=== PATIENT | male | born 1960 | race African-American/Black ===

== ENCOUNTER → 2016-12-25 | Outpatient (CLI) | payer MEDICARE ==
[~2016-12-25] MED LIST: ADVAIR; ASA; ASP81CT PO; ASP81TEC PO; ASPI-266 PO; ASPI-999 PO; ATOR20TA66 PO; ATOR40TA PO; ATOR80TA; ATOR80TA PO; CEPH500T PO; CIPR-225 PO; CLOP75TA PO; CLPD75T; FLUT1DIS26 IH; FLX20C; FRSM20T; FURO40TA4 PO; HYDR-2890 PO; HYDR-34; HYDR-3720 PO; HYDR-3816 PO; HYDR-3820 PO; HYDR1TAB PO; Hydrocodone/APAP; KCL10CCR PO; LIPITOR; LISI10TA PO; LISI10TA2 PO; LISINOPRIL; LOSA25TA15 PO; LSNP20T; MNTL10T PO; MTP25TSR; Metoprolol Succinate PO; NITR0.4T3 SL; NITR0.6T5 SL; OXYC-12 PO; OXYC10TA8 PO; PLAVIX; PRD20T PO; SINGULAIR; SPIRIVA; TIOT18CA IH; TRAM50TA2 PO; TRZ50T; [UNRECOGNIZED DRUG - CODE]
--- NOTE | 2016-12-25 13:55 | Diagnostic Imaging Report ---
EXAMINATION: Multiple views of the cervical spine. INDICATION: Neck pain. FINDINGS: There is straightening of the cervical spine curvature. The vertebral body heights are preserved. There is mild disc height loss at C4/5 and C5/6 levels. Mild anterior osteophytes at these two levels seen without significant posterior osteophytes. Lateral masses of C1 and C2 have normal alignment based on the open-mouth odontoid view. The prevertebral soft tissues appear grossly unremarkable with a suggestion of vascular calcifications in the carotid arteries, however. Sternotomy wires and cardiac pacemaker are seen. IMPRESSION: Mild mid to lower cervical spine disc degenerative changes. Dictated by: Dictated on workstation # [id number]
== END ==
LOC: RAD 08:09
PROVIDERS: ATTEND Family Medicine
DX: M50.321 Other cervical disc degeneration at C4-C5 level (principal)
CPT/HCPCS: 72040

== ENCOUNTER → 2016-12-25 | Outpatient (CLI) | payer MEDICARE ==
[~2016-12-25] MED LIST changes: +CATHETER FLUSH 10 ML SYR IV PRN; +REGADENOSON 0.4 MG/5 ML SYR (LEXISCAN) IV ONE
[2016-12-25 09:52] VITALS: BP 188/113
[2016-12-25 09:59] VITALS: BP 195/112
--- NOTE | 2016-12-26 08:53 | STRESS TEST ---
PROCEDURE PHYSICIAN: ALFREDO GOMES DATE OF PROCEDURE: 12/25/2016 RESTING AND POST REGADENOSON TECHNETIUM 99M TETROFOSMIN SPECT CT IMAGING: ORDERING PHYSICIAN: Rupali Barnes APRN. PRIMARY PHYSICIAN: Dr. Ryan OTHER PHYSICIAN: Dr. Gomes. CLINICAL DIAGNOSES: 1. Coronary artery disease. 2. Ischemic cardiomyopathy. Baseline images were carried out after injection of 10.64 mCi technetium 99m tetrofosmin. This was followed by 0.4 mg of regadenoson and 31.2 mCi technetium 99m tetrofosmin for stress imaging. The electrocardiogram showed sinus rhythm with incomplete left bundle branch block pattern. This did not change with regadenoson infusion. The patient noted mild shortness of breath and headache following regadenoson infusion, which resolved in a few minutes. Review of images at rest and following stress, indicates a relatively large apical perfusion defect that is fixed. Gated images show apical akinesis. Left ventricular ejection fraction is calculated to be 30%. Left ventricular end-diastolic volume is 165 mL. TID is absent (1.08). CONCLUSION: 1. Large apical infarction without significant ischemia. 2. Apical akinesis. 3. Cardiomegaly. 4. Impairment of global left ventricular systolic function with a calculated ejection fraction of 30%. 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
== END ==
LOC: CARD 08:04
PROVIDERS: ATTEND Internal Medicine Cardiovascular Disease
DX: I25.10 Atherosclerotic heart disease of native coronary artery without angina pectoris (principal); I25.5 Ischemic cardiomyopathy; I65.23 Occlusion and stenosis of bilateral carotid arteries; J43.8 Other emphysema; G89.4 Chronic pain syndrome; E78.4 Other hyperlipidemia; G47.33 Obstructive sleep apnea (adult) (pediatric); E66.09 Other obesity due to excess calories; Z72.0 Tobacco use
CPT/HCPCS: 78452; 93017

== ENCOUNTER 2017-01-22 09:10 | Day surgery (SDC) | payer MEDICARE ==
[2017-01-22] VITALS (12 sets, daily range): BP systolic 120–166; BP diastolic 60–105
[~2017-01-22] VITALS: Ht 170.2 cm; Wt 126.1 kg
[~2017-01-22 09:10] MED LIST changes: -CATHETER FLUSH 10 ML SYR IV PRN; -REGADENOSON 0.4 MG/5 ML SYR (LEXISCAN) IV ONE
[2017-01-22] MEDS ORDERED: NS IV 1000 ML 1,000 ML ONE (09:34)
[2017-01-22] MEDS ORDERED: LIDOCAINE 1% INJ 20 ML (XYLOCAINE) VIAL ONE (09:34)
[2017-01-22] MEDS ORDERED: HEParin (CATH LAB) 2,000 ML IV ONE (09:34)
[2017-01-22] MEDS ORDERED: NS IV 1000 ML 1,000 ML IV SCH ×2 (09:43→10:00)
[2017-01-22 10:06] LABS: RED BLOOD COUNT 4.64 10^6/uL (4.35-5.85); RED CELL DISTRIBUTION WIDTH 13.3 % (10.0-14.5); WHITE BLOOD COUNT 6.2 10^3/uL (4.3-11.0)
[2017-01-22 10:16] LABS: INR 0.9 (0.8-1.4); PROTHROMBIN TIME PATIENT 11.9 SEC (12.2-14.7)
[2017-01-22 10:24] LABS: ALANINE AMINOTRANSFERASE 23 U/L (0-55); ALBUMIN 4.1 G/DL (3.2-4.5); ANION GAP 7 MMOL/L (5-14); ASPARTATE AMINO TRANSFERASE 20 U/L (5-34); BILIRUBIN,TOTAL 0.4 MG/DL (0.1-1.0); BLOOD UREA NITROGEN 11 MG/DL (7-18); BUN/CREATININE RATIO 13; CALCIUM 9.3 MG/DL (8.5-10.1); CARBON DIOXIDE 26 MMOL/L (21-32); CHLORIDE 106 MMOL/L (98-107); CHOLESTEROL 242 MG/DL (< 200); CREATININE SERUM 0.82 MG/DL (0.60-1.30); DIRECT LDL 148 MG/DL (1-129); GFR ESTIMATED > 60; GLUCOSE 100 MG/DL (70-105); POTASSIUM 4.5 MMOL/L (3.6-5.0); SODIUM 139 MMOL/L (135-145); TOTAL PROTEIN 7.1 G/DL (6.4-8.2); TRIGLYCERIDES 242 MG/DL (<150); VLDL CHOLESTEROL 48 MG/DL (5-40)
[2017-01-22] MEDS ORDERED: ASPI-983 PO (11:15)
[2017-01-22] MEDS ORDERED: GABA-488 PO (11:15)
[2017-01-22] MEDS ORDERED: fentaNYL INJECTION 100 MCG/2 ML AMP ONE ×2 (11:30→12:48)
[2017-01-22] MEDS ORDERED: MIDAZOLAM 5 MG/5 ML (VERSED) VIAL ONE ×2 (11:30→12:48)
[2017-01-22] MEDS ORDERED: diphenhydrAMINE 50 MG/ML INJ (BENADRYL) ONE (11:31)
--- NOTE | 2017-01-22 11:51 | Cardiac Procedure Note-CS/ASA ---
Pre-Procedure Note Pre-Op Procedure Note H&P Reviewed The H&P was reviewed, patient examined and no changes noted. Date H&P Reviewed: January 22, 2017 Time H&P Reviewed: 11:51 Conscious Sedation Pre-Proced Time Reviewed: 11:51 ASA Class: 3 Airway Mallampati Classification: (port gamble appropriate class) I. II. III, IV Lungs Heart ASA score ASA 1: a normal healthy patient ASA 2: a patient with a mild systemic disease (mid diabetes, controlled hypertension, obesity ASA 3: a patient with a severe systemic disease that limits activity (angina , COPD, prior Myocardial infarction) ASA 4: a patient with an incapacitating disease that is a constant threat to life (CHF, renal failure) ASA 5: a moribund patient not expected to survive 24 hrs. (ruptured aneurysm) ASA 6: a declared brain patient whose organs are being harvested. For emergent operations, add the letter E after the classification Grade 3 Sedation Plan: Analgesia, Amnesia, Plan communicated to team members, Discussed options with patient/fam, Discussed risks with patient/fam Note The patient is an appropriate candidate to undergo the planned procedure, sedation, and anesthesia. The patient immediately re-assessed prior to indication. ALFREDO WANG MD FACP FAC CCDS January 22, 2017 11:51
[2017-01-22] MEDS ORDERED: HEParin 1000 UNIT/ML (10ML VIAL) FOR BOLUS ONE (12:22)
[2017-01-22] MEDS ORDERED: NITROGLYCERIN DRIP 25 MG/D5W 0 ML IV ONE (12:22)
[2017-01-22] MEDS ORDERED: EPTIFIBATIDE BOLUS 20 ML IV ONE (12:22)
[2017-01-22] MEDS ORDERED: ASPIRIN 81 MG CHEW (CHILDREN'S ASA) PO NR (14:00)
[2017-01-22] MEDS ORDERED: PATIENT MAY USE OWN MEDS, ALL PO SCH (14:00)
[2017-01-22] MEDS ORDERED: NITROGLYCERIN SUBLINGUAL 0.4 MG TAB (NITROSTAT) SL PRN (14:00)
[2017-01-22] MEDS ORDERED: FUROSEMIDE 40 MG (LASIX) TAB PO SCH (14:00)
[2017-01-22] MEDS ORDERED: CLOPIDOGREL 75 MG (PLAVIX) TABLET PO NR (14:00)
[2017-01-22] MEDS: NS IV 1000 ML 1,000 ML IV SCH ×2 (14:31→21:28)
[2017-01-22] MEDS: HYDROcodone/APAP 10 MG/325 MG (LORTAB) TAB PO PRN ×2 (15:06→21:27)
[2017-01-22] MEDS: RT-ADVAIR HFA 115/21 MCG PER PUFF IH SCH (18:08)
[2017-01-22] MEDS ORDERED: SALMETEROL IH SCH (21:00)
[2017-01-22] MEDS ORDERED: FLUTICASONE IH SCH (21:00)
[2017-01-22] MEDS ORDERED: GABAPENTIN 300 MG (NEURONTIN) CAP PO SCH (21:00)
[2017-01-22] MEDS ORDERED: [UNRECOGNIZED DRUG - OTHER] IH SCH (21:00)
[2017-01-23] VITALS: BP_SYST 107; BP_SYST 132; BP_DIAS 70; BP_DIAS 79
[2017-01-23 04:00] VITALS: BP 135/77
[2017-01-23 04:46] LABS: MEAN PLATELET VOLUME 10.5 FL (7.4-10.4); RED BLOOD COUNT 4.14 10^6/uL (4.35-5.85); RED CELL DISTRIBUTION WIDTH 13.2 % (10.0-14.5); WHITE BLOOD COUNT 5.7 10^3/uL (4.3-11.0)
[2017-01-23 05:07] LABS: ANION GAP 11 MMOL/L (5-14); BLOOD UREA NITROGEN 13 MG/DL (7-18); BUN/CREATININE RATIO 16; CALCIUM 8.7 MG/DL (8.5-10.1); CARBON DIOXIDE 21 MMOL/L (21-32); CHLORIDE 105 MMOL/L (98-107); CREATININE SERUM 0.82 MG/DL (0.60-1.30); GFR ESTIMATED > 60; GLUCOSE 140 MG/DL (70-105); POTASSIUM 3.9 MMOL/L (3.6-5.0); SODIUM 137 MMOL/L (135-145)
[2017-01-23] MEDS: RT-ADVAIR HFA 115/21 MCG PER PUFF IH SCH (06:42)
[2017-01-23 08:00] VITALS: BP 138/76
[2017-01-23] MEDS ORDERED: KCL 10 MEQ TAB (MICRO K) PO SCH (08:00)
--- NOTE | 2017-01-23 08:03 | Progress Note-Cardiology ---
Cardiology SOAP Progress Note Subjective: Generally feels better after yesterday's cor intervention. Denies cp. Has chronic JARQUIN. Denies palp or syncope or groin discomfort Objective: I&O/Vital Signs Vital Sign - Last 12Hours 01/22/17 01/22/17 01/23/17 01/23/17 20:00 21:00 00:00 01:00 Temp 97.7 Pulse 86 74 59 Resp 26 16 B/P (MAP) 166/90 107/70 Pulse Ox 96 96 O2 Flow Rate 2.00 2.00 2.00 01/23/17 01/23/17 04:00 06:43 Temp 97.8 Pulse 78 Resp 20 B/P (MAP) 135/77 Pulse Ox 98 95 O2 Flow Rate 2.00 2.00 Intake and Output 01/23/17 00:00 Intake Total 1000 ml Balance 1000 ml Weight (Pounds): 278 Weight (Ounces): 0.0 Weight (Calculated Kilograms): [phone] Groin site without hematoma: Yes Condition: DP/PT pulses palpable Bruising: mild bruising Constitutional: AAO x 3, well-developed, well-nourished Respiratory: No accessory muscle use, other (fair to good air entry; somewhat prolonged exp phase) Cardiovascular: regular rate-rhythm, S1 and S2, systolic murmur (faint SAM at card base) Gastrointestional: No tender, soft, No guarding, No rebound, audible bowel sounds Extremities: No clubbing, No cyanosis, No significant edema Neurologic/Psychiatric: grossly intact, power is 5/5 both on sides Skin: No rash on exposed areas, No ulcerations on exposed areas Results/Procedures: Labs Laboratory Tests 01/22/17 10:00: White Blood Count 6.2, Red Blood Count 4.64, Hemoglobin 14.0, Hematocrit 41, Mean Corpuscular Volume 89, Mean Corpuscular Hemoglobin 30, Mean Corpuscular Hemoglobin Concent 34, Red Cell Distribution Width 13.3, Platelet Count 192, Mean Platelet Volume 11.0H, Prothrombin Time 11.9L, INR Comment 0.9, Activated Partial Thromboplast Time 25, Sodium Level 139, Potassium Level 4.5, Chloride Level 106, Carbon Dioxide Level 26, Anion Gap 7, Blood Urea Nitrogen 11, Creatinine 0.82, Estimat Glomerular Filtration Rate > 60, BUN/Creatinine Ratio 13, Glucose Level 100, Calcium Level 9.3, Total Bilirubin 0.4, Aspartate Amino Transf (AST/SGOT) 20, Alanine Aminotransferase (ALT/SGPT) 23, Alkaline Phosphatase 55, Total Protein 7.1, Albumin 4.1, Triglycerides Level 242H, Cholesterol Level 242H, LDL Cholesterol Direct 148H, VLDL Cholesterol 48H, HDL Cholesterol 37L 01/23/17 04:05: White Blood Count 5.7, Red Blood Count 4.14L, Hemoglobin 12.4L, Hematocrit 38L, Mean Corpuscular Volume 91, Mean Corpuscular Hemoglobin 30, Mean Corpuscular Hemoglobin Concent 33, Red Cell Distribution Width 13.2, Platelet Count 180, Mean Platelet Volume 10.5H, Sodium Level 137, Potassium Level 3.9, Chloride Level 105, Carbon Dioxide Level 21, Anion Gap 11, Blood Urea Nitrogen 13, Creatinine 0.82, Estimat Glomerular Filtration Rate > 60, BUN/Creatinine Ratio 16, Glucose Level 140H, Calcium Level 8.7 Laboratory Tests 01/22/17 10:00 01/23/17 04:05 A/P: Assessment: Unstable angina, now resolved following cor interventions of 01/22/17 Coronary artery disease with a history of stenting of the left anterior descending artery several years ago. In 2006 he underwent bare-metal stenting of the left circumflex artery. In January 2010, he underwent left internal mammary artery graft to the left anterior descending Dr. Poole at [facility] in [place], [place]. Cardiac cath of 05-01-16 he underwent successful balloon angioplasty of the RI and L Cx arteries. At last card cath of 01/22/17, he underwent repeat PTCA to these vessels for stent restenoses. RI stents are overlapping Promus 2.5 x 38 and 2.5 x 12. L Cx stent is 4 x 24 Promus stent that extends from distal LMCA and jails the RI. These were placed in November 2014. There is another patent stent in the mid L CX. Chronic midvessel stenosis of the LAD, protected by a widely patent BANEGAS. There is severe ostial disease of a jailed LAD and proximal to mid-vessel occlusion of LAD; distal LAD is protected by an intact BANEGAS. Small, nondominant RCA with severe disease in its mid portion where it of too small a caliber for intervention. Mild to mod elevation of LVEDP; LVEF 35% MPI of December 2016 showed large apical infarction without significant ischemia; apical akinesis; cardiomegaly; LVEF 30% Impairment of global left ventricular systolic function with an ejection fraction of 37% on MPI of November 2014 and 45% on subsequent cardiac cath of . Abnormal ECG: ECG of 12/10/16 showed NSR with repol abn in anterolat leads On echo of 06/18/14 LVEF was 30-35%, distal septal and anterapical hypo/ akinesis and PASP 25 mmHg Status post defibrillator placement [place] [address] Reynaga at [facility]. Device was repolaced on 07/26/15 after it had reached RODRIGUEZ. It is fucntioning normally on interrogation of Aug 2016 Chronic obstructive pulmonary disease. Reactive airway disease. Chronic tobaccoism. Diastolic dysfunction of the left ventricle. Chronic joint and back discomfort. Sleep apnea for which he's on CPAP therapy. History of mild intermittent liver enzyme elevation, likely related to alcohol use, no elevation on lab work of Jun 2014. This is followed by Dr Ryan H/o intermittent noncompliance with medications and medical instructions. Hyperlipidemia - PCP managing Plan: * Complex management due to multiple comorbidities * I discussed his cor findings and interventions undertaken in detail with him * I discussed the pros and cons of his meds and importance of compliance and f/u * I have advised close outpatient f/u for now * I have again advised immediate and complete smoking cessation ALFREDO WANG MD [facility] CCDS January 23, 2017 08:03
[2017-01-23] MEDS ORDERED: ASPI-999 PO (08:13)
[2017-01-23] MEDS ORDERED: VALS40TA8 PO (08:13)
--- NOTE | 2017-01-23 08:14 | Discharge Inst-Post CATH ---
Discharge Inst-CATH Post Cardiac Cath D/C Inst Follow Up/Plan F/u with Dr Gomes in 1-2 weeks CARDIAC CATH DISCHARGE INSTRUCTIONS *Hold Metformin for 48 hours post heart cath. ACTIVITY * Go Home directly and rest. * Limit activity of the leg (or wrist if it was used) for 7 days including aerobics, swimming, jogging, bicycling, etc. * Restrict stair-climbing for 7 days if possible, if not, climb up with your non -cath leg, then bring together on the same step. * Avoid lifting, pushing, pulling or excessive movement of the affected extremity for 7 days. * Customary sexual activity may be resumed after 2 days-use caution not to use a position that strains or causes pain to the affected extremity. * No driving for 24 hours. * NO SMOKING. * Avoid straining for bowel movements for 7 days. * Gentle walking on level ground is allowed. * Returning to work will depend on the type of procedure and the results. Your doctor will discuss this with you. CALL YOUR DOCTOR FOR ANY OF THE FOLLOWING: *If bleeding from the puncture site occurs- Apply gentle pressure to site with clean cloth and call your doctor or EMS. * If a knot or lump forms under the skin, increases in size, or causes pain. * If bruising appears to be worsening or moving further down your leg instead of disappearing. * Temperature above 101 F. CARE OF YOUR GROIN INCISION; * Bruising or purple discoloration of the skin near the puncture site is common. * You may shower only, no bathtub bathing for 5 days. Be careful to avoid slipping as your leg may feel stiff. * If a closure device was used on your femoral artery, please see the attached guide regarding care of the device and your leg. * REMOVE the dressing from your groin the next day after your procedure in the shower. CARE OF YOUR WRIST INCISION; * Bruising or purple discoloration of the skin near the puncture site is common. * You may shower. * DO NOT submerge wrist. * Remove dressing in 24 hours. ALFREDO GOMES MD [facility] CCDS January 23, 2017 08:14
--- NOTE | 2017-01-23 08:14 | Discharge Inst-Cardiology ---
Discharge Inst-Cardiac Discharge Medications New Medications: Valsartan (Valsartan) 40 Mg Tablet 40 MG PO DAILY, #90 TAB 3 Refills Aspirin (Aspirin) 81 Mg Tab.chew 81 MG PO DAILY for 90 Days, #90 TAB 3 Refills Continued Medications: Atorvastatin Calcium (Atorvastatin Calcium) 20 Mg Tablet 20 MG PO DAILY, TAB Clopidogrel Bisulfate (Plavix 75 Mg) 75 Mg Tablet 75 MG PO DAILY, TAB Fluticasone/Salmeterol (Advair 250 Mcg/50 Mcg 60's) 1 Disk Inhp 1 PUFF IH BID, INHALER LAST FILLED 07-13-16 FOR 3 MONTH SUPPLY Furosemide (Furosemide) 40 Mg Tablet 40 MG PO Q48H, TAB LAST FILLED IN AUGUST 2016 FOR #30 Gabapentin (Gabapentin) 300 Mg Capsule 300 MG PO HS, CAP Hydrocodone Bit/Acetaminophen (Hydrocodon-Acetaminophn 10-325) 1 Each Tablet 1 TAB PO TID PRN for PAIN-MODERATE, TAB Nitroglycerin (Nitroglycerin) 0.4 Mg Tab.subl 0.4 MG SL UD PRN for CHEST PAIN, TAB 1 TABLET EVERY 5 MINUTES X 3 DOSES Potassium Chloride (Klor-Con 10) 10 Meq Tablet.sa 10 MEQ PO DAILY, TAB Tiotropium [place] (Spiriva) 1 Inh Aerp 1 CAP IH DAILY, EA LAST FILLED 07-13-16 FOR 3 MONTH SUPPLY Discontinued Medications: Aspirin (Aspirin EC) 81 Mg Tablet.dr 81 MG PO DAILY, TAB Patient Instructions Patient Instructions: No smoking ALFREDO WANG MD FACP FAC CCDS January 23, 2017 08:14
--- NOTE | 2017-01-23 08:21 | Cardiology Discharge Summary ---
Diagnosis/Chief Complaint Date of Admission 01/22/17 Date of Discharge 01/23/17 Admission Diagnosis Unstable angina Final/Discharge Diagnosis Unstable angina, now resolved following cor interventions of 01/22/17 Coronary artery disease with a history of stenting of the left anterior descending artery several years ago. In 2006 he underwent bare-metal stenting of the left circumflex artery. In January 2010, he underwent left internal mammary artery graft to the left anterior descending Dr. Poole at [facility] in [place], [place]. Cardiac cath of 05-01-16 he underwent successful balloon angioplasty of the RI and L Cx arteries. At last card cath of 01/22/17, he underwent repeat PTCA to these vessels for stent restenoses. RI stents are overlapping Promus 2.5 x 38 and 2.5 x 12. L Cx stent is 4 x 24 Promus stent that extends from distal LMCA and jails the RI. These were placed in November 2014. There is another patent stent in the mid L CX. Chronic midvessel stenosis of the LAD, protected by a widely patent BANEGAS. There is severe ostial disease of a jailed LAD and proximal to mid-vessel occlusion of LAD; distal LAD is protected by an intact BANEGAS. Small, nondominant RCA with severe disease in its mid portion where it of too small a caliber for intervention. Mild to mod elevation of LVEDP; LVEF 35% MPI of December 2016 showed large apical infarction without significant ischemia; apical akinesis; cardiomegaly; LVEF 30% Impairment of global left ventricular systolic function with an ejection fraction of 37% on MPI of November 2014 and 45% on subsequent cardiac cath of . Abnormal ECG: ECG of 12/10/16 showed NSR with repol abn in anterolat leads On echo of 06/18/14 LVEF was 30-35%, distal septal and anterapical hypo/ akinesis and PASP 25 mmHg Status post defibrillator placement [place] [address] Reynaga at [facility]. Device was repolaced on 07/26/15 after it had reached RODRIGUEZ. It is fucntioning normally on interrogation of Aug 2016 Chronic obstructive pulmonary disease. Reactive airway disease. Chronic tobaccoism. Diastolic dysfunction of the left ventricle. Chronic joint and back discomfort. Sleep apnea for which he's on CPAP therapy. History of mild intermittent liver enzyme elevation, likely related to alcohol use, no elevation on lab work of Jun 2014. This is followed by Dr Ryan H/o intermittent noncompliance with medications and medical instructions. Hyperlipidemia - PCP managing Chief Complaint/HPI Chief Complaint/HPI Please refer to H&P for details of admission Please refer to card cath report of 01/22/17 and progress note of 01/23/17 for hosp course and condition at discharge Time spent with patient in interview, exam, explanation of findings and interventions, discussion of CV issues and pros an cons of meds, discussion of risk factor modification, writing of notes, and prep of discharge: 7:43 am to 8: 21 am Discharge Summary Procedures Card cath and cor interventions on 01/22/17 Hospital Course Pending Labs Laboratory Tests 01/23/17 04:05: White Blood Count 5.7, Red Blood Count 4.14, Hemoglobin 12.4, Hematocrit 38, Mean Corpuscular Volume 91, Mean Corpuscular Hemoglobin 30, Mean Corpuscular Hemoglobin Concent 33, Red Cell Distribution Width 13.2, Platelet Count 180, Mean Platelet Volume 10.5, Sodium Level 137, Potassium Level 3.9, Chloride Level 105, Carbon Dioxide Level 21, Anion Gap 11, Blood Urea Nitrogen 13, Creatinine 0.82, Estimat Glomerular Filtration Rate > 60, BUN/Creatinine Ratio 16, Glucose Level 140, Calcium Level 8.7 Discussion & Recommendations Home Medications Reviewed patient Home Medication Reconciliation Form Discharge Home Medications: Reviewed and agree with Discharge Medication list on patient's Discharge Instruction sheet Instructions to patient/family F/u with Dr Gomes in 1-2 weeks ALFREDO GOMES MD [facility] CCDS January 23, 2017 08:21
[2017-01-23] MEDS ORDERED: ASPIRIN 81 MG CHEW (CHILDREN'S ASA) PO SCH (09:00)
[2017-01-23] MEDS ORDERED: CLOPIDOGREL 75 MG (PLAVIX) TABLET PO SCH (09:00)
[2017-01-23] MEDS ORDERED: ATORVASTATIN 20 MG (LIPITOR) TABLET PO SCH (09:00)
[2017-01-23] MEDS: HYDROcodone/APAP 10 MG/325 MG (LORTAB) TAB PO PRN (09:08)
--- NOTE | 2017-01-24 01:48 | CARDIAC CATHETERIZATION ---
DATE OF SERVICE: 01/22/2017 PROCEDURES: CARDIAC CATHETERIZATION AND CORONARY INTERVENTION REPORT. PROCEDURE: Cardiac catheterization and coronary intervention report. HISTORY: The patient is a 56-year-old man with coronary artery disease and a history of coronary artery bypass surgery and multiple percutaneous coronary interventions. He has been experiencing increasing exertional chest discomfort, suggestive of crescendo angina. Cardiac catheterization was carried out today after having obtained an informed consent. Informed consent was obtained for cardiac cath and ad hoc coronary intervention, if needed. DESCRIPTION OF PROCEDURE: He was brought to the cardiac catheterization laboratory in the fasting state. Right groin was prepared and draped in the usual sterile fashion. Then, 1% lidocaine for local anesthesia. Modified Seldinger technique was used to advance a 5-Bangladeshi sheath in the right femoral artery. A 5-Bangladeshi JL4 catheter used for left coronary angiography, a 5-Bangladeshi JR4 catheter was used for right coronary angiography. A 5-Bangladeshi pigtail catheter was used for left heart catheterization and left ventricular angiography. HEMODYNAMICS: Left ventricular end-diastolic pressure following coronary angiography was 19 mmHg. There was no significant pressure gradient on pullback across the aortic valve. Ascending aortic pressure was 135/71 with a mean of 95 mmHg. PERCUTANEOUS INTERVENTION OF THE LEFT CIRCUMFLEX ARTERY AND PERCUTANEOUS INTERVENTION TO THE RAMUS INTERMEDIUS ARTERY: Following completion of the diagnostic procedure, we carried out percutaneous intervention of the left circumflex, which had 80% in-stent restenosis within its proximal portion and also to the ramus intermedius artery, which had 90-95% stenosis in proximal stent and also at its ostium. We exchanged the sheath over a wire for a 7-Bangladeshi sheath. We gave 8000 units of intravenous heparin and a double bolus of Integrilin during the procedure. We used a 7-Bangladeshi JL4 guide catheter to engage the left coronary artery. We advanced a ChoICE extra support wire across the lesion in the left circumflex artery and the tip was placed in the distal vessel. We advanced a BMW wire across the lesions in the ramus intermedius artery and the tip was placed in the distal vessel. We carried out Cutting balloon angioplasty of the in-stent restenosis of the circumflex artery with a 3.5 x 10 mm balloon. This balloon was removed. We then advanced an Emerge 4.0 x 20 mm balloon to the left circumflex artery. For the ramus intermedius artery, we advanced an Emerge 2.5 x 30 mm balloon over the BMW wire. Both of these balloons were inflated simultaneously in a kissing balloon fashion. This inflation was performed twice in the left circumflex artery, balloon inflation was performed up to 14 atmospheres. In the ramus intermedius artery, balloon inflation was performed up to 20 atmospheres. Subsequently, angiography was repeated, after balloon deflation. It showed that the stenosis had improved significantly. In the left circumflex artery, following balloon angioplasty, there is less than 30% residual stenosis in the proximal coronary stent. In the ramus intermedius artery, there is less than 50% stenosis in the body of the proximal stent and in the ostium of the ramus intermedius artery. Flow throughout the vessels is normal. Angioplasty equipment was removed. Angiography of the right femoral artery was carried out through the sheath. Mynx was used to achieve hemostasis. He tolerated the procedure well. ACT at the conclusion of the procedure was 240 seconds. LEFT VENTRICULAR ANGIOGRAPHY: Left ventricular angiography was carried out in the right anterior oblique projection. There is moderate global hypokinesis in the left ventricle. Left ventricular ejection fraction is 35%. There does not appear to be significant mitral regurgitation. CORONARY ANGIOGRAPHY: Left main coronary artery has atherosclerotic plaque. Left anterior descending artery has 90% ostial stenosis. A stent extends from the left circumflex artery into the distal left main coronary artery. The portion of the stent within the left circumflex artery exhibited 80% stenosis to which successful Cutting balloon and balloon angioplasty was carried out for the reduction of stenosis to less than 30%. In the ramus intermedius, there was 95% ostial stenosis and up to 90% in-stent restenosis in the proximal stent. Following balloon angioplasty of the previous lesions, the residual stenosis was less than 50%. The left anterior descending artery has 90% ostial stenosis and is occluded in its mid portion. The distal left anterior descending artery is subserved by a patent left internal mammary artery graft. The right coronary artery is smaller and nondominant. Following the origin of the right ventricular branch, it is extremely small caliber and has up to 80-90% stenosis, but the vessel is of too small a caliber for intervention. LEFT INTERNAL MAMMARY ARTERY ANGIOGRAPHY: Left internal mammary artery angiography was performed with a left internal mammary artery catheter and this was prior to the coronary interventional procedure. It showed patent left internal mammary artery graft to left anterior descending artery with good distal runoff. CONCLUSIONS: 1. Coronary artery disease consisting of 90% ostial stenosis at left anterior descending and mid vessel occlusions of the left anterior descending, but the distal left anterior descending is subserved by a patent left internal mammary artery graft that does not exhibit significant disease. 2. The circumflex artery had 80% stenosis in its proximal portion within a previously placed stent that extends from the left circumflex artery into the left main coronary artery. To this lesion, successful balloon angioplasty was carried out for the reduction of stenosis to less than 30%. 3. The ramus intermedius artery had 95% ostial and up to 90% in-stent restenosis (in the proximal ramus intermedius artery stent). To this successful balloon angioplasty was carried out for the reduction of stenosis to less than 50% residual. 4. The right coronary artery is small and nondominant and had 80-90% stenosis at parts where it is of too small caliber for any intervention. 5. Elevated left ventricular end-diastolic pressures. 6. Moderate global hypokinesis of the left ventricle with left ventricular ejection fraction of 35%. DISCUSSION AND RECOMMENDATIONS: He is being hospitalized after today's intervention. Medications will be adjusted as tolerated. Further recommendations will be based on the hospital course. Job ID: [id number] DocumentID: [id number] Dictated Date: 01/22/2017 13:40:50 Machine Sizer Date: 01/23/2017 11:04:25 Dictated By: ALFREDO WANG MD, MA, FACP, FACC, MTDD
== END 2017-01-23 11:00 | disposition home or self-care (01) ==
LOC: CATH 09:10 → ICU 13:50 → CATH 01-23 11:00
PROVIDERS: ATTEND Internal Medicine Cardiovascular Disease
DX: I25.110 Atherosclerotic heart disease of native coronary artery with unstable angina pectoris (principal); T82.857A Stenosis of other cardiac prosthetic devices, implants and grafts, initial encounter; J44.9 Chronic obstructive pulmonary disease, unspecified; G47.30 Sleep apnea, unspecified; E78.5 Hyperlipidemia, unspecified; Z91.19 Patient's noncompliance with other medical treatment and regimen; Z72.0 Tobacco use; Z79.899 Other long term (current) drug therapy; Z95.810 Presence of automatic (implantable) cardiac defibrillator; Z95.1 Presence of aortocoronary bypass graft
CPT/HCPCS: 36415; 80048; 80053; 80061; 85027; 85347; 85610; 85730; 87081; 92920; 93005; 93459; 94640

== ENCOUNTER 2017-12-10 08:14 | Day surgery (SDC) | payer MEDICARE ==
[~2017-12-10] VITALS: Ht 172.7 cm; Wt 122.5 kg
[2017-12-10] VITALS (12 sets, daily range): BP systolic 131–155; BP diastolic 72–92
[~2017-12-10 08:14] MED LIST changes: +ASPI-983 PO; +GABA-488 PO; +HEParin (CATH LAB) 2,000 ML IV ONE; +HYDR-34 PO; -HYDR-3816 PO; -NITR0.4T3 SL; +NITR0.4T42 SL; +NS IV 1000 ML 1,000 ML ONE; +VALS40TA8 PO
--- OUTSIDE RECORDS SUMMARY | 2017-12-10 08:21 | XMS REPORT | Continuity of Care Document ---
Author Author On License Of [facility] Address Unknown Phone Unavailable Allergies Active Description Code Type Severity Reaction Onset Reported/Identified Relationship to Patient Clinical Status Yes Penicillins [id number] Drug Allergy Unknown N/A 01/14/2006 Yes Penicillins Drug Allergy 10/11/2008 Yes Penicillins Drug Allergy N/A N/A 10/11/2008 Yes ketorolac [id number] Drug Allergy Unknown N/A 03/30/2010 Yes Oxycodone Drug Allergy N/A N/A 03/24/2014 Medications There is no data. Problems Date Dx Coded Attending Type Code Diagnosis Diagnosed By 08/04/2008 KEE MAYERS APRN 719.46 Pain In Joint Involving Lower Leg 08/04/2008 KEE MAYERS APRN S 719.46 Pain In Joint Involving Lower Leg 08/04/2008 KEE MAYERS APRN S 719.46 Pain In Joint Involving Lower Leg 08/04/2008 719.46 Pain In Joint Involving Lower Leg 08/04/2008 ZAFAR AVALOS MD 719.46 Pain In Joint Involving Lower Leg 08/04/2008 ANDIE HERNÁNDEZ DO 719.46 Pain In Joint Involving Lower Leg 08/04/2008 KEE MAYERS APRN S 719.46 Pain In Joint Involving Lower Leg 08/04/2008 KEE MAYERS APRN S 719.46 Pain In Joint Involving Lower Leg 08/04/2008 KEE MAYERS APRN S 719.46 Pain In Joint Involving Lower Leg 08/31/2008 KEE MAYERS APRN S 786.3 HEMOPTYSIS 08/31/2008 KEE MAYERS APRN S 786.3 HEMOPTYSIS 08/31/2008 KEE MAYERS APRN S 786.3 HEMOPTYSIS 08/31/2008 786.3 HEMOPTYSIS 08/31/2008 ZAFAR AVALOS MD 786.3 HEMOPTYSIS 08/31/2008 ANDIE HERNÁNDEZ DO K 786.3 HEMOPTYSIS 08/31/2008 AMINA MAYERS APRNNDA S 786.3 HEMOPTYSIS 08/31/2008 RIANA GERARD KEE S 786.3 HEMOPTYSIS 08/31/2008 RIANA GERARD KEE S 786.3 HEMOPTYSIS 09/18/2008 AMINA MAYERS APRNNDA S 728.82 Foreign Body Granuloma Of Muscle 09/18/2008 RIANA GERARD KEE S 728.82 Foreign Body Granuloma Of Muscle 09/18/2008 RIANA GERARD KEE S 728.82 Foreign Body Granuloma Of Muscle 09/18/2008 728.82 Foreign Body Granuloma Of Muscle 09/18/2008 ZAFAR AVALOS MD 728.82 Foreign Body Granuloma Of Muscle 09/18/2008 LUDWIN HERNÁNDEZ DOA K 728.82 Foreign Body Granuloma Of Muscle 09/18/2008 RIANA GERARD KEE S 728.82 Foreign Body Granuloma Of Muscle 09/18/2008 RIANA GERARD KEE S 728.82 Foreign Body Granuloma Of Muscle 09/18/2008 RIANA SUPPLIER DIVERSITY DIRECTOR, KEE S 728.82 Foreign Body Granuloma Of Muscle 09/20/2008 RIANA GERARD KEE S 272.4 HYPERLIPIDEMIA 09/20/2008 RIANA GERARD KEE S 728.85 Spasm Of Muscle 09/20/2008 RIANA GERARD KEE S 272.4 HYPERLIPIDEMIA 09/20/2008 RIANA GERARD KEE S 728.85 Spasm Of Muscle 09/20/2008 RIANA GERARD KEE S 272.4 HYPERLIPIDEMIA 09/20/2008 RIANA GERARD, KEE S 728.85 Spasm Of Muscle 09/20/2008 272.4 HYPERLIPIDEMIA 09/20/2008 728.85 Spasm Of Muscle 09/20/2008 ZAFAR AVALOS MD 272.4 HYPERLIPIDEMIA 09/20/2008 ZAFAR AVALOS MD 728.85 Spasm Of Muscle 09/20/2008 LUDWIN HERNÁNDEZ DOA K 272.4 HYPERLIPIDEMIA 09/20/2008 HERNÁNDEZ DO ANDIE K 728.85 Spasm Of Muscle 09/20/2008 RIANA SUPPLIER DIVERSITY DIRECTOR, KEE S 272.4 HYPERLIPIDEMIA 09/20/2008 RIANA SUPPLIER DIVERSITY DIRECTOR, KEE S 728.85 Spasm Of Muscle 09/20/2008 RIANA SUPPLIER DIVERSITY DIRECTOR, KEE S 272.4 HYPERLIPIDEMIA 09/20/2008 RIANA SUPPLIER DIVERSITY DIRECTOR, KEE S 728.85 Spasm Of Muscle 09/20/2008 RIANA SUPPLIER DIVERSITY DIRECTOR, KEE S 272.4 HYPERLIPIDEMIA 09/20/2008 RIANA SUPPLIER DIVERSITY DIRECTOR, KEE S 728.85 Spasm Of Muscle 09/23/2008 RIANA SUPPLIER DIVERSITY DIRECTOR, KEE S 270.7 HYPERGLYCEMIA 09/23/2008 RIANA SUPPLIER DIVERSITY DIRECTOR, KEE S 715.90 Osteoarthrosis Unspecified Whether Generalized Or Localized Involving Unspecified Site 09/23/2008 RIANA SUPPLIER DIVERSITY DIRECTOR, KEE S 270.7 HYPERGLYCEMIA 09/23/2008 RIANA LIN, KEE S 715.90 Osteoarthrosis Unspecified Whether Generalized Or Localized Involving Unspecified Site 09/23/2008 RIANA LIN, KEE S 270.7 HYPERGLYCEMIA 09/23/2008 RIANA LIN, KEE S 715.90 Osteoarthrosis Unspecified Whether Generalized Or Localized Involving Unspecified Site 09/23/2008 270.7 HYPERGLYCEMIA 09/23/2008 715.90 Osteoarthrosis Unspecified Whether Generalized Or Localized Involving Unspecified Site 09/23/2008 ZAFAR AVALOS MD 270.7 HYPERGLYCEMIA 09/23/2008 ZAFAR AVALOS MD 715.90 Osteoarthrosis Unspecified Whether Generalized Or Localized Involving Unspecified Site 09/23/2008 ANDIE HERNÁNDEZ DO K 270.7 HYPERGLYCEMIA 09/23/2008 ANDIE HERNÁNDEZ DO K 715.90 Osteoarthrosis Unspecified Whether Generalized Or Localized Involving Unspecified Site 09/23/2008 RIANA LIN, KEE S 270.7 HYPERGLYCEMIA 09/23/2008 RIANA LIN, KEE S 715.90 Osteoarthrosis Unspecified Whether Generalized Or Localized Involving Unspecified Site 09/23/2008 RIANA SUPPLIER DIVERSITY DIRECTOR, KEE S 270.7 HYPERGLYCEMIA 09/23/2008 RIANA LIN, KEE S 715.90 Osteoarthrosis Unspecified Whether Generalized Or Localized Involving Unspecified Site 09/23/2008 RIANA SUPPLIER DIVERSITY DIRECTOR, KEE S 270.7 HYPERGLYCEMIA 09/23/2008 RIANA SUPPLIER DIVERSITY DIRECTOR, KEE S 715.90 Osteoarthrosis Unspecified Whether Generalized Or Localized Involving Unspecified Site 10/11/2008 RIANA SUPPLIER DIVERSITY DIRECTOR, KEE S 251.1 Other Specified Hypoglycemia 10/11/2008 RIANA SUPPLIER DIVERSITY DIRECTOR, KEE S 272.0 Pure Hypercholesterolemia 10/11/2008 RIANA SUPPLIER DIVERSITY DIRECTOR, KEE S 729.5 Pain In Limb 10/11/2008 RIANA SUPPLIER DIVERSITY DIRECTOR, KEE S 251.1 Other Specified Hypoglycemia 10/11/2008 RIANA SUPPLIER DIVERSITY DIRECTOR, KEE S 272.0 Pure Hypercholesterolemia 10/11/2008 RIANA SUPPLIER DIVERSITY DIRECTOR, KEE S 729.5 Pain In Limb 10/11/2008 RIANA SUPPLIER DIVERSITY DIRECTOR, KEE S 251.1 Other Specified Hypoglycemia 10/11/2008 RIANA SUPPLIER DIVERSITY DIRECTOR, KEE S 272.0 Pure Hypercholesterolemia 10/11/2008 RIANA SUPPLIER DIVERSITY DIRECTOR, KEE S 729.5 Pain In Limb 10/11/2008 251.1 Other Specified Hypoglycemia 10/11/2008 272.0 Pure Hypercholesterolemia 10/11/2008 729.5 Pain In Limb 10/11/2008 ZAFAR AVALOS MD 251.1 Other Specified Hypoglycemia 10/11/2008 ZAFAR AVALOS MD 272.0 Pure Hypercholesterolemia 10/11/2008 ZAFAR AVALOS MD 729.5 Pain In Limb 10/11/2008 HERNÁNDEZ DO, ANDIE K 251.1 Other Specified Hypoglycemia 10/11/2008 HERNÁNDEZ DO, ANDIE K 272.0 Pure Hypercholesterolemia 10/11/2008 HERNÁNDEZ DO, ANDIE K 729.5 Pain In Limb 10/11/2008 RIANA SUPPLIER DIVERSITY DIRECTOR, KEE S 251.1 Other Specified Hypoglycemia 10/11/2008 RIANA SUPPLIER DIVERSITY DIRECTOR, KEE S 272.0 Pure Hypercholesterolemia 10/11/2008 RIANA SUPPLIER DIVERSITY DIRECTOR, KEE S 729.5 Pain In Limb 10/11/2008 RIAAN SUPPLIER DIVERSITY DIRECTOR, KEE S 251.1 Other Specified Hypoglycemia 10/11/2008 RIANA SUPPLIER DIVERSITY DIRECTOR, KEE S 272.0 Pure Hypercholesterolemia 10/11/2008 RIANA SUPPLIER DIVERSITY DIRECTOR, KEE S 729.5 Pain In Limb 10/11/2008 RIANA SUPPLIER DIVERSITY DIRECTOR, KEE S 251.1 Other Specified Hypoglycemia 10/11/2008 RIANA SUPPLIER DIVERSITY DIRECTOR, KEE S 272.0 Pure Hypercholesterolemia 10/11/2008 AMINA MAYERS APRNNDA S 729.5 Pain In Limb 01/10/2009 RIANA GERARD, KEE S 401.1 ESSENTIAL HYPERTENSION BENIGN 01/10/2009 RIANA GERARD, KEE S 401.1 ESSENTIAL HYPERTENSION BENIGN 01/10/2009 AMINA MAYERS APRNNDA S 401.1 ESSENTIAL HYPERTENSION BENIGN 01/10/2009 401.1 ESSENTIAL HYPERTENSION BENIGN 01/10/2009 ZAFAR AVALOS MD 401.1 ESSENTIAL HYPERTENSION BENIGN 01/10/2009 ANDIE HERNÁNDEZ DO 401.1 ESSENTIAL HYPERTENSION BENIGN 01/10/2009 AMINA MAYERS APRNNDA S 401.1 ESSENTIAL HYPERTENSION BENIGN 01/10/2009 AMINA MAYERS APRNNDA S 401.1 ESSENTIAL HYPERTENSION BENIGN 01/10/2009 ALTON MAYERS APRNA S 401.1 ESSENTIAL HYPERTENSION BENIGN 03/04/2009 AMINA MAYERS APRNNDA S 715.09 Djd-generalized 03/04/2009 AMINA MAYERS APRNNDA S 715.09 Djd-generalized 03/04/2009 RIANA GERARD, KEE S 715.09 Djd-generalized 03/04/2009 715.09 Djd- generalized 03/04/2009 ZAFAR AVALOS MD 715.09 Djd-generalized 03/04/2009 ANDIE HERNÁNDEZ DO 715.09 Djd-generalized 03/04/2009 RIANA GERARD EKE S 715.09 Djd-generalized 03/04/2009 RIANA GERARD KEE S 715.09 Djd-generalized 03/04/2009 RIANA GERARD KEE S 715.09 Djd-generalized 04/20/2009 AMINA MAYERS APRNNDA S NODX No Diagnosis 04/20/2009 AMINA MAYERS APRNNDA S NODX No Diagnosis 04/20/2009 AMINA MAYERS APRNNDA S NODX No Diagnosis 04/20/2009 NODX No Diagnosis 04/20/2009 ZAFAR AVALOS MD NODX No Diagnosis 04/20/2009 HERNÁNDEZ DO, ANDIE K NODX No Diagnosis 04/20/2009 RIANA SUPPLIER DIVERSITY DIRECTOR, KEE S NODX No Diagnosis 04/20/2009 RIANA SUPPLIER DIVERSITY DIRECTOR, KEE S NODX No Diagnosis 04/20/2009 RIANA SUPPLIER DIVERSITY DIRECTOR, KEE S NODX No Diagnosis 06/22/2009 RIANA SUPPLIER DIVERSITY DIRECTOR, KEE S 558.9 Gastroenteritis Noninfectious 06/22/2009 RIANA SUPPLIER DIVERSITY DIRECTOR, KEE S 558.9 Gastroenteritis Noninfectious 06/22/2009 RIANA SUPPLIER DIVERSITY DIRECTOR, KEE S 558.9 Gastroenteritis Noninfectious 06/22/2009 558.9 Gastroenteritis Noninfectious 06/22/2009 ZAFAR AVALOS MD 558.9 Gastroenteritis Noninfectious 06/22/2009 ANDIE HERNÁNDEZ DO K 558.9 Gastroenteritis Noninfectious 06/22/2009 RIANA SUPPLIER DIVERSITY DIRECTOR, KEE S 558.9 Gastroenteritis Noninfectious 06/22/2009 RIANA SUPPLIER DIVERSITY DIRECTOR, KEE S 558.9 Gastroenteritis Noninfectious 06/22/2009 RIANA SUPPLIER DIVERSITY DIRECTOR, KEE S 558.9 Gastroenteritis Noninfectious 02/13/2010 RIANA SUPPLIER DIVERSITY DIRECTOR, KEE S 414.01 Coronary Artery Stenosis Multi-vessel 02/13/2010 RIANA GERARD, KEE S 414.01 Coronary Artery Stenosis Multi-vessel 02/13/2010 RIANA SUPPLIER DIVERSITY DIRECTOR, KEE S 414.01 Coronary Artery Stenosis Multi-vessel 02/13/2010 414.01 Coronary Artery Stenosis Multi-vessel 02/13/2010 ZAFAR AVALOS MD 414.01 Coronary Artery Stenosis Multi-vessel 02/13/2010 BETTY SANCHEZ, ANDIE K 414.01 Coronary Artery Stenosis Multi-vessel 02/13/2010 RIANA SUPPLIER DIVERSITY DIRECTOR, KEE S 414.01 Coronary Artery Stenosis Multi-vessel 02/13/2010 RIANA LIN, KEE S 414.01 Coronary Artery Stenosis Multi-vessel 02/13/2010 RIANA SUPPLIER DIVERSITY DIRECTOR, KEE S 414.01 Coronary Artery Stenosis Multi-vessel 04/17/2010 RIANA SUPPLIER DIVERSITY DIRECTOR, KEE S 305.1 NICOTINE DEPENDENCE 04/17/2010 RIANA GERARD KEE S 733.6 Costochondritis (tietze's Syndrome) 04/17/2010 RIANA SUPPLIER DIVERSITY DIRECTOR, KEE S 305.1 NICOTINE DEPENDENCE 04/17/2010 RIANA SUPPLIER DIVERSITY DIRECTOR, KEE S 733.6 Costochondritis (tietze's Syndrome) 04/17/2010 RIANA SUPPLIER DIVERSITY DIRECTOR, KEE S 305.1 NICOTINE DEPENDENCE 04/17/2010 RIANA SUPPLIER DIVERSITY DIRECTOR, KEE S 733.6 Costochondritis (tietze's Syndrome) 04/17/2010 305.1 NICOTINE DEPENDENCE 04/17/2010 733.6 Costochondritis (tietze's Syndrome) 04/17/2010 ZAFAR AVALOS MD 305.1 NICOTINE DEPENDENCE 04/17/2010 ZAFAR AVALOS MD 733.6 Costochondritis (tietze's Syndrome) 04/17/2010 HERNÁNDEZ DO, ANDIE K 305.1 NICOTINE DEPENDENCE 04/17/2010 HERNÁNDEZ DO, ANDIE K 733.6 Costochondritis (tietze's Syndrome) 04/17/2010 RIANA SUPPLIER DIVERSITY DIRECTOR, KEE S 305.1 NICOTINE DEPENDENCE 04/17/2010 RIANA SUPPLIER DIVERSITY DIRECTOR, KEE S 733.6 Costochondritis (tietze's Syndrome) 04/17/2010 RIANA SUPPLIER DIVERSITY DIRECTOR, KEE S 305.1 NICOTINE DEPENDENCE 04/17/2010 RIANA SUPPLIER DIVERSITY DIRECTOR, KEE S 733.6 Costochondritis (tietze's Syndrome) 04/17/2010 RIANA SUPPLIER DIVERSITY DIRECTOR, KEE S 305.1 NICOTINE DEPENDENCE 04/17/2010 RIANA SUPPLIER DIVERSITY DIRECTOR, KEE S 733.6 Costochondritis (tietze's Syndrome) 11/01/2010 RIANA SUPPLIER DIVERSITY DIRECTOR, KEE S 786.50 Chest Pain 11/01/2010 RIANA SUPPLIER DIVERSITY DIRECTOR, KEE S 786.50 Chest Pain 11/01/2010 RIANA SUPPLIER DIVERSITY DIRECTOR, KEE S 786.50 Chest Pain 11/01/2010 786.50 Chest Pain 11/01/2010 ZAFAR AVALOS MD 786.50 Chest Pain 11/01/2010 HERNÁNDEZ DO, ANDIE K 786.50 Chest Pain 11/01/2010 RIANA SUPPLIER DIVERSITY DIRECTOR, KEE S 786.50 Chest Pain 11/01/2010 RIANA SUPPLIER DIVERSITY DIRECTOR, KEE S 786.50 Chest Pain 11/01/2010 RIANA SUPPLIER DIVERSITY DIRECTOR, KEE S 786.50 Chest Pain 12/12/2010 RIANA SUPPLIER DIVERSITY DIRECTOR, KEE S 724.2 lower back pain 12/12/2010 RIANA SUPPLIER DIVERSITY DIRECTOR, KEE S 724.2 lower back pain 12/12/2010 RIANA SUPPLIER DIVERSITY DIRECTOR, KEE S 724.2 lower back pain 12/12/2010 724.2 lower back pain 12/12/2010 ZAFAR AVALOS MD 724.2 lower back pain 12/12/2010 HERNÁNDEZ DO, ANDIE K 724.2 lower back pain 12/12/2010 RIANA SUPPLIER DIVERSITY DIRECTOR, KEE S 724.2 lower back pain 12/12/2010 RIANA SUPPLIER DIVERSITY DIRECTOR, KEE S 724.2 lower back pain 12/12/2010 RIANA SUPPLIER DIVERSITY DIRECTOR, KEE S 724.2 lower back pain 05/29/2011 RIANA SUPPLIER DIVERSITY DIRECTOR, KEE S 493.00 ASTHMA EXTRINSIC 05/29/2011 RIANA SUPPLIER DIVERSITY DIRECTOR, KEE S 493.00 ASTHMA EXTRINSIC 05/29/2011 RIANA SUPPLIER DIVERSITY DIRECTOR, KEE S 493.00 ASTHMA EXTRINSIC 05/29/2011 493.00 ASTHMA EXTRINSIC 05/29/2011 ZAFAR AVALOS MD 493.00 ASTHMA EXTRINSIC 05/29/2011 HERNÁNDEZ DO, ANDIE K 493.00 ASTHMA EXTRINSIC 05/29/2011 RIANA SUPPLIER DIVERSITY DIRECTOR, KEE S 493.00 ASTHMA EXTRINSIC 05/29/2011 RIANA SUPPLIER DIVERSITY DIRECTOR, KEE S 493.00 ASTHMA EXTRINSIC 05/29/2011 RIANA SUPPLIER DIVERSITY DIRECTOR, KEE S 493.00 ASTHMA EXTRINSIC 07/30/2011 RIANA SUPPLIER DIVERSITY DIRECTOR, KEE S 780.57 UNSPECIFIED SLEEP APNEA 07/30/2011 RIANA SUPPLIER DIVERSITY DIRECTOR, KEE S 780.57 UNSPECIFIED SLEEP APNEA 07/30/2011 RIANA SUPPLIER DIVERSITY DIRECTOR, KEE S 780.57 UNSPECIFIED SLEEP APNEA 07/30/2011 780.57 UNSPECIFIED SLEEP APNEA 07/30/2011 ZAFAR AVALOS MD 780.57 UNSPECIFIED SLEEP APNEA 07/30/2011 HERNÁNDEZ DO, ANDIE K 780.57 UNSPECIFIED SLEEP APNEA 07/30/2011 RIANA SUPPLIER DIVERSITY DIRECTOR, KEE S 780.57 UNSPECIFIED SLEEP APNEA 07/30/2011 RIANA SUPPLIER DIVERSITY DIRECTOR, KEE S 780.57 UNSPECIFIED SLEEP APNEA 07/30/2011 RIANA SUPPLIER DIVERSITY DIRECTOR, KEE S 780.57 UNSPECIFIED SLEEP APNEA 05/08/2012 RIANA SUPPLIER DIVERSITY DIRECTOR, KEE S 338.29 CHRONIC PAIN 05/08/2012 RIANA SUPPLIER DIVERSITY DIRECTOR, KEE S 414.00 CAD 05/08/2012 RIANA SUPPLIER DIVERSITY DIRECTOR, KEE S V18.0 FAMILY HISTORY OF DIABETES MELLITUS 05/08/2012 RIANA SUPPLIER DIVERSITY DIRECTOR, KEE S 338.29 CHRONIC PAIN 05/08/2012 RIANA LIN, KEE S 414.00 CAD 05/08/2012 AMINA MAYERS APRNNDA S V18.0 FAMILY HISTORY OF DIABETES MELLITUS 05/08/2012 RIANA GERARD KEE S 338.29 CHRONIC PAIN 05/08/2012 AMINA MAYERS APRNNDA S 414.00 CAD 05/08/2012 AMINA MAYERS APRNNDA S V18.0 FAMILY HISTORY OF DIABETES MELLITUS 05/08/2012 338.29 CHRONIC PAIN 05/08/2012 414.00 CAD 05/08/2012 V18.0 FAMILY HISTORY OF DIABETES MELLITUS 05/08/2012 ZAFAR AVALOS MD 338.29 CHRONIC PAIN 05/08/2012 ZAFAR AVALOS MD 414.00 CAD 05/08/2012 ZAFAR AVALOS MD V18.0 FAMILY HISTORY OF DIABETES MELLITUS 05/08/2012 BETTY DOLUDWINA K 338.29 CHRONIC PAIN 05/08/2012 LUDWIN HERNÁNDEZ DOA K 414.00 CAD 05/08/2012 HERNÁNDEZ LUDWIN SANCHEZA K V18.0 FAMILY HISTORY OF DIABETES MELLITUS 05/08/2012 AMINA MAYERS APRNNDA S 338.29 CHRONIC PAIN 05/08/2012 AMINA MAYERS APRNNDA S 414.00 CAD 05/08/2012 AMINA MAYERS APRNNDA S V18.0 FAMILY HISTORY OF DIABETES MELLITUS 05/08/2012 RIANA GERARD KEE S 338.29 CHRONIC PAIN 05/08/2012 RIANA GERARD KEE S 414.00 CAD 05/08/2012 AMINA MAYERS APRNNDA S V18.0 FAMILY HISTORY OF DIABETES MELLITUS 05/08/2012 RIANA SUPPLIER DIVERSITY DIRECTOR, KEE S 338.29 CHRONIC PAIN 05/08/2012 RIANA SUPPLIER DIVERSITY DIRECTOR, KEE S 414.00 CAD 05/08/2012 RIANA SUPPLIER DIVERSITY DIRECTOR, KEE S V18.0 FAMILY HISTORY OF DIABETES MELLITUS 06/24/2012 RIANA SUPPLIER DIVERSITY DIRECTOR, KEE S V04.81 FLU DX (MEDICARE ONLY) 06/24/2012 RIANA SUPPLIER DIVERSITY DIRECTOR, KEE S V04.81 FLU DX (MEDICARE ONLY) 06/24/2012 RIANA SUPPLIER DIVERSITY DIRECTOR, KEE S V04.81 FLU DX (MEDICARE ONLY) 06/24/2012 V04.81 FLU DX ( MEDICARE ONLY) 06/24/2012 ZAFAR AVALOS MD V04.81 FLU DX (MEDICARE ONLY) 06/24/2012 ANDIE HERNÁNDEZ DO V04.81 FLU DX (MEDICARE ONLY) 06/24/2012 RIANA SUPPLIER DIVERSITY DIRECTOR, KEE S V04.81 FLU DX (MEDICARE ONLY) 06/24/2012 RIANA LIN, KEE S V04.81 FLU DX (MEDICARE ONLY) 06/24/2012 RIANA SUPPLIER DIVERSITY DIRECTOR, KEE S V04.81 FLU DX (MEDICARE ONLY) 10/22/2012 RIANA LIN, KEE S 354.0 CARPAL TUNNEL SYNDROME 10/22/2012 354.0 CARPAL TUNNEL SYNDROME 10/22/2012 ZAFAR AVALOS MD 354.0 CARPAL TUNNEL SYNDROME 10/22/2012 ANDIE HERNÁNDEZ DO 354.0 CARPAL TUNNEL SYNDROME 10/22/2012 RIANA SUPPLIER DIVERSITY DIRECTOR, KEE S 354.0 CARPAL TUNNEL SYNDROME 10/22/2012 RIANA SUPPLIER DIVERSITY DIRECTOR, KEE S 354.0 CARPAL TUNNEL SYNDROME 10/22/2012 RIANA SUPPLIER DIVERSITY DIRECTOR, KEE S 354.0 CARPAL TUNNEL SYNDROME 04/13/2013 780.2 SYNCOPE 04/13/2013 ZAFAR AVALOS MD 780.2 SYNCOPE 04/13/2013 ANDIE HERNÁNDEZ DO 780.2 SYNCOPE 04/13/2013 RIANA SUPPLIER DIVERSITY DIRECTOR, KEE S 780.2 SYNCOPE 04/13/2013 RIANA SUPPLIER DIVERSITY DIRECTOR, KEE S 780.2 SYNCOPE 04/13/2013 RIANA LIN, KEE S 780.2 SYNCOPE 04/17/2013 493.90 ASTHMA UNSPECIFIED 04/17/2013 ZAFAR AVALOS MD 493.90 ASTHMA UNSPECIFIED 04/17/2013 ANDIE HERNÁNDEZ DO 493.90 ASTHMA UNSPECIFIED 04/17/2013 RIANA SUPPLIER DIVERSITY DIRECTOR, KEE S 493.90 ASTHMA UNSPECIFIED 04/17/2013 RIANA SUPPLIER DIVERSITY DIRECTOR, KEE S 493.90 ASTHMA UNSPECIFIED 04/17/2013 RIANA SUPPLIER DIVERSITY DIRECTOR, KEE S 493.90 ASTHMA UNSPECIFIED 04/27/2013 ZAFAR AVALOS MD 327.23 sleep apnea 04/27/2013 ANDIE HERNÁNDEZ DO 327.23 sleep apnea 04/27/2013 RIANA SUPPLIER DIVERSITY DIRECTOR, KEE S 327.23 sleep apnea 04/27/2013 RIANA SUPPLIER DIVERSITY DIRECTOR, KEE S 327.23 sleep apnea 04/27/2013 RIANA SUPPLIER DIVERSITY DIRECTOR, KEE S 327.23 sleep apnea 11/10/2013 RIANA SUPPLIER DIVERSITY DIRECTOR, KEE S 698.9 PRURITUS NOS 11/10/2013 RIANA SUPPLIER DIVERSITY DIRECTOR, KEE S 698.9 PRURITUS NOS 11/10/2013 RIANA SUPPLIER DIVERSITY DIRECTOR, KEE S 698.9 PRURITUS NOS 01/13/2014 TIMO SEYMOUR MD Ot 845.00 SPRAIN OF ANKLE NOS 01/13/2014 TIMO SEYMOUR MD Ot 959.7 LOWER LEG INJURY NOS 01/13/2014 TIMO SEYMOUR MD Ot E000.8 OTHER EXTERNAL CAUSE STATUS 01/13/2014 TIMO SEYMOUR MD Ot E849.0 ACCIDENT IN HOME 01/13/2014 TIMO SEYMOUR MD Ot E888.9 FALL NOS 11/23/2014 GELLENDER DOLAZARO Ot 272.0 11/23/2014 GELLENDER DO, LAZARO Olson Ot 278.01 11/23/2014 GELLENDER DOLAZARO Ot 305.1 11/23/2014 GELLENDER DOLAZARO Ot 327.23 11/23/2014 GELLENDER DOLAZARO Ot 338.29 11/23/2014 GELLENDER DOLAZARO Ot 401.9 11/23/2014 GELLENDER DOLAZARO Ot 411.1 11/23/2014 GELLENDER DOLAZARO Ot 412 11/23/2014 GELLENDER DO, LAZARO Olson Ot 414.00 11/23/2014 [facility] DO, LAZARO Olson Ot 414.2 11/23/2014 [facility] DO, LAZARO Olson Ot 414.8 11/23/2014 [facility], LAZARO Olson Ot 493.20 11/23/2014 [facility], LAZARO Olson Ot 715.90 11/23/2014 [facility] DO, LAZARO Olson Ot 724.5 11/23/2014 [facility] DO, LAZARO Olson Ot V12.54 11/23/[facility] Ot V15.81 11/23/[facility] Olson Ot V45.02 11/23/[facility] Olson Ot V45.81 11/23/[facility] Ot V45.82 11/23/2014 [facility] DO, LAZARO Olson Ot V85.41 11/26/2014 [facility], LAZARO Olson Ot 272.0 PURE HYPERCHOLESTEROLEM 11/26/2014 [facility], LAZARO Olson Ot 278.01 MORBID OBESITY 11/26/2014 [facility], LAZARO Olson Ot 305.1 TOBACCO USE DISORDER 11/26/2014 [facility], LAZARO Olson Ot 327.23 OBSTRUCTIVE SLEEP APNEA (ADULT) (PEDIATR 11/26/2014 [facility], LAZARO Olson Ot 338.29 OTHER CHRONIC PAIN 11/26/2014 [facility], LAZARO Olson Ot 401.9 HYPERTENSION NOS 11/26/2014 [facility], LAZARO Olson Ot 411.1 INTERMED CORONARY SYND 11/26/2014 [facility], LAZARO Olson Ot 412 OLD MYOCARDIAL INFARCT 11/26/2014 [facility], LAZARO Olson Ot 414.00 CORON ATHEROSCLER NOS TYPE VESSEL, NATIV 11/26/2014 [facility], LAZARO Olson Ot 414.2 CHRONIC TOTAL OCCLUSION OF CORONARY SOFYA 11/26/2014 [facility], LAZARO Olson Ot 414.8 CHR ISCHEMIC HRT DIS NEC 11/26/2014 [facility], LAZARO Olson Ot 493.20 CHRONIC OBSTRUCTIVE ASTHMA, NOS 11/26/2014 [facility], LAZARO Olson Ot 715.90 OSTEOARTHROS NOS-UNSPEC 11/26/2014 [facility], LAZARO Olson Ot 724.5 BACKACHE NOS 11/26/2014 [facility], LAZARO Olson Ot V12.54 PERSONAL HX OF TIA, CEREBRAL INFARCTION 11/26/2014 GELLENDER DO, LAZARO Olson Ot V15.81 HX OF PAST NONCOMPLIANCE 11/26/2014 GELLENDER DO, LAZARO Olson Ot V45.02 AUTO IMPLANTABLE CARDIAC DEFIBRILLATOR I 11/26/2014 GELLENDER DO, LAZARO Olson Ot V45.81 AORTOCORONARY BYPASS 11/26/2014 GELLENDER DO, LAZARO Olson Ot V45.82 PERCUTANEOUS TRANSLUM CORON ANGIOPLASTY 11/26/2014 GELLENDER DO, LAZARO Olson Ot V85.41 BODY MASS INDEX 40.0-44.9, ADULT 11/30/2014 GELLENDER DO, LAZARO Olson Ot 272.0 11/30/2014 GELLENDER DO, LAZARO Olson Ot 278.01 11/30/2014 GELLENDER DO, LAZARO Olson Ot 305.1 11/30/2014 GELLENDER DO, LAZARO Olson Ot 327.23 11/30/2014 GELLENDER DO, LAZARO Olson Ot 338.29 11/30/2014 GELLENDER DO, LAZARO Olson Ot 401.9 11/30/2014 GELLENDER DO, LAZARO Olson Ot 411.1 11/30/2014 GELLENDER DO, LAZARO Olson Ot 412 11/30/2014 GELLENDER DO, LAZARO Olson Ot 414.00 11/30/2014 GELLENDER DO, LAZARO Olson Ot 414.2 11/30/2014 GELLENDER DO, LAZARO Olson Ot 414.8 11/30/2014 GELLENDER DO, LAZARO Olson Ot 493.20 11/30/2014 GELLENDER DO, LAZARO Olson Ot 715.90 11/30/2014 GELLENDER DO, LAZARO Olson Ot 724.5 11/30/2014 GELLENDER DO, LAZARO Olson Ot V12.54 11/30/2014 GELLENDER DO, LAZARO Olson Ot V15.81 11/30/2014 GELLENDER DO, LAZARO Olson Ot V45.02 11/30/2014 GELLENDER DO, LAZARO Olson Ot V45.81 11/30/2014 GELLENDER DO, LAZARO Olson Ot V45.82 11/30/2014 GELLENDER DO, LAZARO Olson Ot V85.41 06/14/2015 BRIGIDA SWANSON, COLETTE Li Ot K02.9 DENTAL CARIES, UNSPECIFIED 06/14/2015 BRIGIDA SWANSON, COLETTE Li Ot K08.8 OTHER SPECIFIED DISORDERS OF TEETH AND S 06/14/2015 JOS DIAS DAY PORTER Ot 401.9 06/14/2015 JOS DIAS DAY PORTER Ot 414.00 06/14/2015 JOS DIAS DAY PORTER Ot 429.9 06/14/2015 JOS DIAS DAY PORTER Ot V45.02 07/26/2015 KATHLEEN SWANSON FACC, ALI FACP CCDS Ot E66.01 MORBID (SEVERE) OBESITY DUE TO EXCESS CA 07/26/2015 KATHLEEN SWANSON FACC, ALI FACP CCDS Ot E78.5 HYPERLIPIDEMIA, UNSPECIFIED 07/26/2015 KATHLEEN SWANSON FACC, ALI FACP CCDS Ot F17.200 NICOTINE DEPENDENCE, UNSPECIFIED, UNCOMP 07/26/2015 KATHLEEN SWANSON FACC, ALFREDO FACP CCDS Ot I25.10 ATHSCL HEART DISEASE OF [place] CORONARY 07/26/2015 KATHLEEN SWANSON FACC, ALI FACP CCDS Ot I25.5 ISCHEMIC CARDIOMYOPATHY 07/26/2015 KATHLEEN SWANSON FACC, ALFREDO FACP CCDS Ot J44.9 CHRONIC OBSTRUCTIVE PULMONARY DISEASE, U 07/26/2015 KATHLEEN SWANSON FACC, ALI FACP CCDS Ot Z45.02 ENCNTR FOR ADJUST AND MGMT OF AUTOMATIC 07/26/2015 KATHLEEN SWANSON FACC, ALI FACP CCDS Ot Z68.41 BODY MASS INDEX (BMI) 40.0-44.9, ADULT 07/26/2015 KATHLEEN SWANSON FACC, ALI FACP CCDS Ot Z79.899 OTHER ROLL TABLE OPERATOR (CURRENT) DRUG THERAPY 07/26/2015 KATHLEEN SWANSON FACC, ALI FACP CCDS Ot Z91.19 PATIENT'S NONCOMPLIANCE W [facility] 07/26/2015 KATHLEEN SWANSON FACC, ALI FACP CCDS Ot Z98.61 CORONARY ANGIOPLASTY STATUS 11/04/2015 ALFREDO WANG MD, FACC FACP CCDS Ot 272.4 11/04/2015 ALFREDO WANG MD, FACC FACP CCDS Ot 278.01 11/04/2015 KATHLEEN SWANSON FACC ALI FACP CCDS Ot 327.23 11/04/2015 KATHLEEN SWANSON FACC ALI FACP CCDS Ot 414.00 11/04/2015 KATHLEEN SWANSON FACC, ALI FACP CCDS Ot 429.9 11/04/2015 KATHLEEN SWANSON FACC ALI FACP CCDS Ot 496 11/04/2015 KATHLEEN SWANSON FACC, ALFREDO PATTERSONP CCDS Ot V85.41 12/30/2015 KATHLEEN SWANSON FACC, ALFREDO FACP CCDS Ot 272.4 HYPERLIPIDEMIA NEC/NOS 12/30/2015 KATHLEEN SWANSON FACC, ALI FACP CCDS Ot 278.01 MORBID OBESITY 12/30/2015 KATHLEEN SWANSON FACC, ALI FACP CCDS Ot 327.23 OBSTRUCTIVE SLEEP APNEA (ADULT) (PEDIATR 12/30/2015 KATHLEEN SWANSON FACC, ALI FACP CCDS Ot 414.00 CORON ATHEROSCLER NOS TYPE VESSEL, NATIV 12/30/2015 KATHLEEN SWANSON FACC, ALI FACP CCDS Ot 429.9 HEART DISEASE NOS 12/30/2015 KATHLEEN SWANSON FACC, ALFREDO FACP CCDS Ot 496 CHR AIRWAY OBSTRUCT NEC 12/30/2015 KATHLEEN SWANSON FACC, ALI FACP CCDS Ot V85.41 BODY MASS INDEX 40.0-44.9, ADULT 03/22/2016 ARUN, JOS L DAY PORTER Ot R07.9 CHEST PAIN, UNSPECIFIED 04/19/2016 BAIMA, JOS L DAY PORTER Ot E78.4 OTHER HYPERLIPIDEMIA 04/19/2016 BAIMA, JOS L DAY PORTER Ot G47.33 OBSTRUCTIVE SLEEP APNEA (ADULT) (PEDIATR 04/19/2016 BAIMA, JOS L DAY PORTER Ot I25.10 ATHSCL HEART DISEASE OF [place] CORONARY 04/19/2016 BAIMA, JOS L DAY PORTER Ot I25.5 ISCHEMIC CARDIOMYOPATHY 04/19/2016 BAIMA, JOS L DAY PORTER Ot I65.23 OCCLUSION AND STENOSIS OF BILATERAL FISCHER 04/19/2016 IRINEOMA, JOS L DAY PORTER Ot J43.8 OTHER EMPHYSEMA 04/19/2016 BAIMA, JOS L DAY PORTER Ot R07.9 CHEST PAIN, UNSPECIFIED 04/19/2016 BAIMA, JOS L DAY PORTER Ot Z72.0 TOBACCO USE 05/01/2016 BAIMA, JOS L DAY PORTER Ot 401.9 HYPERTENSION NOS 05/01/2016 BAIMA, JOS L DAY PORTER Ot 414.00 CORON ATHEROSCLER NOS TYPE VESSEL, NATIV 05/01/2016 BAIMA, JOS L DAY PORTER Ot 429.9 HEART DISEASE NOS 05/01/2016 BAIMA, JOS L DAY PORTER Ot V45.02 AUTO IMPLANTABLE CARDIAC DEFIBRILLATOR I 05/01/2016 BAIMA, JOS L DAY PORTER Ot E78.4 OTHER HYPERLIPIDEMIA 05/01/2016 IRINOEJOS LIN DAY PORTER Ot G47.33 OBSTRUCTIVE SLEEP APNEA (ADULT) (PEDIATR 05/01/2016 JOS DIAS DAY PORTER Ot I25.10 ATHSCL HEART DISEASE OF [place] CORONARY 05/01/2016 IRINEOJOS LIN DAY PORTER Ot I25.5 ISCHEMIC CARDIOMYOPATHY 05/01/2016 IRINEOJOS LIN DAY PORTER Ot I65.23 OCCLUSION AND STENOSIS OF BILATERAL FISCHER 05/01/2016 IRINEODELIA JOS Rudd DAY PORTER Ot J43.8 OTHER EMPHYSEMA 05/01/2016 IRINEOJOS LIN DAY PORTER Ot R07.9 CHEST PAIN, UNSPECIFIED 05/01/2016 IRINEOJOS LIN DAY PORTER Ot Z72.0 TOBACCO USE 05/02/2016 KATHLEEN SWANSON FACC, ALI FACP CCDS Ot E78.5 HYPERLIPIDEMIA, UNSPECIFIED 05/02/2016 KATHLEEN SWANSON FACC, ALI FACP CCDS Ot G47.30 SLEEP APNEA, UNSPECIFIED 05/02/2016 KATHLEEN SWANSON FACC, ALI FACP CCDS Ot I25.119 ATHSCL HEART DISEASE OF [place] COR ART W 05/02/2016 KATHLEEN SWANSON FACC, ALI FACP CCDS Ot 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 05/02/2016 KATHLEEN SWANSON FACC, ALI FACP CCDS Ot I50.32 CHRONIC DIASTOLIC (CONGESTIVE) HEART JUD 05/02/2016 KATHLEEN SWANSON FACC, ALI FACP CCDS Ot J44.9 CHRONIC OBSTRUCTIVE PULMONARY DISEASE, U 05/02/2016 KATHLEEN SWANSON FACC, ALI FACP CCDS Ot T82.857A STENOSIS OF CARDIAC PROSTH DEV/GRFT, INI 05/02/2016 KATHLEEN SWANSON FACC, ALI FACP CCDS Ot Z72.0 TOBACCO USE 05/02/2016 KATHLEEN SWANSON FACC, ALI FACP CCDS Ot Z79.899 OTHER PENITENTIARY (CURRENT) DRUG THERAPY 05/02/2016 KATHLEEN SWANSON FACC, ALI FACP CCDS Ot Z91.19 PATIENT'S NONCOMPLIANCE W [facility] 05/02/2016 KATHLEEN SWANSON FACC, ALI FACP CCDS Ot Z95.810 PRESENCE OF AUTOMATIC (IMPLANTABLE) CARD 05/08/2016 JOS DIAS DAY PORTER Ot 401.9 HYPERTENSION NOS 05/08/2016 JOS DIAS DAY PORTER Ot 414.00 CORON ATHEROSCLER NOS TYPE VESSEL, NATIV 05/08/2016 JOS DIAS L DAY PORTER Ot 429.9 HEART DISEASE NOS 05/08/2016 JOS DIAS DAY PORTER Ot V45.02 AUTO IMPLANTABLE CARDIAC DEFIBRILLATOR I 05/08/2016 JOS DIAS DAY PORTER Ot E78.4 OTHER HYPERLIPIDEMIA 05/08/2016 BAIJOS LIN L DAY PORTER Ot G47.33 OBSTRUCTIVE SLEEP APNEA (ADULT) (PEDIATR 05/08/2016 JOS DIAS DAY PORTER Ot I25.10 ATHSCL HEART DISEASE OF [place] CORONARY 05/08/2016 BAIJOS LIN L DAY PORTER Ot I25.5 ISCHEMIC CARDIOMYOPATHY 05/08/2016 JOS DIAS DAY PORTER Ot I65.23 OCCLUSION AND STENOSIS OF BILATERAL [place]ER 05/08/2016 JOS DIAS DAY PORTER Ot J43.8 OTHER EMPHYSEMA 05/08/2016 JOS DIAS DAY PORTER Ot R07.9 CHEST PAIN, UNSPECIFIED 05/08/2016 IRINEOJOS LIN L DAY PORTER Ot Z72.0 TOBACCO USE 05/08/2016 VELMA LAZARO Wesley Ot M54.32 SCIATICA, LEFT SIDE 05/08/2016 KATHLEEN SWANSON FACC, ALI FACP CCDS Ot E78.5 HYPERLIPIDEMIA, UNSPECIFIED 05/08/2016 KATHLEEN SWANSON FACC, ALI FACP CCDS Ot G47.30 SLEEP APNEA, UNSPECIFIED 05/08/2016 KATHLEEN SWANSON FACC, ALI FACP CCDS Ot I25.119 ATHSCL HEART DISEASE OF [place] COR ART W 05/08/2016 KATHLEEN SWANSON FACC, ALI FACP CCDS Ot 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 05/08/2016 KATHLEEN SWANSON FACC, ALFREDO FACP CCDS Ot I50.32 CHRONIC DIASTOLIC (CONGESTIVE) HEART JUD 05/08/2016 KATHLEEN SWANSON FACC, ALI FACP CCDS Ot J44.9 CHRONIC OBSTRUCTIVE PULMONARY DISEASE, U 05/08/2016 KATHLEEN SWANSON FACC, ALI FACP CCDS Ot T82.857A STENOSIS OF CARDIAC PROSTH DEV/GRFT, INI 05/08/2016 KATHLEEN SWANSON FACC, ALI FACP CCDS Ot Z72.0 TOBACCO USE 05/08/2016 KATHLEEN SWANSON FACC, ALI FACP CCDS Ot Z79.899 OTHER ROLL TABLE OPERATOR (CURRENT) DRUG THERAPY 05/08/2016 KATHLEEN SWANSON FACC, ALI FACP CCDS Ot Z91.19 PATIENT'S NONCOMPLIANCE W [facility] 05/08/2016 KATHLEEN SWANSON FACC, ALI FACP CCDS Ot Z95.810 PRESENCE OF AUTOMATIC (IMPLANTABLE) CARD 05/10/2016 KATHLEEN SWANSON FACC ALI FACP CCDS Ot E78.5 HYPERLIPIDEMIA, UNSPECIFIED 05/10/2016 KATHLEEN SWANSON FACC, ALI FACP CCDS Ot G47.30 SLEEP APNEA, UNSPECIFIED 05/10/2016 KATHLEEN SWANSON FACC, ALI FACP CCDS Ot I25.119 ATHSCL HEART DISEASE OF [place] COR ART W 05/10/2016 KATHLEEN SWANSON FACC ALI FACP CCDS Ot 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 05/10/2016 KATHLEEN SWANSON FACC, ALI FACP CCDS Ot I50.32 CHRONIC DIASTOLIC (CONGESTIVE) HEART JUD 05/10/2016 KATHLEEN SWANSON FACC, ALFREDO FACP CCDS Ot J44.9 CHRONIC OBSTRUCTIVE PULMONARY DISEASE, U 05/10/2016 KATHLEEN SWANSON FACC, ALI FACP CCDS Ot T82.857A STENOSIS OF CARDIAC PROSTH DEV/GRFT, INI 05/10/2016 KATHLEEN SWANSON FACC, ALI FACP CCDS Ot Z72.0 TOBACCO USE 05/10/2016 KATHLEEN SWANSON FACC, ALI FACP CCDS Ot Z79.899 OTHER ROLL TABLE OPERATOR (CURRENT) DRUG THERAPY 05/10/2016 KATHLEEN SWANSON FACC, ALI FACP CCDS Ot Z91.19 PATIENT'S NONCOMPLIANCE W [facility] 05/10/2016 KATHLEEN SWANSON FACC, ALI FACP CCDS Ot Z95.810 PRESENCE OF AUTOMATIC (IMPLANTABLE) CARD 05/11/2016 ALFREDO WANG MD, FACC FACP CCDS Ot E78.5 HYPERLIPIDEMIA, UNSPECIFIED 05/11/2016 KATHLEEN SWANSON FACC, ALI FACP CCDS Ot G47.30 SLEEP APNEA, UNSPECIFIED 05/11/2016 KATHLEEN SWANSON FACC, ALI FACP CCDS Ot I25.119 ATHSCL HEART DISEASE OF [place] COR ART W 05/11/2016 KATHLEEN SWANSON FACC, ALI FACP CCDS Ot 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 05/11/2016 KATHLEEN SWANSON FACC, ALFREDO PATTERSONP CCDS Ot I50.32 CHRONIC DIASTOLIC (CONGESTIVE) HEART JUD 05/11/2016 KATHLEEN SWANSON FACC, ALFREDO FACP CCDS Ot J44.9 CHRONIC OBSTRUCTIVE PULMONARY DISEASE, U 05/11/2016 KATHLEEN SWANSON FACC, ALFREDO FACP CCDS Ot T82.857A STENOSIS OF CARDIAC PROSTH DEV/GRFT, INI 05/11/2016 KATHLEEN SWANSON FACC, ALFREDO FACP CCDS Ot Z72.0 TOBACCO USE 05/11/2016 KATHLEEN SWANSON FACC, ALFREDO FACP CCDS Ot Z79.899 OTHER ROLL TABLE OPERATOR (CURRENT) DRUG THERAPY 05/11/2016 KATHLEEN SWANSON FACC, ALFREDO PATTERSONP CCDS Ot Z91.19 PATIENT'S NONCOMPLIANCE W [facility] 05/11/2016 ALFREDO WANG MD, FACC FACP CCDS Ot Z95.810 PRESENCE OF AUTOMATIC (IMPLANTABLE) CARD 05/25/2016 VELMA SANCHEZ, LAZARO Olson Ot M54.32 SCIATICA, LEFT SIDE 06/14/2016 VELMA SANCHEZ LAZARO A Ot M54.32 SCIATICA, LEFT SIDE 07/04/2016 GELLENDER DO, LAZARO A Ot M54.32 SCIATICA, LEFT SIDE 07/14/2016 ALLYN BIRDP Ot I10 ESSENTIAL (PRIMARY) HYPERTENSION 07/14/2016 ALLYN BIRD DAY PORTER Ot I25.10 ATHSCL HEART DISEASE OF [place] CORONARY 07/14/2016 ALLYN BIRD DAY PORTER Ot J44.9 CHRONIC OBSTRUCTIVE PULMONARY DISEASE, U 07/14/2016 ALLYN BIRD DAY PORTER Ot M47.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, DIONTE 07/14/2016 ALLYN BIRD DAY PORTER Ot M48.06 SPINAL STENOSIS, LUMBAR REGION 07/14/2016 ALLYN BIRD DAY PORTER Ot M54.41 LUMBAGO WITH SCIATICA, RIGHT SIDE 07/14/2016 ALLYN BIRD DAY PORTER Ot Z79.02 PENITENTIARY (CURRENT) USE OF ANTITHROMBOTI 07/14/2016 ALLYN BIRDP Ot Z79.82 PENITENTIARY (CURRENT) USE OF ASPIRIN 07/14/2016 ALLYN BIRDP Ot Z79.899 OTHER ROLL TABLE OPERATOR (CURRENT) DRUG THERAPY 07/14/2016 MARGE, ALLYN DAY PORTER Ot Z95.0 PRESENCE OF CARDIAC PACEMAKER 07/14/2016 MARGE, ALLYN DAY PORTER Ot Z95.5 PRESENCE OF CORONARY ANGIOPLASTY IMPLANT 07/16/2016 MARGE, ALLYN DAY PORTER Ot I10 ESSENTIAL (PRIMARY) HYPERTENSION 07/16/2016 MARGE, ALLYN DAY PORTER Ot I25.10 ATHSCL HEART DISEASE OF [place] CORONARY 07/16/2016 MARGE, ALLYN DAY PORTER Ot J44.9 CHRONIC OBSTRUCTIVE PULMONARY DISEASE, U 07/16/2016 MARGE ALLYN DAY PORTER Ot M47.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, DIONTE 07/16/2016 MARGE, ALLYN DAY PORTER Ot M48.06 SPINAL STENOSIS, LUMBAR REGION 07/16/2016 MARGE, ALLYN DAY PORTER Ot M54.41 LUMBAGO WITH SCIATICA, RIGHT SIDE 07/16/2016 MARGE ALLYN DAY PORTER Ot Z79.02 PENITENTIARY (CURRENT) USE OF ANTITHROMBOTI 07/16/2016 MARGE, ALLYN DAY PORTER Ot Z79.82 PENITENTIARY (CURRENT) USE OF ASPIRIN 07/16/2016 MARGE, ALLYN DAY PORTER Ot Z79.899 OTHER ROLL TABLE OPERATOR (CURRENT) DRUG THERAPY 07/16/2016 MARGE ALLYN DAY PORTER Ot Z95.0 PRESENCE OF CARDIAC PACEMAKER 07/16/2016 MARGE, ALLYN DAY PORTER Ot Z95.5 PRESENCE OF CORONARY ANGIOPLASTY IMPLANT 07/21/2016 MARGE ALLYN DAY PORTER Ot I10 ESSENTIAL (PRIMARY) HYPERTENSION 07/21/2016 MARGE ALLYN DAY PORTER Ot I25.10 ATHSCL HEART DISEASE OF [place] CORONARY 07/21/2016 MARGE ALLYN DAY PORTER Ot J44.9 CHRONIC OBSTRUCTIVE PULMONARY DISEASE, U 07/21/2016 MARGE ALLYN DAY PORTER Ot M47.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, DIONTE 07/21/2016 MARGE ALLYN DAY PORTER Ot M48.06 SPINAL STENOSIS, LUMBAR REGION 07/21/2016 MARGE, ALLYN DAY PORTER Ot M54.41 LUMBAGO WITH SCIATICA, RIGHT SIDE 07/21/2016 MARGE, ALLYN DAY PORTER Ot Z79.02 ROLL TABLE OPERATOR (CURRENT) USE OF ANTITHROMBOTI 07/21/2016 MARGE, ALLYN DAY PORTER Ot Z79.82 PENITENTIARY (CURRENT) USE OF ASPIRIN 07/21/2016 MARGE, ALLYN DAY PORTER Ot Z79.899 OTHER ROLL TABLE OPERATOR (CURRENT) DRUG THERAPY 07/21/2016 ALLYN BIRD DAY PORTER Ot Z95.0 PRESENCE OF CARDIAC PACEMAKER 07/21/2016 MARGEALLYN Powell DAY PORTER Ot Z95.5 PRESENCE OF CORONARY ANGIOPLASTY IMPLANT 12/25/2016 KATHLEEN SWANSON FACC, ALI FACP CCDS Ot I25.10 ATHSCL HEART DISEASE OF [place] CORONARY 12/26/2016 KATHLEEN SWANSON FACC, ALI FACP CCDS Ot E66.09 OTHER OBESITY DUE TO EXCESS CALORIES 12/26/2016 KATHLEEN SWANSON FACC, ALI FACP CCDS Ot E78.4 OTHER HYPERLIPIDEMIA 12/26/2016 KATHLEEN SWANSON FACC, ALI FACP CCDS Ot G47.33 OBSTRUCTIVE SLEEP APNEA (ADULT) (PEDIATR 12/26/2016 KATHLEEN SWANSON FACC, ALI FACP CCDS Ot G89.4 CHRONIC PAIN SYNDROME 12/26/2016 KATHLEEN PATTERSONC, ALI FACP CCDS Ot I25.10 ATHSCL HEART DISEASE OF [place] CORONARY 12/26/2016 KATHLEEN SWANSON FACC, ALI FACP CCDS Ot I25.5 ISCHEMIC CARDIOMYOPATHY 12/26/2016 KATHLEEN SWANSON FACC, ALI FACP CCDS Ot I65.23 OCCLUSION AND STENOSIS OF BILATERAL [place] 12/26/2016 KATHLEEN SWANSON FACC, ALI FACP CCDS Ot J43.8 OTHER EMPHYSEMA 12/26/2016 KATHLEEN SWANSON FACC, ALI FACP CCDS Ot Z72.0 TOBACCO USE 01/21/2017 KATHLEEN SWANSON FACC, ALI FACP CCDS Ot E66.09 OTHER OBESITY DUE TO EXCESS CALORIES 01/21/2017 KATHLEEN SWANSON FACC, ALI FACP CCDS Ot E78.4 OTHER HYPERLIPIDEMIA 01/21/2017 KATHLEEN SWANSON FACC, ALI FACP CCDS Ot G47.33 OBSTRUCTIVE SLEEP APNEA (ADULT) (PEDIATR 01/21/2017 KATHLEEN SWANSON FACC, ALI FACP CCDS Ot G89.4 CHRONIC PAIN SYNDROME 01/21/2017 KATHLEEN SWANSON FACC, ALI FACP CCDS Ot I25.10 ATHSCL HEART DISEASE OF [place] CORONARY 01/21/2017 KATHLEEN PATTERSONC, ALI FACP CCDS Ot I25.5 ISCHEMIC CARDIOMYOPATHY 01/21/2017 KATHLEEN PATTERSONC, ALI FACP CCDS Ot I65.23 OCCLUSION AND STENOSIS OF BILATERAL [place]CH[place] 01/21/2017 KATHLEEN SWANSON FACC, ALI FACP CCDS Ot J43.8 OTHER EMPHYSEMA 01/21/2017 KATHLEEN SWANSON FACC, ALI FACP CCDS Ot Z72.0 TOBACCO USE 01/21/2017 LAZARO CARREON DO Ot M50.321 OTHER CERVICAL DISC DEGENERATION AT C4-C 01/23/2017 KATHLEEN SWANSON FACC, ALI FACP CCDS Ot E78.5 HYPERLIPIDEMIA, UNSPECIFIED 01/23/2017 KATHLEEN SWANSON FACC, ALI FACP CCDS Ot G47.30 SLEEP APNEA, UNSPECIFIED 01/23/2017 KATHLEEN SWANSON FACC, ALI FACP CCDS Ot I25.110 ATHSCL HEART DISEASE OF [place] COR ART W 01/23/2017 KATHLEEN SWANSON FACC, ALI FACP CCDS Ot J44.9 CHRONIC OBSTRUCTIVE PULMONARY DISEASE, U 01/23/2017 KATHLEEN SWANSON FACC, ALI FACP CCDS Ot T82.857A STENOSIS OF OTHER CARDIAC PROSTH DEV/GRF 01/23/2017 KATHLEEN SWANSON FACC, ALI FACP CCDS Ot Z72.0 TOBACCO USE 01/23/2017 KATHLEEN SWANSON FACC, ALI FACP CCDS Ot Z79.899 OTHER ROLL TABLE OPERATOR (CURRENT) DRUG THERAPY 01/23/2017 KATHLEEN SWANSON FACC ALI FACP CCDS Ot Z91.19 PATIENT'S NONCOMPLIANCE W [facility] 01/23/2017 KATHLEEN SWANSON FACC ALI FACP CCDS Ot Z95.1 PRESENCE OF AORTOCORONARY BYPASS GRAFT 01/23/2017 KATHLEEN SWANSON FACC, ALI FACP CCDS Ot Z95.810 PRESENCE OF AUTOMATIC (IMPLANTABLE) CARD Procedures Code Description Performed By Performed On G0008 FLU ADMINISTRATION ( MEDICARE ONLY) 06/24/2012 Q2038 FLUZONE (MEDICARE OFFICE VISIT ONLY) 06/24/2012 15709 EKG, TRACING (IN-HOUSE) 06/27/2012 86786 OXIMETRY - OVERNIGHT 04/15/2013 44144 PULMONARY FUNCTION TEST (IN- HOUSE) 04/17/2013 98754 RESPIRATORY FLOW VOLUME LOOP 04/17/2013 03795 PULMONARY EDUCATION 04/17/2013 G0437 TOBACCO-USE CLOUD AUTOMATION TESTER>10MIN 04/17/2013 49219 OXIMETRY - OVERNIGHT 04/29/2013 87089 SLEEP STUDY 04/29/2013 46329 OXIMETRY - OVERNIGHT 07/01/2013 24485 URINE DRUG SCREEN (IN-HOUSE ) 11/10/2013 54668 GLUCOSE FINGER STICK 11/10/2013 60509 A1C (IN-HOUSE) 11/10/2013 91428 AMERITOX 03/22/2014 00.47 11/25/2014 00.66 11/25/2014 36.07 11/25/2014 37.22 11/25/2014 88.49 11/25/2014 88.53 11/25/2014 88.56 11/25/2014 Results Test Result Range Automated blood complete blood count (hemogram) panel - 05/01/16 07:42 Blood leukocytes automated count (number/volume) 6.7 10*3/uL 4.3-11.0 Blood erythrocytes automated count (number/volume) 4.40 10*6/uL 4.35-5.85 Venous blood hemoglobin measurement (mass/volume) 13.7 g/dL 13.3-17.7 Blood hematocrit (volume fraction) 39 % 40-54 Automated erythrocyte mean corpuscular volume 89 [foz_us] 80-99 Automated erythrocyte mean corpuscular hemoglobin (mass per erythrocyte) 31 pg 25-34 Automated erythrocyte mean corpuscular hemoglobin concentration measurement ( mass/volume) 35 g/dL 32-36 Automated erythrocyte distribution width ratio 12.6 % 10.0-14.5 Automated blood platelet count (count/volume) 213 10*3/uL 130-400 Automated blood platelet mean volume measurement 11.0 [foz_us] 7.4-10.4 PT panel in platelet poor plasma by coagulation assay - 05/01/16 07:42 Prothrombin time (PT) in platelet poor plasma by coagulation assay 12.6 s 12.2-14.7 INR in platelet poor plasma or blood by coagulation assay 1.0 0.8-1.4 Activated partial thromboplastin time (aPTT) in platelet poor plasma bycoagulation assay - 05/01/16 07:42 Activated partial thromboplastin time (aPTT) in platelet poor plasma bycoagulation assay 29 s 24-35 Comprehensive metabolic panel - 05/01/16 07:42 Serum or plasma sodium measurement (moles/volume) 136 mmol/L 135-145 Serum or plasma potassium measurement (moles/volume) 4.1 mmol/L 3.6-5.0 Serum or plasma chloride measurement (moles/volume) 102 mmol/L 98-107 Carbon dioxide 23 mmol/L 21-32 Serum or plasma anion gap determination (moles/volume) 11 mmol/L 5-14 Serum or plasma urea nitrogen measurement (mass/volume) 11 mg/dL 7-18 Serum or plasma creatinine measurement (mass/volume) 0.78 mg/dL 0.60-1.30 Serum or plasma urea nitrogen/creatinine mass ratio 14 NRG Serum or plasma creatinine measurement with calculation of estimated glomerular filtration rate > NRG Serum or plasma glucose measurement (mass/volume) 112 mg/dL 70-105 Serum or plasma calcium measurement (mass/volume) 9.3 mg/dL 8.5-10.1 Serum or plasma total bilirubin measurement (mass/volume) 0.3 mg/dL 0.1-1.0 Serum or plasma alkaline phosphatase measurement (enzymatic activity/volume) 66 U/L 40-136 Serum or plasma aspartate aminotransferase measurement (enzymatic activity/ volume) 24 U/L 5-34 Serum or plasma alanine aminotransferase measurement (enzymatic activity/volume ) 24 U/L 0-55 Serum or plasma protein measurement (mass/volume) 6.9 g/dL 6.4-8.2 Serum or plasma albumin measurement (mass/volume) 4.1 g/dL 3.2-4.5 Lipid 1996 panel - 05/01/16 07:42 Serum or plasma triglyceride measurement (mass/volume) 384 mg/dL <150 Serum or plasma cholesterol measurement (mass/volume) 200 mg/dL < 200 Serum or plasma cholesterol in HDL measurement (mass/volume) 25 mg/ dL 40-60 Cholesterol in LDL [mass/volume] in serum or plasma by direct assay 116 mg/dL 1-129 Serum or plasma cholesterol in VLDL measurement (mass/volume) 77 mg/ dL 5-40 Methicillin resistant Staphylococcus aureus (MRSA) screening culture - 07:42 Methicillin resistant Staphylococcus aureus (MRSA) screening culture NEG NRG Automated blood complete blood count (hemogram) panel - 05/02/16 04:55 Blood leukocytes automated count (number/volume) 7.3 10*3/uL 4.3-11.0 Blood erythrocytes automated count (number/volume) 4.31 10*6/uL 4.35-5.85 Venous blood hemoglobin measurement (mass/volume) 13.1 g/dL 13.3-17.7 Blood hematocrit (volume fraction) 38 % 40-54 Automated erythrocyte mean corpuscular volume 89 [foz_us] 80-99 Automated erythrocyte mean corpuscular hemoglobin (mass per erythrocyte) 30 pg 25-34 Automated erythrocyte mean corpuscular hemoglobin concentration measurement ( mass/volume) 34 g/dL 32-36 Automated erythrocyte distribution width ratio 12.6 % 10.0-14.5 Automated blood platelet count (count/volume) 205 10*3/uL 130-400 Automated blood platelet mean volume measurement 11.0 [foz_us] 7.4-10.4 Whole blood basic metabolic panel - 05/02/16 04:55 Serum or plasma sodium measurement (moles/volume) 135 mmol/L 135-145 Serum or plasma potassium measurement (moles/volume) 4.4 mmol/L 3.6-5.0 Serum or plasma chloride measurement (moles/volume) 102 mmol/L 98-107 Carbon dioxide 22 mmol/L 21-32 Serum or plasma anion gap determination (moles/volume) 11 mmol/L 5-14 Serum or plasma urea nitrogen measurement (mass/volume) 11 mg/dL 7-18 Serum or plasma creatinine measurement (mass/volume) 0.81 mg/dL 0.60-1.30 Serum or plasma urea nitrogen/creatinine mass ratio 14 NRG Serum or plasma creatinine measurement with calculation of estimated glomerular filtration rate > NRG Serum or plasma glucose measurement (mass/volume) 114 mg/dL 70-105 Serum or plasma calcium measurement (mass/volume) 8.9 mg/dL 8.5-10.1 Complete urinalysis with reflex to culture - 07/14/16 15:20 Urine color determination YELLOW NRG Urine clarity determination CLEAR NRG Urine pH measurement by test strip 6.5 5-9 Specific gravity of urine by test strip 1.005 1.016- 1.022 Urine protein assay by test strip, semi-quantitative NEGATIVE NEGATIVE Urine glucose detection by automated test strip NEGATIVE NEGATIVE Erythrocytes detection in urine sediment by light microscopy NEGATIVE NEGATIVE Urine ketones detection by automated test strip NEGATIVE NEGATIVE Urine nitrite detection by test strip NEGATIVE NEGATIVE Urine total bilirubin detection by test strip NEGATIVE NEGATIVE Urine urobilinogen measurement by automated test strip (mass/volume) NORMAL NORMAL Urine leukocyte esterase detection by dipstick NEGATIVE NEGATIVE Automated urine sediment erythrocyte count by microscopy (number/high power field) RARE NRG Automated urine sediment leukocyte count by microscopy (number/high power field ) NONE NRG Bacteria detection in urine sediment by light microscopy NEGATIVE NRG Squamous epithelial cells detection in urine sediment by light microscopy NONE NRG Crystals detection in urine sediment by light microscopy NONE NRG Casts detection in urine sediment by light microscopy NONE NRG Mucus detection in urine sediment by light microscopy NEGATIVE NRG Complete urinalysis with reflex to culture NO NRG Automated blood complete blood count (hemogram) panel - 01/22/17 10:00 Blood leukocytes automated count (number/volume) 6.2 10*3/uL 4.3-11.0 Blood erythrocytes automated count (number/volume) 4.64 10*6/uL 4.35-5.85 Venous blood hemoglobin measurement (mass/volume) 14.0 g/dL 13.3-17.7 Blood hematocrit (volume fraction) 41 % 40-54 Automated erythrocyte mean corpuscular volume 89 [foz_us] 80-99 Automated erythrocyte mean corpuscular hemoglobin (mass per erythrocyte) 30 pg 25-34 Automated erythrocyte mean corpuscular hemoglobin concentration measurement ( mass/volume) 34 g/dL 32-36 Automated erythrocyte distribution width ratio 13.3 % 10.0-14.5 Automated blood platelet count (count/volume) 192 10*3/uL 130-400 Automated blood platelet mean volume measurement 11.0 [foz_us] 7.4-10.4 Comprehensive metabolic panel - 01/22/17 10:00 Serum or plasma sodium measurement (moles/volume) 139 mmol/L 135-145 Serum or plasma potassium measurement (moles/volume) 4.5 mmol/L 3.6-5.0 Serum or plasma chloride measurement (moles/volume) 106 mmol/L 98-107 Carbon dioxide 26 mmol/L 21-32 Serum or plasma anion gap determination (moles/volume) 7 mmol/L 5-14 Serum or plasma urea nitrogen measurement (mass/volume) 11 mg/dL 7-18 Serum or plasma creatinine measurement (mass/volume) 0.82 mg/dL 0.60-1.30 Serum or plasma urea nitrogen/creatinine mass ratio 13 NRG Serum or plasma creatinine measurement with calculation of estimated glomerular filtration rate > NRG Serum or plasma glucose measurement (mass/volume) 100 mg/dL 70-105 Serum or plasma calcium measurement (mass/volume) 9.3 mg/dL 8.5-10.1 Serum or plasma total bilirubin measurement (mass/volume) 0.4 mg/dL 0.1-1.0 Serum or plasma alkaline phosphatase measurement (enzymatic activity/volume) 55 U/L 40-136 Serum or plasma aspartate aminotransferase measurement (enzymatic activity/ volume) 20 U/L 5-34 Serum or plasma alanine aminotransferase measurement (enzymatic activity/volume ) 23 U/L 0-55 Serum or plasma protein measurement (mass/volume) 7.1 g/dL 6.4-8.2 Serum or plasma albumin measurement (mass/volume) 4.1 g/dL 3.2-4.5 Lipid 1996 panel - 01/22/17 10:00 Serum or plasma triglyceride measurement (mass/volume) 242 mg/dL <150 Serum or plasma cholesterol measurement (mass/volume) 242 mg/dL < 200 Serum or plasma cholesterol in HDL measurement (mass/volume) 37 mg/ dL 40-60 Cholesterol in LDL [mass/volume] in serum or plasma by direct assay 148 mg/dL 1-129 Serum or plasma cholesterol in VLDL measurement (mass/volume) 48 mg/ dL 5-40 PT panel in platelet poor plasma by coagulation assay - 01/22/17 10:00 Prothrombin time (PT) in platelet poor plasma by coagulation assay 11.9 s 12.2-14.7 INR in platelet poor plasma or blood by coagulation assay 0.9 0.8-1.4 Activated partial thromboplastin time (aPTT) in platelet poor plasma bycoagulation assay - 01/22/17 10:00 Activated partial thromboplastin time (aPTT) in platelet poor plasma bycoagulation assay 25 s 24-35 Methicillin resistant Staphylococcus aureus (MRSA) screening culture - 10:00 Methicillin resistant Staphylococcus aureus (MRSA) screening culture NEG [facility] Automated blood complete blood count (hemogram) panel - 01/23/17 04:05 Blood leukocytes automated count (number/volume) 5.7 10*3/uL 4.3-11.0 Blood erythrocytes automated count (number/volume) 4.14 10*6/uL 4.35-5.85 Venous blood hemoglobin measurement (mass/volume) 12.4 g/dL 13.3-17.7 Blood hematocrit (volume fraction) 38 % 40-54 Automated erythrocyte mean corpuscular volume 91 [foz_us] 80-99 Automated erythrocyte mean corpuscular hemoglobin (mass per erythrocyte) 30 pg 25-34 Automated erythrocyte mean corpuscular hemoglobin concentration measurement ( mass/volume) 33 g/dL 32-36 Automated erythrocyte distribution width ratio 13.2 % 10.0-14.5 Automated blood platelet count (count/volume) 180 10*3/uL 130-400 Automated blood platelet mean volume measurement 10.5 [foz_us] 7.4-10.4 Whole blood basic metabolic panel - 01/23/17 04:05 Serum or plasma sodium measurement (moles/volume) 137 mmol/L 135-145 Serum or plasma potassium measurement (moles/volume) 3.9 mmol/L 3.6-5.0 Serum or plasma chloride measurement (moles/volume) 105 mmol/L 98-107 Carbon dioxide 21 mmol/L 21-32 Serum or plasma anion gap determination (moles/volume) 11 mmol/L 5-14 Serum or plasma urea nitrogen measurement (mass/volume) 13 mg/dL 7-18 Serum or plasma creatinine measurement (mass/volume) 0.82 mg/dL 0.60-1.30 Serum or plasma urea nitrogen/creatinine mass ratio 16 NRG Serum or plasma creatinine measurement with calculation of estimated glomerular filtration rate > NRG Serum or plasma glucose measurement (mass/volume) 140 mg/dL 70-105 Serum or plasma calcium measurement (mass/volume) 8.7 mg/dL 8.5-10.1 Encounters ACCT No. Visit Date/Time Discharge Status Pt. Type Provider Facility Loc./Unit Complaint [id number] 03/18/2014 10:46:00 03/18/2014 23:59:59 CLS Outpatient KEE MAYERS APRN [id number] 11/10/2013 13:57:00 11/10/2013 23:59:59 CLS Outpatient KEE MAYERS APRN [id number] 11/10/2013 13:57:00 11/10/2013 23:59:59 CLS Outpatient KEE MAYERS APRN [id number] 07/20/2013 10:46:00 07/20/2013 23:59:59 CLS Outpatient ANDIE HERNÁNDEZ DO [id number] 04/27/2013 08:29:00 04/27/2013 23:59:59 CLS Outpatient ZAFAR AVALOS MD [id number] 10/22/2012 12:29:00 10/22/2012 23:59:59 CLS Outpatient KEE MAYERS APRN [id number] 06/24/2012 12:56:00 06/24/2012 23:59:59 CLS Outpatient KEE MAYERS APRN [id number] 06/24/2012 12:56:00 06/24/2012 23:59:59 CLS Outpatient KEE MAYERS APRN [id number] 04/17/2013 14:07:00 Document Registration [id number] 06/14/2015 10:54:41 ACT Document Registration [id number] 01/22/2017 09:10:00 01/23/2017 11:00:00 DIS Outpatient KATHLEEN SWANSON FACC, ALFREDO HERNANDEZ CCDS [facility] CATH CHEST PAIN, CAD,ISCHEMIC CM,CARMEN [id number] 12/25/2016 08:09:00 12/25/2016 23:59:59 CLS Outpatient LAZARO CARREON DO [facility] RAD NECK PAIN RT SIDE [id number] 12/25/2016 08:04:00 12/25/2016 23:59:59 CLS Outpatient ALFREDO WANG MD, FACC, FACP CCDS [facility] CARD CAD,HLP [id number] 07/14/2016 14:02:00 07/14/2016 16:16:00 DIS Emergency ALLYN BIRD [facility] ER R LEG NUMBNESS [id number] 06/13/2016 12:05:00 06/13/2016 23:59:59 CLS Outpatient LAZARO CARREON DO [facility] RAD SCIATICA GETTING WORSE LT LEG [id number] 05/03/2016 10:04:00 05/03/2016 23:59:59 CLS Outpatient LAZARO CARREON DO [facility] RAD SCIATICA,NUMBNESS LEFT THIGH TINGLING [id number] 05/01/2016 07:12:00 05/02/2016 09:35:00 DIS Outpatient ALFREDO WANG MD, FACC, FACP CCDS [facility] CATH CHEST PAIN, CAD [id number] 03/22/2016 07:55:00 03/22/2016 23:59:59 CLS Outpatient JOS DIAS [facility] CARD CHEST PAIN, CAD [place] , COPD, CARDIOMYOPATHY [id number] 07/26/2015 12:22:00 07/26/2015 19:08:00 DIS Outpatient ALFREDO WANG MD, FACC, FACP CCDS [facility] ICD RODRIGUEZ, MYOPATHY [id number] 06/14/2015 00:32:00 06/14/2015 01:44:00 DIS Emergency COLETTE ALLRED MD [facility] ER DENTAL PAIN [id number] 11/23/2014 19:00:00 11/26/2014 11:30:00 DIS Outpatient LAZARO CARREON DO [facility] CATH CHEST PAIN; HTN; COPD [id number] 06/18/2014 09:27:00 06/18/2014 23:59:59 CLS Outpatient OJS DIAS [facility] CARD CAD,HLP,HX PACEMAKER [id number] 01/13/2014 10:08:00 01/13/2014 12:37:00 DIS Emergency TIMO SEYMOUR MD [facility] ER [id number] 12/31/2013 07:40:00 12/31/2013 23:59:59 CLS Outpatient ALFREDO WANG MD, FACC, FACP CCDS [facility] CARD [id number] 11/13/2013 07:37:00 11/13/2013 23:59:59 CLS Outpatient [id number] 06/26/2013 07:46:00 06/26/2013 23:59:59 CLS Outpatient [id number] 06/09/2013 20:44:00 06/10/2013 06:15:00 DIS Outpatient [id number] 2013 08:40:00 2013 10:07:00 DIS Emergency [id number] 04/22/2013 07:47:00 04/22/2013 23:59:59 CLS Outpatient
[2017-12-10 08:56] LABS: HEMOGLOBIN 13.1 G/DL (13.3-17.7); MEAN PLATELET VOLUME 10.6 FL (7.4-10.4); RED BLOOD COUNT 4.19 10^6/uL (4.35-5.85); RED CELL DISTRIBUTION WIDTH 13.5 % (10.0-14.5); WHITE BLOOD COUNT 5.9 10^3/uL (4.3-11.0)
[2017-12-10] MEDS ORDERED: NS IV 1000 ML 1,000 ML IV SCH ×2 (09:00→13:56)
[2017-12-10] MEDS ORDERED: RECEIVED CONTRAST (Hold Metformin) IV SCH (09:00)
[2017-12-10 09:06] LABS: PROTHROMBIN TIME PATIENT 12.8 SEC (12.2-14.7)
[2017-12-10] MEDS ORDERED: FURO40TA4 PO (09:10)
[2017-12-10] MEDS ORDERED: ATOR20TA66 PO (09:10)
[2017-12-10] MEDS ORDERED: CLOP75TA69 PO (09:10)
[2017-12-10] MEDS ORDERED: FLUT1DIS26 IH (09:10)
[2017-12-10] MEDS ORDERED: NF-VAL40T PO (09:10)
[2017-12-10] MEDS ORDERED: TRAM50TA2 PO (09:10)
[2017-12-10] MEDS ORDERED: ASPI-999 PO (09:10)
[2017-12-10] MEDS ORDERED: POTA10TA36 PO (09:12)
[2017-12-10 09:14] LABS: ALANINE AMINOTRANSFERASE 19 U/L (0-55); ALKALINE PHOSPHATASE 59 U/L (40-136); BILIRUBIN,TOTAL 0.4 MG/DL (0.1-1.0); BUN/CREATININE RATIO 14; CALCIUM 8.9 MG/DL (8.5-10.1); CARBON DIOXIDE 23 MMOL/L (21-32); CHLORIDE 105 MMOL/L (98-107); CHOLESTEROL 250 MG/DL (< 200); GFR ESTIMATED > 60; GLUCOSE 108 MG/DL (70-105); HDL CHOLESTEROL 39 MG/DL (40-60); POTASSIUM 4.3 MMOL/L (3.6-5.0); SODIUM 138 MMOL/L (135-145); TOTAL PROTEIN 6.6 GM/DL (6.4-8.2); TRIGLYCERIDES 181 MG/DL (<150); VLDL CHOLESTEROL 36 MG/DL (5-40)
[2017-12-10] MEDS ORDERED: BACL10TA PO (09:15)
[2017-12-10] MEDS ORDERED: GABA600T2 PO (09:15)
[2017-12-10] MEDS ORDERED: TIOT4MIS2 IH (09:16)
[2017-12-10] MEDS ORDERED: fentaNYL INJECTION 100 MCG/2 ML AMP ONE (09:31)
[2017-12-10] MEDS ORDERED: MIDAZOLAM 5 MG/5 ML (VERSED) VIAL ONE (09:31)
[2017-12-10] MEDS ORDERED: diphenhydrAMINE 50 MG/ML INJ (BENADRYL) ONE (09:31)
[2017-12-10] MEDS ORDERED: LIDOCAINE 1% INJ 50 ML (XYLOCAINE) VIAL ONE (09:35)
--- NOTE | 2017-12-10 09:35 | Cardiac Procedure Note-CS/ASA ---
Pre-Procedure Note Pre-Op Procedure Note H&P Reviewed The H&P was reviewed, patient examined and no changes noted. Date H&P Reviewed: Dec 10, 2017 Time H&P Reviewed: 09:35 Conscious Sedation Pre-Proced Time Reviewed: 09:35 ASA Class: 3 Airway Mallampati Classification: ([place] appropriate class) I. II. III, IV Lungs Heart ASA score ASA 1: a normal healthy patient ASA 2: a patient with a mild systemic disease (mid diabetes, controlled hypertension, obesity ASA 3: a patient with a severe systemic disease that limits activity (angina , COPD, prior Myocardial infarction) ASA 4: a patient with an incapacitating disease that is a constant threat to life (CHF, renal failure) ASA 5: a moribund patient not expected to survive 24 hrs. (ruptured aneurysm) ASA 6: a declared brain patient whose organs are being harvested. For emergent operations, add the letter E after the classification Grade 3 Sedation Plan: Analgesia, Amnesia, Plan communicated to team members, Discussed options with patient/fam, Discussed risks with patient/fam Note The patient is an appropriate candidate to undergo the planned procedure, sedation, and anesthesia. The patient immediately re-assessed prior to indication. ALFREDO WANG MD FACP FAC CCDS Dec 10, 2017 09:35
[2017-12-10] MEDS ORDERED: HEParin 1000 UNIT/ML (10ML VIAL) FOR BOLUS ONE (10:19)
[2017-12-10] MEDS ORDERED: NITRO DRIP 25000 MCG/D5W 250 ML IV ONE (10:19)
[2017-12-10] MEDS ORDERED: EPTIFIBATIDE BOLUS 20 ML IV ONE (10:26)
[2017-12-10] MEDS ORDERED: EPTIFIBATIDE BOLUS 10 ML IV ONE (10:30)
[2017-12-10] MEDS ORDERED: MIDAZOLAM 2 MG/2 ML (VERSED) VIAL ONE (10:48)
--- NOTE | 2017-12-10 12:15 | CARDIAC CATHETERIZATION ---
DATE OF SERVICE: 12/10/2017 CARDIAC CATHETERIZATION AND CORONARY INTERVENTION REPORT INDICATIONS FOR PROCEDURE: The patient is a 57-year-old man with known coronary artery disease, who has had multiple percutaneous coronary interventions and also has a history of left internal mammary artery graft to left anterior descending artery. He has lately been experiencing crescendo angina. Cardiac catheterization was carried out today after having obtained informed consent for cardiac catheterization and possible ad hoc coronary intervention. PROCEDURE: He was brought to the cardiac catheterization laboratory in a fasting state. Right groin was prepared and draped in the usual sterile fashion. A 1% lidocaine was used for local anesthesia. Modified Seldinger technique was used to advance a 5-[place]egalese sheath to the right femoral artery, 5-[place] JL4 catheter to the left coronary angiography, 5-[place] JR4 catheter for right coronary angiography, 5-[place]egalese pigtail catheter for left heart catheterization, left ventricular angiography. A 5-[place] PEPPER catheter was used for angiography of the left internal mammary artery graft and left anterior descending artery. PERCUTANEOUS INTERVENTION TO THE RAMUS INTERMEDIUS ARTERY AND TO THE LEFT CIRCUMFLEX ARTERY: Following completion of the diagnostic procedure, we carried out percutaneous intervention to the ramus intermedius artery, which had up to 95% in-stent and ostial stenosis. The left circumflex artery had approximately 70% in-stent restenosis. We exchanged the sheath over a wire for a 7-[place] sheath. We gave 7000 units of intravenous heparin. A double bolus of Integrilin was given. We advanced a choice extra support wire into the left circumflex artery. We advanced a BMW wire into the ramus intermedius artery. We advanced an Emerge 3.0 x 30 mm balloon to the ramus intermedius artery. We advanced an Emerge 4.0 x 20 mm balloon to the left circumflex artery. Kissing balloon angioplasty was carried out. This reduced the stenosis in both arteries to approximately 30%. The distal ramus intermedius artery has approximately 70% stenosis, but is of a small caliber at that site and not amenable to intervention. The patient tolerated the procedure well. Angioplasty equipment was removed. Angiography of the right femoral artery had been carried out through the sheath at the beginning of the procedure. At the end of the procedure, Mynx was used to achieve hemostasis. HEMODYNAMICS: Left ventricular end-diastolic pressure following coronary angiography was 19 mmHg. There is no significant pressure gradient on pullback across the aortic valve. Ascending aortic pressure was 150/73 with a mean of 98 mmHg. LEFT VENTRICULAR ANGIOGRAPHY: Left ventricular angiography was carried out in the right anterior oblique projection. Global left ventricular systolic function is mildly impaired. There is anterolateral and apical hypokinesis with left ventricular ejection fraction of 45% to 50%. There does not appear to be significant mitral regurgitation. CORONARY ANGIOGRAPHY: Coronary calcification is seen. Left main coronary artery does not exhibit significant obstructive disease. A stent is seen in the proximal and mid portion of the left anterior descending artery following which the left anterior descending artery is occluded. The left anterior descending artery has approximately 80% stenosis in its proximal portion. A ramus intermedius artery is jailed by a stent within the proximal left circumflex artery. The ramus intermedius artery itself is distended in its proximal and mid portions and there is also a 90% in-stent restenosis in the mid portion of the stented portion of the ramus intermedius. The left circumflex artery has approximately 70% in-stent restenosis. To these stenoses, kissing balloon angioplasty was carried out, which reduced the stenosis to approximately 30%. The distal ramus intermedius has 70% stenosis, but the vessel is of small caliber and not amenable to intervention. The right coronary artery is small and nondominant and has diffuse moderately severe disease. ANGIOGRAPHY OF THE LEFT INTERNAL RAMAMMARY ARTERY GRAFT: The left internal mammary artery graft to distal left anterior descending artery is widely patent. It has a good distal flow. The distal left anterior descending artery has up to 60% stenoses. CONCLUSIONS: 1. Coronary artery disease is consisting of 80% proximal stenosis of the left anterior descending artery and mid vessel occlusion of the left anterior descending artery. The distal left anterior descending artery is protected by a patent left internal mammary artery graft to the distal left anterior descending artery. A ramus intermedius artery is known to have overlapping stents (Promus 2.5 x 38 and 2.5 x 12) that was exhibiting up to 90% stenosis. The ostial ramus intermedius had 95% stenosis. The left circumflex artery is known to have a 4.0 x 24 mm stent, which was exhibiting 70% stenosis. To these stenoses in the ramus intermedius and in the left circumflex, kissing balloon angioplasty was carried out, which reduced the stenosis to approximately 30%. The distal ramus intermedius artery has 70% stenosis where the vessel is of a small caliber and not amenable to intervention. The right coronary artery is a small, nondominant and has diffuse moderately severe disease. 2. Moderately elevated left ventricular end-diastolic pressure. 3. Anterolateral and apical hypokinesis. 4. Mild impairment of global left ventricular systolic function with ejection fraction 45% to 50%. DISCUSSION AND RECOMMENDATIONS: He is being hospitalized for observation following today's procedure. Current regimen is being continued, including dual antiplatelet therapy. This risk factor modification has been advised. He has again been advised immediate and complete cessation of smoking. Job ID: [id number] DocumentID: [id number] Dictated Date: 12/10/2017 11:23:05 Community Relations Liaison Date: 12/10/2017 12:14:55 Dictated By: ALFREDO WANG MD, MA, FACP, FACC, MTDD
[2017-12-10] MEDS ORDERED: NITROGLYCERIN 0.4 MG SL TABS BTL 25'S SL PRN (14:00)
[2017-12-10] MEDS ORDERED: PATIENT MAY USE OWN MEDS, ALL PO SCH (14:00)
[2017-12-10] MEDS ORDERED: RX-TRAMADOL 50 MG (ULTRAM) TAB PPK#4 PO PRN (14:00)
[2017-12-10] MEDS ORDERED: BACLOFEN 10 MG (LIORESAL) TAB PO PRN (14:00)
[2017-12-10] MEDS ORDERED: FUROSEMIDE 40 MG (LASIX) TAB PO PRN (14:00)
[2017-12-10] MEDS ORDERED: NON-FORMULARY MEDICATION 1 EA EA (Potassium Chloride 10 MEQ) PO PRN (14:00)
[2017-12-10] MEDS ORDERED: KCL 10 MEQ TAB (MICRO K) PO PRN (14:15)
[2017-12-10] MEDS ORDERED: RT-ADVAIR HFA 115/21 MCG PER PUFF IH SCH (20:00)
[2017-12-10] MEDS ORDERED: GABAPENTIN 600 MG (NEURONTIN) TAB PO SCH (21:00)
[2017-12-10] MEDS ORDERED: NON-FORMULARY MEDICATION 1 EA EA (Fluticasone/Salmeterol (Advair 250-50 Diskus) 1 PUFF) IH SCH (21:00)
[2017-12-11] VITALS: BP 131/69
[2017-12-11 03:27] LABS: HEMOGLOBIN 12.8 G/DL (13.3-17.7); MEAN PLATELET VOLUME 10.4 FL (7.4-10.4); RED BLOOD COUNT 4.17 10^6/uL (4.35-5.85); RED CELL DISTRIBUTION WIDTH 13.7 % (10.0-14.5); WHITE BLOOD COUNT 5.9 10^3/uL (4.3-11.0)
[2017-12-11 03:45] LABS: BUN/CREATININE RATIO 16; CALCIUM 8.6 MG/DL (8.5-10.1); CARBON DIOXIDE 26 MMOL/L (21-32); CHLORIDE 106 MMOL/L (98-107); CREATININE SERUM 0.77 MG/DL (0.60-1.30); GFR ESTIMATED > 60; GLUCOSE 111 MG/DL (70-105); POTASSIUM 4.6 MMOL/L (3.6-5.0); SODIUM 139 MMOL/L (135-145)
[2017-12-11 04:00] VITALS: BP 128/79
--- NOTE | 2017-12-11 08:01 | Progress Note-Cardiology ---
Cardiology SOAP Progress Note Subjective: Up ambulating in the room. C/O some right groin tenderness. No c/o CP, palpitations, syncope or near syncope. Chronic shortness of breath which he feels is at its usual baseline. States he feels better. Objective: I&O/Vital Signs Vital Sign - Last 12Hours 12/11/17 12/11/17 12/11/17 12/11/17 00:00 01:00 04:00 07:00 Temp 98.0 98.5 Pulse 71 66 71 60 Resp 14 16 B/P (MAP) 131/69 (89) 128/79 (95) Pulse Ox 98 97 O2 Delivery Room Air Room Air 12/11/17 12/11/17 08:00 08:08 Temp 97.4 Pulse 75 Resp 11 B/P (MAP) 126/68 (87) Pulse Ox 95 95 O2 Delivery Room Air Room Air Intake and Output 12/11/17 00:00 Intake Total 400 ml Output Total 825 ml Balance -425 ml Weight (Pounds): 270 Weight (Ounces): 0.0 Weight (Calculated Kilograms): 122.268060 Side: right Groin site without hematoma: Yes Condition: DP/PT pulses palpable Constitutional: AAO x 3 Respiratory: chest expansion is symmetric, chest is bilaterally symmetric, rhonchi (exp), other (prolonged exp phase) Cardiovascular: regular rate-rhythm, No JVD, S1 and S2 Gastrointestional: No tender, audible bowel sounds Extremities: no lower extremity edema bilateral Neurologic/Psychiatric: grossly intact Skin: No rash, No ulcerations Results/Procedures: Labs Laboratory Tests 12/11/17 03:10: White Blood Count 5.9, Red Blood Count 4.17L, Hemoglobin 12.8L, Hematocrit 38L, Mean Corpuscular Volume 92, Mean Corpuscular Hemoglobin 31, Mean Corpuscular Hemoglobin Concent 34, Red Cell Distribution Width 13.7, Platelet Count 210, Mean Platelet Volume 10.4, Sodium Level 139, Potassium Level 4.6, Chloride Level 106, Carbon Dioxide Level 26, Anion Gap 7, Blood Urea Nitrogen 12, Creatinine 0.77, Estimat Glomerular Filtration Rate > 60, BUN/Creatinine Ratio 16, Glucose Level 111H, Calcium Level 8.6 Procedures S/P cardiac cath with successful intervention on 12-10-17 A/P: Assessment: CAD. Cardiac cath of December 10, 2017: Coronary artery disease is consisting of 80 % proximal stenosis of the left anterior descending artery and mid vessel occlusion of the left anterior descending artery. The distal left anterior descending artery is protected by a patent left internal mammary artery graft to the distal left anterior descending artery. A ramus intermedius artery is known to have overlapping stents (Promus 2.5 x 38 and 2.5 x 12) that were exhibiting up to 90% stenosis. The ostial ramus intermedius had 95% stenosis. The left circumflex artery is known to have a 4.0 x 24 mm stent, which was exhibiting 70% stenosis. To these stenoses in the ramus intermedius and in the left circumflex, kissing balloon angioplasty was carried out, which reduced the stenosis to approximately 30%. The distal ramus intermedius artery has 70% stenosis where the vessel is of a small caliber and not amenable to intervention. The right coronary artery is a small, nondominant and has diffuse moderately severe disease. Moderately elevated left ventricular end- diastolic pressure. Anterolateral and apical hypokinesis. Mild impairment of global left ventricular systolic function with ejection fraction 45% to 50%. MPI of December 2016 showed large apical infarction without significant ischemia; apical akinesis; cardiomegaly; LVEF 30% Impairment of global left ventricular systolic function with an ejection fraction of 37% on MPI of November 2014 and 45% on subsequent cardiac cath of . Abnormal ECG: ECG of 12/10/16 showed NSR with repol abn in anterolat leads, essentially unchanged on 12/04/17 On echo of 06/18/14 LVEF was 30-35%, distal septal and anterapical hypo/ akinesis and PASP 25 mmHg Status post defibrillator placement [place] [address] Reynaga at [facility]. Device was replaced on 07/26/15 after it had reached RODRIGUEZ. It is fucntioning normally on interrogation of Aug 2016 Chronic obstructive pulmonary disease. Reactive airway disease. Chronic tobaccoism. Diastolic dysfunction of the left ventricle. Chronic joint and back discomfort. Sleep apnea for which he's on CPAP therapy. History of mild intermittent liver enzyme elevation, likely related to alcohol use, no elevation on lab work of Jun 2014. This is followed by Dr Ryan Noncompliance with medications. Hyperlipidemia - PCP managing Mild carotid arterial disease on carotid u/s of 09/07/16 Plan: S/P cardiac cath with successful intervention Continue current medication regimen Risk factor modification reviewed Advised immediate and complete smoking cessation F/U in 2 weeks Physician Assessment Physician Assessment He states he feels much better. Denies cp or palp or syncope. Exertional shortness of breath at usual baseline Cor: reg Lungs: fair to good air entry Ext: no c/c/e. Mild to mod bruising at sites of access A&R * As documented in our note that I updated at the time of this exam (italics) and as noted below * I had a conversation with him and explained the finding of angio and interventions undertaken * I advised and discussed risk factor mod, including smoking cessation * I advised med compliance after discussing the rationale and pros and cons of meds * Outpt f/u is advised JOS DIAS MEMBERSHIP SECRETARY Dec 11, 2017 08:01 ALFREDO WANG MD FACP FAC CCDS Dec 11, 2017 09:09
[2017-12-11 08:08] VITALS: BP 126/68
--- NOTE | 2017-12-11 08:42 | Discharge Inst-Cardiology ---
Discharge Inst-Cardiac Discharge Medications Continued Medications: Aspirin (Aspirin) 81 Mg Tab.chew 81 MG PO DAILY, TAB Atorvastatin Calcium (Atorvastatin Calcium) 20 Mg Tablet 20 MG PO DAILY, TAB LAST FILLED #90 01-09-17 Baclofen (Baclofen) 10 Mg Tablet 10 MG PO TID PRN for MUSCLE SPASMS, TAB Clopidogrel Bisulfate (Plavix) 75 Mg Tablet 75 MG PO DAILY, TAB LAST FILLED #90 01-09-17 Fluticasone/Salmeterol (Advair 250-50 Diskus) 1 Each Blst.w.dev 1 PUFF IH BID Furosemide (Furosemide) 40 Mg Tablet 40 MG PO DAILY PRN for SWELLING, TAB LAST FILLED #90 02-12-17 Gabapentin (Gabapentin) 600 Mg Tablet 600 MG PO TID, TAB Nitroglycerin (Nitroglycerin) 0.4 Mg Tab.subl 0.4 MG SL UD PRN for CHEST PAIN, TAB 1 TABLET EVERY 5 MINUTES X 3 DOSES Potassium Chloride (Potassium Chloride) 10 Meq Tab.er.prt 10 MEQ PO DAILY PRN for WHEN TAKING FUROSEMIDE Tiotropium [place] (Spiriva Respimat 2.5MCG/ACTUATION) 4 Gm Mist.inhal 2 PUFF IH DAILY, INH LAST FILLED #8GM 08-30-17 Tramadol HCl (Tramadol HCl) 50 Mg Tablet 50 MG PO TID PRN for PAIN-MILD, TAB Valsartan (Diovan) 40 Mg Tab 40 MG PO DAILY, TAB LAST FILLED #90 01-25-17 Patient Instructions Patient Instructions: Please schedule follow up appt to see Dr. Gomes in 2 weeks JOS DIAS Dec 11, 2017 08:42
[2017-12-11] MEDS ORDERED: VALSARTAN 80 MG (DIOVAN) TAB PO SCH (09:00)
[2017-12-11] MEDS ORDERED: CLOPIDOGREL 75 MG (PLAVIX) TABLET PO SCH (09:00)
[2017-12-11] MEDS ORDERED: NON-FORMULARY MEDICATION 1 EA EA (Tiotropium Bromide (Spiriva Respimat 2.5MCG/ACTUATION) 2 IH SCH (09:00)
[2017-12-11] MEDS ORDERED: ASPIRIN 81 MG CHEW (CHILDREN'S ASA) PO SCH (09:00)
[2017-12-11] MEDS ORDERED: VALSARTAN 40 MG PO SCH (09:00)
[2017-12-11] MEDS ORDERED: ATORVASTATIN 20 MG (LIPITOR) TABLET PO SCH (09:00)
[2017-12-11 09:04] VITALS: BP 126/68
== END 2017-12-11 09:04 | disposition home or self-care (01) ==
LOC: CATH 08:14 → ICU 11:30 → CATH 12-11 09:04
PROVIDERS: ATTEND Internal Medicine Cardiovascular Disease
DX: I25.10 Atherosclerotic heart disease of native coronary artery without angina pectoris (principal); I25.5 Ischemic cardiomyopathy; F17.210 Nicotine dependence, cigarettes, uncomplicated; J45.909 Unspecified asthma, uncomplicated; J44.9 Chronic obstructive pulmonary disease, unspecified; E78.5 Hyperlipidemia, unspecified; G47.33 Obstructive sleep apnea (adult) (pediatric); R56.9 Unspecified convulsions; E66.01 Morbid (severe) obesity due to excess calories; Z68.41 Body mass index [BMI] 40.0-44.9, adult; Z79.02 Long term (current) use of antithrombotics/antiplatelets; Z79.82 Long term (current) use of aspirin; Z79.899 Other long term (current) drug therapy; Z95.5 Presence of coronary angioplasty implant and graft; Z95.810 Presence of automatic (implantable) cardiac defibrillator; Z91.14 Patient's other noncompliance with medication regimen
CPT/HCPCS: 36415; 80048; 80053; 80061; 85027; 85610; 85730; 87081; 93005; 93459

== ENCOUNTER 2018-03-19 12:17 | Emergency (ER) | payer MEDICARE ==
[~2018-03-19] VITALS: Ht 172.7 cm; Wt 122.5 kg
[~2018-03-19 12:17] MED LIST changes: +BACL10TA PO; +CLOP75TA69 PO; +GABA600T2 PO; -HEParin (CATH LAB) 2,000 ML IV ONE; +NF-VAL40T PO; -NS IV 1000 ML 1,000 ML ONE; +POTA10TA36 PO; +TIOT4MIS2 IH; -VALS40TA8 PO; +VALS40TA9 PO
[2018-03-19] MEDS ORDERED: methylPREDNISolone 125 MG (Solu-MEDROL) VIAL IVP ONE (14:00)
[2018-03-19] MEDS ORDERED: cefTRIAXone INJECTION 1,000 MG in NS (IVPB) 50 ML IV ONE (14:00)
[2018-03-19 14:01] LABS: BASOPHILS % (AUTO) 0 % (0-10); EOSINOPHILS # (AUTO) 0.3 10^3/uL (0.0-0.3); EOSINOPHILS % (AUTO) 3 % (0-10); HEMATOCRIT 41 % (40-54); HEMOGLOBIN 13.9 G/DL (13.3-17.7); LYMPHOCYTES # (AUTO) 1.8 X 10^3 (1.0-4.0); LYMPHOCYTES % (AUTO) 24 % (12-44); MEAN CORPUSCULAR HEMOGLOBIN 31 PG (25-34); MEAN CORPUSCULAR HGB CONC 34 G/DL (32-36); MEAN CORPUSCULAR VOLUME 90 FL (80-99); MEAN PLATELET VOLUME 10.5 FL (7.4-10.4); MONOCYTES # (AUTO) 0.5 X 10^3 (0.0-1.0); MONOCYTES % (AUTO) 7 % (0-12); NEUTROPHILS # (AUTO) 4.9 X 10^3 (1.8-7.8); NEUTROPHILS % (AUTO) 65 % (42-75); PLATELET COUNT 214 10^3/uL (130-400); RED CELL DISTRIBUTION WIDTH 13.2 % (10.0-14.5); WHITE BLOOD COUNT 7.5 10^3/uL (4.3-11.0)
[2018-03-19 14:29] LABS: ALANINE AMINOTRANSFERASE 30 U/L (0-55); ALBUMIN 4.4 GM/DL (3.2-4.5); ALKALINE PHOSPHATASE 72 U/L (40-136); AMYLASE 43 U/L (25-125); BILIRUBIN,TOTAL 0.6 MG/DL (0.1-1.0); BUN/CREATININE RATIO 8; CARBON DIOXIDE 23 MMOL/L (21-32); CHLORIDE 102 MMOL/L (98-107); CREATININE SERUM 0.84 MG/DL (0.60-1.30); GFR ESTIMATED > 60; GLUCOSE 104 MG/DL (70-105); POTASSIUM 4.4 MMOL/L (3.6-5.0); SODIUM 135 MMOL/L (135-145); TOTAL PROTEIN 7.5 GM/DL (6.4-8.2)
[2018-03-19] MEDS ORDERED: NS 100 ML (IVPB) BAG IV ONE (15:00)
[2018-03-19] MEDS ORDERED: IOHEXOL 350 MG/ML 100 ML (OMNIPAQUE 350) VIAL IV ONE (15:00)
--- NOTE | 2018-03-19 15:34 | Diagnostic Imaging Report ---
PROCEDURE: CT maxillofacial with contrast. TECHNIQUE: After intravenous administration of contrast, axial images were obtained through the face and reformatted into coronal and sagittal planes. INDICATION: Left-sided dental pain. FINDINGS: There is complete opacification of the left maxillary sinus. There is a large mucus retention cyst in the right maxillary sinus. There is very slight nasal septal bowing and deviation towards the right. The septum appears nonacute and the nasal bones are intact. The orbits are unremarkable. The anterior and posterior plascencia of the frontal sinus are intact. The left frontal sinus reveals slight 2 mm membrane thickening. There is mild membrane thickening involving the bilateral ethmoid air cells. There is trace membrane disease dependently in the sphenoid sinuses on the right. The mastoid air cells and middle ear cavities are clear. With IV contrast, no abnormal or suspicious enhancement is apparent. No cervical abscess. The parotid and submandibular glands appear unremarkable. The nasopharynx, oropharynx, and visualized hypopharynx appear nonacute. No bony destruction. No findings suggestive of CT evidence for acute osteomyelitis. IMPRESSION: There is no evidence for abscess or other fluid collection. No acute osseous pathology. Paranasal sinus disease distributed as described. Dictated by: Dictated on workstation # [id number]
[2018-03-19] MEDS ORDERED: LIDO15SO2 MM (15:53)
[2018-03-19] MEDS ORDERED: PRD20T PO (15:53)
--- NOTE | 2018-03-19 15:53 | ED EENT ---
History of Present Illness General Chief Complaint: Dental Problems/Pain Stated Complaint: ABCESS TOOTH Nursing Triage Note: ARRIVED VIA AMB TO ROOM 08 WITH COMPLAINTS OF DENTAL ABSCESS LEFT LOWER SIDE. STATES HE WENT TO DENTIST YESTERDAY WHO PUT HIM ON CLINDAMYCIN. Source: patient History of Present Illness Date Seen by Provider: Mar 19, 2018 Time Seen by Provider: 13:35 Initial Comments C/O DENTAL ABSCESS FOR A COUPLE OF DAYS STATES HE HAS HISTORY OF SAME STATES A FILLING FELL OUT A COUPLE OF MONTHS AGO--LEFT LOWER FIRST MOLAR WAS AT [facility] YESTERDAY FOR THIS PROBLEM. WAS GIVEN RX FOR CLINDAMYCIN AND A SHOT OF LIDOCAINE IN MOUTH. NO RX FOR PAIN MEDICATION STATES HE HAS HAD INCREASED PAIN AND SWELLING STATES HE HAS HAD SUBJECTIVE FEVER AND SWEATS TOOK 2 TRAMADOL TODAY WITHOUT RELIEF ( TAKES FOR CHRONIC BACK PAIN ) PCP: DR. CARREON DENTAL: [facility] TRANSITION ASSISTANT: DR. WANG Allergies and Home Medications Allergies Coded Allergies: Penicillins (Verified Allergy, Unknown, 01/14/06) ketorolac (Unverified Adverse Reaction, Unknown, 03/30/10) Home Medications Aspirin 81 Mg Tab.chew, 81 MG PO DAILY, (Reported) Atorvastatin Calcium 20 Mg Tablet, 20 MG PO DAILY, (Reported) LAST FILLED #90 5-3-17 Baclofen 10 Mg Tablet, 10 MG PO TID PRN for MUSCLE SPASMS, (Reported) Clopidogrel Bisulfate 75 Mg Tablet, 75 MG PO DAILY, (Reported) LAST FILLED #90 5-3-17 Fluticasone Propionate 9.9 Ml [place].susp, 2 SPRAYS NS DAILY Prescribed by: DESHAWN DING on 03/19/18 1555 Fluticasone/Salmeterol 1 Each Blst.w.dev, 1 PUFF IH BID, (Reported) Furosemide 40 Mg Tablet, 40 MG PO DAILY PRN for SWELLING, (Reported) LAST FILLED #90 6-6-17 Gabapentin 600 Mg Tablet, 600 MG PO TID, (Reported) Lactobacillus Acidophilus 1 Each Capsule, 2 EACH PO QID Prescribed by: DESHAWN DING on 03/19/18 1554 Lidocaine HCl 15 Ml Solution, 15 ML MM Q 1-2 HOURS Prescribed by: DESHAWN DING on 03/19/18 1553 Nitroglycerin 0.4 Mg Tab.subl, 0.4 MG SL UD PRN for CHEST PAIN, (Reported) 1 TABLET EVERY 5 MINUTES X 3 DOSES Potassium Chloride 10 Meq Tab.er.prt, 10 MEQ PO DAILY PRN for WHEN TAKING FUROSEMIDE, (Reported) Prednisone 20 Mg Tab, 40 MG PO DAILY Prescribed by: DESHAWN DING on 03/19/18 1553 Tiotropium [employer] 4 Gm Mist.inhal, 2 PUFF IH DAILY, (Reported) LAST FILLED #8GM 08-30-17 Tramadol HCl 50 Mg Tablet, 50 MG PO TID PRN for PAIN-MILD, (Reported) Valsartan 40 Mg Tab, 40 MG PO DAILY, (Reported) LAST FILLED #90 01-25-17 Patient Home Medication List Home Medication List Reviewed: Yes Review of Systems Constitutional: see HPI, diaphoresis, fever Eyes: No Symptoms Reported Ears: No Symptoms Reported Nose: no symptoms reported Mouth: see HPI, pain, swelling Throat: no symptoms reported Respiratory: no symptoms reported Cardiovascular: no symptoms reported Gastrointestinal: no symptoms reported Musculoskeletal: no symptoms reported Skin: no symptoms reported Neurological: No Symptoms Reported Hematologic/Lymphatic: No Symptoms Reported Immunological/Allergic: no symptoms reported Past Vcsbjfy-Sescgd-Dcbali Hx Patient Social History Alcohol Use: Occasionally Uses Alcohol Beverage of Choice: Beer Recreational Drug Use: No Smoking Status: Current Everyday Smoker Type Used: Cigars Recent Foreign Travel: No Contact w/Someone Who Travel: No Recent Infectious Disease Expo: No Recent Hopitalizations: No Immunizations Up To Date Tetanus Booster (TDap): Less than 5yrs Date of Pneumonia Vaccine: May 10, 2017 Date of Influenza Vaccine: Jun 25, 2015 Seasonal Allergies Seasonal Allergies: No Past Medical History Surgeries: Yes (CABG-1 VESSEL; STATES HE HAS TOO MANY STENTS TO COUNT; PACEMAKER/DEFIBRILLATOR; WISDOM TEETH REMOVED) Adenoidectomy, Cardiac, CABG, Coronary Stent, Defibrillator, Orthopedic, Pacemaker, Tonsillectomy Respiratory: Yes Asthma, COPD Cardiac: Yes (MULTIPLE TN'S; 1 VESSEL CABG. "TOO MANY STENTS TO COUNT" PER PT; PACEMAKER/DEFIBRILLATOR) Coronary Artery Disease, Heart Attack, High Cholesterol, Hypertension Neurological: Yes ("Minor stroke") Stroke Reproductive Disorders: No Gastrointestinal: No Musculoskeletal: Yes (CHRONIC KNEE PAIN) Arthritis, Chronic Back Pain Endocrine: No HEENT: Yes (WISDOM TEETH REMOVED; DENTAL ABSCESSES) Cancer: No Psychosocial: No Integumentary: No Blood Disorders: No Family Medical History Patient reports no known family medical history. No Pertinent Family Hx Physical Exam Vital Signs Height, Weight, BMI Height: 5'8.00" Weight: 270lbs.0.0oz.122.902632fb; 41.1 BMI Method:Stated General Appearance: no apparent distress Eyes: bilateral eye normal inspection, bilateral eye PERRL, bilateral eye EOMI Ears: bilateral ear auricle normal, bilateral ear canal normal, bilateral ear TM normal Nose: normal inspection Mouth/Throat: dental tenderness, mandibular swelling (ONLEFT), maxillary swelling (ON LEFT), trismus; No uvula swelling, No voice changes Neck: non-tender, full range of motion, supple, normal inspection Cardiovascular: regular rate, rhythm, no murmur Respiratory: normal breath sounds, no respiratory distress, no accessory muscle use Neurologic/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: 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, no motor/sensory deficits, alert, normal mood/affect, oriented x 3 Skin: normal color, warm/dry Progress/Results/Core Measures Results/Orders Lab Results My Orders Medications Given in ED Vital Signs/I&O Blood Pressure Mean: 139 Progress Progress Note : Progress Note DECREASED SWELLING AND DECREASED PAIN AT DISMISSAL Diagnostic Imaging Comments CT MAXILLOFACIALS--NO ABSCESS; LEFT MAXILLARY SINUS OPACIFIED, RIGHT MAXILLARY SINUS MUCOUS RETENTION CYST, CHRONIC SINUS DISEASE--PER RADIOLOGIST REPORT @ 1543 Reviewed: Reviewed by Me Departure Impression Primary Impression: Dental infection Additional Impression: Sinusitis Disposition: 01 HOME, SELF-CARE Condition: Stable Departure-Patient Inst. Referrals: LAZARO CARREON DO (PCP/Family) Primary Care Physician Patient Instructions: Dental Pain (DC), Tooth Abscess (DC) Add. Discharge Instructions: FOLLOW UP WITH DENTIST IN 3-4 DAYS FOR FURTHER CARE FREQUENT SALT WATER SWISHES TAKE CLINDAMYCIN 300 MG 4 TIMES A DAY FOR INFECTION CONTINUE TRAMADOL EVERY 4 HOURS NEEDED FOR PAIN All discharge instructions reviewed with patient and/or family. Voiced understanding. Scripts Fluticasone Propionate (Flonase Allergy Relief) 9.9 Ml [place].susp 2 SPRAYS NS DAILY, #1 SPRAY Prov: DESHAWN DING DO 03/19/18 Lactobacillus Acidophilus (Acidophilus) 1 Each Capsule 2 EACH PO QID, #80 CAP Prov: DESHAWN DING DO 03/19/18 Prednisone (Prednisone) 20 Mg Tab 40 MG PO DAILY, #6 TAB Prov: DESHAWN DING DO 03/19/18 Lidocaine HCl (Lidocaine HCl Viscous) 15 Ml Solution 15 ML MM Q 1-2 HOURS for Pain, #100 ML Prov: DESHAWN DING DO 03/19/18 DESHAWN DING DO Mar 19, 2018 15:53
[2018-03-19] MEDS ORDERED: LACT1CAP8 PO (15:54)
[2018-03-19] MEDS ORDERED: FLUT9.9S NS (15:55)
[2018-03-19 16:37] VITALS: BP 148/97
== END 2018-03-19 16:37 | disposition home or self-care (01) ==
LOC: EDUNIT# 12:17 → ER 12:19
DX: K04.7 Periapical abscess without sinus (principal); J32.9 Chronic sinusitis, unspecified; F17.290 Nicotine dependence, other tobacco product, uncomplicated; J44.9 Chronic obstructive pulmonary disease, unspecified; I25.10 Atherosclerotic heart disease of native coronary artery without angina pectoris; I25.2 Old myocardial infarction; E78.00 Pure hypercholesterolemia, unspecified; I10 Essential (primary) hypertension; Z86.73 Personal history of transient ischemic attack (TIA), and cerebral infarction without residual deficits; Z95.1 Presence of aortocoronary bypass graft; Z95.810 Presence of automatic (implantable) cardiac defibrillator; Z90.89 Acquired absence of other organs; Z88.0 Allergy status to penicillin; Z88.6 Allergy status to analgesic agent; Z79.82 Long term (current) use of aspirin
CPT/HCPCS: 36415; 70487; 80053; 82150; 83605; 85025; 87040; 96365; 96375

== ENCOUNTER → 2018-05-26 | Outpatient (CLI) | payer MEDICARE ==
[~2018-05-26] MED LIST changes: +FLUT9.9S NS; +LACT1CAP8 PO; +LIDO15SO2 MM
--- NOTE | 2018-05-26 12:39 | Diagnostic Imaging Report ---
INDICATION: Hemoptysis. COMPARISON: 11/23/2014. FINDINGS: Frontal and lateral views of the chest demonstrate mild cardiomegaly. Pulmonary vasculature is within normal limits. Left-sided AICD and sternotomy wires are noted. The lungs are clear. There are no signs of infiltrate, pleural effusions or pneumothoraces. The visualized osseous structures show no acute abnormalities. IMPRESSION: 1. Mild cardiomegaly, but no evidence of failure or focal infiltrate. Dictated by: Dictated on workstation # [id number]
== END ==
LOC: RAD 09:33
PROVIDERS: ATTEND Family Medicine
DX: R04.2 Hemoptysis (principal); I51.7 Cardiomegaly
CPT/HCPCS: 71046

== ENCOUNTER → 2018-07-10 | Outpatient (CLI) | payer MEDICARE ==
[~2018-07-10] MED LIST changes: +IOHEXOL 350 MG/ML 100 ML (OMNIPAQUE 350) VIAL IV ONE; +NS 250 ML (IVPB) BAG IV ONE
--- NOTE | 2018-07-10 08:47 | Diagnostic Imaging Report ---
PROCEDURE: CT chest with contrast only. TECHNIQUE: Multiple contiguous axial images were obtained through the chest after administration of intravenous contrast. INDICATION: Hemoptysis. COPD. Coronary artery disease. COMPARISON: Chest radiographs 05/26/2018. FINDINGS: No pulmonary nodule or mass. No endobronchial lesions. No pleural effusion or pneumothorax. Calcified right hilar lymph nodes. No mediastinal, hilar or axillary lymphadenopathy. Normal heart size. No pericardial effusion. Sternotomy with CABG. Cardiac pacer. Qgvh-[id number] atherosclerotic calcifications including coronary and aortic. Normal caliber thoracic aorta and main pulmonary arteries. The visualized upper abdominal contents are unremarkable. Chronic anterior right fifth and sixth rib fractures. No acute osseous findings. IMPRESSION: No acute CT findings in the chest. Chronic findings as above. Dictated by: Dictated on workstation # [id number]
== END ==
LOC: RAD 07:45
PROVIDERS: ATTEND Family Medicine
DX: J44.9 Chronic obstructive pulmonary disease, unspecified (principal); I25.10 Atherosclerotic heart disease of native coronary artery without angina pectoris; R04.2 Hemoptysis; F17.200 Nicotine dependence, unspecified, uncomplicated
CPT/HCPCS: 71260

== ENCOUNTER 2018-08-28 19:37 | Emergency (ER) | payer MEDICARE ==
[~2018-08-28] VITALS: Ht 172.7 cm; Wt 120.2 kg
[~2018-08-28 19:37] MED LIST changes: -IOHEXOL 350 MG/ML 100 ML (OMNIPAQUE 350) VIAL IV ONE; -NS 250 ML (IVPB) BAG IV ONE
--- OUTSIDE RECORDS SUMMARY | 2018-08-28 19:41 | XMS REPORT | Clinical Summary ---
Author Author [facility] Organization [facility] Address Unknown Phone Unavailable Care Team Providers Care Correctional Officer Captain Name Role Phone PCP Unavailable Allergies Not on File Current Medications Not on file Active Problems Not on file Social History Tobacco Use Types Packs/Day Years Used Date Never Assessed Sex Assigned at Date Recorded Not on file Last Filed Vital Signs Not on file Plan of Treatment Not on file Results Not on filefrom Last 3 Months
--- OUTSIDE RECORDS SUMMARY | 2018-08-28 19:42 | XMS REPORT ---
Author Author HANNA MCKEON [facility] Address Unknown Care Team Providers Care Recreation Instructor Name Role Phone HANNA MCKEON Unavailable PROBLEMS Type Condition ICD9-CM Code YNR33-BT Code Onset Dates Condition Status SNOMED Code Problem Family history of diabetes mellitus V18.0 Active 217330089 Problem Syncope and collapse 780.2 Active 981256470 Problem Need for prophylactic vaccination and inoculation, Influenza V04.81 Active 907658706 Problem Obstructive sleep apnea (adult) (pediatric) 327.23 Active 76615968 Problem Other chronic pain 338.29 Active 41683959 Problem Asthma, unspecified, unspecified status 493.90 Active 51491133 Problem Unspecified pruritic disorder 698.9 Active 605727866 Problem Carpal tunnel syndrome 354.0 Active 34288053 Problem Coronary atherosclerosis of unspecified type of vessel, [place] or graft 414.00 Active 077198154 ALLERGIES No Information ENCOUNTERS Encounter Location Date Diagnosis [facility] [address] [id number] Mar, [facility] [address] [id number] Mar, Dental examination Z01.20 [facility] [address] [address] January, [facility] [id number] [place] [id number] Aug, Dental caries K02.9 [facility] [address] [id number] Aug, [facility] [address] [id number] Aug, [facility] [address] [id number] Aug, [facility] [address] [id number] [place] [id number] Aug, Dental examination Z01.20 [facility] [place] [facility] [address] [id number] [place] [address] 14 Dec, 2014 [facility] [place] [facility] [address] [id number] [place] [address] Dec, [facility] [place] [facility] [address] [id number] [place] [address] May, [facility] [place] [facility] [address] [id number] [place] [address] May, [facility] [place] [facility] [address] [id number] [place] [address] Apr, [facility] [place] [facility] [address] [id number] [place] [address] Apr, [facility] [place] [facility] [address] [id number] [place] [address] Apr, [facility] [place] [facility] [address] [id number] [place] [address] Apr, [facility] [place] [facility] [address] [id number] [place] [address] Apr, [facility] [place] [facility] [address] [id number] [place] [address] Mar, [facility] [place] [facility] [address] [id number], [place] [address] Mar, [facility] [place] [facility] [address] [id number] [place] [address] Mar, [facility] [place] [facility] [address] [id number], [place] [address] Mar, [facility] [place] [facility] [address] [id number] [place] [address] 14 Mar, 2014 [facility] [place] [facility] [address] [id number] [place] [address] 14 Mar, 2014 [facility] [place] [facility] [address] [id number] [place] [address] 10 Mar, 2014 [facility] [place] [facility] [address] [id number] [place] [address] Mar, [facility] [place] [facility] [address] [id number] [place] [address] Feb, [facility] [place] [facility] [address] [id number] [place] [address] Feb, [facility] [place] [facility] [address] [id number] [place] [address] January, [facility] [place] [facility] [address] [id number] [place] [address] January, [facility] [place] [facility] [address] [id number] [place] [address] Dec, [facility] [place] [facility] [address] [id number] [place] [address] Dec, [facility] [place] [facility] [address] [id number] [place] [address] Dec, [facility] [place] [facility] [address] [id number] [place] [address] Dec, [facility] [place] [facility] [address] [id number] [place] [address] Dec, [facility] [place] [facility] [address] [id number] [place] [address] Dec, [facility] [place] [facility] [address] [id number] [place] [address] Nov, [facility] [place] [facility] [address] [id number] [place] [address] Nov, [facility] [place] [facility] [address] [id number] [place] [address] Nov, [facility] [place] [facility] [address] [id number] [place] [address] Nov, [facility] [place] [facility] [address] [id number] [place] [address] Nov, [facility] [place] [facility] [address] [id number] [place] [address] Nov, [facility] [place] [facility] [address] [id number] [place] [address] Nov, [facility] [place] [facility] [address] [id number] [place] [address] Nov, [facility] [place] [facility] [address] [id number] [place] [address] Nov, [facility] [place] [facility] [address] [id number] [place] [address] Oct, [facility] [place] [facility] [address] [id number] [place] [address] Oct, [facility] [place] [facility] [address] [id number] [place] [address] Sep, [facility] [place] [facility] [address] [id number] [place] [address] Sep, [facility] [place] [facility] [address] [id number] [place] [address] Sep, [facility] [place] [facility] [address] [id number] [place] [address] Sep, [facility] [place] [facility] [address] [id number] [place] [address] Aug, [facility] [place] [facility] [address] [id number] [place] [address] Aug, [facility] [place] [facility] [address] [id number] [place] [address] Aug, [facility] [place] [facility] [address] [id number] [place] [address] Jul, [facility] [place] [facility] [address] [id number] [place] [address] Jul, [facility] [place] [facility] [address] [id number] [place] [address] Jul, [facility] [place] [facility] [address] [id number] [place] [address] Jul, [facility] [place] [facility] [address] [id number], [place] [address] Jul, [facility] [place] [facility] [address] [id number] [place] [address] Jun, [facility] [place] [facility] [address] [id number] [place] [address]- [address] Jun, [facility] [place] [facility] [address] [id number], [place] [address] Jun, [facility] [place] [facility] [address] [id number], [place] [address] Jun, [facility] [place] [facility] [address] [id number], [place] [address] Jun, [facility] [place] [facility] [address] [id number], [place] [address] Jun, [facility] [place] [facility] [address] [id number], [place] [address] Jun, [facility] [place] [facility] [address] [id number], [place] [address] Jun, [facility] [place] [facility] [address] [id number], [place] [address] Jun, [facility] [place] [facility] [address] [id number], [place] [address]- [address] Jun, [facility] [place] [facility] [address] [id number], [place] [address] Jun, [facility] [place] [facility] [address] [id number] [place] [address] Jun, [facility] [address] [id number] [place] [address] Jun, [facility] [address] [id number] [place] [address] May, [facility] [address] [id number] [place] [address]- [address] 15 May, 2013 [facility] [address] [id number] [place] [address]- [address] May, [facility] [address] [id number] [place] [address]- [address] May, [facility] [address] [id number] [place] [address] Apr, [facility] [address] [id number] [place] [address]- 8[address] Apr, [facility] [address] [id number] [place] [address] Apr, [facility] [address] [id number] [place] [address] Mar, [facility] [address] [id number] [place] [address] January, [facility] [address] [id number] [place] [address]- [address]46 January, [facility] [address] [id number] [place] [address]- [address] January, [facility] [address] [id number] [place] [address]- [address] Dec, [facility] [address] [id number] [place] [address]- [address] Dec, [facility] [address] [id number] [place] [address]- [address] Nov, [facility] [address] [id number] [place] [address]- [address] 05 Nov, 2012 [facility] [place] [facility] [address] [id number] [place] [address]- [address] Oct, [facility] [place] [facility] [address] [id number] [place] [address]- [address] 05 Oct, 2012 [facility] [place] [facility] [address] [id number] [place] [address]- [address] Aug, [facility] [place] [facility] [address] [id number] [place] [address]- [address] Aug, [facility] [place] [facility] [address] [id number] [place] [address] Aug, [facility] [place] [facility] [address] [facility] [id number] [place] [address]- [address] Aug, [facility] [place] [facility] [address] [id number] [place] [address]- [address] Aug, [facility] [place] [facility] [address] [id number] [place] [address]- 9[address] Aug, [facility] [place] [facility] [address] [facility] [id number], [place] [address]- [address] Jun, [facility] [place] [facility] [address] [id number], [place] [address]- [address] Jun, [facility] [place] [facility] [address] [id number], [place] [address]- 8567 May, [facility] [place] [facility] [address] [id number] [place] [address]- [address] May, [facility] [place] [facility] [address] [id number], [place] [address]- [address] Apr, [facility] [place] [facility] [address] [id number] [place] [address]- 9364 Apr, [facility] [place] [facility] [address] [id number] [place] [address]- 6010 13 Apr, 2012 [facility] [address] [id number] [place] [address]- [address] 13 Mar, 2012 [facility] [place] [facility] [address] [id number] [place] [address]- [address] 14 Feb, 2012 [facility] [address] [id number] [place] [address]- 75[address] January, [facility] [place] [facility] [address] [id number] [place] [address]- [address]30 Dec, [facility] [address] [id number] [place] [address]- [address] Nov, [facility] [address] [id number] [id number] Oct, [facility] [address] [id number] [place] [address] Sep, [facility] [address] [id number] [place] [address]- [address] Jul, [facility] [address] [id number] [place] [address]- 8566 Jul, [facility] [place] [facility] [address] [id number] [place] [address]- 4422 Jul, [facility] [address] [id number], [place] [address] 17 Jul, 2011 [facility] [place] [facility] [address] [id number] [place] [address] 8[address] Jun, [facility] [place] [facility] [address] [id number] [place] [address]- 5132 24 Jul, 2010 [facility] [place] [facility] [address] [id number] [place] [address]- 6[address] 15 Jul, 2010 [facility] [place] [facility] [address] [id number] [place] [address] 9143 08 Jul, 2010 [facility] [place] [facility] [address] [id number], [place] [address] 14 Aug, 2009 [facility] [address] [id number], [place] [address] Jul, [facility] [id number], [place] [address] Jun, [facility] [address] [id number], [place] [address] Jun, [facility] [address]65[address], [place] [address] Aug, [facility] [address] [id number] [address] Aug, [facility] [id number], [place] [address] Jul, IMMUNIZATIONS No Known Immunizations SOCIAL HISTORY Never Assessed REASON FOR VISIT Requests return call PLAN OF CARE VITAL SIGNS MEDICATIONS Unknown Medications RESULTS No Results PROCEDURES No Known procedures INSTRUCTIONS MEDICATIONS ADMINISTERED No Known Medications MEDICAL (GENERAL) HISTORY Type Description Date Medical History Heart Disease Medical History Heart Attack Medical History Stroke Medical History Pace maker Medical History COPD Medical History Per Dr. Gomes patient is not to stop plavix for dental treatment. Surgical History Heart Bypass 2013 Surgical History Stints 2017 Surgical History Pacemaker 2017 Surgical History ACL Hospitalization History Surgery related Hospitalization History Heart attack X 5
--- OUTSIDE RECORDS SUMMARY | 2018-08-28 19:42 | XMS REPORT ---
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 Name Role Phone HANNA MCKEON Unavailable PROBLEMS Type Condition ICD9-CM Code RMR00-UY Code Onset Dates Condition Status SNOMED Code Problem Family history of diabetes mellitus V18.0 Active 184807501 Problem Syncope and collapse 780.2 Active 551437237 Problem Need for prophylactic vaccination and inoculation, Influenza V04.81 Active 874088228 Problem Obstructive sleep apnea (adult) (pediatric) 327.23 Active 12894707 Problem Other chronic pain 338.29 Active 62524757 Problem Asthma, unspecified, unspecified status 493.90 Active 19876501 Problem Unspecified pruritic disorder 698.9 Active 526466321 Problem Carpal tunnel syndrome 354.0 Active 70737616 Problem Coronary atherosclerosis of unspecified type of vessel, seminole or graft 414.00 Active 972407003 ALLERGIES Substance Reaction Event Type Date Status Penicillin V Potassium Unknown Drug Allergy Mar, Active Oxycodone NARC ALERT pt broke pain contract Drug Allergy Mar, Active ENCOUNTERS Encounter Location Date Diagnosis [facility] [id number] [place] [id number] Mar, [facility] [id number] [place] [address] [id number] Mar, Dental examination Z01.20 [facility] [id number] [place] [address] [id number] January, [facility] [address] [id number] Aug, Dental caries K02.9 [facility] [id number] [place] [address] [id number] Aug, [facility] [id number] [place] [address] [id number] Aug, [facility] [address] [id number] [id number] Aug, [facility] [address] [id number][place] [id number] Aug, Dental examination Z01.20 [facility] [place] [facility] [address] [id number] [place] [address] 14 Dec, 2014 [facility] [place] [facility] [address] [id number], [place] [address] 6930 Dec, [facility] [place] [facility] [address] [id number] [place] [address] 5183 May, [facility] [place] [facility] [address] [id number], [place] [address] 4[address] May, [facility] [place] [facility] [address] [id number] [place] [address]- 1479 Apr, [facility] [place] [facility] [address] [id number], [place] [address] 5542 Apr, [facility] [place] [facility] [address] [id number], [place] [address]- 8773 Apr, [facility] [place] [facility] [address] [id number], [place] [address] Apr, [facility] [place] [facility] [address] [id number], [place] [address] Apr, [facility] [place] [facility] [address] [id number], [place] [address] 3120 Mar, [facility] [place] [facility] [address] [id number], [place] [address] 2849 Mar, [facility] [place] [facility] [address] [id number]- 1045 Mar, [facility] [place] [facility] [address] [id number] [address] Mar, [facility] [place] [facility] [address] [id number] [place] [address]- 9833 14 Mar, 2014 [facility] [place] [facility] [address] [id number] [place] [address] 9301 14 Mar, 2014 [facility] [place] [facility] [address] [id number] [place] [address]- 3896 Mar, [facility] [place] [facility] [address] [id number] [place] [address] 2071 Mar, [facility] [place] [facility] [address] [id number] [place] [address] 4070 Feb, [facility] [place] [facility] [address] [id number] [place] [address]- 4906 Feb, [facility] [place] [facility] [address] [id number] [place] [address] 2610 January, [facility] [place] [facility] [address] [id number] [place] [address]- 7014 January, [facility] [place] [facility] [address] [id number] [place] [address] 7347 Dec, [facility] [place] [facility] [address] [id number] [place] [address]- 8696 Dec, [facility] [place] [facility] [address] [id number] [place] [address]- 5081 Dec, [facility] [place] [facility] [address] [id number] [place] [address]- 4796 Dec, [facility] [place] [facility] [address] [id number] [place] [address]- 1082 Dec, [facility] [place] [facility] [address] [id number] [place] [address]- 8828 Dec, [facility] [place] [facility] [address] [id number] [place] [address]- 8124 Nov, [facility] [place] [facility] [address] [id number] [place] [address]- 2664 Nov, [facility] [place] [facility] [address] [id number] [place] [address]- 0533 Nov, [facility] [place] [facility] [address] [id number] [place] [address]- 3446 Nov, [facility] [place] [facility] [address] [id number] [place] [address]- 3400 Nov, [facility] [place] [facility] [address] [id number] [place] [address]- 5936 Nov, [facility] [place] [facility] [address] [id number] [place] [address]- 7836 Nov, [facility] [place] [facility] [address] [id number] [place] [address]- 1123 Nov, [facility] [place] [facility] [address] [id number] [place] [address]- 6915 Nov, [facility] [place] [facility] [address] [id number] [place] [address]- 1615 Oct, [facility] [place] [facility] [address] [id number] [place] [address]- 0329 Oct, [facility] [place] [facility] [address] [id number] [place] [address]- 9213 Sep, [facility] [place] [facility] [address] [id number] [place] [address]- 7270 Sep, [facility] [place] [facility] [address] [id number] [place] [address]- 9921 Sep, [facility] [place] [facility] [address] [id number] [place] [address]- 1024 Sep, [facility] [place] [facility] [address] [id number] [place] [address]- 4934 Aug, [facility] [place] [facility] [address] [id number] [place] [address]- 2806 Aug, [facility] [place] [facility] [address] [id number], [place] [address] 4210 Aug, [facility] [place] [facility] [address] [id number] [place] [address]- 1440 Jul, [facility] [place] [facility] [address] [id number], [place] [address]- 4[address] Jul, [facility] [place] [facility] [address] [id number] [place] [address]- 5665 Jul, [facility] [place] [facility] [address] [id number], [place] [address] 1559 Jul, [facility] [place] [facility] [address] [id number] [place] [address]- 0406 Jul, [facility] [place] [facility] [address] [id number] [place] [address]- 3844 Jun, [facility] [place] [facility] [address] [id number], [place] [address]- 0184 Jun, [facility] [place] [facility] [address] [id number], [place] [address]- 5317 Jun, [facility] [place] [facility] [address] [id number], [place] [address]- 1218 Jun, [facility] [place] [facility] [address] [id number], [place] [address]- 6544 Jun, [facility] [place] [facility] [address] [id number], [place] [address]- 6948 Jun, [facility] [place] [facility] [address] [id number], [place] [address]- 3674 Jun, [facility] [place] [facility] [address] [id number], [place] [address]- 1563 Jun, [facility] [place] [facility] [address] [id number], [place] [address]- 2339 Jun, [facility] [place] [facility] [address] [id number], [place] [address]- 6111 Jun, [facility] [place] [facility] [address] [id number] [place] [address]- 2546 Jun, [facility] [address] [id number] [place] [address]- 2471 Jun, [facility] [address] [id number] [place] [address]- 2546 Jun, [facility] [address] [id number] [place] [address]- 6006 May, [facility] [address] [id number] [place] [address]- 9973 15 May, 2013 [facility] [address] [id number] [place] [address]- 1536 May, [facility] [address] [id number] [place] [address]- 3458 May, [facility] [address] [id number] [place] [address]- 3195 Apr, [facility] [address] [id number] [place] [address]- 4398 Apr, [facility] [address] [id number] [place] [address]- 7557 Apr, [facility] [address] [id number] [place] [address]- 6603 Mar, [facility] [address] [id number] [place] [address]- 7760 January, [facility] [address] [id number] [place] [address]- 7624 January, [facility] [place] [facility] [address] [id number] [place] [address]- 6436 January, [facility] [address] [id number] [place] [address]- 2546 Dec, [facility] [address] [id number] [place] [address]- 0373 Dec, [facility] [address] [id number] [place] [address]- 4857 Nov, [facility] [place] [facility] [address] [id number] [place] [address]- 8441 Nov, [facility] [place] [facility] [address] [id number] [place] [address]- 3780 Oct, [facility] [place] [facility] [address] [id number] [place] [address]- 6072 Oct, [facility] [address] [id number] [place] [address]- 9582 Aug, [facility] [place] [facility] [address] [id number] [place] [address]- 8020 Aug, [facility] [place] [facility] [address] [facility] [id number] [place] [address]- 1500 Aug, [facility] [place] [facility] [address] [id number], [place] [address]- 1904 Aug, [facility] [place] [facility] [address] [facility] [id number] [place] [address]- 6518 Aug, [facility] [place] [facility] [address] [facility] [id number] [place] [address]- 2798 Aug, [facility] [place] [facility] [address] [facility] [id number], [place] [address]- 5007 Jun, [facility] [place] [facility] [address] [id number], [place] [address]- 7630 Jun, [facility] [place] [facility] [address] [facility] [id number] [place] [address]- 6446 May, [facility] [place] [facility] [address] [id number], [place] [address]- 9119 May, [facility] [place] [facility] [address] [facility] [id number] [place] [address]- 8672 Apr, [facility] [place] [facility] [address] [id number] [place] [address]- 4836 30 Apr, 2012 [facility] [place] [facility] [address] [id number] [place] [address]- 0960 Apr, [facility] [place] [facility] [address] [id number] [place] [address]- 1105 13 Mar, 2012 [facility] [place] [facility] [address] [id number] [place] [address]- 5481 14 Feb, 2012 [facility] [place] [facility] [address] [facility] [id number] [place] [address]- 4037 January, [facility] [place] [facility] [address] [id number] [place] [address]- 0939 Dec, [facility] [place] [facility] [id number] [place] [address]- 9443 Nov, [facility] [id number] [id number] Oct, [facility] [place] [facility] [id number] [place] [address]- 3935 Sep, [facility] [place] [facility] [id number] [place] [address]- 2632 Jul, [facility] [place] [facility] [address] [id number] [place] [place] [address]- 0054 Jul, [facility] [place] [facility] [address] [id number], [place] [address]- 0105 Jul, [facility] [place] [facility] [address] [id number], [place] [address]- 9457 17 Jul, 2011 [facility] [place] [facility] [address] [id number] [place] [address]- 3469 28 Jun, 2011 [facility] [place] [facility] [address] [facility] [id number] [place] [address]- 1758 24 Jul, 2010 [facility] [place] [facility] [address] [id number] [place] [address]- 3172 15 Jul, 2010 [facility] [place] [facility] [address] [id number]- 5932 08 Jul, 2010 [facility] [address] [address]- 3969 14 Aug, 2009 [facility] [address], [place] [address]- 9579 16 Jul, 2009 [facility] [id number] 4080 Jun, [facility] [address], [place] [address]- 8450 Jun, [facility] [id number] [place] [address] 787406- 6723 Aug, [facility] [address], [place] [address] Aug, [facility] [address], [place] [address]- 7167 Jul, IMMUNIZATIONS No Known Immunizations SOCIAL HISTORY Never Assessed REASON FOR VISIT SHAD PLAN OF CARE Activity Details Follow Up prn Reason:#20-te VITAL SIGNS Height 68 in 2018-03-18 Blood pressure systolic 144 mmHg 2018-03-18 Blood pressure diastolic 84 mmHg 2018-03-18 MEDICATIONS Medication Instructions Dosage Frequency Start Date End Date Duration Status Plavix Active Lipitor Active Tramadol HCl Active Spiriva 18 mcg inhale 1 capsule (18 mcg) by inhalation route once daily Apr, Active Advair Diskus 250 mcg-50 mcg 1 puffs by Inhalation route 2 times per day Nov, Active Trosper 5-325 MG Orally every 6 hrs 1 tablet as needed 6h 4 days Not- Taking Clindamycin HCl 150 MG Orally every 6 hrs 2 capsules 6h 7 days Active RESULTS No Results PROCEDURES Procedure Date Ordered Result Body Site LTD ORAL EVALUATION - PROBLEM FOCUS March 18, 2018 INTRAORL-PERIAPICAL 1 FILM 41697 March 18, 2018 BITEWING - SINGLE FILM March 18, 2018 INSTRUCTIONS MEDICATIONS ADMINISTERED No Known Medications MEDICAL (GENERAL) HISTORY Type Description Date Medical History Heart Disease Medical History Heart Attack Medical History Stroke Medical History Pace maker Medical History COPD Medical History Per Dr. Eliseo patient is not to stop plavix for dental treatment. Surgical History Heart Bypass 2013 Surgical History Stints 2017 Surgical History Pacemaker 2017 Surgical History ACL Hospitalization History Surgery related Hospitalization History Heart attack X 5
--- OUTSIDE RECORDS SUMMARY | 2018-08-28 19:46 | XMS REPORT | Continuity of Care Document ---
Author Author [facility] Address Unknown Phone Unavailable Allergies Active Description Code Type Severity Reaction Onset Reported/Identified Relationship to Patient Clinical Status Yes Penicillins [id number] Drug Allergy Unknown N/A 01/14/2006 Yes Penicillins Drug Allergy 10/11/2008 Yes Penicillins Drug Allergy N/A N/A 10/11/2008 Yes ketorolac [id number] Drug Allergy Unknown N/A 03/30/2010 Yes Oxycodone [...] Foreign Body Granuloma Of Muscle 09/18/2008 RIANA RIG BUILDER, KEE S 728.82 Foreign Body Granuloma Of Muscle 09/20/2008 RIANA GERARD KEE S 272.4 HYPERLIPIDEMIA 09/20/2008 RIANA GERARD KEE S 728.85 Spasm Of Muscle 09/20/2008 RIANA GERARD KEE S 272.4 HYPERLIPIDEMIA 09/20/2008 RIANA EGRARD KEE S 728.85 Spasm Of Muscle 09/20/2008 RIANA GERARD KEE S 272.4 HYPERLIPIDEMIA 09/20/2008 RIANA GERARD, KEE S 728.85 Spasm Of Muscle 09/20/2008 272.4 HYPERLIPIDEMIA 09/20/2008 728.85 Spasm Of Muscle 09/20/2008 ZAFAR AVALOS MD 272.4 HYPERLIPIDEMIA 09/20/2008 ZAFAR AVALOS MD 728.85 Spasm Of Muscle 09/20/2008 LUDWIN HERNÁNDEZ DOA K 272.4 HYPERLIPIDEMIA 09/20/2008 HERNÁNDEZ DO ANDIE K 728.85 Spasm Of Muscle 09/20/2008 RIANA RIG BUILDER, KEE S 272.4 HYPERLIPIDEMIA 09/20/2008 RIANA RIG BUILDER, KEE S 728.85 Spasm Of Muscle 09/20/2008 RIANA RIG BUILDER, KEE S 272.4 HYPERLIPIDEMIA 09/20/2008 RIANA RIG BUILDER, KEE S 728.85 Spasm Of Muscle 09/20/2008 RIANA RIG BUILDER, KEE S 272.4 HYPERLIPIDEMIA 09/20/2008 RIANA RIG BUILDER, KEE S 728.85 Spasm Of Muscle 09/23/2008 RIANA RIG BUILDER, KEE S 270.7 HYPERGLYCEMIA 09/23/2008 RIANA RIG BUILDER, KEE S 715.90 Osteoarthrosis Unspecified Whether Generalized Or Localized Involving Unspecified Site 09/23/2008 RIANA RIG BUILDER, KEE S 270.7 HYPERGLYCEMIA 09/23/2008 RIANA LIN, KEE S 715.90 Osteoarthrosis Unspecified Whether Generalized Or Localized Involving Unspecified Site 09/23/2008 RIANA LIN, KEE S 270.7 HYPERGLYCEMIA 09/23/2008 RIANA LIN, KEE S 715.90 Osteoarthrosis Unspecified Whether Generalized Or Localized Involving Unspecified Site 09/23/2008 270.7 HYPERGLYCEMIA 09/23/2008 715.90 Osteoarthrosis Unspecified Whether Generalized Or Localized Involving Unspecified Site 09/23/2008 ZAAFR AVALOS MD 270.7 HYPERGLYCEMIA 09/23/2008 ZAFAR AVALOS [...] Or Localized Involving Unspecified Site 09/23/2008 RIANA RIG BUILDER, KEE S 270.7 HYPERGLYCEMIA 09/23/2008 RIANA LIN, KEE S 715.90 Osteoarthrosis Unspecified Whether Generalized Or Localized Involving Unspecified Site 09/23/2008 RIANA RIG BUILDER, KEE S 270.7 HYPERGLYCEMIA 09/23/2008 RIANA RIG BUILDER, KEE S 715.90 Osteoarthrosis Unspecified Whether Generalized Or Localized Involving Unspecified Site 10/11/2008 RIANA RIG BUILDER, KEE S 251.1 Other Specified Hypoglycemia 10/11/2008 RIANA RIG BUILDER, KEE S 272.0 Pure Hypercholesterolemia 10/11/2008 RIANA RIG BUILDER, KEE S 729.5 Pain In Limb 10/11/2008 RIANA RIG BUILDER, KEE S 251.1 Other Specified Hypoglycemia 10/11/2008 RIANA RIG BUILDER, KEE S 272.0 Pure Hypercholesterolemia 10/11/2008 RIANA RIG BUILDER, KEE S 729.5 Pain In Limb 10/11/2008 RIANA RIG BUILDER, KEE S 251.1 Other Specified Hypoglycemia 10/11/2008 RIANA RIG BUILDER, KEE S 272.0 Pure Hypercholesterolemia 10/11/2008 RIANA RIG BUILDER, KEE S 729.5 Pain In Limb 10/11/2008 [...] K 729.5 Pain In Limb 10/11/2008 RIANA RIG BUILDER, KEE S 251.1 Other Specified Hypoglycemia 10/11/2008 RIANA RIG BUILDER, KEE S 272.0 Pure Hypercholesterolemia 10/11/2008 RIANA RIG BUILDER, KEE S 729.5 Pain In Limb 10/11/2008 RIANA RIG BUILDER, KEE S 251.1 Other Specified Hypoglycemia 10/11/2008 RIANA RIG BUILDER, KEE S 272.0 Pure Hypercholesterolemia 10/11/2008 RIANA RIG BUILDER, KEE S 729.5 Pain In Limb 10/11/2008 RIANA RIG BUILDER, KEE S 251.1 Other Specified Hypoglycemia 10/11/2008 RIANA RIG BUILDER, KEE S 272.0 Pure Hypercholesterolemia 10/11/2008 AMINA [...] HERNÁNDEZ DO 715.09 Djd-generalized 03/04/2009 RIANA GERARD KEE S [...] ANDIE K NODX No Diagnosis 04/20/2009 RIANA RIG BUILDER, KEE S NODX No Diagnosis 04/20/2009 RIANA RIG BUILDER, KEE S NODX No Diagnosis 04/20/2009 RIANA RIG BUILDER, KEE S NODX No Diagnosis 06/22/2009 RIANA RIG BUILDER, KEE S 558.9 Gastroenteritis Noninfectious 06/22/2009 RIANA RIG BUILDER, KEE S 558.9 Gastroenteritis Noninfectious 06/22/2009 RIANA RIG BUILDER, KEE S 558.9 Gastroenteritis Noninfectious 06/22/2009 558.9 Gastroenteritis Noninfectious 06/22/2009 ZAFAR AVALOS MD 558.9 Gastroenteritis Noninfectious 06/22/2009 ANDIE HERNÁNDEZ DO K 558.9 Gastroenteritis Noninfectious 06/22/2009 RIANA RIG BUILDER, KEE S 558.9 Gastroenteritis Noninfectious 06/22/2009 RIANA RIG BUILDER, KEE S 558.9 Gastroenteritis Noninfectious 06/22/2009 RIANA RIG BUILDER, KEE S 558.9 Gastroenteritis Noninfectious 02/13/2010 RIANA RIG BUILDER, KEE S 414.01 Coronary Artery Stenosis Multi-vessel 02/13/2010 RIANA GERRAD, KEE S 414.01 Coronary Artery Stenosis Multi-vessel 02/13/2010 RIANA RIG BUILDER, KEE S 414.01 Coronary Artery Stenosis Multi-vessel 02/13/2010 414.01 Coronary Artery Stenosis Multi-vessel 02/13/2010 ZAFAR AVALOS MD 414.01 Coronary Artery Stenosis Multi-vessel 02/13/2010 BETTY SANCHEZ, ANDIE K 414.01 Coronary Artery Stenosis Multi-vessel 02/13/2010 RIANA RIG BUILDER, KEE S 414.01 Coronary Artery Stenosis Multi-vessel 02/13/2010 RIANA LIN, KEE S 414.01 Coronary Artery Stenosis Multi-vessel 02/13/2010 RIANA RIG BUILDER, KEE S 414.01 Coronary Artery Stenosis Multi-vessel 04/17/2010 RIANA RIG BUILDER, KEE S 305.1 NICOTINE DEPENDENCE 04/17/2010 RIANA GERARD KEE S 733.6 Costochondritis (tietze's Syndrome) 04/17/2010 RIANA RIG BUILDER, KEE S 305.1 NICOTINE DEPENDENCE 04/17/2010 RIANA RIG BUILDER, KEE S 733.6 Costochondritis (tietze's Syndrome) 04/17/2010 RIANA RIG BUILDER, KEE S 305.1 NICOTINE DEPENDENCE 04/17/2010 RIANA RIG BUILDER, KEE S 733.6 Costochondritis (tietze's Syndrome) 04/17/2010 305.1 NICOTINE DEPENDENCE 04/17/2010 733.6 Costochondritis (tietze's Syndrome) 04/17/2010 ZAFAR AVALOS MD 305.1 NICOTINE DEPENDENCE 04/17/2010 ZAFAR AVALOS MD 733.6 Costochondritis (tietze's Syndrome) 04/17/2010 HERNÁNDEZ DO, ANDIE K 305.1 NICOTINE DEPENDENCE 04/17/2010 HERNÁNDEZ DO, ANDIE K 733.6 Costochondritis (tietze's Syndrome) 04/17/2010 RIANA RIG BUILDER, KEE S 305.1 NICOTINE DEPENDENCE 04/17/2010 RIANA RIG BUILDER, KEE S 733.6 Costochondritis (tietze's Syndrome) 04/17/2010 RIANA RIG BUILDER, KEE S 305.1 NICOTINE DEPENDENCE 04/17/2010 RIANA RIG BUILDER, KEE S 733.6 Costochondritis (tietze's Syndrome) 04/17/2010 RIANA RIG BUILDER, KEE S 305.1 NICOTINE DEPENDENCE 04/17/2010 RIANA RIG BUILDER, KEE S 733.6 Costochondritis (tietze's Syndrome) 11/01/2010 RIANA RIG BUILDER, KEE S 786.50 Chest Pain 11/01/2010 RIANA RIG BUILDER, KEE S 786.50 Chest Pain 11/01/2010 RIANA RIG BUILDER, KEE S 786.50 Chest Pain 11/01/2010 786.50 Chest Pain 11/01/2010 ZAFAR AVALOS MD 786.50 Chest Pain 11/01/2010 HERNÁNDEZ DO, ANDIE K 786.50 Chest Pain 11/01/2010 RIANA RIG BUILDER, KEE S 786.50 Chest Pain 11/01/2010 RIANA RIG BUILDER, KEE S 786.50 Chest Pain 11/01/2010 RIANA RIG BUILDER, KEE S 786.50 Chest Pain 12/12/2010 RIANA RIG BUILDER, KEE S 724.2 lower back pain 12/12/2010 RIANA RIG BUILDER, KEE S 724.2 lower back pain 12/12/2010 RIANA RIG BUILDER, KEE S 724.2 lower back pain 12/12/2010 724.2 lower back pain 12/12/2010 ZAFAR AVALOS MD 724.2 lower back pain 12/12/2010 HERNÁNDEZ DO, ANDIE K 724.2 lower back pain 12/12/2010 RIANA RIG BUILDER, KEE S 724.2 lower back pain 12/12/2010 RIANA RIG BUILDER, KEE S 724.2 lower back pain 12/12/2010 RIANA RIG BUILDER, KEE S 724.2 lower back pain 05/29/2011 RIANA RIG BUILDER, KEE S 493.00 ASTHMA EXTRINSIC 05/29/2011 RIANA RIG BUILDER, KEE S 493.00 ASTHMA EXTRINSIC 05/29/2011 RIANA RIG BUILDER, KEE S 493.00 ASTHMA EXTRINSIC 05/29/2011 493.00 ASTHMA EXTRINSIC 05/29/2011 ZAFAR AVALOS MD 493.00 ASTHMA EXTRINSIC 05/29/2011 HERNÁNDEZ DO, ANDIE K 493.00 ASTHMA EXTRINSIC 05/29/2011 RIANA RIG BUILDER, KEE S 493.00 ASTHMA EXTRINSIC 05/29/2011 RIANA RIG BUILDER, KEE S 493.00 ASTHMA EXTRINSIC 05/29/2011 RIANA RIG BUILDER, KEE S 493.00 ASTHMA EXTRINSIC 07/30/2011 RIANA RIG BUILDER, KEE S 780.57 UNSPECIFIED SLEEP APNEA 07/30/2011 RIANA RIG BUILDER, KEE S 780.57 UNSPECIFIED SLEEP APNEA 07/30/2011 RIANA RIG BUILDER, KEE S 780.57 UNSPECIFIED SLEEP APNEA 07/30/2011 780.57 UNSPECIFIED SLEEP APNEA 07/30/2011 ZAFAR AVALOS MD 780.57 UNSPECIFIED SLEEP APNEA 07/30/2011 HERNÁNDEZ DO, ANDIE K 780.57 UNSPECIFIED SLEEP APNEA 07/30/2011 RIANA RIG BUILDER, KEE S 780.57 UNSPECIFIED SLEEP APNEA 07/30/2011 RIANA RIG BUILDER, KEE S 780.57 UNSPECIFIED SLEEP APNEA 07/30/2011 RIANA RIG BUILDER, KEE S 780.57 UNSPECIFIED SLEEP APNEA 05/08/2012 RIANA RIG BUILDER, KEE S 338.29 CHRONIC PAIN 05/08/2012 RIANA RIG BUILDER, KEE S 414.00 CAD 05/08/2012 RIANA RIG BUILDER, KEE S V18.0 FAMILY HISTORY OF DIABETES MELLITUS 05/08/2012 RIANA RIG BUILDER, KEE S 338.29 CHRONIC PAIN 05/08/2012 RIANA [...] FAMILY HISTORY OF DIABETES MELLITUS 05/08/2012 RIANA RIG BUILDER, KEE S 338.29 CHRONIC PAIN 05/08/2012 RIANA RIG BUILDER, KEE S 414.00 CAD 05/08/2012 IRANA RIG BUILDER, KEE S V18.0 FAMILY HISTORY OF DIABETES MELLITUS 06/24/2012 RIANA RIG BUILDER, KEE S V04.81 FLU DX (MEDICARE ONLY) 06/24/2012 RIANA RIG BUILDER, KEE S V04.81 FLU DX (MEDICARE ONLY) 06/24/2012 RIANA RIG BUILDER, KEE S V04.81 FLU DX (MEDICARE ONLY) 06/24/2012 V04.81 FLU DX ( MEDICARE ONLY) 06/24/2012 ZAFAR AVALOS MD V04.81 FLU DX (MEDICARE ONLY) 06/24/2012 ANDIE HERNÁNDEZ DO V04.81 FLU DX (MEDICARE ONLY) 06/24/2012 RIANA RIG BUILDER, KEE S V04.81 FLU DX (MEDICARE ONLY) 06/24/2012 RIANA LIN, KEE S V04.81 FLU DX (MEDICARE ONLY) 06/24/2012 RIANA RIG BUILDER, KEE S V04.81 FLU DX (MEDICARE ONLY) 10/22/2012 RIANA LIN, KEE S 354.0 CARPAL TUNNEL SYNDROME 10/22/2012 354.0 CARPAL TUNNEL SYNDROME 10/22/2012 ZAFAR AVALOS MD 354.0 CARPAL TUNNEL SYNDROME 10/22/2012 ANDIE HERNÁNDEZ DO 354.0 CARPAL TUNNEL SYNDROME 10/22/2012 RIANA RIG BUILDER, KEE S 354.0 CARPAL TUNNEL SYNDROME 10/22/2012 RIANA RIG BUILDER, KEE S 354.0 CARPAL TUNNEL SYNDROME 10/22/2012 RIANA RIG BUILDER, KEE S 354.0 CARPAL TUNNEL SYNDROME 04/13/2013 780.2 SYNCOPE 04/13/2013 ZAFAR AVALOS MD 780.2 SYNCOPE 04/13/2013 ANDIE HERNÁNDEZ DO 780.2 SYNCOPE 04/13/2013 RIANA RIG BUILDER, KEE S 780.2 SYNCOPE 04/13/2013 RIANA RIG BUILDER, KEE S 780.2 SYNCOPE 04/13/2013 RIANA LIN, KEE S 780.2 SYNCOPE 04/17/2013 493.90 ASTHMA UNSPECIFIED 04/17/2013 ZAFAR AVALOS MD 493.90 ASTHMA UNSPECIFIED 04/17/2013 ANDIE HERNÁNDEZ DO 493.90 ASTHMA UNSPECIFIED 04/17/2013 RIANA RIG BUILDER, KEE S 493.90 ASTHMA UNSPECIFIED 04/17/2013 RIANA RIG BUILDER, KEE S 493.90 ASTHMA UNSPECIFIED 04/17/2013 RIANA RIG BUILDER, KEE S 493.90 ASTHMA UNSPECIFIED 04/27/2013 ZAFAR AVALOS MD 327.23 sleep apnea 04/27/2013 ANDIE HERNÁNDEZ DO 327.23 sleep apnea 04/27/2013 RIANA RIG BUILDER, KEE S 327.23 sleep apnea 04/27/2013 RIANA RIG BUILDER, KEE S 327.23 sleep apnea 04/27/2013 RIANA RIG BUILDER, KEE S 327.23 sleep apnea 11/10/2013 RIANA RIG BUILDER, KEE S 698.9 PRURITUS NOS 11/10/2013 RIANA RIG BUILDER, KEE S 698.9 PRURITUS NOS 11/10/2013 RIANA RIG BUILDER, KEE S 698.9 PRURITUS NOS 01/13/2014 ITMO SEYMOUR MD Ot 845.00 SPRAIN OF ANKLE [...] GELLENDER DO, LAZARO Olson Ot 414.00 11/23/2014 [facility] DO, LAZARO Olson Ot 414.2 11/23/2014 [facility] DO, LAZARO Olson Ot 414.8 11/23/2014 [facility], LAZARO Olson Ot 493.20 11/23/2014 [facility], LAZARO Olson Ot 715.90 11/23/2014 [facility] DO, LAZARO Olson Ot 724.5 11/23/2014 [facility] DO, LAZARO Olson Ot V12.54 11/23/2014 [facility] Ot V15.81 11/23/2014 [facility] LAZARO Olson Ot V45.02 11/23/2014 [facility] LAZARO Olson Ot V45.81 11/23/2014 [facility], LAZARO Olson Ot V45.82 11/23/2014 [facility] DO, LAZARO Olson Ot V85.41 11/26/2014 [facility], LAZARO Olson Ot 272.0 PURE HYPERCHOLESTEROLEM 11/26/2014 [facility], LAZARO Olson Ot 278.01 MORBID OBESITY 11/26/2014 [facility], LAZARO Olson Ot 305.1 TOBACCO USE DISORDER 11/26/2014 [facility], LAZARO Olson Ot 327.23 OBSTRUCTIVE SLEEP APNEA (ADULT) (PEDIATR 11/26/2014 [facility], LAZARO Olson Ot 338.29 OTHER CHRONIC PAIN 11/26/2014 [facility], LAZARO Olson Ot 401.9 HYPERTENSION NOS 11/26/2014 [facility], LAZARO Olson Ot 411.1 INTERMED CORONARY SYND 11/26/2014 [facility], LAZARO Olson Ot 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 MYOCARDIAL INFARCT 11/26/2014 [facility], LAZARO Olson Ot 414.00 CORON ATHEROSCLER NOS TYPE VESSEL, NATIV 11/26/2014 [facility], LAZARO Olson Ot 414.2 CHRONIC TOTAL OCCLUSION OF CORONARY SOFYA 11/26/2014 [facility], LAZARO Olson Ot 414.8 CHR ISCHEMIC HRT DIS NEC 11/26/2014 [facility], LAZARO Olsno Ot 493.20 CHRONIC OBSTRUCTIVE ASTHMA, NOS 11/26/2014 [facility], LAZARO Olson Ot 715.90 OSTEOARTHROS NOS-UNSPEC 11/26/2014 [facility], LAZARO Olson Ot 724.5 BACKACHE NOS 11/26/2014 [facility], LAZARO Olson Ot V12.54 PERSONAL HX OF [...] INDEX 40.0-44.9, ADULT 11/30/2014 GELLENDER DO, LAZARO Oslon Ot 272.0 11/30/2014 GELLENDER DO, LAZARO Olson [...] OF TEETH AND S 06/14/2015 JOS DIAS HEEL PRICKER Ot 401.9 06/14/2015 JOS DIAS HEEL PRICKER Ot 414.00 06/14/2015 JOS DIAS HEEL PRICKER Ot 429.9 06/14/2015 JOS DIAS HEEL PRICKER Ot V45.02 07/26/2015 KATHLEEN SWANSON FACC, ALI FACP CCDS Ot E66.01 MORBID (SEVERE) OBESITY DUE TO EXCESS CA 07/26/2015 KATHLEEN SWANSON FACC, ALI FACP CCDS Ot E78.5 HYPERLIPIDEMIA, UNSPECIFIED 07/26/2015 KATHLEEN SWANSON FACC, ALI FACP CCDS Ot F17.200 NICOTINE DEPENDENCE, UNSPECIFIED, UNCOMP 07/26/2015 KATHLEEN SWANSON FACC, ALFREDO FACP CCDS Ot I25.10 ATHSCL HEART DISEASE OF [place] CORONARY 07/26/2015 KATHLEEN SWANSON FACC, ALI FACP [...] FACC, ALI FACP CCDS Ot Z79.899 OTHER SHIP RIGGER (CURRENT) DRUG THERAPY 07/26/2015 KATHLEEN SWANSON FACC, ALI FACP CCDS Ot Z91.19 PATIENT'S NONCOMPLIANCE W [facility] TR 07/26/2015 KATHLEEN SWANSON FACC, ALI [...] INDEX 40.0-44.9, ADULT 03/22/2016 ARUN, JOS L HEEL PRICKER Ot R07.9 CHEST PAIN, UNSPECIFIED 04/19/2016 BAIMA, JOS L HEEL PRICKER Ot E78.4 OTHER HYPERLIPIDEMIA 04/19/2016 BAIMA, JOS L HEEL PRICKER Ot G47.33 OBSTRUCTIVE SLEEP APNEA (ADULT) (PEDIATR 04/19/2016 BAIMA, JOS L HEEL PRICKER Ot I25.10 ATHSCL HEART DISEASE OF [place] CORONARY 04/19/2016 BAIMA, JOS L HEEL PRICKER Ot I25.5 ISCHEMIC CARDIOMYOPATHY 04/19/2016 BAIMA, JOS L HEEL PRICKER Ot I65.23 OCCLUSION AND STENOSIS OF BILATERAL FISCHER 04/19/2016 IRINEOMA, JOS L HEEL PRICKER Ot J43.8 OTHER EMPHYSEMA 04/19/2016 BAIMA, JOS L HEEL PRICKER Ot R07.9 CHEST PAIN, UNSPECIFIED 04/19/2016 BAIMA, JOS L HEEL PRICKER Ot Z72.0 TOBACCO USE 05/01/2016 BAIMA, JOS L HEEL PRICKER Ot 401.9 HYPERTENSION NOS 05/01/2016 BAIMA, JOS L HEEL PRICKER Ot 414.00 CORON ATHEROSCLER NOS TYPE VESSEL, NATIV 05/01/2016 BAIMA, JOS L HEEL PRICKER Ot 429.9 HEART DISEASE NOS 05/01/2016 BAIMA, JOS L HEEL PRICKER Ot V45.02 AUTO IMPLANTABLE CARDIAC DEFIBRILLATOR I 05/01/2016 BAIMA, JOS L HEEL PRICKER Ot E78.4 OTHER HYPERLIPIDEMIA 05/01/2016 IRINEOJOS LIN HEEL PRICKER Ot G47.33 OBSTRUCTIVE SLEEP APNEA (ADULT) (PEDIATR 05/01/2016 JOS DIAS HEEL PRICKER Ot I25.10 ATHSCL HEART DISEASE OF [place] CORONARY 05/01/2016 IRINEOJOS LIN HEEL PRICKER Ot I25.5 ISCHEMIC CARDIOMYOPATHY 05/01/2016 IRINEOJOS LIN HEEL PRICKER Ot I65.23 OCCLUSION AND STENOSIS OF BILATERAL FISCHER 05/01/2016 IRINEODELIA JOS Rudd HEEL PRICKER Ot J43.8 OTHER EMPHYSEMA 05/01/2016 IRINEOJOS LIN HEEL PRICKER Ot R07.9 CHEST PAIN, UNSPECIFIED 05/01/2016 IRINEOJOS LIN HEEL PRICKER Ot Z72.0 TOBACCO USE 05/02/2016 KATHLEEN SWANSON FACC, ALI FACP CCDS Ot E78.5 HYPERLIPIDEMIA, UNSPECIFIED 05/02/2016 KATHLEEN SWANSON FACC, ALI FACP CCDS Ot G47.30 SLEEP APNEA, UNSPECIFIED 05/02/2016 KATHLEEN SWANSON FACC, ALI FACP CCDS Ot I25.119 ATHSCL HEART DISEASE OF [place] COR ART W 05/02/2016 KATHLEEN SWANSON FACC, [...] FACC, ALI FACP CCDS Ot Z79.899 OTHER RETIREMENT (CURRENT) DRUG THERAPY 05/02/2016 KATHLEEN SWANSON FACC, ALI FACP CCDS Ot Z91.19 PATIENT'S NONCOMPLIANCE W [facility] 05/02/2016 KATHLEEN SWANSON FACC, ALI FACP CCDS Ot Z95.810 PRESENCE OF AUTOMATIC (IMPLANTABLE) CARD 05/08/2016 JOS DIAS HEEL PRICKER Ot 401.9 HYPERTENSION NOS 05/08/2016 JOS DIAS HEEL PRICKER Ot 414.00 CORON ATHEROSCLER NOS TYPE VESSEL, NATIV 05/08/2016 JOS DIAS L HEEL PRICKER Ot 429.9 HEART DISEASE NOS 05/08/2016 JOS DIAS HEEL PRICKER Ot V45.02 AUTO IMPLANTABLE CARDIAC DEFIBRILLATOR I 05/08/2016 JOS DIAS HEEL PRICKER Ot E78.4 OTHER HYPERLIPIDEMIA 05/08/2016 BAIJOS LIN L HEEL PRICKER Ot G47.33 OBSTRUCTIVE SLEEP APNEA (ADULT) (PEDIATR 05/08/2016 JOS DIAS HEEL PRICKER Ot I25.10 ATHSCL HEART DISEASE OF [place] CORONARY 05/08/2016 BAIJOS LIN L HEEL PRICKER Ot I25.5 ISCHEMIC CARDIOMYOPATHY 05/08/2016 JOS DIAS HEEL PRICKER Ot I65.23 OCCLUSION AND STENOSIS OF BILATERAL FISCHER 05/08/2016 JOS DIAS HEEL PRICKER Ot J43.8 OTHER EMPHYSEMA 05/08/2016 JOS DIAS HEEL PRICKER Ot R07.9 CHEST PAIN, UNSPECIFIED 05/08/2016 IRINEOJOS LIN L HEEL PRICKER Ot Z72.0 TOBACCO USE 05/08/2016 VELMA LAZARO Wesley Ot M54.32 SCIATICA, LEFT SIDE 05/08/2016 KATHLEEN SWANSON FACC, ALI FACP CCDS Ot E78.5 HYPERLIPIDEMIA, UNSPECIFIED 05/08/2016 KATHLEEN SWANSON FACC, ALI FACP CCDS Ot G47.30 SLEEP APNEA, UNSPECIFIED 05/08/2016 KATHLEEN SWANSON FACC, ALI FACP CCDS Ot I25.119 ATHSCL HEART DISEASE OF [place] COR ART W 05/08/2016 KATHLEEN SWANSON FACC, [...] FACC, ALI FACP CCDS Ot Z79.899 OTHER SHIP RIGGER (CURRENT) DRUG THERAPY 05/08/2016 KATHLEEN SWANSON FACC, ALI FACP CCDS Ot Z91.19 PATIENT'S NONCOMPLIANCE W [facility] TR 05/08/2016 KATHLEEN SWANOSN FACC, ALI FACP CCDS Ot Z95.810 PRESENCE OF AUTOMATIC (IMPLANTABLE) CARD 05/10/2016 KATHLEEN SWANSON FACC ALI FACP CCDS Ot E78.5 HYPERLIPIDEMIA, UNSPECIFIED 05/10/2016 KATHLEEN SWANSON FACC, ALI FACP CCDS Ot G47.30 SLEEP APNEA, UNSPECIFIED 05/10/2016 KATHLEEN SWANSON FACC, ALI FACP CCDS Ot I25.119 ATHSCL HEART DISEASE OF [place] COR ART W 05/10/2016 KATHLEEN SWANSON FACC [...] FACC, ALI FACP CCDS Ot Z79.899 OTHER SHIP RIGGER (CURRENT) DRUG THERAPY 05/10/2016 KATHLEEN SWANSON FACC, ALI FACP CCDS Ot Z91.19 PATIENT'S NONCOMPLIANCE W [facility] TR 05/10/2016 KATHLEEN SWANSON FACC, ALI FACP CCDS Ot Z95.810 PRESENCE OF AUTOMATIC (IMPLANTABLE) CARD 05/11/2016 ALFREDO WANG MD, FACC FACP CCDS Ot E78.5 HYPERLIPIDEMIA, UNSPECIFIED 05/11/2016 KATHLEEN SWANSON FACC, ALI FACP CCDS Ot G47.30 SLEEP APNEA, UNSPECIFIED 05/11/2016 KATHLEEN SWANSON FACC, ALI FACP CCDS Ot I25.119 ATHSCL HEART DISEASE OF [place] COR ART W 05/11/2016 KATHLEEN SWANSON FACC, [...] FACC, ALFREDO FACP CCDS Ot Z79.899 OTHER SHIP RIGGER (CURRENT) DRUG THERAPY 05/11/2016 KATHLEEN SWANSON FACC, ALFREDO PATTERSONP CCDS Ot Z91.19 PATIENT'S NONCOMPLIANCE W [facility] TR 05/11/2016 ALFREDO WANG MD, FACC FACP CCDS Ot Z95.810 PRESENCE OF AUTOMATIC (IMPLANTABLE) CARD 05/25/2016 VELMA SANCHEZ, LAZARO Olson Ot M54.32 SCIATICA, LEFT SIDE 06/14/2016 VLEMA SANCHEZ LAZARO A Ot M54.32 SCIATICA, LEFT SIDE 07/04/2016 GELLENDER DO, LAZARO A Ot M54.32 SCIATICA, LEFT SIDE 07/14/2016 ALLYN BIRDP Ot I10 ESSENTIAL (PRIMARY) HYPERTENSION 07/14/2016 ALLYN BIRD HEEL PRICKER Ot I25.10 ATHSCL HEART DISEASE OF [place] CORONARY 07/14/2016 ALLYN BIRD HEEL PRICKER Ot J44.9 CHRONIC OBSTRUCTIVE PULMONARY DISEASE, U 07/14/2016 ALLYN BIRD HEEL PRICKER Ot M47.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, DIONTE 07/14/2016 ALLYN BIRD HEEL PRICKER Ot M48.06 SPINAL STENOSIS, LUMBAR REGION 07/14/2016 ALLYN BIRD HEEL PRICKER Ot M54.41 LUMBAGO WITH SCIATICA, RIGHT SIDE 07/14/2016 ALLYN BIRD HEEL PRICKER Ot Z79.02 RETIREMENT (CURRENT) USE OF ANTITHROMBOTI 07/14/2016 ALLYN BIRDP Ot Z79.82 RETIREMENT (CURRENT) USE OF ASPIRIN 07/14/2016 ALLYN BIRDP Ot Z79.899 OTHER SHIP RIGGER (CURRENT) DRUG THERAPY 07/14/2016 MARGE, ALLYN HEEL PRICKER Ot Z95.0 PRESENCE OF CARDIAC PACEMAKER 07/14/2016 MARGE, ALLYN HEEL PRICKER Ot Z95.5 PRESENCE OF CORONARY ANGIOPLASTY IMPLANT 07/16/2016 MARGE, ALLYN HEEL PRICKER Ot I10 ESSENTIAL (PRIMARY) HYPERTENSION 07/16/2016 MARGE, ALLYN HEEL PRICKER Ot I25.10 ATHSCL HEART DISEASE OF [place] CORONARY 07/16/2016 MARGE, ALLYN HEEL PRICKER Ot J44.9 CHRONIC OBSTRUCTIVE PULMONARY DISEASE, U 07/16/2016 MARGE ALLYN HEEL PRICKER Ot M47.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, DIONTE 07/16/2016 MARGE, ALLYN HEEL PRICKER Ot M48.06 SPINAL STENOSIS, LUMBAR REGION 07/16/2016 MARGE, ALLYN HEEL PRICKER Ot M54.41 LUMBAGO WITH SCIATICA, RIGHT SIDE 07/16/2016 MARGE ALLYN HEEL PRICKER Ot Z79.02 RETIREMENT (CURRENT) USE OF ANTITHROMBOTI 07/16/2016 MARGE, ALLYN HEEL PRICKER Ot Z79.82 RETIREMENT (CURRENT) USE OF ASPIRIN 07/16/2016 MARGE, ALLYN HEEL PRICKER Ot Z79.899 OTHER SHIP RIGGER (CURRENT) DRUG THERAPY 07/16/2016 MARGE ALLYN HEEL PRICKER Ot Z95.0 PRESENCE OF CARDIAC PACEMAKER 07/16/2016 MARGE, ALLYN HEEL PRICKER Ot Z95.5 PRESENCE OF CORONARY ANGIOPLASTY IMPLANT 07/21/2016 MARGE ALLYN HEEL PRICKER Ot I10 ESSENTIAL (PRIMARY) HYPERTENSION 07/21/2016 MARGE ALLYN HEEL PRICKER Ot I25.10 ATHSCL HEART DISEASE OF [place] CORONARY 07/21/2016 MARGE ALLYN HEEL PRICKER Ot J44.9 CHRONIC OBSTRUCTIVE PULMONARY DISEASE, U 07/21/2016 MARGE ALLYN HEEL PRICKER Ot M47.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, DIONTE 07/21/2016 MARGE ALLYN HEEL PRICKER Ot M48.06 SPINAL STENOSIS, LUMBAR REGION 07/21/2016 MARGE, ALLYN HEEL PRICKER Ot M54.41 LUMBAGO WITH SCIATICA, RIGHT SIDE 07/21/2016 MARGE, ALLYN HEEL PRICKER Ot Z79.02 SHIP RIGGER (CURRENT) USE OF ANTITHROMBOTI 07/21/2016 MARGE, ALLNY HEEL PRICKER Ot Z79.82 RETIREMENT (CURRENT) USE OF ASPIRIN 07/21/2016 MARGE, ALLYN HEEL PRICKER Ot Z79.899 OTHER SHIP RIGGER (CURRENT) DRUG THERAPY 07/21/2016 ALLYN BIRD HEEL PRICKER Ot Z95.0 PRESENCE OF CARDIAC PACEMAKER 07/21/2016 MARGEALLYN Powell HEEL PRICKER Ot Z95.5 PRESENCE OF CORONARY ANGIOPLASTY IMPLANT 12/25/2016 KATHLEEN SWANSON FACC, ALI FACP CCDS Ot I25.10 ATHSCL HEART DISEASE OF [place] CORONARY 12/26/2016 KATHLEEN SWANSON FACC, ALI FACP [...] CCDS Ot I25.10 ATHSCL HEART DISEASE OF [place] CORONARY 12/26/2016 KATHLEEN SWANSON FACC, ALI FACP [...] CCDS Ot I25.10 ATHSCL HEART DISEASE OF [place] CORONARY 01/21/2017 KATHLEEN PATTERSONC, ALI FACP CCDS Ot I25.5 ISCHEMIC CARDIOMYOPATHY 01/21/2017 KATHLEEN PATTERSONC, ALI FACP CCDS Ot I65.23 OCCLUSION AND STENOSIS OF BILATERAL FISCHER 01/21/2017 KATHLEEN SWANSON FACC, ALI FACP CCDS Ot J43.8 OTHER EMPHYSEMA 01/21/2017 KATHLEEN SWANSON FACC, ALI FACP CCDS Ot Z72.0 TOBACCO USE 01/21/2017 VELMA SANHCEZ LAZARO Wesley Ot M50.321 OTHER CERVICAL DISC DEGENERATION AT C4-C 01/23/2017 KATHLEEN SWANSON FACC, ALI FACP CCDS Ot E78.5 HYPERLIPIDEMIA, UNSPECIFIED 01/23/2017 KATHLEEN SWANSON FACC, ALI FACP CCDS Ot G47.30 SLEEP APNEA, UNSPECIFIED 01/23/2017 KATHLEEN SWANSON FACC, ALI FACP CCDS Ot I25.110 ATHSCL HEART DISEASE OF [place] COR ART W 01/23/2017 KATHLEEN SWANSON FACC, ALI FACP CCDS Ot J44.9 CHRONIC OBSTRUCTIVE PULMONARY DISEASE, U 01/23/2017 KATHLEEN SWANSON FACC, ALI FACP CCDS Ot T82.857A STENOSIS OF OTHER CARDIAC PROSTH DEV/GRF 01/23/2017 KATHLEEN SWANSON FACC, ALI FACP CCDS Ot Z72.0 TOBACCO USE 01/23/2017 KATHLEEN SWANSON FACC, ALI FACP CCDS Ot Z79.899 OTHER SHIP RIGGER (CURRENT) DRUG THERAPY 01/23/2017 KATHLEEN SWANSON FACC, ALI FACP CCDS Ot Z91.19 PATIENT'S NONCOMPLIANCE W [facility] MED[facility] TR 01/23/2017 KATHLEEN SWANSON FACC, ALI FACP CCDS Ot Z95.1 PRESENCE OF AORTOCORONARY BYPASS GRAFT 01/23/2017 KATHLEEN SWANSON FACC, ALI FACP CCDS Ot Z95.810 PRESENCE OF AUTOMATIC (IMPLANTABLE) CARD 12/10/2017 JOS DIAS HEEL PRICKER Ot 401.9 HYPERTENSION NOS 12/10/2017 JOS DIAS HEEL PRICKER Ot 414.00 CORON ATHEROSCLER NOS TYPE VESSEL, NATIV 12/10/2017 JOS DIAS L HEEL PRICKER Ot 429.9 HEART DISEASE NOS 12/10/2017 JOS DIAS HEEL PRICKER Ot V45.02 AUTO IMPLANTABLE CARDIAC DEFIBRILLATOR I 12/10/2017 JOS DIAS HEEL PRICKER Ot E78.4 OTHER HYPERLIPIDEMIA 12/10/2017 JOS DIAS L HEEL PRICKER Ot G47.33 OBSTRUCTIVE SLEEP APNEA (ADULT) (PEDIATR 12/10/2017 JOS DIAS L HEEL PRICKER Ot I25.10 ATHSCL HEART DISEASE OF [place] CORONARY 12/10/2017 JOS DIAS L HEEL PRICKER Ot I25.5 ISCHEMIC CARDIOMYOPATHY 12/10/2017 JOS DIAS HEEL PRICKER Ot I65.23 OCCLUSION AND STENOSIS OF BILATERAL FISCHER 12/10/2017 JOS DIAS HEEL PRICKER Ot J43.8 OTHER EMPHYSEMA 12/10/2017 JOS DIAS HEEL PRICKER Ot R07.9 CHEST PAIN, UNSPECIFIED 12/10/2017 JOS DIAS HEEL PRICKER Ot Z72.0 TOBACCO USE 12/10/2017 LAZARO CARREON DO A Ot M54.32 SCIATICA, LEFT SIDE 12/10/2017 [facility] DO, LAZARO A Ot M54.32 SCIATICA, LEFT SIDE 12/10/2017 KATHLEEN SWANSON FACC, ALI FACP CCDS Ot E66.09 OTHER OBESITY DUE TO EXCESS CALORIES 12/10/2017 KATHLEEN SWANSON FACC, ALI FACP CCDS Ot E78.4 OTHER HYPERLIPIDEMIA 12/10/2017 KATHLEEN SWANSON FACC, ALI FACP CCDS Ot G47.33 OBSTRUCTIVE SLEEP APNEA (ADULT) (PEDIATR 12/10/2017 KATHLEEN SWANSON FACC, ALI FACP CCDS Ot G89.4 CHRONIC PAIN SYNDROME 12/10/2017 KATHLEEN SWANSON FACC, ALI FACP CCDS Ot I25.10 ATHSCL HEART DISEASE OF [place] CORONARY 12/10/2017 KATHLEEN SWANSON FACC, ALI FACP CCDS Ot I25.5 ISCHEMIC CARDIOMYOPATHY 12/10/2017 KATHLEEN SWANSON FACC, ALI FACP CCDS Ot I65.23 OCCLUSION AND STENOSIS OF BILATERAL FISCHER 12/10/2017 KATHLEEN SWANSON FACC, ALI FACP CCDS Ot J43.8 OTHER EMPHYSEMA 12/10/2017 KATHLEEN SWANSON FACC, ALI FACP CCDS Ot Z72.0 TOBACCO USE 12/10/2017 LAZARO CARREON DO Ot M50.321 OTHER CERVICAL DISC DEGENERATION AT C4-C 12/11/2017 KATHLEEN SWANSON FACC, ALI FACP CCDS Ot E66.01 MORBID (SEVERE) OBESITY DUE TO EXCESS CA 12/11/2017 KATHLEEN SWANSON FACC, ALI FACP CCDS Ot E78.5 HYPERLIPIDEMIA, UNSPECIFIED 12/11/2017 KATHLEEN SWANSON FACC, ALI FACP CCDS Ot F17.210 NICOTINE DEPENDENCE, CIGARETTES, UNCOMPL 12/11/2017 KATHLEEN SWANSON FACC, ALI FACP CCDS Ot G47.33 OBSTRUCTIVE SLEEP APNEA (ADULT) (PEDIATR 12/11/2017 KATHLEEN SWANSON FACC, ALFREDO FACP CCDS Ot I25.10 ATHSCL HEART DISEASE OF [place] CORONARY 12/11/2017 KATHLEEN SWANSON FACC, ALFREDO FACP CCDS Ot I25.5 ISCHEMIC CARDIOMYOPATHY 12/11/2017 KATHLEEN SWANSON FACC, ALI FACP CCDS Ot J44.9 CHRONIC OBSTRUCTIVE PULMONARY DISEASE, U 12/11/2017 KATHLEEN SWANSON FACC, ALI FACP CCDS Ot J45.909 UNSPECIFIED ASTHMA, UNCOMPLICATED 12/11/2017 KATHLEEN SWANSON FACC, ALI FACP CCDS Ot R56.9 UNSPECIFIED CONVULSIONS 12/11/2017 KATHLEEN SWANSON FACC, ALI FACP CCDS Ot Z68.41 BODY MASS INDEX (BMI) 40.0-44.9, ADULT 12/11/2017 KATHLEEN SWANSON FACC, ALI FACP CCDS Ot Z79.02 RETIREMENT (CURRENT) USE OF ANTITHROMBOTI 12/11/2017 ALFREDO WANG MD, FACC FACP CCDS Ot Z79.82 RETIREMENT (CURRENT) USE OF ASPIRIN 12/11/2017 KATHLEEN SWANSON FACC, ALFREDO FACP CCDS Ot Z79.899 OTHER SHIP RIGGER (CURRENT) DRUG THERAPY 12/11/2017 KATHLEEN SWANSON FACC, ALFREDO FACP CCDS Ot Z91.14 PATIENT'S OTHER NONCOMPLIANCE WITH MEDIC 12/11/2017 ALFREDO WANG MD, FACC FACP CCDS Ot Z95.0 PRESENCE OF CARDIAC PACEMAKER 12/11/2017 KATHLEEN SWANSON FACC, ALFREDO FACP CCDS Ot Z95.5 PRESENCE OF CORONARY ANGIOPLASTY IMPLANT 12/11/2017 KATHLEEN SWANSON FACC, ALFREDO FACP CCDS Ot Z95.810 PRESENCE OF AUTOMATIC (IMPLANTABLE) CARD 12/12/2017 ALFREDO WANG MD, FACC FACP CCDS Ot E66.01 MORBID (SEVERE) OBESITY DUE TO EXCESS CA 12/12/2017 KATHLEEN SWANSON FACC, ALFREDO FACP CCDS Ot E78.5 HYPERLIPIDEMIA, UNSPECIFIED 12/12/2017 KATHLEEN SWANSON FACC, ALI FACP CCDS Ot F17.210 NICOTINE DEPENDENCE, CIGARETTES, UNCOMPL 12/12/2017 KATHLEEN SWANSON FACC, ALI FACP CCDS Ot G47.33 OBSTRUCTIVE SLEEP APNEA (ADULT) (PEDIATR 12/12/2017 KATHLEEN SWANSON FACC, ALI FACP CCDS Ot I25.10 ATHSCL HEART DISEASE OF [place] CORONARY 12/12/2017 KATHLEEN SWANSON FACC, ALFREDO FACP CCDS Ot I25.5 ISCHEMIC CARDIOMYOPATHY 12/12/2017 KATHLEEN SWANSON FACC, ALFREDO FACP CCDS Ot J44.9 CHRONIC OBSTRUCTIVE PULMONARY DISEASE, U 12/12/2017 KATHLEEN SWANSON FACC, ALI FACP CCDS Ot J45.909 UNSPECIFIED ASTHMA, UNCOMPLICATED 12/12/2017 KATHLEEN SWANSON FACC, ALFREDO FACP CCDS Ot R56.9 UNSPECIFIED CONVULSIONS 12/12/2017 KATHLEEN SWANSON FACC, ALFREDO FACP CCDS Ot Z68.41 BODY MASS INDEX (BMI) 40.0-44.9, ADULT 12/12/2017 ALFREDO WANG MD, FACC FACP CCDS Ot Z79.02 SHIP RIGGER (CURRENT) USE OF ANTITHROMBOTI 12/12/2017 ALFREDO WANG MD, FACC FACP CCDS Ot Z79.82 RETIREMENT (CURRENT) USE OF ASPIRIN 12/12/2017 ALFREDO WANG MD, FACC FACP CCDS Ot Z79.899 OTHER RETIREMENT (CURRENT) DRUG THERAPY 12/12/2017 ALFREDO WANG MD, FACC FACP CCDS Ot Z91.14 PATIENT'S OTHER NONCOMPLIANCE WITH MEDIC 12/12/2017 ALFREDO WANG MD, FACC FACP CCDS Ot Z95.5 PRESENCE OF CORONARY ANGIOPLASTY IMPLANT 12/12/2017 ALFREDO WANG MD, FACC FACP CCDS Ot Z95.810 PRESENCE OF AUTOMATIC (IMPLANTABLE) CARD 03/19/2018 DESHAWN DING DO Ot E78.00 PURE HYPERCHOLESTEROLEMIA, UNSPECIFIED 03/19/2018 FREDERICK DING DOA K Ot F17.290 NICOTINE DEPENDENCE, OTHER TOBACCO PRODU 03/19/2018 TOÑA SANCHEZ DESHAWN K Ot I10 ESSENTIAL (PRIMARY) HYPERTENSION 03/19/2018 FREDERICK DING DOA K Ot I25.10 ATHSCL HEART DISEASE OF [place] CORONARY 03/19/2018 FREDERICK DING DOA K Ot I25.2 OLD MYOCARDIAL INFARCTION 03/19/2018 FREDERICK DING DOA K Ot J32.9 CHRONIC SINUSITIS, UNSPECIFIED 03/19/2018 FREDERICK DING DOA K Ot J44.9 CHRONIC OBSTRUCTIVE PULMONARY DISEASE, U 03/19/2018 FREDERICK DING DOA K Ot K04.7 PERIAPICAL ABSCESS WITHOUT SINUS 03/19/2018 TOÑA DESHAWN Miguel Ot K05.219 AGGRESSIVE PERIODONTITIS, LOCALIZED, UNS 03/19/2018 TOÑA DESHAWN K Ot Z79.82 RETIREMENT (CURRENT) USE OF ASPIRIN 03/19/2018 TOÑA DESHAWN Miguel Ot Z86.73 PRSNL HX OF TIA (TIA), AND CEREB INFRC W 03/19/2018 TOÑA DESHAWN K Ot Z88.0 ALLERGY STATUS TO PENICILLIN 03/19/2018 TOÑA FREDERICKA Miguel Ot Z88.6 ALLERGY STATUS TO ANALGESIC AGENT STATUS 03/19/2018 TOÑA SANCHEZDESHAWN Ot Z90.89 ACQUIRED ABSENCE OF OTHER ORGANS 03/19/2018 TOÑA DESHAWN Ot Z95.1 PRESENCE OF AORTOCORONARY BYPASS GRAFT 03/19/2018 TOÑA DESHAWN Ot Z95.810 PRESENCE OF AUTOMATIC (IMPLANTABLE) CARD 03/21/2018 TOÑA DESHAWN Ot E78.00 PURE HYPERCHOLESTEROLEMIA, UNSPECIFIED 03/21/2018 TOÑA DODESHAWN Ot F17.290 NICOTINE DEPENDENCE, OTHER TOBACCO PRODU 03/21/2018 TOÑA DO DESHAWN K Ot I10 ESSENTIAL (PRIMARY) HYPERTENSION 03/21/2018 TOÑA DESHAWN Miguel Ot I25.10 ATHSCL HEART DISEASE OF [place] CORONARY 03/21/2018 TOÑA SANCHEZ DESHAWN Miguel Ot I25.2 OLD MYOCARDIAL INFARCTION 03/21/2018 DESHAWN DING DO Ot J32.9 CHRONIC SINUSITIS, UNSPECIFIED 03/21/2018 TOÑA DESHAWN Ot J44.9 CHRONIC OBSTRUCTIVE PULMONARY DISEASE, U 03/21/2018 TOÑA DESHAWN K Ot K04.7 PERIAPICAL ABSCESS WITHOUT SINUS 03/21/2018 TOÑA SANCHEZ DESHAWN Miguel Ot K05.219 AGGRESSIVE PERIODONTITIS, LOCALIZED, UNS 03/21/2018 TOÑA DESHAWN K Ot Z79.82 RETIREMENT (CURRENT) USE OF ASPIRIN 03/21/2018 DESHAWN DING DO Ot Z86.73 PRSNL HX OF TIA (TIA), AND CEREB INFRC W 03/21/2018 TOÑA DESHAWN Ot Z88.0 ALLERGY STATUS TO PENICILLIN 03/21/2018 FREDERICK DING DOA Miguel Ot Z88.6 ALLERGY STATUS TO ANALGESIC AGENT STATUS 03/21/2018 DESHAWN DING DO Ot Z90.89 ACQUIRED ABSENCE OF OTHER ORGANS 03/21/2018 DESHAWN DING DO Ot Z95.1 PRESENCE OF AORTOCORONARY BYPASS GRAFT 03/21/2018 DESHAWN DING DO Ot Z95.810 PRESENCE OF AUTOMATIC (IMPLANTABLE) CARD 05/26/2018 BAIMA, JOS L HEEL PRICKER Ot 401.9 HYPERTENSION NOS 05/26/2018 BAIMA, JOS L HEEL PRICKER Ot 414.00 CORON ATHEROSCLER NOS TYPE VESSEL, NATIV 05/26/2018 BAIMA, JOS L HEEL PRICKER Ot 429.9 HEART DISEASE NOS 05/26/2018 BAIMA, JOS L HEEL PRICKER Ot V45.02 AUTO IMPLANTABLE CARDIAC DEFIBRILLATOR I 05/26/2018 BAIMA, JOS L HEEL PRICKER Ot E78.4 OTHER HYPERLIPIDEMIA 05/26/2018 BAIMA, JOS L HEEL PRICKER Ot G47.33 OBSTRUCTIVE SLEEP APNEA (ADULT) (PEDIATR 05/26/2018 BAIMA, JOS L HEEL PRICKER Ot I25.10 ATHSCL HEART DISEASE OF [place] CORONARY 05/26/2018 BAIMA, JOS L HEEL PRICKER Ot I25.5 ISCHEMIC CARDIOMYOPATHY 05/26/2018 BAIMA, JOS L HEEL PRICKER Ot I65.23 OCCLUSION AND STENOSIS OF BILATERAL FISCHER 05/26/2018 BAIMA, JOS L HEEL PRICKER Ot J43.8 OTHER EMPHYSEMA 05/26/2018 BAIMA, JOS L HEEL PRICKER Ot R07.9 CHEST PAIN, UNSPECIFIED 05/26/2018 IRINEOMA, JOS L HEEL PRICKER Ot Z72.0 TOBACCO USE 05/26/2018 LAZARO CARREON DO Ot M54.32 SCIATICA, LEFT SIDE 05/26/2018 LAZARO CARREON DO Ot M54.32 SCIATICA, LEFT SIDE 05/26/2018 KATHLEEN SWANSON FACC, ALI FACP CCDS Ot E66.09 OTHER OBESITY DUE TO EXCESS CALORIES 05/26/2018 KATHLEEN SWANSON FACC, ALFREDO FACP CCDS Ot E78.4 OTHER HYPERLIPIDEMIA 05/26/2018 KATHLEEN SWANSON FACC, ALFREDO FACP CCDS Ot G47.33 OBSTRUCTIVE SLEEP APNEA (ADULT) (PEDIATR 05/26/2018 KATHLEEN SWANSON FACC, ALFREDO FACP CCDS Ot G89.4 CHRONIC PAIN SYNDROME 05/26/2018 KATHLEEN SWANSON FACC, [facility] CCDS Ot I25.10 ATHSCL HEART DISEASE OF [place] CORONARY 05/26/2018 KATHLEEN SWANOSN FACC, ALI FACP CCDS Ot I25.5 ISCHEMIC CARDIOMYOPATHY 05/26/2018 KATHLEEN SWANSON FACC, ALI FACP CCDS Ot I65.23 OCCLUSION AND STENOSIS OF BILATERAL [place]CHER 05/26/2018 KATHLEEN PATTERSON, ALI FACP CCDS Ot J43.8 OTHER EMPHYSEMA 05/26/2018 KATHLEEN PATTERSON, ALI FACP CCDS Ot Z72.0 TOBACCO USE 05/26/2018 GELLENDER DO, LAZARO Olson Ot M50.321 OTHER CERVICAL DISC DEGENERATION AT C4-C 05/27/2018 GELLENDER DO, LAZARO Olson Ot I51.7 CARDIOMEGALY 05/27/2018 GELLENDER DO, LAZARO Olson Ot R04.2 HEMOPTYSIS 06/18/2018 GELLENDER DO, LAZARO Olson Ot I51.7 CARDIOMEGALY 06/18/2018 GELLENDER DO, LAZARO Olson Ot R04.2 HEMOPTYSIS 07/11/2018 GELLENDER DO, LAZARO Olson Ot F17.200 NICOTINE DEPENDENCE, UNSPECIFIED, UNCOMP 07/11/2018 GELLENDER DO, LAZARO Olson Ot I25.10 ATHSCL HEART DISEASE OF [place] CORONARY 07/11/2018 GELLENDER DO, LAZARO Olson Ot J44.9 CHRONIC OBSTRUCTIVE PULMONARY DISEASE, U 07/11/2018 GELLENDER DO, LAZARO Olson Ot R04.2 HEMOPTYSIS 07/16/2018 GELLENDER DO, LAZARO Olson Ot F17.200 NICOTINE DEPENDENCE, UNSPECIFIED, UNCOMP 07/16/2018 GELLENDER DO, LAZARO Olson Ot I25.10 ATHSCL HEART DISEASE OF [place] CORONARY 07/16/2018 GELLENDER DO, LAZARO Olson Ot J44.9 CHRONIC OBSTRUCTIVE PULMONARY DISEASE, U 07/16/2018 GELLENDER DO, LAZARO Olson Ot R04.2 HEMOPTYSIS 08/04/2018 GELLENDER DO, LAZARO Olson Ot F17.200 NICOTINE DEPENDENCE, UNSPECIFIED, UNCOMP 08/04/2018 GELLENDER DO, LAZARO Olson Ot I25.10 ATHSCL HEART DISEASE OF [place] CORONARY 08/04/2018 GELLENDER DO, LAZARO Olson Ot J44.9 CHRONIC OBSTRUCTIVE PULMONARY DISEASE, U 08/04/2018 GELLENDER DO, LAZARO A Ot R04.2 HEMOPTYSIS 08/11/2018 KATHLEEN SWANSON FACC, ALFREDO FACP CCDS Ot 272.4 HYPERLIPIDEMIA NEC/NOS 08/11/2018 KATHLEEN SWANSON FACC, ALFREDO FACP CCDS Ot 278.01 MORBID OBESITY 08/11/2018 KATHLEEN SWANSON FACC, ALI FACP CCDS Ot 327.23 OBSTRUCTIVE SLEEP APNEA (ADULT) (PEDIATR 08/11/2018 KATHLEEN SWANSON FACC, ALFREDO FACP CCDS Ot 414.00 CORON ATHEROSCLER NOS TYPE VESSEL, NATIV 08/11/2018 KATHLEEN SWANSON FACC, ALFREDO FACP CCDS Ot 429.9 HEART DISEASE NOS 08/11/2018 KATHLEEN SWANSON FACC, ALFREDO FACP CCDS Ot 496 CHR AIRWAY OBSTRUCT NEC 08/11/2018 KATHLEEN SWANSON FACC, ALFREDO FACP CCDS Ot V85.41 BODY MASS INDEX 40.0-44.9, ADULT Procedures Code Description Performed By Performed On G0008 FLU ADMINISTRATION ( MEDICARE ONLY) 06/24/2012 Q2038 FLUZONE (MEDICARE OFFICE VISIT ONLY) 06/24/2012 32032 EKG, TRACING (IN-HOUSE) 06/27/2012 00826 OXIMETRY - OVERNIGHT 04/15/2013 16021 PULMONARY FUNCTION TEST (IN- HOUSE) 04/17/2013 54663 RESPIRATORY FLOW VOLUME LOOP 04/17/2013 52764 PULMONARY EDUCATION 04/17/2013 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 04/17/2013 23966 OXIMETRY - OVERNIGHT 04/29/2013 99845 SLEEP STUDY 04/29/2013 62649 OXIMETRY - OVERNIGHT 07/01/2013 65949 URINE DRUG SCREEN (IN-HOUSE ) 11/10/2013 18051 GLUCOSE FINGER STICK 11/10/2013 54969 A1C (IN-HOUSE) 11/10/2013 60766 AMERITOX 03/22/2014 00.47 INSERTION OF THREE VASCULAR STENTS 11/25/2014 00.66 PERCUTANEOUS TRANSLUMINAL CORONARY ANGIO 11/25/2014 36.07 INSRT OF DRUG-ELUTING CORON ARTERY STENT 11/25/2014 37.22 LEFT HEART CARDIAC CATH 11/25/2014 88.49 CONTRAST ARTERIOGRAM NEC 11/25/2014 88.53 LT HEART ANGIOCARDIOGRAM 11/25/2014 88.56 CORONAR ARTERIOGR-2 CATH 11/25/2014 Results Test Result Range Automated blood [...] plasma calcium measurement (mass/volume) 8.7 mg/dL 8.5-10.1 Automated blood complete blood count (hemogram) panel - 12/10/17 08:45 Blood leukocytes automated count (number/volume) 5.9 10*3/uL 4.3-11.0 Blood erythrocytes automated count (number/volume) 4.19 10*6/uL 4.35-5.85 Venous blood hemoglobin measurement (mass/volume) 13.1 g/dL 13.3-17.7 Blood hematocrit (volume fraction) 38 % 40-54 Automated erythrocyte mean corpuscular volume 91 [foz_us] 80-99 Automated erythrocyte mean corpuscular hemoglobin (mass per erythrocyte) 31 pg 25-34 Automated erythrocyte mean corpuscular hemoglobin concentration measurement ( mass/volume) 35 g/dL 32-36 Automated erythrocyte distribution width ratio 13.5 % 10.0-14.5 Automated blood platelet count (count/volume) 202 10*3/uL 130-400 Automated blood platelet mean volume measurement 10.6 [foz_us] 7.4-10.4 PT panel in platelet poor plasma by coagulation assay - 12/10/17 08:45 Prothrombin time (PT) in platelet poor plasma by coagulation assay 12.8 s 12.2-14.7 INR in platelet poor plasma or blood by coagulation assay 1.0 0.8-1.4 Activated partial thromboplastin time (aPTT) in platelet poor plasma bycoagulation assay - 12/10/17 08:45 Activated partial thromboplastin time (aPTT) in platelet poor plasma bycoagulation assay 28 s 24-35 Comprehensive metabolic panel - 12/10/17 08:45 Serum or plasma sodium measurement (moles/volume) 138 mmol/L 135-145 Serum or plasma potassium measurement (moles/volume) 4.3 mmol/L 3.6-5.0 Serum or plasma chloride measurement (moles/volume) 105 mmol/L 98-107 Carbon dioxide 23 mmol/L 21-32 Serum or plasma anion gap determination (moles/volume) 10 mmol/L 5-14 Serum or plasma urea nitrogen measurement (mass/volume) 13 mg/dL 7-18 Serum or plasma creatinine measurement (mass/volume) 0.90 mg/dL 0.60-1.30 Serum or plasma urea nitrogen/creatinine mass ratio 14 NRG Serum or plasma creatinine measurement with calculation of estimated glomerular filtration rate > NRG Serum or plasma glucose measurement (mass/volume) 108 mg/dL 70-105 Serum or plasma calcium measurement (mass/volume) 8.9 mg/dL 8.5-10.1 Serum or plasma total bilirubin measurement (mass/volume) 0.4 mg/dL 0.1-1.0 Serum or plasma alkaline phosphatase measurement (enzymatic activity/volume) 59 U/L 40-136 Serum or plasma aspartate aminotransferase measurement (enzymatic activity/ volume) 21 U/L 5-34 Serum or plasma alanine aminotransferase measurement (enzymatic activity/volume ) 19 U/L 0-55 Serum or plasma protein measurement (mass/volume) 6.6 g/dL 6.4-8.2 Serum or plasma albumin measurement (mass/volume) 4.0 g/dL 3.2-4.5 Lipid 1996 panel - 12/10/17 08:45 Serum or plasma triglyceride measurement (mass/volume) 181 mg/dL <150 Serum or plasma cholesterol measurement (mass/volume) 250 mg/dL < 200 Serum or plasma cholesterol in HDL measurement (mass/volume) 39 mg/ dL 40-60 Cholesterol in LDL [mass/volume] in serum or plasma by direct assay 161 mg/dL 1-129 Serum or plasma cholesterol in VLDL measurement (mass/volume) 36 mg/ dL 5-40 Methicillin resistant Staphylococcus aureus (MRSA) screening culture - 08:45 Methicillin resistant Staphylococcus aureus (MRSA) screening culture NEG NRG Automated blood complete blood count (hemogram) panel - 12/11/17 03:10 Blood leukocytes automated count (number/volume) 5.9 10*3/uL 4.3-11.0 Blood erythrocytes automated count (number/volume) 4.17 10*6/uL 4.35-5.85 Venous blood hemoglobin measurement (mass/volume) 12.8 g/dL 13.3-17.7 Blood hematocrit (volume fraction) 38 % 40-54 Automated erythrocyte mean corpuscular volume 92 [foz_us] 80-99 Automated erythrocyte mean corpuscular hemoglobin (mass per erythrocyte) 31 pg 25-34 Automated erythrocyte mean corpuscular hemoglobin concentration measurement ( mass/volume) 34 g/dL 32-36 Automated erythrocyte distribution width ratio 13.7 % 10.0-14.5 Automated blood platelet count (count/volume) 210 10*3/uL 130-400 Automated blood platelet mean volume measurement 10.4 [foz_us] 7.4-10.4 Whole blood basic metabolic panel - 12/11/17 03:10 Serum or plasma sodium measurement (moles/volume) 139 mmol/L 135-145 Serum or plasma potassium measurement (moles/volume) 4.6 mmol/L 3.6-5.0 Serum or plasma chloride measurement (moles/volume) 106 mmol/L 98-107 Carbon dioxide 26 mmol/L 21-32 Serum or plasma anion gap determination (moles/volume) 7 mmol/L 5-14 Serum or plasma urea nitrogen measurement (mass/volume) 12 mg/dL 7-18 Serum or plasma creatinine measurement (mass/volume) 0.77 mg/dL 0.60-1.30 Serum or plasma urea nitrogen/creatinine mass ratio 16 NRG Serum or plasma creatinine measurement with calculation of estimated glomerular filtration rate > NRG Serum or plasma glucose measurement (mass/volume) 111 mg/dL 70-105 Serum or plasma calcium measurement (mass/volume) 8.6 mg/dL 8.5-10.1 Complete blood count (CBC) with automated white blood cell (WBC) differential - 03/19/18 13:50 Blood leukocytes automated count (number/volume) 7.5 10*3/uL 4.3-11.0 Blood erythrocytes automated count (number/volume) 4.50 10*6/uL 4.35-5.85 Venous blood hemoglobin measurement (mass/volume) 13.9 g/dL 13.3-17.7 Blood hematocrit (volume fraction) 41 % 40-54 Automated erythrocyte mean corpuscular volume 90 [foz_us] 80-99 Automated erythrocyte mean corpuscular hemoglobin (mass per erythrocyte) 31 pg 25-34 Automated erythrocyte mean corpuscular hemoglobin concentration measurement ( mass/volume) 34 g/dL 32-36 Automated erythrocyte distribution width ratio 13.2 % 10.0-14.5 Automated blood platelet count (count/volume) 214 10*3/uL 130-400 Automated blood platelet mean volume measurement 10.5 [foz_us] 7.4-10.4 Automated blood neutrophils/100 leukocytes 65 % 42-75 Automated blood lymphocytes/100 leukocytes 24 % 12-44 Blood monocytes/100 leukocytes 7 % 0-12 Automated blood eosinophils/100 leukocytes 3 % 0-10 Automated blood basophils/100 leukocytes 0 % 0-10 Blood neutrophils automated count (number/volume) 4.9 10*3 1.8-7.8 Blood lymphocytes automated count (number/volume) 1.8 10*3 1.0-4.0 Blood monocytes automated count (number/volume) 0.5 10*3 0.0-1.0 Automated eosinophil count 0.3 10*3/uL 0.0-0.3 Automated blood basophil count (count/volume) 0.0 10*3/uL 0.0-0.1 Comprehensive metabolic panel - 03/19/18 13:50 Serum or plasma sodium measurement (moles/volume) 135 mmol/L 135-145 Serum or plasma potassium measurement (moles/volume) 4.4 mmol/L 3.6-5.0 Serum or plasma chloride measurement (moles/volume) 102 mmol/L 98-107 Carbon dioxide 23 mmol/L 21-32 Serum or plasma anion gap determination (moles/volume) 10 mmol/L 5-14 Serum or plasma urea nitrogen measurement (mass/volume) 7 mg/dL 7-18 Serum or plasma creatinine measurement (mass/volume) 0.84 mg/dL 0.60-1.30 Serum or plasma urea nitrogen/creatinine mass ratio 8 NRG Serum or plasma creatinine measurement with calculation of estimated glomerular filtration rate > NRG Serum or plasma glucose measurement (mass/volume) 104 mg/dL 70-105 Serum or plasma calcium measurement (mass/volume) 9.0 mg/dL 8.5-10.1 Serum or plasma total bilirubin measurement (mass/volume) 0.6 mg/dL 0.1-1.0 Serum or plasma alkaline phosphatase measurement (enzymatic activity/volume) 72 U/L 40-136 Serum or plasma aspartate aminotransferase measurement (enzymatic activity/ volume) 30 U/L 5-34 Serum or plasma alanine aminotransferase measurement (enzymatic activity/volume ) 30 U/L 0-55 Serum or plasma protein measurement (mass/volume) 7.5 g/dL 6.4-8.2 Serum or plasma albumin measurement (mass/volume) 4.4 g/dL 3.2-4.5 Serum or plasma amylase measurement (enzymatic activity/volume) - 03/19/18 13: 50 Serum or plasma amylase measurement (enzymatic activity/volume) 43 U /L 25-125 Blood lactic acid measurement (moles/volume) - 03/19/18 14:00 Blood lactic acid measurement (moles/volume) 1.08 mmol/L 0.50-2.00 Bacterial blood culture - 03/19/18 14:00 Bacterial blood culture NG NRG Bacterial blood culture - 03/19/18 14:19 Bacterial blood culture NG NRG Encounters ACCT No. Visit Date/Time Discharge Status Pt. Type Provider Facility Loc./Unit Complaint [id number] 03/18/2014 10:46:00 03/18/2014 23:59:59 CLS Outpatient KEE MAYERS APRN [id number] 11/10/2013 13:57:00 11/10/2013 23:59:59 CLS Outpatient KEE MAYERS APRN [id number] 11/10/2013 13:57:00 11/10/2013 23:59:59 CLS Outpatient KEE MAYERS APRN [id number] 07/20/2013 10:46:00 07/20/2013 23:59:59 CLS Outpatient ANDIE HERNÁNDEZ DO [id number] 04/27/2013 08:29:00 04/27/2013 23:59:59 CLS Outpatient ZAFAR AVALOS MD [id number] 10/22/2012 12:29:00 10/22/2012 23:59:59 CLS Outpatient KEE MAYERS APRN [id number] 06/24/2012 12:56:00 06/24/2012 23:59:59 CLS Outpatient KEE MAYERS APRN [id number] 06/24/2012 12:56:00 06/24/2012 23:59:59 CLS Outpatient RIANA GERARDKEE [id number] 04/17/2013 14:07:00 Document Registration [id number] 06/14/2015 10:54:41 ACT Document Registration [id number] 03/18/2018 13:15:00 03/18/2018 23:59:59 CLS Outpatient RIANA GERARDKEE [facility] [id number] 07/10/2018 07:45:00 07/10/2018 23:59:59 CLS Outpatient LAZARO CARREON DO [facility] RAD HAEMOPTYSIS, SMOKING , COPD [id number] 05/26/2018 09:33:00 05/26/2018 23:59:59 CLS Outpatient LAZARO CARREON DO [facility] RAD HEMOPLYSIS [id number] 03/19/2018 12:19:00 03/19/2018 16:37:00 DIS Emergency TOÑA DO DESHAWN Miguel [facility] ER ABCESS TOOTH [id number] 12/10/2017 08:14:00 12/11/2017 09:04:00 DIS Outpatient ALFREDO WANG MD, FACC, FACP CCDS [facility] CATH LEFT HEART CATH [id number] 01/22/2017 09:10:00 01/23/2017 11:00:00 DIS Outpatient KATHLEEN SWANSON FACC, ALFREDO HERNANDEZ CCDS [facility] CATH CHEST PAIN, CAD,ISCHEMIC CM,CARMEN [id number] 12/25/2016 08:09:00 12/25/2016 23:59:59 CLS Outpatient LAZARO CARREON DO [facility] RAD NECK PAIN RT SIDE [id number] 12/25/2016 08:04:00 12/25/2016 23:59:59 CLS Outpatient ALFREDO WANG MD, FACC, FACP CCDS [facility] CARD CAD,HLP [id number] 07/14/2016 14:02:00 07/14/2016 16:16:00 DIS Emergency ALLYN BIRD [facility] ER R LEG NUMBNESS [id number] 06/13/2016 12:05:00 06/13/2016 23:59:59 CLS Outpatient LAZARO CARREON DO A [facility] RAD SCIATICA GETTING WORSE LT LEG [id number] 05/03/2016 10:04:00 05/03/2016 23:59:59 CLS Outpatient VELMA SANCHEZ LAZARO Olson [facility] RAD SCIATICA,NUMBNESS LEFT THIGH TINGLING [id number] 05/01/2016 07:12:00 05/02/2016 09:35:00 DIS Outpatient KATHLEEN SWANSON FACC, ALFREDO HERNANDEZ CCDS [facility] CATH CHEST PAIN, CAD [id number] 03/22/2016 07:55:00 03/22/2016 23:59:59 CLS Outpatient JOS DIAS [facility] CARD CHEST PAIN, CAD [place] , COPD, CARDIOMYOPATHY [id number] 07/26/2015 12:22:00 07/26/2015 19:08:00 DIS Outpatient KATHLEEN SWANSON FACC, ALFREDO HERNANDEZ CCDS [facility] CATH ICD RODRIGUEZ, MYOPATHY [id number] 06/14/2015 00:32:00 06/14/2015 01:44:00 DIS Emergency BRIGIDA SWANSON, COLETTE Li [facility] ER DENTAL PAIN [id number] 11/23/2014 19:00:00 11/26/2014 11:30:00 DIS Outpatient VELMA SANCHEZ LAZARO Wesley [facility] CATH CHEST PAIN; HTN; COPD [id number] 06/18/2014 09:27:00 06/18/2014 23:59:59 CLS Outpatient JOS DIAS [facility] CARD CAD,HLP,HX PACEMAKER [id number] 01/13/2014 10:08:00 01/13/2014 12:37:00 DIS Emergency DAWN SWANSON, TIMO Rivera [facility] ER FALL/LEFT ANKLE INJURY [id number] 12/31/2013 07:40:00 12/31/2013 23:59:59 CLS Outpatient KATHLEEN SWANSON FACC, ALFREDO HERNANDEZ CCDS [facility] CARD HLP,CAD, [id number] 11/13/2013 07:37:00 11/13/2013 23:59:59 CLS Outpatient [id number] 06/26/2013 07:46:00 06/26/2013 23:59:59 CLS Outpatient [id number] 06/09/2013 20:44:00 06/10/2013 06:15:00 DIS Outpatient [id number] 2013 08:40:00 2013 10:07:00 DIS Emergency [id number] 04/22/2013 07:47:00 04/22/2013 23:59:59 CLS Outpatient [id number] 08/28/2018 19:37:00 ACT Emergency DESHAWN DING DO [facility] ER COUGHING UP BLOOD, SOB
--- NOTE | 2018-08-28 20:32 | Diagnostic Imaging Report ---
Clinical indication: Patient coughing up blood today. Exam: Chest x-ray PA and lateral views. Comparisons: Chest x-ray dated 05/26/2018. Findings: Lungs/pleura: Lungs are clear. There is no pneumothorax. There is no pleural effusion. Mediastinum: Unremarkable. Pulmonary vasculature: Unremarkable. Heart: Stable heart size which is within normal limits. Stable cardiac pacemaker/AICD seen overlying the left chest. Stable postop changes to the chest with sternotomy wires. Bones/extrathoracic soft tissue: Unremarkable. Impression: Stable chest x-ray exam with no interval radiographic evidence of acute cardiopulmonary process. Dictated by: Dictated on workstation # [id number]
[2018-08-28 20:33] LABS: BASOPHILS % (AUTO) 0 % (0-10); EOSINOPHILS # (AUTO) 0.2 10^3/uL (0.0-0.3); EOSINOPHILS % (AUTO) 3 % (0-10); HEMATOCRIT 39 % (40-54); HEMOGLOBIN 13.4 G/DL (13.3-17.7); LYMPHOCYTES # (AUTO) 2.2 X 10^3 (1.0-4.0); LYMPHOCYTES % (AUTO) 29 % (12-44); MEAN CORPUSCULAR HEMOGLOBIN 31 PG (25-34); MEAN CORPUSCULAR HGB CONC 34 G/DL (32-36); MEAN CORPUSCULAR VOLUME 91 FL (80-99); MEAN PLATELET VOLUME 11.1 FL (7.4-10.4); MONOCYTES # (AUTO) 0.5 X 10^3 (0.0-1.0); MONOCYTES % (AUTO) 7 % (0-12); NEUTROPHILS # (AUTO) 4.6 X 10^3 (1.8-7.8); NEUTROPHILS % (AUTO) 61 % (42-75); PLATELET COUNT 238 10^3/uL (130-400); RED CELL DISTRIBUTION WIDTH 13.6 % (10.0-14.5); WHITE BLOOD COUNT 7.5 10^3/uL (4.3-11.0)
[2018-08-28 20:39] LABS: PROTHROMBIN TIME PATIENT 13.2 SEC (12.2-14.7)
--- NOTE | 2018-08-28 20:41 | ED Cough/URI ---
General Chief Complaint: Coughing up blood Stated Complaint: COUGHING UP BLOOD, SOB Source: patient, old records History of Present Illness Date Seen by Provider: Aug 28, 2018 Time Seen by Provider: 20:05 Initial Comments PT ARRIVES VIA POV FROM HOME C/O COUGHING UP BLOOD STATES IT STARTED 2 WEEKS AGO, AND WENT AWAY, THEN STARTED AGAIN TODAY AND IS COUGHING UP BLOOD CLOTS TODAY COUGH IS NOT SEVERE ALSO C/O SHORTNESS OF BREATH NO CHEST PAIN NO SWELLING IN LEGS/FEET OR PAIN IN CALVES NO FEVER NO SWEATS NO HISTORY OF SIMILAR NO EXCESSIVE BLEEDING ANYWHERE ELSE---NO BLEEDING FROM GUMS, NO HEMATEMESIS, NO BLACK/BLOODY/TARRY STOOLS, NO HEMATURIA, NO EXCESSIVE BRUISING PT HAS HISTORY OF COPD AND ASTHMA--USES SPIRIVA, ADVAIR AND VENTOLIN INHALERS-- USED ALL THIS AM PT ALSO HAS HISTORY OF SIGNIFICANT CAD--HAS HAD STENTS X 11, WITH BALLOON ANGIOPLASTIES--LAST ONE 12/10/17; AND 1 VESSEL CABG PT CONTINUES TO SMOKE [address] CARREON 2 WEEKS AGO WHEN SYMPTOMS BEGAN AND HAD CXR DONE, AND WAS REPORTEDLY NORMAL. AND GIVEN RX FOR UNKNOWN ANTIBIOTIC--ONLY TOOK FOR 3-4 DAYS. STATES SYMPTOMS RESOLVED SO HE QUIT TAKING THEM PCP: DR. CARREON NURSERY NURSE: DR. WANG Allergies and Home Medications Allergies Coded Allergies: Penicillins (Verified Allergy, Unknown, 01/14/06) ketorolac (Unverified Adverse Reaction, Unknown, 03/30/10) Home Medications Aspirin 81 Mg Tab.chew, 81 MG PO DAILY, (Reported) Atorvastatin Calcium 20 Mg Tablet, 20 MG PO DAILY, (Reported) LAST FILLED #90 5-3-17 Baclofen 10 Mg Tablet, 10 MG PO TID PRN for MUSCLE SPASMS, (Reported) Clopidogrel Bisulfate 75 Mg Tablet, 75 MG PO DAILY, (Reported) LAST FILLED #90 5-3-17 Doxycycline Monohydrate 100 Mg Capsule, 100 MG PO BID Prescribed by: DESHAWN DING on 08/28/18 2238 Fluticasone Propionate 9.9 Ml Harlan.susp, 2 SPRAYS NS DAILY Prescribed by: DESHAWN DING on 03/19/18 1555 Fluticasone/Salmeterol 1 Each Blst.w.dev, 1 PUFF IH BID, (Reported) Furosemide 40 Mg Tablet, 40 MG PO DAILY PRN for SWELLING, (Reported) LAST FILLED #90 02-12-17 Gabapentin 600 Mg Tablet, 600 MG PO TID, (Reported) Lactobacillus Acidophilus 1 Each Capsule, 2 EACH PO QID Prescribed by: DESHAWN DING on 03/19/18 155 Lidocaine HCl 15 Ml Solution, 15 ML MM Q 1-2 HOURS Prescribed by: DESHAWN DING on 03/19/18 155 Methylprednisolone 4 Mg Tab.ds.pk, 4 MG PO UD Prescribed by: DESHAWN DING on 08/28/182237 Nitroglycerin 0.4 Mg Tab.subl, 0.4 MG SL UD PRN for CHEST PAIN, (Reported) 1 TABLET EVERY 5 MINUTES X 3 DOSES Potassium Chloride 10 Meq Tab.er.prt, 10 MEQ PO DAILY PRN for WHEN TAKING FUROSEMIDE, (Reported) Prednisone 20 Mg Tab, 40 MG PO DAILY Prescribed by: DESHAWN DING on 03/19/18 155 Tiotropium [place] 4 Gm Mist.inhal, 2 PUFF IH DAILY, (Reported) LAST FILLED #8GM 08-30-17 Tramadol HCl 50 Mg Tablet, 50 MG PO TID PRN for PAIN-MILD, (Reported) Valsartan 40 Mg Tab, 40 MG PO DAILY, (Reported) LAST FILLED #90 01-25-17 Patient Home Medication List Home Medication List Reviewed: Yes Review of Systems Review of Systems Constitutional: no symptoms reported; No chills, No diaphoresis, No fever EENTM: no symptoms reported Respiratory: see HPI, hemoptysis, short of breath; No wheezing Cardiovascular: no symptoms reported; No chest pain, No edema; Hx of Intervention; No palpitations, No syncope; vascular heart diseas Gastrointestinal: no symptoms reported; No abdominal pain, No nausea, No vomiting Genitourinary: no symptoms reported Musculoskeletal: no symptoms reported Skin: no symptoms reported Psychiatric/Neurological: No Symptoms Reported Hematologic/Lymphatic: No Symptoms Reported Immunological/Allergic: no symptoms reported Past Zsursqu-Nnmxwb-Utfeus Hx Patient Social History Alcohol Use: Regular Use (BEER + WHISKEY 3-4 TIMES A WEEK) Alcohol Beverage of Choice: Beer, Whiskey Recreational Drug Use: Yes ("ALL KINDS" WHEN IN 20'S) Drug of Choice: "ALL KINDS" WHEN IN 20'S Smoking Status: Current Everyday Smoker (1 PPD) Type Used: Cigars, Cigarettes Recent Foreign Travel: No Contact w/Someone Who Travel: No Recent Hopitalizations: No Immunizations Up To Date Tetanus Booster (TDap): Less than 5yrs Date of Pneumonia Vaccine: May 10, 2017 Date of Influenza Vaccine: Jun 25, 2015 Seasonal Allergies Seasonal Allergies: No Past Medical History Surgeries: Yes (MULTIPLE CARDIAC CATHS--STENTS X 11; BALLOON ANGIOPLASTIES; 1 VESSEL CABG; PACEMAKER//DEFIBRILLATOR; WISDOM TEETH REMOVED; KNEE SCOPES) Adenoidectomy, Cardiac, CABG, Coronary Stent, Defibrillator, Open Heart Surgery , Orthopedic, Pacemaker, Tonsillectomy Respiratory: Yes (CONTINUES TO SMOKE) Asthma, COPD Currently Using CPAP: Yes (WEARS OCCASIONALLY) Cardiac: Yes (1 VESSEL CABG; STENTS X 11; BALLOON ANGIOPLASTIES; LAST CATH 11/24--BALLOON ANGIOPLASTY; PT STATES MN X 7; CAROTID ARTERY DISEASE; PACEMAKER/ DEFIBRILLATOR) Cardiomyopathy, Coronary Artery Disease, Heart Attack, High Cholesterol, Hypertension Neurological: Yes ("Minor stroke") Stroke Reproductive Disorders: No Genitourinary: No Gastrointestinal: No Musculoskeletal: Yes (CHRONIC KNEE PAIN) Degenerate Disk Disease, Arthritis, Chronic Back Pain Endocrine: No HEENT: Yes (WISDOM TEETH REMOVED; DENTAL ABSCESSES) Cancer: No Psychosocial: No Integumentary: No Blood Disorders: No Family Medical History Patient reports no known family medical history. No Pertinent Family Hx Physical Exam Vital Signs - First Documented 08/28/18 19:46 Temp 97.7 Pulse 87 Resp 20 B/P (MAP) 102/63 (76) Pulse Ox 96 O2 Delivery Room Air Capillary Refill : Height: 5'8.00" Weight: 270lbs. 0.0oz. [id number]; 41.1 BMI Method:Stated General Appearance: no apparent distress, obese Neck: non-tender, full range of motion, supple, normal inspection Respiratory: normal breath sounds, no respiratory distress, no accessory muscle use Cardiovascular: regular rate, rhythm, no edema, no JVD, no murmur Gastrointestinal: normal bowel sounds, non tender, soft Extremities: normal inspection, no pedal edema, no calf tenderness, normal capillary refill Neurologic/Psychiatric: mechanical assembly II-XII nml as tested, no motor/sensory deficits, alert, normal mood/affect, oriented x 3 Skin: normal color (PT IS BLACK), warm/dry Progress/Results/Core Measures Suspected Sepsis SIRS Temperature: Pulse: Respiratory Rate: Laboratory Tests 08/28/18 19:58: White Blood Count 7.5 Blood Pressure / Mean: Laboratory Tests 08/28/18 19:58: Creatinine 1.06, INR Comment 1.0, Platelet Count 238, Total Bilirubin 0.3 Results/Orders Lab Results Laboratory Tests Test 08/28/18 19:58 Range/Units White Blood Count 7.5 4.3-11.0 10^3/uL Red Blood Count 4.30 L 4.35-5.85 10^6/uL Hemoglobin 13.4 13.3-17.7 G/DL Hematocrit 39 L 40-54 % Mean Corpuscular Volume 91 80-99 FL Mean Corpuscular Hemoglobin 31 25-34 PG Mean Corpuscular Hemoglobin Concent 34 32-36 G/DL Red Cell Distribution Width 13.6 10.0-14.5 % Platelet Count 238 130-400 10^3/uL Mean Platelet Volume 11.1 H 7.4-10.4 FL Neutrophils (%) (Auto) 61 42-75 % Lymphocytes (%) (Auto) 29 12-44 % Monocytes (%) (Auto) 7 0-12 % Eosinophils (%) (Auto) 3 0-10 % Basophils (%) (Auto) 0 0-10 % Neutrophils # (Auto) 4.6 1.8-7.8 X 10^3 Lymphocytes # (Auto) 2.2 1.0-4.0 X 10^3 Monocytes # (Auto) 0.5 0.0-1.0 X 10^3 Eosinophils # (Auto) 0.2 0.0-0.3 10^3/uL Basophils # (Auto) 0.0 0.0-0.1 10^3/uL Prothrombin Time 13.2 12.2-14.7 SEC INR Comment 1.0 0.8-1.4 Activated Partial Thromboplast Time 29 24-35 SEC Sodium Level 138 135-145 MMOL/L Potassium Level 3.2 L 3.6-5.0 MMOL/L Chloride Level 103 98-107 MMOL/L Carbon Dioxide Level 17 L 21-32 MMOL/L Anion Gap 18 H 5-14 MMOL/L Blood Urea Nitrogen 9 7-18 MG/DL Creatinine 1.06 0.60-1.30 MG/DL Estimat Glomerular Filtration Rate > 60 BUN/Creatinine Ratio 8 Glucose Level 103 70-105 MG/DL Calcium Level 8.9 8.5-10.1 MG/DL Corrected Calcium 8.7 8.5-10.1 MG/DL Magnesium Level 2.4 1.8-2.4 MG/DL Total Bilirubin 0.3 0.1-1.0 MG/DL Aspartate Amino Transf (AST/SGOT) 51 H 5-34 U/L Alanine Aminotransferase (ALT/SGPT) 49 0-55 U/L Alkaline Phosphatase 65 40-136 U/L Troponin I < 0.30 <0.30 NG/ML B-Type Natriuretic Peptide 48.1 <100.0 PG/ML Total Protein 7.2 6.4-8.2 GM/DL Albumin 4.2 3.2-4.5 GM/DL My Orders Orders - DESHAWN DING DO Monitor-Rhythm Ecg Trace Only (08/28/18 20:03) Chest Pa/Lat (2 View) (08/28/18 20:03) Saline Lock/Iv-Start (08/28/18 20:26) Cbc With Automated Diff (08/28/18 20:26) Comprehensive Metabolic Panel (08/28/18 20:26) Protime With Inr (08/28/18 20:26) Partial Thromboplastin Time (08/28/18 20:26) Scopolamine Patch (Transderm-Scop Patch) (08/28/18 20:30) Meclizine Tablet (Antivert Tablet) (08/28/18 20:30) Ekg Tracing (08/28/18 20:30) O2 (08/28/18 20:30) Ct Angio Chest W (08/28/18 20:47) Potassium Chloride (Tablet) (Klor Con Ta (08/28/18 21:00) BNP (08/28/18 20:48) Magnesium (08/28/18 20:48) Troponin I (08/28/18 20:48) Potassium Chloride (Tablet) (Klor Con Ta (08/28/18 21:02) Iohexol Injection (Omnipaque 350 Mg/Ml 1 (08/28/18 21:45) Contrast Received (Contrast Received) (08/28/18 21:45) Ns (Ivpb) (Sodium Chloride 0.9% Ivpb Bag (08/28/18 21:45) Ceftriaxone For Iv Use (Rocephin For I (08/28/18 22:30) Methylprednisolone Sod Succ (Solu-Medrol (08/28/18 22:29) Ceftriaxone For Iv Use (Rocephin For I (08/28/18 22:32) Ns (Ivpb) (Sodium Chloride 0.9% Ivpb Bag (08/28/18 22:32) Methylprednisolone Sod Succ (Solu-Medrol (08/28/18 22:33) Medications Given in ED Current Medications Medications Dose Ordered Sig/[place] Route Start Time Stop Time Status Last Admin Dose Admin Ceftriaxone Sodium 1000 mg/ Sodium Chloride 60 ml @ 100 mls/hr ONCE ONCE IV 08/28/18 22:30 08/28/18 23:05 DC 08/28/18 22:42 100 MLS/HR Iohexol 150 ml ONCE ONCE IV 08/28/18 21:45 08/28/18 21:46 DC 08/28/18 21:42 125 ML Meclizine HCl 50 mg ONCE ONCE PO 08/28/18 20:30 08/28/18 20:32 DC 08/28/18 20:44 50 MG Potassium Chloride 20 meq ONCE ONCE PO 08/28/18 21:00 08/28/18 21:34 DC 08/28/18 21:07 20 MEQ Scopolamine 1.5 mg ONCE ONCE TD 08/28/18 20:30 08/28/18 20:32 DC 08/28/18 20:44 1.5 MG Sodium Chloride 100 ml ONCE ONCE IV 08/28/18 21:45 08/28/18 21:46 DC 08/28/18 21:42 80 ML Vital Signs/I&O 08/28/18 08/28/18 08/28/18 19:46 20:15 23:01 Temp 97.7 98.3 Pulse 87 80 Resp 20 18 B/P (MAP) 102/63 (76) 107/70 (82) Pulse Ox 96 95 O2 Delivery Room Air Room Air Room Air 08/29/18 00:00 Intake Total 50 ml Balance 50 ml Capillary Refill : Progress Note : Progress Note 2030--ON RETURN FROM CXR--C/O DIZZINESS WITH SPINNING SENSATION--ANTIVERT + SCOPOLAMINE PATCH ORDERED. ADDITIONAL TESTS ORDERED VITALS STABLE, NSR, O2 SAT 100% ON ROOM AIR. NO COUGH OR HEMOPTYSIS DURING ER STAY DIZZINESS IMPROVED AT DISMISSAL ECG Initial ECG Impression Date: Aug 28, 2018 Initial ECG Impression Time: 20:32 Initial ECG Rate: 83 Initial ECG Rhythm: Normal Sinus Initial ECG Comparisson: Unchanged (CHRONIC ST DEPRESSION/TWAVE INVERSION AND Q WAVES) Diagnostic Imaging Comments CXR--NO ACUTE PROCESS, PER RADIOLOGIST REPORT @ 2040 CT ANGIOGRAM OF CHEST--NO ACUTE PROCESS, NO P.E., MILD NON-SPECIFIC LYMPH NODES , SOME CALCIFIED--PER RADIOLOGIST REPORT @ 2224 Reviewed: Reviewed by Me Departure Communication (Admissions) 2224--SPOKE WITH DR. CARREON, WILL SEE PT IN OFFICE TOMORROW AT 10:30, ADVISES TO HAVE CBC DONE TOMORROW MORNING Impression Primary Impression: REPORTED HEMOTYSIS Additional Impressions: COPD (chronic obstructive pulmonary disease) PLAVIX + ASPIRIN THERAPY Disposition: HOME, SELF-CARE Condition: Stable Departure-Patient Inst. Referrals: LAZARO CARREON DO (PCP/Family) Primary Care Physician Patient Instructions: Coughing up Blood Add. Discharge Instructions: CONTINUE YOUR REGULAR MEDICATIONS PRESCRIBED GET YOUR LAB DRAWN TOMORROW MORNING FOLLOW UP WITH DR. CARREON TOMORROW AT 10:30 AM All discharge instructions reviewed with patient and/or family. Voiced understanding. Scripts Doxycycline Monohydrate (Doxycycline Monohydrate) 100 Mg Capsule 100 MG PO BID, #20 CAP Prov: DESHAWN DING DO 08/28/18 Methylprednisolone (Medrol) 4 Mg Tab.ds.pk 4 MG PO UD, #1 PKG Prov: DESHAWN DING DO 08/28/18 DESHAWN DING DO Aug 28, 2018 20:41
[2018-08-28] MEDS: SCOPOLAMINE 1.5 MG (TRANSDERM-SCOP) PATCH TD ONE (20:44)
[2018-08-28] MEDS: MECLIZINE 25 MG (ANTIVERT) TAB PO ONE (20:44)
[2018-08-28 20:47] LABS: ALANINE AMINOTRANSFERASE 49 U/L (0-55); ALBUMIN 4.2 GM/DL (3.2-4.5); ALKALINE PHOSPHATASE 65 U/L (40-136); BILIRUBIN,TOTAL 0.3 MG/DL (0.1-1.0); BUN/CREATININE RATIO 8; CALCIUM 8.9 MG/DL (8.5-10.1); CARBON DIOXIDE 17 MMOL/L (21-32); CHLORIDE 103 MMOL/L (98-107); CREATININE SERUM 1.06 MG/DL (0.60-1.30); GFR ESTIMATED > 60; GLUCOSE 103 MG/DL (70-105); POTASSIUM 3.2 MMOL/L (3.6-5.0); SODIUM 138 MMOL/L (135-145); TOTAL PROTEIN 7.2 GM/DL (6.4-8.2)
[2018-08-28 21:03] LABS: MAGNESIUM 2.4 MG/DL (1.8-2.4)
[2018-08-28] MEDS: KCL 10 MEQ TAB (MICRO K) PO ONE ×2 (21:07)
[2018-08-28] MEDS: IOHEXOL 350 MG/ML 150 ML (OMNIPAQUE 350) VIAL IV ONE (21:42)
[2018-08-28] MEDS: NS 100 ML (IVPB) BAG IV ONE (21:42)
[2018-08-28] MEDS ORDERED: RECEIVED CONTRAST (Hold Metformin) IV SCH (21:45)
--- NOTE | 2018-08-28 22:18 | Diagnostic Imaging Report ---
Clinical indication: Patient coughing up blood today. Exam: CT angiogram of the chest performed with 125 cc Omnipaque 350 IV contrast. Coronal and oblique MIP images of the vasculature were created to better evaluate anatomy. Comparison: Chest x-ray dated 08/28/2018. Findings: Lungs are clear. There is no pleural effusion or pneumothorax. There are partially calcified lymph nodes in the right inferior perihilar region. There are mildly prominent lymph nodes in the bilateral perihilar and mediastinal regions. Larger lymph node in the subcarinal region measuring 1.3 cm x 2.0 cm. There is a small partially calcified lymph node in the mediastinum seen. There is a 3 mm nodule in the left thyroid gland. Remainder of the mediastinal structures show no significant abnormality. Prominent slender lymph node with fatty hilum seen involving the bilateral axillary regions. There is small soft tissue in the regions of the nipple suspected to represent gynecomastia. There are sternotomy wires seen. The thoracic aorta is nonaneurysmal with no evidence of dissection. There is no evidence of pulmonary embolism. Coronary artery calcifications are seen. The visualized upper abdominal structures show no acute finding. There are degenerative spurs involving the thoracic spine. IMPRESSION: 1: There is no evidence of pulmonary embolism or thoracic aortic aneurysm or dissection. 2: Lungs are clear. There is no pleural effusion or pneumothorax. 3: There is nonspecific mild mediastinal and hilar lymphadenopathy. Some of the lymph nodes in the mediastinal and right hilar regions are partially calcified. 4: Coronary artery calcifications are seen. Dictated by: Dictated on workstation # [id number]
[2018-08-28] MEDS ORDERED: METH4TAB PO (22:38)
[2018-08-28] MEDS: methylPREDNISolone 125 MG (Solu-MEDROL) VIAL IV STA (22:38)
[2018-08-28] MEDS: methylPREDNISolone 125 MG (Solu-MEDROL) VIAL ONE (22:38)
[2018-08-28] MEDS ORDERED: DOXY100C42 PO (22:38)
[2018-08-28] MEDS: NS (IVPB) 50 ML ONE (22:42)
[2018-08-28] MEDS: cefTRIAXone 1 GM/10 ML for IV (ROCEPHIN) ONE (22:42)
[2018-08-28] MEDS: cefTRIAXone FOR IV USE 1,000 MG in NS (IVPB) 50 ML IV ONE (22:42)
[2018-08-28 23:01] VITALS: BP 107/70
== END 2018-08-28 23:01 | disposition home or self-care (01) ==
LOC: ER 19:37 → EDUNIT# 19:37 → ER 23:01
DX: J44.9 Chronic obstructive pulmonary disease, unspecified (principal); R04.2 Hemoptysis; I25.10 Atherosclerotic heart disease of native coronary artery without angina pectoris; I25.2 Old myocardial infarction; E78.00 Pure hypercholesterolemia, unspecified; I11.0 Hypertensive heart disease with heart failure; F17.210 Nicotine dependence, cigarettes, uncomplicated; Z86.73 Personal history of transient ischemic attack (TIA), and cerebral infarction without residual deficits; Z79.51 Long term (current) use of inhaled steroids; Z95.0 Presence of cardiac pacemaker; Z90.89 Acquired absence of other organs; Z88.0 Allergy status to penicillin; Z88.5 Allergy status to narcotic agent; Z95.1 Presence of aortocoronary bypass graft; Z79.02 Long term (current) use of antithrombotics/antiplatelets; Z79.82 Long term (current) use of aspirin
CPT/HCPCS: 36415; 71046; 71275; 80053; 83735; 83880; 84484; 85025; 85610; 85730; 93041; 96365; 96375

== ENCOUNTER → 2018-08-29 | Outpatient (CLI) | payer MEDICARE ==
[~2018-08-29] MED LIST changes: +DOXY100C42 PO; +METH4TAB PO
[2018-08-29 08:39] LABS: BASOPHILS % (AUTO) 0 % (0-10); EOSINOPHILS % (AUTO) 0 % (0-10); HEMATOCRIT 42 % (40-54); HEMOGLOBIN 14.3 G/DL (13.3-17.7); LYMPHOCYTES # (AUTO) 0.8 X 10^3 (1.0-4.0); LYMPHOCYTES % (AUTO) 10 % (12-44); MEAN CORPUSCULAR HEMOGLOBIN 31 PG (25-34); MEAN CORPUSCULAR HGB CONC 34 G/DL (32-36); MEAN CORPUSCULAR VOLUME 91 FL (80-99); MEAN PLATELET VOLUME 10.5 FL (7.4-10.4); MONOCYTES # (AUTO) 0.1 X 10^3 (0.0-1.0); MONOCYTES % (AUTO) 1 % (0-12); NEUTROPHILS # (AUTO) 6.4 X 10^3 (1.8-7.8); NEUTROPHILS % (AUTO) 88 % (42-75); PLATELET COUNT 224 10^3/uL (130-400); RED BLOOD COUNT 4.62 10^6/uL (4.35-5.85); RED CELL DISTRIBUTION WIDTH 13.3 % (10.0-14.5); WHITE BLOOD COUNT 7.3 10^3/uL (4.3-11.0)
[2018-08-29 09:30] LABS: BASOPHILS % (MANUAL) 1 %; LYMPHOCYTES % (MANUAL) 4 %; MONOCYTES % (MANUAL) 4 %; NEUTROPHILS % (MANUAL) 86 %; RBC MORPH NORMAL; REACTIVE LYMPHOCYTES 5 %
== END ==
LOC: LAB 08:25
PROVIDERS: ATTEND Emergency Medicine
DX: R04.2 Hemoptysis (principal)
CPT/HCPCS: 36415; 85007; 85027

== ENCOUNTER 2018-10-21 12:25 | Observation (INO) | payer MEDICARE ==
[~2018-10-21] VITALS: Ht 172.7 cm; Wt 124.0 kg
[~2018-10-21 12:25] MED LIST changes: -ALBU18HF2 INH; -ATOR40TA70 PO; -CLOP75TA28 PO; -FLUT16SP22 NS; -METO-370 PO; -SPIR25TA5 PO; -VALS80TA PO
[2018-10-21] MEDS ORDERED: ASPIRIN 81 MG CHEW (CHILDREN'S ASA) ONE (12:35)
[2018-10-21 12:56] LABS: BASOPHILS % (AUTO) 0 % (0-10); EOSINOPHILS # (AUTO) 0.2 10^3/uL (0.0-0.3); EOSINOPHILS % (AUTO) 3 % (0-10); HEMATOCRIT 40 % (40-54); HEMOGLOBIN 13.3 G/DL (13.3-17.7); LYMPHOCYTES # (AUTO) 1.9 X 10^3 (1.0-4.0); LYMPHOCYTES % (AUTO) 28 % (12-44); MEAN CORPUSCULAR HEMOGLOBIN 31 PG (25-34); MEAN CORPUSCULAR HGB CONC 33 G/DL (32-36); MEAN CORPUSCULAR VOLUME 93 FL (80-99); MEAN PLATELET VOLUME 10.2 FL (7.4-10.4); MONOCYTES # (AUTO) 0.3 X 10^3 (0.0-1.0); MONOCYTES % (AUTO) 5 % (0-12); NEUTROPHILS # (AUTO) 4.4 X 10^3 (1.8-7.8); NEUTROPHILS % (AUTO) 64 % (42-75); PLATELET COUNT 218 10^3/uL (130-400); RED CELL DISTRIBUTION WIDTH 13.6 % (10.0-14.5); WHITE BLOOD COUNT 6.9 10^3/uL (4.3-11.0)
[2018-10-21] MEDS ORDERED: ASPIRIN 81 MG CHEW (CHILDREN'S ASA) PO ONE (13:00)
[2018-10-21 13:06] LABS: PROTHROMBIN TIME PATIENT 12.9 SEC (12.2-14.7)
[2018-10-21 13:23] LABS: MYOGLOBIN SERUM 45.6 NG/ML (10.0-92.0)
[2018-10-21 13:26] LABS: ALANINE AMINOTRANSFERASE 32 U/L (0-55); ALBUMIN 4.1 GM/DL (3.2-4.5); ALKALINE PHOSPHATASE 67 U/L (40-136); BILIRUBIN,TOTAL 0.4 MG/DL (0.1-1.0); BUN/CREATININE RATIO 8; CALCIUM 9.2 MG/DL (8.5-10.1); CARBON DIOXIDE 24 MMOL/L (21-32); CHLORIDE 102 MMOL/L (98-107); CREATININE SERUM 0.98 MG/DL (0.60-1.30); GFR ESTIMATED > 60; GLUCOSE 127 MG/DL (70-105); MAGNESIUM 2.4 MG/DL (1.8-2.4); POTASSIUM 3.9 MMOL/L (3.6-5.0); SODIUM 138 MMOL/L (135-145); TOTAL PROTEIN 7.2 GM/DL (6.4-8.2)
--- NOTE | 2018-10-21 13:27 | Diagnostic Imaging Report ---
INDICATION: Chest pain and tightness for one week. TIME OF EXAM: 1:14 p.m. COMPARISON: Correlation is made with prior study from 08/28/2018. FINDINGS: The heart appears mildly enlarged. There are changes of median sternotomy. Cardiac defibrillator is in place. No infiltrate or failure is detected. No effusion or pneumothorax is seen. IMPRESSION: No acute cardiopulmonary process is detected. Dictated by: Dictated on workstation # [id number]
--- NOTE | 2018-10-21 13:51 | ED Chest Pain ---
General Chief Complaint: Chest Pain Stated Complaint: CHEST PAINS Nursing Triage Note: pt presents to ed with complaints of intermittent l sided cp starting x 1 week. reports he went to see his doctor today and had labs drawn after. pt reports he was called after and told his triponen was high and to come to the ED. Nursing Sepsis Screen: No Definite Risk Source: patient Exam Limitations: no limitations History of Present Illness Date Seen by Provider: Oct 21, 2018 Time Seen by Provider: 12:46 Initial Comments Here with one-week of chest pain but worse last night and today. Does have significant cardiac history including bypass and multiple stents. States the pain is left-sided and worse with a deep breath. Reports as pressure and sharp and deep breathing. Denies nausea or vomiting. Denies breathing problems or sweating. Timing/Duration: 1 week, changing over time Severity/Quality: moderate Location: central (left sided) Radiation: no radiation Prior CP/Workup: cardiac cath, echocardiography, heart attack, stress test Modifying Factors: improves with rest ASA po SLIP MIXER: No NTG SL SLIP MIXER: No Associated Symptoms: No abdominal pain, No back pain, No diaphoresis, No fever/ chills, No nausea/vomiting, No shortness of breath, No weakness Allergies and Home Medications Allergies Coded Allergies: Penicillins (Verified Allergy, Unknown, 01/14/06) ketorolac (Unverified Adverse Reaction, Unknown, 03/30/10) Home Medications Aspirin 81 Mg Tab.chew, 81 MG PO DAILY, (Reported) Atorvastatin Calcium 20 Mg Tablet, 20 MG PO DAILY, (Reported) LAST FILLED #90 01-09-17 Baclofen 10 Mg Tablet, 10 MG PO TID PRN for MUSCLE SPASMS, (Reported) Clopidogrel Bisulfate 75 Mg Tablet, 75 MG PO DAILY, (Reported) LAST FILLED #90 3-17 Doxycycline Monohydrate 100 Mg Capsule, 100 MG PO BID Prescribed by: DESHAWN DING on 08/28/18 2238 Fluticasone Propionate 9.9 Ml [place].susp, 2 SPRAYS NS DAILY Prescribed by: DESHAWN DING on 03/19/18 1555 Fluticasone/Salmeterol 1 Each Blst.w.dev, 1 PUFF IH BID, (Reported) Furosemide 40 Mg Tablet, 40 MG PO DAILY PRN for SWELLING, (Reported) LAST FILLED #90 02-12-17 Gabapentin 600 Mg Tablet, 600 MG PO TID, (Reported) Lactobacillus Acidophilus 1 Each Capsule, 2 EACH PO QID Prescribed by: DESHAWN DING on 03/19/18 155 Lidocaine HCl 15 Ml Solution, 15 ML MM Q 1-2 HOURS Prescribed by: DESHAWN DING on 03/19/18 155 Methylprednisolone 4 Mg Tab.ds.pk, 4 MG PO UD Prescribed by: DESHAWN DING on 08/28/182237 Nitroglycerin 0.4 Mg Tab.subl, 0.4 MG SL UD PRN for CHEST PAIN, (Reported) 1 TABLET EVERY 5 MINUTES X 3 DOSES Potassium Chloride 10 Meq Tab.er.prt, 10 MEQ PO DAILY PRN for WHEN TAKING FUROSEMIDE, (Reported) Prednisone 20 Mg Tab, 40 MG PO DAILY Prescribed by: DESHAWN DING on 03/19/181552 Tiotropium [place] 4 Gm Mist.inhal, 2 PUFF IH DAILY, (Reported) LAST FILLED #8GM 08-30-17 Tramadol HCl 50 Mg Tablet, 50 MG PO TID PRN for PAIN-MILD, (Reported) Valsartan 40 Mg Tab, 40 MG PO DAILY, (Reported) LAST FILLED #90 01-25-17 Patient Home Medication List Home Medication List Reviewed: Yes Review of Systems Review of Systems Constitutional: see HPI; No chills, No fever EENTM: No Symptoms Reported Respiratory: See HPI; Denies Shortness of Air, Denies Wheezing Cardiovascular: Chest Pain; Denies Edema, Denies Syncope Gastrointestinal: Diarrhea; Denies Nausea, Denies Vomiting Genitourinary: No Symptoms Reported Musculoskeletal: see HPI; No muscle weakness, No neck pain Skin: no symptoms reported Psychiatric/Neurological: No Symptoms Reported All Other Systems Reviewed Negative Unless Noted: Yes Past Eylfdwm-Tgnwdl-Dggexy Hx Past Med/Social Hx: Reviewed Nursing Past Med/Soc Hx Patient Social History Alcohol Use: Regular Use Number of Drinks Today: GG Alcohol Beverage of Choice: Beer, Whiskey Recreational Drug Use: No Drug of Choice: "ALL KINDS" WHEN IN 20'S Smoking Status: Current Everyday Smoker Type Used: Cigars, Cigarettes Recent Foreign Travel: No Contact w/Someone Who Travel: No Recent Infectious Disease Expo: No Recent Hopitalizations: No Physical Abuse: No Sexual Abuse: No Mistreated: No Fear: No Immunizations Up To Date Tetanus Booster (TDap): Less than 5yrs Date of Pneumonia Vaccine: May 10, 2017 Date of Influenza Vaccine: Jun 25, 2015 Seasonal Allergies Seasonal Allergies: No Past Medical History Surgeries: Yes Adenoidectomy, Cardiac, CABG, Coronary Stent, Defibrillator, Open Heart Surgery , Orthopedic, Pacemaker, Tonsillectomy Respiratory: Yes (CONTINUES TO SMOKE) Asthma, COPD Currently Using CPAP: Yes (WEARS OCCASIONALLY) Cardiac: Yes Cardiomyopathy, Coronary Artery Disease, Heart Attack, High Cholesterol, Hypertension Neurological: Yes ("Minor stroke") Stroke Reproductive Disorders: No Genitourinary: No Gastrointestinal: No Musculoskeletal: Yes (CHRONIC KNEE PAIN) Degenerate Disk Disease, Arthritis, Chronic Back Pain Endocrine: No HEENT: Yes (WISDOM TEETH REMOVED; DENTAL ABSCESSES) Cancer: No Psychosocial: No Integumentary: No Blood Disorders: No Family Medical History Reviewed Nursing Family Hx Patient reports no known family medical history. No Pertinent Family Hx Physical Exam Vital Signs Vital Signs - First Documented 10/21/18 12:25 Temp 97.9 Pulse 87 Resp 16 B/P (MAP) 152/83 (106) Pulse Ox 99 O2 Delivery Room Air Capillary Refill : Less Than 3 Seconds Height, Weight, BMI Height: 5'8.00" Weight: 270lbs. 0.0oz. 122.217127tp; 41.1 BMI Method:Stated General Appearance: No Apparent Distress, WD/WN HEENT: PERRL/EOMI, Pharynx Normal Neck: Non Tender, Supple Respiratory: Lungs Clear, Normal Breath Sounds Cardiovascular: Regular Rate, Rhythm, No Murmur Gastrointestinal: Non Tender, Soft Extremity: Normal Range of Motion, Non Tender Neurologic/Psychiatric: Alert, Oriented x3 Skin: Normal Color, Warm/Dry Progress/Results/Core Measures Results/Orders Lab Results Laboratory Tests Test 10/21/18 12:46 Range/Units White Blood Count 6.9 4.3-11.0 10^3/uL Red Blood Count 4.28 L 4.35-5.85 10^6/uL Hemoglobin 13.3 13.3-17.7 G/DL Hematocrit 40 40-54 % Mean Corpuscular Volume 93 80-99 FL Mean Corpuscular Hemoglobin 31 25-34 PG Mean Corpuscular Hemoglobin Concent 33 32-36 G/DL Red Cell Distribution Width 13.6 10.0-14.5 % Platelet Count 218 130-400 10^3/uL Mean Platelet Volume 10.2 7.4-10.4 FL Neutrophils (%) (Auto) 64 42-75 % Lymphocytes (%) (Auto) 28 12-44 % Monocytes (%) (Auto) 5 0-12 % Eosinophils (%) (Auto) 3 0-10 % Basophils (%) (Auto) 0 0-10 % Neutrophils # (Auto) 4.4 1.8-7.8 X 10^3 Lymphocytes # (Auto) 1.9 1.0-4.0 X 10^3 Monocytes # (Auto) 0.3 0.0-1.0 X 10^3 Eosinophils # (Auto) 0.2 0.0-0.3 10^3/uL Basophils # (Auto) 0.0 0.0-0.1 10^3/uL Prothrombin Time 12.9 12.2-14.7 SEC INR Comment 1.0 0.8-1.4 Activated Partial Thromboplast Time 29 24-35 SEC D-Dimer 0.45 0.00-0.49 UG/ML Sodium Level 138 135-145 MMOL/L Potassium Level 3.9 3.6-5.0 MMOL/L Chloride Level 102 98-107 MMOL/L Carbon Dioxide Level 24 21-32 MMOL/L Anion Gap 12 5-14 MMOL/L Blood Urea Nitrogen 8 7-18 MG/DL Creatinine 0.98 0.60-1.30 MG/DL Estimat Glomerular Filtration Rate > 60 BUN/Creatinine Ratio 8 Glucose Level 127 H 70-105 MG/DL Calcium Level 9.2 8.5-10.1 MG/DL Corrected Calcium 9.1 8.5-10.1 MG/DL Magnesium Level 2.4 1.8-2.4 MG/DL Total Bilirubin 0.4 0.1-1.0 MG/DL Aspartate Amino Transf (AST/SGOT) 31 5-34 U/L Alanine Aminotransferase (ALT/SGPT) 32 0-55 U/L Alkaline Phosphatase 67 40-136 U/L Myoglobin 45.6 10.0-92.0 NG/ML Troponin I 0.126 <0.028 NG/ML B-Type Natriuretic Peptide 58.2 <100.0 PG/ML Total Protein 7.2 6.4-8.2 GM/DL Albumin 4.1 3.2-4.5 GM/DL Lipase 34 8-78 U/L My Orders Orders - COLETTE ALLRED MD Cbc With Automated Diff (10/21/18 12:31) Magnesium (10/21/18 12:31) Chest 1 View, Ap/Pa Only (10/21/18 12:31) Ekg Tracing (10/21/18 12:31) Cardiac Profile 1 (10/21/18 12:31) Comprehensive Metabolic Panel (10/21/18 12:31) Myoglobin Serum (10/21/18 12:31) Protime With Inr (10/21/18 12:31) Partial Thromboplastin Time (10/21/18 12:31) O2 (10/21/18 12:31) Monitor-Rhythm Ecg Trace Only (10/21/18:) Lipid Panel (10/22/18 06:00) Saline Lock/Iv-Start (10/21/18 12:31) Aspirin Chewable Tablet (Baby Aspirin Ch (10/21/18 12:35) Aspirin Chewable Tablet (Baby Aspirin Ch (10/21/18 13:00) Lipase (10/21/18 12:54) BNP (10/21/18 12:54) Fibrin Degradation Products (10/21/18 12:54) Metoprolol Succinate (Xl) Tab (Toprol Xl (10/21/18 14:15) Morphine Injection (Morphine Injection (10/21/18 14:21) Medications Given in ED Current Medications Medications Dose Ordered Sig/[place] Route Start Time Stop Time Status Last Admin Dose Admin Aspirin 324 mg ONCE ONCE PO 10/21/18 13:00 10/21/18 13:01 DC 10/21/18 13:10 324 MG Vital Signs/I&O 10/21/18 10/21/18 12:25 12:25 Temp 97.9 Pulse 87 Resp 16 B/P (MAP) 152/83 (106) Pulse Ox 99 O2 Delivery Room Air Blood Pressure Mean: 106 Progress Progress Note : Progress Note Seen and evaluated. IV, labs, EKG and chest x-ray ordered. ASA 324 mg by mouth ordered. Monitor patient. 1355: Repeat troponin noted. This does represent a delta from earlier as it has increased slightly. Given patient's significant cardiac history, admission is indicated. 1404: I discussed the case with Dr. Carreon and he accepts patient for admission, observation status. 1410: I did discuss the case with Dr. Gomes and he accepts patient in consult. Toprol-XL 50 mg by mouth ordered per his request. Morphine 4 mg IV for continued mild pain. Patient and family agree with plan. Initial ECG Impression Date: Oct 21, 2018 Initial ECG Impression Time: 12:31 Initial ECG Rate: 90 Initial ECG Rhythm: Normal Sinus Comment Sinus rhythm with left atrial abdomen mildly. T-wave inversions noted multiple leads. Overall similar to 08/28/18. Interpreted by me. Diagnostic Imaging Diagonstic Imaging: Xray Plain Films/CT/US/NM/MRI: chest Comments [facility], [place] NAME: BRAD MIRZA [facility] REC#: [id number] PT STATUS: REG ER : 1960 PHYSICIAN: COLETTE ALLRED MD ADMIT DATE: 10/21/18/ER Draft Date of Exam:10/21/18 CHEST 1 VIEW, AP/PA ONLY INDICATION: Chest pain and tightness for one week. TIME OF EXAM: 1:14 p.m. COMPARISON: Correlation is made with prior study from 08/28/2018. FINDINGS: The heart appears mildly enlarged. There are changes of median sternotomy. Cardiac defibrillator is in place. No infiltrate or failure is detected. No effusion or pneumothorax is seen. IMPRESSION: No acute cardiopulmonary process is detected. Dictated on workstation # [id number] Dict: 10/21/18 1324 Trans: 10/21/18 1326 [id number] Interpreted by: ZAHEER MUNGUIA MD Electronically signed by: Departure Communication (Admissions) Time/Spoke to Admitting Phy: 14:04 Time/Spoke to Consulting Phy: 14:10 Impression Primary Impression: Chest pain Qualified Codes: R07.9 - Chest pain, unspecified Disposition: ADMITTED INPATIENT Condition: Stable Admissions Decision to Admit Reason: Admit from ER (General) Decision to Admit/Date: Oct 21, 2018 Time/Decision to Admit Time: 13:55 Departure-Patient Inst. Referrals: LAZARO CARREON DO (PCP/Family) Primary Care Physician COLETTE ALLRED MD Oct 21, 2018 13:51
[2018-10-21] MEDS ORDERED: meTOproloL SUCCINATE 50 MG (TOPROL XL) TAB PO SCH (14:15)
[2018-10-21] MEDS ORDERED: morphine INJ 10 MG/ML 1ML (SYR OR VIAL) IVP STA (14:21)
--- NOTE | 2018-10-21 14:27 | Consultation-Cardiology ---
HPI-Cardiology Cardiology Consultation: Date of Consultation 10/21/18 Time Seen by a Provider: 14:45 Date of Admission 10-21-18 Attending Physician Admitting Physician Joaquin Ryan DO Consulting Physician Jacklyn Gomes MD HPI: Chief Complaint: Chest pain Mr. Warrne is a 58 year old male being admitted to [facility] from the ED. We have seen him in the ED. He reports he has been having constant left sided chest pain, sharp, stabbing, localized pain. It is worse with coughing or deep breathing for approx the last week. He states he has had a frequent productive cough for the last week as well. He reports the discomfort today became constant pressure with sharp stabbing pains that were more frequent. He denies any fever or chills. He reports he went to see his PCP this morning and was directed to [facility] for blood work. He reports he then went home. He received a phone call at home telling him to report to the ED. He denies any n/v. He does report some diarrhea. He denies any palpitations. He has chronic mod exertional dyspnea which has been progressively worse. He denies any LE swelling. Ne states he has been compliant with his medications. He reports he has not been compliant with his CPAP tx. He reports approx 2-3 months ago we was not taking Plavix for approx 2-3 weeks d/t hemoptysis, but he is back on it. Review of Systems-Cardiology Review of Systems Constitutional: No chills, No fever Eyes: No vision change Ears/Nose/Throat: No epistaxis, No recent hearing loss Respiratory: As described under HPI Cardiovascular: As described under HPI Gastrointestinal: No constipation; diarrhea; No nausea, No vomiting Genitourinary: No dysuria, No hematuria Musculoskeletal: joint pain Skin: No rash, No ulcerations Psychiatric/Neurological: No seizure, No focal weakness, No syncope Hematologic: No bleeding abnormalities All Other Systems Reviewed Negative Unless Noted: Yes YGN-Buoobh-Qqohah Hx Patient Social History Alcohol Use: Regular Use Recreational Drug Use: No Drug of Choice: "ALL KINDS" WHEN IN 20'S Smoking Status: Current Everyday Smoker Type Used: Cigars, Cigarettes Recent Foreign Travel: No Recent Infectious Disease Expo: No Immunizations Up To Date Tetanus Booster (TDap): Less than 5yrs Date of Pneumonia Vaccine: May 10, 2017 Date of Influenza Vaccine: Jun 25, 2015 Past Medical History PMH As described under Assessment. Family Medical History Family History: Patient reports no known family medical history. Allergies and Home Medications Allergies Coded Allergies: Penicillins (Verified Allergy, Unknown, 01/14/06) ketorolac (Unverified Adverse Reaction, Unknown, 03/30/10) Home Medications Aspirin 81 Mg Tab.chew, 81 MG PO DAILY, (Reported) Atorvastatin Calcium 20 Mg Tablet, 20 MG PO DAILY, (Reported) LAST FILLED #90 01-09-17 Baclofen 10 Mg Tablet, 10 MG PO TID PRN for MUSCLE SPASMS, (Reported) Clopidogrel Bisulfate 75 Mg Tablet, 75 MG PO DAILY, (Reported) LAST FILLED #90 01-09-17 Doxycycline Monohydrate 100 Mg Capsule, 100 MG PO BID Prescribed by: DESHAWN DING on 08/28/182237 Fluticasone Propionate 9.9 Ml [place].susp, 2 SPRAYS NS DAILY Prescribed by: DESHAWN DING on 03/19/181554 Fluticasone/Salmeterol 1 Each Blst.w.dev, 1 PUFF IH BID, (Reported) Furosemide 40 Mg Tablet, 40 MG PO DAILY PRN for SWELLING, (Reported) LAST FILLED #90 02-12-17 Gabapentin 600 Mg Tablet, 600 MG PO TID, (Reported) Lactobacillus Acidophilus 1 Each Capsule, 2 EACH PO QID Prescribed by: DESHAWN DING on 03/19/181553 Lidocaine HCl 15 Ml Solution, 15 ML MM Q 1-2 HOURS Prescribed by: DESHAWN DING on 03/19/181552 Methylprednisolone 4 Mg Tab.ds.pk, 4 MG PO UD Prescribed by: DESHAWN DING on 08/28/182237 Nitroglycerin 0.4 Mg Tab.subl, 0.4 MG SL UD PRN for CHEST PAIN, (Reported) 1 TABLET EVERY 5 MINUTES X 3 DOSES Potassium Chloride 10 Meq Tab.er.prt, 10 MEQ PO DAILY PRN for WHEN TAKING FUROSEMIDE, (Reported) Prednisone 20 Mg Tab, 40 MG PO DAILY Prescribed by: DESHAWN DING on 03/19/181552 Tiotropium [place] 4 Gm Mist.inhal, 2 PUFF IH DAILY, (Reported) LAST FILLED #8GM 08-30-17 Tramadol HCl 50 Mg Tablet, 50 MG PO TID PRN for PAIN-MILD, (Reported) Valsartan 40 Mg Tab, 40 MG PO DAILY, (Reported) LAST FILLED #90 17 Physical Exam-Cardiology Physical Exam Vital Signs/I&O 10/21/18 10/21/18 12:25 12:25 Temp 97.9 Pulse 87 Resp 16 B/P (MAP) 152/83 (106) Pulse Ox 99 O2 Delivery Room Air Capillary Refill : Less Than 3 Seconds Constitutional: AAO x 3, well-developed, well-nourished HEENT: PERRL, hearing is well preserved, oral hygience is good Neck: No carotid bruit; carotid pulses are 2 + bilaterally Respiratory: No accessory muscle use, No respiratory distress; chest expansion is symmetric, chest is bilaterally symmetric, rhonchi (scattered), other ( prolonged expiratory phase) Cardiovascular: regular rate-rhythm; No JVD; S1 and S2 Gastrointestinal: No tender; soft, round, audible bowel sounds Rectal: deferred Extremities: no lower extremity edema bilateral Neurologic/Psychiatric: grossly intact, power is 5/5 both on sides Skin: No rash, No ulcerations Data Review Labs Laboratory Tests 10/21/18 12:46: White Blood Count 6.9, Red Blood Count 4.28L, Hemoglobin 13.3, Hematocrit 40, Mean Corpuscular Volume 93, Mean Corpuscular Hemoglobin 31, Mean Corpuscular Hemoglobin Concent 33, Red Cell Distribution Width 13.6, Platelet Count 218, Mean Platelet Volume 10.2, Neutrophils (%) (Auto) 64, Lymphocytes (%) (Auto) 28 , Monocytes (%) (Auto) 5, Eosinophils (%) (Auto) 3, Basophils (%) (Auto) 0, Neutrophils # (Auto) 4.4, Lymphocytes # (Auto) 1.9, Monocytes # (Auto) 0.3, Eosinophils # (Auto) 0.2, Basophils # (Auto) 0.0, Prothrombin Time 12.9, INR Comment 1.0, Activated Partial Thromboplast Time 29, D-Dimer 0.45, Sodium Level 138, Potassium Level 3.9, Chloride Level 102, Carbon Dioxide Level 24, Anion Gap 12, Blood Urea Nitrogen 8, Creatinine 0.98, Estimat Glomerular Filtration Rate > 60, BUN/Creatinine Ratio 8, Glucose Level 127H, Calcium Level 9.2, Corrected Calcium 9.1, Magnesium Level 2.4, Total Bilirubin 0.4, Aspartate Amino Transf (AST/SGOT) 31, Alanine Aminotransferase (ALT/SGPT) 32, Alkaline Phosphatase 67, Myoglobin 45.6, Troponin I 0.126, B-Type Natriuretic Peptide 58.2, Total Protein 7.2, Albumin 4.1, Lipase 34 Laboratory Tests 10/21/18 12:46 Radiology NAME: BRAD WARREN [facility] REC#: [id number] PT STATUS: REG ER : 1960 PHYSICIAN: COLETTE ALLRED MD ADMIT DATE: 10/21/18/ER Draft Date of Exam:10/21/18 CHEST 1 VIEW, AP/PA ONLY INDICATION: Chest pain and tightness for one week. TIME OF EXAM: 1:14 p.m. COMPARISON: Correlation is made with prior study from 08/28/2018. FINDINGS: The heart appears mildly enlarged. There are changes of median sternotomy. Cardiac defibrillator is in place. No infiltrate or failure is detected. No effusion or pneumothorax is seen. IMPRESSION: No acute cardiopulmonary process is detected. Dictated on workstation # [id number] Dict: 10/21/18 1324 Trans: 10/21/18 1326 [id number] Interpreted by: ZAHEER MUNGUIA MD Electronically signed by: A/P-Cardiology Assessment/Admission Diagnosis Chest pain of undetermined etiology Acute on chronic exacerbation of COPD CAD. Cardiac cath of December 10, 2017: Coronary artery disease is consisting of 80 % proximal stenosis of the left anterior descending artery and mid vessel occlusion of the left anterior descending artery. The distal left anterior descending artery is protected by a patent left internal mammary artery graft to the distal left anterior descending artery. A ramus intermedius artery is known to have overlapping stents (Promus 2.5 x 38 and 2.5 x 12) that were exhibiting up to 90% stenosis. The ostial ramus intermedius had 95% stenosis. The left circumflex artery is known to have a 4.0 x 24 mm stent, which was exhibiting 70% stenosis. To these stenoses in the ramus intermedius and in the left circumflex, kissing balloon angioplasty was carried out, which reduced the stenosis to approximately 30%. The distal ramus intermedius artery has 70% stenosis where the vessel is of a small caliber and not amenable to intervention. The right coronary artery is a small, nondominant and has diffuse moderately severe disease. Moderately elevated left ventricular end- diastolic pressure. Anterolateral and apical hypokinesis. Mild impairment of global left ventricular systolic function with ejection fraction 45% to 50%. ICM Abnormal ECG: ECG of 12/10/16 showed NSR with repol abn in anterolat leads, essentially unchanged on 12/04/17 On echo of 06/18/14 LVEF was 30-35%, distal septal and anteroapical hypo/ akinesis and PASP 25 mmHg Status post defibrillator placement [place] [address] Reynaga at [facility]. Device was replaced on 07/26/15 after it had reached RODRIGUEZ. It is fucntioning normally on interrogation of Aug 2018 Reactive airway disease. Chronic tobaccoism - cessation advised Diastolic dysfunction of the left ventricle. Chronic joint and back discomfort. Sleep apnea for which he's on CPAP therapy. History of mild intermittent liver enzyme elevation, likely related to alcohol use, no elevation on lab work of Jun 2014. This is followed by Dr Ryan Noncompliance with medications. Hyperlipidemia - PCP managing Mild carotid arterial disease on carotid u/s of 09/07/16 Discussion and Recomendations Non-specific chest pain Continue current medication regimen including ASA, Plavix, statin, ARB Monitor lab Management of COPD per medical services Echocardiogram to eval structure and LVEF Further recs will be based on his hospital course We would like to thank medical services for this consult Clinical Quality Measures AMI/AHF: ASA po Prior to arrival: JOS Carver Oct 21, 2018 14:27
--- OUTSIDE RECORDS SUMMARY | 2018-10-21 15:03 | XMS REPORT | Clinical Summary ---
Author Author [facility] Organization [facility] Address Unknown Phone Unavailable Care Team Providers Care Registered Physical Therapist Name Role Phone PCP Unavailable Allergies Not [...]
--- OUTSIDE RECORDS SUMMARY | 2018-10-21 15:07 | XMS REPORT | Continuity of Care Document ---
Author Author [facility] Address Unknown Phone Unavailable Allergies Active Description Code Type Severity Reaction Onset Reported/Identified Relationship to Patient Clinical Status Yes Penicillins [id number] Drug Allergy Unknown N/A 01/14/2006 Yes Penicillins Drug Allergy 10/11/2008 Yes Penicillins Drug Allergy N/A N/A 10/11/2008 Yes ketorolac [id number] Drug Allergy Unknown N/A 03/30/2010 Yes Oxycodone [...] Foreign Body Granuloma Of Muscle 09/18/2008 RIANA RANGER AIDE, KEE S 728.82 Foreign Body Granuloma Of [...] K 728.85 Spasm Of Muscle 09/20/2008 RIANA RANGER AIDE, KEE S 272.4 HYPERLIPIDEMIA 09/20/2008 RIANA RANGER AIDE, KEE S 728.85 Spasm Of Muscle 09/20/2008 RIANA RANGER AIDE, KEE S 272.4 HYPERLIPIDEMIA 09/20/2008 RIANA RANGER AIDE, KEE S 728.85 Spasm Of Muscle 09/20/2008 RIANA RANGER AIDE, KEE S 272.4 HYPERLIPIDEMIA 09/20/2008 RIANA RANGER AIDE, KEE S 728.85 Spasm Of Muscle 09/23/2008 RIANA RANGER AIDE, KEE S 270.7 HYPERGLYCEMIA 09/23/2008 RIANA RANGER AIDE, KEE S 715.90 Osteoarthrosis Unspecified Whether Generalized Or Localized Involving Unspecified Site 09/23/2008 RIANA RANGER AIDE, KEE S 270.7 HYPERGLYCEMIA 09/23/2008 RIANA LIN, [...] Or Localized Involving Unspecified Site 09/23/2008 RIANA RANGER AIDE, KEE S 270.7 HYPERGLYCEMIA 09/23/2008 RIANA LIN, KEE S 715.90 Osteoarthrosis Unspecified Whether Generalized Or Localized Involving Unspecified Site 09/23/2008 RIANA RANGER AIDE, KEE S 270.7 HYPERGLYCEMIA 09/23/2008 RIANA RANGER AIDE, KEE S 715.90 Osteoarthrosis Unspecified Whether Generalized Or Localized Involving Unspecified Site 10/11/2008 RIANA RANGER AIDE, KEE S 251.1 Other Specified Hypoglycemia 10/11/2008 RIANA RANGER AIDE, KEE S 272.0 Pure Hypercholesterolemia 10/11/2008 RIANA RANGER AIDE, KEE S 729.5 Pain In Limb 10/11/2008 RIANA RANGER AIDE, KEE S 251.1 Other Specified Hypoglycemia 10/11/2008 RIANA RANGER AIDE, KEE S 272.0 Pure Hypercholesterolemia 10/11/2008 RIANA RANGER AIDE, KEE S 729.5 Pain In Limb 10/11/2008 RIANA RANGER AIDE, KEE S 251.1 Other Specified Hypoglycemia 10/11/2008 RIANA RANGER AIDE, KEE S 272.0 Pure Hypercholesterolemia 10/11/2008 RIANA RANGER AIDE, KEE S 729.5 Pain In Limb 10/11/2008 [...] K 729.5 Pain In Limb 10/11/2008 RIANA RANGER AIDE, KEE S 251.1 Other Specified Hypoglycemia 10/11/2008 RIANA RANGER AIDE, KEE S 272.0 Pure Hypercholesterolemia 10/11/2008 RIANA RANGER AIDE, KEE S 729.5 Pain In Limb 10/11/2008 RIANA RANGER AIDE, KEE S 251.1 Other Specified Hypoglycemia 10/11/2008 RIANA RANGER AIDE, KEE S 272.0 Pure Hypercholesterolemia 10/11/2008 RIANA RANGER AIDE, KEE S 729.5 Pain In Limb 10/11/2008 RIANA RANGER AIDE, KEE S 251.1 Other Specified Hypoglycemia 10/11/2008 RIANA RANGER AIDE, KEE S 272.0 Pure Hypercholesterolemia 10/11/2008 AMINA [...] ANDIE K NODX No Diagnosis 04/20/2009 RIANA RANGER AIDE, KEE S NODX No Diagnosis 04/20/2009 RIANA RANGER AIDE, KEE S NODX No Diagnosis 04/20/2009 RIANA RANGER AIDE, KEE S NODX No Diagnosis 06/22/2009 RIANA RANGER AIDE, KEE S 558.9 Gastroenteritis Noninfectious 06/22/2009 RIANA RANGER AIDE, KEE S 558.9 Gastroenteritis Noninfectious 06/22/2009 RIANA RANGER AIDE, KEE S 558.9 Gastroenteritis Noninfectious 06/22/2009 558.9 Gastroenteritis Noninfectious 06/22/2009 ZAFAR AVALOS MD 558.9 Gastroenteritis Noninfectious 06/22/2009 ANDIE HERNÁNDEZ DO K 558.9 Gastroenteritis Noninfectious 06/22/2009 RIANA RANGER AIDE, KEE S 558.9 Gastroenteritis Noninfectious 06/22/2009 RIANA RANGER AIDE, KEE S 558.9 Gastroenteritis Noninfectious 06/22/2009 RIANA RANGER AIDE, KEE S 558.9 Gastroenteritis Noninfectious 02/13/2010 RIANA RANGER AIDE, KEE S 414.01 Coronary Artery Stenosis Multi-vessel 02/13/2010 RIANA GERARD, KEE S 414.01 Coronary Artery Stenosis Multi-vessel 02/13/2010 RIANA RANGER AIDE, KEE S 414.01 Coronary Artery Stenosis Multi-vessel 02/13/2010 414.01 Coronary Artery Stenosis Multi-vessel 02/13/2010 ZAFAR AVALOS MD 414.01 Coronary Artery Stenosis Multi-vessel 02/13/2010 BETTY SANCHEZ, ANDIE K 414.01 Coronary Artery Stenosis Multi-vessel 02/13/2010 RIANA RANGER AIDE, KEE S 414.01 Coronary Artery Stenosis Multi-vessel 02/13/2010 RIANA LIN, KEE S 414.01 Coronary Artery Stenosis Multi-vessel 02/13/2010 RIANA RANGER AIDE, KEE S 414.01 Coronary Artery Stenosis Multi-vessel 04/17/2010 RIANA RANGER AIDE, KEE S 305.1 NICOTINE DEPENDENCE 04/17/2010 RIANA GERARD KEE S 733.6 Costochondritis (tietze's Syndrome) 04/17/2010 RIANA RANGER AIDE, KEE S 305.1 NICOTINE DEPENDENCE 04/17/2010 RIANA RANGER AIDE, KEE S 733.6 Costochondritis (tietze's Syndrome) 04/17/2010 RIANA RANGER AIDE, KEE S 305.1 NICOTINE DEPENDENCE 04/17/2010 RIANA RANGER AIDE, KEE S 733.6 Costochondritis (tietze's Syndrome) 04/17/2010 305.1 NICOTINE DEPENDENCE 04/17/2010 733.6 Costochondritis (tietze's Syndrome) 04/17/2010 ZAFAR AVALOS MD 305.1 NICOTINE DEPENDENCE 04/17/2010 ZAFAR AVALOS MD 733.6 Costochondritis (tietze's Syndrome) 04/17/2010 HERNÁNDEZ DO, ANDIE K 305.1 NICOTINE DEPENDENCE 04/17/2010 HERNÁNDEZ DO, ANDIE K 733.6 Costochondritis (tietze's Syndrome) 04/17/2010 RIANA RANGER AIDE, KEE S 305.1 NICOTINE DEPENDENCE 04/17/2010 RIANA RANGER AIDE, KEE S 733.6 Costochondritis (tietze's Syndrome) 04/17/2010 RIANA RANGER AIDE, KEE S 305.1 NICOTINE DEPENDENCE 04/17/2010 RIANA RANGER AIDE, KEE S 733.6 Costochondritis (tietze's Syndrome) 04/17/2010 RIANA RANGER AIDE, KEE S 305.1 NICOTINE DEPENDENCE 04/17/2010 RIANA RANGER AIDE, KEE S 733.6 Costochondritis (tietze's Syndrome) 11/01/2010 RIANA RANGER AIDE, KEE S 786.50 Chest Pain 11/01/2010 RIANA RANGER AIDE, KEE S 786.50 Chest Pain 11/01/2010 RIANA RANGER AIDE, KEE S 786.50 Chest Pain 11/01/2010 786.50 Chest Pain 11/01/2010 ZAFAR AVALOS MD 786.50 Chest Pain 11/01/2010 HERNÁNDEZ DO, ANDIE K 786.50 Chest Pain 11/01/2010 RIANA RANGER AIDE, KEE S 786.50 Chest Pain 11/01/2010 RIANA RANGER AIDE, KEE S 786.50 Chest Pain 11/01/2010 RIANA RANGER AIDE, KEE S 786.50 Chest Pain 12/12/2010 RIANA RANGER AIDE, KEE S 724.2 lower back pain 12/12/2010 RIANA RANGER AIDE, KEE S 724.2 lower back pain 12/12/2010 RIANA RANGER AIDE, KEE S 724.2 lower back pain 12/12/2010 724.2 lower back pain 12/12/2010 ZAFAR AVALOS MD 724.2 lower back pain 12/12/2010 HERNÁNDEZ DO, ANDIE K 724.2 lower back pain 12/12/2010 RIANA RANGER AIDE, KEE S 724.2 lower back pain 12/12/2010 RIANA RANGER AIDE, KEE S 724.2 lower back pain 12/12/2010 RIANA RANGER AIDE, KEE S 724.2 lower back pain 05/29/2011 RIANA RANGER AIDE, KEE S 493.00 ASTHMA EXTRINSIC 05/29/2011 RIANA RANGER AIDE, KEE S 493.00 ASTHMA EXTRINSIC 05/29/2011 RIANA RANGER AIDE, KEE S 493.00 ASTHMA EXTRINSIC 05/29/2011 493.00 ASTHMA EXTRINSIC 05/29/2011 ZAFAR AVALOS MD 493.00 ASTHMA EXTRINSIC 05/29/2011 HERNÁNDEZ DO, ANDIE K 493.00 ASTHMA EXTRINSIC 05/29/2011 RIANA RANGER AIDE, KEE S 493.00 ASTHMA EXTRINSIC 05/29/2011 RIANA RANGER AIDE, KEE S 493.00 ASTHMA EXTRINSIC 05/29/2011 RIANA RANGER AIDE, KEE S 493.00 ASTHMA EXTRINSIC 07/30/2011 RIANA RANGER AIDE, KEE S 780.57 UNSPECIFIED SLEEP APNEA 07/30/2011 RIANA RANGER AIDE, KEE S 780.57 UNSPECIFIED SLEEP APNEA 07/30/2011 RIANA RANGER AIDE, KEE S 780.57 UNSPECIFIED SLEEP APNEA 07/30/2011 780.57 UNSPECIFIED SLEEP APNEA 07/30/2011 ZAFAR AVALOS MD 780.57 UNSPECIFIED SLEEP APNEA 07/30/2011 HERNÁNDEZ DO, ANDIE K 780.57 UNSPECIFIED SLEEP APNEA 07/30/2011 RIANA RANGER AIDE, KEE S 780.57 UNSPECIFIED SLEEP APNEA 07/30/2011 RIANA RANGER AIDE, KEE S 780.57 UNSPECIFIED SLEEP APNEA 07/30/2011 RIANA RANGER AIDE, KEE S 780.57 UNSPECIFIED SLEEP APNEA 05/08/2012 RIANA RANGER AIDE, KEE S 338.29 CHRONIC PAIN 05/08/2012 RIANA RANGER AIDE, KEE S 414.00 CAD 05/08/2012 RIANA RANGER AIDE, KEE S V18.0 FAMILY HISTORY OF DIABETES MELLITUS 05/08/2012 RIANA RANGER AIDE, KEE S 338.29 CHRONIC PAIN 05/08/2012 RIANA [...] FAMILY HISTORY OF DIABETES MELLITUS 05/08/2012 RIANA RANGER AIDE, KEE S 338.29 CHRONIC PAIN 05/08/2012 RIANA RANGER AIDE, KEE S 414.00 CAD 05/08/2012 RIANA RANGER AIDE, KEE S V18.0 FAMILY HISTORY OF DIABETES MELLITUS 06/24/2012 RIANA RANGER AIDE, KEE S V04.81 FLU DX (MEDICARE ONLY) 06/24/2012 RIANA RANGER AIDE, KEE S V04.81 FLU DX (MEDICARE ONLY) 06/24/2012 RIANA RANGER AIDE, KEE S V04.81 FLU DX (MEDICARE ONLY) 06/24/2012 V04.81 FLU DX ( MEDICARE ONLY) 06/24/2012 ZAFAR AVALOS MD V04.81 FLU DX (MEDICARE ONLY) 06/24/2012 ANDIE HERNÁNDEZ DO V04.81 FLU DX (MEDICARE ONLY) 06/24/2012 RIANA RANGER AIDE, KEE S V04.81 FLU DX (MEDICARE ONLY) 06/24/2012 RIANA LIN, KEE S V04.81 FLU DX (MEDICARE ONLY) 06/24/2012 RIANA RANGER AIDE, KEE S V04.81 FLU DX (MEDICARE ONLY) 10/22/2012 RIANA LIN, KEE S 354.0 CARPAL TUNNEL SYNDROME 10/22/2012 354.0 CARPAL TUNNEL SYNDROME 10/22/2012 ZAFAR AVALOS MD 354.0 CARPAL TUNNEL SYNDROME 10/22/2012 ANDIE HERNÁNDEZ DO 354.0 CARPAL TUNNEL SYNDROME 10/22/2012 RIANA RANGER AIDE, KEE S 354.0 CARPAL TUNNEL SYNDROME 10/22/2012 RIANA RANGER AIDE, KEE S 354.0 CARPAL TUNNEL SYNDROME 10/22/2012 RIANA RANGER AIDE, KEE S 354.0 CARPAL TUNNEL SYNDROME 04/13/2013 780.2 SYNCOPE 04/13/2013 ZAFAR AVALOS MD 780.2 SYNCOPE 04/13/2013 ANDIE HERNÁNDEZ DO 780.2 SYNCOPE 04/13/2013 RIANA RANGER AIDE, KEE S 780.2 SYNCOPE 04/13/2013 RIANA RANGER AIDE, KEE S 780.2 SYNCOPE 04/13/2013 RIANA LIN, KEE S 780.2 SYNCOPE 04/17/2013 493.90 ASTHMA UNSPECIFIED 04/17/2013 ZAFAR AVALOS MD 493.90 ASTHMA UNSPECIFIED 04/17/2013 ANDIE HERNÁNDEZ DO 493.90 ASTHMA UNSPECIFIED 04/17/2013 RIANA RANGER AIDE, KEE S 493.90 ASTHMA UNSPECIFIED 04/17/2013 RIANA RANGER AIDE, KEE S 493.90 ASTHMA UNSPECIFIED 04/17/2013 RIANA RANGER AIDE, KEE S 493.90 ASTHMA UNSPECIFIED 04/27/2013 ZAFAR AVALOS MD 327.23 sleep apnea 04/27/2013 ANDIE HERNÁNDEZ DO 327.23 sleep apnea 04/27/2013 RIANA RANGER AIDE, KEE S 327.23 sleep apnea 04/27/2013 RIANA RANGER AIDE, KEE S 327.23 sleep apnea 04/27/2013 RIANA RANGER AIDE, KEE S 327.23 sleep apnea 11/10/2013 RIANA RANGER AIDE, KEE S 698.9 PRURITUS NOS 11/10/2013 RIANA RANGER AIDE, KEE S 698.9 PRURITUS NOS 11/10/2013 RIANA RANGER AIDE, KEE S 698.9 PRURITUS NOS 01/13/2014 TIMO [...] GELLENDER DO, LAZARO Olson Ot 414.00 11/23/2014 [facility] DO, LAZARO Olson Ot 414.2 11/23/2014 [facility] DO, LAZARO Olson Ot 414.8 11/23/2014 [facility], LAZARO Olson Ot 493.20 11/23/2014 [facility], LAZARO Olson Ot 715.90 11/23/2014 [facility] DO, LAZARO Olson Ot 724.5 11/23/2014 [facility] DO, LAZARO Olson Ot V12.54 11/23/2014 [facility] Ot V15.81 11/23/2014 [facility] Olson Ot V45.02 11/23/2014 [facility] Olson Ot V45.81 11/23/2014 [facility] Olson Ot V45.82 11/23/2014 [facility] DO, LAZARO Olson Ot V85.41 11/26/2014 [facility], LAZARO Olson Ot 272.0 PURE HYPERCHOLESTEROLEM 11/26/2014 [facility], LAZARO Olson Ot 278.01 MORBID OBESITY 11/26/2014 [facility], LAZARO Olson Ot 305.1 TOBACCO USE DISORDER 11/26/2014 [facility], LAZARO Olson Ot 327.23 OBSTRUCTIVE SLEEP APNEA (ADULT) (PEDIATR 11/26/2014 [facility], LAZARO Olson Ot 338.29 OTHER CHRONIC PAIN 11/26/2014 [facility], LAZARO Olson Ot 401.9 HYPERTENSION NOS 11/26/2014 [facility], LAZARO Olson Ot 411.1 INTERMED CORONARY SYND 11/26/2014 [facility], LAZARO Olson Ot 412 OLD MYOCARDIAL INFARCT 11/26/2014 [facility], LAZARO Olson Ot 414.00 CORON ATHEROSCLER NOS TYPE VESSEL, NATIV 11/26/2014 [facility], LAZARO Olson Ot 414.2 CHRONIC TOTAL OCCLUSION OF CORONARY SOFYA 11/26/2014 [facility], LAZARO Olson Ot 414.8 CHR ISCHEMIC HRT DIS NEC 11/26/2014 [facility], LAZARO Olson Ot 493.20 CHRONIC OBSTRUCTIVE ASTHMA, NOS 11/26/2014 [facility], LAZARO Olson Ot 715.90 OSTEOARTHROS NOS-UNSPEC 11/26/2014 [facility], LAZARO Olson Ot 724.5 BACKACHE NOS 11/26/2014 [facility], LAZARO Olson Ot V12.54 PERSONAL HX OF [...] OF TEETH AND S 06/14/2015 [employer]AS [employer] SALES Ot 401.9 06/14/2015 [employer] SAL[employer] Ot 414.00 06/14/2015 [employer] SALES Ot 429.9 06/14/2015 [employer] SALES Ot V45.02 07/26/2015 KATHLEEN SWANSON FACC, ALI FACP CCDS Ot E66.01 MORBID (SEVERE) OBESITY DUE TO EXCESS CA 07/26/2015 KATHLEEN SWANSON FACC, ALI FACP CCDS Ot E78.5 HYPERLIPIDEMIA, UNSPECIFIED 07/26/2015 KATHLEEN SWANSON FACC, ALI FACP CCDS Ot F17.200 NICOTINE DEPENDENCE, UNSPECIFIED, UNCOMP 07/26/2015 KATHLEEN SWANSON FACC, ALFREDO FACP CCDS Ot I25.10 ATHSCL HEART DISEASE OF [place] CORONARY 07/26/2015 KATHLEEN SWANSON FACC, ALI FACP [...] FACC, ALI FACP CCDS Ot Z79.899 OTHER SYSTEMS DEVELOPMENT CONSULTANT (CURRENT) DRUG THERAPY 07/26/2015 KATHLEEN SWANSON FACC, ALI FACP CCDS Ot Z91.19 PATIENT'S NONCOMPLIANCE W [facility] TR 07/26/2015 KATHLEEN SWANSON FACC, ALI [...] INDEX 40.0-44.9, ADULT 03/22/2016 ARUN, JOS L [employer] PRES[employer] SALES Ot R07.9 CHEST PAIN, UNSPECIFIED 04/19/2016 BAIMA, JOS L [employer] SAL[employer] Ot E78.4 OTHER HYPERLIPIDEMIA 04/19/2016 BAIMA, JOS L [employer] SALES Ot G47.33 OBSTRUCTIVE SLEEP APNEA (ADULT) (PEDIATR 04/19/2016 BAIMA, JOS L [employer] PRESIDENT [employer] SALES Ot I25.10 ATHSCL HEART DISEASE OF [place] CORONARY 04/19/2016 BAIMA, JOS L [employer] PRES[employer] SALES Ot I25.5 ISCHEMIC CARDIOMYOPATHY 04/19/2016 BAIMA, JOS L [employer] PRES[employer] SALES Ot I65.23 OCCLUSION AND STENOSIS OF BILATERAL [place] 04/19/2016 IRINEOMA, JOS L [employer] PRESIDENT [employer] SALES Ot J43.8 OTHER EMPHYSEMA 04/19/2016 BAIMA, JOS L [employer] SALES Ot R07.9 CHEST PAIN, UNSPECIFIED 04/19/2016 BAIMA, JOS L [employer] SALES Ot Z72.0 TOBACCO USE 05/01/2016 BAIMA, JOS L [employer] SALES Ot 401.9 HYPERTENSION NOS 05/01/2016 BAIMA, JOS L [employer] SAL[employer] Ot 414.00 CORON ATHEROSCLER NOS TYPE VESSEL, NATIV 05/01/2016 BAIMA, JOS L [employer] SALES Ot 429.9 HEART DISEASE NOS 05/01/2016 BAIMA, JOS L [employer] SALES Ot V45.02 AUTO IMPLANTABLE CARDIAC DEFIBRILLATOR I 05/01/2016 BAIMA, JOS L [employer] PRES[employer] SALES Ot E78.4 OTHER HYPERLIPIDEMIA 05/01/2016 IRINEOJOS LIN REG[employer]ICE PRESIDENT LIFE SALES Ot G47.33 OBSTRUCTIVE SLEEP APNEA (ADULT) (PEDIATR 05/01/2016 JOS DIAS [employer] PRESIDENT LIFE SALES Ot I25.10 ATHSCL HEART DISEASE OF [place] CORONARY 05/01/2016 IRINEOJOS LIN [employer]ION[employer]ICE PRESIDENT LIFE SALES Ot I25.5 ISCHEMIC CARDIOMYOPATHY 05/01/2016 IRINEOJOS LIN [employer] VICE PRESIDENT LIFE SALES Ot I65.23 OCCLUSION AND STENOSIS OF BILATERAL [place] 05/01/2016 IRINEODELIA JOS Rudd REG[employer] VICE PRESIDENT LIFE SALES Ot J43.8 OTHER EMPHYSEMA 05/01/2016 IRINEOJOS LIN [employer] PRESIDENT [employer] SALES Ot R07.9 CHEST PAIN, UNSPECIFIED 05/01/2016 IRINEOJOS LIN [employer] PRES[employer] SALES Ot Z72.0 TOBACCO USE 05/02/2016 KATHLEEN SWANSON FACC, ALI FACP CCDS Ot E78.5 HYPERLIPIDEMIA, UNSPECIFIED 05/02/2016 KATHLEEN SWANSON FACC, ALI FACP CCDS Ot G47.30 SLEEP APNEA, UNSPECIFIED 05/02/2016 KATHELEN SWANSON FACC, ALI FACP CCDS Ot I25.119 ATHSCL HEART DISEASE OF [place] COR ART W 05/02/2016 KATHLEEN SWANSON FACC, [...] FACC, ALI FACP CCDS Ot Z79.899 OTHER SENIOR LIVING (CURRENT) DRUG THERAPY 05/02/2016 KATHLEEN SWANSON FACC, ALI FACP CCDS Ot Z91.19 PATIENT'S NONCOMPLIANCE W [facility] TR 05/02/2016 KATHLEEN SWANSON FACC, ALI FACP CCDS Ot Z95.810 PRESENCE OF AUTOMATIC (IMPLANTABLE) CARD 05/08/2016 [employer] SAL[employer] Ot 401.9 HYPERTENSION NOS 05/08/2016 JOS DIAS [employer] SALES Ot 414.00 CORON ATHEROSCLER NOS TYPE VESSEL, NATIV 05/08/2016 JOS DIAS L [employer] SALES Ot 429.9 HEART DISEASE NOS 05/08/2016 JOS DIAS [employer] SALES Ot V45.02 AUTO IMPLANTABLE CARDIAC DEFIBRILLATOR I 05/08/2016 JOS DIAS [employer] SAL[employer] Ot E78.4 OTHER HYPERLIPIDEMIA 05/08/2016 BAIJOS LIN L [employer] PRESIDENT [employer] SALES Ot G47.33 OBSTRUCTIVE SLEEP APNEA (ADULT) (PEDIATR 05/08/2016 JOS DIAS [employer] SALES Ot I25.10 ATHSCL HEART DISEASE OF [place] CORONARY 05/08/2016 BAIJOS ILN L REGIONAL VICE PRESIDENT [employer] SALES Ot I25.5 ISCHEMIC CARDIOMYOPATHY 05/08/2016 JOS DIAS [employer] SALES Ot I65.23 OCCLUSION AND STENOSIS OF BILATERAL [place] 05/08/2016 JOS DIAS [employer] SALES Ot J43.8 OTHER EMPHYSEMA 05/08/2016 JOS [employer]AS [employer] SALES Ot R07.9 CHEST PAIN, UNSPECIFIED 05/08/2016 IRINEOJOS LIN L [employer] PRESIDENT [employer] SALES Ot Z72.0 TOBACCO USE 05/08/2016 VELMA LAZARO Wesley Ot M54.32 SCIATICA, LEFT SIDE 05/08/2016 KATHLEEN SWANSON FACC, ALI FACP CCDS Ot E78.5 HYPERLIPIDEMIA, UNSPECIFIED 05/08/2016 KATHLEEN SWANSON FACC, ALI FACP CCDS Ot G47.30 SLEEP APNEA, UNSPECIFIED 05/08/2016 KATHLEEN SWANSON FACC, ALI FACP CCDS Ot I25.119 ATHSCL HEART DISEASE OF [place] COR ART W 05/08/2016 KATHLEEN SWANSON FACC, [...] FACC, ALI FACP CCDS Ot Z79.899 OTHER SYSTEMS DEVELOPMENT CONSULTANT (CURRENT) DRUG THERAPY 05/08/2016 KATHLEEN SWANSON FACC, ALI FACP CCDS Ot Z91.19 PATIENT'S NONCOMPLIANCE W [facility] TR 05/08/2016 KATHLEEN SWANSON FACC, ALI FACP CCDS Ot Z95.810 PRESENCE OF AUTOMATIC (IMPLANTABLE) CARD 05/10/2016 KATHLEEN SWANSON FACC ALI FACP CCDS Ot E78.5 HYPERLIPIDEMIA, UNSPECIFIED 05/10/2016 KATHLEEN SWANSON FACC, ALI FACP CCDS Ot G47.30 SLEEP APNEA, UNSPECIFIED 05/10/2016 KATHLEEN SWANSON FACC, ALI FACP CCDS Ot I25.119 ATHSCL HEART DISEASE OF [place] COR ART W 05/10/2016 KATHLEEN SWANSON FACC [...] FACC, ALI FACP CCDS Ot Z79.899 OTHER SYSTEMS DEVELOPMENT CONSULTANT (CURRENT) DRUG THERAPY 05/10/2016 KATHLEEN SWANSON FACC, ALI FACP CCDS Ot Z91.19 PATIENT'S NONCOMPLIANCE W [facility] TR 05/10/2016 KATHLEEN SWANSON FACC, ALI FACP CCDS Ot Z95.810 PRESENCE OF AUTOMATIC (IMPLANTABLE) CARD 05/11/2016 ALFREDO WANG MD, FACC FACP CCDS Ot E78.5 HYPERLIPIDEMIA, UNSPECIFIED 05/11/2016 KATHLEEN SWANSON FACC, ALI FACP CCDS Ot G47.30 SLEEP APNEA, UNSPECIFIED 05/11/2016 KATHLEEN SWANSON FACC, ALI FACP CCDS Ot I25.119 ATHSCL HEART DISEASE OF [place] COR ART W 05/11/2016 KATHLEEN SWANSON FACC, [...] FACC, ALFREDO FACP CCDS Ot Z79.899 OTHER SYSTEMS DEVELOPMENT CONSULTANT (CURRENT) DRUG THERAPY 05/11/2016 KATHLEEN SWANSON FACC, ALFREDO PATTERSONP CCDS Ot Z91.19 PATIENT'S NONCOMPLIANCE W [facility] TR 05/11/2016 ALFREDO WANG MD, FACC FACP CCDS Ot Z95.810 PRESENCE OF AUTOMATIC (IMPLANTABLE) CARD 05/25/2016 VELMA SANCHEZ, LAZARO Olson Ot M54.32 SCIATICA, LEFT SIDE 06/14/2016 VELMA SANCHEZ LAZARO A Ot M54.32 SCIATICA, LEFT SIDE 07/04/2016 GELLENDER DO, LAZARO A Ot M54.32 SCIATICA, LEFT SIDE 07/14/2016 ALLYN BIRDP Ot I10 ESSENTIAL (PRIMARY) HYPERTENSION 07/14/2016 ALLYN BIRD [employer] PRESIDENT LIFE SALES Ot I25.10 ATHSCL HEART DISEASE OF [place] CORONARY 07/14/2016 ALLYN BIRD [employer] SALES Ot J44.9 CHRONIC OBSTRUCTIVE PULMONARY DISEASE, U 07/14/2016 ALLYN BIRD [employer] SALES Ot M47.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, DIONTE 07/14/2016 ALLYN BIRD [employer] SALES Ot M48.06 SPINAL STENOSIS, LUMBAR REGION 07/14/2016 ALLYN BIRD [employer] SALES Ot M54.41 LUMBAGO WITH SCIATICA, RIGHT SIDE 07/14/2016 ALLYN BIRD [employer] SALES Ot Z79.02 SENIOR LIVING (CURRENT) USE OF ANTITHROMBOTI 07/14/2016 ALLYN BIRDP Ot Z79.82 SENIOR LIVING (CURRENT) USE OF ASPIRIN 07/14/2016 ALLYN BIRDP Ot Z79.899 OTHER SYSTEMS DEVELOPMENT CONSULTANT (CURRENT) DRUG THERAPY 07/14/2016 MARGE, [employer] PRES[employer] LIFE SALES Ot Z95.0 PRESENCE OF CARDIAC PACEMAKER 07/14/2016 MARGE, [employer] LIFE SALES Ot Z95.5 PRESENCE OF CORONARY ANGIOPLASTY IMPLANT 07/16/2016 MARGE, [employer] LIFE SALES Ot I10 ESSENTIAL (PRIMARY) HYPERTENSION 07/16/2016 MARGE, [employer] LIFE SALES Ot I25.10 ATHSCL HEART DISEASE OF [place] CORONARY 07/16/2016 MARGE, [employer] LIFE SALES Ot J44.9 CHRONIC OBSTRUCTIVE PULMONARY DISEASE, U 07/16/2016 MARGE [employer] SALES Ot M47.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, DIONTE 07/16/2016 MARGE, [employer] LIFE SALES Ot M48.06 SPINAL STENOSIS, LUMBAR REGION 07/16/2016 MARGE, [employer]IDENT LIFE SALES Ot M54.41 LUMBAGO WITH SCIATICA, RIGHT SIDE 07/16/2016 MARGE [employer] LIFE SALES Ot Z79.02 SENIOR LIVING (CURRENT) USE OF ANTITHROMBOTI 07/16/2016 MARGE, [employer] LIFE SALES Ot Z79.82 SENIOR LIVING (CURRENT) USE OF ASPIRIN 07/16/2016 MARGE, [employer] LIFE SALES Ot Z79.899 OTHER SYSTEMS DEVELOPMENT CONSULTANT (CURRENT) DRUG THERAPY 07/16/2016 MARGE [employer] LIFE SALES Ot Z95.0 PRESENCE OF CARDIAC PACEMAKER 07/16/2016 MARGE, [employer] PRESIDENT LIFE SALES Ot Z95.5 PRESENCE OF CORONARY ANGIOPLASTY IMPLANT 07/21/2016 MARGE [employer] LIFE SALES Ot I10 ESSENTIAL (PRIMARY) HYPERTENSION 07/21/2016 MARGE [employer] LIFE SALES Ot I25.10 ATHSCL HEART DISEASE OF [place] CORONARY 07/21/2016 MARGE [employer] LIFE SALES Ot J44.9 CHRONIC OBSTRUCTIVE PULMONARY DISEASE, U 07/21/2016 MARGE [employer] LIFE SALES Ot M47.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, DIONTE 07/21/2016 MARGE [employer] SALES Ot M48.06 SPINAL STENOSIS, LUMBAR REGION 07/21/2016 MARGE, [employer] LIFE SALES Ot M54.41 LUMBAGO WITH SCIATICA, RIGHT SIDE 07/21/2016 MARGE, [employer]IDENT LIFE SALES Ot Z79.02 SYSTEMS DEVELOPMENT CONSULTANT (CURRENT) USE OF ANTITHROMBOTI 07/21/2016 MARGE, [employer]IDENT LIFE SALES Ot Z79.82 SENIOR LIVING (CURRENT) USE OF ASPIRIN 07/21/2016 MARGE, [employer] LIFE SALES Ot Z79.899 OTHER SYSTEMS DEVELOPMENT CONSULTANT (CURRENT) DRUG THERAPY 07/21/2016 ALLYN [employer] LIFE SALES Ot Z95.0 PRESENCE OF CARDIAC PACEMAKER 07/21/2016 MARGEALLYN Powell [employer] PRESIDENT LIFE SALES Ot Z95.5 PRESENCE OF CORONARY ANGIOPLASTY IMPLANT 12/25/2016 KATHLEEN SWANSON FACC, ALI FACP CCDS Ot I25.10 ATHSCL HEART DISEASE OF [place] CORONARY 12/26/2016 KATHLEEN SWANSON FACC, ALI FACP [...] CCDS Ot I25.10 ATHSCL HEART DISEASE OF [place] CORONARY 12/26/2016 KATHLEEN SWANSON FACC, ALI FACP [...] CCDS Ot I25.10 ATHSCL HEART DISEASE OF [place] CORONARY 01/21/2017 KATHLEEN PATTERSONC, ALI FACP CCDS Ot I25.5 ISCHEMIC CARDIOMYOPATHY 01/21/2017 KATHLEEN PATTERSONC, ALI FACP CCDS Ot I65.23 OCCLUSION AND STENOSIS OF BILATERAL [place] 01/21/2017 KATHLEEN SWANSON FACC, ALI FACP CCDS Ot J43.8 OTHER EMPHYSEMA 01/21/2017 KATHLEEN SWANSON FACC, ALI FACP CCDS Ot Z72.0 TOBACCO USE 01/21/2017 VELMA SANCHEZ LAZARO Wesley Ot M50.321 OTHER CERVICAL DISC DEGENERATION AT C4-C 01/23/2017 KATHLEEN SWANSON FACC, ALI FACP CCDS Ot E78.5 HYPERLIPIDEMIA, UNSPECIFIED 01/23/2017 KATHLEEN SWANSON FACC, ALI FACP CCDS Ot G47.30 SLEEP APNEA, UNSPECIFIED 01/23/2017 KATHLEEN SWANSON FACC, ALI FACP CCDS Ot I25.110 ATHSCL HEART DISEASE OF [place] COR ART W 01/23/2017 KATHLEEN SWANSON FACC, ALI FACP CCDS Ot J44.9 CHRONIC OBSTRUCTIVE PULMONARY DISEASE, U 01/23/2017 KATHLEEN SWANSON FACC, ALI FACP CCDS Ot T82.857A STENOSIS OF OTHER CARDIAC PROSTH DEV/GRF 01/23/2017 KATHLEEN SWANSON FACC, ALI FACP CCDS Ot Z72.0 TOBACCO USE 01/23/2017 KATHLEEN SWANSON FACC, ALI FACP CCDS Ot Z79.899 OTHER SYSTEMS DEVELOPMENT CONSULTANT (CURRENT) DRUG THERAPY 01/23/2017 KATHLEEN SWANSON FACC, ALI FACP CCDS Ot Z91.19 PATIENT'S NONCOMPLIANCE W [facility] 01/23/2017 KATHLEEN SWANSON FACC, ALI FACP CCDS Ot Z95.1 PRESENCE OF AORTOCORONARY BYPASS GRAFT 01/23/2017 KATHLEEN SWANSON FACC, ALI FACP CCDS Ot Z95.810 PRESENCE OF AUTOMATIC (IMPLANTABLE) CARD 12/10/2017 [facility]OS [facility]AS [employer] LIFE SALES Ot 401.9 HYPERTENSION NOS 12/10/2017 JOS DIAS [employer] PRES[employer] SALES Ot 414.00 CORON ATHEROSCLER NOS TYPE VESSEL, NATIV 12/10/2017 JOS DIAS L [employer] V[employer] PRESIDENT LIFE SALES Ot 429.9 HEART DISEASE NOS 12/10/2017 JOS DIAS [employer] PRESIDENT LIFE SALES Ot V45.02 AUTO IMPLANTABLE CARDIAC DEFIBRILLATOR I 12/10/2017 JOS DIAS [employer] PRES[employer] LIFE SALES Ot E78.4 OTHER HYPERLIPIDEMIA 12/10/2017 JOS DIAS L [employer] V[employer] PRESIDENT LIFE SALES Ot G47.33 OBSTRUCTIVE SLEEP APNEA (ADULT) (PEDIATR 12/10/2017 JOS DIAS L [employer]ION[employer] VICE PRESIDENT LIFE SALES Ot I25.10 ATHSCL HEART DISEASE OF [place] CORONARY 12/10/2017 JOS DIAS L REGIONAL VICE PRESIDENT LIFE SALES Ot I25.5 ISCHEMIC CARDIOMYOPATHY 12/10/2017 JOS DIAS [employer] PRESIDENT LIFE SALES Ot I65.23 OCCLUSION AND STENOSIS OF BILATERAL [place]CH[place] 12/10/2017 JOS DIAS [employer] PRES[employer] SALES Ot J43.8 OTHER EMPHYSEMA 12/10/2017 JOS DIAS [employer] PRES[employer] SALES Ot R07.9 CHEST PAIN, UNSPECIFIED 12/10/2017 J[employer]AS [employer] PRES[employer] SALES Ot Z72.0 TOBACCO USE 12/10/2017 LAZARO CARREON DO A Ot M54.32 SCIATICA, LEFT SIDE 12/10/2017 [facility] DO, LAZARO A Ot M54.32 SCIATICA, [...] CCDS Ot I25.10 ATHSCL HEART DISEASE OF [place] CORONARY 12/10/2017 KATHLEEN SWANSON FACC, ALI FACP [...] CCDS Ot I25.10 ATHSCL HEART DISEASE OF [place] CORONARY 12/11/2017 KATHLEEN SWANSON FACC, ALFREDO FACP [...] SWANSON FACC, ALI FACP CCDS Ot Z79.02 SENIOR LIVING (CURRENT) USE OF ANTITHROMBOTI 12/11/2017 ALFREDO WANG MD, FACC FACP CCDS Ot Z79.82 SENIOR LIVING (CURRENT) USE OF ASPIRIN 12/11/2017 KATHLEEN SWANSON FACC, ALFREDO FACP CCDS Ot Z79.899 OTHER SYSTEMS DEVELOPMENT CONSULTANT (CURRENT) DRUG THERAPY 12/11/2017 KATHLEEN SWANSON FACC, [...] CCDS Ot I25.10 ATHSCL HEART DISEASE OF [place] CORONARY 12/12/2017 KATHLEEN SWANSON FACC, ALFREDO FACP [...] WANG MD, FACC FACP CCDS Ot Z79.02 SYSTEMS DEVELOPMENT CONSULTANT (CURRENT) USE OF ANTITHROMBOTI 12/12/2017 ALFREDO WANG MD, FACC FACP CCDS Ot Z79.82 SENIOR LIVING (CURRENT) USE OF ASPIRIN 12/12/2017 ALFREDO WANG MD, FACC FACP CCDS Ot Z79.899 OTHER SENIOR LIVING (CURRENT) DRUG THERAPY 12/12/2017 ALFREDO WANG MD, [...] K Ot I25.10 ATHSCL HEART DISEASE OF [place] CORONARY 03/19/2018 FREDERICK DING DOA K Ot I25.2 OLD MYOCARDIAL INFARCTION 03/19/2018 FREDERICK DING DOA K Ot J32.9 CHRONIC SINUSITIS, UNSPECIFIED 03/19/2018 FREDERICK DING DOA K Ot J44.9 CHRONIC OBSTRUCTIVE PULMONARY DISEASE, U 03/19/2018 FREDERICK DING DOA K Ot K04.7 PERIAPICAL ABSCESS WITHOUT SINUS 03/19/2018 TOÑA DESHAWN Miguel Ot K05.219 AGGRESSIVE PERIODONTITIS, LOCALIZED, UNS 03/19/2018 TOÑA DESHAWN K Ot Z79.82 SENIOR LIVING (CURRENT) USE OF ASPIRIN 03/19/2018 TOÑA DESHAWN Miguel Ot Z86.73 PRSNL HX OF TIA (TIA), AND CEREB INFRC W 03/19/2018 TOÑA DESHAWN K Ot Z88.0 ALLERGY STATUS TO PENICILLIN 03/19/2018 TOAÑ FREDERICKA Miguel Ot Z88.6 ALLERGY STATUS TO [...] Miguel Ot I25.10 ATHSCL HEART DISEASE OF [place] CORONARY 03/21/2018 TOÑA SANCHEZ DESHAWN Miguel Ot I25.2 OLD MYOCARDIAL INFARCTION 03/21/2018 DESHAWN DING DO Ot J32.9 CHRONIC SINUSITIS, UNSPECIFIED 03/21/2018 TOÑA DESHAWN Ot J44.9 CHRONIC OBSTRUCTIVE PULMONARY DISEASE, U 03/21/2018 TOÑA DESHAWN K Ot K04.7 PERIAPICAL ABSCESS WITHOUT SINUS 03/21/2018 TOÑA SANCHEZ DESHAWN Miguel Ot K05.219 AGGRESSIVE PERIODONTITIS, LOCALIZED, UNS 03/21/2018 TOÑA DESHAWN K Ot Z79.82 SENIOR LIVING (CURRENT) USE OF ASPIRIN 03/21/2018 DESHAWN DING [...] AUTOMATIC (IMPLANTABLE) CARD 05/26/2018 BAIMA, JOS L [employer] VICE PRESIDENT LIFE SALES Ot 401.9 HYPERTENSION NOS 05/26/2018 BAIMA, JOS L [employer]ICE PRESIDENT LIFE SALES Ot 414.00 CORON ATHEROSCLER NOS TYPE VESSEL, NATIV 05/26/2018 BAIMA, JOS L [employer] VICE PRESIDENT LIFE SALES Ot 429.9 HEART DISEASE NOS 05/26/2018 BAIMA, JOS L [employer] PRESIDENT LIFE SALES Ot V45.02 AUTO IMPLANTABLE CARDIAC DEFIBRILLATOR I 05/26/2018 BAIMA, OJS L REGIONAL VICE PRESIDENT LIFE SALES Ot E78.4 OTHER HYPERLIPIDEMIA 05/26/2018 BAIMA, JOS L [employer]ICE PRESIDENT LIFE SALES Ot G47.33 OBSTRUCTIVE SLEEP APNEA (ADULT) (PEDIATR 05/26/2018 BAIMA, JOS L [employer]ION[employer] VICE PRESIDENT LIFE SALES Ot I25.10 ATHSCL HEART DISEASE OF [place] CORONARY 05/26/2018 BAIMA, JOS L [employer] PRESIDENT LIFE SALES Ot I25.5 ISCHEMIC CARDIOMYOPATHY 05/26/2018 BAIMA, JOS L [employer]ICE PRESIDENT LIFE SALES Ot I65.23 OCCLUSION AND STENOSIS OF BILATERAL [place] 05/26/2018 BAIMA, JOS L [employer]IONAL VICE PRESIDENT LIFE SALES Ot J43.8 OTHER EMPHYSEMA 05/26/2018 BAIMA, JOS L [employer] PRESIDENT LIFE SALES Ot R07.9 CHEST PAIN, UNSPECIFIED 05/26/2018 IRINEOMA, JOS L [employer]IONAL VICE PRESIDENT LIFE SALES Ot Z72.0 TOBACCO USE 05/26/2018 LAZARO CARREON [...] CHRONIC PAIN SYNDROME 05/26/2018 KATHLEEN SWANSON FACC, [facility] CCDS Ot I25.10 ATHSCL HEART DISEASE OF [place] CORONARY 05/26/2018 KATHLEEN SWANSON FACC, ALI FACP CCDS [...] Olson Ot I25.10 ATHSCL HEART DISEASE OF [place] CORONARY 07/11/2018 GELLENDER DO, LAZARO Olson Ot J44.9 CHRONIC OBSTRUCTIVE PULMONARY DISEASE, U 07/11/2018 GELLENDER DO, LAZARO Olson Ot R04.2 HEMOPTYSIS 07/16/2018 GELLENDER DO, LAZARO Olson Ot F17.200 NICOTINE DEPENDENCE, UNSPECIFIED, UNCOMP 07/16/2018 GELLENDER DO, LAZARO Olson Ot I25.10 ATHSCL HEART DISEASE OF [place] CORONARY 07/16/2018 GELLENDER DO, LAZARO Olson Ot J44.9 CHRONIC OBSTRUCTIVE PULMONARY DISEASE, U 07/16/2018 GELLENDER DO, LAZARO Olson Ot R04.2 HEMOPTYSIS 08/04/2018 GELLENDER DO, LAZARO Olson Ot F17.200 NICOTINE DEPENDENCE, UNSPECIFIED, UNCOMP 08/04/2018 GELLENDER DO, LAZARO Olson Ot I25.10 ATHSCL HEART DISEASE OF [place] CORONARY 08/04/2018 GELLENDER DO, LAZARO Olson Ot J44.9 CHRONIC OBSTRUCTIVE PULMONARY DISEASE, U 08/04/2018 GELLENDER DO, LAZARO A Ot R04.2 HEMOPTYSIS 08/11/2018 KATHLEEN SWANSON FACC, ALI FACP CCDS Ot 272.4 HYPERLIPIDEMIA NEC/NOS 08/11/2018 KATHLENE SWANSON FACC, ALI FACP CCDS Ot 278.01 MORBID OBESITY 08/11/2018 KATHLEEN SWANSON FACC, ALI FACP CCDS Ot 327.23 OBSTRUCTIVE SLEEP APNEA (ADULT) (PEDIATR 08/11/2018 KATHLEEN SWANSON FACC, ALI FACP CCDS Ot 414.00 CORON ATHEROSCLER NOS TYPE VESSEL, NATIV 08/11/2018 KATHLEEN SWANSON FACC, ALI FACP CCDS Ot 429.9 HEART DISEASE NOS 08/11/2018 KATHLEEN SWANSON FACC, ALI FACP CCDS Ot 496 CHR AIRWAY OBSTRUCT NEC 08/11/2018 KATHLEEN SWANSON FACC, ALI FACP CCDS Ot V85.41 BODY MASS INDEX 40.0-44.9, ADULT 08/28/2018 BAIMA, JOS L [employer]IONAL VICE PRESIDENT LIFE SALES Ot 401.9 HYPERTENSION NOS 08/28/2018 BAIMA, JOS L [employer]IONAL VICE PRESIDENT LIFE SALES Ot 414.00 CORON ATHEROSCLER NOS TYPE VESSEL, NATIV 08/28/2018 BAIMA, JOS L [employer]IONAL VICE PRESIDENT LIFE SALES Ot 429.9 HEART DISEASE NOS 08/28/2018 BAIMA, JOS L [employer]IONAL VICE PRESIDENT LIFE SALES Ot V45.02 AUTO IMPLANTABLE CARDIAC DEFIBRILLATOR I 08/28/2018 BAIMA, JOS L [employer]IONAL VICE PRESIDENT LIFE SALES Ot E78.4 OTHER HYPERLIPIDEMIA 08/28/2018 BAIMA, JOS L REGIONAL VICE PRESIDENT LIFE SALES Ot G47.33 OBSTRUCTIVE SLEEP APNEA (ADULT) (PEDIATR 08/28/2018 BAIMA, JOS L [employer]IONAL VICE PRESIDENT LIFE SALES Ot I25.10 ATHSCL HEART DISEASE OF [place] CORONARY 08/28/2018 BAIMA, JOS L REGIONAL VICE PRESIDENT LIFE SALES Ot I25.5 ISCHEMIC CARDIOMYOPATHY 08/28/2018 BAIMA, JOS L [employer]IONAL VICE PRESIDENT LIFE SALES Ot I65.23 OCCLUSION AND STENOSIS OF BILATERAL [place] 08/28/2018 BAIMA, JOS L [employer]IONAL VICE PRESIDENT LIFE SALES Ot J43.8 OTHER EMPHYSEMA 08/28/2018 BAIMA, JOS L [employer]ION[employer] VICE PRESIDENT LIFE SALES Ot R07.9 CHEST PAIN, UNSPECIFIED 08/28/2018 BAIMA, JOS L [employer]ION[employer] VICE PRESIDENT LIFE SALES Ot Z72.0 TOBACCO USE 08/28/2018 LAZARO CARREON DO Ot M54.32 SCIATICA, LEFT SIDE 08/28/2018 LAZARO CARREON DO Ot M54.32 SCIATICA, LEFT SIDE 08/28/2018 KATHLEEN SWANSON FACC, ALI FACP CCDS Ot E66.09 OTHER OBESITY DUE TO EXCESS CALORIES 08/28/2018 KATHLEEN SWANSON FACC, ALI FACP CCDS Ot E78.4 OTHER HYPERLIPIDEMIA 08/28/2018 KATHLEEN SWANSON FACC, ALI FACP CCDS Ot G47.33 OBSTRUCTIVE SLEEP APNEA (ADULT) (PEDIATR 08/28/2018 KATHLEEN PATTERSONC, ALI FACP CCDS Ot G89.4 CHRONIC PAIN SYNDROME 08/28/2018 KATHLEEN SWANSON FACC, ALI FACP CCDS Ot I25.10 ATHSCL HEART DISEASE OF [place] CORONARY 08/28/2018 KATHLEEN SWANSON FACC, ALI FACP CCDS Ot I25.5 ISCHEMIC CARDIOMYOPATHY 08/28/2018 KATHLEEN SWANSON FACC, ALI FACP CCDS Ot I65.23 OCCLUSION AND STENOSIS OF BILATERAL [place] 08/28/2018 KATHLEEN SWANSON FACC, ALI FACP CCDS Ot J43.8 OTHER EMPHYSEMA 08/28/2018 KATHLEEN SWANSON FACC, ALI FACP CCDS Ot Z72.0 TOBACCO USE 08/28/2018 VELMA SANCHEZ, LAZARO Olson Ot M50.321 OTHER CERVICAL DISC DEGENERATION AT C4-C 08/28/2018 VELMA SANCHEZ, LAZARO Olson Ot I51.7 CARDIOMEGALY 08/28/2018 LAZARO CARREON DO Ot R04.2 HEMOPTYSIS 08/28/2018 LAZARO CARREON DO Ot F17.200 NICOTINE DEPENDENCE, UNSPECIFIED, UNCOMP 08/28/2018 VELMA SANCHEZ, LAZARO Olson Ot I25.10 ATHSCL HEART DISEASE OF [place] CORONARY 08/28/2018 LAZARO CARREON DO Ot J44.9 CHRONIC OBSTRUCTIVE PULMONARY DISEASE, U 08/28/2018 LAZARO CARREON DO Ot R04.2 HEMOPTYSIS 08/28/2018 TOÑA SANCHEZ DESHAWN Miguel Ot E78.00 PURE HYPERCHOLESTEROLEMIA, UNSPECIFIED 08/28/2018 TOÑA SANCHEZ DESHAWN K Ot F17.210 NICOTINE DEPENDENCE, CIGARETTES, UNCOMPL 08/28/2018 TOÑA SANCHEZ DESHAWN K Ot I11.0 HYPERTENSIVE HEART DISEASE WITH HEART FA 08/28/2018 TOÑA SANCHEZ DESHAWN K Ot I25.10 ATHSCL HEART DISEASE OF [place] CORONARY 08/28/2018 FREDERICK DING DOA Miguel Ot I25.2 OLD MYOCARDIAL INFARCTION 08/28/2018 TOÑA DESHAWN K Ot J44.9 CHRONIC OBSTRUCTIVE PULMONARY DISEASE, U 08/28/2018 TOÑA DESHAWN SANCHEZ K Ot R04.2 HEMOPTYSIS 08/28/2018 TOÑA DESHAWN K Ot R05 COUGH 08/28/2018 ROZET DESHAWN K Ot Z79.02 SENIOR LIVING (CURRENT) USE OF ANTITHROMBOTI 08/28/2018 TOÑA DESHAWN K Ot Z79.51 SENIOR LIVING (CURRENT) USE OF INHALED STERO 08/28/2018 [facility] DESHAWN K Ot Z79.82 SYSTEMS DEVELOPMENT CONSULTANT (CURRENT) USE OF ASPIRIN 08/28/2018 [facility] DESHAWN K Ot Z86.73 PRSNL HX OF TIA (TIA), AND CEREB INFRC W 08/28/2018 ROZET DESHAWN K Ot Z88.0 ALLERGY STATUS TO PENICILLIN 08/28/2018 [facility] DESHAWN K Ot Z88.5 ALLERGY STATUS TO NARCOTIC AGENT STATUS 08/28/2018 [facility] DESHAWN K Ot Z90.89 ACQUIRED ABSENCE OF OTHER ORGANS 08/28/2018 TOÑA DESHAWN K Ot Z95.0 PRESENCE OF CARDIAC PACEMAKER 08/28/2018 TOÑA DESHAWN K Ot Z95.1 PRESENCE OF AORTOCORONARY BYPASS GRAFT 09/01/2018 TOÑA DESHAWN K Ot E78.00 PURE HYPERCHOLESTEROLEMIA, UNSPECIFIED 09/01/2018 ROZET DESHAWN K Ot F17.210 NICOTINE DEPENDENCE, CIGARETTES, UNCOMPL 09/01/2018 TOÑA DESHAWN K Ot I11.0 HYPERTENSIVE HEART DISEASE WITH HEART FA 09/01/2018 TOÑA DESHAWN K Ot I25.10 ATHSCL HEART DISEASE OF [place] CORONARY 09/01/2018 TOÑA DESHAWN K Ot I25.2 OLD MYOCARDIAL INFARCTION 09/01/2018 TOÑA DESHAWN K Ot J44.9 CHRONIC OBSTRUCTIVE PULMONARY DISEASE, U 09/01/2018 TOÑA DESHAWN K Ot R04.2 HEMOPTYSIS 09/01/2018 TOÑA DESHAWN K Ot R05 COUGH 09/01/2018 TOÑA DESHAWN K Ot Z79.02 SYSTEMS DEVELOPMENT CONSULTANT (CURRENT) USE OF ANTITHROMBOTI 09/01/2018 TOÑA DESHAWN K Ot Z79.51 SENIOR LIVING (CURRENT) USE OF INHALED STERO 09/01/2018 TOÑA DO DESHAWN K Ot Z79.82 SENIOR LIVING (CURRENT) USE OF ASPIRIN 09/01/2018 TOÑA DO DESHAWN K Ot Z86.73 PRSNL HX OF TIA (TIA), AND CEREB INFRC W 09/01/2018 TOÑA DO DESHAWN K Ot Z88.0 ALLERGY STATUS TO PENICILLIN 09/01/2018 TOÑA DO DESHAWN K Ot Z88.5 ALLERGY STATUS TO NARCOTIC AGENT STATUS 09/01/2018 TOÑA DO DESHAWN K Ot Z90.89 ACQUIRED ABSENCE OF OTHER ORGANS 09/01/2018 TOÑA DO DESHAWN K Ot Z95.0 PRESENCE OF CARDIAC PACEMAKER 09/01/2018 TOÑA DO DESHAWN K Ot Z95.1 PRESENCE OF AORTOCORONARY BYPASS GRAFT 09/03/2018 TOÑA DO DESHAWN K Ot R04.2 HEMOPTYSIS 09/06/2018 TOÑA DO DESHAWN K Ot E78.00 PURE HYPERCHOLESTEROLEMIA, UNSPECIFIED 09/06/2018 TOÑA DO DESHAWN K Ot F17.210 NICOTINE DEPENDENCE, CIGARETTES, UNCOMPL 09/06/2018 TOÑA DO DESHAWN K Ot I11.0 HYPERTENSIVE HEART DISEASE WITH HEART FA 09/06/2018 TOÑA DO DESHAWN K Ot I25.10 ATHSCL HEART DISEASE OF [place] CORONARY 09/06/2018 TOÑA DO DESHAWN K Ot I25.2 OLD MYOCARDIAL INFARCTION 09/06/2018 TOÑA DO DESHAWN K Ot J44.9 CHRONIC OBSTRUCTIVE PULMONARY DISEASE, U 09/06/2018 TOÑA DO DESHAWN K Ot R04.2 HEMOPTYSIS 09/06/2018 TÑOA DO DESHAWN K Ot R05 COUGH 09/06/2018 TOÑA DO DESHAWN K Ot Z79.02 SYSTEMS DEVELOPMENT CONSULTANT (CURRENT) USE OF ANTITHROMBOTI 09/06/2018 TOÑA DOFREDERICKA K Ot Z79.51 SYSTEMS DEVELOPMENT CONSULTANT (CURRENT) USE OF INHALED STERO 09/06/2018 TOÑA DO DESHAWN K Ot Z79.82 SYSTEMS DEVELOPMENT CONSULTANT (CURRENT) USE OF ASPIRIN 09/06/2018 TOÑA DO DESHAWN K Ot Z86.73 PRSNL HX OF TIA (TIA), AND CEREB INFRC W 09/06/2018 TOÑA DO DESHAWN K Ot Z88.0 ALLERGY STATUS TO PENICILLIN 09/06/2018 DESHAWN DING DO Ot Z88.5 ALLERGY STATUS TO NARCOTIC AGENT STATUS 09/06/2018 DESHAWN DING DO Ot Z90.89 ACQUIRED ABSENCE OF OTHER ORGANS 09/06/2018 DESHAWN DING DO Ot Z95.0 PRESENCE OF CARDIAC PACEMAKER 09/06/2018 DESHAWN DING DO Ot Z95.1 PRESENCE OF AORTOCORONARY BYPASS GRAFT 09/23/2018 DESHAWN DING DO Ot R04.2 HEMOPTYSIS Procedures Code Description Performed By Performed On G0008 FLU ADMINISTRATION ( MEDICARE ONLY) 06/24/2012 Q2038 FLUZONE (MEDICARE OFFICE VISIT ONLY) 06/24/2012 24931 EKG, TRACING (IN-HOUSE) 06/27/2012 88656 OXIMETRY - OVERNIGHT 04/15/2013 33677 PULMONARY FUNCTION TEST (IN- HOUSE) 04/17/2013 83739 RESPIRATORY FLOW VOLUME LOOP 04/17/2013 92874 PULMONARY EDUCATION 04/17/2013 G0437 TOBACCO-USE WIRELESS FIELD TECHNICIAN>10MIN 04/17/2013 91633 OXIMETRY - OVERNIGHT 04/29/2013 98869 SLEEP STUDY 04/29/2013 49948 OXIMETRY - OVERNIGHT 07/01/2013 34332 URINE DRUG SCREEN (IN-HOUSE ) 11/10/2013 71506 GLUCOSE FINGER STICK 11/10/2013 91613 A1C (IN-HOUSE) 11/10/2013 60824 AMERITOX 03/22/2014 00.47 INSERTION OF THREE VASCULAR [...] resistant Staphylococcus aureus (MRSA) screening culture NEG [facility] Automated blood complete blood count (hemogram) panel [...] 03/19/18 14:19 Bacterial blood culture NG NRG PT panel in platelet poor plasma by coagulation assay - 08/28/18 19:58 Prothrombin time (PT) in platelet poor plasma by coagulation assay 13.2 s 12.2-14.7 INR in platelet poor plasma or blood by coagulation assay 1.0 0.8-1.4 Activated partial thromboplastin time (aPTT) in platelet poor plasma bycoagulation assay - 08/28/18 19:58 Activated partial thromboplastin time (aPTT) in platelet poor plasma bycoagulation assay 29 s 24-35 Complete blood count (CBC) with automated white blood cell (WBC) differential - 08/28/18 19:58 Blood leukocytes automated count (number/volume) 7.5 10*3/uL 4.3-11.0 Blood erythrocytes automated count (number/volume) 4.30 10*6/uL 4.35-5.85 Venous blood hemoglobin measurement (mass/volume) 13.4 g/dL 13.3-17.7 Blood hematocrit (volume fraction) 39 % 40-54 Automated erythrocyte mean corpuscular volume 91 [foz_us] 80-99 Automated erythrocyte mean corpuscular hemoglobin (mass per erythrocyte) 31 pg 25-34 Automated erythrocyte mean corpuscular hemoglobin concentration measurement ( mass/volume) 34 g/dL 32-36 Automated erythrocyte distribution width ratio 13.6 % 10.0-14.5 Automated blood platelet count (count/volume) 238 10*3/uL 130-400 Automated blood platelet mean volume measurement 11.1 [foz_us] 7.4-10.4 Automated blood neutrophils/100 leukocytes 61 % 42-75 Automated blood lymphocytes/100 leukocytes 29 % 12-44 Blood monocytes/100 leukocytes 7 % 0-12 Automated blood eosinophils/100 leukocytes 3 % 0-10 Automated blood basophils/100 leukocytes 0 % 0-10 Blood neutrophils automated count (number/volume) 4.6 10*3 1.8-7.8 Blood lymphocytes automated count (number/volume) 2.2 10*3 1.0-4.0 Blood monocytes automated count (number/volume) 0.5 10*3 0.0-1.0 Automated eosinophil count 0.2 10*3/uL 0.0-0.3 Automated blood basophil count (count/volume) 0.0 10*3/uL 0.0-0.1 Comprehensive metabolic panel - 08/28/18 19:58 Serum or plasma sodium measurement (moles/volume) 138 mmol/L 135-145 Serum or plasma potassium measurement (moles/volume) 3.2 mmol/L 3.6-5.0 Serum or plasma chloride measurement (moles/volume) 103 mmol/L 98-107 Carbon dioxide 17 mmol/L 21-32 Serum or plasma anion gap determination (moles/volume) 18 mmol/L 5-14 Serum or plasma urea nitrogen measurement (mass/volume) 9 mg/dL 7-18 Serum or plasma creatinine measurement (mass/volume) 1.06 mg/dL 0.60-1.30 Serum or plasma urea nitrogen/creatinine mass ratio 8 NRG Serum or plasma creatinine measurement with calculation of estimated glomerular filtration rate > NRG Serum or plasma glucose measurement (mass/volume) 103 mg/dL 70-105 Serum or plasma calcium measurement (mass/volume) 8.9 mg/dL 8.5-10.1 Serum or plasma total bilirubin measurement (mass/volume) 0.3 mg/dL 0.1-1.0 Serum or plasma alkaline phosphatase measurement (enzymatic activity/volume) 65 U/L 40-136 Serum or plasma aspartate aminotransferase measurement (enzymatic activity/ volume) 51 U/L 5-34 Serum or plasma alanine aminotransferase measurement (enzymatic activity/volume ) 49 U/L 0-55 Serum or plasma protein measurement (mass/volume) 7.2 g/dL 6.4-8.2 Serum or plasma albumin measurement (mass/volume) 4.2 g/dL 3.2-4.5 CALCIUM CORRECTED 8.7 mg/dL 8.5-10.1 Magnesium - 08/28/18 19:58 Magnesium 2.4 mg/dL 1.8-2.4 Serum or plasma lithium measurement (moles/volume) - 08/28/18 19:58 BNP level 48.1 pg/mL <100.0 Serum or plasma troponin i.cardiac measurement (mass/volume) - 08/28/18 19:58 Serum or plasma troponin i.cardiac measurement (mass/volume) < ng/ mL <0.30 Complete blood count (CBC) with automated white blood cell (WBC) differential - 08/29/18 08:35 Blood leukocytes automated count (number/volume) 7.3 10*3/uL 4.3-11.0 Blood erythrocytes automated count (number/volume) 4.62 10*6/uL 4.35-5.85 Venous blood hemoglobin measurement (mass/volume) 14.3 g/dL 13.3-17.7 Blood hematocrit (volume fraction) 42 % 40-54 Automated erythrocyte mean corpuscular volume 91 [foz_us] 80-99 Automated erythrocyte mean corpuscular hemoglobin (mass per erythrocyte) 31 pg 25-34 Automated erythrocyte mean corpuscular hemoglobin concentration measurement ( mass/volume) 34 g/dL 32-36 Automated erythrocyte distribution width ratio 13.3 % 10.0-14.5 Automated blood platelet count (count/volume) 224 10*3/uL 130-400 Automated blood platelet mean volume measurement 10.5 [foz_us] 7.4-10.4 Automated blood neutrophils/100 leukocytes 88 % 42-75 Automated blood lymphocytes/100 leukocytes 10 % 12-44 Blood monocytes/100 leukocytes 1 % 0-12 Automated blood eosinophils/100 leukocytes 0 % 0-10 Automated blood basophils/100 leukocytes 0 % 0-10 Blood neutrophils automated count (number/volume) 6.4 10*3 1.8-7.8 Blood lymphocytes automated count (number/volume) 0.8 10*3 1.0-4.0 Blood monocytes automated count (number/volume) 0.1 10*3 0.0-1.0 Automated eosinophil count 0.0 10*3/uL 0.0-0.3 Automated blood basophil count (count/volume) 0.0 10*3/uL 0.0-0.1 Blood manual differential performed detection - 08/29/18 08:35 Blood monocytes/100 leukocytes 4 % NRG Manual blood segmented neutrophils/100 leukocytes 86 % NRG Manual blood lymphocytes/100 leukocytes 4 % NRG Manual blood basophils/100 leukocytes 1 % NRG Blood lymphocytes variant/100 leukocytes 5 % NRG Blood erythrocyte morphology finding identification NORMAL NRG Serum or plasma troponin i.cardiac measurement (mass/volume) - 10/21/18 09:55 Serum or plasma troponin i.cardiac measurement (mass/volume) 0.118 ng/mL <0.028 Complete blood count (CBC) with automated white blood cell (WBC) differential - 10/21/18 12:46 Blood leukocytes automated count (number/volume) 6.9 10*3/uL 4.3-11.0 Blood erythrocytes automated count (number/volume) 4.28 10*6/uL 4.35-5.85 Venous blood hemoglobin measurement (mass/volume) 13.3 g/dL 13.3-17.7 Blood hematocrit (volume fraction) 40 % 40-54 Automated erythrocyte mean corpuscular volume 93 [foz_us] 80-99 Automated erythrocyte mean corpuscular hemoglobin (mass per erythrocyte) 31 pg 25-34 Automated erythrocyte mean corpuscular hemoglobin concentration measurement ( mass/volume) 33 g/dL 32-36 Automated erythrocyte distribution width ratio 13.6 % 10.0-14.5 Automated blood platelet count (count/volume) 218 10*3/uL 130-400 Automated blood platelet mean volume measurement 10.2 [foz_us] 7.4-10.4 Automated blood neutrophils/100 leukocytes 64 % 42-75 Automated blood lymphocytes/100 leukocytes 28 % 12-44 Blood monocytes/100 leukocytes 5 % 0-12 Automated blood eosinophils/100 leukocytes 3 % 0-10 Automated blood basophils/100 leukocytes 0 % 0-10 Blood neutrophils automated count (number/volume) 4.4 10*3 1.8-7.8 Blood lymphocytes automated count (number/volume) 1.9 10*3 1.0-4.0 Blood monocytes automated count (number/volume) 0.3 10*3 0.0-1.0 Automated eosinophil count 0.2 10*3/uL 0.0-0.3 Automated blood basophil count (count/volume) 0.0 10*3/uL 0.0-0.1 PT panel in platelet poor plasma by coagulation assay - 10/21/18 12:46 Prothrombin time (PT) in platelet poor plasma by coagulation assay 12.9 s 12.2-14.7 INR in platelet poor plasma or blood by coagulation assay 1.0 0.8-1.4 Activated partial thromboplastin time (aPTT) in platelet poor plasma bycoagulation assay - 10/21/18 12:46 Activated partial thromboplastin time (aPTT) in platelet poor plasma bycoagulation assay 29 s 24-35 Comprehensive metabolic panel - 10/21/18 12:46 Serum or plasma sodium measurement (moles/volume) 138 mmol/L 135-145 Serum or plasma potassium measurement (moles/volume) 3.9 mmol/L 3.6-5.0 Serum or plasma chloride measurement (moles/volume) 102 mmol/L 98-107 Carbon dioxide 24 mmol/L 21-32 Serum or plasma anion gap determination (moles/volume) 12 mmol/L 5-14 Serum or plasma urea nitrogen measurement (mass/volume) 8 mg/dL 7-18 Serum or plasma creatinine measurement (mass/volume) 0.98 mg/dL 0.60-1.30 Serum or plasma urea nitrogen/creatinine mass ratio 8 NRG Serum or plasma creatinine measurement with calculation of estimated glomerular filtration rate > NRG Serum or plasma glucose measurement (mass/volume) 127 mg/dL 70-105 Serum or plasma calcium measurement (mass/volume) 9.2 mg/dL 8.5-10.1 Serum or plasma total bilirubin measurement (mass/volume) 0.4 mg/dL 0.1-1.0 Serum or plasma alkaline phosphatase measurement (enzymatic activity/volume) 67 U/L 40-136 Serum or plasma aspartate aminotransferase measurement (enzymatic activity/ volume) 31 U/L 5-34 Serum or plasma alanine aminotransferase measurement (enzymatic activity/volume ) 32 U/L 0-55 Serum or plasma protein measurement (mass/volume) 7.2 g/dL 6.4-8.2 Serum or plasma albumin measurement (mass/volume) 4.1 g/dL 3.2-4.5 CALCIUM CORRECTED 9.1 mg/dL 8.5-10.1 Magnesium - 10/21/18 12:46 Magnesium 2.4 mg/dL 1.8-2.4 Fibrin D-dimer FEU measurement in platelet poor plasma (mass/volume) - 12:46 Fibrin D-dimer FEU measurement in platelet poor plasma (mass/volume) 0.45 ug/mL 0.00-0.49 Serum or plasma troponin i.cardiac measurement (mass/volume) - 10/21/18 12:46 Serum or plasma troponin i.cardiac measurement (mass/volume) 0.126 ng/mL <0.028 Myoglobin, serum - 10/21/18 12:46 Myoglobin, serum 45.6 ng/mL 10.0-92.0 Lipase - 10/21/18 12:46 Lipase 34 U/L 8-78 Serum or plasma lithium measurement (moles/volume) - 10/21/18 12:46 BNP level 58.2 pg/mL <100.0 Encounters ACCT No. Visit Date/Time Discharge Status Pt. Type Provider Facility Loc./Unit Complaint [id number] 03/18/2014 10:46:00 03/18/2014 23:59:59 CLS Outpatient KEE MAYERS APRN [id number] 11/10/2013 13:57:00 11/10/2013 23:59:59 CLS Outpatient KEE MAYERS APRN [id number] 11/10/2013 13:57:00 11/10/2013 23:59:59 CLS Outpatient KEE MAYERS APRN [id number] 07/20/2013 10:46:00 07/20/2013 23:59:59 CLS Outpatient ANDIE HERNÁNDEZ DO [id number] 04/27/2013 08:29:00 04/27/2013 23:59:59 CLS Outpatient ZAFAR AVALOS MD [id number] 10/22/2012 12:29:00 10/22/2012 23:59:59 CLS Outpatient KEE MAYERS APRN [id number] 06/24/2012 12:56:00 06/24/2012 23:59:59 CLS Outpatient KEE MAYERS APRN [id number] 06/24/2012 12:56:00 06/24/2012 23:59:59 CLS Outpatient KEE MAYERS APRN [id number] 04/17/2013 14:07:00 Document Registration [id number] 06/14/2015 10:54:41 ACT Document Registration [id number] 03/18/2018 13:15:00 03/18/2018 23:59:59 CLS Outpatient KEE MAYERS APRN [facility] [id number] 08/29/2018 08:25:00 08/29/2018 23:59:59 CLS Outpatient DESHAWN DING DO Via [facility] LAB HEMOPTYSIS [id number] 08/28/2018 19:37:00 08/28/2018 23:01:00 DIS Emergency DESHAWN DING DO Via [facility] ER COUGHING UP BLOOD, SOB [id number] 07/10/2018 07:45:00 07/10/2018 23:59:59 CLS Outpatient LAZARO CARREON DO [facility] RAD HAEMOPTYSIS, SMOKING , COPD [id number] 05/26/2018 09:33:00 05/26/2018 23:59:59 CLS Outpatient LAZARO CARREON DO [facility] RAD HEMOPLYSIS [id number] 03/19/2018 12:19:00 03/19/2018 16:37:00 DIS Emergency DESHAWN DING DO [facility] ER ABCESS TOOTH [id number] 12/10/2017 08:14:00 12/11/2017 09:04:00 DIS Outpatient KATHLEEN SWANSON FACC, ALFREDO HERNANDEZ CCDS [facility] CATH LEFT HEART CATH [id number] 01/22/2017 09:10:00 01/23/2017 11:00:00 DIS Outpatient KATHLEEN SWANSON FACC, ALFREDO HERNANDEZ CCDS [facility] CATH CHEST PAIN, CAD,ISCHEMIC CM,CARMEN [id number] 12/25/2016 08:09:00 12/25/2016 23:59:59 CLS Outpatient LAZARO CARREON DO [facility] RAD NECK PAIN RT SIDE [id number] 12/25/2016 08:04:00 12/25/2016 23:59:59 CLS Outpatient KATHLEEN SWANSON FACC, ALFREDO HERNANDEZ CCDS [facility] CARD CAD,HLP [id number] 07/14/2016 14:02:00 07/14/2016 16:16:00 DIS Emergency ALLYN BIRD [facility] ER R LEG NUMBNESS [id number] 06/13/2016 12:05:00 06/13/2016 23:59:59 CLS Outpatient LAZARO CARREON DO [facility] RAD SCIATICA GETTING WORSE LT LEG [id number] 05/03/2016 10:04:00 05/03/2016 23:59:59 CLS Outpatient LAZARO CARREON DO [facility] RAD SCIATICA,NUMBNESS LEFT THIGH TINGLING [id number] 05/01/2016 07:12:00 05/02/2016 09:35:00 DIS Outpatient KATHLEEN SWANSON FACC, ALFREDO HERNANDEZ CCDS [facility] CATH CHEST PAIN, CAD [id number] 03/22/2016 07:55:00 03/22/2016 23:59:59 CLS Outpatient JOS DIAS [facility] CARD CHEST PAIN, CAD [place] , COPD, CARDIOMYOPATHY [id number] 07/26/2015 12:22:00 07/26/2015 19:08:00 DIS Outpatient KATHLEEN SWANSON FACC, ALFREDO HERNANDEZ CCDS [facility] CATH ICD RODRIGUEZ, MYOPATHY [id number] 06/14/2015 00:32:00 06/14/2015 01:44:00 DIS Emergency BRIGIDA SWANSON, COLETTE Li [facility] ER DENTAL PAIN [id number] 11/23/2014 19:00:00 11/26/2014 11:30:00 DIS Outpatient VELMA SANCHEZ LAZARO Wesley [facility] CATH CHEST PAIN; HTN; COPD [id number] 06/18/2014 09:27:00 06/18/2014 23:59:59 CLS Outpatient JOS DIAS [facility] CARD CAD,HLP,HX PACEMAKER [id number] 01/13/2014 10:08:00 01/13/2014 12:37:00 DIS Emergency TIMO SEYMOUR MD [facility] ER FALL/LEFT ANKLE INJURY [id number] 12/31/2013 07:40:00 12/31/2013 23:59:59 CLS Outpatient KATHLEEN SWANSON FACC, ALFREDO HERNANDEZ CCDS [facility] CARD HLP,CAD, [id number] 11/13/2013 07:37:00 11/13/2013 23:59:59 CLS Outpatient [id number] 06/26/2013 07:46:00 06/26/2013 23:59:59 CLS Outpatient [id number] 06/09/2013 20:44:00 06/10/2013 06:15:00 DIS Outpatient [id number] 2013 08:40:00 2013 10:07:00 DIS Emergency [id number] 04/22/2013 07:47:00 04/22/2013 23:59:59 CLS Outpatient [id number] 10/21/2018 14:41:00 ACT Inpatient LAZARO CARREON DO [facility] 4TH CHEST PAIN [id number] 10/21/2018 09:47:00 ACT Outpatient LAZARO CARREON DO [facility] LAB CHEST PAIN
[2018-10-21] MEDS ORDERED: NITROGLYCERIN 0.4 MG SL TABS BTL 25'S SL PRN (15:30)
[2018-10-21] MEDS ORDERED: CATHETER FLUSH 10 ML SYR IV PRN (15:30)
[2018-10-21] MEDS ORDERED: morphine INJ 4 MG/ML 1 ML (VIAL/SYRINGE) IV PRN (15:30)
[2018-10-21 16:20] VITALS: BP 157/88
[2018-10-21] MEDS ORDERED: FLUT16SP22 NS (17:35)
[2018-10-21] MEDS ORDERED: ALBU18HF2 INH (17:35)
[2018-10-21] MEDS ORDERED: CLOP75TA28 PO (17:35)
--- NOTE | 2018-10-21 17:36 | NUR ---
WENT OVER THE EXT MED HX WITH THE PATIENT AND HE VERIFIED HOW HE TAKES EACH MEDICATION. HE TAKES ASPIRIN 81MG DAILY OTC.
--- NOTE | 2018-10-21 18:46 | Consultation-Cardiology ---
HPI-Cardiology Cardiology Consultation: Date of Consultation 10/21/18 Time Seen by a Provider: 14:50 Date of Admission Attending Physician Joaquin Ryan DO Admitting Physician Joaquin Ryan DO Consulting Physician ALFREDO WANG MD, MA, FACP, FACC, FSCAI, CCDS HPI: Chief Complaint: CC: Chest pain HPI: Mr. Warren is a 58 year old male being admitted to [facility]note 3] from the ED. We have seen him in the ED. He reports he has been having constant left sided chest pain, sharp, stabbing, localized pain. It is worse with coughing or deep breathing for approx the last week. He states he has had a frequent productive cough for the last week as well. He reports the discomfort today became constant pressure with sharp stabbing pains that were more frequent. He denies any fever or chills. He reports he went to see his PCP this morning and was directed to [facility] for blood work. He reports he then went home. He received a phone call at home telling him to report to the ED. He denies any n/v. He does report some diarrhea. He denies any palpitations. He has chronic mod exertional dyspnea which has been progressively worse. He denies any LE swelling. Ne states he has been compliant with his medications. He reports he has not been compliant with his CPAP tx. He reports approx 2-3 months ago we was not taking Plavix for approx 2-3 weeks d/t hemoptysis, but he is back on it. Review of Systems-Cardiology Review of Systems Constitutional: No chills, No fever Eyes: No vision change Ears/Nose/Throat: No epistaxis, No recent hearing loss Respiratory: As described under HPI Cardiovascular: As described under HPI Gastrointestinal: No constipation; diarrhea; No nausea, No vomiting Genitourinary: No dysuria, No hematuria Musculoskeletal: joint pain Skin: No rash, No ulcerations Psychiatric/Neurological: No seizure, No focal weakness, No syncope Hematologic: No bleeding abnormalities All Other Systems Reviewed Negative Unless Noted: Yes IBR-Cgansf-Eiuzqa Hx Patient Social History Alcohol Use: Occasionally Uses Recreational Drug Use: No Drug of Choice: "ALL KINDS" WHEN IN 20'S Smoking Status: Current Everyday Smoker Type Used: Cigars, Cigarettes Recent Foreign Travel: No Recent Infectious Disease Expo: No Physical Abuse Screen: No Sexual Abuse: No Immunizations Up To Date Tetanus Booster (TDap): Less than 5yrs Date of Pneumonia Vaccine: May 10, 2017 Date of Influenza Vaccine: Jul 10, 2018 Past Medical History PMH As described under Assessment. Family Medical History Family History: Cardiovascular disease 19 MOTHER PATERNAL GRANDMOTHER Completed stroke PATERNAL GRANDFATHER Diabetes mellitus 19 MOTHER Hypertension 19 MOTHER PATERNAL GRANDMOTHER Neoplasm 19 FATHER (LUNG CANCER - AGE 42) MATERNAL GRANDMOTHER (BREAST CANCER) Allergies and Home Medications Allergies Coded Allergies: Penicillins (Verified Allergy, Unknown, 01/14/06) ketorolac (Unverified Adverse Reaction, Unknown, 03/30/10) Home Medications Albuterol Sulfate 18 Gm Hfa.aer.ad, 2 PUFF INH Q4H PRN for SHORTNESS OF BREATH, (Reported) Aspirin 81 Mg Tab.chew, 81 MG PO DAILY, (Reported) Atorvastatin Calcium 20 Mg Tablet, 20 MG PO DAILY, (Reported) Baclofen 10 Mg Tablet, 10 MG PO TID PRN for MUSCLE SPASMS, (Reported) Clopidogrel Bisulfate 75 Mg Tablet, 75 MG PO DAILY, (Reported) Fluticasone Propionate 16 Gm [place].susp, 2 SPRAYS NS DAILY, (Reported) Fluticasone/Salmeterol 1 Each Blst.w.dev, 1 PUFF IH BID, (Reported) Furosemide 40 Mg Tablet, 40 MG PO DAILY PRN for SWELLING, (Reported) Gabapentin 600 Mg Tablet, 600 MG PO TID, (Reported) Nitroglycerin 0.4 Mg Tab.subl, 0.4 MG SL UD PRN for CHEST PAIN, (Reported) 1 TABLET EVERY 5 MINUTES X 3 DOSES Potassium Chloride 10 Meq Tab.er.prt, 10 MEQ PO DAILY PRN for WHEN TAKING FUROSEMIDE, (Reported) Tiotropium [place] 4 Gm Mist.inhal, 2 PUFF IH DAILY, (Reported) Tramadol HCl 50 Mg Tablet, 50 MG PO TID PRN for PAIN-MILD, (Reported) Patient Home Medication List Home Medication List Reviewed: Yes Physical Exam-Cardiology Physical Exam Vital Signs/I&O 10/21/18 10/21/18 10/21/18 10/21/18 12:25 12:25 15:10 15:15 Temp 97.9 Pulse 87 99 Resp 16 20 B/P (MAP) 152/83 (106) 152/69 (96) Pulse Ox 99 98 O2 Delivery Room Air Room Air 10/21/18 10/21/18 16:20 17:00 Temp 98.0 Pulse 81 64 Resp 28 B/P (MAP) 157/88 (111) Pulse Ox 97 O2 Delivery Room Air Capillary Refill : Less Than 3 Seconds Constitutional: AAO x 3, well-developed, well-nourished HEENT: PERRL, hearing is well preserved, oral hygience is good Neck: No carotid bruit; carotid pulses are 2 + bilaterally Respiratory: No accessory muscle use, No respiratory distress; chest expansion is symmetric, chest is bilaterally symmetric, rhonchi (scattered), other ( prolonged expiratory phase) Cardiovascular: regular rate-rhythm; No JVD; S1 and S2 Gastrointestinal: No tender; soft, round, audible bowel sounds Rectal: deferred Extremities: no lower extremity edema bilateral Neurologic/Psychiatric: grossly intact, power is 5/5 both on sides Skin: No rash, No ulcerations Data Review Labs Laboratory Tests 10/21/18 12:46: White Blood Count 6.9, Red Blood Count 4.28L, Hemoglobin 13.3, Hematocrit 40, Mean Corpuscular Volume 93, Mean Corpuscular Hemoglobin 31, Mean Corpuscular Hemoglobin Concent 33, Red Cell Distribution Width 13.6, Platelet Count 218, Mean Platelet Volume 10.2, Neutrophils (%) (Auto) 64, Lymphocytes (%) (Auto) 28 , Monocytes (%) (Auto) 5, Eosinophils (%) (Auto) 3, Basophils (%) (Auto) 0, Neutrophils # (Auto) 4.4, Lymphocytes # (Auto) 1.9, Monocytes # (Auto) 0.3, Eosinophils # (Auto) 0.2, Basophils # (Auto) 0.0, Prothrombin Time 12.9, INR Comment 1.0, Activated Partial Thromboplast Time 29, D-Dimer 0.45, Sodium Level 138, Potassium Level 3.9, Chloride Level 102, Carbon Dioxide Level 24, Anion Gap 12, Blood Urea Nitrogen 8, Creatinine 0.98, Estimat Glomerular Filtration Rate > 60, BUN/Creatinine Ratio 8, Glucose Level 127H, Calcium Level 9.2, Corrected Calcium 9.1, Magnesium Level 2.4, Total Bilirubin 0.4, Aspartate Amino Transf (AST/SGOT) 31, Alanine Aminotransferase (ALT/SGPT) 32, Alkaline Phosphatase 67, Myoglobin 45.6, Troponin I 0.126, B-Type Natriuretic Peptide 58.2, Total Protein 7.2, Albumin 4.1, Lipase 34 A/P-Cardiology Assessment/Admission Diagnosis Chest pain of undetermined etiology Acute on chronic exacerbation of COPD CAD. Cardiac cath of December 10, 2017: Coronary artery disease is consisting of 80 % proximal stenosis of the left anterior descending artery and mid vessel occlusion of the left anterior descending artery. The distal left anterior descending artery is protected by a patent left internal mammary artery graft to the distal left anterior descending artery. A ramus intermedius artery is known to have overlapping stents (Promus 2.5 x 38 and 2.5 x 12) that were exhibiting up to 90% stenosis. The ostial ramus intermedius had 95% stenosis. The left circumflex artery is known to have a 4.0 x 24 mm stent, which was exhibiting 70% stenosis. To these stenoses in the ramus intermedius and in the left circumflex, kissing balloon angioplasty was carried out, which reduced the stenosis to approximately 30%. The distal ramus intermedius artery has 70% stenosis where the vessel is of a small caliber and not amenable to intervention. The right coronary artery is a small, nondominant and has diffuse moderately severe disease. Moderately elevated left ventricular end- diastolic pressure. Anterolateral and apical hypokinesis. Mild impairment of global left ventricular systolic function with ejection fraction 45% to 50%. ICM Abnormal ECG: ECG of 12/10/16 showed NSR with repol abn in anterolat leads, essentially unchanged on 12/04/17 On echo of 06/18/14 LVEF was 30-35%, distal septal and anteroapical hypo/ akinesis and PASP 25 mmHg Status post defibrillator placement [place] [address] Reynaga at [facility]. Device was replaced on 07/26/15 after it had reached RODRIGUEZ. It is fucntioning normally on interrogation of Aug 2018 Reactive airway disease. Chronic tobaccoism - cessation advised Diastolic dysfunction of the left ventricle. Chronic joint and back discomfort. Sleep apnea for which he's on CPAP therapy. History of mild intermittent liver enzyme elevation, likely related to alcohol use, no elevation on lab work of Jun 2014. This is followed by Dr Ryan Noncompliance with medications. Hyperlipidemia - PCP managing Mild carotid arterial disease on carotid u/s of 09/07/16 Discussion and Recomendations Non-specific chest pain Continue current medication regimen including ASA, Plavix, statin, ARB Monitor lab Management of COPD per medical services Echocardiogram to eval structure and LVEF Further recs will be based on his hospital course We would like to thank medical services for this consult Clinical Quality Measures AMI/AHF: ASA po Prior to arrival: No DVT/VTE Risk/Contraindication: Risk Factor Score Per Nursin RFS Level Per Nursing on Admit: 3=High ALFREDO WANG MD FACP FAC CCDS Oct 21, 2018 18:46
--- NOTE | 2018-10-21 20:30 | NUR ---
AT SHIFT EXAM, PATIENT STATED HAVING CHEST PAIN 7.5/10. EKG ORDERED. CONTACTED DR QUIROZ MICROFILMER CASTING TESTER WITH RESULTS OF EKG. GAVE PATIENT ONE DOSE OF NITRO 0.4 SL PER CHEST PAIN PROTOCOL. AT 5 MINUTES PATIENT REPORTS CHEST PAIN RELIEVED, BUT NOW HAS HEADACHE, PATIENT STATES WILL WAIT OUT HEAD ACHE. NO FURTHER ORDERS AT THIS TIME.
[2018-10-21] MEDS ORDERED: NITROGLYCERIN 0.4 MG/PATCH (NITRO-DUR) TD ONE (20:45)
[2018-10-21 20:51] VITALS: BP 155/77
--- NOTE | 2018-10-21 21:00 | NUR ---
PATIENT REASSESSED FOR CHEST PAIN, DENIES. REFUSED NITRO PATCH AT THIS TIME.
[2018-10-21 21:54] VITALS: BP 155/77
[2018-10-21] MEDS ORDERED: RT-ALBUTEROL/IPRATROPIUM 3 ML (DUONEB) VIAL INH PRN (22:15)
[2018-10-21] MEDS: CATHETER FLUSH 10 ML SYR IV SCH (23:03)
[2018-10-21 23:31] VITALS: BP 160/79
[2018-10-22] MEDS: RT-ALBUTEROL/IPRATROPIUM 3 ML (DUONEB) VIAL INH SCH ×3 (02:29→20:09)
[2018-10-22 04:00] VITALS: BP 118/64
[2018-10-22 05:46] LABS: BASOPHILS % (AUTO) 0 % (0-10); EOSINOPHILS # (AUTO) 0.3 10^3/uL (0.0-0.3); EOSINOPHILS % (AUTO) 4 % (0-10); HEMATOCRIT 37 % (40-54); HEMOGLOBIN 12.2 G/DL (13.3-17.7); LYMPHOCYTES % (AUTO) 30 % (12-44); MEAN CORPUSCULAR HEMOGLOBIN 31 PG (25-34); MEAN CORPUSCULAR HGB CONC 33 G/DL (32-36); MEAN CORPUSCULAR VOLUME 94 FL (80-99); MEAN PLATELET VOLUME 10.4 FL (7.4-10.4); MONOCYTES # (AUTO) 0.6 X 10^3 (0.0-1.0); MONOCYTES % (AUTO) 9 % (0-12); NEUTROPHILS # (AUTO) 3.8 X 10^3 (1.8-7.8); NEUTROPHILS % (AUTO) 57 % (42-75); PLATELET COUNT 218 10^3/uL (130-400); RED CELL DISTRIBUTION WIDTH 13.9 % (10.0-14.5); WHITE BLOOD COUNT 6.7 10^3/uL (4.3-11.0)
[2018-10-22 06:11] LABS: ALANINE AMINOTRANSFERASE 26 U/L (0-55); ALBUMIN 3.5 GM/DL (3.2-4.5); ALKALINE PHOSPHATASE 62 U/L (40-136); BILIRUBIN,TOTAL 0.3 MG/DL (0.1-1.0); BUN/CREATININE RATIO 13; CALCIUM 8.5 MG/DL (8.5-10.1); CARBON DIOXIDE 22 MMOL/L (21-32); CHLORIDE 104 MMOL/L (98-107); CHOLESTEROL 245 MG/DL (< 200); CREATININE SERUM 0.82 MG/DL (0.60-1.30); GFR ESTIMATED > 60; GLUCOSE 114 MG/DL (70-105); HDL CHOLESTEROL 31 MG/DL (40-60); POTASSIUM 4.2 MMOL/L (3.6-5.0); SODIUM 136 MMOL/L (135-145); TOTAL PROTEIN 6.1 GM/DL (6.4-8.2); TRIGLYCERIDES 218 MG/DL (<150); VLDL CHOLESTEROL 44 MG/DL (5-40)
[2018-10-22] MEDS: CATHETER FLUSH 10 ML SYR IV SCH ×4 (06:40→21:15)
[2018-10-22 08:00] VITALS: BP 147/71
--- NOTE | 2018-10-22 08:32 | History & Physicial ---
History of Present Illness History of Present Illness Reason for visit/HPI Patient seen in the office yesterday. Patient had intermittent chest pain. Patient did not want left the emergency room. Troponin 1 ordered slightly elevated. Patient sent out to the emergency room area Patient has history of open heart surgery and stents and pacemaker. Other surgeries tonsillectomy an anterior cruciate ligament of left knee. Patient smokes a half a pack a day told again to stop smoking Date of Admission Oct 21, 2018 at 14:41 Time Seen by a Provider: 08:27 I consulted on this patient on 10/22/18 08:27 Attending Physician Joaquin Carreon DO Admitting Physician Joaquin Carreon DO Consult Allergies and Home Medications Allergies Coded Allergies: Penicillins (Verified Allergy, Unknown, 01/14/06) ketorolac (Unverified Adverse Reaction, Unknown, 03/30/10) Home Medications Albuterol Sulfate 18 Gm Hfa.aer.ad, 2 PUFF INH Q4H PRN for SHORTNESS OF BREATH, (Reported) Aspirin 81 Mg Tab.chew, 81 MG PO DAILY, (Reported) Atorvastatin Calcium 20 Mg Tablet, 20 MG PO DAILY, (Reported) Baclofen 10 Mg Tablet, 10 MG PO TID PRN for MUSCLE SPASMS, (Reported) Clopidogrel Bisulfate 75 Mg Tablet, 75 MG PO DAILY, (Reported) Fluticasone Propionate 16 Gm [place].susp, 2 SPRAYS NS DAILY, (Reported) Fluticasone/Salmeterol 1 Each Blst.w.dev, 1 PUFF IH BID, (Reported) Furosemide 40 Mg Tablet, 40 MG PO DAILY PRN for SWELLING, (Reported) Gabapentin 600 Mg Tablet, 600 MG PO TID, (Reported) Nitroglycerin 0.4 Mg Tab.subl, 0.4 MG SL UD PRN for CHEST PAIN, (Reported) 1 TABLET EVERY 5 MINUTES X 3 DOSES Potassium Chloride 10 Meq Tab.er.prt, 10 MEQ PO DAILY PRN for WHEN TAKING FUROSEMIDE, (Reported) Tiotropium [place] 4 Gm Mist.inhal, 2 PUFF IH DAILY, (Reported) Tramadol HCl 50 Mg Tablet, 50 MG PO TID PRN for PAIN-MILD, (Reported) Patient Home Medication List Home Medication List Reviewed: Yes Past Hqtuaqx-Chcndb-Bymwqi Hx Patient Social History Marrital Status: Employed/Student: unemployed Alcohol Use: Occasionally Uses Number of Drinks Today: GG Alcohol Beverage of Choice: Beer Recreational Drug Use: No Drug of Choice: "ALL KINDS" WHEN IN 20'S Smoking Status: Current Everyday Smoker Type Used: Cigars, Cigarettes Physical Abuse Screen: No Sexual Abuse: No Recent Foreign Travel: No Contact w/other who traveled: No Recent Hopitalizations: No Recent Infectious Disease Expo: No Immunizations Up To Date Tetanus Booster (TDap): Less than 5yrs Date of Pneumonia Vaccine: May 10, 2017 Date of Influenza Vaccine: Jul 10, 2018 Seasonal Allergies Seasonal Allergies: No Surgeries Yes Adenoidectomy, Cardiac, CABG, Coronary Stent, Defibrillator, Open Heart Surgery , Orthopedic, Pacemaker, Tonsillectomy Respiratory Yes (CONTINUES TO SMOKE) Asthma, COPD Currently Using CPAP: Yes (WEARS OCCASIONALLY) Currently Using BIPAP: No Cardiovascular Yes Cardiomyopathy, Coronary Artery Disease, Heart Attack, High Cholesterol, Hypertension Neurological Yes ("Minor stroke") Stroke Reproductive System Hx Reproductive Disorders: No Genitourinary No Gastrointestinal No Musculoskeletal Yes (CHRONIC KNEE PAIN) Degenerate Disk Disease, Arthritis, Chronic Back Pain Endocrine History of Endocrine Disorders: No HEENT History of HEENT Disorders: Yes (WISDOM TEETH REMOVED; DENTAL ABSCESSES) Cancer No Psychosocial History of Psychiatric Problem: No Integumentary History of Skin or Integumenta: No Blood Transfusions History of Blood Disorders: No Family Medical History Significant Family History: No Pertinent Family Hx Family Hx: Cardiovascular disease 19 MOTHER PATERNAL GRANDMOTHER Completed stroke PATERNAL GRANDFATHER Diabetes mellitus 19 MOTHER Hypertension 19 MOTHER PATERNAL GRANDMOTHER Neoplasm 19 FATHER (LUNG CANCER - AGE 42) MATERNAL GRANDMOTHER (BREAST CANCER) Review of Systems Constitutional: no symptoms reported, chills EENTM: no symptoms reported Respiratory: short of breath Cardiovascular: chest pain Gastrointestinal: no symptoms reported Genitourinary: no symptoms reported Physical Exam Vital Signs Vital Signs - First Documented 10/21/18 12:25 Temp 97.9 Pulse 87 Resp 16 B/P (MAP) 152/83 (106) Pulse Ox 99 O2 Delivery Room Air Capillary Refill : Less Than 3 Seconds Height, Weight, BMI Height: 5'8.00" Weight: 273lbs. 7.0oz. 124.100039am; 41.6 BMI Method:Stated General Appearance: No Apparent Distress, WD/WN Eyes: Bilateral Eye Normal Inspection HEENT: Normal ENT Inspection Neck: Full Range of Motion, Normal Inspection Respiratory: Lungs Clear, No Accessory Muscle Use, No Respiratory Distress, Decreased Breath Sounds Cardiovascular: Regular Rate, Rhythm, No Murmur Gastrointestinal: Non Tender, Soft Assessment/Plan Assessment and Plan Chest pain. Minimally elevated troponin 1. COPD. Tobaccoism. Coronary artery disease Admission Diagnosis Admission Status: Observation Clinical Quality Measures AMI/AHF: ASA po Prior to arrival: No DVT/VTE Risk/Contraindication: Risk Factor Score Per Nursin RFS Level Per Nursing on Admit: 3=High JOAQUIN CARREON DO Oct 22, 2018 08:32
[2018-10-22] MEDS ORDERED: NITROGLYCERIN 0.4 MG SL TABS BTL 25'S SL PRN (08:45)
[2018-10-22] MEDS ORDERED: FUROSEMIDE 40 MG (LASIX) TAB PO PRN (08:45)
[2018-10-22] MEDS ORDERED: meTOproloL SUCCINATE 50 MG (TOPROL XL) TAB PO SCH (09:00)
[2018-10-22] MEDS ORDERED: CLOPIDOGREL 75 MG (PLAVIX) TABLET PO SCH (09:00)
[2018-10-22] MEDS ORDERED: VALSARTAN 80 MG (DIOVAN) TAB PO SCH (09:00)
[2018-10-22] MEDS ORDERED: ASPIRIN E.C. 81 MG (ECOTRIN) TAB PO SCH (09:00)
--- NOTE | 2018-10-22 09:20 | Progress Note-Cardiology ---
Cardiology SOAP Progress Note Subjective: Does not report cp today Chronic shortness of breath, worse lately No palp or syncope Objective: I&O/Vital Signs 10/21/18 10/21/18 10/22/18 10/22/18 21:54 23:31 01:00 02:29 Temp 96.9 Pulse 62 67 62 Resp 24 B/P (MAP) 160/79 (106) Pulse Ox 96 96 98 O2 Delivery Room Air Room Air 10/22/18 10/22/18 10/22/18 10/22/18 04:00 07:00 08:00 08:13 Temp 96.4 97.2 Pulse 64 59 77 Resp 16 20 B/P (MAP) 118/64 (82) 147/71 (96) Pulse Ox 95 96 93 O2 Delivery Room Air Room Air Room Air 10/22/18 00:00 Intake Total 740 ml Output Total 375 ml Balance 365 ml Weight (Pounds): 273 Weight (Ounces): 7.0 Weight (Calculated Kilograms): 124.578672 Constitutional: AAO x 3, well-developed, well-nourished Respiratory: No accessory muscle use, No respiratory distress; chest expansion is symmetric, chest is bilaterally symmetric, rhonchi (scattered), other ( prolonged expiratory phase) Cardiovascular: regular rate-rhythm; No JVD; S1 and S2, systolic murmur (soft SAM at card bvase) Gastrointestional: No tender; soft, round, audible bowel sounds Extremities: No clubbing, No cyanosis; no lower extremity edema bilateral Neurologic/Psychiatric: grossly intact, power is 5/5 both on sides Skin: No rash on exposed areas, No ulcerations on exposed areas Results/Procedures: Labs Laboratory Tests 10/21/18 12:46: White Blood Count 6.9, Red Blood Count 4.28L, Hemoglobin 13.3, Hematocrit 40, Mean Corpuscular Volume 93, Mean Corpuscular Hemoglobin 31, Mean Corpuscular Hemoglobin Concent 33, Red Cell Distribution Width 13.6, Platelet Count 218, Mean Platelet Volume 10.2, Neutrophils (%) (Auto) 64, Lymphocytes (%) (Auto) 28 , Monocytes (%) (Auto) 5, Eosinophils (%) (Auto) 3, Basophils (%) (Auto) 0, Neutrophils # (Auto) 4.4, Lymphocytes # (Auto) 1.9, Monocytes # (Auto) 0.3, Eosinophils # (Auto) 0.2, Basophils # (Auto) 0.0, Prothrombin Time 12.9, INR Comment 1.0, Activated Partial Thromboplast Time 29, D-Dimer 0.45, Sodium Level 138, Potassium Level 3.9, Chloride Level 102, Carbon Dioxide Level 24, Anion Gap 12, Blood Urea Nitrogen 8, Creatinine 0.98, Estimat Glomerular Filtration Rate > 60, BUN/Creatinine Ratio 8, Glucose Level 127H, Calcium Level 9.2, Corrected Calcium 9.1, Magnesium Level 2.4, Total Bilirubin 0.4, Aspartate Amino Transf (AST/SGOT) 31, Alanine Aminotransferase (ALT/SGPT) 32, Alkaline Phosphatase 67, Myoglobin 45.6, Troponin I 0.126, B-Type Natriuretic Peptide 58.2, Total Protein 7.2, Albumin 4.1, Lipase 34 10/22/18 05:25: White Blood Count 6.7, Red Blood Count 3.98L, Hemoglobin 12.2L, Hematocrit 37L, Mean Corpuscular Volume 94, Mean Corpuscular Hemoglobin 31, Mean Corpuscular Hemoglobin Concent 33, Red Cell Distribution Width 13.9, Platelet Count 218, Mean Platelet Volume 10.4, Neutrophils (%) (Auto) 57, Lymphocytes (%) (Auto) 30 , Monocytes (%) (Auto) 9, Eosinophils (%) (Auto) 4, Basophils (%) (Auto) 0, Neutrophils # (Auto) 3.8, Lymphocytes # (Auto) 2.0, Monocytes # (Auto) 0.6, Eosinophils # (Auto) 0.3, Basophils # (Auto) 0.0, Sodium Level 136, Potassium Level 4.2, Chloride Level 104, Carbon Dioxide Level 22, Anion Gap 10, Blood Urea Nitrogen 11, Creatinine 0.82, Estimat Glomerular Filtration Rate > 60, BUN/ Creatinine Ratio 13, Glucose Level 114H, Calcium Level 8.5, Corrected Calcium 8.9, Total Bilirubin 0.3, Aspartate Amino Transf (AST/SGOT) 29, Alanine Aminotransferase (ALT/SGPT) 26, Alkaline Phosphatase 62, Troponin I 0.091, Total Protein 6.1L, Albumin 3.5, Triglycerides Level 218H, Cholesterol Level 245H, LDL Cholesterol Direct 180H, VLDL Cholesterol 44H, HDL Cholesterol 31L Laboratory Tests 10/21/18 12:46 10/22/18 05:25 A/P: Assessment: Chest discomfort, likely musculoskeletal. No distinct evidence of ac VT Minimum troponin elevation, likely due to CHF and intermittent hypoxemia due to COPD Ac on chronic systolic CHF Ischemic cardiomyopathy. Echo of 10/21/18: LVEF 25-30%, anteroseptal and apical akinesis, biatrial enlargement, PASP 25 mmHg Acute on chronic exacerbation of COPD CAD. Cardiac cath of December 10, 2017: Coronary artery disease is consisting of 80 % proximal stenosis of the left anterior descending artery and mid vessel occlusion of the left anterior descending artery. The distal left anterior descending artery is protected by a patent left internal mammary artery graft to the distal left anterior descending artery. A ramus intermedius artery is known to have overlapping stents (Promus 2.5 x 38 and 2.5 x 12) that were exhibiting up to 90% stenosis. The ostial ramus intermedius had 95% stenosis. The left circumflex artery is known to have a 4.0 x 24 mm stent, which was exhibiting 70% stenosis. To these stenoses in the ramus intermedius and in the left circumflex, kissing balloon angioplasty was carried out, which reduced the stenosis to approximately 30%. The distal ramus intermedius artery has 70% stenosis where the vessel is of a small caliber and not amenable to intervention. The right coronary artery is a small, nondominant and has diffuse moderately severe disease. Moderately elevated left ventricular end- diastolic pressure. Anterolateral and apical hypokinesis. Mild impairment of global left ventricular systolic function with ejection fraction 45% to 50%. Abnormal ECG: ECG of 12/10/16 showed NSR with repol abn in anterolat leads, essentially unchanged on 12/04/17 Status post defibrillator [place] [address] Reynaga at [facility]. Device was replaced on 07/26/15 after it had reached RODRIGUEZ. It is fucntioning normally on interrogation of Aug 2018 Reactive airway disease. Chronic tobaccoism - cessation advised Chronic joint and back discomfort. Sleep apnea for which he's on CPAP therapy. History of mild intermittent liver enzyme elevation, likely related to alcohol use, followed by Dr Ryan H/o noncompliance with medications. Hyperlipidemia - PCP managing Mild carotid arterial disease on carotid u/s of 09/07/16 Plan: * Multiple issues reviewed and discussed * We have recommended optimal medical therapy of ischemic cm and systolic CHF. This has been initiated in the past, but he seems to be noncompliant again * We recommend treatment with BB, ARB, diuretics * We discussed the rationale for above-mentioned treatment * We recommend close monitoring of labs * We have advised immediate and complete smoking cessation * He does not appear ready to be discharged yet Clinical Quality Measures AMI/AHF: ASA po Prior to arrival: ALFREDO Oneill MD FACP FAC CCDS Oct 22, 2018 09:20
[2018-10-22] MEDS: GABAPENTIN 600 MG (NEURONTIN) TAB PO SCH ×3 (11:00→21:15)
[2018-10-22] MEDS: ATORVASTATIN 20 MG (LIPITOR) TABLET PO SCH (11:00)
[2018-10-22] MEDS: ALPRAZolam 0.25 MG (XANAX) TAB PO PRN ×2 (11:01→21:15)
[2018-10-22] MEDS: ASPIRIN 81 MG CHEW (CHILDREN'S ASA) PO SCH (11:01)
[2018-10-22] MEDS: CLOPIDOGREL 75 MG (PLAVIX) TABLET PO SCH (11:01)
[2018-10-22] MEDS: FUROSEMIDE 40 MG/4 ML INJ (LASIX) IVP SCH (11:01)
[2018-10-22 12:00] VITALS: BP 118/51
[2018-10-22 16:44] VITALS: BP 126/59
[2018-10-22 18:00] VITALS: BP 109/73
[2018-10-22 20:00] VITALS: BP 109/73
[2018-10-23] VITALS: BP 129/62
[2018-10-23] MEDS: RT-ALBUTEROL/IPRATROPIUM 3 ML (DUONEB) VIAL INH SCH ×2 (02:51→09:38)
[2018-10-23 04:32] VITALS: BP 111/56
[2018-10-23] MEDS: CATHETER FLUSH 10 ML SYR IV SCH (05:06)
[2018-10-23] MEDS: ALPRAZolam 0.25 MG (XANAX) TAB PO PRN (07:41)
[2018-10-23] MEDS: CLOPIDOGREL 75 MG (PLAVIX) TABLET PO SCH (07:42)
[2018-10-23] MEDS: FUROSEMIDE 40 MG/4 ML INJ (LASIX) IVP SCH (07:43)
[2018-10-23] MEDS: ASPIRIN 81 MG CHEW (CHILDREN'S ASA) PO SCH (07:43)
[2018-10-23] MEDS: ATORVASTATIN 20 MG (LIPITOR) TABLET PO SCH (07:43)
[2018-10-23] MEDS: GABAPENTIN 600 MG (NEURONTIN) TAB PO SCH (07:48)
[2018-10-23 07:49] VITALS: BP 119/56
--- NOTE | 2018-10-23 08:09 | Progress Note (SOAP) ---
Subjective Time Seen by a Provider: 08:04 Subjective/Events-last exam atient feeling better today. No chest pain or shortness of breath. patient to Excess Yesterday and It Helped His Anxiety Much Objective Exam Vital Signs Date Time Temp Pulse Resp B/P (MAP) Pulse Ox O2 Delivery O2 Flow Rate FiO2 10/23/18 07:49 97.2 66 20 119/56 (77) 95 Room Air 10/23/18 04:32 97.6 61 20 111/56 (74) 93 Room Air 10/23/18 02:51 90 Room Air 10/23/18 01:00 64 10/23/18 00:00 98.2 69 20 129/62 (84) 95 Room Air 10/22/18 20:09 94 Room Air 10/22/18 20:00 98.6 59 21 109/73 (85) 97 Room Air 10/22/18 20:00 Room Air 10/22/18 19:00 74 10/22/18 18:00 98.6 59 21 109/73 (85) 97 Room Air 10/22/18 16:44 98.4 77 20 126/59 (81) 98 Room Air 10/22/18 15:20 97 Room Air 10/22/18 13:00 61 10/22/18 12:00 98.3 64 20 118/51 (73) 96 Room Air 10/22/18 08:13 93 Room Air I & O 10/23/18 07:00 Intake Total 2045 ml Output Total 1800 ml Balance 245 ml Capillary Refill : Less Than 3 Seconds General Appearance: No Apparent Distress, WD/WN HEENT: Normal ENT Inspection Neck: Full Range of Motion, Normal Inspection Respiratory: No Accessory Muscle Use, No Respiratory Distress, Decreased Breath Sounds Cardiovascular: Regular Rate, Rhythm, No Murmur Gastrointestinal: non tender, soft Assessment/Plan Assessment/Plan Assess & Plan/Chief Complaint chest pain. COPD. Coronary artery disease. Obesity. hyperlipidemia Clinical Quality Measures Admission Status Admission Dx Chest pain. Minimally elevated troponin 1. COPD. Tobaccoism. Coronary artery disease AMI/AHF: ASA po Prior to arrival: No DVT/VTE Risk/Contraindication: Risk Factor Score Per Nursin RFS Level Per Nursing on Admit: 3=High Contraindications-Pharm: Other *list below* LAZARO CARREON DO Oct 23, 2018 08:09
[2018-10-23 08:47] VITALS: BP 137/67
--- NOTE | 2018-10-23 09:19 | Progress Note-Cardiology ---
Cardiology SOAP Progress Note Subjective: No cp or palp or syncope Shortness of breath improved Wishes to home Objective: I&O/Vital Signs 10/23/18 10/23/18 10/23/18 10/23/18 00:00 01:00 02:51 04:32 Temp 98.2 97.6 Pulse 69 64 61 Resp 20 20 B/P (MAP) 129/62 (84) 111/56 (74) Pulse Ox 95 90 93 O2 Delivery Room Air Room Air Room Air 10/23/18 10/23/18 07:49 08:47 Temp 97.2 97.4 Pulse 66 72 Resp 20 18 B/P (MAP) 119/56 (77) 137/67 (90) Pulse Ox 95 97 O2 Delivery Room Air Room Air 10/23/18 00:00 Intake Total 1620 ml Output Total 1500 ml Balance 120 ml Weight (Pounds): 273 Weight (Ounces): 7.0 Weight (Calculated Kilograms): 124.581678 Constitutional: AAO x 3, well-developed, well-nourished Respiratory: No accessory muscle use, No respiratory distress; chest expansion is symmetric, chest is bilaterally symmetric, rhonchi (scattered), other ( prolonged expiratory phase) Cardiovascular: regular rate-rhythm; No JVD; S1 and S2, systolic murmur (soft SAM at card bvase) Gastrointestional: No tender; soft, round, audible bowel sounds Extremities: No clubbing, No cyanosis; no lower extremity edema bilateral Neurologic/Psychiatric: grossly intact, power is 5/5 both on sides Skin: No rash on exposed areas, No ulcerations on exposed areas Results/Procedures: Labs Laboratory Tests 10/21/18 12:46 10/22/18 05:25 A/P: Assessment: Chest discomfort, likely musculoskeletal. No distinct evidence of ac NH Minimum troponin elevation, likely due to CHF and intermittent hypoxemia due to COPD Ac on chronic systolic CHF, improved Ischemic cardiomyopathy. Echo of 10/21/18: LVEF 25-30%, anteroseptal and apical akinesis, biatrial enlargement, PASP 25 mmHg Acute on chronic exacerbation of COPD CAD. Cardiac cath of December 10, 2017: Coronary artery disease is consisting of 80 % proximal stenosis of the left anterior descending artery and mid vessel occlusion of the left anterior descending artery. The distal left anterior descending artery is protected by a patent left internal mammary artery graft to the distal left anterior descending artery. A ramus intermedius artery is known to have overlapping stents (Promus 2.5 x 38 and 2.5 x 12) that were exhibiting up to 90% stenosis. The ostial ramus intermedius had 95% stenosis. The left circumflex artery is known to have a 4.0 x 24 mm stent, which was exhibiting 70% stenosis. To these stenoses in the ramus intermedius and in the left circumflex, kissing balloon angioplasty was carried out, which reduced the stenosis to approximately 30%. The distal ramus intermedius artery has 70% stenosis where the vessel is of a small caliber and not amenable to intervention. The right coronary artery is a small, nondominant and has diffuse moderately severe disease. Moderately elevated left ventricular end- diastolic pressure. Anterolateral and apical hypokinesis. Mild impairment of global left ventricular systolic function with ejection fraction 45% to 50%. Abnormal ECG: ECG of 12/10/16 showed NSR with repol abn in anterolat leads, essentially unchanged on 12/04/17 Status post defibrillator placement [place] [address] Reynaga at [facility]. Device was replaced on 07/26/15 after it had reached [place]RIGUEZ. It is fucntioning normally on interrogation of Aug 2018 Reactive airway disease. Chronic tobaccoism - cessation advised Chronic joint and back discomfort. Sleep apnea for which he's on CPAP therapy. History of mild intermittent liver enzyme elevation, likely related to alcohol use, followed by Dr Ryan H/o noncompliance with medications. Hyperlipidemia - PCP managing Mild carotid arterial disease on carotid u/s of 09/07/16 Plan: * Multiple issues reviewed and discussed * We recommend continuing current regimen * We have advised immediate and complete smoking cessation * We advised close outpt clinical f/u for now * We answered his questions in detail Clinical Quality Measures AMI/AHF: ASA po Prior to arrival: ALFREDO Oneill MD FACP FAC CCDS Oct 23, 2018 09:19
[2018-10-23] MEDS ORDERED: VALS80TA PO (09:26)
[2018-10-23] MEDS ORDERED: METO-370 PO (09:26)
[2018-10-23] MEDS ORDERED: ATOR40TA70 PO (09:26)
[2018-10-23] MEDS ORDERED: FURO40TA4 PO (09:26)
[2018-10-23] MEDS ORDERED: SPIR25TA5 PO (09:26)
--- NOTE | 2018-10-23 09:28 | Discharge Inst-Cardiology ---
Discharge Inst-Cardiac Discharge Medications New Medications: Atorvastatin Calcium (Atorvastatin Calcium) 40 Mg Tablet 40 MG PO DAILY for 30 Days, #30 TAB 5 Refills Furosemide (Furosemide) 40 Mg Tablet 40 MG PO DAILY for 30 Days, #30 TAB 5 Refills Spironolactone (Spironolactone) 25 Mg Tablet 25 MG PO DAILY for 30 Days, #30 TAB 5 Refills Metoprolol Succinate (Metoprolol Succinate) 50 Mg Tab.er.24h 50 MG PO DAILY for 30 Days, #30 TAB 5 Refills Valsartan (Diovan) 80 Mg Tablet 80 MG PO DAILY for 30 Days, #30 TAB 5 Refills Continued Medications: Albuterol Sulfate (Ventolin Hfa) 18 Gm Hfa.aer.ad 2 PUFF INH Q4H PRN for SHORTNESS OF BREATH, INHALER Aspirin (Aspirin) 81 Mg Tab.chew 81 MG PO DAILY, TAB Baclofen (Baclofen) 10 Mg Tablet 10 MG PO TID PRN for MUSCLE SPASMS, TAB Clopidogrel Bisulfate (Clopidogrel) 75 Mg Tablet 75 MG PO DAILY, TAB Fluticasone Propionate (Fluticasone Propionate) 16 Gm [place].susp 2 SPRAYS NS DAILY, EA Fluticasone/Salmeterol (Advair 250-50 Diskus) 1 Each Blst.w.dev 1 PUFF IH BID Gabapentin (Gabapentin) 600 Mg Tablet 600 MG PO TID, TAB Nitroglycerin (Nitroglycerin) 0.4 Mg Tab.subl 0.4 MG SL UD PRN for CHEST PAIN, TAB 1 TABLET EVERY 5 MINUTES X 3 DOSES Tiotropium [place] (Spiriva Respimat 2.5MCG/ACTUATION) 4 Gm Mist.inhal 2 PUFF IH DAILY, INH Tramadol HCl (Tramadol HCl) 50 Mg Tablet 50 MG PO TID PRN for PAIN-MILD, TAB Discontinued Medications: Atorvastatin Calcium (Atorvastatin Calcium) 20 Mg Tablet 20 MG PO DAILY, TAB Furosemide (Furosemide) 40 Mg Tablet 40 MG PO DAILY PRN for SWELLING, TAB Potassium Chloride (Potassium Chloride) 10 Meq Tab.er.prt 10 MEQ PO DAILY PRN for WHEN TAKING FUROSEMIDE Patient Instructions Patient Instructions: F/u with Dr Gomes in one week ALFREDO GOMES MD [facility] CCDS Oct 23, 2018 09:28
[2018-10-23 10:30] VITALS: BP 137/67
--- NOTE | 2018-10-23 10:30 | NUR ---
DISCHARGED WITH INSTRUCTIONS.
--- NOTE | 2018-10-24 07:25 | Clinic Account Progress/Dx ---
Clinic Account Progress/Dx DIAGNOSIS: Time Seen by Provider: 07:24 Asked pain of undetermined etiology. Minimal troponin elevation. Ischemic cardiomyopathy. Coronary artery disease. Sleep apnea. Tobaccoism. Hyperlipidemia. Acute and chronic exacerbation of COPD LAZARO CARREON DO Oct 24, 2018 07:25
== END 2018-10-23 09:27 | disposition home or self-care (01) ==
LOC: EDUNIT# 12:25 → ER 12:28 → UNDOADMOB 14:41 → 4TH 14:41 → UNDODISOB 10-23 10:30
PROVIDERS: ADMIT Family Medicine; ATTEND Family Medicine
DX: R07.9 Chest pain, unspecified (principal); I25.10 Atherosclerotic heart disease of native coronary artery without angina pectoris; I25.5 Ischemic cardiomyopathy; E78.5 Hyperlipidemia, unspecified; G47.30 Sleep apnea, unspecified; J44.1 Chronic obstructive pulmonary disease with (acute) exacerbation; F17.210 Nicotine dependence, cigarettes, uncomplicated; I50.23 Acute on chronic systolic (congestive) heart failure; Z95.810 Presence of automatic (implantable) cardiac defibrillator; Z91.19 Patient's noncompliance with other medical treatment and regimen; I77.89 Other specified disorders of arteries and arterioles; E66.9 Obesity, unspecified; Z95.5 Presence of coronary angioplasty implant and graft; Z79.82 Long term (current) use of aspirin; Z79.899 Other long term (current) drug therapy; Z86.73 Personal history of transient ischemic attack (TIA), and cerebral infarction without residual deficits; Z88.0 Allergy status to penicillin
CPT/HCPCS: 36415; 71045; 80053; 80061; 83690; 83735; 83874; 83880; 84484; 85025; 85379; 85610; 85730; 93005; 93041; 93306; 94640; 94760; G0378

== ENCOUNTER → 2018-10-21 | Outpatient (CLI) | payer MEDICARE ==
[~2018-10-21] MED LIST changes: +ALBU18HF2 INH; +ATOR40TA70 PO; +CLOP75TA28 PO; +FLUT16SP22 NS; -GABA600T2 PO; +GBPN600T PO; +METO-370 PO; +SPIR25TA5 PO; +VALS80TA PO
== END ==
LOC: LAB 09:47
PROVIDERS: ATTEND Family Medicine
DX: R07.9 Chest pain, unspecified (principal); J18.9 Pneumonia, unspecified organism
CPT/HCPCS: 36415; 84484

== ENCOUNTER → 2018-11-04 | Outpatient (CLI) | payer MEDICARE ==
[~2018-11-04] MED LIST changes: +ALBU18HF2 INH; +ATOR40TA70 PO; +CLOP75TA28 PO; +FLUT16SP22 NS; +METO-370 PO; +SPIR25TA5 PO; +VALS80TA PO
[2018-11-04 08:39] LABS: BASOPHILS % (AUTO) 0 % (0-10); EOSINOPHILS # (AUTO) 0.4 10^3/uL (0.0-0.3); EOSINOPHILS % (AUTO) 5 % (0-10); HEMATOCRIT 38 % (40-54); HEMOGLOBIN 12.9 G/DL (13.3-17.7); LYMPHOCYTES # (AUTO) 2.3 X 10^3 (1.0-4.0); LYMPHOCYTES % (AUTO) 31 % (12-44); MEAN CORPUSCULAR HEMOGLOBIN 31 PG (25-34); MEAN CORPUSCULAR HGB CONC 34 G/DL (32-36); MEAN CORPUSCULAR VOLUME 93 FL (80-99); MEAN PLATELET VOLUME 10.1 FL (7.4-10.4); MONOCYTES # (AUTO) 0.6 X 10^3 (0.0-1.0); MONOCYTES % (AUTO) 8 % (0-12); NEUTROPHILS # (AUTO) 4.1 X 10^3 (1.8-7.8); NEUTROPHILS % (AUTO) 55 % (42-75); PLATELET COUNT 222 10^3/uL (130-400); RED CELL DISTRIBUTION WIDTH 13.3 % (10.0-14.5); WHITE BLOOD COUNT 7.4 10^3/uL (4.3-11.0)
[2018-11-04 09:02] LABS: BUN/CREATININE RATIO 9; CREATININE SERUM 0.85 MG/DL (0.60-1.30); GFR ESTIMATED > 60
== END ==
LOC: LAB 08:26
PROVIDERS: ATTEND Nurse Practitioner Family
DX: J45.909 Unspecified asthma, uncomplicated (principal); J43.8 Other emphysema; R06.02 Shortness of breath; G47.33 Obstructive sleep apnea (adult) (pediatric); R04.2 Hemoptysis; Z72.0 Tobacco use; Z91.14 Patient's other noncompliance with medication regimen
CPT/HCPCS: 36415; 82565; 84520; 85025

== ENCOUNTER 2018-11-05 06:47 | Outpatient (CLI) | payer MEDICARE ==
[~2018-11-05] VITALS: Ht 172.7 cm; Wt 124.0 kg
== END 2018-11-05 13:00 ==
LOC: PREOP 06:47
PROVIDERS: ATTEND Internal Medicine Critical Care Medicine
DX: Z01.818 Encounter for other preprocedural examination (principal)

== ENCOUNTER 2018-11-12 07:06 | Inpatient (IN) | payer MEDICARE ==
[2018-11-12] VITALS (22 sets, daily range): BP systolic 80–155; BP diastolic 37–97
[~2018-11-12] VITALS: Ht 172.7 cm; Wt 129.7 kg
[2018-11-12] MEDS ORDERED: LIDOCAINE PF 2% 5 ML (XYLOCAINE) VIAL INJ ONE (07:07)
[2018-11-12] MEDS ORDERED: LIDOCAINE PF 1% 2 ML AMP IJ ONE (07:07)
[2018-11-12] MEDS ORDERED: LACTATED RINGERS 1,000 ML IV ONE (07:10)
[2018-11-12] MEDS ORDERED: proPOfol 200 MG/20 ML (DIPRIVAN) VIAL IV ONE (07:25)
[2018-11-12] MEDS ORDERED: LIDOCAINE PF 2% 5 ML (XYLOCAINE) VIAL ONE (07:26)
[2018-11-12] MEDS ORDERED: ETOMIDATE IV SOLN 20 MG/10 ML VIAL ONE (07:26)
[2018-11-12] MEDS ORDERED: fentaNYL INJECTION 100 MCG/2 ML AMP ONE (07:26)
[2018-11-12] MEDS ORDERED: ONDANSETRON 4 MG/2 ML (SDV) Z0FRAN ONE (07:26)
[2018-11-12] MEDS ORDERED: DEXAMETHASONE 10 MG/ML (DECADRON) 1 ML VIAL ONE (07:27)
[2018-11-12] MEDS ORDERED: SUCCINYLCHOLINE INJ 100 MG/5 ML SYR ONE ×2 (07:31→08:41)
[2018-11-12] MEDS ORDERED: ROCURONIUM 10 MG/ML 5 ML SYRINGE IV ONE ×2 (07:32→08:59)
[2018-11-12] MEDS ORDERED: LACTATED RINGERS 1,000 ML IV STA (07:48)
[2018-11-12] MEDS ORDERED: GLYCOPYRROLATE 0.2 MG/ML (ROBINUL) 2 ML VIAL ONE (08:30)
--- OUTSIDE RECORDS SUMMARY | 2018-11-12 08:30 | XMS REPORT | Clinical Summary ---
Author Author [facility] Organization [facility] Address Unknown Phone Unavailable Care Team Providers Care Head Of It Name Role Phone PCP Unavailable Allergies Not [...]
[2018-11-12] MEDS ORDERED: NEOSTIGMINE 1 MG/ML 5 ML SYRINGE ONE (08:31)
--- NOTE | 2018-11-12 08:43 | Pulmonary Procedures ---
Pulmonary Procedures Date of Procedure Date of Service: Nov 12, 2018 Bronch Bronchoscopy with fluoroscopy, RLL bronchoalveolar lavage (BAL), bilateral endobronchial washes and, transbronchial brushes x2 RLL . EBUS used for transbronchial needle aspiration of station 7. Preop DX: MLA hemoptysis Postop DX: MLA, no signs of hemoptysis. No endobronchial lesion. Complications: none After informed consent obtained and formal time out pt was sedated using Fentanyl and Versed. Bronchoscope was advanced through the nare and vocal cords. 1% lidocaine was used to anesthetize vocal cords, epiglottis, regla, and left/right main stem bronchus. An anatomical tour was undertaken down to the segmental bronchi bilaterally. No endobronchial lesions noted. Bronchoscopy with fluoroscopy, RLL bronchoalveolar lavage (BAL), endobronchial washes bilaterally and, transbronchial brushes x2 RLL . EBUS used for transbronchial needle aspiration of station 7. were obtained. Pt tolerated procedure well. No complications noted. Stat CXR is pending. OLGA REBOLLAR DO Nov 12, 2018 08:43
[2018-11-12] MEDS ORDERED: RT-ALBUTEROL HFA (VENTOLIN) PER PUFF IH ONE (08:44)
[2018-11-12] MEDS ORDERED: RT-ALBUTEROL SULF 2.5 MG/3 ML PRE-MIX VIAL ONE (08:46)
[2018-11-12] MEDS ORDERED: MIDAZOLAM 2 MG/2 ML (VERSED) VIAL ONE (08:59)
[2018-11-12] MEDS ORDERED: PROPOFOL DRIP (ICU) 100 ML IV ONE (09:21)
[2018-11-12 10:18] LABS: HEMOGLOBIN 13.3 G/DL (13.3-17.7); MEAN PLATELET VOLUME 10.4 FL (7.4-10.4); RED CELL DISTRIBUTION WIDTH 13.7 % (10.0-14.5); WHITE BLOOD COUNT 14.3 10^3/uL (4.3-11.0)
--- NOTE | 2018-11-12 10:21 | Diagnostic Imaging Report ---
INDICATION: Status post bronchoscopy. COMPARISON: 10/21/2018. FINDINGS: Two frontal radiographic views of the chest were obtained. Indwelling endotracheal tube is noted with the tip below the clavicular heads and above the regla. Gastric tube extends inferiorly beyond the [id number]. Since the previous exam, there has been interval development of diffuse patchy alveolar infiltrates throughout the right lung with area of more focal consolidation within the right lung base. Air bronchograms are noted. Left lung is relatively clear. There is no large effusion or pneumothorax on either side. Cardiac silhouette is moderately enlarged, pulmonary vasculature is within normal. Left-sided AICD and sternotomy wires are noted. IMPRESSION: 1. Interval development of diffuse infiltrate throughout right lung with greater area of consolidation in the right base. 2. Moderate cardiomegaly. 3. Lines and tubes as above. Dictated by: Dictated on workstation # [id number]
[2018-11-12] MEDS ORDERED: NS (IVPB) 50 ML ONE (10:41)
[2018-11-12 10:46] LABS: ALANINE AMINOTRANSFERASE 103 U/L (0-55); ALBUMIN 3.7 GM/DL (3.2-4.5); ALKALINE PHOSPHATASE 54 U/L (40-136); BILIRUBIN,TOTAL 0.4 MG/DL (0.1-1.0); BUN/CREATININE RATIO 16; CALCIUM 8.4 MG/DL (8.5-10.1); CARBON DIOXIDE 24 MMOL/L (21-32); CHLORIDE 104 MMOL/L (98-107); CREATININE SERUM 0.94 MG/DL (0.60-1.30); GFR ESTIMATED > 60; GLUCOSE 140 MG/DL (70-105); MAGNESIUM 2.3 MG/DL (1.8-2.4); PHOSPHORUS 5.8 MG/DL (2.3-4.7); POTASSIUM 4.6 MMOL/L (3.6-5.0); SODIUM 134 MMOL/L (135-145); TOTAL PROTEIN 6.2 GM/DL (6.4-8.2); TRIGLYCERIDES 261 MG/DL (<150)
[2018-11-12] MEDS: PROPOFOL DRIP (ICU) 100 ML IV SCH ×6 (10:46→22:42)
[2018-11-12] MEDS: DEXMEDETOMIDINE INJECTION 200 MCG in NS (IVPB) 50 ML IV SCH ×2 (10:46→12:21)
[2018-11-12] MEDS ORDERED: CATHETER FLUSH 10 ML SYR IV PRN (11:00)
--- NOTE | 2018-11-12 11:25 | Consultation-Cardiology ---
HPI-Cardiology Cardiology Consultation: Date of Consultation 11/12/18 Time Seen by a Provider: 11:20 Date of Admission 11-12-18 Attending Physician Remington Chaudhari DO Admitting Physician Joaquin Ryan DO Consulting Physician Jacklyn Gomes MD HPI: Chief Complaint: CAD Mr. Warren is a 58 year old male admitted to ICU 5 post bronchoscopy on the ventilator. He is currently intubated and sedated and unable to provide any information. No visible signs of distress. He has a family member x1 at the bedside. Review of Systems-Cardiology Review of Systems Other comments Unable to obtain ROS d/t intubation and sedation. PVA-Dcfoix-Aeantc Hx Patient Social History Alcohol Use: Occasionally Uses Recreational Drug Use: No Drug of Choice: "ALL KINDS" WHEN IN 20'S Type Used: Cigars, Cigarettes 2nd Hand Smoke Exposure: Yes Recent Foreign Travel: No Immunizations Up To Date Tetanus Booster (TDap): Less than 5yrs Date of Pneumonia Vaccine: May 10, 2017 Date of Influenza Vaccine: Jul 10, 2018 Past Medical History PMH As described under Assessment. Family Medical History Family Medical History: Family h/o mother having CAD and HTN. Family History: Cardiovascular disease 19 MOTHER PATERNAL GRANDMOTHER Completed stroke PATERNAL GRANDFATHER Diabetes mellitus 19 MOTHER Hypertension 19 MOTHER PATERNAL GRANDMOTHER Neoplasm 19 FATHER (LUNG CANCER - AGE 42) MATERNAL GRANDMOTHER (BREAST CANCER) Allergies and Home Medications Allergies Coded Allergies: Penicillins (Verified Allergy, Mild, ITCHING, 11/05/18) ketorolac (Unverified Allergy, Mild, ITCHING, 11/05/18) Home Medications Albuterol Sulfate 18 Gm Hfa.aer.ad, 2 PUFF INH Q4H PRN for SHORTNESS OF BREATH, (Reported) Aspirin 81 Mg Tab.chew, 81 MG PO DAILY, (Reported) Atorvastatin Calcium 40 Mg Tablet, 40 MG PO DAILY Prescribed by: JACKLYN GOMES on 10/23/18 0926 Baclofen 10 Mg Tablet, 10 MG PO TID PRN for MUSCLE SPASMS, (Reported) Clopidogrel Bisulfate 75 Mg Tablet, 75 MG PO DAILY, (Reported) Fluticasone Propionate 16 Gm [place].susp, 2 SPRAYS NS DAILY, (Reported) Fluticasone/Salmeterol 1 Each Blst.w.dev, 1 PUFF IH BID, (Reported) Furosemide 40 Mg Tablet, 40 MG PO DAILY Prescribed by: AJCKLYN GOMES on 10/23/18925 Gabapentin 600 Mg Tablet, 600 MG PO TID, (Reported) Metoprolol Succinate 50 Mg Tab.er.24h, 50 MG PO DAILY Prescribed by: JACKLYN GOMES on 10/23/18925 Nitroglycerin 0.4 Mg Tab.subl, 0.4 MG SL UD PRN for CHEST PAIN, (Reported) 1 TABLET EVERY 5 MINUTES X 3 DOSES Spironolactone 25 Mg Tablet, 25 MG PO DAILY Prescribed by: JACKLYN GOMES on 10/23/18925 Tiotropium [place] 4 Gm Mist.inhal, 2 PUFF IH DAILY, (Reported) Tramadol HCl 50 Mg Tablet, 50 MG PO TID PRN for PAIN-MILD, (Reported) Valsartan 80 Mg Tablet, 80 MG PO DAILY Prescribed by: JACKLYN GOMES on 10/23/18925 Patient Home Medication List Home Medication List Reviewed: Yes Physical Exam-Cardiology Physical Exam Vital Signs/I&O 11/12/18 11/12/18 11/12/18 11/12/18 07:59 09:22 09:25 10:00 Temp 98.4 Pulse 88 104 102 102 Resp 20 16 15 B/P (MAP) 141/73 (95) 117/68 (84) Pulse Ox 98 99 94 O2 Delivery Room Air Mechanical Ventilator O2 Flow Rate 60.00 FiO2 75 11/12/18 11/12/18 11/12/18 11/12/18 10:45 10:46 11:00 11:18 Pulse 93 92 96 78 Resp 17 B/P (MAP) 113/67 (82) Pulse Ox 91 O2 Delivery Mechanical Ventilator O2 Flow Rate 60.00 11/12/18 11/12/18 11/12/18 11/12/18 12:00 13:00 13:00 13:08 Temp 98.8 Pulse 62 64 64 Resp 10 20 B/P (MAP) 80/37 (51) 97/64 (75) Pulse Ox 100 100 100 O2 Delivery Mechanical Ventilator Mechanical Ventilator Mechanical Ventilator O2 Flow Rate 60.00 60.00 FiO2 60 11/12/18 11/12/18 11/12/18 11/12/18 13:28 14:00 14:21 15:00 Pulse 63 66 63 62 Resp 19 B/P (MAP) 101/72 (82) 97/64 (75) Pulse Ox 99 97 99 O2 Delivery Mechanical Ventilator Mechanical Ventilator O2 Flow Rate 45.00 45.00 FiO2 60 11/12/18 11/12/18 11/12/18 11/12/18 15:22 15:58 16:00 16:00 Temp 98.8 Pulse 62 Resp 20 Pulse Ox 100 100 O2 Delivery Mechanical Ventilator Mechanical Ventilator O2 Flow Rate 40.00 FiO2 45 40 11/12/18 11/12/18 11/12/18 17:00 17:09 17:16 Pulse 74 71 71 Resp 20 22 B/P (MAP) 127/82 (97) Pulse Ox 97 100 O2 Delivery Mechanical Ventilator O2 Flow Rate 30.00 FiO2 40 Capillary Refill : Constitutional: appears stated age; No apparent distress; well-developed, well- nourished HEENT: oral hygience is good Neck: No carotid bruit; carotid pulses are 2 + bilaterally Respiratory: rhonchi (scattered), other (intubated) Cardiovascular: regular rate-rhythm; No JVD; S1 and S2, systolic murmur Gastrointestinal: soft, round, audible bowel sounds Extremities: no lower extremity edema bilateral Neurologic/Psychiatric: other (sedated; moves extermities) Skin: No rash, No ulcerations Data Review Labs Laboratory Tests 11/12/18 08:30: Body Fluid Source BRONCH LAVAGE, Body Fluid Color COLORLESS, Body Fluid Appearance SLT CLDY, Body Fluid Polynuclear WBCs , Body Fluid Mononuclear WBCs , Body Fluid Lymphocytes , Body Fluid Other Cells 100 11/12/18 10:10: White Blood Count 14.3H, Red Blood Count 4.31L, Hemoglobin 13.3, Hematocrit 41, Mean Corpuscular Volume 96, Mean Corpuscular Hemoglobin 31, Mean Corpuscular Hemoglobin Concent 32, Red Cell Distribution Width 13.7, Platelet Count 210, Mean Platelet Volume 10.4, Sodium Level 134L, Potassium Level 4.6, Chloride Level 104, Carbon Dioxide Level 24, Anion Gap 6, Blood Urea Nitrogen 15, Creatinine 0.94, Estimat Glomerular Filtration Rate > 60, BUN/Creatinine Ratio 16, Glucose Level 140H, Calcium Level 8.4L, Corrected Calcium 8.6, Phosphorus Level 5.8H, Magnesium Level 2.3, Total Bilirubin 0.4, Aspartate Amino Transf ( AST/SGOT) 149H, Alanine Aminotransferase (ALT/SGPT) 103H, Alkaline Phosphatase 54, B-Type Natriuretic Peptide 77.8, Total Protein 6.2L, Albumin 3.7, Triglycerides Level 261H Radiology NAME: BRAD WARREN [facility] REC#: [id number] PT STATUS: REG SDC : 1960 PHYSICIAN: REMINGTON CHAUDHARI DO ADMIT DATE: 11/12/18/ENDO Draft Date of Exam:11/12/18 CHEST 1 VIEW, AP/PA ONLY INDICATION: Status post bronchoscopy. COMPARISON: 10/21/2018. FINDINGS: Two frontal radiographic views of the chest were obtained. Indwelling endotracheal tube is noted with the tip below the clavicular heads and above the regla. Gastric tube extends inferiorly beyond the [id number]. Since the previous exam, there has been interval development of diffuse patchy alveolar infiltrates throughout the right lung with area of more focal consolidation within the right lung base. Air bronchograms are noted. Left lung is relatively clear. There is no large effusion or pneumothorax on either side. Cardiac silhouette is moderately enlarged, pulmonary vasculature is within normal. Left-sided AICD and sternotomy wires are noted. IMPRESSION: 1. Interval development of diffuse infiltrate throughout right lung with greater area of consolidation in the right base. 2. Moderate cardiomegaly. 3. Lines and tubes as above. Dictated on workstation # [id number] Dict: 11/12/18 1013 Trans: 11/12/18 1021 [facility] [id number] Interpreted by: NAM TOLBERT MD Electronically signed by: A/P-Cardiology Assessment/Admission Diagnosis Intubated and maintained on the vent post bronchoscopy Acute on Chronic systolic CHF Ischemic cardiomyopathy. Echo of 10/21/18: LVEF 25-30%, anteroseptal and apical akinesis, biatrial enlargement, PASP 25 mmHg COPD CAD. Cardiac cath of December 10, 2017: Coronary artery disease is consisting of 80 % proximal stenosis of the left anterior descending artery and mid vessel occlusion of the left anterior descending artery. The distal left anterior descending artery is protected by a patent left internal mammary artery graft to the distal left anterior descending artery. A ramus intermedius artery is known to have overlapping stents (Promus 2.5 x 38 and 2.5 x 12) that were exhibiting up to 90% stenosis. The ostial ramus intermedius had 95% stenosis. The left circumflex artery is known to have a 4.0 x 24 mm stent, which was exhibiting 70% stenosis. To these stenoses in the ramus intermedius and in the left circumflex, kissing balloon angioplasty was carried out, which reduced the stenosis to approximately 30%. The distal ramus intermedius artery has 70% stenosis where the vessel is of a small caliber and not amenable to intervention. The right coronary artery is a small, nondominant and has diffuse moderately severe disease. Moderately elevated left ventricular end- diastolic pressure. Anterolateral and apical hypokinesis. Mild impairment of global left ventricular systolic function with ejection fraction 45% to 50%. Abnormal ECG: ECG of 12/10/16 showed NSR with repol abn in anterolat leads, essentially unchanged on 12/04/17 Status post defibrillator placement [place] [address] Reynaga at [facility]. Device was replaced on 07/26/15 after it had reached RODRIGUEZ. It is fucntioning normally on interrogation of Aug 2018 Reactive airway disease. Chronic tobaccoism - cessation advised Chronic joint and back discomfort. Sleep apnea for which he's on CPAP therapy. History of mild intermittent liver enzyme elevation, likely related to alcohol use, followed by Dr Ryan H/o noncompliance with medications. Hyperlipidemia - PCP managing Mild carotid arterial disease on carotid u/s of 09/07/16 Discussion and Recomendations Intubated and maintained on the vent - management per Dr. Chaudhari Acute on chronic systolic CHF - treat with diuretics as tolerated Hypotension - hold anti-hypertensives for now Monitor lab closely Continue home medications Further recs will be based on his hospital course We have spoken with his family We have spoken with Dr. Chaudhari Physician Assessment Physician Assessment Not able to provide any history On [facility] vent Lungs: scattered rhonchi; prolonged exp Cor: reg Ext: no c/c/e A&R * As documented in our note above that I updated (italics) and as noted below * Complex management due to multiple, advance comorbidities * Continue current regimen * Monitor labs JOS DIAS Nov 12, 2018 11:25 JACKLYN GOMES MD [facility] Nov 12, 2018 17:46
--- NOTE | 2018-11-12 11:26 | Pulmonary Consultation ---
History of Present Illness History of Present Illness Date of Consultation 11/12/18 11:21 Time Seen by Provider: 11:21 Date of Admission History of Present Illness 58yo who was directly admitted after bronchoscopy with EBUS secondary to acute respiratory failure. Pt did well during procedure with min bleeding. After extubation pt became very SOB and lethargic. Anesthesia elected to reintubate. Pt is being admitted to ICU and will remain on ventilator today. I will probably extubate pt tomorrow. I am consulted for pulmonary/ICU management. Allergies and Home Medications Allergies Coded Allergies: Penicillins (Verified Allergy, Mild, ITCHING, 11/05/18) ketorolac (Unverified Allergy, Mild, ITCHING, 11/05/18) Home Medications Albuterol Sulfate 18 Gm Hfa.aer.ad, 2 PUFF INH Q4H PRN for SHORTNESS OF BREATH, (Reported) Aspirin 81 Mg Tab.chew, 81 MG PO DAILY, (Reported) Atorvastatin Calcium 40 Mg Tablet, 40 MG PO DAILY Prescribed by: ALFREDO WANG on 10/23/18925 Baclofen 10 Mg Tablet, 10 MG PO TID PRN for MUSCLE SPASMS, (Reported) Clopidogrel Bisulfate 75 Mg Tablet, 75 MG PO DAILY, (Reported) Fluticasone Propionate 16 Gm [place].susp, 2 SPRAYS NS DAILY, (Reported) Fluticasone/Salmeterol 1 Each Blst.w.dev, 1 PUFF IH BID, (Reported) Furosemide 40 Mg Tablet, 40 MG PO DAILY Prescribed by: ALFREDO WANG on 10/23/18925 Gabapentin 600 Mg Tablet, 600 MG PO TID, (Reported) Metoprolol Succinate 50 Mg Tab.er.24h, 50 MG PO DAILY Prescribed by: ALFREDO WANG on 10/23/18925 Nitroglycerin 0.4 Mg Tab.subl, 0.4 MG SL UD PRN for CHEST PAIN, (Reported) 1 TABLET EVERY 5 MINUTES X 3 DOSES Spironolactone 25 Mg Tablet, 25 MG PO DAILY Prescribed by: ALFREDO WANG on 10/23/18925 Tiotropium [place] 4 Gm Mist.inhal, 2 PUFF IH DAILY, (Reported) Tramadol HCl 50 Mg Tablet, 50 MG PO TID PRN for PAIN-MILD, (Reported) Valsartan 80 Mg Tablet, 80 MG PO DAILY Prescribed by: ALFREDO WANG on 10/23/18925 Past Onhwily-Sjtcuf-Yrtytr Hx Patient Social History Alcohol Use: Occasionally Uses Number of Drinks Today: AA Alcohol Beverage of Choice: Beer Recreational Drug Use: No Drug of Choice: "ALL KINDS" WHEN IN 20'S Type Used: Cigars, Cigarettes 2nd Hand Smoke Exposure: Yes Recent Foreign Travel: No Contact w/Someone Who Travel: No Recent Hopitalizations: Yes (TROPONIN LEVELS HIGH) Immunizations Up To Date Tetanus Booster (TDap): Less than 5yrs Date of Pneumonia Vaccine: May 10, 2017 Date of Influenza Vaccine: Jul 10, 2018 Seasonal Allergies Seasonal Allergies: No Past Medical History Surgeries: Yes Adenoidectomy, Cardiac, CABG, Coronary Stent, Defibrillator, Open Heart Surgery , Orthopedic, Pacemaker, Tonsillectomy Respiratory: Yes (CONTINUES TO SMOKE) Asthma, Sleep Apnea, COPD Currently Using CPAP: Yes (WEARS OCCASIONALLY) Currently Using BIPAP: No Cardiac: Yes (STENT-2016) Cardiomyopathy, Coronary Artery Disease, Heart Attack, High Cholesterol, Hypertension Neurological: Yes ("Minor stroke") Stroke Reproductive Disorders: No Sexually Transmitted Disease: No HIV/AIDS: No Genitourinary: No Gastrointestinal: No Musculoskeletal: Yes (CHRONIC KNEE PAIN) Degenerate Disk Disease, Arthritis, Chronic Back Pain Endocrine: No HEENT: Yes (READING GLASSES) Loss of Vision: Bilateral Hearing Impairment: Denies Cancer: No Psychosocial: Yes (FROM PAIN) Anxiety Integumentary: No Blood Disorders: No Adverse Reaction/Blood Tranf: No (N/A) Family Medical History Cardiovascular disease 19 MOTHER PATERNAL GRANDMOTHER Completed stroke PATERNAL GRANDFATHER Diabetes mellitus 19 MOTHER Hypertension 19 MOTHER PATERNAL GRANDMOTHER Neoplasm 19 FATHER (LUNG CANCER - AGE 42) MATERNAL GRANDMOTHER (BREAST CANCER) No Pertinent Family Hx Review of Systems Time Seen by Provider: 05:27 Constitutional: Weakness, Malaise; No: Fever, Chills, Sweats, Other Eyes: No: Pain, Vision change, Conjunctivae inflammation, Eyelid inflammation, Other, Redness ENT: No: Ear pain, Ear discharge, Nose pain, Nose discharge, Nose congestion, Mouth pain, Mouth swelling, Throat pain, Throat swelling, Other Respiratory: Cough, Dry, Shortness of breath, SOB with excertion, Wheezing Sepsis Event Evaluation Height, Weight, BMI Height: 5'8.00" Weight: 273lbs. 7.0oz. 124.020938ge; 41.6 BMI Method:Stated Exam Exam Vital Signs Date Time Temp Pulse Resp B/P (MAP) Pulse Ox O2 Delivery O2 Flow Rate FiO2 11/12/18 11:18 78 11/12/18 10:46 92 11/12/18 10:45 93 11/12/18 09:25 102 16 99 75 11/12/18 07:59 98.4 88 20 141/73 (95) 98 Room Air Height & Weight Height: 5'8.00" Weight: 273lbs. 7.0oz. 124.235249au; 41.6 BMI Method:Stated General Appearance: Moderate Distress, Obese, Other (pt is sedated on ) HEENT: PERRL/EOMI, Normal ENT Inspection, Pharynx Normal Neck: Full Range of Motion, Non Tender, Supple Respiratory: No Accessory Muscle Use, No Respiratory Distress, Decreased Breath Sounds Results Lab Laboratory Tests 11/12/18 10:10 Assessment/Plan Assessment/Plan Acute respiratory failure s/p bronchoscopy with EBUS -Will leave on vent today and probably extubate tomorrow -Place on heated circ. -Check ABG, CXR -SVNS duoneb Q 4 -Check influ and MRSA swabs -Sputum culture pending Leukocytosis - R/o infection reactive doubt infection -Will start Cefepime for now -Pt's previous MRSA swabs have been negative will repeat Hypotension - probably secondary to Diprivan -IVF Hyponatremia -Monitor CHF EF 25%, CAD -Consult Cardiology OLGA REBOLLAR DO Nov 12, 2018 11:26
[2018-11-12] MEDS ORDERED: fentaNYL INJECTION 1,250 MCG in NS (IVPB) 250 ML IV SCH ×2 (11:30→12:15)
[2018-11-12] MEDS: NS IV 1000 ML 1,000 ML IV SCH ×2 (12:57→17:35)
--- NOTE | 2018-11-12 12:59 | History & Physicial ---
History of Present Illness History of Present Illness Reason for visit/HPI Patient had bronchoscopy this a.m. Patient did well during the bronchoscopy. Patient short of breath after that. Patient put on ventilator and intubated. Chest x-ray shows pneumonia. This was done after bronchoscopy Date of Admission Time Seen by a Provider: 12:54 I consulted on this patient on 11/12/18 12:54 Attending Physician Remington Chaudhari DO Admitting Physician Joaquin Ryan DO Consult Allergies and Home Medications Allergies Coded Allergies: Penicillins (Verified Allergy, Mild, ITCHING, 11/05/18) ketorolac (Unverified Allergy, Mild, ITCHING, 11/05/18) Home Medications Albuterol Sulfate 18 Gm Hfa.aer.ad, 2 PUFF INH Q4H PRN for SHORTNESS OF BREATH, (Reported) Aspirin 81 Mg Tab.chew, 81 MG PO DAILY, (Reported) Atorvastatin Calcium 40 Mg Tablet, 40 MG PO DAILY Prescribed by: ALFREDO WANG on 10/23/18925 Baclofen 10 Mg Tablet, 10 MG PO TID PRN for MUSCLE SPASMS, (Reported) Clopidogrel Bisulfate 75 Mg Tablet, 75 MG PO DAILY, (Reported) Fluticasone Propionate 16 Gm [place].susp, 2 SPRAYS NS DAILY, (Reported) Fluticasone/Salmeterol 1 Each Blst.w.dev, 1 PUFF IH BID, (Reported) Furosemide 40 Mg Tablet, 40 MG PO DAILY Prescribed by: ALFREDO WANG on 10/23/18925 Gabapentin 600 Mg Tablet, 600 MG PO TID, (Reported) Metoprolol Succinate 50 Mg Tab.er.24h, 50 MG PO DAILY Prescribed by: ALFREDO WANG on 10/23/18925 Nitroglycerin 0.4 Mg Tab.subl, 0.4 MG SL UD PRN for CHEST PAIN, (Reported) 1 TABLET EVERY 5 MINUTES X 3 DOSES Spironolactone 25 Mg Tablet, 25 MG PO DAILY Prescribed by: ALFREDO WANG on 10/23/18925 Tiotropium [place] 4 Gm Mist.inhal, 2 PUFF IH DAILY, (Reported) Tramadol HCl 50 Mg Tablet, 50 MG PO TID PRN for PAIN-MILD, (Reported) Valsartan 80 Mg Tablet, 80 MG PO DAILY Prescribed by: ALFREDO WANG on 10/23/18925 Patient Home Medication List Home Medication List Reviewed: No Past Qzjbrnz-Dxviel-Cicxot Hx Patient Social History Marrital Status: Employed/Student: retired Alcohol Use: Occasionally Uses Number of Drinks Today: AA Alcohol Beverage of Choice: Beer Recreational Drug Use: No Drug of Choice: "ALL KINDS" WHEN IN 20'S Type Used: Cigars, Cigarettes 2nd Hand Smoke Exposure: Yes Recent Foreign Travel: No Contact w/other who traveled: No Recent Hopitalizations: Yes (TROPONIN LEVELS HIGH) Immunizations Up To Date Tetanus Booster (TDap): Less than 5yrs Date of Pneumonia Vaccine: May 10, 2017 Date of Influenza Vaccine: Jul 10, 2018 Seasonal Allergies Seasonal Allergies: No Surgeries Yes Adenoidectomy, Cardiac, CABG, Coronary Stent, Defibrillator, Open Heart Surgery , Orthopedic, Pacemaker, Tonsillectomy Respiratory Yes (CONTINUES TO SMOKE) Asthma, COPD Currently Using CPAP: Yes (WEARS OCCASIONALLY) Currently Using BIPAP: No Cardiovascular Yes (STENT-2016) Cardiomyopathy, Coronary Artery Disease, Heart Attack, High Cholesterol, Hypertension Neurological Yes ("Minor stroke") Stroke Reproductive System Hx Reproductive Disorders: No Sexually Transmitted Disease: No HIV/AIDS: No Genitourinary No Gastrointestinal No Musculoskeletal Yes (CHRONIC KNEE PAIN) Degenerate Disk Disease, Arthritis, Chronic Back Pain Endocrine History of Endocrine Disorders: No HEENT History of HEENT Disorders: Yes (READING GLASSES) Loss of Vision: Bilateral Hearing Impairment: Denies Cancer No Psychosocial History of Psychiatric Problem: Yes (FROM PAIN) Behavioral Health Disorders: Anxiety Integumentary History of Skin or Integumenta: No Blood Transfusions History of Blood Disorders: No Adverse Reaction to a Blood Tr: No (N/A) Family Medical History Significant Family History: No Pertinent Family Hx Family Hx: Cardiovascular disease 19 MOTHER PATERNAL GRANDMOTHER Completed stroke PATERNAL GRANDFATHER Diabetes mellitus 19 MOTHER Hypertension 19 MOTHER PATERNAL GRANDMOTHER Neoplasm 19 FATHER (LUNG CANCER - AGE 42) MATERNAL GRANDMOTHER (BREAST CANCER) Review of Systems Constitutional: other (Patient on ventilator and intubated) EENTM: no symptoms reported Respiratory: short of breath, other (Hemoptysis) Cardiovascular: other (History of heart disease) Gastrointestinal: no symptoms reported Genitourinary: no symptoms reported Physical Exam Vital Signs Vital Signs - First Documented 11/12/18 11/12/18 07:59 09:25 Temp 98.4 Pulse 88 Resp 20 B/P (MAP) 141/73 (95) Pulse Ox 98 O2 Delivery Room Air FiO2 75 Capillary Refill : Height, Weight, BMI Height: 5'8.00" Weight: 273lbs. 7.0oz. 124.188432cr; 41.6 BMI Method:Stated General Appearance: No Apparent Distress, WD/WN Respiratory: Other (Patient on ventilator intubated and lungs coarse) Cardiovascular: Regular Rate, Rhythm, No Murmur Gastrointestinal: Non Tender, Soft Assessment/Plan Assessment and Plan Intubated and on ventilator post bronchoscopy. COPD. CAD. Hypotension. Tobaccoism. Asthma. Admission Diagnosis Admission Status: Inpatient Order (span 2 midnights) Reason for Inpatient Admission: On ventilator. COPD. Short of breath. CAD. Chest x-ray may show pneumonia post bronchoscopy JOAQUIN RYAN DO Nov 12, 2018 12:59
[2018-11-12 13:08] LABS: BF OTHER CELLS 100 %; BODY FLUID APPEARENCE SLT CLDY; BODY FLUID COLOR COLORLESS; BODY FLUID SOURCE BRONCH LAVAGE
--- NOTE | 2018-11-12 13:28 | Diagnostic Imaging Report ---
INDICATION: Bronchoscopy. COMPARISON: 10/21/2018. TOTAL FLUOROSCOPY TIME: 12.9 seconds. TOTAL NUMBER OF IMAGES SAVED: 1. FINDINGS: A single intraoperative image intensifier view of the right chest was obtained during bronchoscopy. A bronchoscope is noted projecting over the right lower lobe bronchus. Please note, the interpreting radiologist was not present during the procedure. IMPRESSION: Fluoroscopic guidance was provided during bronchoscopy. Dictated by: Dictated on workstation # [id number]
[2018-11-12] MEDS: DEXMEDETOMIDINE INJECTION 1,000 MCG in NS (IVPB) 250 ML IV SCH ×2 (14:05→19:34)
[2018-11-12] MEDS: RT-ALBUTEROL/IPRATROPIUM 3 ML (DUONEB) VIAL INH SCH ×3 (15:22→22:42)
[2018-11-12] MEDS: inSUlin ASPART (NovoLOG) 1 UNIT/0.01 ML (CHARGE PER UNIT) SC SCH (18:53)
[2018-11-12] MEDS: CEFEPIME INJECTION 2,000 MG in WATER (STERILE) FOR INJECTION 20 ML IV SCH (21:00)
[2018-11-13] VITALS (23 sets, daily range): BP systolic 90–157; BP diastolic 51–98
[2018-11-13] MEDS: inSUlin ASPART (NovoLOG) 1 UNIT/0.01 ML (CHARGE PER UNIT) SC SCH ×2 (00:25→08:25)
[2018-11-13] MEDS: NS IV 1000 ML 1,000 ML IV SCH (00:25)
[2018-11-13] MEDS: DEXMEDETOMIDINE INJECTION 1,000 MCG in NS (IVPB) 250 ML IV SCH ×2 (01:29→08:25)
[2018-11-13] MEDS: PROPOFOL DRIP (ICU) 100 ML IV SCH ×2 (01:29→04:13)
[2018-11-13] MEDS: RT-ALBUTEROL/IPRATROPIUM 3 ML (DUONEB) VIAL INH SCH ×6 (02:37→22:42)
[2018-11-13 03:47] LABS: ABG BASE EXCESS -1.2 MMOL/L (-2.5-2.5); ABG OXYGEN SATURATION 96 % (94-100); ABG PCO2 38 MMHG (35-45); ABG PO2 84 MMHG (79-93); ABG TCO2 23.8 MMOL/L (21.0-31.0)
[2018-11-13 03:48] LABS: ALLENS TEST POSITIVE; INSPIRED O2 25%; PATIENT TEMP 100.6; VENTILATOR YES
[2018-11-13 03:59] LABS: BASOPHILS % (AUTO) 0 % (0-10); EOSINOPHILS % (AUTO) 0 % (0-10); HEMATOCRIT 40 % (40-54); HEMOGLOBIN 13.4 G/DL (13.3-17.7); LYMPHOCYTES # (AUTO) 1.4 X 10^3 (1.0-4.0); LYMPHOCYTES % (AUTO) 9 % (12-44); MEAN CORPUSCULAR HEMOGLOBIN 31 PG (25-34); MEAN CORPUSCULAR HGB CONC 34 G/DL (32-36); MEAN CORPUSCULAR VOLUME 93 FL (80-99); MEAN PLATELET VOLUME 10.8 FL (7.4-10.4); MONOCYTES % (AUTO) 7 % (0-12); NEUTROPHILS # (AUTO) 13.1 X 10^3 (1.8-7.8); NEUTROPHILS % (AUTO) 84 % (42-75); PLATELET COUNT 176 10^3/uL (130-400); RED CELL DISTRIBUTION WIDTH 13.8 % (10.0-14.5); WHITE BLOOD COUNT 15.5 10^3/uL (4.3-11.0)
[2018-11-13 04:19] LABS: ALANINE AMINOTRANSFERASE 88 U/L (0-55); ALBUMIN 3.7 GM/DL (3.2-4.5); ALKALINE PHOSPHATASE 51 U/L (40-136); BILIRUBIN,TOTAL 0.4 MG/DL (0.1-1.0); BUN/CREATININE RATIO 18; CALCIUM 7.7 MG/DL (8.5-10.1); CARBON DIOXIDE 18 MMOL/L (21-32); CHLORIDE 106 MMOL/L (98-107); CREATININE SERUM 1.14 MG/DL (0.60-1.30); GFR ESTIMATED > 60; GLUCOSE 173 MG/DL (70-105); MAGNESIUM 2.1 MG/DL (1.8-2.4); PHOSPHORUS 3.5 MG/DL (2.3-4.7); POTASSIUM 4.8 MMOL/L (3.6-5.0); SODIUM 137 MMOL/L (135-145); TOTAL PROTEIN 6.2 GM/DL (6.4-8.2)
[2018-11-13 05:15] LABS: LYMPHOCYTES % (MANUAL) 11 %; MONOCYTES % (MANUAL) 8 %; NEUTROPHILS % (MANUAL) 81 %
[2018-11-13] MEDS ORDERED: FUROSEMIDE 40 MG/4 ML INJ (LASIX) IVP ONE (05:30)
--- NOTE | 2018-11-13 05:31 | Pulmonary Progress Note ---
Subjective Time Seen by a Provider: 05:31 Subjective/Events-last exam Pt is sedated on vent. Sepsis Event Evaluation Height, Weight, BMI Height: 5'8.00" Weight: 273lbs. 7.0oz. 124.973138gk; 41.6 BMI Method:Stated Exam Exam Vital Signs Date Time Temp Pulse Resp B/P (MAP) Pulse Ox O2 Delivery O2 Flow Rate FiO2 11/13/18 04:20 84 28 99 25 11/13/18 04:13 157/94 11/13/18 04:00 98 Mechanical Ventilator 25 11/13/18 04:00 84 28 154/94 (114) 98 Mechanical Ventilator 25.00 11/13/18 03:00 85 26 152/91 (111) 99 Mechanical Ventilator 25.00 11/13/18 02:37 84 25 98 25 11/13/18 02:00 84 24 155/92 (113) 98 Mechanical Ventilator 25.00 11/13/18 01:29 151/93 11/13/18 01:00 85 22 154/94 (114) 98 Mechanical Ventilator 25.00 11/13/18 01:00 85 11/13/18 00:15 85 25 99 25 11/13/18 00:00 98 Mechanical Ventilator 25 11/13/18 00:00 86 23 154/95 (114) 98 Mechanical Ventilator 25.00 11/12/18 23:00 83 27 150/90 (110) 98 Mechanical Ventilator 25.00 11/12/18 22:42 155/94 11/12/18 22:42 75 27 98 30 11/12/18 22:00 76 23 154/95 (114) 98 Mechanical Ventilator 25.00 11/12/18 21:00 77 21 152/97 (115) 98 Mechanical Ventilator 25.00 11/12/18 20:05 79 22 99 Mechanical Ventilator 25.00 11/12/18 20:05 79 24 99 30 11/12/18 20:00 99 Mechanical Ventilator 40 11/12/18 20:00 79 19 153/95 (114) 99 Mechanical Ventilator 30.00 11/12/18 19:40 80 11/12/18 19:00 81 23 145/95 (112) 99 Mechanical Ventilator 30.00 11/12/18 19:00 81 11/12/18 18:18 74 20 98 30 11/12/18 18:00 74 19 132/86 (101) 97 Mechanical Ventilator 40.00 11/12/18 17:16 71 22 100 40 11/12/18 17:09 71 11/12/18 17:00 74 20 127/82 (97) 97 Mechanical Ventilator 30.00 11/12/18 16:00 98.8 11/12/18 16:00 100 Mechanical Ventilator 40 11/12/18 16:00 68 20 113/78 (90) 100 Mechanical Ventilator 40.00 11/12/18 15:58 Mechanical Ventilator 40.00 11/12/18 15:22 62 20 100 45 11/12/18 15:00 62 19 97/64 (75) 99 Mechanical Ventilator 45.00 11/12/18 14:21 63 11/12/18 14:00 66 26 101/72 (82) 97 Mechanical Ventilator 45.00 11/12/18 13:28 63 20 99 60 11/12/18 13:08 100 Mechanical Ventilator 60 11/12/18 13:00 64 20 97/64 (75) 100 Mechanical Ventilator 60.00 11/12/18 13:00 64 11/12/18 12:00 98.8 62 10 80/37 (51) 100 Mechanical Ventilator 60.00 11/12/18 11:18 78 11/12/18 11:00 96 17 113/67 (82) 91 Mechanical Ventilator 60.00 11/12/18 10:46 92 11/12/18 10:45 93 11/12/18 10:00 102 15 117/68 (84) 94 Mechanical Ventilator 60.00 11/12/18 09:25 102 16 99 75 11/12/18 09:22 104 11/12/18 07:59 98.4 88 20 141/73 (95) 98 Room Air I & O 11/13/18 07:00 Intake Total 104 ml Output Total 1025 ml Balance -921 ml Height & Weight Height: 5'8.00" Weight: 273lbs. 7.0oz. 124.859176we; 41.6 BMI Method:Stated General Appearance: No Apparent Distress, Obese, Other (pt is sedated on vent) HEENT: PERRL/EOMI, Normal ENT Inspection, Pharynx Normal Neck: Full Range of Motion, Non Tender, Supple Respiratory: No Accessory Muscle Use, No Respiratory Distress, Decreased Breath Sounds Cardiovascular: Regular Rate, Rhythm, No Murmur Results Lab Laboratory Tests 3/6/19 10:10 11/13/18 03:45 Assessment/Plan Assessment/Plan Acute respiratory failure s/p bronchoscopy with EBUS -Will attempt extubation today -ABG, CXR - CXR reviewed -SVNS duoneb Q 4 -Check influ and MRSA swabs -Sputum culture pending Leukocytosis - R/o infection reactive doubt infection -Will start Cefepime for now -Pt's previous MRSA swabs have been negative will repeat Hypotension - probably secondary to Diprivan -IVF Hyponatremia -Monitor CHF EF 25%, CAD -Consult Cardiology OLGA REBOLLAR DO Nov 13, 2018 05:31
--- NOTE | 2018-11-13 05:57 | NUR ---
pt to be extubated this am per dr. romero. all sedation stopped at 0530, this RN and RT [place] [id number] Addendum: 11/13/18 at 0605 by ANKUR GUTIÉRREZ RN and following commands at 0547. pt extubated at that time
[2018-11-13] MEDS ORDERED: MAGNESIUM 1 GM/100 ML IVPB 100 ML IV SCH (06:00)
[2018-11-13] MEDS ORDERED: KCL 20 MEQ TAB (K-DUR) PO SCH (06:00)
[2018-11-13] MEDS ORDERED: POTASSIUM CL 10MEQ/50ML IVPB 50 ML IV SCH (06:00)
--- NOTE | 2018-11-13 07:40 | Progress Note (SOAP) ---
Subjective Time Seen by a Provider: 07:34 Subjective/Events-last exam Patient off vent today. Patient on BiPAP. Patient communicating well Objective Exam Vital Signs Date Time Temp Pulse Resp B/P (MAP) Pulse Ox O2 Delivery O2 Flow Rate FiO2 11/13/18 07:14 75 31 100 40.00 11/13/18 04:20 84 28 99 25 11/13/18 04:13 157/94 11/13/18 04:00 98 Mechanical Ventilator 25 11/13/18 04:00 84 28 154/94 (114) 98 Mechanical Ventilator 25.00 11/13/18 03:00 85 26 152/91 (111) 99 Mechanical Ventilator 25.00 11/13/18 02:37 84 25 98 25 11/13/18 02:00 84 24 155/92 (113) 98 Mechanical Ventilator 25.00 11/13/18 01:29 151/93 11/13/18 01:00 85 22 154/94 (114) 98 Mechanical Ventilator 25.00 11/13/18 01:00 85 11/13/18 00:15 85 25 99 25 11/13/18 00:00 98 Mechanical Ventilator 25 11/13/18 00:00 86 23 154/95 (114) 98 Mechanical Ventilator 25.00 11/12/18 23:00 83 27 150/90 (110) 98 Mechanical Ventilator 25.00 11/12/18 22:42 155/94 11/12/18 22:42 75 27 98 30 11/12/18 22:00 76 23 154/95 (114) 98 Mechanical Ventilator 25.00 11/12/18 21:00 77 21 152/97 (115) 98 Mechanical Ventilator 25.00 11/12/18 20:05 79 22 99 Mechanical Ventilator 25.00 11/12/18 20:05 79 24 99 30 11/12/18 20:00 99 Mechanical Ventilator 40 11/12/18 20:00 79 19 153/95 (114) 99 Mechanical Ventilator 30.00 11/12/18 19:40 80 11/12/18 19:00 81 23 145/95 (112) 99 Mechanical Ventilator 30.00 11/12/18 19:00 81 11/12/18 18:18 74 20 98 30 11/12/18 18:00 74 19 132/86 (101) 97 Mechanical Ventilator 40.00 11/12/18 17:16 71 22 100 40 11/12/18 17:09 71 11/12/18 17:00 74 20 127/82 (97) 97 Mechanical Ventilator 30.00 11/12/18 16:00 98.8 11/12/18 16:00 100 Mechanical Ventilator 40 11/12/18 16:00 68 20 113/78 (90) 100 Mechanical Ventilator 40.00 11/12/18 15:58 Mechanical Ventilator 40.00 11/12/18 15:22 62 20 100 45 11/12/18 15:00 62 19 97/64 (75) 99 Mechanical Ventilator 45.00 11/12/18 14:21 63 11/12/18 14:00 66 26 101/72 (82) 97 Mechanical Ventilator 45.00 11/12/18 13:28 63 20 99 60 11/12/18 13:08 100 Mechanical Ventilator 60 11/12/18 13:00 64 20 97/64 (75) 100 Mechanical Ventilator 60.00 11/12/18 13:00 64 11/12/18 12:00 98.8 62 10 80/37 (51) 100 Mechanical Ventilator 60.00 11/12/18 11:18 78 11/12/18 11:00 96 17 113/67 (82) 91 Mechanical Ventilator 60.00 11/12/18 10:46 92 11/12/18 10:45 93 11/12/18 10:00 102 15 117/68 (84) 94 Mechanical Ventilator 60.00 11/12/18 09:25 102 16 99 75 11/12/18 09:22 104 11/12/18 07:59 98.4 88 20 141/73 (95) 98 Room Air I & O 11/13/18 07:00 Intake Total 104 ml Output Total 1025 ml Balance -921 ml Capillary Refill : General Appearance: No Apparent Distress, WD/WN HEENT: Normal ENT Inspection Neck: Full Range of Motion, Normal Inspection Respiratory: No Accessory Muscle Use, No Respiratory Distress, Decreased Breath Sounds Cardiovascular: Regular Rate, Rhythm, No Murmur Gastrointestinal: non tender, soft Results Lab Laboratory Tests 11/12/18 08:30: Body Fluid Source BRONCH LAVAGE, Body Fluid Color COLORLESS, Body Fluid Appearance SLT CLDY, Body Fluid Polynuclear WBCs , Body Fluid Mononuclear WBCs , Body Fluid Lymphocytes , Body Fluid Other Cells 100 11/12/18 10:10: White Blood Count 14.3H, Red Blood Count 4.31L, Hemoglobin 13.3, Hematocrit 41, Mean Corpuscular Volume 96, Mean Corpuscular Hemoglobin 31, Mean Corpuscular Hemoglobin Concent 32, Red Cell Distribution Width 13.7, Platelet Count 210, Mean Platelet Volume 10.4, Sodium Level 134L, Potassium Level 4.6, Chloride Level 104, Carbon Dioxide Level 24, Anion Gap 6, Blood Urea Nitrogen 15, Creatinine 0.94, Estimat Glomerular Filtration Rate > 60, BUN/Creatinine Ratio 16, Glucose Level 140H, Calcium Level 8.4L, Corrected Calcium 8.6, Phosphorus Level 5.8H, Magnesium Level 2.3, Total Bilirubin 0.4, Aspartate Amino Transf ( AST/SGOT) 149H, Alanine Aminotransferase (ALT/SGPT) 103H, Alkaline Phosphatase 54, B-Type Natriuretic Peptide 77.8, Total Protein 6.2L, Albumin 3.7, Triglycerides Level 261H 11/13/18 00:24: Glucometer 171H 11/13/18 03:40: Blood Gas Puncture Site RIGHT RADIAL, Blood Gas Patient Temperature 100.6, Arterial Blood pH 7.40, Arterial Blood Partial Pressure CO2 38, Arterial Blood Partial Pressure O2 84, Arterial Blood HCO3 23, Arterial Blood Total CO2 23.8, Arterial Blood Oxygen Saturation 96, Arterial Blood Base Excess -1.2, Denny Test POSITIVE, Blood Gas Ventilator Setting YES, Blood Gas Inspired Oxygen 25% 11/13/18 03:45: White Blood Count 15.5H, Red Blood Count 4.28L, Hemoglobin 13.4, Hematocrit 40, Mean Corpuscular Volume 93, Mean Corpuscular Hemoglobin 31, Mean Corpuscular Hemoglobin Concent 34, Red Cell Distribution Width 13.8, Platelet Count 176, Mean Platelet Volume 10.8H, Neutrophils (%) (Auto) 84H, Lymphocytes (%) (Auto) 9L, Monocytes (%) (Auto) 7, Eosinophils (%) (Auto) 0, Basophils (%) (Auto) 0, Neutrophils # (Auto) 13.1H, Lymphocytes # (Auto) 1.4, Monocytes # (Auto) 1.0, Eosinophils # (Auto) 0.0, Basophils # (Auto) 0.0, Neutrophils % (Manual) 81, Lymphocytes % (Manual) 11, Monocytes % (Manual) 8, Sodium Level 137, Potassium Level 4.8, Chloride Level 106, Carbon Dioxide Level 18L, Anion Gap 13, Blood Urea Nitrogen 21H, Creatinine 1.14, Estimat Glomerular Filtration Rate > 60, BUN /Creatinine Ratio 18, Glucose Level 173H, Calcium Level 7.7L, Corrected Calcium 7.9L, Phosphorus Level 3.5, Magnesium Level 2.1, Total Bilirubin 0.4, Aspartate Amino Transf (AST/SGOT) 111H, Alanine Aminotransferase (ALT/SGPT) 88H, Alkaline Phosphatase 51, B-Type Natriuretic Peptide 107.1H, Total Protein 6.2L, Albumin 3.7 Assessment/Plan Assessment/Plan Assess & Plan/Chief Complaint Acute respiratory failure post bronchoscopy. Leukocytosis. COPD. Tobaccoism. Hyponatremia. Patient on BiPAP now Clinical Quality Measures Admission Status Admission Dx Intubated and on ventilator post bronchoscopy. COPD. CAD. Hypotension. Tobaccoism. Asthma. DVT/VTE Risk/Contraindication: Risk Factor Score Per Nursin RFS Level Per Nursing on Admit: 4+=Very High Contraindications-Pharm: Other *list below* LAZARO CARREON DO Nov 13, 2018 07:40
--- NOTE | 2018-11-13 07:49 | Anesthesia-General Post-Op ---
General Patient Condition Mental Status/LOC: Same as Preop Cardiovascular: Satisfactory Nausea/Vomiting: Absent Respiratory: Satisfactory Pain: Controlled Complications: Absent Post Op Complications Complications None Follow Up Care/Instructions Patient Instructions None needed. Anesthesia/Patient Condition Patient Condition Patient is doing well, no complaints, stable vital signs, no apparent adverse anesthesia problems. No complications reported per nursing. SAHARA MARKS CRNA Nov 13, 2018 07:49
[2018-11-13] MEDS ORDERED: FUROSEMIDE 40 MG/4 ML INJ (LASIX) ONE (08:48)
--- NOTE | 2018-11-13 08:58 | NUR ---
fentanyl drip wasted with Dorina SMITH. total of 180 ML wasted
[2018-11-13] MEDS: CEFEPIME INJECTION 2,000 MG in WATER (STERILE) FOR INJECTION 20 ML IV SCH ×2 (09:06→20:17)
[2018-11-13] MEDS: PANTOPRAZOLE 40 MG (PROTONIX) VIAL IV SCH (09:06)
--- NOTE | 2018-11-13 09:25 | Progress Note-Cardiology ---
Cardiology SOAP Progress Note Subjective: Extubated. Denies any c/o CP or SOB. Multiple family at the bedside. Wants to go home. Objective: I&O/Vital Signs 11/13/18 11/13/18 11/13/18 11/13/18 04:00 04:00 04:00 04:13 Temp 99.0 Pulse 84 Resp 28 B/P (MAP) 154/94 (114) 157/94 Pulse Ox 98 98 O2 Delivery Mechanical Ventilator Mechanical Ventilator O2 Flow Rate 25.00 FiO2 25 11/13/18 11/13/18 11/13/18 11/13/18 04:20 05:00 06:00 07:00 Pulse 84 83 86 79 Resp 28 30 37 34 B/P (MAP) 150/92 (111) 155/93 (113) 151/93 (112) Pulse Ox 99 98 98 100 O2 Delivery Mechanical Ventilator Nasal Cannula Nasal Cannula O2 Flow Rate 25.00 5.00 5.00 FiO2 25 11/13/18 11/13/18 11/13/18 11/13/18 07:04 07:14 08:00 08:00 Pulse 78 75 80 Resp 31 32 B/P (MAP) 140/98 (112) Pulse Ox 100 100 98 O2 Delivery Nasal Cannula Nasal Cannula O2 Flow Rate 40.00 5.00 3.00 11/13/18 11/13/18 11/13/18 11/13/18 09:00 10:00 10:43 11:00 Pulse 80 75 76 Resp 26 32 29 B/P (MAP) 137/80 (99) 112/79 (90) 124/72 (89) Pulse Ox 98 96 94 95 O2 Delivery Nasal Cannula Nasal Cannula Room Air Nasal Cannula O2 Flow Rate 5.00 5.00 5.00 11/13/18 11/13/18 11/13/18 11/13/18 11:45 12:00 13:00 13:02 Pulse 75 70 74 Resp 29 30 B/P (MAP) 136/72 (93) 113/67 (82) Pulse Ox 95 97 91 O2 Delivery Room Air Nasal Cannula Nasal Cannula O2 Flow Rate 5.00 5.00 11/13/18 11/13/18 14:00 14:32 Pulse 70 Resp 13 B/P (MAP) 114/95 (101) Pulse Ox 93 93 O2 Delivery Nasal Cannula Room Air O2 Flow Rate 5.00 11/13/18 00:00 Intake Total 52 ml Output Total 800 ml Balance -748 ml Weight (Pounds): 273 Weight (Ounces): 7.0 Weight (Calculated Kilograms): 124.441579 Constitutional: appears stated age; No apparent distress; well-developed, well- nourished Respiratory: rhonchi (scattered), wheezing Cardiovascular: regular rate-rhythm; No JVD; S1 and S2, systolic murmur Gastrointestional: soft, round, audible bowel sounds Extremities: no lower extremity edema bilateral Neurologic/Psychiatric: other (sedated; moves extermities) Skin: No rash, No ulcerations Results/Procedures: Labs Laboratory Tests 11/13/18 00:24: Glucometer 171H 11/13/18 03:40: Blood Gas Puncture Site RIGHT RADIAL, Blood Gas Patient Temperature 100.6, Arterial Blood pH 7.40, Arterial Blood Partial Pressure CO2 38, Arterial Blood Partial Pressure O2 84, Arterial Blood HCO3 23, Arterial Blood Total CO2 23.8, Arterial Blood Oxygen Saturation 96, Arterial Blood Base Excess -1.2, Denny Test POSITIVE, Blood Gas Ventilator Setting YES, Blood Gas Inspired Oxygen 25% 11/13/18 03:45: White Blood Count 15.5H, Red Blood Count 4.28L, Hemoglobin 13.4, Hematocrit 40, Mean Corpuscular Volume 93, Mean Corpuscular Hemoglobin 31, Mean Corpuscular Hemoglobin Concent 34, Red Cell Distribution Width 13.8, Platelet Count 176, Mean Platelet Volume 10.8H, Neutrophils (%) (Auto) 84H, Lymphocytes (%) (Auto) 9L, Monocytes (%) (Auto) 7, Eosinophils (%) (Auto) 0, Basophils (%) (Auto) 0, Neutrophils # (Auto) 13.1H, Lymphocytes # (Auto) 1.4, Monocytes # (Auto) 1.0, Eosinophils # (Auto) 0.0, Basophils # (Auto) 0.0, Neutrophils % (Manual) 81, Lymphocytes % (Manual) 11, Monocytes % (Manual) 8, Sodium Level 137, Potassium Level 4.8, Chloride Level 106, Carbon Dioxide Level 18L, Anion Gap 13, Blood Urea Nitrogen 21H, Creatinine 1.14, Estimat Glomerular Filtration Rate > 60, BUN /Creatinine Ratio 18, Glucose Level 173H, Calcium Level 7.7L, Corrected Calcium 7.9L, Phosphorus Level 3.5, Magnesium Level 2.1, Total Bilirubin 0.4, Aspartate Amino Transf (AST/SGOT) 111H, Alanine Aminotransferase (ALT/SGPT) 88H, Alkaline Phosphatase 51, B-Type Natriuretic Peptide 107.1H, Total Protein 6.2L, Albumin 3.7 Microbiology 11/12/18 Gram Stain - Final, Resulted 11/12/18 Bronchial Culture - Preliminary, Resulted Usual upper respiratory glynn 11/12/18 Fungal Culture 1, Resulted Pending A/P: Assessment: Ac on chronic resp failure - intubated on the vent post bronchoscopy, now off vent - management per pulmonary services Acute on Chronic systolic CHF - diuretics Ischemic cardiomyopathy. Echo of 10/21/18: LVEF 25-30%, anteroseptal and apical akinesis, biatrial enlargement, PASP 25 mmHg COPD CAD. Cardiac cath of December 10, 2017: Coronary artery disease is consisting of 80 % proximal stenosis of the left anterior descending artery and mid vessel occlusion of the left anterior descending artery. The distal left anterior descending artery is protected by a patent left internal mammary artery graft to the distal left anterior descending artery. A ramus intermedius artery is known to have overlapping stents (Promus 2.5 x 38 and 2.5 x 12) that were exhibiting up to 90% stenosis. The ostial ramus intermedius had 95% stenosis. The left circumflex artery is known to have a 4.0 x 24 mm stent, which was exhibiting 70% stenosis. To these stenoses in the ramus intermedius and in the left circumflex, kissing balloon angioplasty was carried out, which reduced the stenosis to approximately 30%. The distal ramus intermedius artery has 70% stenosis where the vessel is of a small caliber and not amenable to intervention. The right coronary artery is a small, nondominant and has diffuse moderately severe disease. Moderately elevated left ventricular end- diastolic pressure. Anterolateral and apical hypokinesis. Mild impairment of global left ventricular systolic function with ejection fraction 45% to 50%. Abnormal ECG: ECG of 12/10/16 showed NSR with repol abn in anterolat leads, essentially unchanged on 12/04/17 Status post defibrillator placement [place] [address] Reynaga at [facility]. Device was replaced on 07/26/15 after it had reached RODRIGUEZ. It is fucntioning normally on interrogation of Aug 2018 Reactive airway disease. Chronic tobaccoism - cessation advised Chronic joint and back discomfort. Sleep apnea for which he's on CPAP therapy. History of mild intermittent liver enzyme elevation, likely related to alcohol use, followed by Dr Ryan H/o noncompliance with medications. Hyperlipidemia - PCP managing Mild carotid arterial disease on carotid u/s of 09/07/16 Plan: Extubated today - management per Dr. Chaudhari of pulmonary services BP improved - restart BB, diuretics, ARB, ASA and Plavix Acute on chronic systolic CHF - IV Lasix given Monitor lab Physician Assessment Physician Assessment Shortness of breath, but not different from chronic baseline No cp or palp or syncope Lungs: fair bilat air entry, diminished at the bases, exp wheezes Cor: reg Ext: no c/c/e A&R * As documented in our note above that I updated (italics) and as noted below * I had a long and detailed discussion with him and his and his family * Advised compliance with card meds * Advised outpt f/u JOS DIAS [employer]PERATIONS DIRECTOR Nov 13, 2018 09:25 ALFREDO WANG MD [facility] Nov 13, 2018 15:39
[2018-11-13] MEDS ORDERED: meTOproloL SUCCINATE 50 MG (TOPROL XL) TAB PO NR (09:45)
[2018-11-13] MEDS ORDERED: ASPIRIN 81 MG CHEW (CHILDREN'S ASA) PO NR (09:45)
[2018-11-13] MEDS ORDERED: VALSARTAN 80 MG (DIOVAN) TAB PO NR (09:45)
[2018-11-13] MEDS ORDERED: SPIRONOLACTONE 25 MG (ALDACTONE) TAB PO NR (09:45)
--- NOTE | 2018-11-13 11:13 | Diagnostic Imaging Report ---
INDICATION: Hemoptysis and asthma. Comparison made with prior examination from 11/12/2018. FINDINGS: There is cardiomegaly and minimal venous congestion. There has been improved aeration of the right lung. There is no pleural effusion or pneumothorax. ET and NG tubes are in satisfactory position. Pacemaker overlies the left hemithorax. There has been a previous median sternotomy. IMPRESSION: Interval improved aeration of the right lung. Cardiomegaly and mild central pulmonary venous congestion. Dictated by: Dictated on workstation # [id number]
--- NOTE | 2018-11-13 12:30 | NUR ---
Pt complains of numbness on his right toes and foot. Pulses felt and heard with doppler. Stroke scaled done to due to overall weakness and pt scored a 0. Dr. Chaudhari notified of pt complaint and Dr. Chaudhari stated that he would come see pt in a bit.
[2018-11-13] MEDS ORDERED: NS 100 ML (IVPB) BAG IV ONE (15:45)
[2018-11-13] MEDS ORDERED: IOHEXOL 350 MG/ML 100 ML (OMNIPAQUE 350) VIAL IV ONE (15:45)
[2018-11-13] MEDS ORDERED: RECEIVED CONTRAST 20 ML VIAL IV SCH (15:45)
[2018-11-13] MEDS: HYDROcodone/APAP 7.5 MG/325 MG (LORTAB, LORCET PLUS) TABLET PO PRN ×2 (16:05→20:17)
--- NOTE | 2018-11-13 16:47 | Diagnostic Imaging Report ---
CLINICAL INDICATION: Patient with right leg numbness that started today. EXAMS: 1: Head CT with and without IV contrast. 2: CT angiogram of the head and neck performed with 100 cc of Omnipaque 350 IV contrast. Sagittal and coronal MIP reformations were created for better visualization of vascular anatomy. COMPARISON: Head CT without contrast dated 03/30/2010. FINDINGS: Head CT: There is no evidence of acute cerebral infarct, intracranial hemorrhage, or gross mass effect. The brain parenchymal volume appears appropriate for patient's age. There is normal isabel-white matter distinction. There is no significant midline shift or herniation. There is no evidence of hydrocephalus. The basal cisterns are unremarkable. The skull, extracranial soft tissue, and orbits are unremarkable. The paranasal sinuses are unremarkable. Temporal bones show no significant abnormality. CT angiogram: There is dense contrast bolus seen within the right subclavian vein and superior vena cava and also cardiac pacemaker wire overlying the mediastinal region. This structure and contrast cause streak artifact obscuring the aortic arch, proximal great vessels limiting evaluation. Patient body habitus also causes streak artifact limiting evaluation. Three-vessel aortic arch is seen. There is atherosclerotic disease near the origin of the left subclavian artery. There is some degree of narrowing, but it is obscured by streak artifact. No significant contrast opacification within the distal left subclavian artery suspected to be due to artifact. The origin of the brachiocephalic artery is obscured and noninterpretable. There is significant streak artifact obscuring the rest of the brachiocephalic artery and distal and mid right subclavian artery. Visualized portions of the right subclavian artery and brachiocephalic artery show no major abnormality, but it is also not as well visualized. The origin and proximal portions of the bilateral CCA are greatly obscured and noninterpretable. The mid bilateral CCA are patent and are noted to deviate medially. There is atherosclerotic disease involving the distal right CCA and right ICA bulb. There appears to be roughly [id number] narrowing of the right ICA bulb which is partially obscured. The remainder of the cervical right ICA is patent as visualized. There is atherosclerotic disease of the distal left CCA. There is atherosclerotic disease involving the left ICA bulb. There is limited contrast within the vessel and there is [id number] narrowing, as visualized. The remainder of the cervical left ICA is unremarkable. There is atherosclerotic disease involving the left ECA region which appears to have at least moderate stenosis. There is no significant stenosis of the right ECA. There is dental streak artifact greatly obscuring the portion of the neck at the C1-C2 vertebral body level. Grossly codominant cervical vertebral arteries are seen. There is very limited contrast opacification visualized within the bilateral cervical vertebral arteries which may just be due to artifact. The bilateral cervical vertebral arteries are greatly obscured and unable to exclude any abnormalities due to the significant artifact. The intradural vertebral arteries are seen and patent. Basilar artery, bilateral SCA, and bilateral clinical trainer show no significant abnormality. There is atherosclerotic disease of the bilateral cavernous carotid arteries. There is limited visible contrast opacification within the cavernous carotid arteries. This could be from artifact. There is concern for an area of severe stenosis involving the right cavernous carotid artery just prior to the ophthalmic portion. The remainder of the intracranial right ICA is patent. There is also very limited visualization of the cavernous carotid artery, left ICA and petrous portion. There is concern for severe stenosis near the ophthalmic portion. The remainder of the intracranial left ICA is patent. There is limited contrast opacification of the bilateral MCAs. There is no gross vascular occlusion seen, but areas of stenosis cannot be completely excluded. The bilateral A1 ACAs and A2 ACAs and distal branches are patent as visualized. The dural venous sinuses are patent. There is no significant neck soft tissue abnormality. There is mild dependent atelectasis involving the posterior aspects of both lungs. There is mild cervical spine degenerative disease. IMPRESSION: 1: Unremarkable CT scan of the brain with no evidence of acute intracranial process. 2: Very limited CT angiogram of the [place] and neck due to patient body habitus, dense contrast bolus, dental hardware artifact, and artifact from the cardiac pacemaker wires. This is described in detail above. The cervical vertebral arteries are not well visualized and are predominantly uninterpretable in the region of the neck. There is irregular-appearing contrast seen within them suggesting some degree of patency. 3: There is greatly limited visualization of the bilateral cavernous carotid arteries with concern for some areas of severe stenosis bilaterally. 4: There is no major large vascular occlusion seen, but areas of stenosis may be missed. 5: There is concern for at least [id number] stenosis of the bilateral cervical ICA bulbs. 6: There is concern for moderate stenosis of the left ECA. Results of this report were discussed with Dr. Remington Chaudhari via the telephone on 11/13/2018 at 1610 hours. Dictated by: Dictated on workstation # [id number]
--- NOTE | 2018-11-13 16:47 | Diagnostic Imaging Report ---
PROCEDURE: CT lumbar spine without contrast. TECHNIQUE: Multiple contiguous axial images were obtained through the lumbar spine without the use of intravenous contrast. Sagittal and coronal reformations were then performed. INDICATION: Right leg numbness and low back pain. COMPARISON: No prior studies are available for comparison. FINDINGS: There is normal lumbar lordotic curvature. The vertebral body heights are maintained. No acute compression fracture seen. There is degenerative disc disease at the L5-S1 level with disc space narrowing, vacuum disc phenomena and marginal osteophyte formation. This does result in moderate bilateral neural foraminal stenosis. All other levels are unremarkable. Aorta is calcified but nonaneurysmal. Paraspinous tissues are unremarkable. IMPRESSION: L5-S1 degenerative disc disease with bilateral neural foraminal stenosis. No acute bony abnormality is detected. Dictated by: Dictated on workstation # [id number]
--- NOTE | 2018-11-13 18:26 | NUR ---
Patient transferred to [facility] per W/C accompanied by GROUND [employer]ENCE OFFICER GEOFFREY. Patient and family notified and understand transfer. Personal belongings with patient. Report given to THIS RN FROM GEOFFREY . NOTE THAT PT VOICED HE IS STILL HAVING THE NUMBNESS TO THE R FT GROUND DEFENCE OFFICER GEOFFREY REPORTED TO THIS RN --
[2018-11-13] MEDS ORDERED: CEFEPIME 2 GM (MAXIPIME) VIAL ONE (20:11)
[2018-11-13] MEDS ORDERED: WATER (STERILE) FOR INJECTION 20 ML ONE (20:11)
[2018-11-14 00:23] VITALS: BP 106/59
[2018-11-14] MEDS: HYDROcodone/APAP 7.5 MG/325 MG (LORTAB, LORCET PLUS) TABLET PO PRN ×4 (01:29→22:18)
[2018-11-14] MEDS: RT-ALBUTEROL/IPRATROPIUM 3 ML (DUONEB) VIAL INH SCH ×6 (02:17→21:51)
[2018-11-14 04:01] VITALS: BP 102/59
[2018-11-14 04:28] LABS: BASOPHILS % (AUTO) 0 % (0-10); EOSINOPHILS # (AUTO) 0.4 10^3/uL (0.0-0.3); EOSINOPHILS % (AUTO) 3 % (0-10); HEMATOCRIT 37 % (40-54); HEMOGLOBIN 12.3 G/DL (13.3-17.7); LYMPHOCYTES # (AUTO) 2.1 X 10^3 (1.0-4.0); LYMPHOCYTES % (AUTO) 15 % (12-44); MEAN CORPUSCULAR HEMOGLOBIN 31 PG (25-34); MEAN CORPUSCULAR HGB CONC 33 G/DL (32-36); MEAN CORPUSCULAR VOLUME 94 FL (80-99); MEAN PLATELET VOLUME 10.8 FL (7.4-10.4); MONOCYTES # (AUTO) 1.1 X 10^3 (0.0-1.0); MONOCYTES % (AUTO) 8 % (0-12); NEUTROPHILS # (AUTO) 10.3 X 10^3 (1.8-7.8); NEUTROPHILS % (AUTO) 74 % (42-75); PLATELET COUNT 117 10^3/uL (130-400); RED CELL DISTRIBUTION WIDTH 13.6 % (10.0-14.5); WHITE BLOOD COUNT 13.8 10^3/uL (4.3-11.0)
[2018-11-14 05:01] LABS: BUN/CREATININE RATIO 29; CALCIUM 8.1 MG/DL (8.5-10.1); CARBON DIOXIDE 20 MMOL/L (21-32); CHLORIDE 104 MMOL/L (98-107); CREATININE SERUM 0.86 MG/DL (0.60-1.30); GFR ESTIMATED > 60; GLUCOSE 97 MG/DL (70-105); MAGNESIUM 2.6 MG/DL (1.8-2.4); PHOSPHORUS 3.7 MG/DL (2.3-4.7); POTASSIUM 3.9 MMOL/L (3.6-5.0); SODIUM 135 MMOL/L (135-145)
--- NOTE | 2018-11-14 05:44 | Pulmonary Progress Note ---
Subjective Time Seen by a Provider: 05:45 Subjective/Events-last exam PT still complains of RLE pain and numbness. Sepsis Event Evaluation Height, Weight, BMI Height: 5'8.00" Weight: 273lbs. 7.0oz. 124.647486ex; 41.6 BMI Method:Stated Exam Exam Vital Signs Date Time Temp Pulse Resp B/P (MAP) Pulse Ox O2 Delivery O2 Flow Rate FiO2 11/14/18 04:01 98.2 67 20 102/59 (73) 94 Nasal Cannula 1.00 11/14/18 04:00 Room Air 25 11/14/18 02:18 94 Nasal Cannula 2.00 11/14/18 00:23 98.3 73 21 106/59 (75) 92 Nasal Cannula 1.00 11/14/18 00:00 Room Air 25 11/13/18 22:43 93 Nasal Cannula 2.00 11/13/18 20:00 Room Air 25 11/13/18 19:39 98.3 64 20 92/62 (72) 97 Nasal Cannula 1.00 11/13/18 18:30 97.6 66 20 90/51 (64) 96 Nasal Cannula 1.00 11/13/18 18:26 95 Room Air 11/13/18 18:00 69 33 95 Nasal Cannula 1.00 11/13/18 17:30 93 Nasal Cannula 1.00 11/13/18 17:00 69 13 120/70 (87) 89 Room Air 11/13/18 15:51 95 Room Air 11/13/18 15:00 131/83 (99) Room Air 11/13/18 14:32 93 Room Air 11/13/18 14:00 70 13 114/95 (101) 93 Nasal Cannula 5.00 11/13/18 13:02 74 11/13/18 13:00 70 30 113/67 (82) 91 Nasal Cannula 5.00 11/13/18 12:00 75 29 136/72 (93) 97 Nasal Cannula 5.00 11/13/18 11:45 95 Room Air 11/13/18 11:00 76 29 124/72 (89) 95 Nasal Cannula 5.00 11/13/18 10:43 94 Room Air 11/13/18 10:00 75 32 112/79 (90) 96 Nasal Cannula 5.00 11/13/18 09:00 80 26 137/80 (99) 98 Nasal Cannula 5.00 11/13/18 08:00 98 Nasal Cannula 3.00 11/13/18 08:00 80 32 140/98 (112) 100 Nasal Cannula 5.00 11/13/18 07:14 75 31 100 40.00 11/13/18 07:04 78 11/13/18 07:00 79 34 151/93 (112) 100 Nasal Cannula 5.00 11/13/18 06:00 86 37 155/93 (113) 98 Nasal Cannula 5.00 I & O 11/14/18 06:59 Intake Total 2100 ml Output Total 5350 ml Balance -3250 ml Height & Weight Height: 5'8.00" Weight: 273lbs. 7.0oz. 124.032700dv; 41.6 BMI Method:Stated General Appearance: No Apparent Distress, WD/WN HEENT: Normal ENT Inspection Neck: Full Range of Motion, Normal Inspection Respiratory: No Accessory Muscle Use, No Respiratory Distress, Decreased Breath Sounds Cardiovascular: Regular Rate, Rhythm, No Murmur Capillary Refill: Less Than 3 Seconds Gastrointestinal: non tender, soft Results Lab Laboratory Tests 11/12/18 10:10 11/13/18 03:45 11/14/18 04:20 Assessment/Plan Assessment/Plan S/p Acute respiratory failure s/p bronchoscopy with EBUS -PT is doing well of ventilator -SVNS duoneb Q 4 Leukocytosis - R/o infection reactive doubt infection -Cefepime Right foot/lower right leg numbness - most likely neuropathic -Check bilateral LE venous and arterial dopplers. -Head CT no acute change -Lumbar spine CT shows stenosis CHF EF 25%, CAD -Consult Cardiology OLGA REBOLLAR DO Nov 14, 2018 05:44
--- NOTE | 2018-11-14 06:00 | NUR ---
Patient concerned that right foot is becoming discolored. Right foot felt cold and unable to palpate pulse. Able to locate pulse with doppler. Dr. Chaudhari aware and orders received.
[2018-11-14 08:00] VITALS: BP 114/56
--- NOTE | 2018-11-14 08:07 | Diagnostic Imaging Report ---
INDICATION: Dyspnea. Upright portable AP view of the chest is obtained. FINDINGS: Since the study one day earlier, there is continued cardiomegaly. Endotracheal tube and nasogastric tube have been discontinued without evidence of pneumothorax. There is mild increase in airspace disease in the right lower lobe. IMPRESSION: Increased edema or possible developing pneumonia in the right lower lobe. Clinical correlation and radiographic followup would be of use. Dictated by: Dictated on workstation # [id number]
--- NOTE | 2018-11-14 08:18 | Progress Note (SOAP) ---
Subjective Time Seen by a Provider: 08:12 Subjective/Events-last exam Patient complaining of pain in the right hip. Pain scale at 1 out of 10 is 11. Patient feels that his right foot is numb. Procedures done today to have Objective Exam Vital Signs Date Time Temp Pulse Resp B/P (MAP) Pulse Ox O2 Delivery O2 Flow Rate FiO2 11/14/18 07:14 92 Nasal Cannula 2.00 11/14/18 04:01 98.2 67 20 102/59 (73) 94 Nasal Cannula 1.00 11/14/18 04:00 Room Air 25 11/14/18 02:18 94 Nasal Cannula 2.00 11/14/18 00:23 98.3 73 21 106/59 (75) 92 Nasal Cannula 1.00 11/14/18 00:00 Room Air 25 11/13/18 22:43 93 Nasal Cannula 2.00 11/13/18 20:00 Room Air 25 11/13/18 19:39 98.3 64 20 92/62 (72) 97 Nasal Cannula 1.00 11/13/18 18:30 97.6 66 20 90/51 (64) 96 Nasal Cannula 1.00 11/13/18 18:26 95 Room Air 11/13/18 18:00 69 33 95 Nasal Cannula 1.00 11/13/18 17:30 93 Nasal Cannula 1.00 11/13/18 17:00 69 13 120/70 (87) 89 Room Air 11/13/18 15:51 95 Room Air 11/13/18 15:00 131/83 (99) Room Air 11/13/18 14:32 93 Room Air 11/13/18 14:00 70 13 114/95 (101) 93 Nasal Cannula 5.00 11/13/18 13:02 74 11/13/18 13:00 70 30 113/67 (82) 91 Nasal Cannula 5.00 11/13/18 12:00 75 29 136/72 (93) 97 Nasal Cannula 5.00 11/13/18 11:45 95 Room Air 11/13/18 11:00 76 29 124/72 (89) 95 Nasal Cannula 5.00 11/13/18 10:43 94 Room Air 11/13/18 10:00 75 32 112/79 (90) 96 Nasal Cannula 5.00 11/13/18 09:00 80 26 137/80 (99) 98 Nasal Cannula 5.00 I & O 11/14/18 07:00 Intake Total 2700 ml Output Total 5550 ml Balance -2850 ml Capillary Refill : Less Than 3 Seconds General Appearance: No Apparent Distress, WD/WN HEENT: Normal ENT Inspection Neck: Normal Inspection, Non Tender Respiratory: No Accessory Muscle Use, No Respiratory Distress, Decreased Breath Sounds Cardiovascular: Regular Rate, Rhythm, No Murmur Extremity: Other (Right hip pain, numbness right foot) Results Lab Laboratory Tests 11/14/18 04:20 Laboratory Tests 11/14/18 04:20: White Blood Count 13.8H, Red Blood Count 3.96L, Hemoglobin 12.3L, Hematocrit 37L , Mean Corpuscular Volume 94, Mean Corpuscular Hemoglobin 31, Mean Corpuscular Hemoglobin Concent 33, Red Cell Distribution Width 13.6, Platelet Count 117L, Mean Platelet Volume 10.8H, Neutrophils (%) (Auto) 74, Lymphocytes (%) (Auto) 15 , Monocytes (%) (Auto) 8, Eosinophils (%) (Auto) 3, Basophils (%) (Auto) 0, Neutrophils # (Auto) 10.3H, Lymphocytes # (Auto) 2.1, Monocytes # (Auto) 1.1H, Eosinophils # (Auto) 0.4H, Basophils # (Auto) 0.0, Sodium Level 135, Potassium Level 3.9, Chloride Level 104, Carbon Dioxide Level 20L, Anion Gap 11, Blood Urea Nitrogen 25H, Creatinine 0.86, Estimat Glomerular Filtration Rate > 60, BUN /Creatinine Ratio 29, Glucose Level 97, Calcium Level 8.1L, Phosphorus Level 3.7 , Magnesium Level 2.6H Microbiology 11/12/18 Gram Stain - Final, Resulted 11/12/18 Bronchial Culture - Preliminary, Resulted Usual upper respiratory glynn 11/12/18 Fungal Culture 1 - Preliminary, Resulted Culture In Progress Assessment/Plan Assessment/Plan Assess & Plan/Chief Complaint Acute respiratory failure post bronchoscopy. Leukocytosis. COPD. Tobaccoism. Hyponatremia. Patient on BiPAP now. . 11/14/18. Acute respiratory failure resolved. COPD. Tobaccoism. Hyponatremia. Patient had severe pain in the right hip and numbness in the right foot Clinical Quality Measures Admission Status Admission Dx Intubated and on ventilator post bronchoscopy. COPD. CAD. Hypotension. Tobaccoism. Asthma. DVT/VTE Risk/Contraindication: Risk Factor Score Per Nursin RFS Level Per Nursing on Admit: 4+=Very High Contraindications-Pharm: Other *list below* LAZARO CARREON DO Nov 14, 2018 08:18
--- NOTE | 2018-11-14 09:00 | NUR ---
LORTAB 7.5 FOR C/O RT HIP PAIN.
[2018-11-14] MEDS ORDERED: CEFEPIME 2 GM (MAXIPIME) VIAL ONE (09:08)
[2018-11-14] MEDS ORDERED: WATER (STERILE) FOR INJECTION 20 ML ONE (09:09)
[2018-11-14] MEDS: meTOproloL SUCCINATE 50 MG (TOPROL XL) TAB PO SCH (09:12)
[2018-11-14] MEDS: CLOPIDOGREL 75 MG (PLAVIX) TABLET PO SCH (09:12)
[2018-11-14] MEDS: VALSARTAN 80 MG (DIOVAN) TAB PO SCH (09:12)
[2018-11-14] MEDS: PANTOPRAZOLE 40 MG (PROTONIX) VIAL IV SCH (09:13)
[2018-11-14] MEDS: SPIRONOLACTONE 25 MG (ALDACTONE) TAB PO SCH (09:13)
[2018-11-14] MEDS: ASPIRIN 81 MG CHEW (CHILDREN'S ASA) PO SCH (09:13)
[2018-11-14] MEDS: CEFEPIME INJECTION 2,000 MG in WATER (STERILE) FOR INJECTION 20 ML IV SCH ×2 (09:15→20:22)
--- NOTE | 2018-11-14 09:45 | Diagnostic Imaging Report ---
PROCEDURE: US Venous Lower Ext Ruslan. INDICATION: Shortness of breath, hemoptysis, numbness in feet. Edema. Pain. TECHNIQUE: Grayscale with color-flow and Doppler waveform evaluation of the bilateral lower extremity deep venous systems. CORRELATION STUDY: None FINDINGS: Color and grayscale sonographic images demonstrate no intraluminal defect within the visualized portion of the common femoral, superficial femoral and/or popliteal veins to suggest thrombus formation. These vessels demonstrate normal response to compression and augmentation. No soft tissue fluid collection. IMPRESSION: 1. Negative for deep venous thrombosis of either leg. Dictated by: Dictated on workstation # [id number]
--- NOTE | 2018-11-14 09:53 | Diagnostic Imaging Report ---
PROCEDURE: US Bilateral lower extremity arterial. TECHNIQUE: Multiple Real-time grayscale images are obtained through both lower extremity arterial systems with color Doppler imaging and color Doppler spectral analysis. INDICATION: Hemoptysis, shortness of breath, and numbness in the foot. FINDINGS: The examination is somewhat limited given the generalized soft tissue edema. There do appear to be diffuse scattered areas of atherosclerotic calcified plaque throughout the major arteries of both legs. The left lower extremity arterial system is patent to the level of the ankle via the dorsalis pedis and posterior tibial arteries. On the right, there is no detectable flow within the dorsalis pedis artery and/or anterior tibial artery. There are triphasic with some areas of biphasic waveforms noted in both lower extremities. There is a slight velocity change from the distal aspect of the superficial femoral arteries to the popliteal arteries bilaterally which may be reflective of mild narrowing. Otherwise, a definitive velocity change is not suggested to reflect a potential focal area of stenosis. IMPRESSION: 1. There is diffuse atherosclerotic change about the major arteries of both legs. 2. There is absence of flow within the right dorsalis pedis and anterior tibial arteries. 3. Patent left lower extremity arterial system. Dictated by: Dictated on workstation # [id number]
--- NOTE | 2018-11-14 09:54 | Progress Note-Cardiology ---
Cardiology SOAP Progress Note Subjective: Sitting up on the side of the bed. C/O right hip pain and a feeling of numbness in his toes of new onset. He denies any c/o CP or palpitations. Chronic JARQUIN which is unchanged. Objective: I&O/Vital Signs 11/14/18 11/14/18 11/14/18 11/14/18 07:14 08:00 08:00 11:19 Temp 96.1 Pulse 70 Resp 20 B/P (MAP) 114/56 (75) Pulse Ox 92 95 O2 Delivery Nasal Cannula Nasal Cannula Nasal Cannula Nasal Cannula O2 Flow Rate 2.00 1.00 1.00 2.00 11/14/18 12:00 Temp 96.4 Pulse 75 Resp 20 B/P (MAP) 120/58 (78) Pulse Ox 97 O2 Delivery Nasal Cannula O2 Flow Rate 1.00 11/14/18 00:00 Intake Total 1875 ml Output Total 3150 ml Balance -1275 ml Weight (Pounds): 280 Weight (Ounces): 0.0 Weight (Calculated Kilograms): 127.607293 Constitutional: appears stated age; No apparent distress; well-developed, well- nourished Respiratory: rhonchi (scattered), wheezing Cardiovascular: regular rate-rhythm; No JVD; S1 and S2, systolic murmur Gastrointestional: soft, round, audible bowel sounds Extremities: other (right foot cool to touch; unable to palpate DP or PT pulse) , no lower extremity edema bilateral Neurologic/Psychiatric: grossly intact Skin: No rash, No ulcerations Results/Procedures: Labs Laboratory Tests 11/14/18 04:20: White Blood Count 13.8H, Red Blood Count 3.96L, Hemoglobin 12.3L, Hematocrit 37L , Mean Corpuscular Volume 94, Mean Corpuscular Hemoglobin 31, Mean Corpuscular Hemoglobin Concent 33, Red Cell Distribution Width 13.6, Platelet Count 117L, Mean Platelet Volume 10.8H, Neutrophils (%) (Auto) 74, Lymphocytes (%) (Auto) 15 , Monocytes (%) (Auto) 8, Eosinophils (%) (Auto) 3, Basophils (%) (Auto) 0, Neutrophils # (Auto) 10.3H, Lymphocytes # (Auto) 2.1, Monocytes # (Auto) 1.1H, Eosinophils # (Auto) 0.4H, Basophils # (Auto) 0.0, Sodium Level 135, Potassium Level 3.9, Chloride Level 104, Carbon Dioxide Level 20L, Anion Gap 11, Blood Urea Nitrogen 25H, Creatinine 0.86, Estimat Glomerular Filtration Rate > 60, BUN /Creatinine Ratio 29, Glucose Level 97, Calcium Level 8.1L, Phosphorus Level 3.7 , Magnesium Level 2.6H Microbiology 11/12/18 Gram Stain - Final, Resulted 11/12/18 Bronchial Culture - Final, Resulted No growth 11/12/18 Fungal Culture 1 - Preliminary, Resulted Procedures NAME: BRAD WARREN [facility] REC#: [id number] PT STATUS: [facility] : 1960 PHYSICIAN: OLGA REBOLLAR DO ADMIT DATE: 11/12/18 Signed Date of Exam: 11/14/18 US VENOUS LOWER EXT JULIO C PROCEDURE: US Venous Lower Ext Julio C. INDICATION: Shortness of breath, hemoptysis, numbness in feet. Edema. Pain. TECHNIQUE: Grayscale with color-flow and Doppler waveform evaluation of the bilateral lower extremity deep venous systems. CORRELATION STUDY: None FINDINGS: Color and grayscale sonographic images demonstrate no intraluminal defect within the visualized portion of the common femoral, superficial femoral and/or popliteal veins to suggest thrombus formation. These vessels demonstrate normal response to compression and augmentation. No soft tissue fluid collection. IMPRESSION: 1. Negative for deep venous thrombosis of either leg. Dictated by: Dictated on workstation # [id number] Dict: 11/14/18940 Trans: 11/14/1842 Interpreted by: CAMELIA SEWELL DO Electronically signed by: CAMELIA SEWELL DO 11/14/18 0942 A/P: Assessment: Hip pain post bronchoscopy on 11/13/18; x-ray shows DJD PAD. Arterial Doppler of legs shows R ant tib/ DP is occluded but R post tibial is flowing Chronic resp failure - intubated on the vent post bronchoscopy, now off vent - management per pulmonary services Chronic systolic CHF - clinically improving Ischemic cardiomyopathy. Echo of 10/21/18: LVEF 25-30%, anteroseptal and apical akinesis, biatrial enlargement, PASP 25 mmHg COPD CAD. Cardiac cath of December 10, 2017: Coronary artery disease is consisting of 80 % proximal stenosis of the left anterior descending artery and mid vessel occlusion of the left anterior descending artery. The distal left anterior descending artery is protected by a patent left internal mammary artery graft to the distal left anterior descending artery. A ramus intermedius artery is known to have overlapping stents (Promus 2.5 x 38 and 2.5 x 12) that were exhibiting up to 90% stenosis. The ostial ramus intermedius had 95% stenosis. The left circumflex artery is known to have a 4.0 x 24 mm stent, which was exhibiting 70% stenosis. To these stenoses in the ramus intermedius and in the left circumflex, kissing balloon angioplasty was carried out, which reduced the stenosis to approximately 30%. The distal ramus intermedius artery has 70% stenosis where the vessel is of a small caliber and not amenable to intervention. The right coronary artery is a small, nondominant and has diffuse moderately severe disease. Moderately elevated left ventricular end- diastolic pressure. Anterolateral and apical hypokinesis. Mild impairment of global left ventricular systolic function with ejection fraction 45% to 50%. Abnormal ECG: ECG of 12/10/16 showed NSR with repol abn in anterolat leads, essentially unchanged on 12/04/17 Status post defibrillator [place] [address] Reynaga at [facility]. Device was replaced on 07/26/15 after it had reached RODRIGUEZ. It is fucntioning normally on interrogation of Aug 2018 Reactive airway disease. Chronic tobaccoism - cessation advised Chronic joint and back discomfort. Sleep apnea for which he's on CPAP therapy. History of mild intermittent liver enzyme elevation, likely related to alcohol use, followed by Dr Ryan H/o noncompliance with medications. Hyperlipidemia - PCP managing Mild carotid arterial disease on carotid u/s of 09/07/16 Plan: * I reviewed and discussed his Doppler findings with Dr Mendoza, our radiologist * I discussed the findings of today's noninvasive venous and arterial w/u with Mr Warren and his family. R DP occlusion is probably chronic. R leg is getting blood flow through the R PT. The R forefoot is somewhat cooler than the L forefoot, but there are no gangrenous changes. Under these circumstances conservative approach appears reasonable. Invasive options were also reviewed. He is considering his options * We advise ambulation with assistance * Monitor clinically * Monitor labs JOS DIAS Nov 14, 2018 09:54 ALFREDO WANG MD [facility] Nov 14, 2018 17:06
--- NOTE | 2018-11-14 10:22 | Diagnostic Imaging Report ---
INDICATION: Right hip pain for a couple of days. TECHNIQUE: 2 views of the right hip. CORRELATION STUDY: None FINDINGS: Mild joint space narrowing. Mild acetabular spurring superiorly. Bony tubercle pattern appears unremarkable. Femoral acetabular relationship appears fairly unremarkable. Vascular calcification is present. IMPRESSION: 1. Negative for acute bony abnormality of the right hip. Mild to moderately advanced degenerative changes are suggested. Dictated by: Dictated on workstation # [id number]
--- NOTE | 2018-11-14 10:30 | NUR ---
DR. CARREON CALLED REPORT OF US. DR. WANG NOTIFIED OF REPORT PER DR. CARREON'S REQUEST.
[2018-11-14 12:00] VITALS: BP 120/58
[2018-11-14 16:00] VITALS: BP 111/70
--- NOTE | 2018-11-14 16:15 | NUR ---
LORTAB 7.5MG 2 PO FOR RT HIP PAIN.
--- NOTE | 2018-11-14 17:04 | NUR ---
This nurse and [employer] assisted patient to ambulate in [place] using gait belt and walker. Patient ambulated approximately 80 ft on room air. Slight diaphoresis noted, however, tolerated well. At end of ambulation patient's O2 Saturations were between 95-98%. Reported to patient's primary nurse.
--- NOTE | 2018-11-14 17:09 | NUR ---
O2 OFF AT THIS TIME.
[2018-11-14 19:30] VITALS: BP 103/52
[2018-11-15] VITALS: BP 111/69
[2018-11-15] MEDS: RT-ALBUTEROL/IPRATROPIUM 3 ML (DUONEB) VIAL INH SCH ×3 (01:56→10:37)
[2018-11-15] MEDS: HYDROcodone/APAP 7.5 MG/325 MG (LORTAB, LORCET PLUS) TABLET PO PRN ×2 (04:17→09:51)
[2018-11-15 06:20] LABS: BASOPHILS % (AUTO) 0 % (0-10); EOSINOPHILS # (AUTO) 0.1 10^3/uL (0.0-0.3); EOSINOPHILS % (AUTO) 1 % (0-10); HEMATOCRIT 35 % (40-54); HEMOGLOBIN 11.3 G/DL (13.3-17.7); LYMPHOCYTES # (AUTO) 1.3 X 10^3 (1.0-4.0); LYMPHOCYTES % (AUTO) 15 % (12-44); MEAN CORPUSCULAR HEMOGLOBIN 31 PG (25-34); MEAN CORPUSCULAR HGB CONC 33 G/DL (32-36); MEAN CORPUSCULAR VOLUME 95 FL (80-99); MEAN PLATELET VOLUME 10.6 FL (7.4-10.4); MONOCYTES # (AUTO) 0.8 X 10^3 (0.0-1.0); MONOCYTES % (AUTO) 9 % (0-12); NEUTROPHILS # (AUTO) 6.5 X 10^3 (1.8-7.8); NEUTROPHILS % (AUTO) 75 % (42-75); PLATELET COUNT 165 10^3/uL (130-400); RED CELL DISTRIBUTION WIDTH 13.6 % (10.0-14.5); WHITE BLOOD COUNT 8.8 10^3/uL (4.3-11.0)
[2018-11-15 06:39] LABS: BUN/CREATININE RATIO 26; CALCIUM 8.4 MG/DL (8.5-10.1); CARBON DIOXIDE 24 MMOL/L (21-32); CHLORIDE 99 MMOL/L (98-107); CREATININE SERUM 0.85 MG/DL (0.60-1.30); GFR ESTIMATED > 60; GLUCOSE 99 MG/DL (70-105); MAGNESIUM 2.8 MG/DL (1.8-2.4); PHOSPHORUS 3.4 MG/DL (2.3-4.7); POTASSIUM 3.6 MMOL/L (3.6-5.0); SODIUM 134 MMOL/L (135-145)
--- NOTE | 2018-11-15 07:35 | Pulmonary Progress Note ---
Subjective Time Seen by a Provider: 07:33 Subjective/Events-last exam No respiratory complications noted. Sepsis Event Evaluation Height, Weight, BMI Height: 5'8.00" Weight: 286lbs. 0.0oz. 129.128201zv; 41.6 BMI Method:Stated Exam Exam Vital Signs Date Time Temp Pulse Resp B/P (MAP) Pulse Ox O2 Delivery O2 Flow Rate FiO2 11/15/18 07:18 91 Room Air 11/15/18 01:56 96 Nasal Cannula 2.00 11/15/18 00:00 97.8 74 20 111/69 (83) 98 Nasal Cannula 1.00 11/14/18 21:52 86 Room Air 11/14/18 20:00 Room Air 11/14/18 19:56 90 Room Air 11/14/18 19:30 98.3 73 22 103/52 (69) 93 Room Air 11/14/18 16:00 98.3 68 20 111/70 (84) 97 Nasal Cannula 1.00 11/14/18 12:00 96.4 75 20 120/58 (78) 97 Nasal Cannula 1.00 11/14/18 11:19 Nasal Cannula 2.00 11/14/18 08:00 96.1 70 20 114/56 (75) 95 Nasal Cannula 1.00 11/14/18 08:00 Nasal Cannula 1.00 I & O 11/15/18 07:00 Intake Total 2180 ml Output Total 1050 ml Balance 1130 ml Height & Weight Height: 5'8.00" Weight: 286lbs. 0.0oz. 129.531600pd; 41.6 BMI Method:Stated General Appearance: No Apparent Distress, WD/WN HEENT: Normal ENT Inspection Neck: Normal Inspection, Non Tender Respiratory: No Accessory Muscle Use, No Respiratory Distress, Decreased Breath Sounds Cardiovascular: Regular Rate, Rhythm, No Murmur Capillary Refill: Less Than 3 Seconds Gastrointestinal: non tender, soft Extremity: Other (Right hip pain, numbness right foot) Results Lab Laboratory Tests 11/14/18 04:20 11/15/18 05:50 Assessment/Plan Assessment/Plan S/p Acute respiratory failure s/p bronchoscopy with EBUS -PT is doing well of ventilator -SVNS duoneb Q 4 -Cytology is negative Leukocytosis - R/o infection reactive doubt infection -Cefepime PVD with right foot/lower right leg numbness - -Check bilateral LE venous - neg for DVT -arterial dopplers- show no flow in dorsalis pedis and ant tibial. Dr. Gomes discussed treatment options with patient. -Head CT no acute change -Lumbar spine CT shows stenosis CHF EF 25%, CAD - Cardiology following Pt is ok for discharge from pulmonary standpoint. Abx can be changed to Omnicef x 5 days at discharge. He will need oxygen testing. Will order ambulatory desat test now. OLGA REBOLLAR DO Nov 15, 2018 07:35
[2018-11-15 08:00] VITALS: BP 130/63
--- NOTE | 2018-11-15 08:42 | Diagnostic Imaging Report ---
INDICATION: Dyspnea. TIME OF EXAM: 3:29 AM Comparison is made with prior study from one day earlier. FINDINGS: Changes of median sternotomy are noted. The heart remains enlarged. Cardiac defibrillator is in place. Lungs appear to be fairly clear apart from some mild patchy infiltrate in the right base similar to yesterday. No effusion or pneumothorax is seen. IMPRESSION: Stable chest since exam one day earlier. Dictated by: Dictated on workstation # [id number]
[2018-11-15] MEDS ORDERED: PANTOPRAZOLE 40 MG (PROTONIX) TAB PO SCH (09:00)
--- NOTE | 2018-11-15 09:47 | NUR ---
HOME 02 QUALIFICATION DONE. PT NOT ABLE TO AMBULATE VERY FAR. PTS SP02 DROPPED TO 86% WITHIN THE FIRST MINUTE OF AMBULATION.2LPM WAS APPLIED. ABLE TO AMBULATE FOR 2 MORE MINS, SP02 CONSISTENTLY 95%. CONTINUED TO BE 95% WITHOUT EXERTION. PT QUALIFIES FOR HOME 02 AT 2LPM AT ALL TIMES. Addendum: 11/15/18 at 0947 by CINDA BROWN RT Amended: Links added.
[2018-11-15] MEDS: SPIRONOLACTONE 25 MG (ALDACTONE) TAB PO SCH (09:50)
[2018-11-15] MEDS: ASPIRIN 81 MG CHEW (CHILDREN'S ASA) PO SCH (09:50)
[2018-11-15] MEDS: VALSARTAN 80 MG (DIOVAN) TAB PO SCH (09:51)
[2018-11-15] MEDS: meTOproloL SUCCINATE 50 MG (TOPROL XL) TAB PO SCH (09:51)
[2018-11-15] MEDS: CLOPIDOGREL 75 MG (PLAVIX) TABLET PO SCH (09:51)
[2018-11-15] MEDS: CEFEPIME INJECTION 2,000 MG in WATER (STERILE) FOR INJECTION 20 ML IV SCH (09:52)
[2018-11-15] MEDS ORDERED: IPRA3AMP31 INH (12:40)
[2018-11-15] MEDS ORDERED: HYDR-34 PO (12:40)
--- NOTE | 2018-11-15 12:42 | Discharge Summary-Hospitalist ---
Diagnosis/Chief Complaint Date of Admission Date of Discharge Discharge Date: Nov 15, 2018 Discharge Diagnosis Assessment: s/p Acute respiratory failure s/p bronchoscopy with EBUS COPD with exacerbation placed on steroids Leukocytosis likely due to pneumonitis on bronch specimen PVD with right foot/lower right leg numbness - CHF EF 25%, CAD Smoker (1) Hemoptysis (2) Pneumonitis Status: Acute (3) COPD exacerbation Status: Acute (4) Smoker Status: Chronic (5) HTN (hypertension) Status: Chronic (6) Ischemic cardiomyopathy Status: Chronic (7) Emphysema lung Status: Chronic Discharge Summary Discharge Physical Exam Allergies: Coded Allergies: Penicillins (Verified Allergy, Mild, ITCHING, 11/05/18) ketorolac (Unverified Allergy, Mild, ITCHING, 11/05/18) Vitals & I&Os Vital Signs Date Time Temp Pulse Resp B/P (MAP) Pulse Ox O2 Delivery O2 Flow Rate FiO2 11/15/18 10:38 96 Nasal Cannula 2.00 11/15/18 08:00 98.6 84 22 130/63 (85) 11/14/18 04:00 25 General Appearance: No Apparent Distress, WD/WN, Chronically ill, Obese Respiratory: Chest Non Tender, No Accessory Muscle Use, No Respiratory Distress , Decreased Breath Sounds, Wheezing Cardiovascular: Regular Rate, Rhythm, No Edema, No Gallop, No JVD, No Murmur, Normal Peripheral Pulses Neurologic/Psychiatric: Alert, Oriented x3, No Motor/Sensory Deficits, Normal Mood/Affect Hospital Course Was the Problem List Reviewed?: Yes Hospital course: Patient was admitted after respiratory failure following a bronchoscopy and EBUS. Patient was placed empirically on cefepime and IV steroids. Hemoptysis occurred but that resolved. Patient needed home oxygen at discharge and those orders placed at 2 L continuous. Smoking cessation was counseled. Right hip pain and right leg pain will be addressed by primary care provider at discharge next week. Antibiotic and steroids pain medication and DuoNeb nebulizer treatments along with nebulizer machine and oxygen were all sent in as ordered. Labs (last 24 hrs) Laboratory Tests 11/15/18 05:50: White Blood Count 8.8, Red Blood Count 3.65L, Hemoglobin 11.3L, Hematocrit 35L, Mean Corpuscular Volume 95, Mean Corpuscular Hemoglobin 31, Mean Corpuscular Hemoglobin Concent 33, Red Cell Distribution Width 13.6, Platelet Count 165, Mean Platelet Volume 10.6H, Neutrophils (%) (Auto) 75, Lymphocytes (%) (Auto) 15 , Monocytes (%) (Auto) 9, Eosinophils (%) (Auto) 1, Basophils (%) (Auto) 0, Neutrophils # (Auto) 6.5, Lymphocytes # (Auto) 1.3, Monocytes # (Auto) 0.8, Eosinophils # (Auto) 0.1, Basophils # (Auto) 0.0, Sodium Level 134L, Potassium Level 3.6, Chloride Level 99, Carbon Dioxide Level 24, Anion Gap 11, Blood Urea Nitrogen 22H, Creatinine 0.85, Estimat Glomerular Filtration Rate > 60, BUN/ Creatinine Ratio 26, Glucose Level 99, Calcium Level 8.4L, Phosphorus Level 3.4 , Magnesium Level 2.8H Microbiology 11/12/18 Gram Stain - Final, Resulted 11/12/18 Bronchial Culture - Final, Resulted No growth 11/12/18 Fungal Culture 1 - Preliminary, Resulted Patient resulted labs reviewed. Pending Labs Discussion & Recommendations Discharge Planning: <30 minutes discharge planning Discharge Home Medications: Active Scripts Active Prednisone 10 Mg Tab.ds.pk 10 Mg PO DAILY Take 6 tabs(60mg)daily,decrease by 1 tab(10MG)daily. Cefdinir 300 Mg Capsule 300 Mg PO BID Lortab 7.5 Mg Tablet (Acetaminophen/Hydrocodone Bitart) 1 Ea Tablet 1-2 Ea PO Q6H PRN Iprat-Albut 0.5-3(2.5) mg/3 ml (Ipratropium/Albuterol Sulfate) 3 Ml Ampul.neb 3 Ml INH RTQ4HR Spironolactone 25 Mg Tablet 25 Mg PO DAILY 30 Days Atorvastatin Calcium 40 Mg Tablet 40 Mg PO DAILY 30 Days Furosemide 40 Mg Tablet 40 Mg PO DAILY 30 Days Diovan (Valsartan) 80 Mg Tablet 80 Mg PO DAILY 30 Days Metoprolol Succinate 50 Mg Tab.er.24h 50 Mg PO DAILY 30 Days Reported Clopidogrel (Clopidogrel Bisulfate) 75 Mg Tablet 75 Mg PO DAILY Ventolin Hfa (Albuterol Sulfate) 18 Gm Hfa.aer.ad 2 Puff INH Q4H PRN Fluticasone Propionate 16 Gm [place].susp 2 Sprays NS DAILY Spiriva Respimat 2.5MCG/ACTUATION (Tiotropium [place]) 4 Gm Mist.inhal 2 Puff IH DAILY Baclofen 10 Mg Tablet 10 Mg PO TID PRN Gabapentin 600 Mg Tablet 600 Mg PO TID Aspirin 81 Mg Tab.chew 81 Mg PO DAILY Tramadol HCl 50 Mg Tablet 50 Mg PO TID PRN Advair 250-50 Diskus (Fluticasone/Salmeterol) 1 Each Blst.w.dev 1 Puff IH BID Nitroglycerin 0.4 Mg Tab.subl 0.4 Mg SL UD PRN 1 TABLET EVERY 5 MINUTES X 3 DOSES Instructions to patient/family Please see electronic discharge instructions given to patient. Clinical Quality Measures DVT/VTE Risk/Contraindication: Risk Factor Score Per Nursin RFS Level Per Nursing on Admit: 4+=Very High Contraindications-Pharm: Other *list below* Problem Qualifiers (1) HTN (hypertension): Hypertension type: essential hypertension Qualified Codes: I10 - Essential ( primary) hypertension (2) Emphysema lung: Emphysema type: unspecified Qualified Codes: J43.9 - Emphysema, unspecified BC CLAROS DO Nov 15, 2018 12:42
--- NOTE | 2018-11-15 13:58 | NUR ---
VIA [facility] HERE AND BROUGHT PT. PORTABLE O2 TANK.
[2018-11-15] MEDS ORDERED: PRED10TA22 PO (13:59)
[2018-11-15] MEDS ORDERED: CEFD300C3 PO (13:59)
[2018-11-15 14:00] VITALS: BP 130/63
--- NOTE | 2018-11-15 14:00 | NUR ---
BRAD MIRZA demonstrates understanding of discharge instructions and accurately returns instructions upon questioning. Copy of Post-Discharge Instructions given to PT. BRAD MIRZA is able to manage continuing needs after discharge. Patients belongings returned to PT. Patient discharged from [facility] on 11/15/17 at 1400. BRAD MIRZA left floor via W/C, accompanied by STAFF AND .
--- NOTE | 2018-11-15 14:14 | Progress Note-Cardiology ---
Cardiology SOAP Progress Note Subjective: Foot numbness has resolved completely. Normal power in the toes and ankles. No discoloration R hip discomfort is persistent Able to ambulate in the lucia No cp Shortness of breath at usual baseline No palp or syncope Objective: I&O/Vital Signs 11/15/18 11/15/18 11/15/18 11/15/18 07:18 08:00 09:43 10:38 Temp 98.6 Pulse 84 Resp 22 B/P (MAP) 130/63 (85) Pulse Ox 91 93 96 O2 Delivery Room Air Nasal Cannula Nasal Cannula O2 Flow Rate 1.00 0.00 2.00 11/15/18 00:00 Intake Total 1760 ml Output Total 350 ml Balance 1410 ml Weight (Pounds): 286 Weight (Ounces): 0.0 Weight (Calculated Kilograms): 129.511213 Constitutional: appears stated age; No apparent distress; well-developed, well- nourished Respiratory: rhonchi (scattered), wheezing Cardiovascular: regular rate-rhythm; No JVD; S1 and S2, systolic murmur Gastrointestional: soft, round, audible bowel sounds Extremities: other (right foot cool to touch; unable to palpate DP or PT pulse) , no lower extremity edema bilateral Neurologic/Psychiatric: grossly intact Skin: No rash, No ulcerations Results/Procedures: Labs Laboratory Tests 11/15/18 05:50: White Blood Count 8.8, Red Blood Count 3.65L, Hemoglobin 11.3L, Hematocrit 35L, Mean Corpuscular Volume 95, Mean Corpuscular Hemoglobin 31, Mean Corpuscular Hemoglobin Concent 33, Red Cell Distribution Width 13.6, Platelet Count 165, Mean Platelet Volume 10.6H, Neutrophils (%) (Auto) 75, Lymphocytes (%) (Auto) 15 , Monocytes (%) (Auto) 9, Eosinophils (%) (Auto) 1, Basophils (%) (Auto) 0, Neutrophils # (Auto) 6.5, Lymphocytes # (Auto) 1.3, Monocytes # (Auto) 0.8, Eosinophils # (Auto) 0.1, Basophils # (Auto) 0.0, Sodium Level 134L, Potassium Level 3.6, Chloride Level 99, Carbon Dioxide Level 24, Anion Gap 11, Blood Urea Nitrogen 22H, Creatinine 0.85, Estimat Glomerular Filtration Rate > 60, BUN/ Creatinine Ratio 26, Glucose Level 99, Calcium Level 8.4L, Phosphorus Level 3.4 , Magnesium Level 2.8H Microbiology 11/12/18 Gram Stain - Final, Resulted 11/12/18 Bronchial Culture - Final, Resulted No growth 11/12/18 Fungal Culture 1 - Preliminary, Resulted A/P: Assessment: Hip pain post bronchoscopy on 11/13/18; x-ray shows DJD PAD. Arterial Doppler of legs shows R ant tib/ DP is occluded but R post tibial is flowing. The right anterior tibial occlusion is likely chronic. No signs of any acute vascular compromise Chronic resp failure - intubated on the vent post bronchoscopy, now off vent - management per pulmonary services Chronic systolic CHF - clinically improving Ischemic cardiomyopathy. Echo of 10/21/18: LVEF 25-30%, anteroseptal and apical akinesis, biatrial enlargement, PASP 25 mmHg COPD CAD. Cardiac cath of December 10, 2017: Coronary artery disease is consisting of 80 % proximal stenosis of the left anterior descending artery and mid vessel occlusion of the left anterior descending artery. The distal left anterior descending artery is protected by a patent left internal mammary artery graft to the distal left anterior descending artery. A ramus intermedius artery is known to have overlapping stents (Promus 2.5 x 38 and 2.5 x 12) that were exhibiting up to 90% stenosis. The ostial ramus intermedius had 95% stenosis. The left circumflex artery is known to have a 4.0 x 24 mm stent, which was exhibiting 70% stenosis. To these stenoses in the ramus intermedius and in the left circumflex, kissing balloon angioplasty was carried out, which reduced the stenosis to approximately 30%. The distal ramus intermedius artery has 70% stenosis where the vessel is of a small caliber and not amenable to intervention. The right coronary artery is a small, nondominant and has diffuse moderately severe disease. Moderately elevated left ventricular end- diastolic pressure. Anterolateral and apical hypokinesis. Mild impairment of global left ventricular systolic function with ejection fraction 45% to 50%. Abnormal ECG: ECG of 12/10/16 showed NSR with repol abn in anterolat leads, essentially unchanged on 12/04/17 Status post defibrillator placement [place] [address] Reynaga at [facility]. Device was replaced on 07/26/15 after it had reached RODRIGUEZ. It is fucntioning normally on interrogation of Aug 2018 Reactive airway disease. Chronic tobaccoism - cessation advised Chronic joint and back discomfort. Sleep apnea for which he's on CPAP therapy. History of mild intermittent liver enzyme elevation, likely related to alcohol use, followed by Dr Ryan H/o noncompliance with medications. Hyperlipidemia - PCP managing Mild carotid arterial disease on carotid u/s of 09/07/16 Plan: * He is currently not experiencing any foot symptoms. Both feet are equally warm to touch and w/o any signs of vasc compromise. He wishes to go home and does not desire any invasive management * I have again advised immediate and complete smoking cessation * Close outpt f/u is advised ALFREDO WANG MD FACP FACC CCDS Nov 15, 2018 14:14
== END 2018-11-15 14:00 | disposition home or self-care (01) | DRG 166 ==
LOC: ENDO 07:06 → ICU 10:08 → ENDO 11-13 08:23 → UNDOFXSDCACCOM 11-13 08:24 → ICU 11-13 08:24 → UNDOFXSDCRRACCOM 11-13 08:24 → UNDOFXSDCACCOM 11-13 16:56 → UNDOFXSDCRRACCOM 11-13 16:56 → UNDOFXSDCSVC 11-13 16:56 → UNDOFXSDCACCOM 11-13 18:01 → 4TH 11-13 18:01 → ICU 11-13 18:01 → 4TH 11-13 18:01 → ENDO 11-15 14:00
PROVIDERS: ADMIT Internal Medicine Critical Care Medicine; ATTEND Internal Medicine Critical Care Medicine
PROC: 5A1935Z Respiratory Ventilation, Less than 24 Consecutive Hours (ICD-10-PCS; 2018-11-12)
PROC: 0B9F8ZX Drainage of Right Lower Lung Lobe, Via Natural or Artificial Opening Endoscopic, Diagnostic (ICD-10-PCS; 2018-11-12)
PROC: 0B978ZX Drainage of Left Main Bronchus, Via Natural or Artificial Opening Endoscopic, Diagnostic (ICD-10-PCS; 2018-11-12)
PROC: 0BDF8ZX Extraction of Right Lower Lung Lobe, Via Natural or Artificial Opening Endoscopic, Diagnostic (ICD-10-PCS; 2018-11-12)
PROC: 07B74ZX Excision of Thorax Lymphatic, Percutaneous Endoscopic Approach, Diagnostic (ICD-10-PCS; principal; 2018-11-12 07:30)
DX: J96.20 Acute and chronic respiratory failure, unspecified whether with hypoxia or hypercapnia (principal); I11.0 Hypertensive heart disease with heart failure; I50.23 Acute on chronic systolic (congestive) heart failure; J18.9 Pneumonia, unspecified organism; R04.2 Hemoptysis; J43.9 Emphysema, unspecified; I25.5 Ischemic cardiomyopathy; I70.201 Unspecified atherosclerosis of native arteries of extremities, right leg; I70.92 Chronic total occlusion of artery of the extremities; I95.2 Hypotension due to drugs; T42.75XA Adverse effect of unspecified antiepileptic and sedative-hypnotic drugs, initial encounter; E87.1 Hypo-osmolality and hyponatremia; G47.33 Obstructive sleep apnea (adult) (pediatric); I25.10 Atherosclerotic heart disease of native coronary artery without angina pectoris; F41.9 Anxiety disorder, unspecified; J45.909 Unspecified asthma, uncomplicated; E78.5 Hyperlipidemia, unspecified; F17.210 Nicotine dependence, cigarettes, uncomplicated; M16.11 Unilateral primary osteoarthritis, right hip; Z95.1 Presence of aortocoronary bypass graft; Z95.5 Presence of coronary angioplasty implant and graft; Z95.810 Presence of automatic (implantable) cardiac defibrillator; I25.2 Old myocardial infarction; Z91.14 Patient's other noncompliance with medication regimen; Z86.73 Personal history of transient ischemic attack (TIA), and cerebral infarction without residual deficits
CPT/HCPCS: 36415; 36600; 70496; 70498; 71045; 72131; 80048; 80053; 82805; 82962; 83735; 83880; 84100; 84478; 85007; 85025; 85027; 87070; 87101; 87205; 88112; 88173; 88305; 88312; 89051; 93005; 94002; 94640; 94761; 94799

== ENCOUNTER → 2018-11-26 | Outpatient (CLI) | payer MEDICARE ==
[~2018-11-26] MED LIST changes: +CEFD300C3 PO; +HOLD METFORMIN - RECEIVED CONTRAST 20 ML VIAL IV SCH; +IOHEXOL 350 MG/ML 100 ML (OMNIPAQUE 350) VIAL IV ONE; +IPRA3AMP31 INH; +PRED10TA22 PO; +RT-ALBUTEROL SULF 2.5 MG/3 ML PRE-MIX VIAL INH ONE
[2018-11-26 11:40] LABS: BUN/CREATININE RATIO 13; CREATININE SERUM 0.84 MG/DL (0.60-1.30); GFR ESTIMATED > 60
--- NOTE | 2018-11-26 15:08 | Diagnostic Imaging Report ---
PROCEDURE: CT chest with contrast only. TECHNIQUE: Multiple contiguous axial images were obtained through the chest after administration of intravenous contrast. Automatic exposure controls were utilized during the CT exam to meet ALARA standards for radiation dose reduction. DATE: November 26, 2018. COMPARISON: Chest radiograph, November 25, 2018. CT chest, August 28, 2018. INDICATION: 58-year-old male, hemoptysis. Chest pain and shortness of breath. FINDINGS: There is no identified noncalcified pulmonary nodule or lung mass. There are linear opacities in the right middle lobe likely relating to scarring and/or atelectasis. There are calcified right hilar and paratracheal lymph nodes likely relating to sequela of prior granulomatous disease. There is a subcentimeter calcified right lower lobe granuloma. There is no otherwise noted focal airspace consolidation. The central airways are patent. There is no pneumothorax. There is no pleural effusion. There are coronary artery calcifications. The heart is not grossly enlarged. There is no pericardial effusion. There is nondiagnostic assessment for pulmonary embolus given the timing of the contrast bolus. There is no identified abnormally enlarged mediastinal, hilar or axillary lymph node which meets CT size criteria for adenopathy. There is questionable mild diffuse fatty infiltration of the liver. There is nonspecific inflammatory stranding adjacent to the proximal left colon without identified abnormal bowel wall thickening. There is a probable small accessory splenule on axial image 39. Additional evaluation of the imaged portions of the upper abdomen is unremarkable. There are median sternotomy wires. There is no identified acute bony abnormality. IMPRESSION: CT chest: 1. No identified acute cardiopulmonary abnormality. 2. Questionable mild diffuse fatty infiltration of the liver. 3. Nonspecific inflammatory stranding adjacent to the proximal aspect of the left colon without visible bowel wall thickening in the included [id number]. This is nonspecific. 4. Sequela of prior granulomatous disease. Dictated by: Dictated on workstation # [id number]
== END ==
LOC: RAD 11:08
PROVIDERS: ATTEND Nurse Practitioner Family
DX: J44.9 Chronic obstructive pulmonary disease, unspecified (principal); G47.33 Obstructive sleep apnea (adult) (pediatric); R04.2 Hemoptysis; J84.10 Pulmonary fibrosis, unspecified; Z95.818 Presence of other cardiac implants and grafts; Z98.890 Other specified postprocedural states; Z91.14 Patient's other noncompliance with medication regimen; Z72.0 Tobacco use
CPT/HCPCS: 36415; 71260; 82565; 84520; 94060; 94726; 94729

== ENCOUNTER → 2018-12-22 | Outpatient (CLI) | payer MEDICARE ==
[~2018-12-22] MED LIST changes: -HOLD METFORMIN - RECEIVED CONTRAST 20 ML VIAL IV SCH; -IOHEXOL 350 MG/ML 100 ML (OMNIPAQUE 350) VIAL IV ONE; -RT-ALBUTEROL SULF 2.5 MG/3 ML PRE-MIX VIAL INH ONE
--- NOTE | 2018-12-22 19:32 | Diagnostic Imaging Report ---
INDICATION: Right great toe pain. TIME OF EXAM: 10:31 a.m. FINDINGS: Three views of the right foot were obtained. Metatarsals appear intact. Phalanges are intact. Mid foot and hind foot are unremarkable. There is some mild degenerative change at the ankle joint anteriorly. IMPRESSION: No acute bony abnormality is detected. Dictated by: Dictated on workstation # [id number]
== END ==
LOC: RAD 10:21
PROVIDERS: ATTEND Family Medicine
DX: M79.674 Pain in right toe(s) (principal)
CPT/HCPCS: 73630

== ENCOUNTER → 2019-02-11 | Outpatient (CLI) | payer MEDICARE | LOC: RAD 10:00 | PROVIDERS: ATTEND Family Medicine | DX: M54.5 Low back pain (principal); Z53.8 Procedure and treatment not carried out for other reasons ==

== ENCOUNTER → 2019-02-23 | Outpatient (CLI) | payer MEDICARE ==
--- NOTE | 2019-02-23 15:32 | Diagnostic Imaging Report ---
PROCEDURE: CT lumbar spine without contrast. TECHNIQUE: Multiple contiguous axial images were obtained through the lumbar spine without the use of intravenous contrast. Sagittal and coronal reformations were then performed. Auto Exposure Controls were utilized during the CT exam to meet ALARA standards for radiation dose reduction. INDICATION: Back pain for three months with numbness in the right hamstring region. FINDINGS: Curvature of the lumbar spine is normal. Minimal retrolisthesis of L5 on S1 is noted. Vertebral body heights are maintained. No acute compression fracture is seen. There is significant degenerative disc disease at L5-S1 with disc space narrowing and marginal spurring. There is vacuum disc phenomenon at this level. There appears to be significant bilateral neural foraminal stenosis at this level. There is a suggestion of broad-based disc/osteophyte complex indenting the ventral thecal sac and producing central canal stenosis as well. Paraspinous tissues demonstrate the aorta to be calcified but normal in caliber. IMPRESSION: L5-S1 degenerative disc disease with significant bilateral neural foraminal stenosis and moderate central canal stenosis. No acute bony abnormality is detected. Dictated by: Dictated on workstation # [id number]
--- NOTE | 2019-02-23 16:12 | Diagnostic Imaging Report ---
PATIENT HISTORY: RT FOOT PAIN AND SWELLING. TECHNIQUE: Three views of the right foot. COMPARISON: 12/22/2018 FINDINGS: There are mild degenerative changes in the great toe metatarsophalangeal joint. No acute fracture is seen in the right foot. Alignment appears normal. There are mild degenerative changes in the tarsometatarsal joints. 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 There is calcification anterior to the distal tibia, which may represent a joint body or an osteophyte. There is marked soft tissue edema at the dorsal aspect of the forefoot which is new since the prior exam. No soft tissue gas or radiopaque foreign body is seen. IMPRESSION: 1. Marked soft tissue edema at the dorsal aspect of the right foot with no acute osseous abnormality seen. 2. Mild degenerative changes in the right great toe MTP joint. 3. Type III accessory navicular. 4. Calcification anterior to distal tibia is chronic and may be small osteophyte or a joint body. Dictated by: Dictated on workstation # [id number]
== END ==
LOC: RAD 14:47
PROVIDERS: ATTEND Family Medicine
DX: M48.061 Spinal stenosis, lumbar region without neurogenic claudication (principal); M51.37 Other intervertebral disc degeneration, lumbosacral region; M19.071 Primary osteoarthritis, right ankle and foot; M89.9 Disorder of bone, unspecified
CPT/HCPCS: 72131; 73630

== ENCOUNTER 2019-03-24 15:06 | Emergency (ER) | payer MEDICARE ==
[~2019-03-24] VITALS: Ht 172.7 cm; Wt 117.0 kg
--- NOTE | 2019-03-24 16:00 | NUR ---
upgrade to level 1 trauma at this time.
--- NOTE | 2019-03-24 16:08 | ED Trauma-Multisystem ---
General Chief Complaint: Trauma POV Arrival Activation Stated Complaint: FALL,HEAD LAC Nursing Triage Note: pt was walking et fell forward et hit his head on the concrete. Pt states he doesn't know why he fell. Pt is lightheaded and dizzy now. laceration noted to left side of forehead Source of Information: Patient, Family Exam Limitations: No Limitations History of Present Illness Date Seen by Provider: Mar 24, 2019 Time Seen by Provider: 15:56 Initial Comments Patient presents to ER by private conveyance with his family and chief complaint that about an hour prior to arrival he was walking out on his front yard and tripped and had a fall striking the left side of his face above the eyebrow. He did not lose consciousness but he has been acting off ever since. He has been very tired and does not remember the event. He takes Plavix and aspirin and has a history of 11 stents in his heart known to Dr. Gomes and Dr. Carreon. Patient has an cznx-jxk-quffzqk lidocaine patch on his right foot due to chronic right foot pain after a hospitalization event from a year ago. He does not use opiates but he did drink about a third of a can of beer this morning. He smokes about a quarter pack of cigarettes a day. He denies recreational drug use. He denies being sick recently no fever chills nausea vomiting dysuria cough. He d oes have wheezing and mild shortness of breath and uses oxygen to sleep at night. Allergies and Home Medications Allergies Coded Allergies: Penicillins (Verified Allergy, Mild, ITCHING, 11/05/18) ketorolac (Unverified Allergy, Mild, ITCHING, 11/05/18) Home Medications Albuterol Sulfate 18 Gm Hfa.aer.ad, 2 PUFF INH Q4H PRN for SHORTNESS OF BREATH, (Reported) Aspirin 81 Mg Tab.chew, 81 MG PO DAILY, (Reported) Atorvastatin Calcium 40 Mg Tablet, 40 MG PO DAILY Prescribed by: ALFREDO GOMES on 10/23/18 0926 Baclofen 10 Mg Tablet, 10 MG PO TID PRN for MUSCLE SPASMS, (Reported) Cefdinir 300 Mg Capsule, 300 MG PO BID Prescribed by: BC CLAROS on 11/15/18 1359 Clopidogrel Bisulfate 75 Mg Tablet, 75 MG PO DAILY, (Reported) Fluticasone Propionate 16 Gm [place].susp, 2 SPRAYS NS DAILY, (Reported) Fluticasone/Salmeterol 1 Each Blst.w.dev, 1 PUFF IH BID, (Reported) Furosemide 40 Mg Tablet, 40 MG PO DAILY Prescribed by: ALFREDO GOMES on 10/23/18925 Gabapentin 600 Mg Tablet, 600 MG PO TID, (Reported) Hydrocodone Bit/Acetaminophen 1 Ea Tablet, 1-2 EA PO Q6H PRN for PAIN-MODERATE Prescribed by: BC CLAROS on 11/15/18 124 Ipratropium/Albuterol Sulfate 3 Ml Ampul.neb, 3 ML INH RTQ4HR Prescribed by: BC CLAROS on 11/15/18 124 Metoprolol Succinate 50 Mg Tab.er.24h, 50 MG PO DAILY Prescribed by: ALFREDO GOMES on 10/23/18925 Nitroglycerin 0.4 Mg Tab.subl, 0.4 MG SL UD PRN for CHEST PAIN, (Reported) 1 TABLET EVERY 5 MINUTES X 3 DOSES Prednisone 10 Mg Tab.ds.pk, 10 MG PO DAILY Take 6 tabs(60mg)daily,decrease by 1 tab(10MG)daily. Prescribed by: BC CLAROS on 11/15/18 1359 Spironolactone 25 Mg Tablet, 25 MG PO DAILY Prescribed by: ALFREDO GOMES on 10/23/18925 Tiotropium [place] 4 Gm Mist.inhal, 2 PUFF IH DAILY, (Reported) Tramadol HCl 50 Mg Tablet, 50 MG PO TID PRN for PAIN-MILD, (Reported) Valsartan 80 Mg Tablet, 80 MG PO DAILY Prescribed by: ALFREDO GOMES on 10/23/18925 Patient Home Medication List Home Medication List Reviewed: Yes Review of Systems Review of Systems Constitutional: No chills, No diaphoresis Eyes: Denies Blindness, Denies Blurred Vision Ears: Denies Dizziness, Denies Pain Nose: No Bloody Discharge, No Clear Discharge Mouth: No Bloody Discharge, No Clear Discharge Throat: No Aphonia, No Hoarse Respiratory: No cough, No short of breath Cardiovascular: Denies Chest Pain, Denies Edema Past Fufevsh-Gqmgit-Tdithv Hx Patient Social History Alcohol Use: Occasionally Uses Alcohol Beverage of Choice: Beer Recreational Drug Use: No (Hx of) Drug of Choice: "ALL KINDS" WHEN IN 20'S Smoking Status: Current Everyday Smoker Type Used: Cigars, Cigarettes (0.25 ppd) 2nd Hand Smoke Exposure: Yes Recent Foreign Travel: No Contact w/Someone Who Travel: No Recent Infectious Disease Expo: No Recent Hopitalizations: Yes (TROPONIN LEVELS HIGH) Immunizations Up To Date Tetanus Booster (TDap): Less than 5yrs Date of Pneumonia Vaccine: May 10, 2017 Date of Influenza Vaccine: Jul 10, 2018 Seasonal Allergies Seasonal Allergies: No Past Medical History Surgeries: Yes Adenoidectomy, Cardiac, CABG, Coronary Stent, Defibrillator, Open Heart Surgery, Orthopedic, Pacemaker, Tonsillectomy Respiratory: Yes (CONTINUES TO SMOKE) Asthma, Sleep Apnea, COPD Currently Using CPAP: Yes (WEARS OCCASIONALLY) Currently Using BIPAP: No Cardiac: Yes (STENT-2016) Cardiomyopathy, Coronary Artery Disease, Heart Attack, High Cholesterol, Hypertension Neurological: Yes ("Minor stroke") Stroke Reproductive Disorders: No Sexually Transmitted Disease: No HIV/AIDS: No Genitourinary: No Gastrointestinal: No Musculoskeletal: Yes (CHRONIC KNEE PAIN) Degenerate Disk Disease, Arthritis, Chronic Back Pain Endocrine: No HEENT: Yes (READING GLASSES) Loss of Vision: Bilateral Hearing Impairment: Denies Cancer: No Psychosocial: Yes (FROM PAIN) Anxiety Integumentary: No Blood Disorders: No Adverse Reaction/Blood Tranf: No (N/A) Family Medical History Cardiovascular disease 19 MOTHER PATERNAL GRANDMOTHER Completed stroke PATERNAL GRANDFATHER Diabetes mellitus 19 MOTHER Hypertension 19 MOTHER PATERNAL GRANDMOTHER Neoplasm 19 FATHER (LUNG CANCER - AGE 42) MATERNAL GRANDMOTHER (BREAST CANCER) No Pertinent Family Hx Physical Exam Vital Signs Vital Signs - First Documented 03/24/19 03/24/19 15:15 16:27 Temp 99.2 Pulse 82 Resp 20 B/P (MAP) 116/62 (80) Pulse Ox 94 O2 Delivery Room Air Height, Weight, BMI Height: 5'8.00" Weight: 258lbs. 0.0oz. 117.351160qs; 41.6 BMI Method:Stated General Appearance: WD/WN, Other (somnolent) Head: Contusions (over left eyebrow with mild superficial skin breaks totaling about 1 cm), Swelling (above the left eyebrow), Tenderness; No Active Bleeding, No Tan's Sign, No Raccoon Eyes Eyes: Bilateral Eye Normal Inspection, Bilateral Eye PERRL, Bilateral Eye EOMI Ears, Nose, Throat: Hearing Grossly Normal, No Evidence of ENT Injury, No Dental Injury, Other (negative for Tan sign or raccoon eyes) Neck: Full Range of Motion, Normal Inspection Cardiovascular: Regular Rate, Rhythm, No Edema, Normal Peripheral Pulses Respiratory: Chest Non Tender, Lungs Clear, Normal Breath Sounds, No Accessory Muscle Use, No Respiratory Distress Gastrointestinal: Normal Bowel Sounds, No Organomegaly, Non Tender, Soft Extremity: Normal Capillary Refill, Normal Inspection, No Pedal Edema Neurologic/Psychiatric: Alert, Oriented x3, No Motor/Sensory Deficits, Normal Mood/Affect, shipping checker II-XII Norm as Tested, Other (GCS 14, somnolent) Rajan Coma Score Best Eye Response ([place]): (3) Open to Voice Best Verbal Response ([place]): (5) Oriented Best Motor Response ([place]): (6) Obeys Commands Procedures/Interventions Date of ETT Placement: Nov 12, 2018 Wound Location: Face Other Wound Location Above the left eyebrow Wound Length (cm): 1.2 Wound's Depth, Shape: superficial, stellate Wound Explored: clean Irrigated w/ Saline (ccs): 15 Betadine Prep?: Yes (chlorhexidine and sterile saline) Wound Debrided: minimal Other Closure Supply: Wound Adhesive Progress Skin was cleaned with chlorhexidine and then sterile saline and closed with cyanoacrylate. Progress/Results/Core Measures Results/Orders Lab Results Laboratory Tests Test 03/24/19 16:07 Range/Units White Blood Count 7.1 4.3-11.0 10^3/uL Red Blood Count 4.20 L 4.35-5.85 10^6/uL Hemoglobin 12.9 L 13.3-17.7 G/DL Hematocrit 39 L 40-54 % Mean Corpuscular Volume 92 80-99 FL Mean Corpuscular Hemoglobin 31 25-34 PG Mean Corpuscular Hemoglobin Concent 33 32-36 G/DL Red Cell Distribution Width 12.8 10.0-14.5 % Platelet Count 243 130-400 10^3/uL Mean Platelet Volume 9.9 7.4-10.4 FL Sodium Level 137 135-145 MMOL/L Potassium Level 3.8 3.6-5.0 MMOL/L Chloride Level 100 98-107 MMOL/L Carbon Dioxide Level 24 21-32 MMOL/L Anion Gap 13 5-14 MMOL/L Blood Urea Nitrogen 5 L 7-18 MG/DL Creatinine 1.01 0.60-1.30 MG/DL Estimat Glomerular Filtration Rate > 60 BUN/Creatinine Ratio 5 Glucose Level 101 70-105 MG/DL Calcium Level 9.2 8.5-10.1 MG/DL Total Bilirubin 0.3 0.1-1.0 MG/DL Direct Bilirubin 0.1 0.0-0.3 MG/DL Indirect Bilirubin 0.2 MG/DL Aspartate Amino Transf (AST/SGOT) 40 H 5-34 U/L Alanine Aminotransferase (ALT/SGPT) 34 0-55 U/L Alkaline Phosphatase 72 40-136 U/L Total Protein 6.7 6.4-8.2 GM/DL Albumin 4.0 3.2-4.5 GM/DL Serum Alcohol 114 H <10 MG/DL My Orders Orders - ZAIRA,JOSE J Chest 1 View, Ap/Pa Only (03/24/19 16:03) Cbc No Diff (03/24/19 16:03) Basic Metabolic Panel (03/24/19 16:03) Liver Panel (03/24/19 16:03) Alcohol (03/24/19 16:03) Ua Culture If Indicated (03/24/19 16:03) Ekg Tracing (03/24/19 16:03) End Tidal Co2 (03/24/19 16:03) Monitor-Rhythm Ecg Trace Only (03/24/19 16:03) Ed Iv/Invasive Line Start (03/24/19 16:03) Albuterol/Ipra Inhalation Soln (Duoneb I (03/24/19 16:15) Svn Small Volume Nebulizer (03/24/19 16:03) Medications Given in ED Current Medications Medications Dose Ordered Sig/[place] Route Start Time Stop Time Status Last Admin Dose Admin Albuterol/ Ipratropium 3 ml ONCE ONCE INH 03/24/19 16:15 03/24/19 16:16 DC 03/24/19 16:29 3 ML Vital Signs/I&O 03/24/19 03/24/19 03/24/19 15:15 16:27 16:29 Temp 99.2 97.6 Pulse 82 Resp 20 B/P (MAP) 116/62 (80) Pulse Ox 94 95 O2 Delivery Room Air Room Air Room Air Progress Progress Note : Time: 18:06 Progress Note Imaging demonstrates no intracranial hemorrhage. Somnolent secondary to concussion. Concussion counseling given to family. We will encourage him to take him home and get some sleep. Glued the forehead. Initial ECG Impression Date: Mar 24, 2019 Initial ECG Impression Time: 16:29 Initial ECG Rate: 82 Initial ECG Rhythm: Normal Sinus Initial ECG Intervals: QT (486) Initial ECG Impression: Normal, Nonspecific Changes Comment No clinically significant ST elevation or depression. Diagnostic Imaging Diagonstic Imaging: CT (non contrast) Plain Films/CT/US/NM/MRI: c-spine, head Comments NAME: BRAD MIRZA [facility] REC#: [id number] PT STATUS: REG ER : 1960 PHYSICIAN: TIMBO SILVERMAN APRN ADMIT DATE: 03/24/19/ER Draft Date of Exam:03/24/19 CT HEAD/CERVICAL SPINE WO PROCEDURE: CT head and CT cervical spine without contrast. TECHNIQUE: Multiple contiguous axial images were obtained through the brain and cervical spine without the use of intravenous contrast. Sagittal and coronal reformations through the cervical spine were then performed. Auto Exposure Controls were utilized during the CT exam to meet ALARA standards for radiation dose reduction. INDICATION: Fall. COMPARISON: Comparison is made with prior CT head from 03/30/2010. FINDINGS: CT head: The ventricles and sulci are within normal limits. No sulcal effacement or midline shift is identified. No acute intra-axial or extra-axial hemorrhage is seen. Cisterns are patent. Visualized paranasal sinuses demonstrate a mucous retention cyst or polyp in the left maxillary sinus. IMPRESSION: No acute intracranial process is detected. CT cervical spine: Alignment is normal. There is generalized degenerative disc disease, greatest at C4-C5 and C5-C6 levels. No fractures are identified. Odontoid is intact. IMPRESSION: Cervical spondylosis. No acute bony abnormality is detected. Dictated on workstation # [id number] Dict: 03/24/19 1630 Trans: 03/24/19 1636 AS6 [id number] Interpreted by: ZAHEER MUNGUIA MD Electronically signed by: Reviewed: Reviewed by Me Departure Impression Primary Impression: Fall Qualified Codes: W19.XXXA - Unspecified fall, initial encounter Additional Impressions: Concussion Qualified Codes: S06.0X0A - Concussion without loss of consciousness, initial encounter Hematoma Abrasion of forehead Qualified Codes: S00.81XA - Abrasion of other part of head, initial encounter Disposition: 01 HOME, SELF-CARE Condition: Stable Departure-Patient Inst. Decision time for Depature: 18:00 Referrals: LAZARO CARREON DO (PCP/Family) Primary Care Physician Patient Instructions: Concussion, Adult (DC) Add. Discharge Instructions: Expect to be sleepy. Sleep is important for the first day or 2 to help overcome the concussion. Nausea, headache and being off balance are also part of a concussion. A low stimuli environment will reduce concussion symptoms. If you have symptoms then treat them with either Tylenol and ibuprofen for pain or Zofran 1 tablet every 6 hours as needed for nausea. Avoid alcohol, television, cell phones, Internet etc. When you're having no symptoms then you can return to normal activity. If you begin to have symptoms again then you need to go back to resting. Follow-up with primary care as necessary for help managing your concussion symptoms. All discharge instructions reviewed with patient and/or family. Voiced un derstanding. Scripts Ondansetron (Ondansetron Odt) 4 Mg Tab.rapdis 4 MG PO Q6H PRN for NAUSEA/VOMITING, #8 TAB 0 Refills Prov: JOSE MENESES 03/24/19 JOSE MENESES Mar 24, 2019 16:08
[2019-03-24 16:12] LABS: HEMOGLOBIN 12.9 G/DL (13.3-17.7); MEAN PLATELET VOLUME 9.9 FL (7.4-10.4); RED CELL DISTRIBUTION WIDTH 12.8 % (10.0-14.5); WHITE BLOOD COUNT 7.1 10^3/uL (4.3-11.0)
[2019-03-24] MEDS ORDERED: RT-ALBUTEROL/IPRATROPIUM 3 ML (DUONEB) VIAL INH ONE (16:15)
[2019-03-24 16:31] LABS: ALANINE AMINOTRANSFERASE 34 U/L (0-55); ALKALINE PHOSPHATASE 72 U/L (40-136); BILIRUBIN,DIRECT 0.1 MG/DL (0.0-0.3); BILIRUBIN,INDIRECT 0.2 MG/DL; BILIRUBIN,TOTAL 0.3 MG/DL (0.1-1.0); BUN/CREATININE RATIO 5; CALCIUM 9.2 MG/DL (8.5-10.1); CARBON DIOXIDE 24 MMOL/L (21-32); CHLORIDE 100 MMOL/L (98-107); CREATININE SERUM 1.01 MG/DL (0.60-1.30); GFR ESTIMATED > 60; GLUCOSE 101 MG/DL (70-105); POTASSIUM 3.8 MMOL/L (3.6-5.0); SODIUM 137 MMOL/L (135-145); TOTAL PROTEIN 6.7 GM/DL (6.4-8.2)
--- NOTE | 2019-03-24 16:36 | Diagnostic Imaging Report ---
PROCEDURE: CT head and CT cervical spine without contrast. TECHNIQUE: Multiple contiguous axial images were obtained through the brain and cervical spine without the use of intravenous contrast. Sagittal and coronal reformations through the cervical spine were then performed. Auto Exposure Controls were utilized during the CT exam to meet ALARA standards for radiation dose reduction. INDICATION: Fall. COMPARISON: Comparison is made with prior CT head from 03/30/2010. FINDINGS: CT head: The ventricles and sulci are within normal limits. No sulcal effacement or midline shift is identified. No acute intra-axial or extra-axial hemorrhage is seen. Cisterns are patent. Visualized paranasal sinuses demonstrate a mucous retention cyst or polyp in the left maxillary sinus. IMPRESSION: No acute intracranial process is detected. CT cervical spine: Alignment is normal. There is generalized degenerative disc disease, greatest at C4-C5 and C5-C6 levels. No fractures are identified. Odontoid is intact. IMPRESSION: Cervical spondylosis. No acute bony abnormality is detected. Dictated by: Dictated on workstation # [id number]
--- NOTE | 2019-03-24 16:38 | Diagnostic Imaging Report ---
PATIENT HISTORY: Trauma, fall, lightheadedness. TECHNIQUE: Single frontal view of the chest. COMPARISON: Chest x-ray from 11/15/2018. FINDINGS: Lung volumes are normal. No focal consolidation is seen. There is no pleural effusion or pneumothorax. The cardiomediastinal silhouette is normal in size and contour. Sternotomy wires are noted. Left-sided AICD leads appear stable. Overall aeration appears improved compared to 11/15/2018. No displaced fractures are seen. IMPRESSION: No acute pulmonary abnormality. Dictated by: Dictated on workstation # [id number]
--- OUTSIDE RECORDS SUMMARY | 2019-03-24 17:40 | XMS REPORT | Encounter Summary ---
Author Author [facility] Organization [facility] Address Unknown Phone Unavailable Care Team Providers Care Core Shaper Sides Name Role Phone PCP Unavailable Encounter Details Care Team Description Date Type Department 02/23/2019 [facility] [address] [id number] Social History Date Tobacco Use Types Packs/Day Years Used Never Assessed Sex Assigned at Date Recorded Not on file Industry Job Start Date Occupation Not on file Not on file Not on file Travel End Travel History Travel Start No recent travel history available. documented as of this encounter Plan of Treatment Not on filedocumented as of this encounter Procedures Comments Procedure Name Priority Date/Time Associated Diagnosis GENERAL RAD LOWER EXT STAT 02/23/2019 Diagnosis unknown EXTERNAL IMAGING 12:00 AM CDT documented in this encounter Results * GENERAL RAD LOWER EXT EXTERNAL IMAGING (02/23/2019 12:00 AM CDT) Specimen Narrative Performed At This order has been auto finalized and does not contain a result. documented in this encounter Visit Diagnoses Not on filedocumented in this encounter
--- OUTSIDE RECORDS SUMMARY | 2019-03-24 17:40 | XMS REPORT | Clinical Summary ---
Author Author [facility] Organization [facility] Address Unknown Phone Unavailable Care Team Providers Care Medical Management Trainer Name Role Phone No Pcp, Na PCP Unavailable Source Comments Some departments are not documenting in the electronic medical record. If you d o not see the information that you expected, contact Release of Information in [facility] Information Management department at [phone] for further assistan ce in locating additional records.[facility] Allergies Comments Active Allergy Reactions Severity Noted Date Penicillins ITCHING Low 03/03/2019 Medications Not on file Active Problems Not on file Encounters Care Team Description Date Type Specialty Deepak Nelson DO 03/03/2019 Emergency Emergency Medicine 02/23/2019 Hospital Radiology Encounter from Last 3 Months Social History Date Tobacco Use Types Packs/Day Years Used Current Every Day Smoker Drinks/Week oz/Week Comments Alcohol Use Yes Sex Assigned at Date Recorded Not on file Industry Job Start Date Occupation Not on file Not on file Not on file Travel End Travel History Travel Start No recent travel history available. Last Filed Vital Signs Reading Time Taken Comments Vital Sign 144/73 03/03/2019 12:00 PM CDT Blood Pressure 69 03/03/2019 12:01 PM CDT Pulse 36.9 C (98.4 F) 03/03/2019 7:03 AM CDT Temperature - - Respiratory Rate 100% 03/03/2019 12:01 PM CDT Oxygen Saturation - - Inhaled Oxygen Concentration 117.9 kg (260 lb) 03/03/2019 7:03 AM CDT Weight - - Height - - Body Mass Index Plan of Treatment Health Maintenance Due Date Last Done Comments HEPATITIS C SCREENING 1961 PHYSICAL (COMPREHENSIVE) 1968 EXAM HIV SCREENING 1976 DTAP/TDAP VACCINES (1 - 1979 Tdap) COLORECTAL CANCER 2011 SCREENING SHINGLES RECOMBINANT 2011 VACCINE (1 of 2) INFLUENZA VACCINE 06/09/2019 Procedures Comments Procedure Name Priority Date/Time Associated Diagnosis CT LOWER EXTREM WO CONT STAT 03/03/2019 RIGHT 11:03 AM CDT US DOPPLER VENOUS W EXTRM STAT 03/03/2019 RIGHT 9:29 AM CDT COMPREHENSIVE METABOLIC STAT 03/03/2019 PANEL 8:00 AM CDT CBC AND DIFF STAT 03/03/2019 8:00 AM CDT C REACTIVE PROTEIN (CRP) STAT 03/03/2019 8:00 AM CDT SED RATE STAT 03/03/2019 8:00 AM CDT GENERAL RAD LOWER EXT STAT 02/23/2019 Diagnosis unknown EXTERNAL IMAGING 12:00 AM CDT from Last 3 Months Results * CT LOWER EXTREM WO CONT RIGHT (03/03/2019 11:03 AM CDT) Specimen Right Impressions Performed At 1.No acute osseous abnormality of the right foot. 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 3.Moderate arthrosis of the first MTP joint, with some articular cystic change and joint space narrowing. 4.If there is ongoing concern for infection, MRI without and with contrast would be more sensitive for evaluation of bone marrow. Finalized by Oh Arizmendi M.D. on 03/03/2019 11:56 AM. Dictated by Oh Arizmendi M.D. on 03/03/2019 11:33 AM. Narrative Performed At CT right lower extremity. [facility] RES[facility] Comparison: Right foot radiographs from 02/23/2019. Clinical indication: 58-year-old male with right foot and ankle pain. Technique: Multiple consecutive thin section CT images of the right lower extremity were acquired without contrast. Coronal and sagittal reformatted images were created from the raw data. 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 Small ankle joint effusion. A few bodies are noted anteriorly along the anterior ankle joint recess at the tibial plafond and (series 602/53). Mild subtalar joint arthrosis. Mild osteoarthritis of the first MTP joint. Minimal spurring of the dorsal navicular bone. Soft tissues: Moderate soft tissue swelling and skin thickening along the dorsal mid foot is nonspecific but could be seen with edema, inflammation, or infection. Tendons and ligaments: Minimal distal Achilles tendinosis, with mild enthesopathy along the Achilles calcaneal enthesis. Peroneus longus and brevis are unremarkable. Flexor tendons are within normal limits. Extensor tendons are within normal limits. Tarsal tunnel appears preserved, with surrounding fat intact. Sinus tarsi has preserved fat. Findings were discussed with Efrain Gerber M.D. at 11:56 AM on 03/03/2019. Procedure Note Interface, Radiant Results - 03/03/2019 12:[address] right lower extremity. Comparison: Right foot radiographs from 02/23/2019. Clinical indication: 58-year-old male with right foot and ankle pain. Technique: Multiple consecutive thin section CT images of the right lower extremity were acquired without contrast. Coronal and sagittal reformatted images were created from the raw data. 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 Small ankle joint effusion. A few bodies are noted anteriorly along the anterior ankle joint recess at the tibial plafond and (series 602/53). Mild subtalar joint arthrosis. Mild osteoarthritis of the first MTP joint. Minimal spurring of the dorsal navicular bone. Soft tissues: Moderate soft tissue swelling and skin thickening along the dorsal mid foot is nonspecific but could be seen with edema, inflammation, or infection. Tendons and ligaments: Minimal distal Achilles tendinosis, with mild enthesopathy along the Achilles calcaneal enthesis. Peroneus longus and brevis are unremarkable. Flexor tendons are within normal limits. Extensor tendons are within normal limits. Tarsal tunnel appears preserved, with surrounding fat intact. Sinus tarsi has preserved fat. Findings were discussed with Efrain Gerber M.D. at 11:56 AM on 03/03/2019. IMPRESSION 1. No acute osseous abnormality of the right foot. 2. 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 3. Moderate arthrosis of the first MTP joint, with some articular cystic change and joint space narrowing. 4. If there is ongoing concern for infection, MRI without and with contrast would be more sensitive for evaluation of bone marrow. Finalized by Oh Arizmendi M.D. on 03/03/2019 11:56 AM. Dictated by Oh Arizmendi M.D. on 03/03/2019 11:33 AM. Performing Organization Address City/State/Zipcode Phone Number [facility] RESULTS * US DOPPLER VENOUS W EXTRM RIGHT (03/03/2019 9:29 AM CDT) Specimen Right Impressions Performed At 1.No femoral/popliteal deep venous thrombosis in the right lower extremity. [facility] 2.Moderate subcutaneous edema in the right ankle and foot. Approved by Heather Oates M.D. on 03/03/2019 9:40 AM By my electronic signature, I attest that I have personally reviewed the images for this examination and formulated the interpretations and opinions expressed in this report Finalized by Christina Whittaker M.D. on 03/03/2019 11:09 AM. Dictated by Heather Oates M.D. on 03/03/2019 9:39 AM. Narrative Performed At RIGHT LOWER EXTREMITY VENOUS DOPPLER ULTRASOUND [facility] RESULTS CLINICAL INDICATION: Male, 58 years; right foot swelling TECHNIQUE: Multiple grayscale, color Doppler and spectral Doppler ultrasound images were obtained of the right lower extremity for evaluation of the peripheral veins. COMPARISON: None FINDINGS: The right common femoral, upper saphenous, deep femoral, femoral, and popliteal veins are patent and fully compressible without focal narrowing.Visualized portions of the trifurcation veins are patent. Moderate subcutaneous edema in the right ankle and foot. No soft tissue mass or loculated fluid collection is identified within visualized portions of the leg. Procedure Note Interface, Radiant Results - 03/03/2019 11:12 AM CDT RIGHT LOWER EXTREMITY VENOUS DOPPLER ULTRASOUND CLINICAL INDICATION: Male, 58 years; right foot swelling TECHNIQUE: Multiple grayscale, color Doppler and spectral Doppler ultrasound images were obtained of the right lower extremity for evaluation of the peripheral veins. COMPARISON: None FINDINGS: The right common femoral, upper saphenous, deep femoral, femoral, and popliteal veins are patent and fully compressible without focal narrowing. Visualized portions of the trifurcation veins are patent. Moderate subcutaneous edema in the right ankle and foot. No soft tissue mass or loculated fluid collection is identified within visualized portions of the leg. IMPRESSION 1. No femoral/popliteal deep venous thrombosis in the right lower extremity. 2. Moderate subcutaneous edema in the right ankle and foot. Approved by Heather Oates M.D. on 03/03/2019 9:40 AM By my electronic signature, I attest that I have personally reviewed the images for this examination and formulated the interpretations and opinions expressed in this report Finalized by Christina Whittaker M.D. on 03/03/2019 11:09 AM. Dictated by Heather Oates M.D. on 03/03/2019 9:39 AM. Performing Organization Address City/[facility]/Zipcode Phone Number RAD RESULTS * SED RATE (03/03/2019 8:00 AM CDT) [facility] Sed Rate -ESR 36 (H) 0 - 20 MM/HR MAIN LAB Specimen Blood Performing Organization Address City/[facility]/Zipcode Phone Number MAIN LAB [address] [place] [address] * CBC AND DIFF (03/03/2019 8:00 AM CDT) [facility] White Blood 6.3 4.5 - 11.0 K/UL [facility] Cells RBC 4.20 (L) 4.4 - 5.5 M/UL [facility] Hemoglobin 13.2 (L) 13.5 - 16.5 GM/DL [facility] Hematocrit 40.3 40 - 50 % [facility] MCV 96.1 80 - 100 FL [facility] MCH 31.5 26 - 34 PG [facility] MCHC 32.7 32.0 - 36.0 G/DL [facility] RDW 15.1 (H) 11 - 15 % [facility] Platelet Count 200 150 - 400 K/UL [facility] MPV 8.6 7 - 11 FL [facility] Neutrophils 65 41 - 77 % [facility] Lymphocytes 24 24 - 44 % [facility] Monocytes 6 4 - 12 % [facility] Eosinophils 4 0 - 5 % [facility] Basophils 1 0 - 2 % [facility] Absolute 4.10 1.8 - 7.0 K/UL [facility] Neutrophil Count Absolute Lymph 1.50 1.0 - 4.8 K/UL [facility] Count Absolute 0.40 0 - 0.80 K/UL [facility] Monocyte Count Absolute 0.30 0 - 0.45 K/UL [facility] Eosinophil Count Absolute 0.00 0 - 0.20 K/UL [facility] Basophil Count Specimen Blood Performing Organization Address City/[facility] Phone Number [facility] [address] [place] [address] * C REACTIVE PROTEIN (CRP) (03/03/2019 8:00 AM CDT) C-Reactive 0.65 <1.0 MG/DL [facility] Protein Specimen Blood Performing Organization Address [facility] Phone Number MA[facility] LAB [address] [place] [address] * COMPREHENSIVE METABOLIC PANEL (03/03/2019 8:00 AM CDT) Sodium 139 137 - 147 MMOL/L [facility] Potassium 3.9 3.5 - 5.1 MMOL/L [facility] Chloride 105 98 - 110 MMOL/L [facility] Glucose 106 (H) 70 - 100 MG/DL [facility] Blood Urea 6 (L) 7 - 25 MG/DL [facility] Nitrogen Creatinine 0.67 0.4 - 1.24 MG/DL [facility] Calcium 9.4 8.5 - 10.6 MG/DL [facility] Total Protein 6.6 6.0 - 8.0 G/DL [facility] Total Bilirubin 0.6 0.3 - 1.2 MG/DL [facility] Albumin 3.8 3.5 - 5.0 G/DL [facility] Alk Phosphatase 57 25 - 110 U/L [facility] AST (SGOT) 37 7 - 40 U/L [facility] CO2 26 21 - 30 MMOL/L [facility] ALT (SGPT) 21 7 - 56 U/L [facility] Anion Gap 8 3 - 12 [facility] eGFR Non >60 >60 mL/min [facility] Comment: [place] The eGFR is not validated for use in drug dosing adjustments.Continue to use estimated creatinine clearance per dosing reference text.Please contact the Clinical Pharmacist for questions. eGFR >60 >60 mL/min [facility] [place] Comment: The eGFR is not validated for use in drug dosing adjustments.Continue to use estimated creatinine clearance per dosing reference text.Please contact the Clinical Pharmacist for questions. Specimen Blood Performing Organization Address City/State/Zipcode Phone Number MAIN LAB [address] [place] [address] * GENERAL RAD LOWER EXT EXTERNAL IMAGING (02/23/2019 12:00 AM CDT) Specimen Narrative Performed At This order has been auto finalized and does not contain a result. 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
--- OUTSIDE RECORDS SUMMARY | 2019-03-24 17:40 | XMS REPORT | Encounter Summary ---
Author Author [facility] Organization [facility] Address Unknown Phone Unavailable Care Team Providers Care Research Administrator Name Role Phone No Pcp, Na PCP Unavailable Reason for Visit * Reason Comments Foot Swelling R foot x 3 months, couldn't deal w/ pain. Encounter Details Care Team Description Date Type Department Leslie DeepakDO [address] [facility] [place] [address] 03/03/2019 Emergency The [facility] [address] [place] [address] Social History Date Tobacco Use Types Packs/Day Years Used Current Every Day Smoker Drinks/Week oz/Week Comments Alcohol Use Yes Sex Assigned at Date Recorded Not on file Industry Job Start Date Occupation Not on file Not on file Not on file Travel End Travel History Travel Start No recent travel history available. documented as of this encounter Last Filed Vital Signs Reading Time Taken [...] - Height - - Body Mass Index documented in this encounter Functional Status Date of Assessment Functional Status Response 03/03/2019 Does the patient have a hearing impairment: No documented as of this encounter Discharge Instructions * Instructions* Efrain Gerber MD - 03/03/2019 You were seen for a painful swollen foot. You do not have a blood clot. You do not have any fracture bones. CT indicates that you have significant osteoarthr itis in your foot. Please follow-up with orthopedic surgery regarding your foot . Please follow-up with your family physician regarding increased pain medicati on as well as managing medications for your insomnia. * Attachments The following attachments cannot be sent through Care Everywhere.* Osteoarthritis, What Is (MONGOLIAN) documented in this encounter ED Notes * Arlene Barahona - 03/03/2019 12:16 PM CDT Pt appropriate to d/c home; self care. Discharge paperwork and education reviewe d with pt. He verbalized understanding. IV removed; hemostasis achieved. Pt d/c to personal vehicle accompanied by family members. No further questions regardin g d/c at this time. * Deepak Nelson DO - 03/03/2019 11:24 AM CDT Tom Warren is a 58 y.o. male. Chief Complaint: Chief Complaint Patient presents with Foot Swelling R foot x 3 months, couldn't deal w/ pain. History of Present Illness: 58-year-old male with extensive cardiac history and COPD coming to the ED for co ncern of right foot pain for the past 3 months. Patient reports that he went in to respiratory arrest during bronchoscopy for hemoptysis in December. Patient spen t 2 weeks in ICU in [facility]. Patient reports that he had right leg swelling from thigh down. Patient reports swelling has resolved except for his right foot. Patient reports he has seen podiatry in [place] he did arthrocen tesis on his MTP joint. He was told that arthrocentesis only indicated arthriti s and was negative for gout. Patient has x-rays of the foot from 6 days ago. P atient reports that there is pain when walking. Patient reports the pain is wor se in his first MTP joint, arch, and calf. Patient denies prior history of bloo d clots. Patient denies any change from baseline chest pain or shortness of boni ath. Review of Systems: Review of Systems Constitutional: Negative for chills and fever. HENT: Negative for trouble swallowing. Eyes: Negative for photophobia and visual disturbance. Respiratory: Negative for cough and shortness of breath. Cardiovascular: Negative for chest pain and palpitations. Gastrointestinal: Negative for abdominal pain, blood in stool, diarrhea, nausea and vomiting. Genitourinary: Negative for dysuria and hematuria. Musculoskeletal: Positive for arthralgias and joint swelling. Negative for back pain. Skin: Negative for rash. Neurological: Negative for dizziness, weakness, light-headedness and numbness. Hematological: Does not bruise/bleed easily. Psychiatric/Behavioral: Negative for confusion. Allergies: Pcn [penicillins] Past Medical History: Medical History: Diagnosis Date Congestive heart disease (HCC) COPD (chronic obstructive pulmonary disease) (HCC) Past Surgical History: History reviewed. No pertinent surgical history. Medical History: Diagnosis Date Congestive heart disease (HCC) COPD (chronic obstructive pulmonary disease) (HCC) History reviewed. No pertinent surgical history. Social History: Social History Tobacco Use Smoking status: Current Every Day Smoker Substance Use Topics Alcohol use: Yes Drug use: Never Social History Substance and Sexual Activity Drug Use Never Family History: No family history on file. Vitals: ED Vitals Date and Time T BP P RR SPO2P SPO2 User 03/03/19 1201 -- -- 69 12 PER MINUTE 69 100 % NR 03/03/19 1200 -- 144/73 64 21 PER MINUTE -- -- NR 03/03/19 1030 -- 141/59 61 17 PER MINUTE -- -- NR 03/03/19 1029 -- -- 62 18 PER MINUTE 65 100 % NR 03/03/19 1005 -- -- 64 15 PER MINUTE 64 99 % NR 03/03/19 1000 -- 141/72 63 -- -- -- NR 03/03/19 0830 -- 152/84 61 15 PER MINUTE 60 98 % NR 03/03/19 0800 -- 128/75 62 23 PER MINUTE 59 98 % NR 03/03/19 0703 36.9 C (98.4 F) 115/68 -- 20 PER MINUTE 77 98 % LW Physical Exam: Physical Exam Constitutional: He is oriented to person, place, and time. He appears well-devel oped and well-nourished. HENT: Head: Normocephalic. Eyes: No scleral icterus. Neck: No JVD present. Cardiovascular: Normal rate, regular rhythm and normal heart sounds. Pulmonary/Chest: Effort normal and breath sounds normal. No stridor. Abdominal: Soft. He exhibits no distension. There is no tenderness. Musculoskeletal: He exhibits no edema. Right foot generalized edema. Patient noted to have tenderness in right calf. Patient noted to have right arch and right MTP tenderness. Neurological: He is alert and oriented to person, place, and time. Skin: Skin is warm and dry. No pallor. Psychiatric: He has a normal mood and affect. His behavior is normal. Judgment a nd thought content normal. Nursing note and vitals reviewed. Laboratory Results: Labs Reviewed SED RATE - Abnormal Result Value Ref Range Status Sed Rate -ESR 36 (*) 0 - 20 MM/HR Final CBC AND DIFF - Abnormal White Blood Cells 6.3 4.5 - 11.0 K/UL Final RBC 4.20 (*) 4.4 - 5.5 M/UL Final Hemoglobin 13.2 (*) 13.5 - 16.5 GM/DL Final Hematocrit 40.3 40 - 50 % Final MCV 96.1 80 - 100 FL Final MCH 31.5 26 - 34 PG Final MCHC 32.7 32.0 - 36.0 G/DL Final RDW 15.1 (*) 11 - 15 % Final Platelet Count 200 150 - 400 K/UL Final MPV 8.6 7 - 11 FL Final Neutrophils 65 41 - 77 % Final Lymphocytes 24 24 - 44 % Final Monocytes 6 4 - 12 % Final Eosinophils 4 0 - 5 % Final Basophils 1 0 - 2 % Final Absolute Neutrophil Count 4.10 1.8 - 7.0 K/UL Final Absolute Lymph Count 1.50 1.0 - 4.8 K/UL Final Absolute Monocyte Count 0.40 0 - 0.80 K/UL Final Absolute Eosinophil Count 0.30 0 - 0.45 K/UL Final Absolute Basophil Count 0.00 0 - 0.20 K/UL Final COMPREHENSIVE METABOLIC PANEL - Abnormal Sodium 139 137 - 147 MMOL/L Final Potassium 3.9 3.5 - 5.1 MMOL/L Final Chloride 105 98 - 110 MMOL/L Final Glucose 106 (*) 70 - 100 MG/DL Final Blood Urea Nitrogen 6 (*) 7 - 25 MG/DL Final Creatinine 0.67 0.4 - 1.24 MG/DL Final Calcium 9.4 8.5 - 10.6 MG/DL Final Total Protein 6.6 6.0 - 8.0 G/DL Final Total Bilirubin 0.6 0.3 - 1.2 MG/DL Final Albumin 3.8 3.5 - 5.0 G/DL Final Alk Phosphatase 57 25 - 110 U/L Final AST (SGOT) 37 7 - 40 U/L Final CO2 26 21 - 30 MMOL/L Final ALT (SGPT) 21 7 - 56 U/L Final Anion Gap 8 3 - 12 Final eGFR Non >60 >60 mL/min Final eGFR >60 >60 mL/min Final C REACTIVE PROTEIN (CRP) C-Reactive Protein 0.65 <1.0 MG/DL Final Radiology Interpretation: CT LOWER EXTREM WO CONT RIGHT Final Result 1. No acute osseous abnormality of the right foot. 2. Moderate to severe tibiotalar joint arthrosis with posterior joint space sergo rowing and subarticular cystic change. 3. Moderate arthrosis of the first MTP joint, with some articular cystic change and joint space narrowing. 4. If there is ongoing concern for infection, MRI without and with contrast wou ld be more sensitive for evaluation of bone marrow. Finalized by Oh Arizmendi M.D. on 03/03/2019 11:56 AM. Dictated by Oh carrasco M.D. on 03/03/2019 11:33 AM. US DOPPLER VENOUS W EXTRM RIGHT Final Result 1. No femoral/popliteal deep venous thrombosis in the right lower extremity. 2. Moderate subcutaneous edema in the right ankle and foot. Approved by Heather Oates M.D. on 03/03/2019 9:40 AM By my electronic signature, I attest that I have personally reviewed the images for this examination and formulated the interpretations and opinions expressed i n this report Finalized by Christina Whittaker M.D. on 03/03/2019 11:09 AM. Dictated by Heather naik M.D. on 03/03/2019 9:39 AM. GENERAL RAD LOWER EXT EXTERNAL IMAGING Final Result EKG: ED Course: Concern for patient includes but not limited to DVT, gout, injury. Right lower extremity ultrasound was unremarkable for DVT. Patient's images were uploaded w ith verbal read by radiology medicated osteoarthritic changes only in the foot. CT confirmed osteoarthritic changes only with narrow joint spaces without tophi . Patient was discharged with follow-up with orthopedics. Patient was instruct ed to follow-up with PCP for increased pain control and with insomnia. Coding Facility Administered Meds: Medications - No data to display Clinical Impression: Clinical Impression Primary osteoarthritis of right foot Disposition/Follow up ED Disposition ED Disposition Discharge Family physician at [facility] in [place], [place]. Call Call your family physician for adjustments to your pain medication as well as ma naging medications for insomnia. Dpt Eliceo, Orthopedic Surgery [address] [facility] [address] Call Please tell them that CT images from the emergency department are in for your fo ot. Medications: There are no discharge medications for this patient. Procedure Notes: Procedures Attestation / Supervision: Efrain Gerber MD ATTESTATION I personally observed the resident performing the E/M, discussed case with resid ent, and concur with resident documentation of history, physical assessment and treatment plan unless otherwise noted. Staff name: Deepak Nelson DO Date: 03/04/2019 * Arlene Barahona - 03/03/2019 7:21 AM CDT Tom Warren, 58 y/o M, presents to ED room 34 cc right foot swelling/pain. Pt reports he was referred to the ER by his PCP. He has history of CHF, multiple c ardiac stents, and COPD. He describes the right foot pain as sharp, constant, pi ns and needles. He denies recent injury to the foot. The pt reports history of a respiratory arrest causing mild nerve damage. He denies history of diabetes. Hi s right foot is noticeable more swollen than his left. He has 1-2+ pitting edema in the right foot. There is no warmth or redness. Pt is on Plavix. Medical History: Diagnosis Date Congestive heart disease (HCC) COPD (chronic obstructive pulmonary disease) (HCC) He is AAOx4, VSS, cart in low locked position, call light within reach, awaiting evaluation from treatment team. Belongings: Glasses Sandals Shirt Shorts Cell phone Wallet (with Aunt) All belongings at pt bedside documented in this encounter Plan of Treatment Order Schedule Name Type Priority Associated Diagnoses ONE TIME for 1 Occurrences starting 03/03/2019 until 03/03/2019, 1 completed GENERAL RAD LOWER EXT Imaging STAT Diagnosis unknown EXTERNAL IMAGING documented as of this encounter Procedures Comments Procedure Name Priority Date/Time Associated Diagnosis CT LOWER EXTREM WO CONT STAT 03/03/2019 RIGHT 11:03 AM CDT US DOPPLER VENOUS W EXTRM STAT 03/03/2019 RIGHT 9:29 AM CDT SED RATE STAT 03/03/2019 8:00 AM CDT CBC AND DIFF STAT 03/03/2019 8:00 AM CDT C REACTIVE PROTEIN (CRP) STAT 03/03/2019 8:00 AM CDT COMPREHENSIVE METABOLIC STAT 03/03/2019 PANEL 8:00 AM CDT GENERAL RAD LOWER EXT STAT 02/23/2019 Diagnosis unknown EXTERNAL IMAGING 12:00 AM CDT documented in this encounter Results * CT LOWER EXTREM WO CONT [...] and talar subchondral cystic change with near [id number] articulation (series 602/42). Small ankle joint effusion. [...] and talar subchondral cystic change with near [id number] articulation (series 602/42). Small ankle joint effusion. [...] on 03/03/2019 9:39 AM. Performing Organization Address City/State/Zipcode Phone Number [facility] RESULTS * COMPREHENSIVE METABOLIC PANEL (03/03/2019 8:00 AM [...] >60 >60 mL/min [facility] Comment: [place] The eGFR is not validated for use in drug dosing adjustments.Continue to use estimated creatinine clearance per dosing reference text.Please contact the Clinical Pharmacist for questions. eGFR >60 >60 mL/min [facility] [place] Comment: The eGFR is not validated for use in drug dosing adjustments.Continue to use estimated creatinine clearance per dosing reference text.Please contact the Clinical Pharmacist for questions. Specimen Blood Performing Organization Address City/State/Zipcode Phone Number [facility] [address] [place] [address] * CBC AND DIFF (03/03/2019 8:00 AM CDT) White Blood 6.3 4.5 - 11.0 K/UL [...] Basophil Count Specimen Blood Performing Organization Address City/[facility]/Zipcode Phone Number [facility] [address] [place] [address] * C REACTIVE PROTEIN (CRP) (03/03/2019 8:00 AM CDT) C-Reactive 0.65 <1.0 MG/DL [facility] Protein Specimen Blood Performing Organization Address City/[facility]/Zipcode Phone Number [facility] [address] [place] [address] * SED RATE (03/03/2019 8:00 AM CDT) Sed Rate -ESR 36 (H) 0 - 20 MM/HR [facility] Specimen Blood Performing Organization Address City/State/Zipcode Phone Number [facility] [address] [place] [address] * GENERAL RAD LOWER EXT EXTERNAL IMAGING (02/23/2019 12:00 AM CDT) Specimen Narrative Performed At This order has been auto finalized and does not contain a result. documented in this encounter Visit Diagnoses Diagnosis Primary osteoarthritis of right foot - Primary Diagnosis unknown Other unknown and unspecified cause of morbidity or mortality documented in this encounter Administered Medications Action Date Dose Rate Site Medication Order MAR Action 03/03/2019 12:07 PM CDT 1 patch Foot, Right lidocaine (LIDODERM) 5 % topical patch 1 Patch/Topica patch l Applied 1 patch, Topical, Administer over 12 Hours, ONCE, 1 dose, Tu 03/03/19 at 1215, NURSING PLEASE NOTE: Apply patch ONCE DAILY to foot and REMOVE after designated duration. Apply only to intact skin. Patch may be cut to fit affected area., documented in this encounter
--- OUTSIDE RECORDS SUMMARY | 2019-03-24 17:40 | XMS REPORT | Clinical Summary ---
Author Author [facility] Organization [facility] Address Unknown Phone Unavailable Care Team Providers Care Refractory Bricklayer Name Role Phone PCP Unavailable Allergies Not [...]
--- OUTSIDE RECORDS SUMMARY | 2019-03-24 17:41 | XMS REPORT ---
Author Author Migration, Doctor Organization [facility] Address Unknown Phone Unavailable Care Team Providers Care Passenger Attendant Name Role Phone Migration, Doctor Unavailable Unavailable PROBLEMS Type Condition ICD9-CM Code [id number] Code Onset Dates Condition Status SNOMED Code Problem Family history of diabetes mellitus V18.0 Active 175431896 Problem Need for prophylactic vaccination and inoculation, Influenza V04.81 Active 788744045 Problem Syncope and collapse 780.2 Active 307775456 Problem Other chronic pain 338.29 Active 09438720 Problem Obstructive sleep apnea (adult) (pediatric) 327.23 Active 97297975 Problem Unspecified pruritic disorder 698.9 Active 878807884 Problem Asthma, unspecified, unspecified status 493.90 Active 50103747 Problem Coronary atherosclerosis of unspecified type of vessel, [place] or graft 414.00 Active 159894011 Problem Carpal tunnel syndrome 354.0 Active 84380244 ALLERGIES No Information ENCOUNTERS Encounter Location Date Diagnosis [facility] [address] [id number] Jun, Caries K02.9 [facility] [address] [address] Mar, [facility] [address] [id number] Mar, Dental examination Z01.20 [facility] [address] [address] January, [facility] [address] [id number] Aug, Dental caries K02.9 [facility] [address] [id number] Aug, [facility] [address] [id number] Aug, [facility] [address] [facility] [id number] [place] [id number] Aug, [facility] [address] [id number] [place] [id number] Aug, Dental examination Z01.20 [facility] [address] [id number] [place] [address] 14 Dec, 2014 [facility] [address] [id number] [place] [address] Dec, [facility] [address] [id number] [place] [address] May, [facility] [address] [id number] [place] [address] May, [facility] [address] [id number] [place] [address] Apr, [facility] [address] [id number] [place] [address] Apr, [facility] [address] [id number] [place] [address] Apr, [facility] [address] [id number] [place] [address] Apr, [facility] [address] [id number] [place] [address] Apr, [facility] [address] [id number] [place] [address] Mar, [facility] [place] [facility] [address] [id number] [place] [address] Mar, [facility] [place] [facility] [address] [id number] [place] [address] Mar, [facility] [place] [facility] [address] [id number] [place] [address] Mar, [facility] [place] [facility] [address] [id number] [place] [address] Mar, [facility] [place] [facility] [address] [id number] [place] [address] Mar, [facility] [place] [facility] [address] [id number] [place] [address] Mar, [facility] [place] [facility] [address] [id number] [place] [address] Mar, [facility] [place] [facility] [address] [id number] [place] [address] Feb, [facility] [place] [facility] [address] [id number] [place] [address] Feb, [facility] [place] [facility] [address] [id number] [place] [address] January, [facility] [place] [facility] [address] [id number] [place] [address] January, [facility] [place] [facility] [address] [id number] [place] [address] Dec, [facility] [place] [facility] [address] [id number] [place] [address] Dec, [facility] [place] [facility] [address] [id number] [place] [address] Dec, [facility] [place] [facility] [address] [id number] [place] [address] Dec, [facility] [place] [facility] [address] [id number] [place] [address] Dec, [facility] [place] [facility] [address] [id number] [place] [address] Dec, [facility] [place] [facility] [address] [id number] [place] [address] Nov, [facility] [place] [facility] [address] [id number] [place] [address] Nov, [facility] [place] [facility] [address] [id number] [place] [address] 11 Nov, 2013 [facility] [place] [facility] [address] [id number] [place] [address] 11 Nov, 2013 [facility] [place] [facility] [address] [id number] [place] [address] Nov, [facility] [place] [facility] [address] [id number] [place] [address] Nov, [facility] [place] [facility] [address] [id number] [place] [address] Nov, [facility] [place] [facility] [address] [id number] [place] [address] Nov, [facility] [place] [facility] [address] [id number] [place] [address] Nov, [facility] [place] [facility] [address] [id number] [place] [address] Oct, [facility] [place] [facility] [address] [id number] [place] [address] Oct, [facility] [place] [facility] [address] [id number] [place] [address] Sep, [facility] [place] [facility] [address] [id number] [place] [address] Sep, [facility] [place] [facility] [address] [id number] [place] [address] Sep, [facility] [place] [facility] [address] [id number] [place] [address] Sep, [facility] [place] [facility] [address] [id number] [place] [address] Aug, [facility] [place] [facility] [address] [id number] [place] [address] Aug, [facility] [place] [facility] [address] [id number] [place] [address] Aug, [facility] [place] [facility] [address] [id number] [place] [address] Jul, [facility] [place] [facility] [address] [id number] [place] [address] Jul, [facility] [place] [facility] [address] [id number] [place] [address] Jul, [facility] [place] [facility] [address] [id number] [place] [address] Jul, [facility] [place] [facility] [address] [id number] [place] [address] Jul, [facility] [place] [facility] [address] [id number] [place] [address] Jun, [facility] [place] [facility] [address] [id number] [place] [address] Jun, [facility] [place] [facility] [address] [id number], [place] [address] Jun, [facility] [place] [facility] [address] [id number] [place] [address] Jun, [facility] [place] [facility] [address] [id number], [place] [address] Jun, [facility] [place] [facility] [address] [id number], [place] [address] Jun, [facility] [place] [facility] [address] [id number], [place] [address] Jun, [facility] [place] [facility] [address] [id number], [place] [address] Jun, [facility] [place] [facility] [address] [id number], [place] [address] Jun, [facility] [place] [facility] [address] [id number], [place] [address] Jun, [facility] [place] [facility] [address] [id number], [place] [address] Jun, [facility] [address] [id number] [place] [address] Jun, [facility] [place] [facility] [address] [id number] [place] [address] Jun, [facility] [place] [facility] [address] [id number] [place] [address] May, [facility] [place] [facility] [address] [id number] [place] [address] May, [facility] [address] [id number] [place] [address] May, [facility] [place] [facility] [address] [id number] [place] [address] May, [facility] [address] [id number] [place] [address] Apr, [facility] [place] [facility] [address] [id number] [place] [address] Apr, [facility] [address] [id number] [place] [address] Apr, [facility] [place] [facility] [address] [id number] [place] [address] Mar, [facility] [place] [facility] [address] [id number], [place] [address] January, [facility] [place] [facility] [address] [id number], [place] [address] January, [facility] [place] [facility] [address] [id number] [place] [address] January, [facility] [place] [facility] [address] [id number] [place] [address] Dec, [facility] [place] [facility] [address] [id number] [place] [address] Dec, [facility] [place] [facility] [address] [id number] [place] [address] 15 Nov, 2012 [facility] [place] [facility] [address] [id number] [place] [address] 05 Nov, 2012 [facility] [place] [facility] [address] [id number] [place] [address] 13 Oct, 2012 [facility] [place] [facility] [address] [id number] [place] [address] 05 Oct, 2012 [facility] [place] [facility] [address] [id number] [place] [address] Aug, [facility] [place] [facility] [address] [id number] [place] [address] Aug, [facility] [place] [facility] [address] [id number] [place] [address] Aug, [facility] [place] [facility] [address] [id number] [place] [address] Aug, [facility] [place] [facility] [address] [id number] [place] [address] Aug, [facility] [place] [facility] [address] [id number] [place] [address] Aug, [facility] [place] [facility] [address] [id number] [place] [address] Jun, [facility] [place] [facility] [address] [id number] [place] [address] Jun, [facility] [place] [facility] [address] [id number] [place] [address] May, [facility] [place] [facility] [address] [id number] [place] [address] May, [facility] [place] [facility] [address] [id number] [place] [address] Apr, [facility] [place] [facility] [address] [id number] [place] [address] 30 Apr, 2012 [facility] [place] [facility] [address] [id number] [place] [address] Apr, [facility] [place] [facility] [address] [id number] [place] [address] Mar, [facility] [place] [facility] [address] [id number] [place] [address] 14 Feb, 2012 [facility] [place] [facility] [address] [id number] [place] [address] January, [facility] [place] [facility] [address] [id number] [place] [address] Dec, [facility] [place] [facility] [address] [id number] [place] [address] Nov, [facility] [address] [id number] [place] [id number] Oct, [facility] [place] [facility] [address] [id number], [place] [address] Sep, [facility] [place] [facility] [address] [id number] [place] [address] Jul, [facility] [place] [facility] [address] [id number], [place] [address] Jul, [facility] [place] [facility] [address] [id number], [place] [address] Jul, [facility] [place] [facility] [address] [id number], [place] [address] Jul, [facility] [place] [facility] [address] [id number], [place] [address] Jun, [facility] [place] [facility] [address] [id number], [place] [address] Jul, [facility] [place] [facility] [address] [id number], [place] [address] 15 Jul, 2010 [facility] [place] [facility] [address] [id number], [place] [address] 08 Jul, 2010 [facility] [address] [id number], [place] [address] 14 Aug, 2009 [facility] [address] [id number], [place] [address] Jul, [facility] [address] [id number], [place] [address] Jun, [facility] [id number], [place] [address] Jun, [facility] [id number], [place] [address] Aug, [facility] [id number], [place] [address] Aug, [facility] [address] [id number], [place] [address] Jul, IMMUNIZATIONS No Known Immunizations SOCIAL HISTORY Never Assessed REASON FOR VISIT [place] [place] VITAL SIGNS MEDICATIONS Unknown Medications RESULTS No Results PROCEDURES No Known procedures INSTRUCTIONS MEDICATIONS ADMINISTERED No Known Medications MEDICAL (GENERAL) HISTORY Type Description Date Medical History Heart Disease Medical History Heart Attack December 2003 last one was 2016 Medical History Stroke December 2003 Medical History Pace maker Medical History COPD Medical History Per Dr. Gomes patient is not to stop plavix for dental treatment. Surgical History Heart Bypass 2013 Surgical History Stints 2017 Surgical History Pacemaker 2017 Surgical History ACL Hospitalization History Surgery related Hospitalization History Heart attack X 5 Hospitalization History [facility]- Abscessed Tooth 03/19/2018
--- OUTSIDE RECORDS SUMMARY | 2019-03-24 17:41 | XMS REPORT ---
Author Author Migration, Doctor Organization [facility] Address Unknown Phone Unavailable Care Team Providers Care Hood Maker Name Role Phone Migration, Doctor Unavailable Unavailable PROBLEMS Type Condition ICD9-CM Code PHU97-EJ Code Onset Dates Condition Status SNOMED Code Problem Family history of diabetes mellitus V18.0 Active 264881395 Problem Need for prophylactic vaccination and inoculation, Influenza V04.81 Active 056206377 Problem Syncope and collapse 780.2 Active 933775108 Problem Other chronic pain 338.29 Active 01568132 Problem Obstructive sleep apnea (adult) (pediatric) 327.23 Active 55474406 Problem Unspecified pruritic disorder 698.9 Active 041016474 Problem Asthma, unspecified, unspecified status 493.90 Active 44149245 Problem Coronary atherosclerosis of unspecified type of vessel, [place] or graft 414.00 Active 005650548 Problem Carpal tunnel syndrome 354.0 Active 72259745 ALLERGIES No Information ENCOUNTERS Encounter Location Date Diagnosis [facility] [address] [id number] Jun, Caries K02.9 [facility] [address] [address] Mar, [facility] [address] [id number] Mar, Dental examination Z01.20 [facility] [address] [address] January, [facility] [address] [id number] Aug, Dental caries K02.9 [facility] [address] [id number] Aug, [facility] [address] [id number] Aug, [facility] [address] [facility] [id number] [place] [id number] Aug, [facility] [address] [id number] [place] [id number] Aug, Dental examination Z01.20 [facility] [address] [id number] [place] [address] 14 Dec, 2014 [facility] [address] [id number] [place] [address] Dec, [facility] [address] [id number] [place] [address] May, [facility] [address] [id number] [place] [address] May, [facility] [address] [id number] [place] [address] Apr, [facility] [address] [id number] [place] [address] Apr, [facility] [address] [id number] [place] [address] Apr, [facility] [address] [id number] [place] [address] Apr, [facility] [address] [id number] [place] [address] Apr, [facility] [address] [id number] [place] [address] Mar, [facility] [place] [facility] [address] [id number] [place] [address] Mar, [facility] [place] [facility] [address] [id number] [place] [address] Mar, [facility] [place] [facility] [address] [id number] [place] [address] Mar, [facility] [place] [facility] [address] [id number] [place] [address] Mar, [facility] [place] [facility] [address] [id number] [place] [address] Mar, [facility] [place] [facility] [address] [id number] [place] [address] Mar, [facility] [place] [facility] [address] [id number] [place] [address] Mar, [facility] [place] [facility] [address] [id number] [place] [address] Feb, [facility] [place] [facility] [address] [id number] [place] [address] Feb, [facility] [place] [facility] [address] [id number] [place] [address] January, [facility] [place] [facility] [address] [id number] [place] [address] January, [facility] [place] [facility] [address] [id number] [place] [address] Dec, [facility] [place] [facility] [address] [id number] [place] [address] Dec, [facility] [place] [facility] [address] [id number] [place] [address] Dec, [facility] [place] [facility] [address] [id number] [place] [address] Dec, [facility] [place] [facility] [address] [id number] [place] [address] Dec, [facility] [place] [facility] [address] [id number] [place] [address] Dec, [facility] [place] [facility] [address] [id number] [place] [address] Nov, [facility] [place] [facility] [address] [id number] [place] [address] Nov, [facility] [place] [facility] [address] [id number] [place] [address] 11 Nov, 2013 [facility] [place] [facility] [address] [id number] [place] [address] 11 Nov, 2013 [facility] [place] [facility] [address] [id number] [place] [address] Nov, [facility] [place] [facility] [address] [id number] [place] [address] Nov, [facility] [place] [facility] [address] [id number] [place] [address] Nov, [facility] [place] [facility] [address] [id number] [place] [address] Nov, [facility] [place] [facility] [address] [id number] [place] [address] Nov, [facility] [place] [facility] [address] [id number] [place] [address] Oct, [facility] [place] [facility] [address] [id number] [place] [address] Oct, [facility] [place] [facility] [address] [id number] [place] [address] Sep, [facility] [place] [facility] [address] [id number] [place] [address] Sep, [facility] [place] [facility] [address] [id number] [place] [address] Sep, [facility] [place] [facility] [address] [id number] [place] [address] Sep, [facility] [place] [facility] [address] [id number] [place] [address] Aug, [facility] [place] [facility] [address] [id number] [place] [address] Aug, [facility] [place] [facility] [address] [id number] [place] [address] Aug, [facility] [place] [facility] [address] [id number] [place] [address] Jul, [facility] [place] [facility] [address] [id number] [place] [address] Jul, [facility] [place] [facility] [address] [id number] [place] [address] Jul, [facility] [place] [facility] [address] [id number] [place] [address] Jul, [facility] [place] [facility] [address] [id number] [place] [address] Jul, [facility] [place] [facility] [address] [id number] [place] [address] Jun, [facility] [place] [facility] [address] [id number] [place] [address] Jun, [facility] [place] [facility] [address] [id number] [address] Jun, [facility] [place] [facility] [address] [id number] [place] [address] Jun, [facility] [place] [facility] [address] [id number], [place] [address] Jun, [facility] [place] [facility] [address] [id number], [place] [address] Jun, [facility] [place] [facility] [address] [id number], [place] [address] Jun, [facility] [place] [facility] [address] [id number], [place] [address] Jun, [facility] [place] [facility] [address] [id number][place] [address] Jun, [facility] [place] [facility] [address] [id number], [place] [address] Jun, [facility] [place] [facility] [address] [id number], [place] [address] Jun, [facility] [address] [id number] [place] [address] Jun, [facility] [place] [facility] [address] [id number] [place] [address] Jun, [facility] [place] [facility] [address] [id number] [place] [address] May, [facility] [place] [facility] [address] [id number] [place] [address] May, [facility] [address] [id number] [place] [address] May, [facility] [place] [facility] [address] [id number] [place] [address] May, [facility] [address] [id number] [place] [address] Apr, [facility] [place] [facility] [address] [id number] [place] [address] Apr, [facility] [address] [id number] [place] [address] Apr, [facility] [place] [facility] [address] [id number] [place] [address] Mar, [facility] [place] [facility] [address] [id number], [place] [address] January, [facility] [place] [facility] [address] [id number], [place] [address] January, [facility] [place] [facility] [address] [id number] [place] [address] January, [facility] [place] [facility] [address] [id number] [place] [address] Dec, [facility] [place] [facility] [address] [id number] [place] [address] Dec, [facility] [place] [facility] [address] [id number] [place] [address] 15 Nov, 2012 [facility] [place] [facility] [address] [id number] [place] [address] 05 Nov, 2012 [facility] [place] [facility] [address] [id number] [place] [address] 13 Oct, 2012 [facility] [place] [facility] [address] [id number] [place] [address] 05 Oct, 2012 [facility] [place] [facility] [address] [id number] [place] [address] Aug, [facility] [place] [facility] [address] [id number] [place] [address] Aug, [facility] [place] [facility] [address] [id number] [place] [address] Aug, [facility] [place] [facility] [address] [id number] [place] [address] Aug, [facility] [place] [facility] [address] [id number] [place] [address] Aug, [facility] [place] [facility] [address] [id number] [place] [address] Aug, [facility] [place] [facility] [address] [id number] [place] [address] Jun, [facility] [place] [facility] [address] [id number] [place] [address] Jun, [facility] [place] [facility] [address] [id number] [place] [address] May, [facility] [place] [facility] [address] [id number] [place] [address] May, [facility] [place] [facility] [address] [id number] [place] [address] Apr, [facility] [place] [facility] [address] [id number] [place] [address] 30 Apr, 2012 [facility] [place] [facility] [address] [id number] [place] [address] Apr, [facility] [place] [facility] [address] [id number] [place] [address] Mar, [facility] [place] [facility] [address] [id number] [place] [address] 14 Feb, 2012 [facility] [place] [facility] [address] [id number] [place] [address] January, [facility] [place] [facility] [address] [id number] [place] [address] Dec, [facility] [place] [facility] [address] [id number] [place] [address] Nov, [facility] [address] [id number] [id number] Oct, [facility] [place] [facility] [address] [id number][place] [address] Sep, [facility] [place] [facility] [address] [id number] [place] [address] Jul, [facility] [place] [facility] [address] [id number], [place] [address] Jul, [facility] [place] [facility] [address] [id number], [place] [address] Jul, [facility] [place] [facility] [address] [id number][place] [address] Jul, [facility] [place] [facility] [address] [id number], [place] [address] Jun, [facility] [place] [facility] [address] [id number], [place] [address] Jul, [facility] [place] [facility] [address] [id number][place] [address] 15 Jul, 2010 [facility] [place] [facility] [address] [id number], [place] [address] 08 Jul, 2010 [facility] [address] [id number], [place] [address] 14 Aug, 2009 [facility] [address] [id number], [place] [address] Jul, [facility] [address] [id number], [place] [address] Jun, [facility] [id number], [place] [address] Jun, [facility] [id number], [place] [address] Aug, [facility] [id number], [place] [address] Aug, [facility] [address] [id number], [place] [address] Jul, IMMUNIZATIONS No Known Immunizations SOCIAL HISTORY Never Assessed REASON FOR VISIT EMR-[facility] [place] PLAN OF CARE VITAL SIGNS MEDICATIONS Unknown [...] Heart attack X 5 Hospitalization History [facility]- Abscessed Tooth 03/19/2018
--- OUTSIDE RECORDS SUMMARY | 2019-03-24 17:41 | XMS REPORT ---
Author Author Migration, Doctor Organization [facility] Address Unknown Phone Unavailable Care Team Providers Care Tool Builder Name Role Phone Migration, Doctor Unavailable Unavailable PROBLEMS Type Condition ICD9-CM Code EMB84-DX Code Onset Dates Condition Status SNOMED Code Problem Family history of diabetes mellitus V18.0 Active 809130894 Problem Need for prophylactic vaccination and inoculation, Influenza V04.81 Active 062813824 Problem Syncope and collapse 780.2 Active 876922807 Problem Other chronic pain 338.29 Active 26623816 Problem Obstructive sleep apnea (adult) (pediatric) 327.23 Active 04700294 Problem Unspecified pruritic disorder 698.9 Active 758412584 Problem Asthma, unspecified, unspecified status 493.90 Active 29321713 Problem Coronary atherosclerosis of unspecified type of vessel, [place] or graft 414.00 Active 050634752 Problem Carpal tunnel syndrome 354.0 Active 56962661 ALLERGIES Substance Reaction Event Type Date Status Oxycodone NARC ALERT pt broke pain contract Drug Allergy Dec, Active ENCOUNTERS Encounter Location Date Diagnosis [facility] [address] [id number] Jun, Caries K02.9 [facility] [address] [address] Mar, [facility] [address] [id number] Mar, Dental examination Z01.20 [facility] [address] [address] January, [facility] [address] [id number] Aug, Dental caries K02.9 [facility] [address] [id number] Aug, [facility] [address] [id number] Aug, [facility] [address] [id number] [id number] Aug, [facility] [address] [id number] [id number] Aug, Dental examination Z01.20 [facility] [address] [id number] [place] [address] 14 Dec, 2014 [facility] [address] [id number] [place] [address] Dec, [facility] [address] [id number] [place] [address] May, [facility] [address] [id number] [place] [address] May, [facility] [address] [id number] [place] [address] Apr, [facility] [address] [id number] [place] [address] Apr, [facility] [address] [id number] [place] [address] Apr, [facility] [address] [facility] [id number] [place] [address] Apr, [facility] [address] [id number] [place] [address] Apr, [facility] [address] [id number], [place] [address] Mar, [facility] [address] [id number] [place] [address] Mar, [facility] [address] [id number] [place] [address] Mar, [facility] [address] [id number], [place] [address] Mar, [facility] [place] [facility] [address] [id number] [place] [address] Mar, [facility] [place] [facility] [address] [id number] [place] [address] Mar, [facility] [place] [facility] [address] [id number] [place] [address] Mar, [facility] [place] [facility] [address] [id number] [place] [address] Mar, [facility] [place] [facility] [address] [id number] [place] [address] Feb, [facility] [place] [facility] [address] [id number] [place] [address] Feb, [facility] [place] [facility] [address] [id number] [place] [address] January, [facility] [place] [facility] [address] [id number] [place] [address] January, [facility] [place] [facility] [address] [id number] [place] [address] Dec, [facility] [place] [facility] [address] [id number] [place] [address] Dec, [facility] [place] [facility] [address] [id number] [place] [address] Dec, [facility] [place] [facility] [address] [id number] [place] [address] Dec, [facility] [place] [facility] [address] [id number] [place] [address] Dec, [facility] [place] [facility] [address] [id number] [place] [address] Dec, [facility] [place] [facility] [address] [id number] [place] [address] Nov, [facility] [place] [facility] [address] [id number] [place] [address] Nov, [facility] [place] [facility] [address] [id number] [place] [address] Nov, [facility] [place] [facility] [address] [id number] [place] [address] Nov, [facility] [place] [facility] [address] [id number] [place] [address] Nov, [facility] [place] [facility] [address] [id number] [place] [address] Nov, [facility] [place] [facility] [address] [id number] [place] [address] Nov, [facility] [place] [facility] [address] [id number] [place] [address] Nov, [facility] [place] [facility] [address] [id number] [place] [address] Nov, [facility] [place] [facility] [address] [id number] [place] [address] Oct, [facility] [place] [facility] [address] [id number] [place] [address] Oct, [facility] [place] [facility] [address] [id number] [place] [address] Sep, [facility] [place] [facility] [address] [id number] [place] [address] Sep, [facility] [place] [facility] [address] [id number] [place] [address] Sep, [facility] [place] [facility] [address] [id number] [place] [address] Sep, [facility] [place] [facility] [address] [id number] [place] [address] Aug, [facility] [place] [facility] [address] [id number] [place] [address] Aug, [facility] [place] [facility] [address] [id number] [place] [address] 05 Aug, 2012 [facility] [address] [id number] [place] [address] Jul, [facility] [place] [facility] [address] [id number] [place] [address] Jul, [facility] [address] [id number] [place] [address] Jul, [facility] [place] [facility] [address] [id number] [place] [address] Jul, [facility] [place] [facility] [address] [id number] [place] [address] Jul, [facility] [place] [facility] [address] [id number] [place] [address] Jun, [facility] [place] [facility] [address] [id number] [place] [address] Jun, [facility] [address] [id number] [place] [address] Jun, [facility] [place] [facility] [address] [id number] [place] [address] Jun, [facility] [address] [facility] [id number], [place] [address] Jun, [facility] [place] [facility] [address] [id number] [place] [address] Jun, [facility] [place] [facility] [address] [id number], [place] [address] Jun, [facility] [place] [facility] [address] [id number] [place] [address] Jun, [facility] [place] [facility] [address] [id number] [place] [address] Jun, [facility] [place] [facility] [address] [id number] [place] [address] Jun, [facility] [place] [facility] [address] [id number] [place] [address] Jun, [facility] [place] [facility] [address] [id number] [place] [address] Jun, [facility] [place] [facility] [address] [id number] [place] [address] Jun, [facility] [place] [facility] [address] [id number] [place] [address] May, [facility] [place] [facility] [address] [id number] [place] [address] May, [facility] [place] [facility] [address] [id number] [place] [address] May, [facility] [place] [facility] [address] [id number] [place] [address] May, [facility] [place] [facility] [address] [id number], [place] [address] Apr, [facility] [place] [facility] [address] [id number] [place] [address] Apr, [facility] [place] [facility] [address] [id number], [place] [address] Apr, [facility] [place] [facility] [address] [id number], [place] [address] Mar, [facility] [place] [facility] [address] [id number], [place] [address] January, [facility] [place] [facility] [address] [id number] [place] [address] January, [facility] [place] [facility] [address] [id number], [place] [address] January, [facility] [place] [facility] [address] [id number], [place] [address] Dec, [facility] [place] [facility] [address] [id number], [place] [address] Dec, [facility] [address] [id number] [place] [address] Nov, [facility] [place] [facility] [address] [facility] [id number] [place] [address] 05 Nov, 2012 [facility] [address] [facility] [id number] [place] [address] 13 Oct, 2012 [facility] [place] [facility] [address] [facility] [id number] [place] [address] 05 Oct, 2012 [facility] [address] [facility] [id number] [place] [address] Aug, [facility] [place] [facility] [address] [facility] [id number] [place] [address] Aug, [facility] [address] [facility] [id number] [place] [address] Aug, [facility] [place] [facility] [address] [facility] [id number] [place] [address] Aug, [facility] [address] [facility] [id number] [place] [address] Aug, [facility] [address] [facility] [id number] [place] [address] Aug, [facility] [place] [facility] [address] [facility] [id number] [place] [address] Jun, [facility] [place] [facility] [address] [facility] [id number], [place] [address] Jun, [facility] [place] [facility] [address] [facility] [id number] [place] [address] May, [facility] [place] [facility] [address] [facility] [id number] [place] [address] May, [facility] [place] [facility] [address] [facility] [id number], [place] [address] Apr, [facility] [place] [facility] [address] [id number] [place] [address] 30 Apr, 2012 [facility] [place] [facility] [address] [id number] [place] [address] Apr, [facility] [place] [facility] [address] [id number] [place] [address] Mar, [facility] [place] [facility] [address] [id number] [place] [address] Feb, [facility] [place] [facility] [address] [id number] [place] [address] January, [facility] [place] [facility] [address] [id number] [place] [address] Dec, [facility] [place] [facility] [id number] [address] Nov, [facility] [address] [id number] [place] [id number] Oct, [facility] [address] [id number] [place] [address] Sep, [facility] [place] [facility] [address] [id number] [place] [address] Jul, [facility] [place] [facility] [address] [id number] [place] [address] Jul, [facility] [place] [facility] [address] [id number] [place] [address] Jul, [facility] [place] [facility] [address] [id number] [place] [address] Jul, [facility] [place] [facility] [address] [id number] [place] [address] Jun, [facility] [place] [facility] [address] [id number] [place] [address] Jul, [facility] [place] [facility] [address] [id number] [place] [address] 15 Jul, 2010 [facility] [address] [id number], [place] [address] 08 Jul, 2010 [facility] [address] [facility] [id number], [place] [address] 14 Aug, 2009 [facility] [address] [id number], [place] [address] 16 Jul, 2009 [facility] [address] [facility] [id number], [place] [address] Jun, [facility] [address] [id number], [place] [address] Jun, [facility] [id number], [place] [address] Aug, [facility] [id number], [place] [address] Aug, [facility] [address] [id number], [place] [address] Jul, IMMUNIZATIONS No Known Immunizations SOCIAL HISTORY Never Assessed REASON FOR VISIT EMR-[facility] PLAN OF CARE VITAL SIGNS MEDICATIONS Medication Instructions Dosage Frequency Start Date End Date Duration Status Advair Diskus 250 mcg-50 mcg 1 puffs by Inhalation route 2 times per day Nov, Active Spiriva 18 mcg inhale 1 capsule (18 mcg) by inhalation route once daily Apr, Active RESULTS No Results PROCEDURES No Known procedures [...] History Heart attack X 5 Hospitalization History [facility] [place]- Abscessed Tooth 03/19/2018
--- OUTSIDE RECORDS SUMMARY | 2019-03-24 17:42 | XMS REPORT ---
Author Author Migration, Doctor Organization [facility] Address Unknown Phone Unavailable Care Team Providers Care [employer]izer Water [employer] Name Role Phone Migration, Doctor Unavailable Unavailable PROBLEMS Type Condition ICD9-CM Code ZLN18-TQ Code Onset Dates Condition Status SNOMED Code Problem Family history of diabetes mellitus V18.0 Active 400392511 Problem Need for prophylactic vaccination and inoculation, Influenza V04.81 Active 545270901 Problem Syncope and collapse 780.2 Active 066686176 Problem Other chronic pain 338.29 Active 99949062 Problem Obstructive sleep apnea (adult) (pediatric) 327.23 Active 49781390 Problem Unspecified pruritic disorder 698.9 Active 960233099 Problem Asthma, unspecified, unspecified status 493.90 Active 11193884 Problem Coronary atherosclerosis of unspecified type of vessel, coeur d'alene or graft 414.00 Active 665293489 Problem Carpal tunnel syndrome 354.0 Active 89884839 ALLERGIES No Information ENCOUNTERS Encounter Location Date Diagnosis [facility] [address] [id number] Jun, Caries K02.9 [facility] [address] [address] Mar, [facility] [address] [id number] Mar, Dental examination Z01.20 [facility] [address] [address] January, [facility] [address] [id number] Aug, Dental caries K02.9 [facility] [address] [id number] Aug, [facility] [address] [id number] Aug, [facility] [address] [facility] [id number] [place] [id number] Aug, [facility] [address] [id number] [place] [id number] Aug, Dental examination Z01.20 [facility] [address] [id number] [place] [address] 14 Dec, 2014 [facility] [address] [id number] [place] [address] Dec, [facility] [address] [id number] [place] [address] May, [facility] [address] [id number] [place] [address] May, [facility] [address] [id number] [place] [address] Apr, [facility] [address] [id number] [place] [address] Apr, [facility] [address] [id number] [place] [address] Apr, [facility] [address] [id number] [place] [address] Apr, [facility] [address] [id number] [place] [address] Apr, [facility] [address] [id number] [place] [address] Mar, [facility] [place] [facility] [address] [id number] [place] [address] Mar, [facility] [place] [facility] [address] [id number] [place] [address] Mar, [facility] [place] [facility] [address] [id number] [place] [address] Mar, [facility] [place] [facility] [address] [id number] [place] [address] Mar, [facility] [place] [facility] [address] [id number] [place] [address] Mar, [facility] [place] [facility] [address] [id number] [place] [address] Mar, [facility] [place] [facility] [address] [id number] [place] [address] Mar, [facility] [place] [facility] [address] [id number] [place] [address] Feb, [facility] [place] [facility] [address] [id number] [place] [address] Feb, [facility] [place] [facility] [address] [id number] [place] [address] January, [facility] [place] [facility] [address] [id number] [place] [address] January, [facility] [place] [facility] [address] [id number] [place] [address] Dec, [facility] [place] [facility] [address] [id number] [place] [address] Dec, [facility] [place] [facility] [address] [id number] [place] [address] Dec, [facility] [place] [facility] [address] [id number] [place] [address] Dec, [facility] [place] [facility] [address] [id number] [place] [address] Dec, [facility] [place] [facility] [address] [id number] [place] [address] Dec, [facility] [place] [facility] [address] [id number] [place] [address] Nov, [facility] [place] [facility] [address] [id number] [place] [address] Nov, [facility] [place] [facility] [address] [id number] [place] [address] 11 Nov, 2013 [facility] [place] [facility] [address] [id number] [place] [address] 11 Nov, 2013 [facility] [place] [facility] [address] [id number] [place] [address] Nov, [facility] [place] [facility] [address] [id number] [place] [address] Nov, [facility] [place] [facility] [address] [id number] [place] [address] Nov, [facility] [place] [facility] [address] [id number] [place] [address] Nov, [facility] [place] [facility] [address] [id number] [place] [address] Nov, [facility] [place] [facility] [address] [id number] [place] [address] Oct, [facility] [place] [facility] [address] [id number] [place] [address] Oct, [facility] [place] [facility] [address] [id number] [place] [address] Sep, [facility] [place] [facility] [address] [id number] [place] [address] Sep, [facility] [place] [facility] [address] [id number] [place] [address] Sep, [facility] [place] [facility] [address] [id number] [place] [address] Sep, [facility] [place] [facility] [address] [id number] [place] [address] Aug, [facility] [place] [facility] [address] [id number] [place] [address] Aug, [facility] [place] [facility] [address] [id number] [place] [address] Aug, [facility] [place] [facility] [address] [id number] [place] [address] Jul, [facility] [place] [facility] [address] [id number] [place] [address] Jul, [facility] [place] [facility] [address] [id number] [place] [address] Jul, [facility] [place] [facility] [address] [id number] [place] [address] Jul, [facility] [place] [facility] [address] [id number] [place] [address] Jul, [facility] [place] [facility] [address] [id number] [place] [address] Jun, [facility] [place] [facility] [address] [id number] [place] [address] Jun, [facility] [place] [facility] [address] [id number], [place] [address] Jun, [facility] [place] [facility] [address] [id number] [place] [address] Jun, [facility] [place] [facility] [address] [id number], [place] [address] Jun, [facility] [place] [facility] [address] [id number], [place] [address] Jun, [facility] [place] [facility] [address] [id number], [place] [address] Jun, [facility] [place] [facility] [address] [id number], [place] [address] Jun, [facility] [place] [facility] [address] [id number], [place] [address] Jun, [facility] [place] [facility] [address] [id number], [place] [address] Jun, [facility] [place] [facility] [address] [id number], [place] [address] Jun, [facility] [address] [id number] [place] [address] Jun, [facility] [place] [facility] [address] [id number] [place] [address] Jun, [facility] [place] [facility] [address] [id number] [place] [address] May, [facility] [place] [facility] [address] [id number] [place] [address] May, [facility] [address] [id number] [place] [address] May, [facility] [place] [facility] [address] [id number] [place] [address] May, [facility] [address] [id number] [place] [address] Apr, [facility] [place] [facility] [address] [id number] [place] [address] Apr, [facility] [address] [id number] [place] [address] Apr, [facility] [place] [facility] [address] [id number] [place] [address] Mar, [facility] [place] [facility] [address] [id number], [place] [address] January, [facility] [place] [facility] [address] [id number], [place] [address] January, [facility] [place] [facility] [address] [id number] [place] [address] January, [facility] [place] [facility] [address] [id number] [place] [address] Dec, [facility] [place] [facility] [address] [id number] [place] [address] Dec, [facility] [place] [facility] [address] [id number] [place] [address] 15 Nov, 2012 [facility] [place] [facility] [address] [id number] [place] [address] 05 Nov, 2012 [facility] [place] [facility] [address] [id number] [place] [address] 13 Oct, 2012 [facility] [place] [facility] [address] [id number] [place] [address] 05 Oct, 2012 [facility] [place] [facility] [address] [id number] [place] [address] Aug, [facility] [place] [facility] [address] [id number] [place] [address] Aug, [facility] [place] [facility] [address] [id number] [place] [address] Aug, [facility] [place] [facility] [address] [id number] [place] [address] Aug, [facility] [place] [facility] [address] [id number] [place] [address] Aug, [facility] [place] [facility] [address] [id number] [place] [address] Aug, [facility] [place] [facility] [address] [id number] [place] [address] Jun, [facility] [place] [facility] [address] [id number] [place] [address] Jun, [facility] [place] [facility] [address] [id number] [place] [address] May, [facility] [place] [facility] [address] [id number] [place] [address] May, [facility] [place] [facility] [address] [id number] [place] [address] Apr, [facility] [place] [facility] [address] [id number] [place] [address] 30 Apr, 2012 [facility] [place] [facility] [address] [id number] [place] [address] Apr, [facility] [place] [facility] [address] [id number] [place] [address] Mar, [facility] [place] [facility] [address] [id number] [place] [address] 14 Feb, 2012 [facility] [place] [facility] [address] [id number] [place] [address] January, [facility] [place] [facility] [address] [id number] [place] [address] Dec, [facility] [place] [facility] [address] [id number] [place] [address] Nov, [facility] [address] [id number] [id number] Oct, [facility] [place] [facility] [address] [id number], [place] [address] Sep, [facility] [place] [facility] [address] [id number] [place] [address] Jul, [facility] [place] [facility] [address] [id number], [place] [address] Jul, [facility] [place] [facility] [address] [id number], [place] [address] Jul, [facility] [place] [facility] [address] [id number], [place] [address] Jul, [facility] [place] [facility] [address] [id number], [place] [address] Jun, [facility] [place] [facility] [address] [id number], [place] [address] Jul, [facility] [place] [facility] [address] [id number], [place] [address] 15 Jul, 2010 [facility] [place] [facility] [address] [id number], [place] [address] 08 Jul, 2010 [facility] [address] [id number], [place] [address] 14 Aug, 2009 [facility] [address] [id number], [place] [address] Jul, [facility] [address] [id number], [place] [address] Jun, [facility] [address]005[address], [place] [address] Jun, [facility] [address]00565100[place], [place] [address] Aug, [facility] [address]65[address], [place] [address] Aug, [facility] [address] [id number], [place] [address] Jul, IMMUNIZATIONS No Known Immunizations SOCIAL HISTORY Never Assessed REASON FOR VISIT [place] [place] VITAL SIGNS MEDICATIONS Unknown [...] Heart attack X 5 Hospitalization History [place] Abscessed Tooth 03/19/2018
--- OUTSIDE RECORDS SUMMARY | 2019-03-24 17:42 | XMS REPORT ---
Author Author Migration, Doctor Organization [facility] Address Unknown Phone Unavailable Care Team Providers Care Structural Architect Name Role Phone Migration, Doctor Unavailable Unavailable PROBLEMS Type Condition ICD9-CM Code RAI62-AU Code Onset Dates Condition Status SNOMED Code Problem Family history of diabetes mellitus V18.0 Active 581816281 Problem Need for prophylactic vaccination and inoculation, Influenza V04.81 Active 103911229 Problem Syncope and collapse 780.2 Active 974128759 Problem Other chronic pain 338.29 Active 05695405 Problem Obstructive sleep apnea (adult) (pediatric) 327.23 Active 42116698 Problem Unspecified pruritic disorder 698.9 Active 021502250 Problem Asthma, unspecified, unspecified status 493.90 Active 92642825 Problem Coronary atherosclerosis of unspecified type of vessel, iroquois or graft 414.00 Active 253985624 Problem Carpal tunnel syndrome 354.0 Active 12007669 ALLERGIES No Information ENCOUNTERS Encounter Location Date Diagnosis [facility] [address] [id number] Jun, Caries K02.9 [facility] [address] [address] Mar, [facility] [address] [id number] Mar, Dental examination Z01.20 [facility] [address] [address] January, [facility] [address] [id number] Aug, Dental caries K02.9 [facility] [address] [id number] Aug, [facility] [address] [id number] Aug, [facility] [address] [facility] [id number] [place] [id number] Aug, [facility] [address] [id number] [place] [id number] Aug, Dental examination Z01.20 [facility] [address] [id number] [place] [address] 14 Dec, 2014 [facility] [address] [id number] [place] [address] Dec, [facility] [address] [id number] [place] [address] May, [facility] [address] [id number] [place] [address] May, [facility] [address] [id number] [place] [address] Apr, [facility] [address] [id number] [place] [address] Apr, [facility] [address] [id number] [place] [address] Apr, [facility] [address] [id number] [place] [address] Apr, [facility] [address] [id number] [place] [address] Apr, [facility] [address] [id number] [place] [address] Mar, [facility] [place] [facility] [address] [id number] [place] [address] Mar, [facility] [place] [facility] [address] [id number] [place] [address] Mar, [facility] [place] [facility] [address] [id number] [place] [address] Mar, [facility] [place] [facility] [address] [id number] [place] [address] Mar, [facility] [place] [facility] [address] [id number] [place] [address] Mar, [facility] [place] [facility] [address] [id number] [place] [address] Mar, [facility] [place] [facility] [address] [id number] [place] [address] Mar, [facility] [place] [facility] [address] [id number] [place] [address] Feb, [facility] [place] [facility] [address] [id number] [place] [address] Feb, [facility] [place] [facility] [address] [id number] [place] [address] January, [facility] [place] [facility] [address] [id number] [place] [address] January, [facility] [place] [facility] [address] [id number] [place] [address] Dec, [facility] [place] [facility] [address] [id number] [place] [address] Dec, [facility] [place] [facility] [address] [id number] [place] [address] Dec, [facility] [place] [facility] [address] [id number] [place] [address] Dec, [facility] [place] [facility] [address] [id number] [place] [address] Dec, [facility] [place] [facility] [address] [id number] [place] [address] Dec, [facility] [place] [facility] [address] [id number] [place] [address] Nov, [facility] [place] [facility] [address] [id number] [place] [address] Nov, [facility] [place] [facility] [address] [id number] [place] [address] 11 Nov, 2013 [facility] [place] [facility] [address] [id number] [place] [address] 11 Nov, 2013 [facility] [place] [facility] [address] [id number] [place] [address] Nov, [facility] [place] [facility] [address] [id number] [place] [address] Nov, [facility] [place] [facility] [address] [id number] [place] [address] Nov, [facility] [place] [facility] [address] [id number] [place] [address] Nov, [facility] [place] [facility] [address] [id number] [place] [address] Nov, [facility] [place] [facility] [address] [id number] [place] [address] Oct, [facility] [place] [facility] [address] [id number] [place] [address] Oct, [facility] [place] [facility] [address] [id number] [place] [address] Sep, [facility] [place] [facility] [address] [id number] [place] [address] Sep, [facility] [place] [facility] [address] [id number] [place] [address] Sep, [facility] [place] [facility] [address] [id number] [place] [address] Sep, [facility] [place] [facility] [address] [id number] [place] [address] Aug, [facility] [place] [facility] [address] [id number] [place] [address] Aug, [facility] [place] [facility] [address] [id number] [place] [address] Aug, [facility] [place] [facility] [address] [id number] [place] [address] Jul, [facility] [place] [facility] [address] [id number] [place] [address] Jul, [facility] [place] [facility] [address] [id number] [place] [address] Jul, [facility] [place] [facility] [address] [id number] [place] [address] Jul, [facility] [place] [facility] [address] [id number] [place] [address] Jul, [facility] [place] [facility] [address] [id number] [place] [address] Jun, [facility] [place] [facility] [address] [id number] [place] [address] Jun, [facility] [place] [facility] [address] [id number], [place] [address] Jun, [facility] [place] [facility] [address] [id number] [place] [address] Jun, [facility] [place] [facility] [address] [id number], [place] [address] Jun, [facility] [place] [facility] [address] [id number], [place] [address] Jun, [facility] [place] [facility] [address] [id number], [place] [address] Jun, [facility] [place] [facility] [address] [id number], [place] [address] Jun, [facility] [place] [facility] [address] [id number], [place] [address] Jun, [facility] [place] [facility] [address] [id number], [place] [address] Jun, [facility] [place] [facility] [address] [id number], [place] [address] Jun, [facility] [address] [id number] [place] [address] Jun, [facility] [place] [facility] [address] [id number] [place] [address] Jun, [facility] [place] [facility] [address] [id number] [place] [address] May, [facility] [place] [facility] [address] [id number] [place] [address] May, [facility] [address] [id number] [place] [address] May, [facility] [place] [facility] [address] [id number] [place] [address] May, [facility] [address] [id number] [place] [address] Apr, [facility] [place] [facility] [address] [id number] [place] [address] Apr, [facility] [address] [id number] [place] [address] Apr, [facility] [place] [facility] [address] [id number] [place] [address] Mar, [facility] [place] [facility] [address] [id number], [place] [address] January, [facility] [place] [facility] [address] [id number], [place] [address] January, [facility] [place] [facility] [address] [id number] [place] [address] January, [facility] [place] [facility] [address] [id number] [place] [address] Dec, [facility] [place] [facility] [address] [id number] [place] [address] Dec, [facility] [place] [facility] [address] [id number] [place] [address] 15 Nov, 2012 [facility] [place] [facility] [address] [id number] [place] [address] 05 Nov, 2012 [facility] [place] [facility] [address] [id number] [place] [address] 13 Oct, 2012 [facility] [place] [facility] [address] [id number] [place] [address] 05 Oct, 2012 [facility] [place] [facility] [address] [id number] [place] [address] Aug, [facility] [place] [facility] [address] [id number] [place] [address] Aug, [facility] [place] [facility] [address] [id number] [place] [address] Aug, [facility] [place] [facility] [address] [id number] [place] [address] Aug, [facility] [place] [facility] [address] [id number] [place] [address] Aug, [facility] [place] [facility] [address] [id number] [place] [address] Aug, [facility] [place] [facility] [address] [id number] [place] [address] Jun, [facility] [place] [facility] [address] [id number] [place] [address] Jun, [facility] [place] [facility] [address] [id number] [place] [address] May, [facility] [place] [facility] [address] [id number] [place] [address] May, [facility] [place] [facility] [address] [id number] [place] [address] Apr, [facility] [place] [facility] [address] [id number] [place] [address] 30 Apr, 2012 [facility] [place] [facility] [address] [id number] [place] [address] Apr, [facility] [place] [facility] [address] [id number] [place] [address] Mar, [facility] [place] [facility] [address] [id number] [place] [address] 14 Feb, 2012 [facility] [place] [facility] [address] [id number] [place] [address] January, [facility] [place] [facility] [address] [id number] [place] [address] Dec, [facility] [place] [facility] [address] [id number] [place] [address] Nov, [facility] [address] [id number] [id number] Oct, [facility] [place] [facility] [address] [id number], [place] [address] Sep, [facility] [place] [facility] [address] [id number] [place] [address] Jul, [facility] [place] [facility] [address] [id number], [place] [address] Jul, [facility] [place] [facility] [address] [id number], [place] [address] Jul, [facility] [place] [facility] [address] [id number], [place] [address] Jul, [facility] [place] [facility] [address] [id number], [place] [address] Jun, [facility] [place] [facility] [address] [id number], [place] [address] Jul, [facility] [place] [facility] [address] [id number], [place] [address] 15 Jul, 2010 [facility] [place] [facility] [address] [id number], [place] [address] 08 Jul, 2010 [facility] [address] [id number], [place] [address] 14 Aug, 2009 [facility] [address] [id number], [place] [address] Jul, [facility] [address] [id number], [place] [address] Jun, [facility] [id number], [place] [address] Jun, [facility] [id number], [place] [address] Aug, [facility] [id number], [place] [address] Aug, [facility] [address] [id number], [place] [address] Jul, IMMUNIZATIONS No Known Immunizations SOCIAL HISTORY Never Assessed REASON FOR VISIT EMR-[facility] PLAN OF CARE VITAL SIGNS MEDICATIONS [...] Heart attack X 5 Hospitalization History [facility] [place]- Abscessed Tooth 03/19/2018
--- OUTSIDE RECORDS SUMMARY | 2019-03-24 17:42 | XMS REPORT ---
Author Author Migration, Doctor Organization [facility] Address Unknown Phone Unavailable Care Team Providers Care Terra Cotta Roofer Helper Name Role Phone Migration, Doctor Unavailable Unavailable PROBLEMS Type Condition ICD9-CM Code QDD23-DX Code Onset Dates Condition Status SNOMED Code Problem Family history of diabetes mellitus V18.0 Active 698417450 Problem Need for prophylactic vaccination and inoculation, Influenza V04.81 Active 943081038 Problem Syncope and collapse 780.2 Active 947383929 Problem Other chronic pain 338.29 Active 73978625 Problem Obstructive sleep apnea (adult) (pediatric) 327.23 Active 12751558 Problem Unspecified pruritic disorder 698.9 Active 649565925 Problem Asthma, unspecified, unspecified status 493.90 Active 72732837 Problem Coronary atherosclerosis of unspecified type of vessel, ute or graft 414.00 Active 103183427 Problem Carpal tunnel syndrome 354.0 Active 83688120 ALLERGIES No Information ENCOUNTERS Encounter Location Date Diagnosis [facility] [address] [id number] Jun, Caries K02.9 [facility] [address] [address] Mar, [facility] [address] [id number] Mar, Dental examination Z01.20 [facility] [address] [address] January, [facility] [address] [id number] Aug, Dental caries K02.9 [facility] [address] [id number] Aug, [facility] [address] [id number] Aug, [facility] [address] [facility] [id number] [place] [id number] Aug, [facility] [address] [id number] [place] [id number] Aug, Dental examination Z01.20 [facility] [address] [id number] [place] [address] 14 Dec, 2014 [facility] [address] [id number] [place] [address] Dec, [facility] [address] [id number] [place] [address] May, [facility] [address] [id number] [place] [address] May, [facility] [address] [id number] [place] [address] Apr, [facility] [address] [id number] [place] [address] Apr, [facility] [address] [id number] [place] [address] Apr, [facility] [address] [id number] [place] [address] Apr, [facility] [address] [id number] [place] [address] Apr, [facility] [address] [id number] [place] [address] Mar, [facility] [place] [facility] [address] [id number] [place] [address] Mar, [facility] [place] [facility] [address] [id number] [place] [address] Mar, [facility] [place] [facility] [address] [id number] [place] [address] Mar, [facility] [place] [facility] [address] [id number] [place] [address] Mar, [facility] [place] [facility] [address] [id number] [place] [address] Mar, [facility] [place] [facility] [address] [id number] [place] [address] Mar, [facility] [place] [facility] [address] [id number] [place] [address] Mar, [facility] [place] [facility] [address] [id number] [place] [address] Feb, [facility] [place] [facility] [address] [id number] [place] [address] Feb, [facility] [place] [facility] [address] [id number] [place] [address] January, [facility] [place] [facility] [address] [id number] [place] [address] January, [facility] [place] [facility] [address] [id number] [place] [address] Dec, [facility] [place] [facility] [address] [id number] [place] [address] Dec, [facility] [place] [facility] [address] [id number] [place] [address] Dec, [facility] [place] [facility] [address] [id number] [place] [address] Dec, [facility] [place] [facility] [address] [id number] [place] [address] Dec, [facility] [place] [facility] [address] [id number] [place] [address] Dec, [facility] [place] [facility] [address] [id number] [place] [address] Nov, [facility] [place] [facility] [address] [id number] [place] [address] Nov, [facility] [place] [facility] [address] [id number] [place] [address] 11 Nov, 2013 [facility] [place] [facility] [address] [id number] [place] [address] 11 Nov, 2013 [facility] [place] [facility] [address] [id number] [place] [address] Nov, [facility] [place] [facility] [address] [id number] [place] [address] Nov, [facility] [place] [facility] [address] [id number] [place] [address] Nov, [facility] [place] [facility] [address] [id number] [place] [address] Nov, [facility] [place] [facility] [address] [id number] [place] [address] Nov, [facility] [place] [facility] [address] [id number] [place] [address] Oct, [facility] [place] [facility] [address] [id number] [place] [address] Oct, [facility] [place] [facility] [address] [id number] [place] [address] Sep, [facility] [place] [facility] [address] [id number] [place] [address] Sep, [facility] [place] [facility] [address] [id number] [place] [address] Sep, [facility] [place] [facility] [address] [id number] [place] [address] Sep, [facility] [place] [facility] [address] [id number] [place] [address] Aug, [facility] [place] [facility] [address] [id number] [place] [address] Aug, [facility] [place] [facility] [address] [id number] [place] [address] Aug, [facility] [place] [facility] [address] [id number] [place] [address] Jul, [facility] [place] [facility] [address] [id number] [place] [address] Jul, [facility] [place] [facility] [address] [id number] [place] [address] Jul, [facility] [place] [facility] [address] [id number] [place] [address] Jul, [facility] [place] [facility] [address] [id number] [place] [address] Jul, [facility] [place] [facility] [address] [id number] [place] [address] Jun, [facility] [place] [facility] [address] [id number] [place] [address] Jun, [facility] [place] [facility] [address] [id number] [place] [address] Jun, [facility] [place] [facility] [address] [id number] [place] [address] Jun, [facility] [place] [facility] [address] [id number] [place] [address] Jun, [facility] [place] [facility] [address] [id number] [place] [address] Jun, [facility] [place] [facility] [address] [id number] [place] [address] Jun, [facility] [place] [facility] [address] [id number] [place] [address] Jun, [facility] [place] [facility] [address] [id number] [place] [address] Jun, [facility] [place] [facility] [address] [id number] [place] [address] Jun, [facility] [place] [facility] [address] [id number] [place] [address] Jun, [facility] [address] [id number] [place] [address] Jun, [facility] [place] [facility] [address] [id number] [place] [address] Jun, [facility] [place] [facility] [address] [id number] [place] [address] May, [facility] [place] [facility] [address] [id number] [place] [address] May, [facility] [address] [id number] [place] [address] May, [facility] [place] [facility] [address] [id number] [place] [address] May, [facility] [address] [id number] [place] [address] Apr, [facility] [place] [facility] [address] [id number] [place] [address] Apr, [facility] [address] [id number] [place] [address] Apr, [facility] [place] [facility] [address] [id number] [place] [address] Mar, [facility] [place] [facility] [address] [id number] [place] [address] January, [facility] [place] [facility] [address] [id number] [place] [address] January, [facility] [place] [facility] [address] [id number] [place] [address] January, [facility] [place] [facility] [address] [id number] [place] [address] Dec, [facility] [place] [facility] [address] [id number] [place] [address] Dec, [facility] [place] [facility] [address] [id number] [place] [address] 15 Nov, 2012 [facility] [place] [facility] [address] [id number] [place] [address] 05 Nov, 2012 [facility] [place] [facility] [address] [id number] [place] [address] 13 Oct, 2012 [facility] [place] [facility] [address] [id number] [place] [address] 05 Oct, 2012 [facility] [place] [facility] [address] [id number] [place] [address] Aug, [facility] [place] [facility] [address] [id number] [place] [address] Aug, [facility] [place] [facility] [address] [id number] [place] [address] Aug, [facility] [place] [facility] [address] [id number] [place] [address] Aug, [facility] [place] [facility] [address] [id number] [place] [address] Aug, [facility] [place] [facility] [address] [id number] [place] [address] Aug, [facility] [place] [facility] [address] [id number] [place] [address] Jun, [facility] [place] [facility] [address] [id number] [place] [address] Jun, [facility] [place] [facility] [address] [id number] [place] [address] May, [facility] [place] [facility] [address] [id number] [place] [address] May, [facility] [place] [facility] [address] [id number] [place] [address] Apr, [facility] [place] [facility] [address] [id number] [place] [address] 30 Apr, 2012 [facility] [place] [facility] [address] [id number] [place] [address] Apr, [facility] [place] [facility] [address] [id number] [place] [address] Mar, [facility] [place] [facility] [address] [id number] [place] [address] 14 Feb, 2012 [facility] [place] [facility] [address] [id number] [place] [address] January, [facility] [place] [facility] [address] [id number] [place] [address] Dec, [facility] [place] [facility] [address] [id number] [place] [address] Nov, [facility] [address] [id number] [place] [id number] Oct, [facility] [place] [facility] [address] [id number] [place] [address] Sep, [facility] [place] [facility] [address] [id number] [place] [address] Jul, [facility] [place] [facility] [address] [id number] [place] [address] Jul, [facility] [place] [facility] [address] [id number] [place] [address] Jul, [facility] [place] [facility] [address] [id number] [place] [address] Jul, [facility] [place] [facility] [address] [id number] [place] [address] Jun, [facility] [place] [facility] [address] [id number] [place] [address] Jul, [facility] [place] [facility] [address] [id number] [place] [address] 15 Jul, 2010 [facility] [place] [facility] [address] [id number] [place] [address] 08 Jul, 2010 [facility] [address] [id number] [place] [address] 14 Aug, 2009 [facility] [address] [id number] [place] [address] Jul, [facility] [address] [id number] [place] [address] Jun, [facility] [id number] [place] [address] Jun, [facility] [id number] [place] [address] Aug, [facility] [id number] [place] [address] Aug, [facility] [address] [id number] [place] [address] Jul, IMMUNIZATIONS No Known Immunizations SOCIAL HISTORY Never Assessed REASON FOR VISIT EMR-[facility] [place]AN OF CARE VITAL [...] Heart attack X 5 Hospitalization History ED [place]- Abscessed Tooth 03/19/2018
--- OUTSIDE RECORDS SUMMARY | 2019-03-24 17:43 | XMS REPORT ---
Author Author Migration, Doctor Organization [facility] Address Unknown Phone Unavailable Care Team Providers Care Power Electronics Engineer Name Role Phone Migration, Doctor Unavailable Unavailable PROBLEMS Type Condition ICD9-CM Code [id number] Code Onset Dates Condition Status SNOMED Code Problem Family history of diabetes mellitus V18.0 Active 364343643 Problem Need for prophylactic vaccination and inoculation, Influenza V04.81 Active 832138494 Problem Syncope and collapse 780.2 Active 189309846 Problem Other chronic pain 338.29 Active 52202381 Problem Obstructive sleep apnea (adult) (pediatric) 327.23 Active 66082513 Problem Unspecified pruritic disorder 698.9 Active 069992810 Problem Asthma, unspecified, unspecified status 493.90 Active 26843811 Problem Coronary atherosclerosis of unspecified type of vessel, false pass or graft 414.00 Active 186344439 Problem Carpal tunnel syndrome 354.0 Active [id number] ALLERGIES No Information ENCOUNTERS Encounter Location Date Diagnosis [facility] [address] [id number] Jun, Caries K02.9 [facility] [address] [address] Mar, [facility] [address] [id number] Mar, Dental examination Z01.20 [facility] [address] [address] January, [facility] [address] [id number] Aug, Dental caries K02.9 [facility] [address] [id number] Aug, [facility] [address] [id number] Aug, [facility] [address] [facility] [id number] [place] [id number] Aug, [facility] [address] [id number] [place] [id number] Aug, Dental examination Z01.20 [facility] [address] [id number] [place] [address] 14 Dec, 2014 [facility] [address] [id number] [place] [address] Dec, [facility] [address] [id number] [place] [address] May, [facility] [address] [id number] [place] [address] May, [facility] [address] [id number] [place] [address] Apr, [facility] [address] [id number] [place] [address] Apr, [facility] [address] [id number] [place] [address] Apr, [facility] [address] [id number] [place] [address] Apr, [facility] [address] [id number] [place] [address] Apr, [facility] [address] [id number] [place] [address] Mar, [facility] [place] [facility] [address] [id number] [place] [address] Mar, [facility] [place] [facility] [address] [id number] [place] [address] Mar, [facility] [place] [facility] [address] [id number] [place] [address] Mar, [facility] [place] [facility] [address] [id number] [place] [address] Mar, [facility] [place] [facility] [address] [id number] [place] [address] Mar, [facility] [place] [facility] [address] [id number] [place] [address] Mar, [facility] [place] [facility] [address] [id number] [place] [address] Mar, [facility] [place] [facility] [address] [id number] [place] [address] Feb, [facility] [place] [facility] [address] [id number] [place] [address] Feb, [facility] [place] [facility] [address] [id number] [place] [address] January, [facility] [place] [facility] [address] [id number] [place] [address] January, [facility] [place] [facility] [address] [id number] [place] [address] Dec, [facility] [place] [facility] [address] [id number] [place] [address] Dec, [facility] [place] [facility] [address] [id number] [place] [address] Dec, [facility] [place] [facility] [address] [id number] [place] [address] Dec, [facility] [place] [facility] [address] [id number] [place] [address] Dec, [facility] [place] [facility] [address] [id number] [place] [address] Dec, [facility] [place] [facility] [address] [id number] [place] [address] Nov, [facility] [place] [facility] [address] [id number] [place] [address] Nov, [facility] [place] [facility] [address] [id number] [place] [address] 11 Nov, 2013 [facility] [place] [facility] [address] [id number] [place] [address] 11 Nov, 2013 [facility] [place] [facility] [address] [id number] [place] [address] Nov, [facility] [place] [facility] [address] [id number] [place] [address] Nov, [facility] [place] [facility] [address] [id number] [place] [address] Nov, [facility] [place] [facility] [address] [id number] [place] [address] Nov, [facility] [place] [facility] [address] [id number] [place] [address] Nov, [facility] [place] [facility] [address] [id number] [place] [address] Oct, [facility] [place] [facility] [address] [id number] [place] [address] Oct, [facility] [place] [facility] [address] [id number] [place] [address] Sep, [facility] [place] [facility] [address] [id number] [place] [address] Sep, [facility] [place] [facility] [address] [id number] [place] [address] Sep, [facility] [place] [facility] [address] [id number] [place] [address] Sep, [facility] [place] [facility] [address] [id number] [place] [address] Aug, [facility] [place] [facility] [address] [id number] [place] [address] Aug, [facility] [place] [facility] [address] [id number] [place] [address] Aug, [facility] [place] [facility] [address] [id number] [place] [address] Jul, [facility] [place] [facility] [address] [id number] [place] [address] Jul, [facility] [place] [facility] [address] [id number] [place] [address] Jul, [facility] [place] [facility] [address] [id number] [place] [address] Jul, [facility] [place] [facility] [address] [id number] [place] [address] Jul, [facility] [place] [facility] [address] [id number] [place] [address] Jun, [facility] [place] [facility] [address] [id number] [place] [address] Jun, [facility] [place] [facility] [address] [id number], [place] [address] Jun, [facility] [place] [facility] [address] [id number] [place] [address] Jun, [facility] [place] [facility] [address] [id number], [place] [address] Jun, [facility] [place] [facility] [address] [id number], [place] [address] Jun, [facility] [place] [facility] [address] [id number], [place] [address] Jun, [facility] [place] [facility] [address] [id number], [place] [address] Jun, [facility] [place] [facility] [address] [id number], [place] [address] Jun, [facility] [place] [facility] [address] [id number], [place] [address] Jun, [facility] [place] [facility] [address] [id number], [place] [address] Jun, [facility] [address] [id number] [place] [address] Jun, [facility] [place] [facility] [address] [id number] [place] [address] Jun, [facility] [place] [facility] [address] [id number] [place] [address] May, [facility] [place] [facility] [address] [id number] [place] [address] May, [facility] [address] [id number] [place] [address] May, [facility] [place] [facility] [address] [id number] [place] [address] May, [facility] [address] [id number] [place] [address] Apr, [facility] [place] [facility] [address] [id number] [place] [address] Apr, [facility] [address] [id number] [place] [address] Apr, [facility] [place] [facility] [address] [id number] [place] [address] Mar, [facility] [place] [facility] [address] [id number], [place] [address] January, [facility] [place] [facility] [address] [id number], [place] [address] January, [facility] [place] [facility] [address] [id number] [place] [address] January, [facility] [place] [facility] [address] [id number] [place] [address] Dec, [facility] [place] [facility] [address] [id number] [place] [address] Dec, [facility] [place] [facility] [address] [id number] [place] [address] 15 Nov, 2012 [facility] [place] [facility] [address] [id number] [place] [address] 05 Nov, 2012 [facility] [place] [facility] [address] [id number] [place] [address] 13 Oct, 2012 [facility] [place] [facility] [address] [id number] [place] [address] 05 Oct, 2012 [facility] [place] [facility] [address] [id number] [place] [address] Aug, [facility] [place] [facility] [address] [id number] [place] [address] Aug, [facility] [place] [facility] [address] [id number] [place] [address] Aug, [facility] [place] [facility] [address] [id number] [place] [address] Aug, [facility] [place] [facility] [address] [id number] [place] [address] Aug, [facility] [place] [facility] [address] [id number] [place] [address] Aug, [facility] [place] [facility] [address] [id number] [place] [address] Jun, [facility] [place] [facility] [address] [id number] [place] [address] Jun, [facility] [place] [facility] [address] [id number] [place] [address] May, [facility] [place] [facility] [address] [id number] [place] [address] May, [facility] [place] [facility] [address] [id number] [place] [address] Apr, [facility] [place] [facility] [address] [id number] [place] [address] 30 Apr, 2012 [facility] [place] [facility] [address] [id number] [place] [address] Apr, [facility] [place] [facility] [address] [id number] [place] [address] Mar, [facility] [place] [facility] [address] [id number] [place] [address] 14 Feb, 2012 [facility] [place] [facility] [address] [id number] [place] [address] January, [facility] [place] [facility] [address] [id number] [place] [address] Dec, [facility] [place] [facility] [address] [id number] [place] [address] Nov, [facility] [address] [id number] [id number] Oct, [facility] [place] [facility] [address] [id number], [place] [address] Sep, [facility] [place] [facility] [address] [id number] [place] [address] Jul, [facility] [place] [facility] [address] [id number], [place] [address] Jul, [facility] [place] [facility] [address] [id number], [place] [address] Jul, [facility] [place] [facility] [address] [id number], [place] [address] Jul, [facility] [place] [facility] [address] [id number], [place] [address] Jun, [facility] [place] [facility] [address] [id number], [place] [address] Jul, [facility] [place] [facility] [address] [id number], [place] [address] 15 Jul, 2010 [facility] [place] [facility] [address] [id number], [place] [address] 08 Jul, 2010 [facility] [address] [id number] [address] 14 Aug, 2009 [facility] [address] [id number], [place] [address] Jul, [facility] [address] [id number], [place] [address] Jun, [facility] [id number], [place] [address] Jun, [facility] [id number], [place] [address] Aug, [facility] [id number], [place] [address] Aug, [facility] [address] [id number], [place] [address] Jul, IMMUNIZATIONS No Known Immunizations SOCIAL HISTORY Never Assessed REASON FOR VISIT EMR-[facility] PLAN OF CARE VITAL SIGNS MEDICATIONS Unknown [...] Heart attack X 5 Hospitalization History [facility] [place]- Abscessed Tooth 03/19/2018
--- OUTSIDE RECORDS SUMMARY | 2019-03-24 17:43 | XMS REPORT ---
Author Author Migration, Doctor Organization [facility] Address Unknown Phone Unavailable Care Team Providers Care Pattern Generator Operator Name Role Phone Migration, Doctor Unavailable Unavailable PROBLEMS Type Condition ICD9-CM Code BNN15-NR Code Onset Dates Condition Status SNOMED Code Problem Family history of diabetes mellitus V18.0 Active 545313740 Problem Need for prophylactic vaccination and inoculation, Influenza V04.81 Active 140559254 Problem Syncope and collapse 780.2 Active 042247934 Problem Other chronic pain 338.29 Active 56582492 Problem Obstructive sleep apnea (adult) (pediatric) 327.23 Active 15079342 Problem Unspecified pruritic disorder 698.9 Active 561114607 Problem Asthma, unspecified, unspecified status 493.90 Active 74295796 Problem Coronary atherosclerosis of unspecified type of vessel, [place] or graft 414.00 Active 336825279 Problem Carpal tunnel syndrome 354.0 Active 68552976 ALLERGIES No Information ENCOUNTERS Encounter Location Date Diagnosis [facility] [address] [id number] Jun, Caries K02.9 [facility] [address] [address] Mar, [facility] [address] [id number] Mar, Dental examination Z01.20 [facility] [address] [address] January, [facility] [address] [id number] Aug, Dental caries K02.9 [facility] [address] [id number] Aug, [facility] [address] [id number] Aug, [facility] [address] [facility] [id number] [place] [id number] Aug, [facility] [address] [id number] [place] [id number] Aug, Dental examination Z01.20 [facility] [address] [id number] [place] [address] 14 Dec, 2014 [facility] [address] [id number] [place] [address] Dec, [facility] [address] [id number] [place] [address] May, [facility] [address] [id number] [place] [address] May, [facility] [address] [id number] [place] [address] Apr, [facility] [address] [id number] [place] [address] Apr, [facility] [address] [id number] [place] [address] Apr, [facility] [address] [id number] [place] [address] Apr, [facility] [address] [id number] [place] [address] Apr, [facility] [address] [id number] [place] [address] Mar, [facility] [place] [facility] [address] [id number] [place] [address] Mar, [facility] [place] [facility] [address] [id number] [place] [address] Mar, [facility] [place] [facility] [address] [id number] [place] [address] Mar, [facility] [place] [facility] [address] [id number] [place] [address] Mar, [facility] [place] [facility] [address] [id number] [place] [address] Mar, [facility] [place] [facility] [address] [id number] [place] [address] Mar, [facility] [place] [facility] [address] [id number] [place] [address] Mar, [facility] [place] [facility] [address] [id number] [place] [address] Feb, [facility] [place] [facility] [address] [id number] [place] [address] Feb, [facility] [place] [facility] [address] [id number] [place] [address] January, [facility] [place] [facility] [address] [id number] [place] [address] January, [facility] [place] [facility] [address] [id number] [place] [address] Dec, [facility] [place] [facility] [address] [id number] [place] [address] Dec, [facility] [place] [facility] [address] [id number] [place] [address] Dec, [facility] [place] [facility] [address] [id number] [place] [address] Dec, [facility] [place] [facility] [address] [id number] [place] [address] Dec, [facility] [place] [facility] [address] [id number] [place] [address] Dec, [facility] [place] [facility] [address] [id number] [place] [address] Nov, [facility] [place] [facility] [address] [id number] [place] [address] Nov, [facility] [place] [facility] [address] [id number] [place] [address] 11 Nov, 2013 [facility] [place] [facility] [address] [id number] [place] [address] 11 Nov, 2013 [facility] [place] [facility] [address] [id number] [place] [address] Nov, [facility] [place] [facility] [address] [id number] [place] [address] Nov, [facility] [place] [facility] [address] [id number] [place] [address] Nov, [facility] [place] [facility] [address] [id number] [place] [address] Nov, [facility] [place] [facility] [address] [id number] [place] [address] Nov, [facility] [place] [facility] [address] [id number] [place] [address] Oct, [facility] [place] [facility] [address] [id number] [place] [address] Oct, [facility] [place] [facility] [address] [id number] [place] [address] Sep, [facility] [place] [facility] [address] [id number] [place] [address] Sep, [facility] [place] [facility] [address] [id number] [place] [address] Sep, [facility] [place] [facility] [address] [id number] [place] [address] Sep, [facility] [place] [facility] [address] [id number] [place] [address] Aug, [facility] [place] [facility] [address] [id number] [place] [address] Aug, [facility] [place] [facility] [address] [id number] [place] [address] Aug, [facility] [place] [facility] [address] [id number] [place] [address] Jul, [facility] [place] [facility] [address] [id number] [place] [address] Jul, [facility] [place] [facility] [address] [id number] [place] [address] Jul, [facility] [place] [facility] [address] [id number] [place] [address] Jul, [facility] [place] [facility] [address] [id number] [place] [address] Jul, [facility] [place] [facility] [address] [id number] [place] [address] Jun, [facility] [place] [facility] [address] [id number] [place] [address] Jun, [facility] [place] [facility] [address] [id number], [place] [address] Jun, [facility] [place] [facility] [address] [id number] [place] [address] Jun, [facility] [place] [facility] [address] [id number], [place] [address] Jun, [facility] [place] [facility] [address] [id number], [place] [address] Jun, [facility] [place] [facility] [address] [id number], [place] [address] Jun, [facility] [place] [facility] [address] [id number], [place] [address] Jun, [facility] [place] [facility] [address] [id number], [place] [address] Jun, [facility] [place] [facility] [address] [id number], [place] [address] Jun, [facility] [place] [facility] [address] [id number], [place] [address] Jun, [facility] [address] [id number] [place] [address] Jun, [facility] [place] [facility] [address] [id number] [place] [address] Jun, [facility] [place] [facility] [address] [id number] [place] [address] May, [facility] [place] [facility] [address] [id number] [place] [address] May, [facility] [address] [id number] [place] [address] May, [facility] [place] [facility] [address] [id number] [place] [address] May, [facility] [address] [id number] [place] [address] Apr, [facility] [place] [facility] [address] [id number] [place] [address] Apr, [facility] [address] [id number] [place] [address] Apr, [facility] [place] [facility] [address] [id number] [place] [address] Mar, [facility] [place] [facility] [address] [id number], [place] [address] January, [facility] [place] [facility] [address] [id number], [place] [address] January, [facility] [place] [facility] [address] [id number] [place] [address] January, [facility] [place] [facility] [address] [id number] [place] [address] Dec, [facility] [place] [facility] [address] [id number] [place] [address] Dec, [facility] [place] [facility] [address] [id number] [place] [address] 15 Nov, 2012 [facility] [place] [facility] [address] [id number] [place] [address] 05 Nov, 2012 [facility] [place] [facility] [address] [id number] [place] [address] 13 Oct, 2012 [facility] [place] [facility] [address] [id number] [place] [address] 05 Oct, 2012 [facility] [place] [facility] [address] [id number] [place] [address] Aug, [facility] [place] [facility] [address] [id number] [place] [address] Aug, [facility] [place] [facility] [address] [id number] [place] [address] Aug, [facility] [place] [facility] [address] [id number] [place] [address] Aug, [facility] [place] [facility] [address] [id number] [place] [address] Aug, [facility] [place] [facility] [address] [id number] [place] [address] Aug, [facility] [place] [facility] [address] [id number] [place] [address] Jun, [facility] [place] [facility] [address] [id number] [place] [address] Jun, [facility] [place] [facility] [address] [id number] [place] [address] May, [facility] [place] [facility] [address] [id number] [place] [address] May, [facility] [place] [facility] [address] [id number] [place] [address] Apr, [facility] [place] [facility] [address] [id number] [place] [address] 30 Apr, 2012 [facility] [place] [facility] [address] [id number] [place] [address] Apr, [facility] [place] [facility] [address] [id number] [place] [address] Mar, [facility] [place] [facility] [address] [id number] [place] [address] 14 Feb, 2012 [facility] [place] [facility] [address] [id number] [place] [address] January, [facility] [place] [facility] [address] [id number] [place] [address] Dec, [facility] [place] [facility] [address] [id number] [place] [address] Nov, [facility] [address] [id number] [id number] Oct, [facility] [place] [facility] [address] [id number], [place] [address] Sep, [facility] [place] [facility] [address] [id number] [place] [address] Jul, [facility] [place] [facility] [address] [id number], [place] [address] Jul, [facility] [place] [facility] [address] [id number], [place] [address] Jul, [facility] [place] [facility] [address] [id number], [place] [address] Jul, [facility] [place] [facility] [address] [id number], [place] [address] Jun, [facility] [place] [facility] [address] [id number], [place] [address] Jul, [facility] [place] [facility] [address] [id number], [place] [address] 15 Jul, 2010 [facility] [place] [facility] [address] [id number], [place] [address] 08 Jul, 2010 [facility] [address] [id number], [place] [address] 14 Aug, 2009 [facility] [address] [id number], [place] [address] Jul, [facility] [address] [id number], [place] [address] Jun, [facility] [id number], [place] [address] Jun, [facility] [id number], [place] [address] Aug, [facility] [id number], [place] [address] Aug, [facility] [address] [id number], [place] [address] Jul, IMMUNIZATIONS No Known Immunizations SOCIAL HISTORY Never Assessed REASON FOR VISIT EMR-[facility] [place] VITAL [...] Heart attack X 5 Hospitalization History [facility] [place]- Abscessed Tooth 03/19/2018
--- OUTSIDE RECORDS SUMMARY | 2019-03-24 17:43 | XMS REPORT ---
Author Author Migration, Doctor Organization [facility] Address Unknown Phone Unavailable Care Team Providers Care Manufacturing Cost Estimator Name Role Phone Migration, Doctor Unavailable Unavailable PROBLEMS Type Condition ICD9-CM Code ONW54-FY Code Onset Dates Condition Status SNOMED Code Problem Family history of diabetes mellitus V18.0 Active 267591347 Problem Need for prophylactic vaccination and inoculation, Influenza V04.81 Active 032279620 Problem Syncope and collapse 780.2 Active 904434708 Problem Other chronic pain 338.29 Active 51256584 Problem Obstructive sleep apnea (adult) (pediatric) 327.23 Active 85182321 Problem Unspecified pruritic disorder 698.9 Active 994556969 Problem Asthma, unspecified, unspecified status 493.90 Active 43269725 Problem Coronary atherosclerosis of unspecified type of vessel, [place] or graft 414.00 Active 906240221 Problem Carpal tunnel syndrome 354.0 Active [id number] ALLERGIES No Information ENCOUNTERS Encounter Location Date Diagnosis [facility] [address] [id number] Jun, Caries K02.9 [facility] [address] [address] Mar, [facility] [address] [id number] Mar, Dental examination Z01.20 [facility] [address] [address] January, [facility] [address] [id number] Aug, Dental caries K02.9 [facility] [address] [id number] Aug, [facility] [address] [id number] Aug, [facility] [address] [facility] [id number] [place] [id number] Aug, [facility] [address] [id number] [place] [id number] Aug, Dental examination Z01.20 [facility] [address] [id number] [place] [address] 14 Dec, 2014 [facility] [address] [id number] [place] [address] Dec, [facility] [address] [id number] [place] [address] May, [facility] [address] [id number] [place] [address] May, [facility] [address] [id number] [place] [address] Apr, [facility] [address] [id number] [place] [address] Apr, [facility] [address] [id number] [place] [address] Apr, [facility] [address] [id number] [place] [address] Apr, [facility] [address] [id number] [place] [address] Apr, [facility] [address] [id number] [place] [address] Mar, [facility] [place] [facility] [address] [id number] [place] [address] Mar, [facility] [place] [facility] [address] [id number] [place] [address] Mar, [facility] [place] [facility] [address] [id number] [place] [address] Mar, [facility] [place] [facility] [address] [id number] [place] [address] Mar, [facility] [place] [facility] [address] [id number] [place] [address] Mar, [facility] [place] [facility] [address] [id number] [place] [address] Mar, [facility] [place] [facility] [address] [id number] [place] [address] Mar, [facility] [place] [facility] [address] [id number] [place] [address] Feb, [facility] [place] [facility] [address] [id number] [place] [address] Feb, [facility] [place] [facility] [address] [id number] [place] [address] January, [facility] [place] [facility] [address] [id number] [place] [address] January, [facility] [place] [facility] [address] [id number] [place] [address] Dec, [facility] [place] [facility] [address] [id number] [place] [address] Dec, [facility] [place] [facility] [address] [id number] [place] [address] Dec, [facility] [place] [facility] [address] [id number] [place] [address] Dec, [facility] [place] [facility] [address] [id number] [place] [address] Dec, [facility] [place] [facility] [address] [id number] [place] [address] Dec, [facility] [place] [facility] [address] [id number] [place] [address] Nov, [facility] [place] [facility] [address] [id number] [place] [address] Nov, [facility] [place] [facility] [address] [id number] [place] [address] 11 Nov, 2013 [facility] [place] [facility] [address] [id number] [place] [address] 11 Nov, 2013 [facility] [place] [facility] [address] [id number] [place] [address] Nov, [facility] [place] [facility] [address] [id number] [place] [address] Nov, [facility] [place] [facility] [address] [id number] [place] [address] Nov, [facility] [place] [facility] [address] [id number] [place] [address] Nov, [facility] [place] [facility] [address] [id number] [place] [address] Nov, [facility] [place] [facility] [address] [id number] [place] [address] Oct, [facility] [place] [facility] [address] [id number] [place] [address] Oct, [facility] [place] [facility] [address] [id number] [place] [address] Sep, [facility] [place] [facility] [address] [id number] [place] [address] Sep, [facility] [place] [facility] [address] [id number] [place] [address] Sep, [facility] [place] [facility] [address] [id number] [place] [address] Sep, [facility] [place] [facility] [address] [id number] [place] [address] Aug, [facility] [place] [facility] [address] [id number] [place] [address] Aug, [facility] [place] [facility] [address] [id number] [place] [address] Aug, [facility] [place] [facility] [address] [id number] [place] [address] Jul, [facility] [place] [facility] [address] [id number] [place] [address] Jul, [facility] [place] [facility] [address] [id number] [place] [address] Jul, [facility] [place] [facility] [address] [id number] [place] [address] Jul, [facility] [place] [facility] [address] [id number] [place] [address] Jul, [facility] [place] [facility] [address] [id number] [place] [address] Jun, [facility] [place] [facility] [address] [id number] [place] [address] Jun, [facility] [place] [facility] [address] [id number], [place] [address] Jun, [facility] [place] [facility] [address] [id number] [place] [address] Jun, [facility] [place] [facility] [address] [id number], [place] [address] Jun, [facility] [place] [facility] [address] [id number], [place] [address] Jun, [facility] [place] [facility] [address] [id number], [place] [address] Jun, [facility] [place] [facility] [address] [id number], [place] [address] Jun, [facility] [place] [facility] [address] [id number], [place] [address] Jun, [facility] [place] [facility] [address] [id number], [place] [address] Jun, [facility] [place] [facility] [address] [id number], [place] [address] Jun, [facility] [address] [id number] [place] [address] Jun, [facility] [place] [facility] [address] [id number] [place] [address] Jun, [facility] [place] [facility] [address] [id number] [place] [address] May, [facility] [place] [facility] [address] [id number] [place] [address] May, [facility] [address] [id number] [place] [address] May, [facility] [place] [facility] [address] [id number] [place] [address] May, [facility] [address] [id number] [place] [address] Apr, [facility] [place] [facility] [address] [id number] [place] [address] Apr, [facility] [address] [id number] [place] [address] Apr, [facility] [place] [facility] [address] [id number] [place] [address] Mar, [facility] [place] [facility] [address] [id number], [place] [address] January, [facility] [place] [facility] [address] [id number], [place] [address] January, [facility] [place] [facility] [address] [id number] [place] [address] January, [facility] [place] [facility] [address] [id number] [place] [address] Dec, [facility] [place] [facility] [address] [id number] [place] [address] Dec, [facility] [place] [facility] [address] [id number] [place] [address] 15 Nov, 2012 [facility] [place] [facility] [address] [id number] [place] [address] 05 Nov, 2012 [facility] [place] [facility] [address] [id number] [place] [address] 13 Oct, 2012 [facility] [place] [facility] [address] [id number] [place] [address] 05 Oct, 2012 [facility] [place] [facility] [address] [id number] [place] [address] Aug, [facility] [place] [facility] [address] [id number] [place] [address] Aug, [facility] [place] [facility] [address] [id number] [place] [address] Aug, [facility] [place] [facility] [address] [id number] [place] [address] Aug, [facility] [place] [facility] [address] [id number] [place] [address] Aug, [facility] [place] [facility] [address] [id number] [place] [address] Aug, [facility] [place] [facility] [address] [id number] [place] [address] Jun, [facility] [place] [facility] [address] [id number] [place] [address] Jun, [facility] [place] [facility] [address] [id number] [place] [address] May, [facility] [place] [facility] [address] [id number] [place] [address] May, [facility] [place] [facility] [address] [id number] [place] [address] Apr, [facility] [place] [facility] [address] [id number] [place] [address] 30 Apr, 2012 [facility] [place] [facility] [address] [id number] [place] [address] Apr, [facility] [place] [facility] [address] [id number] [place] [address] Mar, [facility] [place] [facility] [address] [id number] [place] [address] 14 Feb, 2012 [facility] [place] [facility] [address] [id number] [place] [address] January, [facility] [place] [facility] [address] [id number] [place] [address] Dec, [facility] [place] [facility] [address] [id number] [place] [address] Nov, [facility] [address] [id number] [id number] Oct, [facility] [place] [facility] [address] [id number], [place] [address] Sep, [facility] [place] [facility] [address] [id number] [place] [address] Jul, [facility] [place] [facility] [address] [id number], [place] [address] Jul, [facility] [place] [facility] [address] [id number], [place] [address] Jul, [facility] [place] [facility] [address] [id number], [place] [address] Jul, [facility] [place] [facility] [address] [id number], [place] [address] Jun, [facility] [place] [facility] [address] [id number], [place] [address] Jul, [facility] [place] [facility] [address] [id number], [place] [address] 15 Jul, 2010 [facility] [place] [facility] [address] [id number], [place] [address] 08 Jul, 2010 [facility] [address] [id number], [place] [address] 14 Aug, 2009 [facility] [address] [id number], [place] [address] Jul, [facility] [address] [id number], [place] [address] Jun, [facility] [id number], [place] [address] Jun, [facility] [id number], [place] [address] Aug, [facility] [address]00565[address], [place] [address] Aug, [facility] [address] [id number], [place] [address] Jul, IMMUNIZATIONS No Known Immunizations SOCIAL HISTORY [...] Heart attack X 5 Hospitalization History ED [place]- Abscessed Tooth 03/19/2018
--- OUTSIDE RECORDS SUMMARY | 2019-03-24 17:44 | XMS REPORT ---
Author Author Migration, Doctor Organization [facility] Address Unknown Phone Unavailable Care Team Providers Care International Relations Teacher Name Role Phone Migration, Doctor Unavailable Unavailable PROBLEMS Type Condition ICD9-CM Code WAB83-AJ Code Onset Dates Condition Status SNOMED Code Problem Family history of diabetes mellitus V18.0 Active 332745216 Problem Need for prophylactic vaccination and inoculation, Influenza V04.81 Active 932705748 Problem Syncope and collapse 780.2 Active 362438122 Problem Other chronic pain 338.29 Active 76570169 Problem Obstructive sleep apnea (adult) (pediatric) 327.23 Active 38297760 Problem Unspecified pruritic disorder 698.9 Active 899740621 Problem Asthma, unspecified, unspecified status 493.90 Active 33196606 Problem Coronary atherosclerosis of unspecified type of vessel, [place] or graft 414.00 Active 686933299 Problem Carpal tunnel syndrome 354.0 Active 97410033 ALLERGIES No Information ENCOUNTERS Encounter Location Date Diagnosis [facility] [address] [id number] Jun, Caries K02.9 [facility] [address] [address] Mar, [facility] [address] [id number] Mar, Dental examination Z01.20 [facility] [address] [address] January, [facility] [address] [id number] Aug, Dental caries K02.9 [facility] [address] [id number] Aug, [facility] [address] [id number] Aug[facility] [address] [facility] [id number] [place] [id number] Aug, [facility] [address] [id number] [place] [id number] Aug, Dental examination Z01.20 [facility] [address] [id number] [place] [address] 14 Dec, 2014 [facility] [address] [id number] [place] [address] Dec, [facility] [address] [id number] [place] [address] May, [facility] [address] [id number] [place] [address] May, [facility] [address] [id number] [place] [address] Apr, [facility] [address] [id number] [place] [address] Apr, [facility] [address] [id number] [place] [address] Apr, [facility] [address] [id number] [place] [address] Apr, [facility] [address] [id number] [place] [address] Apr, [facility] [address] [id number] [place] [address] Mar, [facility] [place] [facility] [address] [id number] [place] [address] Mar, [facility] [place] [facility] [address] [id number] [place] [address] Mar, [facility] [place] [facility] [address] [id number] [place] [address] Mar, [facility] [place] [facility] [address] [id number] [place] [address] Mar, [facility] [place] [facility] [address] [id number] [place] [address] Mar, [facility] [place] [facility] [address] [id number] [place] [address] Mar, [facility] [place] [facility] [address] [id number] [place] [address] Mar, [facility] [place] [facility] [address] [id number] [place] [address] Feb, [facility] [place] [facility] [address] [id number] [place] [address] Feb, [facility] [place] [facility] [address] [id number] [place] [address] January, [facility] [place] [facility] [address] [id number] [place] [address] January, [facility] [place] [facility] [address] [id number] [place] [address] Dec, [facility] [place] [facility] [address] [id number] [place] [address] Dec, [facility] [place] [facility] [address] [id number] [place] [address] Dec, [facility] [place] [facility] [address] [id number] [place] [address] Dec, [facility] [place] [facility] [address] [id number] [place] [address] Dec, [facility] [place] [facility] [address] [id number] [place] [address] Dec, [facility] [place] [facility] [address] [id number] [place] [address] Nov, [facility] [place] [facility] [address] [id number] [place] [address] Nov, [facility] [place] [facility] [address] [id number] [place] [address] 11 Nov, 2013 [facility] [place] [facility] [address] [id number] [place] [address] 11 Nov, 2013 [facility] [place] [facility] [address] [id number] [place] [address] Nov, [facility] [place] [facility] [address] [id number] [place] [address] Nov, [facility] [place] [facility] [address] [id number] [place] [address] Nov, [facility] [place] [facility] [address] [id number] [place] [address] Nov, [facility] [place] [facility] [address] [id number] [place] [address] Nov, [facility] [place] [facility] [address] [id number] [place] [address] Oct, [facility] [place] [facility] [address] [id number] [place] [address] Oct, [facility] [place] [facility] [address] [id number] [place] [address] Sep, [facility] [place] [facility] [address] [id number] [place] [address] Sep, [facility] [place] [facility] [address] [id number] [place] [address] Sep, [facility] [place] [facility] [address] [id number] [place] [address] Sep, [facility] [place] [facility] [address] [id number] [place] [address] Aug, [facility] [place] [facility] [address] [id number] [place] [address] Aug, [facility] [place] [facility] [address] [id number] [place] [address] Aug, [facility] [place] [facility] [address] [id number] [place] [address] Jul, [facility] [place] [facility] [address] [id number] [place] [address] Jul, [facility] [place] [facility] [address] [id number] [place] [address] Jul, [facility] [place] [facility] [address] [id number] [place] [address] Jul, [facility] [place] [facility] [address] [id number] [place] [address] Jul, [facility] [place] [facility] [address] [id number] [place] [address] Jun, [facility] [place] [facility] [address] [id number] [place] [address] Jun, [facility] [place] [facility] [address] [id number] [place] [address] Jun, [facility] [place] [facility] [address] [id number] [place] [address] Jun, [facility] [place] [facility] [address] [id number] [place] [address] Jun, [facility] [place] [facility] [address] [id number] [place] [address] Jun, [facility] [place] [facility] [address] [id number] [place] [address] Jun, [facility] [place] [facility] [address] [id number] [place] [address] Jun, [facility] [place] [facility] [address] [id number] [place] [address] Jun, [facility] [place] [facility] [address] [id number] [place] [address] Jun, [facility] [place] [facility] [address] [id number] [place] [address] Jun, [facility] [address] [id number] [place] [address] Jun, [facility] [place] [facility] [address] [id number] [place] [address] Jun, [facility] [place] [facility] [address] [id number] [place] [address] May, [facility] [place] [facility] [address] [id number] [place] [address] May, [facility] [address] [id number] [place] [address] May, [facility] [place] [facility] [address] [id number] [place] [address] May, [facility] [address] [id number] [place] [address] Apr, [facility] [place] [facility] [address] [id number] [place] [address] Apr, [facility] [address] [id number] [place] [address] Apr, [facility] [place] [facility] [address] [id number] [place] [address] Mar, [facility] [place] [facility] [address] [id number] [place] [address] January, [facility] [place] [facility] [address] [id number] [place] [address] January, [facility] [place] [facility] [address] [id number] [place] [address] January, [facility] [place] [facility] [address] [id number] [place] [address] Dec, [facility] [place] [facility] [address] [id number] [place] [address] Dec, [facility] [place] [facility] [address] [id number] [place] [address] 15 Nov, 2012 [facility] [place] [facility] [address] [id number] [place] [address] 05 Nov, 2012 [facility] [place] [facility] [address] [id number] [place] [address] 13 Oct, 2012 [facility] [place] [facility] [address] [id number] [place] [address] 05 Oct, 2012 [facility] [place] [facility] [address] [id number] [place] [address] Aug, [facility] [place] [facility] [address] [id number] [place] [address] Aug, [facility] [place] [facility] [address] [id number] [place] [address] Aug, [facility] [place] [facility] [address] [id number] [place] [address] Aug, [facility] [place] [facility] [address] [id number] [place] [address] Aug, [facility] [place] [facility] [address] [id number] [place] [address] Aug, [facility] [place] [facility] [address] [id number] [place] [address] Jun, [facility] [place] [facility] [address] [id number] [place] [address] Jun, [facility] [place] [facility] [address] [id number] [place] [address] May, [facility] [place] [facility] [address] [id number] [place] [address] May, [facility] [place] [facility] [address] [id number] [place] [address] Apr, [facility] [place] [facility] [address] [id number] [place] [address] 30 Apr, 2012 [facility] [place] [facility] [address] [id number] [place] [address] Apr, [facility] [place] [facility] [address] [id number] [place] [address] Mar, [facility] [place] [facility] [address] [id number] [place] [address] 14 Feb, 2012 [facility] [place] [facility] [address] [id number] [place] [address] January, [facility] [place] [facility] [address] [id number] [place] [address] Dec, [facility] [place] [facility] [address] [id number] [place] [address] Nov, [facility] [address] [id number] [id number] Oct, [facility] [place] [facility] [address] [id number] [place] [address] Sep, [facility] [place] [facility] [address] [id number] [place] [address] Jul, [facility] [place] [facility] [address] [id number] [place] [address] Jul, [facility] [place] [facility] [address] [id number] [place] [address] Jul, [facility] [place] [facility] [address] [id number] [place] [address] Jul, [facility] [place] [facility] [address] [id number] [place] [address] Jun, [facility] [place] [facility] [address] [id number] [place] [address] Jul, [facility] [place] [facility] [address] [id number] [place] [address] 15 Jul, 2010 [facility] [place] [facility] [address] [id number] [place] [address] 08 Jul, 2010 [facility] [address] [id number] [place] [address] 14 Aug, 2009 [facility] [address] [id number] [place] [address] Jul, [facility] [address] [id number] [place] [address] Jun, [facility] [id number] [place] [address] Jun, [facility] [id number] [place] [address] Aug, [facility] [id number] [place] [address] Aug, [facility] [address] [id number] [place] [address] Jul, IMMUNIZATIONS No Known Immunizations SOCIAL HISTORY Never Assessed REASON FOR VISIT EMR-[facility] PLAN OF CARE VITAL SIGNS [...] Heart attack X 5 Hospitalization History ED [place]- Abscessed Tooth 03/19/2018
--- OUTSIDE RECORDS SUMMARY | 2019-03-24 17:49 | XMS REPORT | Continuity of Care Document ---
Author Organization Unknown Address Unknown Allergies Active Description Code Type Severity Reaction Onset Reported/Identified Relationship to Patient Clinical Status Yes Penicillins [id number] Drug Allergy Unknown N/A 01/14/2006 Yes Penicillins Drug Allergy 10/11/2008 Yes Penicillins Drug Allergy N/A N/A 10/11/2008 Yes ketorolac [id number] Drug Allergy Unknown N/A 03/30/2010 Yes Oxycodone Drug Allergy N/A N/A 03/24/2014 Yes ketorolac [id number] Drug Allergy Mild ITCHING 11/05/2018 Yes Penicillins [id number] Drug Allergy Mild ITCHING 11/05/2018 Medications There is no data. Problems Date Dx Coded Attending Type Code Diagnosis Diagnosed By 08/04/2008 KEE MAYERS APRN 719.46 Pain In Joint Involving Lower Leg 08/04/2008 KEE MAYERS APRN 719.46 Pain In Joint Involving Lower Leg 08/04/2008 KEE MAYERS APRN 719.46 Pain In Joint Involving Lower Leg 08/04/2008 719.46 Pain In Joint Involving Lower Leg 08/04/2008 ZAFAR AVALOS MD 719.46 Pain In Joint Involving Lower Leg 08/04/2008 ANDIE HERNÁNDEZ DO 719.46 Pain In Joint Involving Lower Leg 08/04/2008 KEE MAYERS APRN 719.46 Pain In Joint Involving Lower Leg 08/04/2008 KEE MAYERS APRN 719.46 Pain In Joint Involving Lower Leg 08/04/2008 KEE MAYERS APRN 719.46 Pain In Joint Involving Lower Leg 08/31/2008 KEE MAYERS APRN 786.3 HEMOPTYSIS 08/31/2008 KEE MAYERS APRN 786.3 HEMOPTYSIS 08/31/2008 KEE MAYERS APRN 786.3 HEMOPTYSIS 08/31/2008 786.3 HEMOPTYSIS 08/31/2008 ZAFAR AVALOS MD 786.3 HEMOPTYSIS 08/31/2008 ANDIE HERNÁNDEZ DO 786.3 HEMOPTYSIS 08/31/2008 RIANA GERARD, KEE S 786.3 HEMOPTYSIS 08/31/2008 RIANA GERARD, KEE S 786.3 HEMOPTYSIS 08/31/2008 RIANA GERARD, KEE S 786.3 HEMOPTYSIS 09/18/2008 RIANA GERARD, KEE S 728.82 Foreign Body Granuloma Of Muscle 09/18/2008 RIANA GERARD KEE S 728.82 Foreign Body Granuloma Of Muscle 09/18/2008 RIANA GERARD KEE S 728.82 Foreign Body Granuloma Of Muscle 09/18/2008 728.82 Foreign Body Granuloma Of Muscle 09/18/2008 ZAFAR AVALOS MD 728.82 Foreign Body Granuloma Of Muscle 09/18/2008 ANDIE HERNÁNDEZ DO 728.82 Foreign Body Granuloma Of Muscle 09/18/2008 RIANA TAR POT MAN, KEE S 728.82 Foreign Body Granuloma Of Muscle 09/18/2008 RIANA [employer], KEE S 728.82 Foreign Body Granuloma Of Muscle 09/18/2008 RIANA [employer], KEE S 728.82 Foreign Body Granuloma Of Muscle 09/20/2008 RIANA GERARD, KEE S 272.4 HYPERLIPIDEMIA 09/20/2008 RIANAYAMILEX GERARD, KEE S 728.85 Spasm Of Muscle 09/20/2008 RIANA GERARD, KEE S 272.4 HYPERLIPIDEMIA 09/20/2008 [employer] [employer], KEE S 728.85 Spasm Of Muscle 09/20/2008 RIANA GERARD, KEE S 272.4 HYPERLIPIDEMIA 09/20/2008 RIANA GERARD, KEE S 728.85 Spasm Of Muscle 09/20/2008 272.4 HYPERLIPIDEMIA 09/20/2008 728.85 Spasm Of Muscle 09/20/2008 ZAFAR AVALOS MD 272.4 HYPERLIPIDEMIA 09/20/2008 ZAFAR AVALOS MD 728.85 Spasm Of Muscle 09/20/2008 HERNÁNDEZ DO, ANDIE K 272.4 HYPERLIPIDEMIA 09/20/2008 HERNÁNDEZ DO ANDIE K 728.85 Spasm Of Muscle 09/20/2008 R[place] [employer], KEE S 272.4 HYPERLIPIDEMIA 09/20/2008 R[employer] [employer], KEE S 728.85 Spasm Of Muscle 09/20/2008 R[employer] [employer], KEE S 272.4 HYPERLIPIDEMIA 09/20/2008 [employer] [employer], KEE S 728.85 Spasm Of Muscle 09/20/2008 R[employer] [employer], KEE S 272.4 HYPERLIPIDEMIA 09/20/2008 [employer] [employer], KEE S 728.85 Spasm Of Muscle 09/23/2008 RIANA [employer] KEE S 270.7 HYPERGLYCEMIA 09/23/2008 R[employer] [employer], KEE S 715.90 Osteoarthrosis Unspecified Whether Generalized Or Localized Involving Unspecified Site 09/23/2008 R[place] [employer], KEE S 270.7 HYPERGLYCEMIA 09/23/2008 AMINA MAYERS APRNNDA S 715.90 Osteoarthrosis Unspecified Whether Generalized Or Localized Involving Unspecified Site 09/23/2008 [employer] [employer], KEE S 270.7 HYPERGLYCEMIA 09/23/2008 AMINA MAYERS APRNNDA S 715.90 Osteoarthrosis Unspecified Whether Generalized Or Localized Involving Unspecified Site 09/23/2008 270.7 HYPERGLYCEMIA 09/23/2008 715.90 Osteoarthrosis Unspecified Whether Generalized Or Localized Involving Unspecified Site 09/23/2008 ZAFAR AVALOS MD 270.7 HYPERGLYCEMIA 09/23/2008 ZAFAR AVALOS MD 715.90 Osteoarthrosis Unspecified Whether Generalized Or Localized Involving Unspecified Site 09/23/2008 HERNÁNDEZ DO ANDIE K 270.7 HYPERGLYCEMIA 09/23/2008 HERNÁNDEZ DO ANDIE K 715.90 Osteoarthrosis Unspecified Whether Generalized Or Localized Involving Unspecified Site 09/23/2008 RIANA GERARD KEE S 270.7 HYPERGLYCEMIA 09/23/2008 RIANA GERARD, KEE S 715.90 Osteoarthrosis Unspecified Whether Generalized Or Localized Involving Unspecified Site 09/23/2008 RIANA GERARD KEE S 270.7 HYPERGLYCEMIA 09/23/2008 RIANA GERARD KEE S 715.90 Osteoarthrosis Unspecified Whether Generalized Or Localized Involving Unspecified Site 09/23/2008 R[employer] [employer], KEE S 270.7 HYPERGLYCEMIA 09/23/2008 [employer], KEE S 715.90 Osteoarthrosis Unspecified Whether Generalized Or Localized Involving Unspecified Site 10/11/2008 [employer] [employer], KEE S 251.1 Other Specified Hypoglycemia 10/11/2008 R[employer] [employer], KEE S 272.0 Pure Hypercholesterolemia 10/11/2008 R[employer] [employer], KEE S 729.5 Pain In Limb 10/11/2008 [employer] [employer], KEE S 251.1 Other Specified Hypoglycemia 10/11/2008 [employer] [employer], KEE S 272.0 Pure Hypercholesterolemia 10/11/2008 R[employer] [employer], KEE S 729.5 Pain In Limb 10/11/2008 R[employer] [employer], KEE S 251.1 Other Specified Hypoglycemia 10/11/2008 [employer], KEE S 272.0 Pure Hypercholesterolemia 10/11/2008 R[employer] [employer], KEE S 729.5 Pain In Limb 10/11/2008 [...] K 729.5 Pain In Limb 10/11/2008 [employer] [employer], KEE S 251.1 Other Specified Hypoglycemia 10/11/2008 [employer] [employer], KEE S 272.0 Pure Hypercholesterolemia 10/11/2008 R[employer], KEE S 729.5 Pain In Limb 10/11/2008 [employer] [employer], KEE S 251.1 Other Specified Hypoglycemia 10/11/2008 [employer] [employer], KEE S 272.0 Pure Hypercholesterolemia 10/11/2008 R[employer] [employer], KEE S 729.5 Pain In Limb 10/11/2008 [employer] [employer], KEE S 251.1 Other Specified Hypoglycemia 10/11/2008 [employer] [employer], KEE S 272.0 Pure Hypercholesterolemia 10/11/2008 [employer] [employer], KEE S 729.5 Pain In Limb 01/10/2009 [employer] [employer], KEE S 401.1 ESSENTIAL HYPERTENSION BENIGN 01/10/2009 [employer] [employer], KEE S 401.1 ESSENTIAL HYPERTENSION BENIGN 01/10/2009 [employer] [employer], KEE S 401.1 ESSENTIAL HYPERTENSION BENIGN 01/10/2009 401.1 ESSENTIAL HYPERTENSION BENIGN 01/10/2009 ZAFAR AVALOS MD 401.1 ESSENTIAL HYPERTENSION BENIGN 01/10/2009 ANDIE HERNÁNDEZ DO 401.1 ESSENTIAL HYPERTENSION BENIGN 01/10/2009 [place] [employer] [employer], KEE S 401.1 ESSENTIAL HYPERTENSION BENIGN 01/10/2009 RIANA LIN, KEE S 401.1 ESSENTIAL HYPERTENSION BENIGN 01/10/2009 [employer] [employer], KEE S 401.1 ESSENTIAL HYPERTENSION BENIGN 03/04/2009 RIANA LIN, KEE S 715.09 Djd-generalized 03/04/2009 RIANA GERARD, KEE S 715.09 Djd-generalized 03/04/2009 [place] [employer], KEE S 715.09 Djd-generalized 03/04/2009 715.09 Djd-generalized 03/04/2009 ZAFAR AVALOS MD 715.09 Djd-generalized 03/04/2009 HERNÁNDEZ DOANDIE K 715.09 Djd-generalized 03/04/2009 [employer] [employer], KEE S 715.09 Djd-generalized 03/04/2009 [employer] [employer], KEE S 715.09 Djd-generalized 03/04/2009 [employer] [employer], KEE S 715.09 Djd-generalized 04/20/2009 AMINA MAYERS APRNNDA S NODX No Diagnosis 04/20/2009 [employer] [employer], KEE S NODX No Diagnosis 04/20/2009 AMINA MAYERS APRNNDA S NODX No Diagnosis 04/20/2009 NODX No Diagnosis 04/20/2009 ZAFAR AVALOS MD NODX No Diagnosis 04/20/2009 HERNÁNDEZ DO, ANDIE K NODX No Diagnosis 04/20/2009 [employer] [employer], KEE S NODX No Diagnosis 04/20/2009 [employer] [employer], KEE S NODX No Diagnosis 04/20/2009 [employer], KEE S NODX No Diagnosis 06/22/2009 [employer] [employer], KEE S 558.9 Gastroenteritis Noninfectious 06/22/2009 [employer] [employer], KEE S 558.9 Gastroenteritis Noninfectious 06/22/2009 [employer] [employer], KEE S 558.9 Gastroenteritis Noninfectious 06/22/2009 558.9 Gastroenteritis Noninfectious 06/22/2009 ZAFAR AVALOS MD 558.9 Gastroenteritis Noninfectious 06/22/2009 ANDIE HERNÁNDEZ DO K 558.9 Gastroenteritis Noninfectious 06/22/2009 R[place] [employer], KEE S 558.9 Gastroenteritis Noninfectious 06/22/2009 R[place], KEE S 558.9 Gastroenteritis Noninfectious 06/22/2009 R[employer], KEE S 558.9 Gastroenteritis Noninfectious 02/13/2010 RIANA GERARD, KEE S 414.01 Coronary Artery Stenosis Multi-vessel 02/13/2010 RIANA GERARD KEE S 414.01 Coronary Artery Stenosis Multi-vessel 02/13/2010 RIANA GERARD KEE S 414.01 Coronary Artery Stenosis Multi-vessel 02/13/2010 414.01 Coronary Artery Stenosis Multi-vessel 02/13/2010 ZAFAR AVALOS MD 414.01 Coronary Artery Stenosis Multi-vessel 02/13/2010 BETTY SANCHEZ, ANDIE K 414.01 Coronary Artery Stenosis Multi-vessel 02/13/2010 RIANA GERARD KEE S 414.01 Coronary Artery Stenosis Multi-vessel 02/13/2010 RIANA GERARD KEE S 414.01 Coronary Artery Stenosis Multi-vessel 02/13/2010 RIANA GERARD, KEE S 414.01 Coronary Artery Stenosis Multi-vessel 04/17/2010 AMINA MAYERS APRNNDA S 305.1 NICOTINE DEPENDENCE 04/17/2010 R[place] [employer], KEE S 733.6 Costochondritis (tietze's Syndrome) 04/17/2010 [employer] [employer], KEE S 305.1 NICOTINE DEPENDENCE 04/17/2010 R[employer], KEE S 733.6 Costochondritis (tietze's Syndrome) 04/17/2010 RIANA [employer], KEE S 305.1 NICOTINE DEPENDENCE 04/17/2010 RIA[place] [employer], KEE S 733.6 Costochondritis (tietze's Syndrome) 04/17/2010 305.1 NICOTINE DEPENDENCE 04/17/2010 733.6 Costochondritis (tietze's Syndrome) 04/17/2010 ZAFAR AVALOS MD 305.1 NICOTINE DEPENDENCE 04/17/2010 ZAFAR AVALOS MD 733.6 Costochondritis (tietze's Syndrome) 04/17/2010 ANDIE HERNÁNDEZ DO K 305.1 NICOTINE DEPENDENCE 04/17/2010 ANDIE HERNÁNDEZ DO K 733.6 Costochondritis (tietze's Syndrome) 04/17/2010 R[place] [employer], KEE S 305.1 NICOTINE DEPENDENCE 04/17/2010 RIA[employer], KEE S 733.6 Costochondritis (tietze's Syndrome) 04/17/2010 R[employer] [employer], KEE S 305.1 NICOTINE DEPENDENCE 04/17/2010 R[employer] [employer], KEE S 733.6 Costochondritis (tietze's Syndrome) 04/17/2010 [employer], KEE S 305.1 NICOTINE DEPENDENCE 04/17/2010 [employer], KEE S 733.6 Costochondritis (tietze's Syndrome) 11/01/2010 [employer], KEE S 786.50 Chest Pain 11/01/2010 [employer], KEE S 786.50 Chest Pain 11/01/2010 [employer], KEE S 786.50 Chest Pain 11/01/2010 786.50 Chest Pain 11/01/2010 ZAFAR AVALOS MD 786.50 Chest Pain 11/01/2010 ANDIE HERNÁNDEZ DO K 786.50 Chest Pain 11/01/2010 [employer] [employer], KEE S 786.50 Chest Pain 11/01/2010 [employer] [employer], KEE S 786.50 Chest Pain 11/01/2010 [employer] [employer], KEE S 786.50 Chest Pain 12/12/2010 [employer], KEE S 724.2 lower back pain 12/12/2010 [employer], KEE S 724.2 lower back pain 12/12/2010 [employer] [employer], KEE S 724.2 lower back pain 12/12/2010 724.2 lower back pain 12/12/2010 ZAFAR AVALOS MD 724.2 lower back pain 12/12/2010 ANDIE HERNÁNDEZ DO 724.2 lower back pain 12/12/2010 [employer] [employer], KEE S 724.2 lower back pain 12/12/2010 [employer] [employer], KEE S 724.2 lower back pain 12/12/2010 [employer] [employer], KEE S 724.2 lower back pain 05/29/2011 [employer] [employer], KEE S 493.00 ASTHMA EXTRINSIC 05/29/2011 [employer] [employer], KEE S 493.00 ASTHMA EXTRINSIC 05/29/2011 [employer] [employer], KEE S 493.00 ASTHMA EXTRINSIC 05/29/2011 493.00 ASTHMA EXTRINSIC 05/29/2011 ZAFAR AVALOS MD 493.00 ASTHMA EXTRINSIC 05/29/2011 ANDIE HERNÁNDEZ DO K 493.00 ASTHMA EXTRINSIC 05/29/2011 [place] [employer], KEE S 493.00 ASTHMA EXTRINSIC 05/29/2011 R[place] [employer], KEE S 493.00 ASTHMA EXTRINSIC 05/29/2011 [employer] [employer], KEE S 493.00 ASTHMA EXTRINSIC 07/30/2011 [employer] [employer], KEE S 780.57 UNSPECIFIED SLEEP APNEA 07/30/2011 [employer] [employer], KEE S 780.57 UNSPECIFIED SLEEP APNEA 07/30/2011 [employer] [employer], KEE S 780.57 UNSPECIFIED SLEEP APNEA 07/30/2011 780.57 UNSPECIFIED SLEEP APNEA 07/30/2011 ZAFAR AVALOS MD 780.57 UNSPECIFIED SLEEP APNEA 07/30/2011 HERNÁNDEZ DO, ANDIE K 780.57 UNSPECIFIED SLEEP APNEA 07/30/2011 [place] [employer], KEE S 780.57 UNSPECIFIED SLEEP APNEA 07/30/2011 [employer] [employer], KEE S 780.57 UNSPECIFIED SLEEP APNEA 07/30/2011 [employer] [employer], KEE S 780.57 UNSPECIFIED SLEEP APNEA 05/08/2012 RIANA GERARD KEE S 338.29 CHRONIC PAIN 05/08/2012 RIANA GERARD KEE S 414.00 CAD 05/08/2012 [employer] [employer], KEE S V18.0 FAMILY HISTORY OF DIABETES MELLITUS 05/08/2012 RIANA GERARD KEE S 338.29 CHRONIC PAIN 05/08/2012 RIANA GERARD KEE S 414.00 CAD 05/08/2012 RIANA GERARD KEE S V18.0 FAMILY HISTORY OF DIABETES MELLITUS 05/08/2012 RIANA GERARD KEE S 338.29 CHRONIC PAIN 05/08/2012 RIANA GERARD KEE S 414.00 CAD 05/08/2012 RIANA GERARD KEE S V18.0 FAMILY HISTORY OF DIABETES MELLITUS 05/08/2012 338.29 CHRONIC PAIN 05/08/2012 414.00 CAD 05/08/2012 V18.0 FAMILY HISTORY OF DIABETES MELLITUS 05/08/2012 ZAFAR AVALOS MD 338.29 CHRONIC PAIN 05/08/2012 ZAFAR AVALOS MD 414.00 CAD 05/08/2012 ZAFAR AVALOS MD V18.0 FAMILY HISTORY OF DIABETES MELLITUS 05/08/2012 HERNÁNDEZ DO, ANDIE K 338.29 CHRONIC PAIN 05/08/2012 HERNÁNDEZ DO, ANDIE K 414.00 CAD 05/08/2012 HERNÁNDEZ DO, ANDIE K V18.0 FAMILY HISTORY OF DIABETES MELLITUS 05/08/2012 RIANA GERARD KEE S 338.29 CHRONIC PAIN 05/08/2012 RIANA GERARD KEE S 414.00 CAD 05/08/2012 RIANA GERARD KEE S V18.0 FAMILY HISTORY OF DIABETES MELLITUS 05/08/2012 RIANA GERARD KEE S 338.29 CHRONIC PAIN 05/08/2012 RIANA GERARD KEE S 414.00 CAD 05/08/2012 [place] [employer], KEE S V18.0 FAMILY HISTORY OF DIABETES MELLITUS 05/08/2012 [employer] [employer], KEE S 338.29 CHRONIC PAIN 05/08/2012 [employer] [employer], KEE S 414.00 CAD 05/08/2012 [employer] [employer], KEE S V18.0 FAMILY HISTORY OF DIABETES MELLITUS 06/24/2012 [employer] [employer], KEE S V04.81 FLU DX (MEDICARE ONLY) 06/24/2012 [employer] [employer], KEE S V04.81 FLU DX (MEDICARE ONLY) 06/24/2012 [employer] [employer], KEE S V04.81 FLU DX (MEDICARE ONLY) 06/24/2012 V04.81 FLU DX (MEDICARE ONLY) 06/24/2012 ZAFAR AVALOS MD V04.81 FLU DX (MEDICARE ONLY) 06/24/2012 ANDIE HERNÁNDEZ DO V04.81 FLU DX (MEDICARE ONLY) 06/24/2012 RIAAN [employer], KEE S V04.81 FLU DX (MEDICARE ONLY) 06/24/2012 RIANA LIN, KEE S V04.81 FLU DX (MEDICARE ONLY) 06/24/2012 [employer], KEE S V04.81 FLU DX (MEDICARE ONLY) 10/22/2012 RAINA TAR [employer], KEE S 354.0 CARPAL TUNNEL SYNDROME 10/22/2012 354.0 CARPAL TUNNEL SYNDROME 10/22/2012 ZAFAR AVALOS MD 354.0 CARPAL TUNNEL SYNDROME 10/22/2012 ANDIE HERNÁNDEZ DO 354.0 CARPAL TUNNEL SYNDROME 10/22/2012 [employer] [employer], KEE S 354.0 CARPAL TUNNEL SYNDROME 10/22/2012 [employer] [employer], KEE S 354.0 CARPAL TUNNEL SYNDROME 10/22/2012 [employer] [employer], KEE S 354.0 CARPAL TUNNEL SYNDROME 04/13/2013 780.2 SYNCOPE 04/13/2013 ZAFAR AVALOS MD 780.2 SYNCOPE 04/13/2013 ANDIE HERNÁNDEZ DO 780.2 SYNCOPE 04/13/2013 RIANA LIN, KEE S 780.2 SYNCOPE 04/13/2013 [employer] [employer], KEE S 780.2 SYNCOPE 04/13/2013 [employer] [employer], KEE S 780.2 SYNCOPE 04/17/2013 493.90 ASTHMA UNSPECIFIED 04/17/2013 ZAFAR AVALOS MD 493.90 ASTHMA UNSPECIFIED 04/17/2013 ANDIE HERNÁNDEZ DO 493.90 ASTHMA UNSPECIFIED 04/17/2013 [place] [employer], KEE S 493.90 ASTHMA UNSPECIFIED 04/17/2013 [employer] [employer], KEE S 493.90 ASTHMA UNSPECIFIED 04/17/2013 [employer] [employer], KEE S 493.90 ASTHMA UNSPECIFIED 04/27/2013 ZAFAR AVALOS MD 327.23 sleep apnea 04/27/2013 ANDIE HERNÁNDEZ DO 327.23 sleep apnea 04/27/2013 [place] [employer], KEE S 327.23 sleep apnea 04/27/2013 [employer] [employer], KEE S 327.23 sleep apnea 04/27/2013 [place] [employer], EKE S 327.23 sleep apnea 11/10/2013 [employer] [employer], KEE S 698.9 PRURITUS NOS 11/10/2013 [employer] [employer], KEE S 698.9 PRURITUS NOS 11/10/2013 [employer], KEE S 698.9 PRURITUS NOS 01/13/2014 TIMO SEYMOUR MD Ot 845.00 SPRAIN OF ANKLE NOS 01/13/2014 TIMO SEYMOUR MD Ot 959.7 LOWER LEG INJURY NOS 01/13/2014 TIMO SEYMOUR MD Ot E000.8 OTHER EXTERNAL CAUSE STATUS 01/13/2014 TIMO SEYMOUR MD Ot E849.0 ACCIDENT IN HOME 01/13/2014 TIMO SEYMOUR MD Ot E888.9 FALL NOS 11/23/2014 GELLENDER DO, LAZARO Olson Ot 272.0 11/23/2014 GELLENDER DO, LAZARO Olson Ot 278.01 11/23/2014 GELLENDER DO, LAZARO Olson Ot 305.1 11/23/2014 GELLENDER DOLAZARO Ot 327.23 11/23/2014 GELLENDER DOLAZARO Ot 338.29 11/23/2014 GELLENDER DOLAZARO Ot 401.9 11/23/2014 GELLENDER DOLAZARO Ot 411.1 11/23/2014 [facility] Olson Ot 412 11/23/2014 [facility], LAZARO Olson Ot 414.00 11/23/2014 [facility], LAZARO Olson Ot 414.2 11/23/2014 [facility], LAZARO Olson Ot 414.8 11/23/2014 [facility] DO, LAZARO Olson Ot 493.20 11/23/2014 [facility] LAZ[facility]O Olson Ot 715.90 11/23/2014 [facility], LAZARO Olson Ot 724.5 11/23/2014 [facility], LAZARO Olson Ot V12.54 11/23/2014 GELLENDER DO, LAZARO Olson Ot V15.81 11/23/2014 [facility], LAZARO Olson Ot V45.02 11/23/2014 [facility], LAZARO Olson Ot V45.81 11/23/2014 [facility], LAZARO Olson Ot V45.82 11/23/2014 [facility], LAZARO Olson Ot V85.41 11/26/2014 [facility], LAZARO Olson Ot 272.0 PURE HYPERCHOLESTEROLEM 11/26/2014 [facility], LAZARO Olson Ot 278.01 MORBID OBESITY 11/26/2014 [facility], LAZARO Olson Ot 305.1 TOBACCO USE DISORDER 11/26/2014 [facility], LAZARO Olson Ot 327.23 OBSTRUCTIVE SLEEP APNEA (ADULT) (PEDIATR 11/26/2014 [facility], LAZARO Olson Ot 338.29 OTHER CHRONIC PAIN 11/26/2014 [facility], LAZARO Olson Ot 401.9 HYPERTENSION NOS 11/26/2014 [facility], LAZARO Olson Ot 411.1 INTERMED CORONARY SYND 11/26/2014 [facility], LAZARO Olson Ot 412 OLD MYOCARDIAL INFARCT 11/26/2014 [facility], LAZARO Olson Ot 414.00 CORON ATHEROSCLER NOS TYPE VESSEL, NATIV 11/26/2014 [facility], LAZARO Olson Ot 414.2 CHRONIC TOTAL OCCLUSION OF CORONARY SOFYA 11/26/2014 [facility], LAZARO Olson Ot 414.8 CHR ISCHEMIC HRT DIS NEC 11/26/2014 [facility], LAZARO Olson Ot 493.20 CHRONIC OBSTRUCTIVE ASTHMA, NOS 11/26/2014 [facility], LAZARO Olson Ot 715.90 OSTEOARTHROS NOS-UNSPEC 11/26/2014 [facility], LAZARO Olson Ot 724.5 BACKACHE NOS 11/26/2014 GELLENDER DO, LAZARO Olson Ot V12.54 PERSONAL HX OF [...] Olson Ot V45.82 11/30/2014 GELLENDER DO, LAZARO Wesley Ot V85.41 06/14/2015 BRIGIDA SWANSON, COLETTE Li Ot K02.9 DENTAL CARIES, UNSPECIFIED 06/14/2015 BRIGIDA SWANSON, COLETTE Li Ot K08.8 OTHER SPECIFIED DISORDERS OF TEETH AND S 06/14/2015 JOS DIAS MACHINE FOLDER Ot 401.9 06/14/2015 JOS DIAS MACHINE FOLDER Ot 414.00 06/14/2015 JOS DIAS MACHINE FOLDER Ot 429.9 06/14/2015 JOS DIAS MACHINE FOLDER Ot V45.02 07/26/2015 KATHLEEN SWANSON FACC, ALI FACP CCDS Ot E66.01 MORBID (SEVERE) OBESITY DUE TO EXCESS CA 07/26/2015 KATHLEEN SWANSON FACC, ALI FACP CCDS Ot E78.5 HYPERLIPIDEMIA, UNSPECIFIED 07/26/2015 KATHLEEN SWANSON FACC, ALFREDO FACP CCDS Ot F17.200 NICOTINE DEPENDENCE, UNSPECIFIED, UNCOMP 07/26/2015 KATHLEEN SWANSON FACC, ALI FACP CCDS Ot I25.10 ATHSCL HEART DISEASE OF [place] CORONARY 07/26/2015 ALFREDO WANG MD, FACC FACP CCDS Ot I25.5 ISCHEMIC CARDIOMYOPATHY 07/26/2015 KATHLEEN SWANSON FACC, ALFREDO FACP CCDS Ot J44.9 CHRONIC OBSTRUCTIVE PULMONARY DISEASE, U 07/26/2015 KATHLEEN SWANSON FACC, ALFREDO FACP CCDS Ot Z45.02 ENCNTR FOR ADJUST AND MGMT OF AUTOMATIC 07/26/2015 ALFREDO WANG MD, FACC FACP CCDS Ot Z68.41 BODY MASS INDEX (BMI) 40.0-44.9, ADULT 07/26/2015 KATHLEEN SWANSON FACC, ALI FACP CCDS Ot Z79.899 OTHER [facility] (CURRENT) DRUG THERAPY 07/26/2015 ALFREDO WANG MD, FACC FACP CCDS Ot Z91.19 PATIENT'S NONCOMPLIANCE W [facility] 07/26/2015 KATHLEEN SWANSON FACC ALI FACP CCDS Ot Z98.61 CORONARY ANGIOPLASTY STATUS 11/04/2015 ALFREDO WANG MD, FACC FACP CCDS Ot 272.4 11/04/2015 ALFREDO WANG MD, FACC FACP CCDS Ot 278.01 11/04/2015 ALFREDO WANG MD, FACC FACP CCDS Ot 327.23 11/04/2015 ALFREDO WANG MD, FACC FACP CCDS Ot 414.00 11/04/2015 ALFREDO WANG MD, FACC FACP CCDS Ot 429.9 11/04/2015 KATHLEEN PATTERSON, ALI FACP CCDS Ot 496 11/04/2015 KATHLEEN SWANSON FACC, ALFREDO FACP CCDS Ot V85.41 12/30/2015 KATHLEEN SWANSON FACC, ALI FACP CCDS Ot 272.4 HYPERLIPIDEMIA NEC/NOS 12/30/2015 KATHLEEN SWANSON FACC, ALI FACP CCDS Ot 278.01 MORBID OBESITY 12/30/2015 KATHLEEN SWANSON FACC, ALI FACP CCDS Ot 327.23 OBSTRUCTIVE SLEEP APNEA (ADULT) (PEDIATR 12/30/2015 KATHLEEN SWANSON FACC, ALI FACP CCDS Ot 414.00 CORON ATHEROSCLER NOS TYPE VESSEL, NATIV 12/30/2015 KATHLEEN SWANSON FACC, ALFREDO FACP CCDS Ot 429.9 HEART DISEASE NOS 12/30/2015 KATHLEEN SWANSON FACC, ALFREDO FACP CCDS Ot 496 CHR AIRWAY OBSTRUCT NEC 12/30/2015 KATHLEEN SWANSON [facility], ALI FACP CCDS Ot V85.41 BODY MASS INDEX 40.0-44.9, ADULT 03/22/2016 IRINEOMA, JOS L MACHINE FOLDER Ot R07.9 CHEST PAIN, UNSPECIFIED 04/19/2016 BAIMA, JOS L MACHINE FOLDER Ot E78.4 OTHER HYPERLIPIDEMIA 04/19/2016 BAIMA, JOS L MACHINE FOLDER Ot G47.33 OBSTRUCTIVE SLEEP APNEA (ADULT) (PEDIATR 04/19/2016 BAIMA, JOS L MACHINE FOLDER Ot I25.10 ATHSCL HEART DISEASE OF [place] CORONARY 04/19/2016 IRINEOMA, JOS L MACHINE FOLDER Ot I25.5 ISCHEMIC CARDIOMYOPATHY 04/19/2016 IRINEOMA, JOS L MACHINE FOLDER Ot I65.23 OCCLUSION AND STENOSIS OF BILATERAL FISCHER 04/19/2016 IRINEOMA, JOS L MACHINE FOLDER Ot J43.8 OTHER EMPHYSEMA 04/19/2016 BAIMA, JOS L MACHINE FOLDER Ot R07.9 CHEST PAIN, UNSPECIFIED 04/19/2016 BAIMA, JOS L MACHINE FOLDER Ot Z72.0 TOBACCO USE 05/01/2016 IRINEOMA, JOS L MACHINE FOLDER Ot 401.9 HYPERTENSION NOS 05/01/2016 BAIMA, JOS L MACHINE FOLDER Ot 414.00 CORON ATHEROSCLER NOS TYPE VESSEL, NATIV 05/01/2016 BAIMA, JOS L MACHINE FOLDER Ot 429.9 HEART DISEASE NOS 05/01/2016 JOS DIAS MACHINE FOLDER Ot V45.02 AUTO IMPLANTABLE CARDIAC DEFIBRILLATOR I 05/01/2016 JOS DIAS MACHINE FOLDER Ot E78.4 OTHER HYPERLIPIDEMIA 05/01/2016 JOS DIAS MACHINE FOLDER Ot G47.33 OBSTRUCTIVE SLEEP APNEA (ADULT) (PEDIATR 05/01/2016 JOS DIAS MACHINE FOLDER Ot I25.10 ATHSCL HEART DISEASE OF [place] CORONARY 05/01/2016 IRINEOJOS LIN MACHINE FOLDER Ot I25.5 ISCHEMIC CARDIOMYOPATHY 05/01/2016 IRINEOJOS LIN MACHINE FOLDER Ot I65.23 OCCLUSION AND STENOSIS OF BILATERAL [place]CH[place] 05/01/2016 JOS DIAS MACHINE FOLDER Ot J43.8 OTHER EMPHYSEMA 05/01/2016 JOS DIAS MACHINE FOLDER Ot R07.9 CHEST PAIN, UNSPECIFIED 05/01/2016 JOS DIAS MACHINE FOLDER Ot Z72.0 TOBACCO USE 05/02/2016 KATHLEEN SWANSON FACC, ALI FACP CCDS Ot E78.5 HYPERLIPIDEMIA, UNSPECIFIED 05/02/2016 KATHLEEN SWANSON FACC, ALI FACP CCDS Ot G47.30 SLEEP APNEA, UNSPECIFIED 05/02/2016 KATHLEEN SWANSON FACC, ALI FACP CCDS Ot I25.119 ATHSCL HEART DISEASE OF [place] COR ART W 05/02/2016 KATHLEEN SWANSON FACC, ALFREDO FACP CCDS Ot 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 05/02/2016 KATHLEEN SWANSON FACC, ALI FACP CCDS Ot I50.32 CHRONIC DIASTOLIC (CONGESTIVE) HEART JUD 05/02/2016 KATHLEEN SWANSON FACC, ALFREDO FACP CCDS Ot J44.9 CHRONIC OBSTRUCTIVE PULMONARY DISEASE, U 05/02/2016 KATHLEEN SWANSON FACC, ALI FACP CCDS Ot T82.857A STENOSIS OF CARDIAC PROSTH DEV/GRFT, INI 05/02/2016 ALFREDO WANG MD, FACC FACP CCDS Ot Z72.0 TOBACCO USE 05/02/2016 KATHLEEN SWANSON FACC, ALI FACP CCDS Ot Z79.899 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 EDUCATION TUTOR (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) DRUG THERAPY 05/02/2016 KATHLEEN SWANSON FACC, ALI FACP CCDS Ot Z91.19 PATIENT'S NONCOMPLIANCE W [facility] 05/02/2016 KATHLEEN SWANSON FACC, ALI FACP CCDS Ot Z95.810 PRESENCE OF AUTOMATIC (IMPLANTABLE) CARD 05/08/2016 JOS DIAS MACHINE FOLDER Ot 401.9 HYPERTENSION NOS 05/08/2016 JOS DIAS MACHINE FOLDER Ot 414.00 CORON ATHEROSCLER NOS TYPE VESSEL, NATIV 05/08/2016 JOS DIAS L MACHINE FOLDER Ot 429.9 HEART DISEASE NOS 05/08/2016 JOS DIAS MACHINE FOLDER Ot V45.02 AUTO IMPLANTABLE CARDIAC DEFIBRILLATOR I 05/08/2016 JOS DIAS L MACHINE FOLDER Ot E78.4 OTHER HYPERLIPIDEMIA 05/08/2016 JOS DIAS L MACHINE FOLDER Ot G47.33 OBSTRUCTIVE SLEEP APNEA (ADULT) (PEDIATR 05/08/2016 JOS DIAS L MACHINE FOLDER Ot I25.10 ATHSCL HEART DISEASE OF [place] CORONARY 05/08/2016 JOS DIAS L MACHINE FOLDER Ot I25.5 ISCHEMIC CARDIOMYOPATHY 05/08/2016 JOS DIAS MACHINE FOLDER Ot I65.23 OCCLUSION AND STENOSIS OF BILATERAL FISCHER 05/08/2016 IRINEOJOS LIN L MACHINE FOLDER Ot J43.8 OTHER EMPHYSEMA 05/08/2016 BAIJOS LIN L MACHINE FOLDER Ot R07.9 CHEST PAIN, UNSPECIFIED 05/08/2016 BAIJOS LIN L MACHINE FOLDER Ot Z72.0 TOBACCO USE 05/08/2016 LAZARO CARREON DO Ot M54.32 SCIATICA, LEFT SIDE 05/08/2016 KATHLEEN SWANSON FACC, ALI FACP CCDS Ot E78.5 HYPERLIPIDEMIA, UNSPECIFIED 05/08/2016 KATHLEEN SWANSON FACC, ALI FACP CCDS Ot G47.30 SLEEP APNEA, UNSPECIFIED 05/08/2016 KATHLEEN SWANSON FACC, ALI FACP CCDS Ot I25.119 ATHSCL HEART DISEASE OF [place] COR ART W 05/08/2016 KATHLEEN SWANSON FACC, ALI FACP CCDS Ot 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 05/08/2016 KATHLEEN SWANSON FACC, ALI FACP CCDS [...] FACC, ALI FACP CCDS Ot Z79.899 OTHER MCC (CURRENT) DRUG THERAPY 05/08/2016 KATHLEEN SWANSON FACC, ALI FACP CCDS Ot Z91.19 PATIENT'S NONCOMPLIANCE W [facility] 05/08/2016 KATHLEEN SWANSON FACC, ALI FACP CCDS Ot Z95.810 PRESENCE OF AUTOMATIC (IMPLANTABLE) CARD 05/10/2016 KATHLEEN SWANSON FACC, ALI FACP CCDS Ot E78.5 HYPERLIPIDEMIA, UNSPECIFIED 05/10/2016 KATHLEEN SWANSON FACC, ALI FACP CCDS Ot G47.30 SLEEP APNEA, UNSPECIFIED 05/10/2016 KATHLEEN SWANSON FACC, ALI FACP CCDS Ot I25.119 ATHSCL HEART DISEASE OF [place] COR ART W 05/10/2016 KATHLEEN SWANSON FACC, ALI FACP CCDS Ot 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 05/10/2016 KATHLEEN SWANSON FACC, ALI FACP CCDS Ot I50.32 CHRONIC DIASTOLIC (CONGESTIVE) HEART JUD 05/10/2016 KATHLEEN SWANSON FACC, ALI FACP CCDS Ot J44.9 CHRONIC OBSTRUCTIVE PULMONARY DISEASE, U 05/10/2016 KATHLEEN SWANSON FACC, ALI FACP CCDS Ot T82.857A STENOSIS OF CARDIAC PROSTH DEV/GRFT, INI 05/10/2016 KATHLEEN SWANSON FACC, ALI FACP CCDS Ot Z72.0 TOBACCO USE 05/10/2016 KATHLEEN SWANSON FACC, ALI FACP CCDS Ot Z79.899 OTHER MCC (CURRENT) DRUG THERAPY 05/10/2016 KATHLEEN SWANSON FACC, ALI FACP CCDS Ot Z91.19 PATIENT'S NONCOMPLIANCE W [facility] 05/10/2016 KATHLEEN SWANSON FACC, ALI FACP CCDS Ot Z95.810 PRESENCE OF AUTOMATIC (IMPLANTABLE) CARD 05/11/2016 KATHLEEN SWANSON FACC, ALI FACP CCDS Ot E78.5 HYPERLIPIDEMIA, UNSPECIFIED 05/11/2016 KATHLEEN SWANSON FACC, ALI FACP CCDS Ot G47.30 SLEEP APNEA, UNSPECIFIED 05/11/2016 KATHLEEN SWANSON FACC, ALI FACP CCDS Ot I25.119 ATHSCL HEART DISEASE OF [place] COR ART W 05/11/2016 KATHLEEN SWANSON FACC, ALFREDO PATTERSONP CCDS Ot 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 05/11/2016 KATHLEEN SWANSON FACC, ALFREDO FACP CCDS [...] FACC, ALFREDO FACP CCDS Ot Z79.899 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 EDUCATION TUTOR (CURRENT) DRUG THERAPY 05/11/2016 KATHLEEN SWANSON FACC, ALFREDO FACP CCDS Ot Z91.19 PATIENT'S NONCOMPLIANCE W [facility] 05/11/2016 ALFREDO WANG MD, FACC FACP CCDS Ot Z95.810 PRESENCE OF AUTOMATIC (IMPLANTABLE) CARD 05/25/2016 LAZARO CARREON DO Ot M54.32 SCIATICA, LEFT SIDE 06/14/2016 LAZARO CARREON DO Ot M54.32 SCIATICA, LEFT SIDE 07/04/2016 LAZARO CARREON DO A Ot M54.32 SCIATICA, LEFT SIDE 07/14/2016 ALLYN BIRDP Ot I10 ESSENTIAL (PRIMARY) HYPERTENSION 07/14/2016 ALLYN BIRD MACHINE FOLDER Ot I25.10 ATHSCL HEART DISEASE OF [place] CORONARY 07/14/2016 ALLYN BIRD MACHINE FOLDER Ot J44.9 CHRONIC OBSTRUCTIVE PULMONARY DISEASE, U 07/14/2016 ALLYN BIRD MACHINE FOLDER Ot M47.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, DIONTE 07/14/2016 ALLYN BIRD MACHINE FOLDER Ot M48.06 SPINAL STENOSIS, LUMBAR REGION 07/14/2016 ALLYN BIRD MACHINE FOLDER Ot M54.41 LUMBAGO WITH SCIATICA, RIGHT SIDE 07/14/2016 ALLYN BIRD MACHINE FOLDER Ot Z79.02 ELEMENTARY EDUCATION TUTOR (CURRENT) USE OF ANTITHROMBOTI 07/14/2016 ALLYN BIRDP Ot Z79.82 ELEMENTARY EDUCATION TUTOR (CURRENT) USE OF ASPIRIN 07/14/2016 MARGE, ALLYN MACHINE FOLDER Ot Z79.899 OTHER MCC (CURRENT) DRUG THERAPY 07/14/2016 MARGEALLYN Powell MACHINE FOLDER Ot Z95.0 PRESENCE OF CARDIAC PACEMAKER 07/14/2016 MARGE ALLYN MACHINE FOLDER Ot Z95.5 PRESENCE OF CORONARY ANGIOPLASTY IMPLANT 07/16/2016 MARGE, ALLYN MACHINE FOLDER Ot I10 ESSENTIAL (PRIMARY) HYPERTENSION 07/16/2016 MARGE, ALLYN MACHINE FOLDER Ot I25.10 ATHSCL HEART DISEASE OF [place] CORONARY 07/16/2016 MARGE, ALLYN MACHINE FOLDER Ot J44.9 CHRONIC OBSTRUCTIVE PULMONARY DISEASE, U 07/16/2016 MARGE ALLYN MACHINE FOLDER Ot M47.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, DIONTE 07/16/2016 MARGE, ALLYN MACHINE FOLDER Ot M48.06 SPINAL STENOSIS, LUMBAR REGION 07/16/2016 MARGE ALLYN MACHINE FOLDER Ot M54.41 LUMBAGO WITH SCIATICA, RIGHT SIDE 07/16/2016 MARGE, ALLYN MACHINE FOLDER Ot Z79.02 MCC (CURRENT) USE OF ANTITHROMBOTI 07/16/2016 MARGE ALLYN MACHINE FOLDER Ot Z79.82 ELEMENTARY EDUCATION TUTOR (CURRENT) USE OF ASPIRIN 07/16/2016 MARGE ALLYN MACHINE FOLDER Ot Z79.899 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 EDUCATION TUTOR (CURRENT) DRUG THERAPY 07/16/2016 MARGE ALLYN MACHINE FOLDER Ot Z95.0 PRESENCE OF CARDIAC PACEMAKER 07/16/2016 MARGE, ALLYN MACHINE FOLDER Ot Z95.5 PRESENCE OF CORONARY ANGIOPLASTY IMPLANT 07/21/2016 MARGE ALLYN MACHINE FOLDER Ot I10 ESSENTIAL (PRIMARY) HYPERTENSION 07/21/2016 ALLYN BIRD MACHINE FOLDER Ot I25.10 ATHSCL HEART DISEASE OF [place] CORONARY 07/21/2016 ALLYN BIRD MACHINE FOLDER Ot J44.9 CHRONIC OBSTRUCTIVE PULMONARY DISEASE, U 07/21/2016 MARGE ALLYN MACHINE FOLDER Ot M47.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, DIONTE 07/21/2016 MARGE, ALLYN MACHINE FOLDER Ot M48.06 SPINAL STENOSIS, LUMBAR REGION 07/21/2016 MARGE ALLYN MACHINE FOLDER Ot M54.41 LUMBAGO WITH SCIATICA, RIGHT SIDE 07/21/2016 MARGE ALLYN MACHINE FOLDER Ot Z79.02 ELEMENTARY EDUCATION TUTOR (CURRENT) USE OF ANTITHROMBOTI 07/21/2016 MARGE, ALLYN MACHINE FOLDER Ot Z79.82 MCC (CURRENT) USE OF ASPIRIN 07/21/2016 ALLYN BIRD MACHINE FOLDER Ot Z79.899 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 EDUCATION TUTOR (CURRENT) DRUG THERAPY 07/21/2016 ALLYN BIRDP Ot Z95.0 PRESENCE OF CARDIAC PACEMAKER 07/21/2016 MARGEALLYN PowellP Ot Z95.5 PRESENCE OF CORONARY ANGIOPLASTY IMPLANT 12/25/2016 KATHLEEN SWANSON FACC, ALI FACP CCDS Ot I25.10 ATHSCL HEART DISEASE OF [place] CORONARY 12/26/2016 KATHLEEN SWANSON FACC, ALI FACP CCDS Ot E66.09 OTHER OBESITY DUE TO EXCESS CALORIES 12/26/2016 KATHLEEN SWANSON FACC, ALI FACP CCDS Ot E78.4 OTHER HYPERLIPIDEMIA 12/26/2016 KATHLEEN SWANSON FACC, ALI FACP CCDS Ot G47.33 OBSTRUCTIVE SLEEP APNEA (ADULT) (PEDIATR 12/26/2016 KATHLEEN PATTERSONC, ALI FACP CCDS Ot G89.4 CHRONIC PAIN SYNDROME 12/26/2016 KATHLEEN SWANSON FACC, ALI FACP CCDS Ot I25.10 ATHSCL HEART DISEASE OF [place] CORONARY 12/26/2016 KATHLEEN SWANSON FACC, ALI FACP [...] G47.33 OBSTRUCTIVE SLEEP APNEA (ADULT) (PEDIATR 01/21/2017 KTAHLEEN PATTERSONC, ALI FACP CCDS Ot G89.4 CHRONIC PAIN SYNDROME 01/21/2017 KATHLEEN SWANSON FACC, ALI FACP CCDS Ot I25.10 ATHSCL HEART DISEASE OF [place] CORONARY 01/21/2017 KATHLEEN PATTERSONC, ALI FACP CCDS [...] CCDS Ot I25.110 ATHSCL HEART DISEASE OF [place] COR ART W 01/23/2017 KATHLEEN SWANSON FACC, ALFREDO FACP CCDS Ot J44.9 CHRONIC OBSTRUCTIVE PULMONARY DISEASE, U 01/23/2017 KATHLEEN SWANSON FACC, ALI FACP CCDS Ot T82.857A STENOSIS OF OTHER CARDIAC PROSTH DEV/GRF 01/23/2017 KATHLEEN SWANSON FACC, ALFREDO FACP CCDS Ot Z72.0 TOBACCO USE 01/23/2017 KATHLEEN SWANSON FACC, ALI FACP CCDS Ot Z79.899 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 EDUCATION TUTOR (CURRENT) DRUG THERAPY 01/23/2017 KATHLEEN SWANSON FACC, ALI FACP CCDS Ot Z91.19 PATIENT'S NONCOMPLIANCE W [facility] 01/23/2017 KATHLEEN SWANSON FACC, ALI FACP CCDS Ot Z95.1 PRESENCE OF AORTOCORONARY BYPASS GRAFT 01/23/2017 KATHLEEN SWANSON FACC, ALFREDO FACP CCDS Ot Z95.810 PRESENCE OF AUTOMATIC (IMPLANTABLE) CARD 12/10/2017 JOS DIAS MACHINE FOLDER Ot 401.9 HYPERTENSION NOS 12/10/2017 JOS DIAS MACHINE FOLDER Ot 414.00 CORON ATHEROSCLER NOS TYPE VESSEL, NATIV 12/10/2017 JOS DIAS MACHINE FOLDER Ot 429.9 HEART DISEASE NOS 12/10/2017 JOS DIAS MACHINE FOLDER Ot V45.02 AUTO IMPLANTABLE CARDIAC DEFIBRILLATOR I 12/10/2017 JOS DIAS MACHINE FOLDER Ot E78.4 OTHER HYPERLIPIDEMIA 12/10/2017 JOS DIAS MACHINE FOLDER Ot G47.33 OBSTRUCTIVE SLEEP APNEA (ADULT) (PEDIATR 12/10/2017 JOS DIAS MACHINE FOLDER Ot I25.10 ATHSCL HEART DISEASE OF [place] CORONARY 12/10/2017 JOS DIAS MACHINE FOLDER Ot I25.5 ISCHEMIC CARDIOMYOPATHY 12/10/2017 JOS DIAS MACHINE FOLDER Ot I65.23 OCCLUSION AND STENOSIS OF BILATERAL FISCHER 12/10/2017 JOS DIAS MACHINE FOLDER Ot J43.8 OTHER EMPHYSEMA 12/10/2017 IRINEOJOS LIN MACHINE FOLDER Ot R07.9 CHEST PAIN, UNSPECIFIED 12/10/2017 IRINEOJOS LIN MACHINE FOLDER Ot Z72.0 TOBACCO USE 12/10/2017 VELMA DO, LAZARO A Ot M54.32 SCIATICA, LEFT SIDE 12/10/2017 [facility] [place] [facility], LAZARO A Ot M54.32 SCIATICA, LEFT [...] CCDS Ot I25.10 ATHSCL HEART DISEASE OF [place] CORONARY 12/10/2017 KATHLEEN SWANSON FACC, ALI FACP [...] APNEA (ADULT) (PEDIATR 12/11/2017 KATHLEEN SWANSON FACC, ALI FACP CCDS Ot I25.10 ATHSCL HEART DISEASE OF [place] CORONARY 12/11/2017 KATHLEEN SWANSON FACC, ALI FACP CCDS Ot I25.5 ISCHEMIC CARDIOMYOPATHY 12/11/2017 KATHLEEN SWANSON FACC, ALI FACP CCDS Ot J44.9 CHRONIC OBSTRUCTIVE PULMONARY DISEASE, U 12/11/2017 KATHLEEN SWANSON FACC, ALI FACP CCDS Ot J45.909 UNSPECIFIED ASTHMA, UNCOMPLICATED 12/11/2017 KATHLEEN SWANSON FACC, ALI FACP CCDS Ot R56.9 UNSPECIFIED CONVULSIONS 12/11/2017 KATHLEEN SWANSON FACC, ALFREDO FACP CCDS Ot Z68.41 BODY MASS INDEX (BMI) 40.0-44.9, ADULT 12/11/2017 KATHLEEN SWANSON FACC, ALFREDO FACP CCDS Ot Z79.02 MCC (CURRENT) USE OF ANTITHROMBOTI 12/11/2017 KATHLEEN SWANSON FACC, ALFREDO FACP CCDS Ot Z79.82 ELEMENTARY EDUCATION TUTOR (CURRENT) USE OF ASPIRIN 12/11/2017 KATHLEEN SWANSON FACC, ALFREDO FACP CCDS Ot Z79.899 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 EDUCATION TUTOR (CURRENT) DRUG THERAPY 12/11/2017 ALFREDO WANG MD, FACC FACP CCDS Ot Z91.14 PATIENT'S OTHER NONCOMPLIANCE WITH MEDIC 12/11/2017 KATHLEEN SWANSON FACC, ALI FACP CCDS Ot Z95.0 PRESENCE OF CARDIAC PACEMAKER 12/11/2017 KATHLEEN SWANSON FACC, ALFREDO FACP CCDS Ot Z95.5 PRESENCE OF CORONARY ANGIOPLASTY IMPLANT 12/11/2017 KATHLEEN SWANSON FACC, ALFREDO FACP CCDS Ot Z95.810 PRESENCE OF AUTOMATIC (IMPLANTABLE) CARD 12/12/2017 ALFREDO WANG MD, FACC FACP CCDS Ot E66.01 MORBID (SEVERE) OBESITY DUE TO EXCESS CA 12/12/2017 KATHLEEN SWANSON FACC, ALI FACP CCDS Ot E78.5 HYPERLIPIDEMIA, UNSPECIFIED 12/12/2017 KATHLEEN SWANSON FACC, ALI FACP CCDS Ot F17.210 NICOTINE DEPENDENCE, CIGARETTES, UNCOMPL 12/12/2017 KATHLEEN SWANSON FACC, ALI FACP CCDS Ot G47.33 OBSTRUCTIVE SLEEP APNEA (ADULT) (PEDIATR 12/12/2017 KATHLEEN SWANSON FACC, ALI FACP CCDS Ot I25.10 ATHSCL HEART DISEASE OF [place] CORONARY 12/12/2017 KATHLEEN SWANSON FACC, ALI FACP CCDS Ot I25.5 ISCHEMIC CARDIOMYOPATHY 12/12/2017 KATHLEEN SWANSON FACC, ALI FACP CCDS Ot J44.9 CHRONIC OBSTRUCTIVE PULMONARY DISEASE, U 12/12/2017 KATHLEEN SWANSON FACC, ALI FACP CCDS Ot J45.909 UNSPECIFIED ASTHMA, UNCOMPLICATED 12/12/2017 KATHLEEN SWANSON FACC, ALI FACP CCDS Ot R56.9 UNSPECIFIED CONVULSIONS 12/12/2017 KATHLEEN SWANSON FACC, ALI FACP CCDS Ot Z68.41 BODY MASS INDEX (BMI) 40.0-44.9, ADULT 12/12/2017 KATHLEEN SWANSON FACC, ALI FACP CCDS Ot Z79.02 MCC (CURRENT) USE OF ANTITHROMBOTI 12/12/2017 KATHLEEN SWANSON FACC, ALFREDO FACP CCDS Ot Z79.82 ELEMENTARY EDUCATION TUTOR (CURRENT) USE OF ASPIRIN 12/12/2017 KATHLEEN SWANSON FACC, ALI FACP CCDS Ot Z79.899 OTHER MCC (CURRENT) DRUG THERAPY 12/12/2017 KATHLEEN SWANSON FACC, ALI FACP CCDS Ot Z91.14 PATIENT'S OTHER NONCOMPLIANCE WITH MEDIC 12/12/2017 KATHLEEN SWANSON FACC, ALI FACP CCDS Ot Z95.5 PRESENCE OF CORONARY ANGIOPLASTY IMPLANT 12/12/2017 ALFREDO WANG MD, FACC FACP CCDS Ot Z95.810 PRESENCE OF AUTOMATIC (IMPLANTABLE) CARD 03/19/2018 DESHAWN DING DO Ot E78.00 PURE HYPERCHOLESTEROLEMIA, UNSPECIFIED 03/19/2018 FREDERICK DING DOA K Ot F17.290 NICOTINE DEPENDENCE, OTHER TOBACCO PRODU 03/19/2018 FREDERICK DING DOA K Ot I10 ESSENTIAL (PRIMARY) HYPERTENSION 03/19/2018 FREDERICK DING DOA K Ot I25.10 ATHSCL HEART DISEASE OF [place] CORONARY 03/19/2018 FREDERICK DING DOA K Ot I25.2 OLD MYOCARDIAL INFARCTION 03/19/2018 FREDERICK DING DOA K Ot J32.9 CHRONIC SINUSITIS, UNSPECIFIED 03/19/2018 FREDERICK DING DOA K Ot J44.9 CHRONIC OBSTRUCTIVE PULMONARY DISEASE, U 03/19/2018 TOÑA SANCHEZ DESHAWN Miguel Ot K04.7 PERIAPICAL ABSCESS WITHOUT SINUS 03/19/2018 TOÑA DO DESHAWN Miguel Ot K05.219 AGGRESSIVE PERIODONTITIS, LOCALIZED, UNS 03/19/2018 TOÑA SANCHEZ DESHAWN Miguel Ot Z79.82 ELEMENTARY EDUCATION TUTOR (CURRENT) USE OF ASPIRIN 03/19/2018 TOÑA FREDERICKA Miguel Ot Z86.73 PRSNL HX OF TIA (TIA), AND CEREB INFRC W 03/19/2018 TOÑA SANCHEZ DESHAWN Miguel Ot Z88.0 ALLERGY STATUS TO PENICILLIN 03/19/2018 TOÑA DODESHAWN K Ot Z88.6 ALLERGY STATUS TO ANALGESIC AGENT STATUS 03/19/2018 TOÑA DODESHAWN Ot Z90.89 ACQUIRED ABSENCE OF OTHER ORGANS 03/19/2018 TOÑA DODESHAWN Ot Z95.1 PRESENCE OF AORTOCORONARY BYPASS GRAFT 03/19/2018 TOÑA DESHAWN Ot Z95.810 PRESENCE OF AUTOMATIC (IMPLANTABLE) CARD 03/21/2018 TOÑA DO DESHAWN Miguel Ot E78.00 PURE HYPERCHOLESTEROLEMIA, UNSPECIFIED 03/21/2018 TOÑA SANCHEZ DESHAWN Miguel Ot F17.290 NICOTINE DEPENDENCE, OTHER TOBACCO PRODU 03/21/2018 TOÑA DESHAWN Ot I10 ESSENTIAL (PRIMARY) HYPERTENSION 03/21/2018 TOÑA SANCHEZ DESHAWN Miguel Ot I25.10 ATHSCL HEART DISEASE OF [place] CORONARY 03/21/2018 TOÑA DO DESHAWN Miguel Ot I25.2 OLD MYOCARDIAL INFARCTION 03/21/2018 DESHAWN DING DO Ot J32.9 CHRONIC SINUSITIS, UNSPECIFIED 03/21/2018 TOÑA SANCHEZ DESHAWN Miguel Ot J44.9 CHRONIC OBSTRUCTIVE PULMONARY DISEASE, U 03/21/2018 TOÑA SANCHEZ DESHAWN Rivera Ot K04.7 PERIAPICAL ABSCESS WITHOUT SINUS 03/21/2018 TOÑA SANCHEZ DESHAWN Miguel Ot K05.219 AGGRESSIVE PERIODONTITIS, LOCALIZED, UNS 03/21/2018 TOÑA DO DESHAWN K Ot Z79.82 MCC (CURRENT) USE OF ASPIRIN 03/21/2018 TOÑA DESHAWN Ot Z86.73 PRSNL HX OF TIA (TIA), AND CEREB INFRC W 03/21/2018 TOÑADESHAWN Shaw DO Ot Z88.0 ALLERGY STATUS TO PENICILLIN 03/21/2018 DESHAWN DING DO Ot Z88.6 ALLERGY STATUS TO ANALGESIC AGENT STATUS 03/21/2018 DESHAWN DING DO Ot Z90.89 ACQUIRED ABSENCE OF OTHER ORGANS 03/21/2018 DESHAWN DING DO Ot Z95.1 PRESENCE OF AORTOCORONARY BYPASS GRAFT 03/21/2018 DESHAWN DING DO Ot Z95.810 PRESENCE OF AUTOMATIC (IMPLANTABLE) CARD 05/26/2018 ARUN JOS L MACHINE FOLDER Ot 401.9 HYPERTENSION NOS 05/26/2018 BAIMA, JOS L MACHINE FOLDER Ot 414.00 CORON ATHEROSCLER NOS TYPE VESSEL, NATIV 05/26/2018 BAIMA JOS L MACHINE FOLDER Ot 429.9 HEART DISEASE NOS 05/26/2018 BAIDELIA JOS L MACHINE FOLDER Ot V45.02 AUTO IMPLANTABLE CARDIAC DEFIBRILLATOR I 05/26/2018 BAIMA JOS L MACHINE FOLDER Ot E78.4 OTHER HYPERLIPIDEMIA 05/26/2018 BAIMA JOS L MACHINE FOLDER Ot G47.33 OBSTRUCTIVE SLEEP APNEA (ADULT) (PEDIATR 05/26/2018 BAIMA, JOS L MACHINE FOLDER Ot I25.10 ATHSCL HEART DISEASE OF [place] CORONARY 05/26/2018 BAIDELIA JOS L MACHINE FOLDER Ot I25.5 ISCHEMIC CARDIOMYOPATHY 05/26/2018 BAIDELIA JOS L MACHINE FOLDER Ot I65.23 OCCLUSION AND STENOSIS OF BILATERAL FISCHER 05/26/2018 BAIDELIA JOS L MACHINE FOLDER Ot J43.8 OTHER EMPHYSEMA 05/26/2018 ARUN JOS L MACHINE FOLDER Ot R07.9 CHEST PAIN, UNSPECIFIED 05/26/2018 ARUN JOS L MACHINE FOLDER Ot Z72.0 TOBACCO USE 05/26/2018 LAZARO CARREON DO Ot M54.32 SCIATICA, LEFT SIDE 05/26/2018 LAZARO CARREON DO Ot M54.32 SCIATICA, LEFT SIDE 05/26/2018 KATHLEEN SWANSON FACC, ALI FACP CCDS Ot E66.09 OTHER OBESITY DUE TO EXCESS CALORIES 05/26/2018 KATHLEEN SWANSON FACC, ALI FACP CCDS Ot E78.4 OTHER HYPERLIPIDEMIA 05/26/2018 KATHLEEN SWANSON FACC, ALI FACP CCDS Ot G47.33 OBSTRUCTIVE SLEEP APNEA (ADULT) (PEDIATR 05/26/2018 KATHLEEN SWANSON FACC, ALI FACP CCDS Ot G89.4 CHRONIC PAIN SYNDROME 05/26/2018 KATHLEEN SWANSON FACC, ALI FACP CCDS Ot I25.10 ATHSCL HEART DISEASE OF [place] CORONARY 05/26/2018 KATHLEEN SWANSON FAC, ALI FACP CCDS Ot I25.5 ISCHEMIC CARDIOMYOPATHY 05/26/2018 KATHLEEN SWANSON FACC, ALI FACP CCDS Ot I65.23 OCCLUSION AND STENOSIS OF BILATERAL FISCHER 05/26/2018 KATHLEEN SWANSON FAC, ALI FACP CCDS Ot J43.8 OTHER EMPHYSEMA 05/26/2018 KATHLEEN SWANSON [facility], ALI FACP CCDS Ot Z72.0 TOBACCO USE [...] Olson Ot I25.10 ATHSCL HEART DISEASE OF [place] CORONARY 07/11/2018 GELLENDER DO, LAZARO Olson Ot J44.9 CHRONIC OBSTRUCTIVE PULMONARY DISEASE, U 07/11/2018 GELLENDER DO, LAZARO Olson Ot R04.2 HEMOPTYSIS 07/16/2018 GELLENDER DO, LAZARO Olson Ot F17.200 NICOTINE DEPENDENCE, UNSPECIFIED, UNCOMP 07/16/2018 GELLENDER DO, LAZARO Olson Ot I25.10 ATHSCL HEART DISEASE OF [place] CORONARY 07/16/2018 GELLENDER DO, LAZARO Olson Ot J44.9 CHRONIC OBSTRUCTIVE PULMONARY DISEASE, U 07/16/2018 GELLENDER DO, LAZARO Olson Ot R04.2 HEMOPTYSIS 08/04/2018 GELLENDER DO, LAZARO Olson Ot F17.200 NICOTINE DEPENDENCE, UNSPECIFIED, UNCOMP 08/04/2018 GELLENDER DO, LAZARO Olson Ot I25.10 ATHSCL HEART DISEASE OF [place] CORONARY 08/04/2018 GELLENDER LAZARO SANCHEZ Ot J44.9 CHRONIC OBSTRUCTIVE PULMONARY DISEASE, U 08/04/2018 LAZARO CARREON DO Ot R04.2 HEMOPTYSIS 08/11/2018 KATHLEEN SWANSON FACC, ALI FACP CCDS Ot 272.4 HYPERLIPIDEMIA NEC/NOS 08/11/2018 KATHLEEN SWANSON FACC, ALI FACP CCDS [...] INDEX 40.0-44.9, ADULT 08/28/2018 BAIMA, JOS L MACHINE FOLDER Ot 401.9 HYPERTENSION NOS 08/28/2018 BAIMA, JOS L MACHINE FOLDER Ot 414.00 CORON ATHEROSCLER NOS TYPE VESSEL, NATIV 08/28/2018 BAIMA, JOS L MACHINE FOLDER Ot 429.9 HEART DISEASE NOS 08/28/2018 BAIMA, JOS L MACHINE FOLDER Ot V45.02 AUTO IMPLANTABLE CARDIAC DEFIBRILLATOR I 08/28/2018 BAIMA, JOS L MACHINE FOLDER Ot E78.4 OTHER HYPERLIPIDEMIA 08/28/2018 BAIMA, JOS L MACHINE FOLDER Ot G47.33 OBSTRUCTIVE SLEEP APNEA (ADULT) (PEDIATR 08/28/2018 BAIMA, JOS L MACHINE FOLDER Ot I25.10 ATHSCL HEART DISEASE OF [place] CORONARY 08/28/2018 BAIMA, JOS L MACHINE FOLDER Ot I25.5 ISCHEMIC CARDIOMYOPATHY 08/28/2018 BAIMA, JOS L MACHINE FOLDER Ot I65.23 OCCLUSION AND STENOSIS OF BILATERAL FISCHER 08/28/2018 BAIMA, JOS L MACHINE FOLDER Ot J43.8 OTHER EMPHYSEMA 08/28/2018 BAIMA, JOS L MACHINE FOLDER Ot R07.9 CHEST PAIN, UNSPECIFIED 08/28/2018 ARUN, JOS L MACHINE FOLDER Ot Z72.0 TOBACCO USE 08/28/2018 LAZARO CARREON [...] OBSTRUCTIVE SLEEP APNEA (ADULT) (PEDIATR 08/28/2018 KATHLEEN SWANSON FACC, ALI FACP CCDS Ot G89.4 CHRONIC PAIN SYNDROME 08/28/2018 KATHLEEN SWANSON FACC, ALI FACP CCDS Ot I25.10 ATHSCL HEART DISEASE OF [place] CORONARY 08/28/2018 KATHLEEN SWANSON FAC, ALI FACP CCDS Ot I25.5 ISCHEMIC CARDIOMYOPATHY 08/28/2018 KATHLEEN SWANSON FACC, ALI FACP CCDS Ot I65.23 OCCLUSION AND STENOSIS OF BILATERAL FISCHER 08/28/2018 KATHLEEN SWANSON FACC, ALI FACP CCDS Ot J43.8 OTHER EMPHYSEMA 08/28/2018 KATHLEEN PATTERSON, ALI FACP CCDS Ot Z72.0 TOBACCO USE 08/28/2018 LAZARO CARREON DO Ot M50.321 OTHER CERVICAL DISC DEGENERATION AT C4-C 08/28/2018 LAZARO CARREON DO Ot I51.7 CARDIOMEGALY 08/28/2018 LAZARO CARREON DO Ot R04.2 HEMOPTYSIS 08/28/2018 LAZARO CARREON DO Ot F17.200 NICOTINE DEPENDENCE, UNSPECIFIED, UNCOMP 08/28/2018 LAZARO CARREON DO Ot I25.10 ATHSCL HEART DISEASE OF [place] CORONARY 08/28/2018 LAZARO CARREON DO Ot J44.9 CHRONIC OBSTRUCTIVE PULMONARY DISEASE, U 08/28/2018 LAZARO CARREON DO Ot R04.2 HEMOPTYSIS 08/28/2018 DESHAWN DING DO Ot E78.00 PURE HYPERCHOLESTEROLEMIA, UNSPECIFIED 08/28/2018 DESHAWN DING DO Ot F17.210 NICOTINE DEPENDENCE, CIGARETTES, UNCOMPL 08/28/2018 DESHAWN DING DO Ot I11.0 HYPERTENSIVE HEART DISEASE WITH HEART FA 08/28/2018 DESHAWN DING DO Ot I25.10 ATHSCL HEART DISEASE OF [place] CORONARY 08/28/2018 TOÑA DO DESHAWN K Ot I25.2 OLD MYOCARDIAL INFARCTION 08/28/2018 TOÑA DESHAWN K Ot J44.9 CHRONIC OBSTRUCTIVE PULMONARY DISEASE, U 08/28/2018 TOÑA DESHAWN SANCHEZ K Ot R04.2 HEMOPTYSIS 08/28/2018 TOÑA DESHAWN K Ot R05 COUGH 08/28/2018 KENNARD DESHAWN K Ot Z79.02 MCC (CURRENT) USE OF ANTITHROMBOTI 08/28/2018 TOÑA DESHAWN K Ot Z79.51 ELEMENTARY EDUCATION TUTOR (CURRENT) USE OF INHALED STERO 08/28/2018 TOÑA DESHAWN K Ot Z79.82 MCC (CURRENT) USE OF ASPIRIN 08/28/2018 TOÑA DESHAWN K Ot Z86.73 PRSNL HX OF TIA (TIA), AND CEREB INFRC W 08/28/2018 TOÑA DESHAWN K Ot Z88.0 ALLERGY STATUS TO PENICILLIN 08/28/2018 TOÑA DESHAWN K Ot Z88.5 ALLERGY STATUS TO NARCOTIC AGENT STATUS 08/28/2018 [facility] DESHAWN K Ot Z90.89 ACQUIRED ABSENCE OF OTHER ORGANS 08/28/2018 TOÑ[place] DESHAWN K Ot Z95.0 PRESENCE OF CARDIAC PACEMAKER 08/28/2018 TOÑA DESHAWN K Ot Z95.1 PRESENCE OF AORTOCORONARY BYPASS GRAFT 09/01/2018 TOÑA DESHAWN K Ot E78.00 PURE HYPERCHOLESTEROLEMIA, UNSPECIFIED 09/01/2018 TOÑA DESHAWN K Ot F17.210 NICOTINE DEPENDENCE, CIGARETTES, UNCOMPL 09/01/2018 TOÑ[place] DESHAWN K Ot I11.0 HYPERTENSIVE HEART DISEASE WITH HEART FA 09/01/2018 TOÑA DESHAWN K Ot I25.10 ATHSCL HEART DISEASE OF [place] CORONARY 09/01/2018 TOÑ[place] DESHAWN K Ot I25.2 OLD MYOCARDIAL INFARCTION 09/01/2018 TOÑA DESHAWN K Ot J44.9 CHRONIC OBSTRUCTIVE PULMONARY DISEASE, U 09/01/2018 TOÑA DESHAWN K Ot R04.2 HEMOPTYSIS 09/01/2018 TOÑA DESHAWN K Ot R05 COUGH 09/01/2018 TOÑ[place] DESHAWN K Ot Z79.02 MCC (CURRENT) USE OF ANTITHROMBOTI 09/01/2018 TOÑA DO, DESHAWN K Ot Z79.51 ELEMENTARY EDUCATION TUTOR (CURRENT) USE OF INHALED STERO 09/01/2018 TOÑA DO DESHAWN K Ot Z79.82 ELEMENTARY EDUCATION TUTOR (CURRENT) USE OF ASPIRIN 09/01/2018 TOÑA DO [...] K Ot I25.10 ATHSCL HEART DISEASE OF [place] CORONARY 09/06/2018 TOÑA DESHAWN K Ot I25.2 OLD MYOCARDIAL INFARCTION 09/06/2018 TOÑA DO DESHAWN K Ot J44.9 CHRONIC OBSTRUCTIVE PULMONARY DISEASE, U 09/06/2018 TOÑA DO DESHAWN K Ot R04.2 HEMOPTYSIS 09/06/2018 TOÑA DO DESHAWN K Ot R05 COUGH 09/06/2018 TOÑA DO DESHAWN K Ot Z79.02 MCC (CURRENT) USE OF ANTITHROMBOTI 09/06/2018 TOÑA DO DESHAWN K Ot Z79.51 MCC (CURRENT) USE OF INHALED STERO 09/06/2018 TOÑA DO DESHAWN K Ot Z79.82 ELEMENTARY EDUCATION TUTOR (CURRENT) USE OF ASPIRIN 09/06/2018 TOÑA DO DESHAWN K Ot Z86.73 PRSNL HX OF TIA (TIA), AND CEREB INFRC W 09/06/2018 DESHAWN DING DO Ot Z88.0 ALLERGY STATUS TO PENICILLIN 09/06/2018 TOÑA SANCHEZ DESHAWN Miguel Ot Z88.5 ALLERGY STATUS TO NARCOTIC AGENT STATUS 09/06/2018 DESHAWN DING DO Miguel Ot Z90.89 ACQUIRED ABSENCE OF OTHER ORGANS 09/06/2018 DESHAWN DING DO Ot Z95.0 PRESENCE OF CARDIAC PACEMAKER 09/06/2018 TOÑA SANCHEZ DESHAWN Rivera Ot Z95.1 PRESENCE OF AORTOCORONARY BYPASS GRAFT 09/23/2018 TOÑA SANCHEZFREDERICKA Miguel Ot R04.2 HEM[facility]YSIS [facility]/22/[facility] PNEUMONIA, UNSPECIFIED ORGANISM 10/22/2018 [facility] R07.9 CHEST PAIN, UNSPECIFIED 10/22/2018 [facility] J18.9 PNEUMONIA, UNSPECIFIED ORGANISM 10/22/2018 [facility] R07.9 CHEST PAIN, UNSPECIFIED 10/23/2018 [facility] Ot E66.9 OBESITY, UNSPECIFIED 10/23/2018 [facility] E78.5 HYPERLIPIDEMIA, UNSPECIFIED 10/23/2018 [facility] Ot F17.210 NICOTINE DEPENDENCE, CIGARETTES, UNCOMPL 10/23/2018 [facility] Ot G47.30 SLEEP APNEA, UNSPECIFIED 10/23/2018 [facility] I25.10 ATHSCL HEART DISEASE OF [place] CORONARY 10/23/2018 [facility] I25.5 ISCHEMIC CARDIOMYOPATHY 10/23/2018 [facility] Ot I50.23 ACUTE ON CHRONIC SYSTOLIC (CONGESTIVE) H 10/23/2018 [facility] Ot I77.89 OTHER SPECIFIED DISORDERS OF ARTERIES AN 10/23/2018 [facility] Ot J44.1 CHRONIC OBSTRUCTIVE PULMONARY DISEASE W 10/23/2018 [facility] Ot R07.9 CHEST PAIN, UNSPECIFIED 10/23/2018 [facility] Ot Z79.82 ELEMENTARY EDUCATION TUTOR (CURRENT) USE OF ASPIRIN 10/23/2018 [facility] Ot Z79.899 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 EDUCATION TUTOR (CURRENT) DRUG THERAPY 10/23/2018 LAZARO CARREON DO Ot Z86.73 PRSNL HX OF TIA (TIA), AND CEREB INFRC W 10/23/2018 KADEEMLAZARO ZULETA DO Ot Z88.0 ALLERGY STATUS TO PENICILLIN 10/23/2018 [facility] LAZARO SANCHEZ Ot Z91.19 PATIENT'S NONCOMPLIANCE W OT MEDICAL TR 10/23/2018 LAZARO CARREON DO Ot Z95.5 PRESENCE OF CORONARY ANGIOPLASTY IMPLANT 10/23/2018 KADEEMLAZARO ZULETA DO Ot Z95.810 PRESENCE OF AUTOMATIC (IMPLANTABLE) CARD 11/03/2018 KADEEMLAZARO ZULETA DO Ot J18.9 PNEUMONIA, UNSPECIFIED ORGANISM 11/03/2018 LAZARO CARREON DO Ot R07.9 CHEST PAIN, UNSPECIFIED 11/05/2018 TRUE OLIVO APRN Ot G47.33 OBSTRUCTIVE SLEEP APNEA (ADULT) (PEDIATR 11/05/2018 TRUE OLIVO APRN Ot J43.8 OTHER EMPHYSEMA 11/05/2018 TRUE OLIVO APRN Ot J45.909 UNSPECIFIED ASTHMA, UNCOMPLICATED 11/05/2018 TRUE OLIVO APRN Ot R04.2 HEMOPTYSIS 11/05/2018 TRUE OLIVO APRN Ot R06.02 SHORTNESS OF BREATH 11/05/2018 TRUE OLIVO APRN Ot Z72.0 TOBACCO USE 11/05/2018 TRUE OLIVO APRN Ot Z91.14 PATIENT'S OTHER NONCOMPLIANCE WITH MEDIC 11/06/2018 OLGA REBOLLAR DO Ot Z01.818 ENCOUNTER FOR OTHER PREPROCEDURAL EXAMIN 11/15/2018 OLGA REBOLLAR DO Ot E78.5 HYPERLIPIDEMIA, UNSPECIFIED 11/15/2018 OLGA REBOLLAR DO Ot E87.1 HYPO-OSMOLALITY AND HYPONATREMIA 11/15/2018 OLGA REBOLLAR DO Ot F17.210 NICOTINE DEPENDENCE, CIGARETTES, UNCOMPL 11/15/2018 OLGA REBOLLAR DO Ot F41.9 ANXIETY DISORDER, UNSPECIFIED 11/15/2018 OLGA REBOLLAR DO Ot G47.33 OBSTRUCTIVE SLEEP APNEA (ADULT) (PEDIATR 11/15/2018 OLGA REBOLLAR DO Ot I11.0 HYPERTENSIVE HEART DISEASE WITH HEART FA 11/15/2018 OLGA REBOLLAR DO, Ot I25.10 ATHSCL HEART DISEASE OF [place] CORONARY 11/15/2018 OLGA REBOLLAR DO, Ot I25.2 OLD MYOCARDIAL INFARCTION 11/15/2018 OLGA REBOLLAR DO, Ot I25.5 ISCHEMIC CARDIOMYOPATHY 11/15/2018 OLGA REBOLLAR DO, Ot I50.23 ACUTE ON CHRONIC SYSTOLIC (CONGESTIVE) H 11/15/2018 OLGA REBOLLAR DO Ot I70.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 11/15/2018 OLGA REBOLLAR DO, Ot I70.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 11/15/2018 OLGA REBOLLAR DO, Ot I95.2 HYPOTENSION DUE TO DRUGS 11/15/2018 OLGA REBOLLAR DO, Ot J18.9 PNEUMONIA, UNSPECIFIED ORGANISM 11/15/2018 OLGA REBOLLAR DO, Ot J43.9 EMPHYSEMA, UNSPECIFIED 11/15/2018 OLGA REBOLLAR DO, Ot J45.909 UNSPECIFIED ASTHMA, UNCOMPLICATED 11/15/2018 OLGA REBOLLAR DO, Ot J96.20 ACUTE AND CHR RESP FAILURE, UNSP W HYPOX 11/15/2018 OLGA REBOLLAR DO Ot M16.11 UNILATERAL PRIMARY OSTEOARTHRITIS, RIGHT 11/15/2018 OLGA REBOLLAR DO, Ot R04.2 HEMOPTYSIS 11/15/2018 OLGA REBOLLAR DO, Ot T42.75XA ADVERSE EFFECT OF UNSP ANTIEPLPTC AND SE 11/15/2018 OLGA REBOLLAR DO, Ot Z86.73 PRSNL HX OF TIA (TIA), AND CEREB INFRC W 11/15/2018 OLGA REBOLLAR DO Ot Z91.14 PATIENT'S OTHER NONCOMPLIANCE WITH MEDIC 11/15/2018 OLGA REBOLLAR DO Ot Z95.1 PRESENCE OF AORTOCORONARY BYPASS GRAFT 11/15/2018 OLGA REBOLLAR DO Ot Z95.5 PRESENCE OF CORONARY ANGIOPLASTY IMPLANT 11/15/2018 OLGA REBOLLAR DO Ot Z95.810 PRESENCE OF AUTOMATIC (IMPLANTABLE) CARD 11/19/2018 LAZARO CARREON DO Ot J18.9 PNEUMONIA, UNSPECIFIED ORGANISM 11/19/2018 LAZARO CARREON DO Ot R07.9 CHEST PAIN, UNSPECIFIED 11/28/2018 YON OLIVOINE Andre [employer]AR [employer]OT MAN Ot G47.33 OBSTRUCTIVE SLEEP APNEA (ADULT) (PEDIATR 11/28/2018 YON OLIVOINE Andre [employer] Ot J44.9 CHRONIC OBSTRUCTIVE PULMONARY DISEASE, U 11/28/2018 YON OLIVOINE Andre [employer] Ot J84.10 PULMONARY FIBROSIS, UNSPECIFIED 11/28/2018 YON OLIVOINE E [employer] Ot R04.2 HEMOPTYSIS 11/28/2018 YON OLIVOINE E [employer] MAN Ot Z72.0 TOBACCO USE 11/28/2018 YON OLIVOINE E [employer] Ot Z91.14 PATIENT'S OTHER NONCOMPLIANCE WITH MEDIC 11/28/2018 PALLAVIYON MCOCYINE E [employer] MAN Ot Z95.818 PRESENCE OF OTHER CARDIAC IMPLANTS AND G 11/28/2018 YON OLIVOINE Andre [employer] Ot Z98.890 OTHER SPECIFIED POSTPROCEDURAL STATES 12/01/2018 TRUE OLIVO T[employer] MAN Ot G47.33 OBSTRUCTIVE SLEEP APNEA (ADULT) (PEDIATR 12/01/2018 TRUE OLIVO T[employer] MAN Ot J43.8 OTHER EMPHYSEMA 12/01/2018 YON OLIVOINE E [employer] MAN Ot J45.909 UNSPECIFIED ASTHMA, UNCOMPLICATED 12/01/2018 YON OLIVOINE E [employer] Ot R04.2 HEMOPTYSIS 12/01/2018 TRUE OLIVO [employer] MAN Ot R06.02 SHORTNESS OF BREATH 12/01/2018 TRUE OLIVO [employer] MAN Ot Z72.0 TOBACCO USE 12/01/2018 YON OLIVOINE E [employer] MAN Ot Z91.14 PATIENT'S OTHER NONCOMPLIANCE WITH MEDIC 12/23/2018 TRUE OLIVO [employer] MAN Ot G47.33 OBSTRUCTIVE SLEEP APNEA (ADULT) (PEDIATR 12/23/2018 YON OLIVOINE Andre [employer] Ot J44.9 CHRONIC OBSTRUCTIVE PULMONARY DISEASE, U 12/23/2018 YON OLIVOINE E [employer] MAN Ot J84.10 PULMONARY FIBROSIS, UNSPECIFIED 12/23/2018 YON OLIVOINE Andre [employer] Ot R04.2 HEMOPTYSIS 12/23/2018 TRUE OLIVO T[employer] MAN Ot Z72.0 TOBACCO USE 12/23/2018 YON OLIVOINE Andre [employer] Ot Z91.14 PATIENT'S OTHER NONCOMPLIANCE WITH MEDIC 12/23/2018 TRUE OLIVO APRN Ot Z95.818 PRESENCE OF OTHER CARDIAC IMPLANTS AND G 12/23/2018 TRUE OLIVO APRN Ot Z98.890 OTHER SPECIFIED POSTPROCEDURAL STATES 01/13/2019 VELMA SANCHEZ LAZARO Olson Ot M79.674 PAIN IN RIGHT TOE(S) 02/16/2019 VELMA SANCHEZLAZARO Wesley Ot M54.5 LOW BACK PAIN 02/16/2019 VELMA SANCHEZLAZARO Ot Z53.8 PROCEDURE AND TREATMENT NOT CARRIED OUT 02/25/2019 VELMA SANCHEZ, LAZARO Olson Ot M19.071 PRIMARY OSTEOARTHRITIS, RIGHT ANKLE AND 02/25/2019 GELJOSE ANGELDER DOLAZARO Wesley Ot M48.061 SPINAL STENOSIS, LUMBAR REGION WITHOUT N 02/25/2019 VELMA SANCHEZLAZARO Ot M51.37 OTHER INTERVERTEBRAL DISC DEGENERATION, 02/25/2019 VELMA SANCHEZ LAZARO Olson Ot M89.9 DISORDER OF BONE, UNSPECIFIED 03/18/2019 VELMA SANCHEZ LAZARO Olson Ot M19.071 PRIMARY OSTEOARTHRITIS, RIGHT ANKLE AND 03/18/2019 VELMA DOLAZARO Ot M48.061 SPINAL STENOSIS, LUMBAR REGION WITHOUT N 03/18/2019 VELMA SANCHEZLAZARO Ot M51.37 OTHER INTERVERTEBRAL DISC DEGENERATION, 03/18/2019 VELMA SANCHEZLAZARO Wesley Ot M89.9 DISORDER OF BONE, UNSPECIFIED Procedures Code Description Performed By Performed On G0008 FLU ADMINISTRATION (MEDICARE ONLY) 06/24/2012 Q2038 FLUZONE (MEDICARE OFFICE VISIT ONLY) 06/24/2012 39001 EKG, TRACING (IN-HOUSE) 06/27/2012 66624 OXIMETRY - OVERNIGHT 04/15/2013 80659 PULMONARY FUNCTION TEST (IN-HOUSE) 04/17/2013 79967 RESPIRATORY FLOW VOLUME LOOP 04/17/2013 51265 PULMONARY EDUCATION 04/17/2013 G0437 TOBACCO-USE GOLF INSTRUCTOR>10MIN 04/17/2013 21539 OXIMETRY - OVERNIGHT 04/29/2013 37651 SLEEP STUDY 04/29/2013 59914 OXIMETRY - OVERNIGHT 07/01/2013 83792 URINE DRUG SCREEN (IN-HOUSE) 11/10/2013 57152 GLUCOSE FINGER STICK 11/10/2013 52428 A1C (IN-HOUSE) 11/10/2013 69150 AMERITOX 03/22/2014 00.47 INSERTION OF THREE VASCULAR STENTS 11/25/2014 00.66 PERCUTANEOUS TRANSLUMINAL CORONARY ANGIO 11/25/2014 36.07 INSRT OF DRUG-ELUTING CORON ARTERY STENT 11/25/2014 37.22 LEFT HEART CARDIAC CATH 11/25/2014 88.49 CONTRAST ARTERIOGRAM NEC 11/25/2014 88.53 LT HEART ANGIOCARDIOGRAM 11/25/2014 88.56 CORONAR ARTERIOGR-2 CATH 11/25/2014 [id number] EXCISION OF THORAX LYMPHATIC, PERC ENDO 11/12/2018 [id number] DRAINAGE OF LEFT MAIN BRONCHUS, ENDO, DI 11/12/2018 [id number] DRAINAGE OF RIGHT LOWER LUNG LOBE, ENDO, 11/12/2018 [id number] EXTRACTION OF RIGHT LOWER LUNG LOBE, END 11/12/2018 [id number] RESPIRATORY VENTILATION, LESS THAN 24 CO 11/12/2018 Results Test Result Range Automated blood complete [...] Automated erythrocyte mean corpuscular hemoglobin concentration measurement (mass/volume) 35 g/dL 32-36 Automated erythrocyte distribution width ratio 12.6 % 10.0- 14.5 Automated blood platelet count (count/volume) 213 10*3/uL [...] Serum or plasma aspartate aminotransferase measurement (enzymatic activity/volume) 24 U/L 5-34 Serum or plasma alanine aminotransferase measurement (enzymatic activity/volume) 24 U/L 0-55 Serum or plasma protein measurement (mass/volume) 6.9 g/dL 6.4-8.2 Serum or plasma albumin measurement (mass/volume) 4.1 g/dL 3.2-4.5 Lipid 1996 panel - 05/01/16 07:42 Serum or plasma triglyceride measurement (mass/volume) 384 mg/dL <150 Serum or plasma cholesterol measurement (mass/volume) 200 mg/dL < 200 Serum or plasma cholesterol in HDL measurement (mass/volume) 25 mg/dL 40-60 Cholesterol in LDL [mass/volume] in serum or plasma by direct assay 116 mg/dL 1-129 Serum or plasma cholesterol in VLDL measurement (mass/volume) 77 mg/dL 5-40 Methicillin resistant Staphylococcus aureus (MRSA) screening culture - 05/01/16 07:42 Methicillin resistant Staphylococcus aureus (MRSA) screening [...] Automated erythrocyte mean corpuscular hemoglobin concentration measurement (mass/volume) 34 g/dL 32-36 Automated erythrocyte distribution width ratio 12.6 % 10.0- 14.5 Automated blood platelet count (count/volume) 205 10*3/uL [...] gravity of urine by test strip 1.005 1.016-1.022 Urine protein assay by test strip, semi-quantitative [...] sediment leukocyte count by microscopy (number/high power field) NONE NRG Bacteria detection in urine sediment [...] Automated erythrocyte mean corpuscular hemoglobin concentration measurement (mass/volume) 34 g/dL 32-36 Automated erythrocyte distribution width ratio 13.3 % 10.0- 14.5 Automated blood platelet count (count/volume) 192 10*3/uL [...] Serum or plasma aspartate aminotransferase measurement (enzymatic activity/volume) 20 U/L 5-34 Serum or plasma alanine aminotransferase measurement (enzymatic activity/volume) 23 U/L 0-55 Serum or plasma protein measurement (mass/volume) 7.1 g/dL 6.4-8.2 Serum or plasma albumin measurement (mass/volume) 4.1 g/dL 3.2-4.5 Lipid 1996 panel - 01/22/17 10:00 Serum or plasma triglyceride measurement (mass/volume) 242 mg/dL <150 Serum or plasma cholesterol measurement (mass/volume) 242 mg/dL < 200 Serum or plasma cholesterol in HDL measurement (mass/volume) 37 mg/dL 40-60 Cholesterol in LDL [mass/volume] in serum or plasma by direct assay 148 mg/dL 1-129 Serum or plasma cholesterol in VLDL measurement (mass/volume) 48 mg/dL 5-40 PT panel in platelet poor plasma [...] resistant Staphylococcus aureus (MRSA) screening culture - 01/22/17 10:00 Methicillin resistant Staphylococcus aureus (MRSA) screening culture NEG NR Automated blood complete blood count (hemogram) panel [...] Automated erythrocyte mean corpuscular hemoglobin concentration measurement (mass/volume) 33 g/dL 32-36 Automated erythrocyte distribution width ratio 13.2 % 10.0- 14.5 Automated blood platelet count (count/volume) 180 10*3/uL [...] Automated erythrocyte mean corpuscular hemoglobin concentration measurement (mass/volume) 35 g/dL 32-36 Automated erythrocyte distribution width ratio 13.5 % 10.0- 14.5 Automated blood platelet count (count/volume) 202 10*3/uL [...] Serum or plasma aspartate aminotransferase measurement (enzymatic activity/volume) 21 U/L 5-34 Serum or plasma alanine aminotransferase measurement (enzymatic activity/volume) 19 U/L 0-55 Serum or plasma protein measurement (mass/volume) 6.6 g/dL 6.4-8.2 Serum or plasma albumin measurement (mass/volume) 4.0 g/dL 3.2-4.5 Lipid 1996 panel - 12/10/17 08:45 Serum or plasma triglyceride measurement (mass/volume) 181 mg/dL <150 Serum or plasma cholesterol measurement (mass/volume) 250 mg/dL < 200 Serum or plasma cholesterol in HDL measurement (mass/volume) 39 mg/dL 40-60 Cholesterol in LDL [mass/volume] in serum or plasma by direct assay 161 mg/dL 1-129 Serum or plasma cholesterol in VLDL measurement (mass/volume) 36 mg/dL 5-40 Methicillin resistant Staphylococcus aureus (MRSA) screening culture - 12/10/17 08:45 Methicillin resistant Staphylococcus aureus (MRSA) screening culture NEG [facility] Automated blood complete blood count (hemogram) panel [...] Automated erythrocyte mean corpuscular hemoglobin concentration measurement (mass/volume) 34 g/dL 32-36 Automated erythrocyte distribution width ratio 13.7 % 10.0- 14.5 Automated blood platelet count (count/volume) 210 10*3/uL [...] Automated erythrocyte mean corpuscular hemoglobin concentration measurement (mass/volume) 34 g/dL 32-36 Automated erythrocyte distribution width ratio 13.2 % 10.0- 14.5 Automated blood platelet count (count/volume) 214 10*3/uL [...] Blood monocytes automated count (number/volume) 0.5 10*3 0.0- 1.0 Automated eosinophil count 0.3 10*3/uL 0.0-0.3 Automated [...] Serum or plasma aspartate aminotransferase measurement (enzymatic activity/volume) 30 U/L 5-34 Serum or plasma alanine aminotransferase measurement (enzymatic activity/volume) 30 U/L 0-55 Serum or plasma protein measurement (mass/volume) 7.5 g/dL 6.4-8.2 Serum or plasma albumin measurement (mass/volume) 4.4 g/dL 3.2-4.5 Serum or plasma amylase measurement (enzymatic activity/volume) - 03/19/18 13:50 Serum or plasma amylase measurement (enzymatic activity/volume) 43 U/L 25-125 Blood lactic acid measurement (moles/volume) - 03/19/18 14:00 Blood lactic acid measurement (moles/volume) 1.08 mmol/L 0.50- 2.00 Bacterial blood culture - 03/19/18 14:00 Bacterial blood culture NG [facility] Bacterial blood culture - 03/19/18 14:19 Bacterial blood culture NG [facility] PT panel in platelet poor plasma by [...] Automated erythrocyte mean corpuscular hemoglobin concentration measurement (mass/volume) 34 g/dL 32-36 Automated erythrocyte distribution width ratio 13.6 % 10.0- 14.5 Automated blood platelet count (count/volume) 238 10*3/uL [...] Blood monocytes automated count (number/volume) 0.5 10*3 0.0- 1.0 Automated eosinophil count 0.2 10*3/uL 0.0-0.3 Automated [...] Serum or plasma aspartate aminotransferase measurement (enzymatic activity/volume) 51 U/L 5-34 Serum or plasma alanine aminotransferase measurement (enzymatic activity/volume) 49 U/L 0-55 Serum or plasma protein [...] or plasma troponin i.cardiac measurement (mass/volume) < ng/mL <0.30 Complete blood count (CBC) with automated [...] Automated erythrocyte mean corpuscular hemoglobin concentration measurement (mass/volume) 34 g/dL 32-36 Automated erythrocyte distribution width ratio 13.3 % 10.0- 14.5 Automated blood platelet count (count/volume) 224 10*3/uL [...] Blood monocytes automated count (number/volume) 0.1 10*3 0.0- 1.0 Automated eosinophil count 0.0 10*3/uL 0.0-0.3 Automated [...] Automated erythrocyte mean corpuscular hemoglobin concentration measurement (mass/volume) 33 g/dL 32-36 Automated erythrocyte distribution width ratio 13.6 % 10.0- 14.5 Automated blood platelet count (count/volume) 218 10*3/uL [...] Blood monocytes automated count (number/volume) 0.3 10*3 0.0- 1.0 Automated eosinophil count 0.2 10*3/uL 0.0-0.3 Automated [...] Serum or plasma aspartate aminotransferase measurement (enzymatic activity/volume) 31 U/L 5-34 Serum or plasma alanine aminotransferase measurement (enzymatic activity/volume) 32 U/L 0-55 Serum or plasma protein measurement (mass/volume) 7.2 g/dL 6.4-8.2 Serum or plasma albumin measurement (mass/volume) 4.1 g/dL 3.2-4.5 CALCIUM CORRECTED 9.1 mg/dL 8.5-10.1 Magnesium - 10/21/18 12:46 Magnesium 2.4 mg/dL 1.8-2.4 Fibrin D-dimer FEU measurement in platelet poor plasma (mass/volume) - 10/21/18 12:46 Fibrin D-dimer FEU measurement in platelet [...] 10/21/18 12:46 BNP level 58.2 pg/mL <100.0 Complete blood count (CBC) with automated white blood cell (WBC) differential - 10/22/18 05:25 Blood leukocytes automated count (number/volume) 6.7 10*3/uL 4.3-11.0 Blood erythrocytes automated count (number/volume) 3.98 10*6/uL 4.35-5.85 Venous blood hemoglobin measurement (mass/volume) 12.2 g/dL 13.3-17.7 Blood hematocrit (volume fraction) 37 % 40-54 Automated erythrocyte mean corpuscular volume 94 [foz_us] 80-99 Automated erythrocyte mean corpuscular hemoglobin (mass per erythrocyte) 31 pg 25-34 Automated erythrocyte mean corpuscular hemoglobin concentration measurement (mass/volume) 33 g/dL 32-36 Automated erythrocyte distribution width ratio 13.9 % 10.0- 14.5 Automated blood platelet count (count/volume) 218 10*3/uL 130-400 Automated blood platelet mean volume measurement 10.4 [foz_us] 7.4-10.4 Automated blood neutrophils/100 leukocytes 57 % 42-75 Automated blood lymphocytes/100 leukocytes 30 % 12-44 Blood monocytes/100 leukocytes 9 % 0-12 Automated blood eosinophils/100 leukocytes 4 % 0-10 Automated blood basophils/100 leukocytes 0 % 0-10 Blood neutrophils automated count (number/volume) 3.8 10*3 1.8-7.8 Blood lymphocytes automated count (number/volume) 2.0 10*3 1.0-4.0 Blood monocytes automated count (number/volume) 0.6 10*3 0.0- 1.0 Automated eosinophil count 0.3 10*3/uL 0.0-0.3 Automated blood basophil count (count/volume) 0.0 10*3/uL 0.0-0.1 Comprehensive metabolic panel - 10/22/18 05:25 Serum or plasma sodium measurement (moles/volume) 136 mmol/L 135-145 Serum or plasma potassium measurement (moles/volume) 4.2 mmol/L 3.6-5.0 Serum or plasma chloride measurement (moles/volume) 104 mmol/L 98-107 Carbon dioxide 22 mmol/L 21-32 [...] 70-105 Serum or plasma calcium measurement (mass/volume) 8.5 mg/dL 8.5-10.1 Serum or plasma total bilirubin measurement (mass/volume) 0.3 mg/dL 0.1-1.0 Serum or plasma alkaline phosphatase measurement (enzymatic activity/volume) 62 U/L 40-136 Serum or plasma aspartate aminotransferase measurement (enzymatic activity/volume) 29 U/L 5-34 Serum or plasma alanine aminotransferase measurement (enzymatic activity/volume) 26 U/L 0-55 Serum or plasma protein measurement (mass/volume) 6.1 g/dL 6.4-8.2 Serum or plasma albumin measurement (mass/volume) 3.5 g/dL 3.2-4.5 CALCIUM CORRECTED 8.9 mg/dL 8.5-10.1 Serum or plasma troponin i.cardiac measurement (mass/volume) - 10/22/18 05:25 Serum or plasma troponin i.cardiac measurement (mass/volume) 0.091 ng/mL <0.028 Lipid 1996 panel - 10/22/18 05:25 Serum or plasma triglyceride measurement (mass/volume) 218 mg/dL <150 Serum or plasma cholesterol measurement (mass/volume) 245 mg/dL < 200 Serum or plasma cholesterol in HDL measurement (mass/volume) 31 mg/dL 40-60 Cholesterol in LDL [mass/volume] in serum or plasma by direct assay 180 mg/dL 1-129 Serum or plasma cholesterol in VLDL measurement (mass/volume) 44 mg/dL 5-40 Sputum Gram stain - 11/12/18 08:30 Sputum Gram stain No bacteria seen NRG Bacteria identification in bronchial specimen by aerobe culture - 11/12/18 08:30 QUANTITY OF GROWTH . NRG Bacteria identification in bronchial specimen by aerobe culture USUAL RESP NRG FTX;REPORTABLE >10,000 CFU/ML NRG C FUNGUS SPUTUM FLUID TISSUE - 11/12/18 08:30 FUNGUS REPORT NO FUNGUS GROWTH OBSERVED NRG Sputum Gram stain - 11/12/18 08:31 Sputum Gram stain TNP NRG Bacteria identification in bronchial specimen by aerobe culture - 11/12/18 08:31 Bacteria identification in bronchial specimen by aerobe culture NG NRG C FUNGUS SPUTUM FLUID TISSUE - 11/12/18 08:31 FUNGUS REPORT NO FUNGUS GROWTH OBSERVED NRG Automated blood complete blood count (hemogram) panel - 11/12/18 10:10 Blood leukocytes automated count (number/volume) 14.3 10*3/uL 4.3-11.0 Blood erythrocytes automated count (number/volume) 4.31 10*6/uL 4.35-5.85 Venous blood hemoglobin measurement (mass/volume) 13.3 g/dL 13.3-17.7 Blood hematocrit (volume fraction) 41 % 40-54 Automated erythrocyte mean corpuscular volume 96 [foz_us] 80-99 Automated erythrocyte mean corpuscular hemoglobin (mass per erythrocyte) 31 pg 25-34 Automated erythrocyte mean corpuscular hemoglobin concentration measurement (mass/volume) 32 g/dL 32-36 Automated erythrocyte distribution width ratio 13.7 % 10.0- 14.5 Automated blood platelet count (count/volume) 210 10*3/uL 130-400 Automated blood platelet mean volume measurement 10.4 [foz_us] 7.4-10.4 Comprehensive metabolic panel - 11/12/18 10:10 Serum or plasma sodium measurement (moles/volume) 134 mmol/L 135-145 Serum or plasma potassium measurement (moles/volume) 4.6 mmol/L 3.6-5.0 Serum or plasma chloride measurement (moles/volume) 104 mmol/L 98-107 Carbon dioxide 24 mmol/L 21-32 Serum or plasma anion gap determination (moles/volume) 6 mmol/L 5-14 Serum or plasma urea nitrogen measurement (mass/volume) 15 mg/dL 7-18 Serum or plasma creatinine measurement (mass/volume) 0.94 mg/dL 0.60-1.30 Serum or plasma urea nitrogen/creatinine mass ratio 16 NRG Serum or plasma creatinine measurement with calculation of estimated glomerular filtration rate > NRG Serum or plasma glucose measurement (mass/volume) 140 mg/dL 70-105 Serum or plasma calcium measurement (mass/volume) 8.4 mg/dL 8.5-10.1 Serum or plasma total bilirubin measurement (mass/volume) 0.4 mg/dL 0.1-1.0 Serum or plasma alkaline phosphatase measurement (enzymatic activity/volume) 54 U/L 40-136 Serum or plasma aspartate aminotransferase measurement (enzymatic activity/volume) 149 U/L 5-34 Serum or plasma alanine aminotransferase measurement (enzymatic activity/volume) 103 U/L 0-55 Serum or plasma protein measurement (mass/volume) 6.2 g/dL 6.4-8.2 Serum or plasma albumin measurement (mass/volume) 3.7 g/dL 3.2-4.5 CALCIUM CORRECTED 8.6 mg/dL 8.5-10.1 Serum or plasma phosphate measurement (mass/volume) - 11/12/18 10:10 Serum or plasma phosphate measurement (mass/volume) 5.8 mg/dL 2.3-4.7 Magnesium - 11/12/18 10:10 Magnesium 2.3 mg/dL 1.8-2.4 Serum or plasma triglyceride measurement (mass/volume) - 11/12/18 10:10 Serum or plasma triglyceride measurement (mass/volume) 261 mg/dL <150 Serum or plasma lithium measurement (moles/volume) - 11/12/18 10:10 BNP level 87.8 pg/mL <100.0 Serum or plasma lithium measurement (moles/volume) - 11/12/18 10:10 BNP level 77.8 pg/mL <100.0 Capillary blood glucose measurement by glucometer (mass/volume) - 11/13/18 00:24 Capillary blood glucose measurement by glucometer (mass/volume) 171 mg/dL 70-110 Arterial blood gas measurement - 11/13/18 03:40 Blood pCO2 38 mm[Hg] 35-45 Blood pO2 84 mm[Hg] 79-93 Arterial blood bicarbonate measurement (moles/volume) 23 mmol/L 23-27 Arterial blood base excess by calculation -1.2 mmol/L -2.5-2.5 Arterial blood oxygen saturation measurement 96 % 94-100 * Inhaled oxygen flow rate 25% NRG Arterial blood pH measurement with patient temperature correction 7.40 7.37-7.43 Arterial blood carbon dioxide, total measurement (moles/volume) 23.8 mmol/L 21.0-31.0 Body site RIGHT RADIAL NRG Assessment of wrist artery patency prior to arterial puncture POSITIVE NRG Setting of ventilation mode YES NRG Measurement of body temperature 100.6 NRG Complete blood count (CBC) with automated white blood cell (WBC) differential - 11/13/18 03:45 Blood leukocytes automated count (number/volume) 15.5 10*3/uL 4.3-11.0 Blood erythrocytes automated count (number/volume) 4.28 10*6/uL 4.35-5.85 Venous blood hemoglobin measurement (mass/volume) 13.4 g/dL 13.3-17.7 Blood hematocrit (volume fraction) 40 % 40-54 Automated erythrocyte mean corpuscular volume 93 [foz_us] 80-99 Automated erythrocyte mean corpuscular hemoglobin (mass per erythrocyte) 31 pg 25-34 Automated erythrocyte mean corpuscular hemoglobin concentration measurement (mass/volume) 34 g/dL 32-36 Automated erythrocyte distribution width ratio 13.8 % 10.0- 14.5 Automated blood platelet count (count/volume) 176 10*3/uL 130-400 Automated blood platelet mean volume measurement 10.8 [foz_us] 7.4-10.4 Automated blood neutrophils/100 leukocytes 84 % 42-75 Automated blood lymphocytes/100 leukocytes 9 % 12-44 Blood monocytes/100 leukocytes 7 % 0-12 Automated blood eosinophils/100 leukocytes 0 % 0-10 Automated blood basophils/100 leukocytes 0 % 0-10 Blood neutrophils automated count (number/volume) 13.1 10*3 1.8-7.8 Blood lymphocytes automated count (number/volume) 1.4 10*3 1.0-4.0 Blood monocytes automated count (number/volume) 1.0 10*3 0.0- 1.0 Automated eosinophil count 0.0 10*3/uL 0.0-0.3 Automated blood basophil count (count/volume) 0.0 10*3/uL 0.0-0.1 Comprehensive metabolic panel - 11/13/18 03:45 Serum or plasma sodium measurement (moles/volume) 137 mmol/L 135-145 Serum or plasma potassium measurement (moles/volume) 4.8 mmol/L 3.6-5.0 Serum or plasma chloride measurement (moles/volume) 106 mmol/L 98-107 Carbon dioxide 18 mmol/L 21-32 Serum or plasma anion gap determination (moles/volume) 13 mmol/L 5-14 Serum or plasma urea nitrogen measurement (mass/volume) 21 mg/dL 7-18 Serum or plasma creatinine measurement (mass/volume) 1.14 mg/dL 0.60-1.30 Serum or plasma urea nitrogen/creatinine mass ratio 18 NRG Serum or plasma creatinine measurement with calculation of estimated glomerular filtration rate > NRG Serum or plasma glucose measurement (mass/volume) 173 mg/dL 70-105 Serum or plasma calcium measurement (mass/volume) 7.7 mg/dL 8.5-10.1 Serum or plasma total bilirubin measurement (mass/volume) 0.4 mg/dL 0.1-1.0 Serum or plasma alkaline phosphatase measurement (enzymatic activity/volume) 51 U/L 40-136 Serum or plasma aspartate aminotransferase measurement (enzymatic activity/volume) 111 U/L 5-34 Serum or plasma alanine aminotransferase measurement (enzymatic activity/volume) 88 U/L 0-55 Serum or plasma protein measurement (mass/volume) 6.2 g/dL 6.4-8.2 Serum or plasma albumin measurement (mass/volume) 3.7 g/dL 3.2-4.5 CALCIUM CORRECTED 7.9 mg/dL 8.5-10.1 Serum or plasma phosphate measurement (mass/volume) - 11/13/18 03:45 Serum or plasma phosphate measurement (mass/volume) 3.5 mg/dL 2.3-4.7 Magnesium - 11/13/18 03:45 Magnesium 2.1 mg/dL 1.8-2.4 Blood manual differential performed detection - 11/13/18 03:45 Blood monocytes/100 leukocytes 8 % NRG Manual blood segmented neutrophils/100 leukocytes 81 % NRG Manual blood lymphocytes/100 leukocytes 11 % NRG Serum or plasma lithium measurement (moles/volume) - 11/13/18 03:45 BNP level 107.1 pg/mL <100.0 Complete blood count (CBC) with automated white blood cell (WBC) differential - 11/14/18 04:20 Blood leukocytes automated count (number/volume) 13.8 10*3/uL 4.3-11.0 Blood erythrocytes automated count (number/volume) 3.96 10*6/uL 4.35-5.85 Venous blood hemoglobin measurement (mass/volume) 12.3 g/dL 13.3-17.7 Blood hematocrit (volume fraction) 37 % 40-54 Automated erythrocyte mean corpuscular volume 94 [foz_us] 80-99 Automated erythrocyte mean corpuscular hemoglobin (mass per erythrocyte) 31 pg 25-34 Automated erythrocyte mean corpuscular hemoglobin concentration measurement (mass/volume) 33 g/dL 32-36 Automated erythrocyte distribution width ratio 13.6 % 10.0- 14.5 Automated blood platelet count (count/volume) 117 10*3/uL 130-400 Automated blood platelet mean volume measurement 10.8 [foz_us] 7.4-10.4 Automated blood neutrophils/100 leukocytes 74 % 42-75 Automated blood lymphocytes/100 leukocytes 15 % 12-44 Blood monocytes/100 leukocytes 8 % 0-12 Automated blood eosinophils/100 leukocytes 3 % 0-10 Automated blood basophils/100 leukocytes 0 % 0-10 Blood neutrophils automated count (number/volume) 10.3 10*3 1.8-7.8 Blood lymphocytes automated count (number/volume) 2.1 10*3 1.0-4.0 Blood monocytes automated count (number/volume) 1.1 10*3 0.0- 1.0 Automated eosinophil count 0.4 10*3/uL 0.0-0.3 Automated blood basophil count (count/volume) 0.0 10*3/uL 0.0-0.1 Whole blood basic metabolic panel - 11/14/18 04:20 Serum or plasma sodium measurement (moles/volume) 135 mmol/L 135-145 Serum or plasma potassium measurement (moles/volume) 3.9 mmol/L 3.6-5.0 Serum or plasma chloride measurement (moles/volume) 104 mmol/L 98-107 Carbon dioxide 20 mmol/L 21-32 Serum or plasma anion gap determination (moles/volume) 11 mmol/L 5-14 Serum or plasma urea nitrogen measurement (mass/volume) 25 mg/dL 7-18 Serum or plasma creatinine measurement (mass/volume) 0.86 mg/dL 0.60-1.30 Serum or plasma urea nitrogen/creatinine mass ratio 29 NRG Serum or plasma creatinine measurement with calculation of estimated glomerular filtration rate > NRG Serum or plasma glucose measurement (mass/volume) 97 mg/dL 70-105 Serum or plasma calcium measurement (mass/volume) 8.1 mg/dL 8.5-10.1 Serum or plasma phosphate measurement (mass/volume) - 11/14/18 04:20 Serum or plasma phosphate measurement (mass/volume) 3.7 mg/dL 2.3-4.7 Magnesium - 11/14/18 04:20 Magnesium 2.6 mg/dL 1.8-2.4 Complete blood count (CBC) with automated white blood cell (WBC) differential - 11/15/18 05:50 Blood leukocytes automated count (number/volume) 8.8 10*3/uL 4.3-11.0 Blood erythrocytes automated count (number/volume) 3.65 10*6/uL 4.35-5.85 Venous blood hemoglobin measurement (mass/volume) 11.3 g/dL 13.3-17.7 Blood hematocrit (volume fraction) 35 % 40-54 Automated erythrocyte mean corpuscular volume 95 [foz_us] 80-99 Automated erythrocyte mean corpuscular hemoglobin (mass per erythrocyte) 31 pg 25-34 Automated erythrocyte mean corpuscular hemoglobin concentration measurement (mass/volume) 33 g/dL 32-36 Automated erythrocyte distribution width ratio 13.6 % 10.0- 14.5 Automated blood platelet count (count/volume) 165 10*3/uL 130-400 Automated blood platelet mean volume measurement 10.6 [foz_us] 7.4-10.4 Automated blood neutrophils/100 leukocytes 75 % 42-75 Automated blood lymphocytes/100 leukocytes 15 % 12-44 Blood monocytes/100 leukocytes 9 % 0-12 Automated blood eosinophils/100 leukocytes 1 % 0-10 Automated blood basophils/100 leukocytes 0 % 0-10 Blood neutrophils automated count (number/volume) 6.5 10*3 1.8-7.8 Blood lymphocytes automated count (number/volume) 1.3 10*3 1.0-4.0 Blood monocytes automated count (number/volume) 0.8 10*3 0.0- 1.0 Automated eosinophil count 0.1 10*3/uL 0.0-0.3 Automated blood basophil count (count/volume) 0.0 10*3/uL 0.0-0.1 Whole blood basic metabolic panel - 11/15/18 05:50 Serum or plasma sodium measurement (moles/volume) 134 mmol/L 135-145 Serum or plasma potassium measurement (moles/volume) 3.6 mmol/L 3.6-5.0 Serum or plasma chloride measurement (moles/volume) 99 mmol/L 98-107 Carbon dioxide 24 mmol/L 21-32 Serum or plasma anion gap determination (moles/volume) 11 mmol/L 5-14 Serum or plasma urea nitrogen measurement (mass/volume) 22 mg/dL 7-18 Serum or plasma creatinine measurement (mass/volume) 0.85 mg/dL 0.60-1.30 Serum or plasma urea nitrogen/creatinine mass ratio 26 NRG Serum or plasma creatinine measurement with calculation of estimated glomerular filtration rate > NRG Serum or plasma glucose measurement (mass/volume) 99 mg/dL 70-105 Serum or plasma calcium measurement (mass/volume) 8.4 mg/dL 8.5-10.1 Serum or plasma phosphate measurement (mass/volume) - 11/15/18 05:50 Serum or plasma phosphate measurement (mass/volume) 3.4 mg/dL 2.3-4.7 Magnesium - 11/15/18 05:50 Magnesium 2.8 mg/dL 1.8-2.4 [id number] - 11/26/18 11:17 Serum or plasma urea nitrogen measurement (mass/volume) 11 mg/dL 7-18 Serum or plasma creatinine measurement (mass/volume) 0.84 mg/dL 0.60-1.30 Serum or plasma urea nitrogen/creatinine mass ratio 13 NRG Serum or plasma creatinine measurement with calculation of estimated glomerular filtration rate > NRG Encounters ACCT No. Visit Date/Time Discharge Status Pt. Type Provider Facility Loc./Unit Complaint [id number] 03/18/2014 10:46:00 03/18/2014 23:59:59 CLS Outpatient KEE MAYERS APRN [id number] 11/10/2013 13:57:00 11/10/2013 23:59:59 CLS Outpatient KEE MAYERS APRN [id number] 11/10/2013 13:57:00 11/10/2013 23:59:59 CLS Outpatient KEE MAYERS APRN [id number] 07/20/2013 10:46:00 07/20/2013 23:59:59 CLS Outpatient ANDIE HERNÁNDEZ DO [id number] 04/27/2013 08:29:00 04/27/2013 23:59:59 CLS Outpatient ZAFAR AVALOS MD [id number] 10/22/2012 12:29:00 10/22/2012 23:59:59 CLS Outpatient KEE MAYERS APRN [id number] 06/24/2012 12:56:00 06/24/2012 23:59:59 CLS Outpatient KEE MAYERS APRN [id number] 06/24/2012 12:56:00 06/24/2012 23:59:59 CLS Outpatient KEE MAYERS APRN [id number] 04/17/2013 14:07:00 Document Registration [id number] 02/23/2019 14:47:00 02/23/2019 23:59:59 CLS Outpatient LAZARO CARREON DO [facility] RAD BACK PAIN GOES DOWN RT LEG/FOOT [id number] 02/11/2019 10:00:00 02/11/2019 23:59:59 CLS Outpatient KADEEMLAZARO ZULETA DO [facility] RAD LOW BACK PAIN [id number] 12/22/2018 10:21:00 12/22/2018 23:59:59 CLS Outpatient LAZARO CARREON DO [facility] RAD PAIN ACROSS BIG TOE [id number] 11/13/2018 08:24:00 11/15/2018 14:00:00 DIS Inpatient OLGA REBOLLAR DO [facility] 4TH HEMOPTYSIS/ASTHMA/COPD/SOB/OBSTRUCTIVE SLEEP APNEA [id number] 11/05/2018 06:47:00 11/05/2018 13:00:00 DIS Outpatient OLGA REBOLLAR DO [facility] PREOP EBUS [id number] 11/04/2018 08:26:00 11/04/2018 23:59:59 CLS Outpatient TRUE OLIVO APRN [facility] LAB R04.2,J45.909 [id number] 11/04/2018 07:34:00 11/04/2018 23:59:59 CLS Outpatient TRUE OLIVO APRN [facility] RAD HEMOPTYSIS,ASTHMA [id number] 11/04/2018 07:17:00 11/04/2018 23:59:59 CLS Preadmit TRUE OLIVO APRN [facility] RT ASTHMA,COPD [id number] 10/21/2018 14:41:00 10/23/2018 10:30:00 DIS Inpatient LAZARO CARREON DO [facility] 4TH CHEST PAIN [id number] 10/21/2018 09:47:00 10/21/2018 23:59:59 CLS Outpatient LAZARO CARREON DO [facility] LAB CHEST PAIN [id number] 08/29/2018 08:25:00 08/29/2018 23:59:59 CLS Outpatient DESHAWN DING DO [facility] LAB HEMOPTYSIS [id number] 08/28/2018 19:37:00 08/28/2018 23:01:00 DIS Emergency TOÑA DESHAWN SANCHEZ Miguel [facility] ER COUGHING UP BLOOD, SOB [id number] 07/10/2018 07:45:00 07/10/2018 23:59:59 CLS Outpatient LAZARO CARREON DO [facility] RAD HAEMOPTYSIS, SMOKING, COPD [id number] 05/26/2018 09:33:00 05/26/2018 23:59:59 CLS Outpatient LAZARO CARREON DO [facility] RAD HEMOPLYSIS [id number] 03/19/2018 12:19:00 03/19/2018 16:37:00 DIS Emergency TOÑA DO DESHAWN Miguel [facility] ER ABCESS TOOTH [id number] 12/10/2017 08:14:00 12/11/2017 09:04:00 DIS Outpatient KATHLEEN SWANSON FACC, ALFREDO PATTERSONP CCDS [facility] CATH LEFT HEART CATH [id number] 01/22/2017 09:10:00 01/23/2017 11:00:00 DIS Outpatient KATHLEEN SWANSON FACC, ALFREDO FACP CCDS [facility] CATH CHEST PAIN,CAD,ISCHEMIC CM,CARMEN [id number] 12/25/2016 08:09:00 12/25/2016 23:59:59 CLS Outpatient LAZARO CARREON DO [facility] RAD NECK PAIN RT SIDE [id number] 12/25/2016 08:04:00 12/25/2016 23:59:59 CLS Outpatient KATHLEEN SWANSON FACC, ALFREDO FACP CCDS [facility] CARD CAD,HLP [id number] 07/14/2016 14:02:00 07/14/2016 16:16:00 DIS Emergency ALLYN BIRD [facility] ER R LEG NUMBNESS [id number] 06/13/2016 12:05:00 06/13/2016 23:59:59 CLS Outpatient LAZARO CARREON DO [facility] RAD SCIATICA GETTING WORSE LT LEG [id number] 05/03/2016 10:04:00 05/03/2016 23:59:59 CLS Outpatient LAZARO CARREON DO [facility] RAD SCIATICA,NUMBNESS LEFT THIGH TINGLING [id number] 05/01/2016 07:12:00 05/02/2016 09:35:00 DIS Outpatient ALFREDO WANG MD, FACC, FACP CCDS [facility] CATH CHEST PAIN, CAD [id number] 03/22/2016 07:55:00 03/22/2016 23:59:59 CLS Outpatient JOS DIAS [facility] CARD CHEST PAIN, CAD [place], COPD, CARDIOMYOPATHY [id number] 07/26/2015 12:22:00 07/26/2015 19:08:00 DIS Outpatient ALFREDO WANG MD, FACC, FACP CCDS [facility] ICD RODRIGUEZ, MYOPATHY [id number] 06/14/2015 00:32:00 06/14/2015 01:44:00 DIS Emergency COLETTE ALLRED MD [facility] ER DENTAL PAIN [id number] 11/23/2014 19:00:00 11/26/2014 11:30:00 DIS Outpatient LAZARO CARREON DO [facility] CHEST PAIN; HTN; COPD [id number] 06/18/2014 09:27:00 06/18/2014 23:59:59 CLS Outpatient JOS DIAS [facility] CARD CAD,HLP,HX PACEMAKER [id number] 01/13/2014 10:08:00 01/13/2014 12:37:00 DIS Emergency TIMO SEYMOUR MD [facility] ER FALL/LEFT ANKLE INJURY [id number] 12/31/2013 07:40:00 12/31/2013 23:59:59 CLS Outpatient ALFREDO WANG MD, FACC, FACP CCDS [facility] CARD HLP,CAD, [id number] 11/13/2013 07:37:00 11/13/2013 23:59:59 CLS Outpatient [id number] 06/26/2013 07:46:00 06/26/2013 23:59:59 CLS Outpatient [id number] 06/09/2013 20:44:00 06/10/2013 06:15:00 DIS Outpatient [id number] 2013 08:40:00 2013 10:07:00 DIS Emergency [id number] 04/22/2013 07:47:00 04/22/2013 23:59:59 CLS Outpatient
[2019-03-24] MEDS ORDERED: ONDA4TAB11 PO (18:10)
[2019-03-24 18:16] VITALS: BP 116/62
== END 2019-03-24 18:19 | disposition home or self-care (01) ==
LOC: EDUNIT# 15:06 → ER 15:07
DX: S06.0X0A Concussion without loss of consciousness, initial encounter (principal); S00.12XA Contusion of left eyelid and periocular area, initial encounter; S00.81XA Abrasion of other part of head, initial encounter; J44.9 Chronic obstructive pulmonary disease, unspecified; I10 Essential (primary) hypertension; E78.00 Pure hypercholesterolemia, unspecified; I25.2 Old myocardial infarction; I25.10 Atherosclerotic heart disease of native coronary artery without angina pectoris; I42.9 Cardiomyopathy, unspecified; F41.9 Anxiety disorder, unspecified; F17.210 Nicotine dependence, cigarettes, uncomplicated; R40.2132 Coma scale, eyes open, to sound, at arrival to emergency department; R40.2252 Coma scale, best verbal response, oriented, at arrival to emergency department; R40.2362 Coma scale, best motor response, obeys commands, at arrival to emergency department; Z86.73 Personal history of transient ischemic attack (TIA), and cerebral infarction without residual deficits; Z95.810 Presence of automatic (implantable) cardiac defibrillator; Z90.89 Acquired absence of other organs; Z95.1 Presence of aortocoronary bypass graft; Z79.82 Long term (current) use of aspirin; Z95.5 Presence of coronary angioplasty implant and graft; Z88.0 Allergy status to penicillin; Z88.6 Allergy status to analgesic agent; Z79.02 Long term (current) use of antithrombotics/antiplatelets; Z79.51 Long term (current) use of inhaled steroids; Z82.49 Family history of ischemic heart disease and other diseases of the circulatory system; Z80.0 Family history of malignant neoplasm of digestive organs; Z80.3 Family history of malignant neoplasm of breast; W01.198A Fall on same level from slipping, tripping and stumbling with subsequent striking against other object, initial encounter; Y93.01 Activity, walking, marching and hiking; Y92.096 Garden or yard of other non-institutional residence as the place of occurrence of the external cause
CPT/HCPCS: 36415; 70450; 71045; 72125; 80048; 80076; 80320; 85027; 93005; 93041; 94640

== ENCOUNTER → 2019-05-19 | Outpatient (CLI) | payer MEDICARE ==
[~2019-05-19] MED LIST changes: +ONDA4TAB11 PO
== END ==
LOC: RAD 11:29
PROVIDERS: ATTEND Internal Medicine Cardiovascular Disease
DX: I25.5 Ischemic cardiomyopathy (principal); I65.29 Occlusion and stenosis of unspecified carotid artery; J44.9 Chronic obstructive pulmonary disease, unspecified; G47.33 Obstructive sleep apnea (adult) (pediatric); M79.671 Pain in right foot; Z95.828 Presence of other vascular implants and grafts; Z72.0 Tobacco use
CPT/HCPCS: 93923

== ENCOUNTER 2019-07-07 04:58 | Observation (INO) | payer MEDICARE ==
[~2019-07-07] VITALS: Ht 175.3 cm; Wt 113.1 kg
[2019-07-07] MEDS ORDERED: fentaNYL INJECTION 100 MCG/2 ML AMP IVP ONE ×2 (05:15→06:00)
[2019-07-07] MEDS ORDERED: ONDANSETRON 4 MG/2 ML (SDV) Z0FRAN IVP ONE (05:15)
[2019-07-07] MEDS ORDERED: TRAZ-222 PO (05:16)
--- NOTE | 2019-07-07 05:20 | NUR ---
pt denies being able to void at this time.
[2019-07-07 05:23] LABS: BASOPHILS % (AUTO) 0 % (0-10); EOSINOPHILS # (AUTO) 0.1 10^3/uL (0.0-0.3); EOSINOPHILS % (AUTO) 2 % (0-10); HEMATOCRIT 42 % (40-54); HEMOGLOBIN 14.6 G/DL (13.3-17.7); LYMPHOCYTES # (AUTO) 1.4 X 10^3 (1.0-4.0); LYMPHOCYTES % (AUTO) 15 % (12-44); MEAN CORPUSCULAR HEMOGLOBIN 33 PG (25-34); MEAN CORPUSCULAR HGB CONC 35 G/DL (32-36); MEAN CORPUSCULAR VOLUME 93 FL (80-99); MEAN PLATELET VOLUME 10.5 FL (7.4-10.4); MONOCYTES # (AUTO) 0.9 X 10^3 (0.0-1.0); MONOCYTES % (AUTO) 10 % (0-12); NEUTROPHILS # (AUTO) 7.1 X 10^3 (1.8-7.8); NEUTROPHILS % (AUTO) 74 % (42-75); PLATELET COUNT 185 10^3/uL (130-400); RED CELL DISTRIBUTION WIDTH 14.1 % (10.0-14.5); WHITE BLOOD COUNT 9.6 10^3/uL (4.3-11.0)
[2019-07-07 05:35] LABS: ALANINE AMINOTRANSFERASE 43 U/L (0-55); ALBUMIN 3.5 GM/DL (3.2-4.5); ALKALINE PHOSPHATASE 75 U/L (40-136); BILIRUBIN,TOTAL 0.9 MG/DL (0.1-1.0); BUN/CREATININE RATIO 13; CARBON DIOXIDE 25 MMOL/L (21-32); CHLORIDE 96 MMOL/L (98-107); CREATININE SERUM 0.78 MG/DL (0.60-1.30); GFR ESTIMATED > 60; GLUCOSE 112 MG/DL (70-105); LIPASE 485 U/L (8-78); POTASSIUM 3.1 MMOL/L (3.6-5.0); SODIUM 136 MMOL/L (135-145); TOTAL PROTEIN 6.7 GM/DL (6.4-8.2)
--- NOTE | 2019-07-07 05:38 | ED Abdominal Pain ---
General Chief Complaint: Abdominal/GI Problems Stated Complaint: ABD PAIN Nursing Triage Note: sharp upper abdominal pain, n/v/d x4 days. Sepsis Screen: No Definite Risk Source of Information: Patient Exam Limitations: No Limitations History of Present Illness Date Seen by Provider: Jul 07, 2019 Time Seen by Provider: 05:08 Initial Comments This 59-year-old gentleman presents to the emergency room with complaints of consistent upper abdominal pain for the past 4 days. He has had vomiting and some small liquidy stools. He reports subjective fever but he is afebrile at the moment. He denies any exacerbating or alleviating factors. Allergies and Home Medications Allergies Coded Allergies: Penicillins (Verified Allergy, Mild, ITCHING, 11/05/18) ketorolac (Unverified Allergy, Mild, ITCHING, 11/05/18) Home Medications Albuterol Sulfate 18 Gm Hfa.aer.ad, 2 PUFF INH Q4H PRN for SHORTNESS OF BREATH, (Reported) Aspirin 81 Mg Tab.chew, 81 MG PO DAILY, (Reported) Atorvastatin Calcium 40 Mg Tablet, 40 MG PO DAILY Prescribed by: ALFREDO WANG on 10/23/18925 Baclofen 10 Mg Tablet, 10 MG PO TID PRN for MUSCLE SPASMS, (Reported) Clopidogrel Bisulfate 75 Mg Tablet, 75 MG PO DAILY, (Reported) Fluticasone Propionate 16 Gm [place].susp, 2 SPRAYS NS DAILY, (Reported) Fluticasone/Salmeterol 1 Each Blst.w.dev, 1 PUFF IH BID, (Reported) Furosemide 40 Mg Tablet, 40 MG PO DAILY Prescribed by: ALFREDO WANG on 10/23/18925 Gabapentin 600 Mg Tablet, 600 MG PO TID, (Reported) Hydrocodone Bit/Acetaminophen 1 Ea Tablet, 1-2 EA PO Q6H PRN for PAIN-MODERATE Prescribed by: BC CLAROS on 11/15/18 124 Ipratropium/Albuterol Sulfate 3 Ml Ampul.neb, 3 ML INH RTQ4HR Prescribed by: BC CLAROS on 11/15/18 124 Metoprolol Succinate 50 Mg Tab.er.24h, 50 MG PO DAILY Prescribed by: ALFREDO WANG on 10/23/18 09 Ondansetron 4 Mg Tab.rapdis, 4 MG PO Q6H PRN for NAUSEA/VOMITING Prescribed by: JOSE MENESES on 03/24/19 181 Tiotropium [place] 4 Gm Mist.inhal, 2 PUFF IH DAILY, (Reported) Tramadol HCl 50 Mg Tablet, 50 MG PO TID PRN for PAIN-MILD, (Reported) Valsartan 80 Mg Tablet, 80 MG PO DAILY Prescribed by: ALFREDO WANG on 10/23/18 8168 Patient Home Medication List Home Medication List Reviewed: Yes Review of Systems Review of Systems Constitutional: see HPI EENTM: No Symptoms Reported Respiratory: No Symptoms Reported Cardiovascular: No Symptoms Reported Gastrointestinal: See HPI Genitourinary: No Symptoms Reported Musculoskeletal: no symptoms reported Skin: no symptoms reported Psychiatric/Neurological: No Symptoms Reported Endocrine: No Symptoms Reported Hematologic/Lymphatic: No Symptoms Reported Past Cqfughg-Vfzild-Msjsjd Hx Past Med/Social Hx: Reviewed Nursing Past Med/Soc Hx Patient Social History Alcohol Use: Occasionally Uses Number of Drinks Today: AA Alcohol Beverage of Choice: Beer Recreational Drug Use: No Drug of Choice: "ALL KINDS" WHEN IN 20'S Smoking Status: Current Everyday Smoker Type Used: Cigars, Cigarettes 2nd Hand Smoke Exposure: Yes Recent Foreign Travel: No Contact w/Someone Who Travel: No Recent Infectious Disease Expo: No Recent Hopitalizations: No Physical Abuse: No Sexual Abuse: No Mistreated: No Fear: No Immunizations Up To Date Tetanus Booster (TDap): Less than 5yrs Date of Pneumonia Vaccine: May 10, 2017 Date of Influenza Vaccine: Jul 10, 2018 Seasonal Allergies Seasonal Allergies: No Past Medical History Surgeries: Yes Adenoidectomy, Cardiac, CABG, Coronary Stent, Defibrillator, Open Heart Surgery, Orthopedic, Pacemaker, Tonsillectomy Respiratory: Yes Asthma, Sleep Apnea, COPD Currently Using CPAP: Yes Currently Using BIPAP: No Cardiac: Yes Cardiomyopathy, Coronary Artery Disease, Heart Attack, High Cholesterol, Hypertension Neurological: Yes Stroke Reproductive Disorders: No Sexually Transmitted Disease: No HIV/AIDS: No Genitourinary: No Gastrointestinal: No Musculoskeletal: Yes Degenerate Disk Disease, Arthritis, Chronic Back Pain Endocrine: No HEENT: Yes Loss of Vision: Bilateral Hearing Impairment: Denies Cancer: No Psychosocial: Yes Anxiety Integumentary: No Blood Disorders: No Adverse Reaction/Blood Tranf: No (N/A) Family Medical History Cardiovascular disease 19 MOTHER PATERNAL GRANDMOTHER Completed stroke PATERNAL GRANDFATHER Diabetes mellitus 19 MOTHER Hypertension 19 MOTHER PATERNAL GRANDMOTHER Neoplasm 19 FATHER (LUNG CANCER - AGE 42) MATERNAL GRANDMOTHER (BREAST CANCER) No Pertinent Family Hx Physical Exam Vital Signs Vital Signs - First Documented 07/07/19 05:03 Temp 36.8 Pulse 98 Resp 18 B/P (MAP) 141/58 (85) Pulse Ox 97 O2 Delivery Room Air Capillary Refill : Less Than 3 Seconds Height/Weight/BMI Height: 5'8.00" Weight: 258lbs. 0.00oz. 117.311817rd; 38.00 BMI Method:Stated General Appearance: WD/WN, no apparent distress HEENT: PERRL/EOMI, normal ENT inspection, pharynx normal Neck: normal inspection Respiratory: lungs clear, normal breath sounds, no respiratory distress, no accessory muscle use Cardiovascular: regular rate, rhythm, no edema, no murmur Gastrointestinal: normal bowel sounds, soft, distended (mildly); No guarding; tenderness (across the upper abdomen) Extremities: normal inspection, no pedal edema Neurologic/Psychiatric: medical interpreter II-XII nml as tested, no motor/sensory deficits, alert, normal mood/affect, oriented x 3 Skin: normal color, warm/dry Procedures/Interventions Date of ETT Placement: Nov 12, 2018 Progress/Results/Core Measures Results/Orders Lab Results Laboratory Tests Test 07/07/19 05:05 Range/Units White Blood Count 9.6 4.3-11.0 10^3/uL Red Blood Count 4.46 4.35-5.85 10^6/uL Hemoglobin 14.6 13.3-17.7 G/DL Hematocrit 42 40-54 % Mean Corpuscular Volume 93 80-99 FL Mean Corpuscular Hemoglobin 33 25-34 PG Mean Corpuscular Hemoglobin Concent 35 32-36 G/DL Red Cell Distribution Width 14.1 10.0-14.5 % Platelet Count 185 130-400 10^3/uL Mean Platelet Volume 10.5 H 7.4-10.4 FL Neutrophils (%) (Auto) 74 42-75 % Lymphocytes (%) (Auto) 15 12-44 % Monocytes (%) (Auto) 10 0-12 % Eosinophils (%) (Auto) 2 0-10 % Basophils (%) (Auto) 0 0-10 % Neutrophils # (Auto) 7.1 1.8-7.8 X 10^3 Lymphocytes # (Auto) 1.4 1.0-4.0 X 10^3 Monocytes # (Auto) 0.9 0.0-1.0 X 10^3 Eosinophils # (Auto) 0.1 0.0-0.3 10^3/uL Basophils # (Auto) 0.0 0.0-0.1 10^3/uL Sodium Level 136 135-145 MMOL/L Potassium Level 3.1 L 3.6-5.0 MMOL/L Chloride Level 96 L 98-107 MMOL/L Carbon Dioxide Level 25 21-32 MMOL/L Anion Gap 15 H 5-14 MMOL/L Blood Urea Nitrogen 10 7-18 MG/DL Creatinine 0.78 0.60-1.30 MG/DL Estimat Glomerular Filtration Rate > 60 BUN/Creatinine Ratio 13 Glucose Level 112 H 70-105 MG/DL Calcium Level 9.0 8.5-10.1 MG/DL Corrected Calcium 9.4 8.5-10.1 MG/DL Total Bilirubin 0.9 0.1-1.0 MG/DL Aspartate Amino Transf (AST/SGOT) 36 H 5-34 U/L Alanine Aminotransferase (ALT/SGPT) 43 0-55 U/L Alkaline Phosphatase 75 40-136 U/L C-Reactive Protein High Sensitivity 8.77 H 0.00-0.50 MG/DL Total Protein 6.7 6.4-8.2 GM/DL Albumin 3.5 3.2-4.5 GM/DL Lipase 485 H 8-78 U/L My Orders Orders - BRIANNA MCMAHON MD Cbc With Automated Diff (07/07/19 05:14) Comprehensive Metabolic Panel (07/07/19 05:14) Hs C Reactive Protein (07/07/19 05:14) Lipase (07/07/19 05:14) Ua Culture If Indicated (07/07/19 05:14) Ed Iv/Invasive Line Start (07/07/19 05:14) Fentanyl Injection (Sublimaze Injection (07/07/19 05:15) Ondansetron Injection (Zofran Injectio (07/07/19 05:15) Lactated Ringers (Lr 1000 Ml Iv Solution (07/07/19 05:39) Alcohol (07/07/19 05:51) Fentanyl Injection (Sublimaze Injection (07/07/19 06:00) Medications Given in ED Current Medications Medications Dose Ordered Sig/[place] Route Start Time Stop Time Status Last Admin Dose Admin Fentanyl Citrate 50 mcg ONCE ONCE IVP 07/07/19 05:15 07/07/19 05:16 DC 07/07/19 05:26 50 MCG Fentanyl Citrate 50 mcg ONCE ONCE IVP 07/07/19 06:00 07/07/19 06:01 DC 07/07/19 06:07 50 MCG Lactated Ringer's 1,000 ml @ 0 mls/hr Q0M ONCE IV 07/07/19 05:39 07/07/19 05:40 DC 07/07/19 05:47 0 MLS/HR Ondansetron HCl 8 mg ONCE ONCE IVP 07/07/19 05:15 07/07/19 05:16 DC 07/07/19 05:26 8 MG Vital Signs/I&O 07/07/19 05:03 Temp 36.8 Pulse 98 Resp 18 B/P (MAP) 141/58 (85) Pulse Ox 97 O2 Delivery Room Air Blood Pressure Mean: 85 POS Progress Progress Note #1: Time: 05:38 Progress Note Patient was seen and examined. Labs are pending. Zofran and fentanyl were given for symptom management. Progress Note #2: Time: 06:12 Progress Note Patient had a mildly elevated lipase suggesting pancreatitis. He received a total of 2 doses of fentanyl for pain management. A liter of LR is being infused. He will be admitted for supportive care. A gallbladder ultrasound will be obtained later today. Departure Communication (Admissions) Time/Spoke to Admitting Phy: 05:55 Dr. Carreon Impression Primary Impression: Acute pancreatitis Qualified Codes: K85.20 - Alcohol induced acute pancreatitis without necrosis or infection Additional Impressions: Hypokalemia Upper abdominal pain Nausea and vomiting Qualified Codes: R11.2 - Nausea with vomiting, unspecified Disposition: HOME, SELF-CARE Condition: Improved Admissions Decision to Admit Reason: Admit from ER (General) Decision to Admit/Date: Jul 07, 2019 Time/Decision to Admit Time: 05:45 Departure-Patient Inst. Referrals: LAZARO CARREON DO (PCP/Family) Primary Care Physician BRIANNA MCMAHON MD Jul 07, 2019 05:38 POS
[2019-07-07] MEDS ORDERED: LACTATED RINGERS 1,000 ML IV ONE (05:39)
--- NOTE | 2019-07-07 06:40 | NUR ---
BRAD MIRZA admitted to room 409-1, with an admitting diagnosis of Acute Pancreatitis, on 07/07/19 from ER via . BRAD MIRZA introduced to surroundings, call light, bed controls, phone, TV, temperature control, lights, meal times, smoking policy, visitor policy, side rail policy, bathrooms and showers. Patient Rights given to patient in the handbook. BRAD MIRZA verbalizes understanding that [facility] is not responsible for the loss or damage to any personal effects or valuables that are kept in the patients posession during their hospitalization. The following Patient Care Plans were discussed with the patient: Discharge Planning, pain control, diet and procedures oredered. BRAD MIRZA verbalizes understanding of Interdisciplinary Patient Education. Patient was informed about the Rapid Response Team and its purpose. LR infusing per gravity in left AC.
[2019-07-07 06:46] VITALS: BP 162/82
[2019-07-07] MEDS ORDERED: CATHETER FLUSH 10 ML SYR IV PRN ×2 (07:00→08:30)
[2019-07-07] MEDS: fentaNYL INJECTION 100 MCG/2 ML AMP IV PRN ×7 (08:06→22:22)
[2019-07-07 08:08] VITALS: BP 157/82
--- NOTE | 2019-07-07 08:18 | History & Physical ---
History of Present Illness History of Present Illness Reason for visit/HPI Patient came out to the emergency room for upper abdominal pain for the last 4 days. Patient has not been eating for the last 4 days. Patient having vomiting and liquid stools. Patient not sleeping. Surgeries pacemaker, bypass and stent, torn anterior cruciate ligament, and tonsils Date of Admission Jul 07, 2019 at 05:59 Time Seen by a Provider: 08:15 I consulted on this patient on 07/07/19 08:15 Attending Physician Lazaro Carreon DO Admitting Physician Lazaro Carreon DO Consult Allergies and Home Medications Allergies Coded Allergies: Penicillins (Verified Allergy, Mild, ITCHING, 11/05/18) ketorolac (Unverified Allergy, Mild, ITCHING, 11/05/18) Home Medications Albuterol Sulfate 18 Gm Hfa.aer.ad, 2 PUFF INH Q4H PRN for SHORTNESS OF BREATH, (Reported) Aspirin 81 Mg Tab.chew, 81 MG PO DAILY, (Reported) Atorvastatin Calcium 40 Mg Tablet, 40 MG PO DAILY Prescribed by: ALFREDO WANG on 10/23/18925 Baclofen 10 Mg Tablet, 10 MG PO TID PRN for MUSCLE SPASMS, (Reported) Clopidogrel Bisulfate 75 Mg Tablet, 75 MG PO DAILY, (Reported) Fluticasone Propionate 16 Gm [place].susp, 2 SPRAYS NS DAILY, (Reported) Fluticasone/Salmeterol 1 Each Blst.w.dev, 1 PUFF IH BID, (Reported) Furosemide 40 Mg Tablet, 40 MG PO DAILY Prescribed by: ALFREDO WANG on 10/23/18925 Gabapentin 600 Mg Tablet, 600 MG PO TID, (Reported) Hydrocodone Bit/Acetaminophen 1 Ea Tablet, 1-2 EA PO Q6H PRN for PAIN-MODERATE Prescribed by: BC CLAROS on 11/15/18 1240 Ipratropium/Albuterol Sulfate 3 Ml Ampul.neb, 3 ML INH RTQ4HR Prescribed by: BC CLAROS on 11/15/18 124 Metoprolol Succinate 50 Mg Tab.er.24h, 50 MG PO DAILY Prescribed by: ALFREDO WANG on 10/23/18 09 Ondansetron 4 Mg Tab.rapdis, 4 MG PO Q6H PRN for NAUSEA/VOMITING Prescribed by: JOSE MENESES on 03/24/19 1810 Tiotropium [place] 4 Gm Mist.inhal, 2 PUFF IH DAILY, (Reported) Tramadol HCl 50 Mg Tablet, 50 MG PO TID PRN for PAIN-MILD, (Reported) Valsartan 80 Mg Tablet, 80 MG PO DAILY Prescribed by: ALFREDO WANG on 10/23/18 0986 Patient Home Medication List Home Medication List Reviewed: No Past Xgmdrzo-Vhxdgb-Dsbwzs Hx Past Med/Social Hx: Reviewed Nursing Past Med/Soc Hx Patient Social History Marrital Status: Alcohol Use: Occasionally Uses Number of Drinks Today: AA Alcohol Beverage of Choice: Beer Recreational Drug Use: No Drug of Choice: "ALL KINDS" WHEN IN 20'S Smoking Status: Current Everyday Smoker Type Used: Cigars, Cigarettes 2nd Hand Smoke Exposure: Yes Recent Foreign Travel: No Contact w/other who traveled: No Recent Hopitalizations: No Recent Infectious Disease Expo: No Immunizations Up To Date Tetanus Booster (TDap): Less than 5yrs Date of Pneumonia Vaccine: May 10, 2017 Date of Influenza Vaccine: Jul 10, 2018 Seasonal Allergies Seasonal Allergies: No Past Medical History Surgeries: Adenoidectomy, Cardiac, CABG, Coronary Stent, Defibrillator, Open Heart Surgery, Orthopedic, Pacemaker, Tonsillectomy Respiratory: Asthma, COPD Currently Using CPAP: Yes Currently Using BIPAP: No Cardiac: Cardiomyopathy, Coronary Artery Disease, Heart Attack, High Cho lesterol, Hypertension Neurological: Stroke Reproductive: No Sexually Transmitted Disease: No HIV/AIDS: No Musculoskeletal: Degenerate Disk Disease, Arthritis, Chronic Back Pain Loss of Vision: Bilateral Hearing Impairment: Denies Psychosocial: Anxiety History of Blood Disorders: No Adverse Reaction to Blood Burns: No (N/A) Family History Cardiovascular disease 19 MOTHER PATERNAL GRANDMOTHER Completed stroke PATERNAL GRANDFATHER Diabetes mellitus 19 MOTHER Hypertension 19 MOTHER PATERNAL GRANDMOTHER Neoplasm 19 FATHER (LUNG CANCER - AGE 42) MATERNAL GRANDMOTHER (BREAST CANCER) No Pertinent Family Hx Review of Systems Constitutional: no symptoms reported EENTM: no symptoms reported Respiratory: no symptoms reported Cardiovascular: no symptoms reported Gastrointestinal: abdominal pain, other (Upper abdomen) Genitourinary: no symptoms reported Physical Exam Vital Signs Vital Signs - First Documented 07/07/19 05:03 Temp 36.8 Pulse 98 Resp 18 B/P (MAP) 141/58 (85) Pulse Ox 97 O2 Delivery Room Air Capillary Refill : Less Than 3 Seconds Height, Weight, BMI Height: 5'8.00" Weight: 258lbs. 0.00oz. [id number]; 36.80 BMI Method:Stated General Appearance: No Apparent Distress, WD/WN Eyes: Bilateral Eye Normal Inspection HEENT: Normal ENT Inspection Neck: Full Range of Motion, Normal Inspection Respiratory: Lungs Clear, No Accessory Muscle Use, No Respiratory Distress Cardiovascular: Regular Rate, Rhythm, No Murmur Gastrointestinal: Soft Assessment/Plan Assessment and Plan Acute pancreatitis. Vomiting. Hypokalemia. CAD. Hyperlipidemia. Upper abdominal pain. Nausea and vomiting Admission Diagnosis Admission Status: Observation LAZARO CARREON DO Jul 07, 2019 08:18 POS
[2019-07-07] MEDS ORDERED: NS 100 ML (IVPB) BAG IV ONE (08:30)
[2019-07-07] MEDS ORDERED: IOHEXOL 350 MG/ML 100 ML (OMNIPAQUE 350) VIAL IV ONE (08:30)
[2019-07-07] MEDS ORDERED: HOLD METFORMIN - RECEIVED CONTRAST 20 ML VIAL IV SCH (08:30)
[2019-07-07] MEDS ORDERED: NICOTINE 21 MG (NICODERM) PATCH TD PRN (09:00)
[2019-07-07 09:05] VITALS: BP 141/58
--- NOTE | 2019-07-07 09:11 | Diagnostic Imaging Report ---
EXAMINATION: US Abdomen limited. TECHNIQUE: Multiple real-time grayscale images were obtained over the right upper quadrant in various projections. HISTORY: Pancreatitis COMPARISON: None available. FINDINGS: Study quality is diminished by extensive bowel gas. Only portions of the right hemiliver are visualized. The common duct and pancreas are obscured. Gallbladder appears normal without wall thickening or pericholecystic fluid. Right kidney is normal. There is no ascites. No biliary ductal dilation is seen. Sonographic Siegel sign is negative. IMPRESSION: 1. Limited study due to bowel gas shadowing with normal gallbladder, negative sonographic Siegel sign. Dictated by: Dictated on workstation # [id number]
--- NOTE | 2019-07-07 09:15 | NUR ---
Patient off floor at this time to CT.
[2019-07-07] MEDS: ONDANSETRON 4 MG/2 ML (SDV) Z0FRAN IV SCH ×2 (09:20→20:02)
--- NOTE | 2019-07-07 09:35 | NUR ---
Patient back to room at this time.
--- NOTE | 2019-07-07 09:54 | Diagnostic Imaging Report ---
PROCEDURE: CT abdomen and pelvis with contrast. TECHNIQUE: Multiple contiguous axial images were obtained through the abdomen and pelvis after administration of intravenous contrast. Auto Exposure Controls were utilized during the CT exam to meet ALARA standards for radiation dose reduction. INDICATION: 5 day history of left upper quadrant pain. COMPARISON: No prior examinations are available for comparison. FINDINGS: There is some thickening of the distal body and tail of the pancreas with mild peripancreatic edematous infiltration of the adjacent fat and slight thickening along the left lateral conal fascia. There is fatty infiltration of the liver. No gallstone or biliary calculus is found. There is no bile ductal dilatation. There is no acute fluid collection or pseudocyst. No findings of pancreatic necrosis. No parenchymal gas. There are aortoiliac atherosclerotic vascular calcifications without segmental occlusion or hemodynamically significant degrees of stenosis. No findings of end organ ischemia. The spleen, adrenals, and kidneys are unremarkable. No bowel obstruction. IMPRESSION: 1. The findings are most consistent with mild acute pancreatitis at its distal body and tail without acute fluid collection or ascites. 2. Fatty liver with no biliary dilatation or visualized stone. Dictated by: Dictated on workstation # [id number]
[2019-07-07] MEDS: NS W/KCL 20 MEQ/L 1,000 ML IV SCH ×2 (10:01→17:59)
[2019-07-07] MEDS: RT-ALBUTEROL/IPRATROPIUM 3 ML (DUONEB) VIAL INH SCH ×4 (10:22→22:05)
--- NOTE | 2019-07-07 10:32 | NUR ---
Initial visit: escorted family to pt's room. Offered hospitality and compassionate presence while engaging in rapport building. Pt resting. Family said pt is of [employer]od[employer] affiliation.
[2019-07-07] MEDS ORDERED: POTA10TA36 PO (10:57)
[2019-07-07] MEDS ORDERED: NITR0.4T39 SL (10:57)
[2019-07-07] MEDS ORDERED: UMEC62.5 INH (10:57)
[2019-07-07] MEDS ORDERED: IPRA3AMP31 IH (11:07)
[2019-07-07] MEDS ORDERED: FURO40TA4 PO (11:07)
--- NOTE | 2019-07-07 11:09 | NUR ---
WENT OVER THE EXT MED HX WITH THE PATIENT. HE VERIFIED HOW HE TAKES THEM. I ALSO CALLED [facility] TO VERIFY THE FILL DATES ARE ACCURATE ON SOME MEDICATIONS HE STATES HE IS TAKING BUT THAT HAVE NOT BEEN FILLED IN QUITE SOME TIME. MEDS HE STATES HE IS TAKING WHEN I ASKED HIM ABOUT THEM HOWEVER ARE PAST DUE SO I REMOVED FROM THE MED REC ARE: 01-23-19 LIPITOR 40MG DAILY #30 10-23-18 METOPROLOL ER 50MG DAILY #30 18 BACLOFEN 10MG TID #63 08-28-18 PLAVIX 75MG DAILY #90 I LEFT THE FUROSEMIDE AND DUONEB ON THE MED REC BECAUSE HE STATES THEY ARE NEEDED. HE FILLED #30 FUROSEMIDE 40MG 10-23-18 AND DUONEB 11-15-18. HE STATES HE TAKES ASPIRIN 81MG OTC DAILY AND USES FLONASE PRN.
[2019-07-07 12:00] VITALS: BP 166/78
[2019-07-07] MEDS ORDERED: RT-ALBUTEROL/IPRATROPIUM 3 ML (DUONEB) VIAL INH PRN (12:00)
[2019-07-07 16:20] VITALS: BP 135/74
[2019-07-07] MEDS ORDERED: ZOLPIDEM 5 MG (AMBIEN) TAB PO NR (20:00)
[2019-07-07 20:20] VITALS: BP 162/95
[2019-07-08] VITALS (7 sets, daily range): BP systolic 159–201; BP diastolic 68–110
[2019-07-08] MEDS: fentaNYL INJECTION 100 MCG/2 ML AMP IV PRN ×4 (00:37→07:10)
[2019-07-08] MEDS: NS W/KCL 20 MEQ/L 1,000 ML IV SCH ×3 (00:46→14:31)
[2019-07-08] MEDS: RT-ALBUTEROL/IPRATROPIUM 3 ML (DUONEB) VIAL INH SCH ×6 (01:38→22:32)
[2019-07-08 06:46] LABS: BASOPHILS % (AUTO) 0 % (0-10); EOSINOPHILS # (AUTO) 0.3 10^3/uL (0.0-0.3); EOSINOPHILS % (AUTO) 4 % (0-10); HEMATOCRIT 38 % (40-54); HEMOGLOBIN 12.9 G/DL (13.3-17.7); LYMPHOCYTES # (AUTO) 1.1 X 10^3 (1.0-4.0); LYMPHOCYTES % (AUTO) 14 % (12-44); MEAN CORPUSCULAR HEMOGLOBIN 32 PG (25-34); MEAN CORPUSCULAR HGB CONC 34 G/DL (32-36); MEAN CORPUSCULAR VOLUME 95 FL (80-99); MEAN PLATELET VOLUME 10.7 FL (7.4-10.4); MONOCYTES # (AUTO) 0.8 X 10^3 (0.0-1.0); MONOCYTES % (AUTO) 11 % (0-12); NEUTROPHILS # (AUTO) 5.5 X 10^3 (1.8-7.8); NEUTROPHILS % (AUTO) 72 % (42-75); PLATELET COUNT 174 10^3/uL (130-400); RED CELL DISTRIBUTION WIDTH 14.2 % (10.0-14.5); WHITE BLOOD COUNT 7.7 10^3/uL (4.3-11.0)
[2019-07-08 07:06] LABS: ALANINE AMINOTRANSFERASE 34 U/L (0-55); ALBUMIN 3.2 GM/DL (3.2-4.5); ALKALINE PHOSPHATASE 75 U/L (40-136); AMYLASE 99 U/L (25-125); BILIRUBIN,TOTAL 0.6 MG/DL (0.1-1.0); BUN/CREATININE RATIO 11; CALCIUM 8.4 MG/DL (8.5-10.1); CARBON DIOXIDE 23 MMOL/L (21-32); CHLORIDE 100 MMOL/L (98-107); CREATININE SERUM 0.64 MG/DL (0.60-1.30); GFR ESTIMATED > 60; GLUCOSE 97 MG/DL (70-105); LIPASE 355 U/L (8-78); POTASSIUM 3.2 MMOL/L (3.6-5.0); SODIUM 135 MMOL/L (135-145); TOTAL PROTEIN 6.2 GM/DL (6.4-8.2)
[2019-07-08] MEDS ORDERED: FUROSEMIDE 40 MG (LASIX) TAB PO PRN (07:45)
[2019-07-08] MEDS ORDERED: NITROGLYCERIN 0.4 MG SL TABS BTL 25'S SL PRN (07:45)
[2019-07-08] MEDS ORDERED: RT-ALBUTEROL/IPRATROPIUM 3 ML (DUONEB) VIAL IH PRN (07:45)
--- NOTE | 2019-07-08 07:45 | Progress Note ---
Subjective Time Seen by a Provider: 07:42 Subjective/Events-last exam Patient doing better today. Patient taking fluids. To advance diet. Pancreatic enzymes are going down. Plan to discharge patient today. To see in office Saturday at 11 a.m. Objective Exam Vital Signs Date Time Temp Pulse Resp B/P (MAP) Pulse Ox O2 Delivery O2 Flow Rate FiO2 07/08/19 06:28 93 Room Air 07/08/19 04:55 36.5 92 18 159/68 (98) 98 Room Air 07/08/19 01:38 94 Room Air 07/08/19 01:00 94 07/08/19 00:00 36.6 93 18 167/81 (109) 96 Room Air 07/07/19 22:05 95 Room Air 07/07/19 20:20 36.8 99 18 162/95 (117) 96 Room Air 07/07/19 20:04 Room Air 07/07/19 19:00 98 07/07/19 18:36 90 Room Air 07/07/19 16:20 37.0 90 16 135/74 (94) 94 Room Air 07/07/19 15:12 89 Room Air 07/07/19 12:14 90 07/07/19 12:00 36.5 93 18 166/78 (107) 94 Room Air 07/07/19 10:22 91 Room Air 07/07/19 10:03 95 07/07/19 09:05 36.8 98 97 21 07/07/19 08:08 36.3 96 22 157/82 (107) 95 Room Air 07/07/19 08:00 Room Air 07/07/19 08:00 Room Air I & O 07/08/19 07:00 Intake Total 3500 ml Output Total 50 ml Balance 3450 ml Capillary Refill : Less Than 3 Seconds General Appearance: No Apparent Distress, WD/WN HEENT: Normal ENT Inspection Neck: Full Range of Motion, Normal Inspection Respiratory: Lungs Clear, No Accessory Muscle Use, No Respiratory Distress Cardiovascular: Regular Rate, Rhythm, No Murmur Gastrointestinal: non tender, soft Results Lab Laboratory Tests 07/08/19 05:50 Laboratory Tests 07/08/19 05:50: White Blood Count 7.7, Red Blood Count 4.00L, Hemoglobin 12.9L, Hematocrit 38L, Mean Corpuscular Volume 95, Mean Corpuscular Hemoglobin 32, Mean Corpuscular Hemoglobin Concent 34, Red Cell Distribution Width 14.2, Platelet Count 174, Mean Platelet Volume 10.7H, Neutrophils (%) (Auto) 72, Lymphocytes (%) (Auto) 14, Monocytes (%) (Auto) 11, Eosinophils (%) (Auto) 4, Basophils (%) (Auto) 0, Neutrophils # (Auto) 5.5, Lymphocytes # (Auto) 1.1, Monocytes # (Auto) 0.8, Eosinophils # (Auto) 0.3, Basophils # (Auto) 0.0, Sodium Level 135, Potassium Level 3.2L, Chloride Level 100, Carbon Dioxide Level 23, Anion Gap 12, Blood Urea Nitrogen 7, Creatinine 0.64, Estimat Glomerular Filtration Rate > 60, BUN/Creatinine Ratio 11, Glucose Level 97, Calcium Level 8.4L, Corrected Calcium 9.0, Total Bilirubin 0.6, Aspartate Amino Transf (AST/SGOT) 37H, Alanine Aminotransferase (ALT/SGPT) 34, Alkaline Phosphatase 75, Total Protein 6.2L, Albumin 3.2, Amylase Level 99, Lipase 355H Assessment/Plan Assessment/Plan Assess & Plan/Chief Complaint Minimal acute pancreatitis. Minimal thickness of distal body and tail of pancreas. Dehydration. COPD. CAD. Hypertension Clinical Quality Measures Admission Status Admission Dx Acute pancreatitis. Vomiting. Hypokalemia. CAD. Hyperlipidemia. Upper abdominal pain. Nausea and vomiting DVT/VTE Risk/Contraindication: Risk Factor Score Per Nursin RFS Level Per Nursing on Admit: 4+=Very High Contraindications-Pharm: Other *list below* LAZARO CARREON DO Jul 08, 2019 07:44 POS
[2019-07-08] MEDS ORDERED: KCL 10 MEQ TAB (MICRO K) PO ONE (08:00)
[2019-07-08] MEDS ORDERED: HYDROcodone/APAP 5 MG/325 MG (LORTAB) TAB PO PRN ×2 (09:00→13:00)
[2019-07-08] MEDS: NICOTINE PATCH REMOVAL TP SCH ×2 (09:25→09:26)
[2019-07-08] MEDS: ASPIRIN 81 MG CHEW (CHILDREN'S ASA) PO SCH (09:25)
[2019-07-08] MEDS: ONDANSETRON 4 MG/2 ML (SDV) Z0FRAN IV SCH ×2 (09:26→20:13)
[2019-07-08] MEDS: GABAPENTIN 600 MG (NEURONTIN) TAB PO SCH ×3 (09:26→20:12)
[2019-07-08] MEDS ORDERED: lisINopril 10 MG (PRINIVIL) TABLET PO NR ×2 (13:30→15:45)
[2019-07-08] MEDS ORDERED: fentaNYL INJECTION 100 MCG/2 ML AMP IVP PRN (15:15)
[2019-07-08] MEDS: UMECLIDINIUM BROMIDE (INCRUSE ELLIPTA) 7'S IH SCH (15:15)
[2019-07-08] MEDS ORDERED: PANTOPRAZOLE 40 MG (PROTONIX) VIAL IV NR (15:30)
[2019-07-08 15:51] LABS: BASOPHILS % (AUTO) 0 % (0-10); EOSINOPHILS # (AUTO) 0.5 10^3/uL (0.0-0.3); EOSINOPHILS % (AUTO) 6 % (0-10); HEMATOCRIT 38 % (40-54); HEMOGLOBIN 13.4 G/DL (13.3-17.7); LYMPHOCYTES # (AUTO) 1.2 X 10^3 (1.0-4.0); LYMPHOCYTES % (AUTO) 15 % (12-44); MEAN CORPUSCULAR HEMOGLOBIN 33 PG (25-34); MEAN CORPUSCULAR HGB CONC 35 G/DL (32-36); MEAN CORPUSCULAR VOLUME 94 FL (80-99); MEAN PLATELET VOLUME 9.9 FL (7.4-10.4); MONOCYTES # (AUTO) 0.8 X 10^3 (0.0-1.0); MONOCYTES % (AUTO) 10 % (0-12); NEUTROPHILS # (AUTO) 5.4 X 10^3 (1.8-7.8); NEUTROPHILS % (AUTO) 68 % (42-75); PLATELET COUNT 181 10^3/uL (130-400); RED CELL DISTRIBUTION WIDTH 13.7 % (10.0-14.5); WHITE BLOOD COUNT 7.9 10^3/uL (4.3-11.0)
--- NOTE | 2019-07-08 16:07 | Diagnostic Imaging Report ---
INDICATION: Abdominal pain with pancreatitis. EXAMINATION: Abdomen. FINDINGS: There is no pathological fecal loading. There is, however, some ectasia of gas containing mid to upper abdominal small and large bowel raising the question of a regional ileus. No evidence for fecal impaction. Pelvic small bowel nondilated. IMPRESSION: 1. Some mild gaseous distention of mid to upper abdominal small and large bowel raising the question of a regional ileus. Given the CT of one day prior, this likely is secondary to pancreatitis. 2. No findings of gastric dilatation. Dictated by: Dictated on workstation # [id number]
[2019-07-08] MEDS: meTOprolol 5 MG/5 ML (LOPRESSOR) VIAL IV SCH ×2 (16:28→20:12)
[2019-07-08] MEDS ORDERED: morphine INJ 4 MG/ML 1 ML (VIAL/SYRINGE) ONE (16:37)
[2019-07-08] MEDS ORDERED: morphine INJ 10 MG/ML 1ML (SYR OR VIAL) IVP PRN (16:45)
--- NOTE | 2019-07-08 16:53 | Consultation - Surgery ---
History of Present Illness History of Present Illness Patient Consulted On(kay/time) 07/08/19 16:41 Time Seen by Provider: 16:19 History of Present Illness Surgery asked to consult regarding Pancreatitis. HPI per ED: This 59-year-old gentleman presents to the emergency room with complaints of consistent upper abdominal pain for the past 4 days. He has had vomiting and some small liquidy stools. He reports subjective fever but he is afebrile at the moment. He denies any exacerbating or alleviating factors. When I spoke to pt he stated the pain is getting worse today, he has never had this pain (prior to this episode). He points to LUQ and then motions across upper abdomen. He states "I think the broth today made it worse". He is starting to sweat and appears in moderate pain. He rates the pain now as at least 9 out of 10. Pain has not really improved since it started on Saturday. He describes a sharp stabbing pain. Pt states he occasionally get heartburn, but this is nothing like that. Allergies and Home Medications Allergies Coded Allergies: Penicillins (Verified Allergy, Mild, ITCHING, 11/05/18) ketorolac (Unverified Allergy, Mild, ITCHING, 11/05/18) Home Medications Albuterol Sulfate 18 Gm Hfa.aer.ad, 2 PUFF INH Q4H PRN for SHORTNESS OF BREATH, (Reported) Aspirin 81 Mg Tab.chew, 81 MG PO DAILY, (Reported) Fluticasone Propionate 16 Gm [place].susp, 2 SPRAYS NS DAILY PRN for ALLERGIES, (Reported) Furosemide 40 Mg Tablet, 40 MG PO DAILY PRN for SWELLING, (Reported) LAST FILLED #30 10-23-18 Gabapentin 600 Mg Tablet, 600 MG PO TID, (Reported) Ipratropium/Albuterol Sulfate 3 Ml Ampul.neb, 3 ML IH Q4H PRN for SHORTNESS OF BREATH, (Reported) LAST FILLED 11-15-19 Nitroglycerin 0.4 Mg Tab.subl, 0.4 MG SL UD PRN for CHEST PAIN, (Reported) Potassium Chloride 10 Meq Tab.er.prt, 10 MEQ PO Q48H, (Reported) Trazodone HCl 50 Mg Tablet, 50 MG PO HS, (Reported) Umeclidinium [place] 62.5 Mcg Blst.w.dev, 1 PUFF INH DAILY, (Reported) Patient Home Medication List Home Medication List Reviewed: Yes Past Dewjzqr-Obxbwr-Vvelkx Hx Patient Social History Alcohol Use: Regular Use (almost daily, 6-10 drinks) Number of Drinks Today: AA Recreational Drug Use: No Drug of Choice: "ALL KINDS" WHEN IN 20'S Smoking Status: Current Everyday Smoker (1 ppd x 40yrs) Type Used: Cigars, Cigarettes 2nd Hand Smoke Exposure: Yes Recent Foreign Travel: No Contact w/Someone Who Travel: No Recent Infectious Disease Expo: No Recent Hopitalizations: No Immunizations Up To Date Tetanus Booster (TDap): Less than 5yrs Date of Pneumonia Vaccine: May 10, 2017 Date of Influenza Vaccine: Jul 10, 2019 Seasonal Allergies Seasonal Allergies: No Surgeries History of Surgeries: Yes Surgeries: Adenoidectomy, Cardiac, CABG, Coronary Stent, Defibrillator, Open Heart Surgery, Orthopedic, Pacemaker, Tonsillectomy Respiratory History of Respiratory Disorde: Yes Respiratory Disorders: Asthma, Sleep Apnea, COPD Cardiovascular History of Cardiac Disorders: Yes Cardiac Disorders: Cardiomyopathy, Coronary Artery Disease, Heart Attack, High Cholesterol, Hypertension Neurological History of Neurological Disord: Yes Neurological Disorders: Stroke Reproductive System Hx Reproductive Disorders: No Sexually Transmitted Disease: No HIV/AIDS: No Genitourinary History of Genitourinary Disor: No Gastrointestinal History of Gastrointestinal Di: No Musculoskeletal History of Musculoskeletal Dis: Yes Musculoskeletal Disorders: Degenerate Disk Disease, Arthritis, Chronic Back Pain Endocrine History of Endocrine Disorders: No HEENT History of HEENT Disorders: Yes Loss of Vision: Bilateral Hearing Impairment: Denies Cancer History of Cancer: No Psychosocial History of Psychiatric Problem: Yes Behavioral Health Disorders: Anxiety Integumentary History of Skin or Integumenta: No Blood Transfusions History of Blood Disorders: No Adverse Reaction to a Blood Tr: No (N/A) Family Medical History Significant Family History: Heart Disease, Cancer, Hypertension Family Medial History: Cardiovascular disease 19 MOTHER PATERNAL GRANDMOTHER Completed stroke PATERNAL GRANDFATHER Diabetes mellitus 19 MOTHER Hypertension 19 MOTHER PATERNAL GRANDMOTHER Neoplasm 19 FATHER (LUNG CANCER - AGE 42) MATERNAL GRANDMOTHER (BREAST CANCER) Review of Systems-General Constitutional: No chills; diaphoresis; No dizziness; malaise EENTM: No blurred vision, No double vision, No mouth pain, No epistaxis Respiratory: No cough, No dyspnea on exertion, No hemoptysis; orthopnea, short of breath Cardiovascular: No chest pain, No edema; Hx of Intervention; No palpitations; vascular heart diseas Gastrointestinal: abdominal pain, diarrhea; No hematemesis, No jaundice, No loss of appetite; nausea, vomiting Genitourinary: No dysuria, No frequency, No hematuria Musculoskeletal: joint pain, joint swelling, muscle pain, muscle stiffness Skin: No lesions Psychiatric/Neurological: Anxiety; Denies Depressed; Headache; Denies Tremors Other pt denies hx of abnormal bleeding or bruising Physical Exam-General Problems Physical Exam Vital Signs Vital Signs - First Documented 07/07/19 07/07/19 05:03 09:05 Temp 36.8 Pulse 98 Resp 18 B/P (MAP) 141/58 (85) Pulse Ox 97 O2 Delivery Room Air FiO2 21 Capillary Refill : Less Than 3 Seconds General Appearance: moderate distress, obese Eyes: Bilateral Eye PERRL, Bilateral Eye EOMI HEENT: pharynx normal; No scleral icterus (R), No scleral icterus (L) Neck: non-tender, full range of motion, supple, normal inspection Respiratory: chest non-tender, no respiratory distress, no accessory muscle use, decreased breath sounds Cardiovascular: no edema, no murmur, tachycardia Gastrointestinal: normal bowel sounds, no organomegaly, no pulsatile mass, distended (may just be his normal), guarding (voluntary), tenderness (LUQ mostly but also epigastric and RUQ) Rectal: deferred Back: no CVA tenderness, no vertebral tenderness Extremities: normal range of motion, non-tender, normal inspection, no pedal edema, no calf tenderness 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/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: 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 tested, no motor/sensory deficits, alert, normal mood/affect, oriented x 3 Skin: normal color, diaphoresis Lymphatic: no adenopathy (neck, axilla or groin) Data Review Labs Laboratory Tests 07/08/19 05:50: White Blood Count 7.7, Red Blood Count 4.00L, Hemoglobin 12.9L, Hematocrit 38L, Mean Corpuscular Volume 95, Mean Corpuscular Hemoglobin 32, Mean Corpuscular Hemoglobin Concent 34, Red Cell Distribution Width 14.2, Platelet Count 174, Mean Platelet Volume 10.7H, Neutrophils (%) (Auto) 72, Lymphocytes (%) (Auto) 14, Monocytes (%) (Auto) 11, Eosinophils (%) (Auto) 4, Basophils (%) (Auto) 0, Neutrophils # (Auto) 5.5, Lymphocytes # (Auto) 1.1, Monocytes # (Auto) 0.8, Eosinophils # (Auto) 0.3, Basophils # (Auto) 0.0, Sodium Level 135, Potassium Level 3.2L, Chloride Level 100, Carbon Dioxide Level 23, Anion Gap 12, Blood Urea Nitrogen 7, Creatinine 0.64, Estimat Glomerular Filtration Rate > 60, BUN/Creatinine Ratio 11, Glucose Level 97, Calcium Level 8.4L, Corrected Calcium 9.0, Total Bilirubin 0.6, Aspartate Amino Transf (AST/SGOT) 37H, Alanine Aminotransferase (ALT/SGPT) 34, Alkaline Phosphatase 75, Total Protein 6.2L, Albumin 3.2, Amylase Level 99, Lipase 355H 07/08/19 15:45: White Blood Count 7.9, Red Blood Count 4.08L, Hemoglobin 13.4, Hematocrit 38L, Mean Corpuscular Volume 94, Mean Corpuscular Hemoglobin 33, Mean Corpuscular Hemoglobin Concent 35, Red Cell Distribution Width 13.7, Platelet Count 181, Mean Platelet Volume 9.9, Neutrophils (%) (Auto) 68, Lymphocytes (%) (Auto) 15, Monocytes (%) (Auto) 10, Eosinophils (%) (Auto) 6, Basophils (%) (Auto) 0, Neutrophils # (Auto) 5.4, Lymphocytes # (Auto) 1.2, Monocytes # (Auto) 0.8, Eosinophils # (Auto) 0.5H, Basophils # (Auto) 0.0 Assessment/Plan Assessment/Plan Assessment/Plan Acute pancreatitis COPD, CAD, Hypertension Pt has pancreatitis, most likely secondary to his EtOH intake. US showed no gallstones and looking at CT the CBD as it goes through the pancreas is not dilated. CT does show some inflammation around tail of pancreas. Will make pt npo, can swab mouth but is not allowed to swallow. Will switch to Morphine for pain instead of the Fentanyl. Will monitor pancreatic enzymes and abdominal pain. Clinical Quality Measures DVT/VTE Risk/Contraindication: Risk Factor Score Per Nursin RFS Level Per Nursing on Admit: 4+=Very High Contraindications-Pharm: Other *list below* KIA SANCHES DO Jul 08, 2019 16:52 POS
[2019-07-08] MEDS: LACTATED RINGERS 1,000 ML IV SCH (16:55)
--- NOTE | 2019-07-08 18:06 | NUR ---
patient severe pain, and increased b/p this afternoon - evening - Dr. 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 Gomes - Dr. Walters came assessed patient put in orders for morphine, npo , and LR at 150ml/hr
[2019-07-08] MEDS: morphine INJ 4 MG/ML 1 ML (VIAL/SYRINGE) IVP PRN ×3 (18:49→23:22)
[2019-07-08] MEDS ORDERED: traZODone 50 MG (DESYREL) TAB PO SCH (21:00)
[2019-07-09] MEDS: LACTATED RINGERS 1,000 ML IV SCH ×2 (00:06→08:24)
[2019-07-09] MEDS: meTOprolol 5 MG/5 ML (LOPRESSOR) VIAL IV SCH ×4 (00:06→12:04)
[2019-07-09 00:15] VITALS: BP 180/73
[2019-07-09] MEDS: RT-ALBUTEROL/IPRATROPIUM 3 ML (DUONEB) VIAL INH SCH ×4 (02:24→15:42)
[2019-07-09] MEDS: morphine INJ 4 MG/ML 1 ML (VIAL/SYRINGE) IVP PRN ×2 (02:32→05:07)
[2019-07-09 04:21] VITALS: BP 134/64
[2019-07-09 05:24] LABS: BASOPHILS % (AUTO) 0 % (0-10); EOSINOPHILS # (AUTO) 0.4 10^3/uL (0.0-0.3); EOSINOPHILS % (AUTO) 4 % (0-10); HEMATOCRIT 38 % (40-54); HEMOGLOBIN 13.1 G/DL (13.3-17.7); LYMPHOCYTES # (AUTO) 1.5 X 10^3 (1.0-4.0); LYMPHOCYTES % (AUTO) 16 % (12-44); MEAN CORPUSCULAR HEMOGLOBIN 33 PG (25-34); MEAN CORPUSCULAR HGB CONC 34 G/DL (32-36); MEAN CORPUSCULAR VOLUME 96 FL (80-99); MEAN PLATELET VOLUME 10.2 FL (7.4-10.4); MONOCYTES % (AUTO) 11 % (0-12); NEUTROPHILS # (AUTO) 6.6 X 10^3 (1.8-7.8); NEUTROPHILS % (AUTO) 70 % (42-75); PLATELET COUNT 187 10^3/uL (130-400); RED CELL DISTRIBUTION WIDTH 13.7 % (10.0-14.5); WHITE BLOOD COUNT 9.4 10^3/uL (4.3-11.0)
[2019-07-09 05:49] LABS: ALANINE AMINOTRANSFERASE 39 U/L (0-55); ALBUMIN 3.1 GM/DL (3.2-4.5); ALKALINE PHOSPHATASE 56 U/L (40-136); AMYLASE 99 U/L (25-125); BILIRUBIN,TOTAL 0.7 MG/DL (0.1-1.0); BUN/CREATININE RATIO 7; CARBON DIOXIDE 25 MMOL/L (21-32); CHLORIDE 101 MMOL/L (98-107); GFR ESTIMATED > 60; GLUCOSE 101 MG/DL (70-105); LIPASE 322 U/L (8-78); POTASSIUM 4.1 MMOL/L (3.6-5.0); SODIUM 140 MMOL/L (135-145)
[2019-07-09] MEDS: UMECLIDINIUM BROMIDE (INCRUSE ELLIPTA) 7'S IH SCH (07:11)
[2019-07-09 07:36] VITALS: BP 130/76
--- NOTE | 2019-07-09 08:02 | Progress Note ---
Subjective Time Seen by a Provider: 07:58 Subjective/Events-last exam Patient feeling better today. Patient not having any pain this a.m. Patient wants to go home. To start with fluids with patient this a.m. and advance diet. . Blood pressure better this morning. Abdominal x-ray shows ileus due to pancreatitis or pain medication Objective Exam Vital Signs Date Time Temp Pulse Resp B/P (MAP) Pulse Ox O2 Delivery O2 Flow Rate FiO2 07/09/19 07:36 36.7 75 18 130/76 (94) 96 Room Air 07/09/19 07:13 Room Air 07/09/19 07:12 95 Room Air 07/09/19 04:21 36.8 77 16 134/64 (87) 93 Room Air 07/09/19 02:24 96 Room Air 07/09/19 01:00 79 07/09/19 00:15 37.1 80 18 180/73 (108) 93 Room Air 07/08/19 22:32 92 Room Air 07/08/19 21:23 73 177/86 (116) 07/08/19 20:00 36.8 89 16 201/110 (140) 96 Room Air 07/08/19 20:00 Room Air 07/08/19 19:00 80 07/08/19 18:49 92 Room Air 07/08/19 16:00 35.7 89 16 186/74 (111) 97 Room Air 07/08/19 13:00 94 07/08/19 12:00 36.6 85 20 189/86 (120) 92 Room Air 07/08/19 10:07 90 Room Air 07/08/19 08:00 36.5 91 21 179/88 (118) 93 Room Air 07/08/19 08:00 Room Air I & O 07/09/19 07:00 Intake Total 2760 ml Output Total 2075 ml Balance 685 ml Capillary Refill : Less Than 3 Seconds General Appearance: No Apparent Distress, WD/WN HEENT: Normal ENT Inspection Neck: Full Range of Motion, Normal Inspection Respiratory: Chest Non Tender, No Accessory Muscle Use, No Respiratory Distress Cardiovascular: Regular Rate, Rhythm, No Murmur Gastrointestinal: non tender, soft Results Lab Laboratory Tests 07/08/19 15:45 07/09/19 05:00 Laboratory Tests 07/08/19 15:45: White Blood Count 7.9, Red Blood Count 4.08L, Hemoglobin 13.4, Hematocrit 38L, Mean Corpuscular Volume 94, Mean Corpuscular Hemoglobin 33, Mean Corpuscular Hemoglobin Concent 35, Red Cell Distribution Width 13.7, Platelet Count 181, Mean Platelet Volume 9.9, Neutrophils (%) (Auto) 68, Lymphocytes (%) (Auto) 15, Monocytes (%) (Auto) 10, Eosinophils (%) (Auto) 6, Basophils (%) (Auto) 0, Neutrophils # (Auto) 5.4, Lymphocytes # (Auto) 1.2, Monocytes # (Auto) 0.8, Eosinophils # (Auto) 0.5H, Basophils # (Auto) 0.0 07/09/19 05:00: White Blood Count 9.4, Red Blood Count 3.99L, Hemoglobin 13.1L, Hematocrit 38L, Mean Corpuscular Volume 96, Mean Corpuscular Hemoglobin 33, Mean Corpuscular Hemoglobin Concent 34, Red Cell Distribution Width 13.7, Platelet Count 187, Mean Platelet Volume 10.2, Neutrophils (%) (Auto) 70, Lymphocytes (%) (Auto) 16, Monocytes (%) (Auto) 11, Eosinophils (%) (Auto) 4, Basophils (%) (Auto) 0, Neutrophils # (Auto) 6.6, Lymphocytes # (Auto) 1.5, Monocytes # (Auto) 1.0, Eosinophils # (Auto) 0.4H, Basophils # (Auto) 0.0, Sodium Level 140, Potassium Level 4.1, Chloride Level 101, Carbon Dioxide Level 25, Anion Gap 14, Blood Urea Nitrogen 5L, Creatinine 0.70, Estimat Glomerular Filtration Rate > 60, BUN/Creatinine Ratio 7, Glucose Level 101, Calcium Level 9.0, Corrected Calcium 9.7, Total Bilirubin 0.7, Aspartate Amino Transf (AST/SGOT) 39H, Alanine Aminotransferase (ALT/SGPT) 39, Alkaline Phosphatase 56, Total Protein 6.0L, Albumin 3.1L, Amylase Level 99, Lipase 322H Assessment/Plan Assessment/Plan Assess & Plan/Chief Complaint Minimal acute pancreatitis. Minimal thickness of distal body and tail of pancreas. Dehydration. COPD. CAD. Hypertension. . 07/09/19. Acute pancreatitis. Ileus. Abdominal pain resolved. Dehydration. COPD. CAD. Hypertension. Patient feeling better and wants to go home. Pancreatic enzymes keeps on going down Clinical Quality Measures Admission Status Admission Dx Acute pancreatitis. Vomiting. Hypokalemia. CAD. Hyperlipidemia. Upper abdominal pain. Nausea and vomiting DVT/VTE Risk/Contraindication: Risk Factor Score Per Nursin RFS Level Per Nursing on Admit: 4+=Very High Contraindications-Pharm: Other *list below* LAZARO CARREON DO Jul 09, 2019 08:02 POS
[2019-07-09] MEDS: ONDANSETRON 4 MG/2 ML (SDV) Z0FRAN IV SCH (08:24)
[2019-07-09] MEDS: GABAPENTIN 600 MG (NEURONTIN) TAB PO SCH ×2 (08:24→12:06)
[2019-07-09] MEDS: ASPIRIN 81 MG CHEW (CHILDREN'S ASA) PO SCH (08:27)
[2019-07-09] MEDS ORDERED: lisINopril 20 MG (PRINIVIL) TABLET PO SCH (09:00)
[2019-07-09] MEDS ORDERED: lisINopril 10 MG (PRINIVIL) TABLET PO SCH ×2 (09:00)
[2019-07-09] MEDS ORDERED: PANTOPRAZOLE 40 MG (PROTONIX) VIAL IV SCH (09:00)
[2019-07-09 11:20] VITALS: BP 122/65
[2019-07-09] MEDS: NICOTINE PATCH REMOVAL TP SCH (11:22)
--- NOTE | 2019-07-09 12:15 | Consultation-Cardiology ---
HPI-Cardiology Cardiology Consultation: Date of Consultation 07/09/19 Time Seen by a Provider: 09:00 Date of Admission 07/07/19 Attending Physician Joaquin Ryan DO Admitting Physician Joaquin Ryan DO Consulting Physician ALFREDO WANG MD, MA, FACP, FACC, FSCAI, CCDS HPI: Chief Complaint: Reason for consultation: Uncontrolled blood pressure HPI 59 yo man admitted to Dr Ryan with abd dicomfort, diagnosed as acute pancreatitis, who has been experiencing uncontrolled hypertension. We were asked to see in consult. Has responded well to iv metoprolol. Denies cp. Has chronic exertional shortness of breath. Denies palp or syncope. Tires easily. Had had some nausea that has now resolved. Abd discomfort has also improved to being nearly non-existent. Denies diarrhea Review of Systems-Cardiology Review of Systems Constitutional: malaise, tiredness; No weight loss, No weight gain Eyes: No vision change Ears/Nose/Throat: No ear discharge, No nasal drainage, No recent hearing loss Respiratory: As described under HPI Cardiovascular: As described under HPI Gastrointestinal: As described under HPI Genitourinary: No dysuria, No hematuria, No urine frequency changes Musculoskeletal: back pain (chronic) Skin: No rash, No ulcerations Psychiatric/Neurological: No seizure, No focal weakness, No syncope Hematologic: No bleeding abnormalities WFA-[id number]-Kwlwhv Hx Patient Social History Marrital Status: Alcohol Use: Regular Use (almost daily, 6-10 drinks) Recreational Drug Use: No Drug of Choice: "ALL KINDS" WHEN IN 20'S Smoking Status: Current Everyday Smoker (1 ppd x 40yrs) Type Used: Cigars, Cigarettes 2nd Hand Smoke Exposure: Yes Recent Foreign Travel: No Recent Infectious Disease Expo: No Hospitalization with Isolation: Denies Immunizations Up To Date Tetanus Booster (TDap): Less than 5yrs Date of Pneumonia Vaccine: May 10, 2017 Date of Influenza Vaccine: Jul 10, 2019 Past Medical History PMH As described under Assessment. Family Medical History Family Medical History: Family h/o mother having CAD and HTN. Family History: Cardiovascular disease 19 MOTHER PATERNAL GRANDMOTHER Completed stroke PATERNAL GRANDFATHER Diabetes mellitus 19 MOTHER Hypertension 19 MOTHER PATERNAL GRANDMOTHER Neoplasm 19 FATHER (LUNG CANCER - AGE 42) MATERNAL GRANDMOTHER (BREAST CANCER) Allergies and Home Medications Allergies Coded Allergies: Penicillins (Verified Allergy, Mild, ITCHING, 11/05/18) ketorolac (Unverified Allergy, Mild, ITCHING, 11/05/18) Home Medications Albuterol Sulfate 18 Gm Hfa.aer.ad, 2 PUFF INH Q4H PRN for SHORTNESS OF BREATH, (Reported) Aspirin 81 Mg Tab.chew, 81 MG PO DAILY, (Reported) Fluticasone Propionate 16 Gm [place].susp, 2 SPRAYS NS DAILY PRN for ALLERGIES, (Reported) Furosemide 40 Mg Tablet, 40 MG PO DAILY PRN for SWELLING, (Reported) LAST FILLED #30 10-23-18 Gabapentin 600 Mg Tablet, 600 MG PO TID, (Reported) Ipratropium/Albuterol Sulfate 3 Ml Ampul.neb, 3 ML IH Q4H PRN for SHORTNESS OF BREATH, (Reported) LAST FILLED 11-15-18 Nitroglycerin 0.4 Mg Tab.subl, 0.4 MG SL UD PRN for CHEST PAIN, (Reported) Potassium Chloride 10 Meq Tab.er.prt, 10 MEQ PO Q48H, (Reported) Trazodone HCl 50 Mg Tablet, 50 MG PO HS, (Reported) Umeclidinium [place] 62.5 Mcg Blst.w.dev, 1 PUFF INH DAILY, (Reported) Patient Home Medication List Home Medication List Reviewed: Yes Physical Exam-Cardiology Physical Exam Vital Signs/I&O 07/09/19 07/09/19 07/09/19 07/09/19 00:15 01:00 02:24 04:21 Temp 37.1 36.8 Pulse 80 79 77 Resp 18 16 B/P (MAP) 180/73 (108) 134/64 (87) Pulse Ox 93 96 93 O2 Delivery Room Air Room Air Room Air 07/09/19 07/09/19 07/09/19 07/09/19 06:59 07:12 07:13 07:36 Temp 36.7 Pulse 77 75 Resp 18 B/P (MAP) 130/76 (94) Pulse Ox 95 96 O2 Delivery Room Air Room Air Room Air 07/09/19 07/09/19 07/09/19 08:00 11:08 11:20 Temp 36.7 Pulse 74 Resp 18 B/P (MAP) 122/65 (84) Pulse Ox 95 94 O2 Delivery Room Air Room Air Room Air 07/09/19 00:00 Intake Total 1360 ml Output Total 1375 ml Balance -15 ml Capillary Refill : Less Than 3 Seconds Constitutional: AAO x 3, well-developed, well-nourished HEENT: EOMI, hearing is well preserved; No xanthelasmas are seen Neck: carotid pulses are 2 + bilaterally, with good upstrokes Respiratory: No accessory muscle use; other (fair, bilateral air entry; prolonged exp) Cardiovascular: regular rate-rhythm, S1 and S2, systolic murmur (2/6 SAM at card base) Gastrointestinal: No tender; distended; No guarding, No rebound; audible bowel sounds Rectal: deferred Extremities: No clubbing, No cyanosis, No significant edema Neurologic/Psychiatric: oriented x 3, other (moves all limbs equally) Skin: No rash on exposed areas, No ulcerations on exposed areas Data Review Labs Laboratory Tests 07/08/19 15:45: White Blood Count 7.9, Red Blood Count 4.08L, Hemoglobin 13.4, Hematocrit 38L, Mean Corpuscular Volume 94, Mean Corpuscular Hemoglobin 33, Mean Corpuscular Hemoglobin Concent 35, Red Cell Distribution Width 13.7, Platelet Count 181, Mean Platelet Volume 9.9, Neutrophils (%) (Auto) 68, Lymphocytes (%) (Auto) 15, Monocytes (%) (Auto) 10, Eosinophils (%) (Auto) 6, Basophils (%) (Auto) 0, Neutrophils # (Auto) 5.4, Lymphocytes # (Auto) 1.2, Monocytes # (Auto) 0.8, Eosinophils # (Auto) 0.5H, Basophils # (Auto) 0.0 07/09/19 05:00: White Blood Count 9.4, Red Blood Count 3.99L, Hemoglobin 13.1L, Hematocrit 38L, Mean Corpuscular Volume 96, Mean Corpuscular Hemoglobin 33, Mean Corpuscular Hemoglobin Concent 34, Red Cell Distribution Width 13.7, Platelet Count 187, Mean Platelet Volume 10.2, Neutrophils (%) (Auto) 70, Lymphocytes (%) (Auto) 16, Monocytes (%) (Auto) 11, Eosinophils (%) (Auto) 4, Basophils (%) (Auto) 0, Neutrophils # (Auto) 6.6, Lymphocytes # (Auto) 1.5, Monocytes # (Auto) 1.0, Eosinophils # (Auto) 0.4H, Basophils # (Auto) 0.0, Sodium Level 140, Potassium Level 4.1, Chloride Level 101, Carbon Dioxide Level 25, Anion Gap 14, Blood Urea Nitrogen 5L, Creatinine 0.70, Estimat Glomerular Filtration Rate > 60, BUN/Creatinine Ratio 7, Glucose Level 101, Calcium Level 9.0, Corrected Calcium 9.7, Total Bilirubin 0.7, Aspartate Amino Transf (AST/SGOT) 39H, Alanine Aminotransferase (ALT/SGPT) 39, Alkaline Phosphatase 56, Total Protein 6.0L, Albumin 3.1L, Amylase Level 99, Lipase 322H Laboratory Tests 07/08/19 05:50 07/08/19 15:45 07/09/19 05:00 A/P-Cardiology Assessment/Admission Diagnosis Uncontrolled hypertension Chronic intermittent chest discomfort, mostly musculoskeletal Chronic systolic CHF Ischemic cardiomyopathy. Echo of 10/21/18: LVEF 25-30%, anteroseptal and apical akinesis, biatrial enlargement, PASP 25 mmHg COPD CAD. Cardiac cath of December 10, 2017: Coronary artery disease is consisting of 80% proximal stenosis of the left anterior descending artery and mid vessel o cclusion of the left anterior descending artery. The distal left anterior descending artery is protected by a patent left internal mammary artery graft to the distal left anterior descending artery. A ramus intermedius artery is known to have overlapping stents (Promus 2.5 x 38 and 2.5 x 12) that were exhibiting up to 90% stenosis. The ostial ramus intermedius had 95% stenosis. The left circumflex artery is known to have a 4.0 x 24 mm stent, which was exhibiting 70% stenosis. To these stenoses in the ramus intermedius and in the left circumflex, kissing balloon angioplasty was carried out, which reduced the stenosis to approximately 30%. The distal ramus intermedius artery has 70% radu nosis where the vessel is of a small caliber and not amenable to intervention. The right coronary artery is a small, nondominant and has diffuse moderately severe disease. Moderately elevated left ventricular end-diastolic pressure. Anterolateral and apical hypokinesis. Mild impairment of global left ventricular systolic function with ejection fraction 45% to 50%. Status post defibrillator placement [place] [address] Reynaga at [facility]. Device was replaced on 07/26/15 after it had reached [place]IG[place]. It is functioning normally on interrogation of May 2019 Reactive airway diseas Chronic tobaccoism - cessation advised Chronic joint and back discomfort. Sleep apnea for which he's on CPAP therapy. History of mild intermittent liver enzyme elevation, likely related to alcohol use, followed by Dr Ryan H/o noncompliance with medications. Hyperlipidemia - PCP managing Bilateral foot pain, more on R, suggestive if sciatica/peripheral neuropathy Segmental pressures of May 2019 is suggestive of mild to mod obstructive PAD of the legs Mild carotid arterial disease on carotid u/s of 10/30/18 Discussion and Recomendations * BP responded well to iv bb. Change to oral * Advised to quit smoking * Monitor labs * Cor risk factor mod discussed with * Management of pancreatitis/abd discomfort is with Dr Walters and Dr Ryan Clinical Quality Measures DVT/VTE Risk/Contraindication: Risk Factor Score Per Nursin RFS Level Per Nursing on Admit: 4+=Very High Contraindications-Pharm: Other *list below* ALFREDO WANG MD FACP FAC CCD Jul 09, 2019 12:14 POS
--- NOTE | 2019-07-09 12:27 | Progress Note - Surgery ---
Subjective Time Seen by a Provider: 11:48 Subjective/Events-last exam Pt seen and examine, looks much better than he did yesterday. Pt states he has no pain and actually ate some broth this am, did not cause pain. He is hungry and wants to go home. Review of Systems General: No Chills, No Night Sweats Pulmonary: No Dyspnea, No Cough Cardiovascular: No: Chest Pain, Palpitations Gastrointestinal: No: Nausea, Vomiting Objective Exam Vital Signs Date Time Temp Pulse Resp B/P (MAP) Pulse Ox O2 Delivery O2 Flow Rate FiO2 07/09/19 11:20 36.7 74 18 122/65 (84) 94 Room Air 07/09/19 11:08 95 Room Air 07/09/19 08:00 Room Air 07/09/19 07:36 36.7 75 18 130/76 (94) 96 Room Air 07/09/19 07:13 Room Air 07/09/19 07:12 95 Room Air 07/09/19 06:59 77 07/09/19 04:21 36.8 77 16 134/64 (87) 93 Room Air 07/09/19 02:24 96 Room Air 07/09/19 01:00 79 07/09/19 00:15 37.1 80 18 180/73 (108) 93 Room Air 07/08/19 22:32 92 Room Air 07/08/19 21:23 73 177/86 (116) 07/08/19 20:00 36.8 89 16 201/110 (140) 96 Room Air 07/08/19 20:00 Room Air 07/08/19 19:00 80 07/08/19 18:49 92 Room Air 07/08/19 16:00 35.7 89 16 186/74 (111) 97 Room Air 07/08/19 13:00 94 I & O 07/09/19 07:00 Intake Total 2760 ml Output Total 2075 ml Balance 685 ml Capillary Refill : Less Than 3 Seconds General Appearance: No Apparent Distress, WD/WN, Obese Respiratory: Chest Non Tender, No Accessory Muscle Use, No Respiratory Distress Cardiovascular: Regular Rate, Rhythm, No Murmur Gastrointestinal: non tender, soft, other (obese) Results Lab Laboratory Tests 07/08/19 15:45: White Blood Count 7.9, Red Blood Count 4.08L, Hemoglobin 13.4, Hematocrit 38L, Mean Corpuscular Volume 94, Mean Corpuscular Hemoglobin 33, Mean Corpuscular Hemoglobin Concent 35, Red Cell Distribution Width 13.7, Platelet Count 181, Mean Platelet Volume 9.9, Neutrophils (%) (Auto) 68, Lymphocytes (%) (Auto) 15, Monocytes (%) (Auto) 10, Eosinophils (%) (Auto) 6, Basophils (%) (Auto) 0, Neutrophils # (Auto) 5.4, Lymphocytes # (Auto) 1.2, Monocytes # (Auto) 0.8, Eosinophils # (Auto) 0.5H, Basophils # (Auto) 0.0 07/09/19 05:00: White Blood Count 9.4, Red Blood Count 3.99L, Hemoglobin 13.1L, Hematocrit 38L, Mean Corpuscular Volume 96, Mean Corpuscular Hemoglobin 33, Mean Corpuscular Hemoglobin Concent 34, Red Cell Distribution Width 13.7, Platelet Count 187, Mean Platelet Volume 10.2, Neutrophils (%) (Auto) 70, Lymphocytes (%) (Auto) 16, Monocytes (%) (Auto) 11, Eosinophils (%) (Auto) 4, Basophils (%) (Auto) 0, Neutrophils # (Auto) 6.6, Lymphocytes # (Auto) 1.5, Monocytes # (Auto) 1.0, Eosinophils # (Auto) 0.4H, Basophils # (Auto) 0.0, Sodium Level 140, Potassium Level 4.1, Chloride Level 101, Carbon Dioxide Level 25, Anion Gap 14, Blood Urea Nitrogen 5L, Creatinine 0.70, Estimat Glomerular Filtration Rate > 60, BUN/Creatinine Ratio 7, Glucose Level 101, Calcium Level 9.0, Corrected Calcium 9.7, Total Bilirubin 0.7, Aspartate Amino Transf (AST/SGOT) 39H, Alanine Aminotransferase (ALT/SGPT) 39, Alkaline Phosphatase 56, Total Protein 6.0L, Albumin 3.1L, Amylase Level 99, Lipase 322H Assessment/Plan Assessment/Plan Assessment/Plan Pancreatitis COPD, CAD, Hypertension Pt has no pain today and had some broth without any difficulty. Lipase done to 322 from 355. Will give pt soft diet for lunch and see if he tolerates it; if he does he can probably go home. Although I did tell him that his pain could come back, any food could make pancreatitis worse and definitely alcohol will. Clinical Quality Measures DVT/VTE Risk/Contraindication: Risk Factor Score Per Nursin RFS Level Per Nursing on Admit: 4+=Very High Contraindications-Pharm: Other *list below* KIA SANCHES DO Jul 09, 2019 12:27 POS
[2019-07-09] MEDS ORDERED: meTOprolol SUCCINATE 100 MG (TOPROL XL) TAB PO NR ×2 (12:30→14:00)
[2019-07-09] MEDS ORDERED: LISI10TA2 PO (15:05)
--- NOTE | 2019-07-10 07:22 | Clinic Account Progress/Dx ---
Clinic Account Progress/Dx DIAGNOSIS: Time Seen by Provider: 07:22 Pancreatitis. Hypertension. Hyperlipidemia. Upper abdominal pain. Nausea and vomiting. Coronary artery disease. Fatty liver LAZARO CARREON DO Jul 10, 2019 07:22 POS
[2019-07-10] MEDS ORDERED: meTOprolol SUCCINATE 100 MG (TOPROL XL) TAB PO SCH (09:00)
== END 2019-07-09 15:00 | disposition home or self-care (01) ==
LOC: EDUNIT# 04:58 → ER 05:00 → UNDOADMOB 05:59 → 4TH 05:59 → UNDODISOB 07-09 16:05
PROVIDERS: ADMIT Family Medicine; ATTEND Family Medicine
DX: K85.90 Acute pancreatitis without necrosis or infection, unspecified (principal); K76.0 Fatty (change of) liver, not elsewhere classified; E78.5 Hyperlipidemia, unspecified; I25.10 Atherosclerotic heart disease of native coronary artery without angina pectoris; I11.9 Hypertensive heart disease without heart failure; I43 Cardiomyopathy in diseases classified elsewhere; M89.29 Other disorders of bone development and growth, multiple sites; M54.9 Dorsalgia, unspecified; M19.90 Unspecified osteoarthritis, unspecified site; E78.00 Pure hypercholesterolemia, unspecified; E87.6 Hypokalemia; F41.9 Anxiety disorder, unspecified; Z88.0 Allergy status to penicillin; Z88.8 Allergy status to other drugs, medicaments and biological substances; Z79.82 Long term (current) use of aspirin; Z79.899 Other long term (current) drug therapy; Z79.02 Long term (current) use of antithrombotics/antiplatelets; Z79.891 Long term (current) use of opiate analgesic; Z95.1 Presence of aortocoronary bypass graft; Z90.89 Acquired absence of other organs; Z95.0 Presence of cardiac pacemaker; Z82.49 Family history of ischemic heart disease and other diseases of the circulatory system; Z82.3 Family history of stroke; Z80.1 Family history of malignant neoplasm of trachea, bronchus and lung; Z80.3 Family history of malignant neoplasm of breast
CPT/HCPCS: 36415; 74019; 74177; 76705; 80053; 80320; 82150; 83690; 85025; 86141; 94640; 94760; 96361; 96374; 96375; 96376; G0378

== ENCOUNTER → 2019-10-01 | Outpatient (CLI) | payer MEDICARE ==
[~2019-10-01] MED LIST changes: +IPRA3AMP31 IH; -METO-370 PO; +METO50TA7 PO; +NITR0.4T39 SL; +TRM50T PO; +TRZ50T PO; +UMEC62.5 INH
--- NOTE | 2019-10-01 12:42 | Diagnostic Imaging Report ---
EXAMINATION: PA chest at 12:33 p.m. INDICATION: Fell, chest pain. FINDINGS: The heart size is within normal limits and stable when compared to 07/08/2019. The sternotomy wires and surgical clips seen on the prior study are again evident. The left-sided defibrillator device noted on the prior study is also again identified and seems stable in position. The leads of the defibrillator device appear to be intact. Clinical follow-up is recommended, however. The lungs are clear. There is no sign of a contusion or pneumothorax, and there is no evidence for failure, pneumonia, or pleural effusion either. The mediastinum is not widened. The osseous structures are intact. IMPRESSION: 1. There is no evidence for an acute cardiopulmonary abnormality. 2. The left-sided defibrillator device appears to be intact. Clinical follow-up is recommended. Dictated by: Dictated on workstation # [id number]
== END ==
LOC: RAD 12:19
PROVIDERS: ATTEND Family Medicine
DX: R07.9 Chest pain, unspecified (principal); W19.XXXA Unspecified fall, initial encounter; Z95.810 Presence of automatic (implantable) cardiac defibrillator
CPT/HCPCS: 71045

== ENCOUNTER → 2020-03-28 | Outpatient (CLI) | payer MEDICARE ==
[~2020-03-28] MED LIST changes: +ACHYD1T PO; +ATOR80TA76 PO; +FLUT1DIS26 INH; +GABA300C PO; -HYDR-3820 PO; +HYDR-83 PO; -LIDO15SO2 MM; +LIDO20SO23 MM; +PANT40TA3 PO
[2020-03-28 08:32] LABS: CHLORIDE 103 MMOL/L (98-107); POTASSIUM 4.4 MMOL/L (3.6-5.0); SODIUM 142 MMOL/L (135-145)
[2020-03-28 08:33] LABS: CALCIUM 8.8 MG/DL (8.5-10.1)
[2020-03-28 08:34] LABS: GLUCOSE 104 MG/DL (70-105)
[2020-03-28 08:35] LABS: CARBON DIOXIDE 26 MMOL/L (21-32)
[2020-03-28 08:38] LABS: GFR ESTIMATED > 60
[2020-03-28 08:39] LABS: BUN/CREATININE RATIO 9
[2020-03-28 08:40] LABS: MAGNESIUM 1.7 MG/DL (1.6-2.4)
== END ==
LOC: LAB 07:51
PROVIDERS: ATTEND Nurse Practitioner Family
DX: I25.10 Atherosclerotic heart disease of native coronary artery without angina pectoris (principal)
CPT/HCPCS: 36415; 80048; 83735